=== PATIENT | female | born 1965 | race Caucasian/White ===

== ENCOUNTER 2018-03-16 10:32 | Emergency (ER) | payer OTHER, SELFPAY ==
[2018-03-16 10:34] VITALS: BP 154/106; PULSE 79; RESP 17; TEMP 36.9; O2SAT 97; BMI 42.4
--- NOTE | 2018-03-16 10:51 | RAD_ITS ---
STUDY: X-RAY - LEFT FOOT CLINICAL: Female, 52 years old. Fourth toe dislocation TECHNIQUE: 3 view(s) of the foot. COMPARISON: None. FINDINGS: There is fracture at the fourth proximal phalanx at the midshaft. The joint spaces are well-maintained. Plantar calcaneal enthesophyte. Os trigonum. No osseous destruction. RAD/Foot min 3 Views IMPRESSION: Fracture fourth proximal phalanx Electronically Signed: Doug Seals MD at 11:13 EDT Tel , Service support ,
--- NOTE | 2018-03-16 10:56 | ED.DCSUM_ITS ---
- ER Visit Summary Date of Service: 03/16/18 Chief Complaint: Left foot injury History of Present Illness: The patient is a 52 F with a history of neuropathy who presents to the emergency department with left foot injury. The patient was in her normal state of health. She states she was waking up and trying to go to the bathroom. She states that she accidentally kicked a tiled stair. She had immediate pain in her left fourth toe. She states she has had some difficulty walking because of pain. She did not fall, she did not strike her head. She denies any other injury. Physical Examination: Vital signs reviewed General: Well-nourished, well-developed Head: Normocephalic, atraumatic Eyes: Pupils equal and reactive, extraocular muscles intact Neck, supple, no lymphadenopathy Heart: Regular rate and rhythm Respiratory: No distress, clear bilaterally Abdomen: Soft, nontender, nondistended, no peritoneal signs Back: Nontender Extremities: Mild tenderness at the distal fourth phalanges of the left foot, normal pulses, skin intact, no edema, no cords Skin: Normal color no rash Neuro: Alert and oriented, no focal or lateralizing deficits Test Results: [] Emergency Department Course and Treatment: The patient has normal pulses and skin is intact. I did obtain plain films. There is evidence of minimally displaced fracture of the proximal fourth phalanx. The patient was placed in a postoperative shoe. She declined analgesics. She will be given podiatry follow -up as an outpatient. She will return with any worsening symptoms. Treatment Plan: [] Disposition: Discharge Impression: 1. Closed fourth left phalangeal fracture This note was generated with [employer] dictation software. It may contain incorrect words, spelling, and punctuation that were not noted in review of the chart prior to signing ED Disposition - Plan for ED Patient: Chief Complaint: Lower Extremity Injury Instructions: ED Fx Toe Closed Referrals: Mansoor Benitez DPM [STAFF PHYSICIAN] -
== END 2018-03-16 11:33 | disposition home or self-care (01) ==
PROVIDERS: Emergency Provider Emergency Medicine; Family Provider Internal Medicine; PCP Internal Medicine
DX: S92.512A Displaced fracture of proximal phalanx of left lesser toe(s), initial encounter for closed fracture (principal); F32.9 Major depressive disorder, single episode, unspecified; G62.9 Polyneuropathy, unspecified; W22.8XXA Striking against or struck by other objects, initial encounter; Y93.9 Activity, unspecified; Y92.9 Unspecified place or not applicable; Z79.899 Other long term (current) drug therapy
CPT/HCPCS: 73630; 99283

== ENCOUNTER → 2018-05-21 14:04 | Outpatient (CLI) | payer OTHER, SELFPAY ==
--- NOTE | 2018-05-21 14:07 | RAD_ITS ---
STUDY: X-RAY - LEFT KNEE REASON FOR EXAM: Female, 52 years old. Knee pain TECHNIQUE: 4 view(s) of the knee. COMPARISON: None. FINDINGS: Normal visualized distal femur. Normal visualized proximal tibia and fibula. Normal proximal tibiofibular articulation. There is no demonstrated fracture. Normal medial femorotibial compartment. There is mild degenerative arthrosis of the lateral femorotibial compartment. Normal patellofemoral articulation. There is no demonstrated joint effusion. The soft tissue structures are unremarkable. RAD/Knee 4 or More Views IMPRESSION: Mild degenerative changes. No acute bony abnormality. Electronically Signed: Josh Guan DO at 14:08 EDT Tel , Service support ,
--- NOTE | 2018-05-21 14:07 | RAD_ITS ---
STUDY: X-RAY - LUMBAR SPINE REASON FOR EXAM: Female, 52 years old. Low back pain TECHNIQUE: 5 view(s) of the lumbar spine were obtained. COMPARISON: None FINDINGS: Normal lumbar lordosis. There is no substantial scoliosis. There is mild anterolisthesis of L5 on S1. There is multilevel endplate spondylosis of the lumbar vertebrae. There is multi-level degenerative disc disease with multi-level disc space narrowing. There is atherosclerotic calcification of the abdominal aorta without a demonstrated aneurysm. RAD/L/S Spine Min 4 Views IMPRESSION: Grade 1 spondylolisthesis at L5-S1. Degenerative changes, without acute fracture. Electronically Signed: Josh Guan DO at 14:06 EDT Tel , Service support ,
--- NOTE | 2018-05-21 14:43 | VDLE_ITS ---
Reason For Study: LEG PAIN RIGHT LEFT CFV is compressible, spontaneous, phasic, GSV is normal. competent and demonstrates normal CFV is compressible, spontaneous, phasic, augmentation. competent, and demonstrates normal Procedure augmentation. Exam performed in department. FV is compressible, spontaneous, phasic, A preliminary report was called and/or faxed competent and demonstrates normal to León Renner. augmentation. POP V is compressible, spontaneous, phasic, competent and demonstrates normal augmentation. T/P Trunk is compressible. PTV is compressible. LT PerV is compressible. Hypoechoic structure noted lt medial pop space measuring 3.3 x 2.2 cm in transverse view. Non-vascular. Interpretation Summary Deep veins of the left lower extremity are patent and compressible segmentally. There is no evidence of left lower extremity deep vein thrombosis. Valvular competence appears intact within the proximal deep venous system on the left . The left greater saphenous vein appears patent and compressible segmentally. A non-vascular, hypoechoic structure is noted in the left medial popliteal space, measuring 3.3 cm x 2.2 cm in transverse dimension. This probably represents a popliteal cyst. Clinical correlation is advised. Ordering Physician: LYNDSEY Napoles Referring Physician: Domi Neff M.D. Performed By: Missy Momin RVT
== END ==
PROVIDERS: Family Provider Internal Medicine; PCP Internal Medicine; Visit Provider Nurse Practitioner Gerontology
DX: M54.5 Low back pain (principal); M25.562 Pain in left knee; M79.605 Pain in left leg
CPT/HCPCS: 72110; 73564; 93971

== ENCOUNTER → 2018-06-17 13:27 | Outpatient (CLI) | payer OTHER, SELFPAY ==
--- NOTE | 2018-06-17 13:29 | MRI_ITS ---
STUDY: MRI LEFT KNEE REASON FOR EXAM: Left knee and leg pain for 2 months, also locking and clicking. TECHNIQUE: Standardized fat and water weighted pulse sequences were obtained in all 3 orthogonal planes. COMPARISON: Radiographs 05/21/2018. FINDINGS: Normal medial meniscus. Normal hyaline cartilage of the medial femorotibial compartment. There are small marginal osteophytes of the medial femorotibial compartment. Normal medial femoral condyle and tibial plateau. There is mild periligamentous inflammation of the medial collateral ligament (T2 coronal image 15). Normal distal semimembranosus, gracilis and semitendinosus tendons. There is a complex of the anterior horn and anterior body of the lateral meniscus (proton-density sagittal images 29-34; proton density coronal images 15, 16) and a small horizontal tear of the free margin of the posterior horn of the lateral meniscus (proton-density sagittal images 33, 34). There is peripheral subluxation of the lateral meniscus. There is arthrosis of the lateral femorotibial compartment with chondral loss (T2 sagittal image 18. There is very mild subchondral bone edema of the lateral tibial plateau (T2 coronal image 14), a stress phenomenon. Normal proximal tibiofibular articulation. Normal lateral collateral (fibular) ligament. Normal popliteus tendon. Normal biceps femoris tendon. Normal anterior cruciate ligament (ACL). Normal posterior cruciate ligament (PCL). Normal congruent patellofemoral articulation. There is arthrosis of the patellofemoral compartment with chondral thinning (T2 sagittal image 16). Normal medial and lateral patellar retinaculum. Normal quadriceps tendon. Normal patellar tendon. Normal Hoffa's fat pad. There is a fybic-yv-kjacgvxm sized joint effusion. There is a popliteal cyst measuring 8.2 cm in length with mild extravasation of fluid (T2 sagittal images 4-10). There are superficial venous varicosities at the anterior aspect of the knee. The otherwise visualized osseous structures are unremarkable. MRI/Lower Ext Joint Only (Routine) IMPRESSION: Lateral meniscal tear. Arthrosis of the lateral femorotibial and patellofemoral compartments. Very mild subchondral bone edema of the lateral tibial plateau, a stress phenomenon. Mild periligamentous inflammation of the medial collateral ligament. Joint effusion. Popliteal cyst with mild extravasation of fluid. Electronically Signed: Dg Root MD at 15:24 EDT Tel , Service support ,
== END ==
PROVIDERS: Family Provider Internal Medicine; PCP Internal Medicine; Visit Provider Orthopaedic Surgery
DX: S83.282A Other tear of lateral meniscus, current injury, left knee, initial encounter (principal)
CPT/HCPCS: 73721

== ENCOUNTER → 2019-02-26 16:04 | Outpatient (CLI) | payer OTHER, SELFPAY ==
[2019-02-26 17:31] LABS: Absolute Lymphocyte Count 1.49 X10^3/ul (0.83-4.51); Basophil# 0.04 X10^3/uL; Basophil% 0.5 % (0-1); Eosinophil# 0.21 X10^3/uL; Eosinophils% 2.5 % (0-5); Hematocrit 41.9 % (37-47); Hemoglobin 14.1 g/dl (12.0-15.0); Lymphocyte # 1.49 X10^3/ul (4.0); Lymphocyte % 17.6 % (19-41); Mean Corp Hgb Conc 33.7 g/gl (32-36); Mean Corpuscular Hgb 29.8 pg (27.0-32.0); Mean Corpuscular Volume 88.6 fL (81-99); Mean Platelet Vol. 10.9 fl (6.2-12.0); Monocyte# 0.77 X10^3/uL; Monocyte% 9.1 % (0-10); Neutrophil # 5.97 X10^3/uL (2.7-7.7); Neutrophil % 70.2 % (47-70); Platelet Count 284 K/mm3 (150-450); RBC Distribution Width SD 41.9 fl (35.1-43.9); Red Blood Count 4.73 M/mm3 (4.2-5.4); White Blood Count 8.5 K/mm3 (4.4-11.0)
[2019-02-26 17:58] LABS: Hemoglobin A1c 5.6 % (4.2-6.3)
[2019-02-26 18:00] LABS: POSITIVE COUNT NO; POSITIVE DIFFERENTIAL NO; POSITIVE MORPHOLOGY NO
[2019-02-26 18:08] LABS: ALB/GLOB Ratio 0.9 RATIO (0.9-2.4); AST(SGOT) 21 U/L (15-37); Alanine Aminotransfer ALT/SGPT 24 U/L (13-56); Albumin, Serum 3.5 g/dL (3.2-5.0); Alkaline Phosphatase 69 U/L (45-117); Anion Gap 7 (5-15); BUN 16 mg/dL (7-18); BUN/Creat Ratio 25.9 RATIO (10-20); Calcium,Total 8.6 mg/dL (8.5-10.1); Chloride 103 mmol/L (98-107); Cholesterol 200 mg/dL (200); Creatinine, Serum 0.62 mg/dL (0.55-1.02); EST Glomerular Filtration Rate 107 mL/min (>60); Est Glom Filt Rate - Afr Amer 129 mL/min (>60); Globulin 3.9 g/dL (2.2-4.2); Glucose 76 mg/dL (74-106); High Density Lipoprotein 45 mg/dL; Potassium 3.9 mmol/L (3.5-5.1); Protein, Total 7.4 g/dL (6.4-8.2); Sodium Level 136 mmol/L (136-145); Thyroid Stim Hormone (TSH) 0.96 uIU/mL (0.358-3.74); Triglycerides 81 mg/dL; Very Low Density Lipoprotein 16 mg/dL (5-40)
== END ==
PROVIDERS: Family Provider Internal Medicine; PCP Internal Medicine; Referring Provider Registered Nurse; Visit Provider Registered Nurse
DX: M62.81 Muscle weakness (generalized) (principal); E66.9 Obesity, unspecified; R53.82 Chronic fatigue, unspecified
CPT/HCPCS: 36415; 80053; 80061; 83036; 84443; 85025

== ENCOUNTER → 2019-12-04 12:46 | Outpatient (CLI) | payer OTHER, SELFPAY ==
[2019-08-29 10:43] VITALS: BMI 42.4
[2019-12-04 13:49] LABS: Absolute Lymphocyte Count 1.34 X10^3/uL (0.83-4.51); Absolute Neutrophil Count 3.4 X10^3/uL (2.0-7.7); Basophil# 0.05 X10^3/uL; Basophil% 0.9 % (0-1); Eosinophil# 0.35 X10^3/uL; Eosinophils% 6.3 % (0-5); Hemoglobin 14.2 g/dL (12.0-15.0); Lymphocyte # 1.34 X10^3/ul (4.0); Mean Corp Hgb Conc 32.3 g/dL (32-36); Mean Corpuscular Hgb 30.5 pg (27.0-32.0); Mean Corpuscular Volume 94.6 fL (81-99); Mean Platelet Vol. 9.9 fl (6.2-12.0); Monocyte# 0.44 X10^3/uL; Monocyte% 7.9 % (0-10); NRBC Flagged by Analyzer 0 % (0-5); Neutrophil % 60.7 % (47-70); Platelet Count 251 K/mm3 (150-450); RBC Distribution Width CV 12.5 % (11.6-14.6); RBC Distribution Width SD 43.7 fl (35.1-43.9); Red Blood Count 4.65 M/mm3 (4.2-5.4); White Blood Count 5.6 K/mm3 (4.4-11.0)
[2019-12-04 14:14] LABS: Color, Urine Straw (Yellow); Glucose, Dipstick Normal (Normal); Ketone-Dipstick Negative (Negative); Leukocyte Esterase-Dipstick Negative /ul (Negative); Nitrite-Dipstick Negative (Negative); Occult Blood-Urine 10 /ul (Negative); Protein-Dipstick Negative (Negative); Specific Gravity, Urine 1.005 (1.002-1.030); Urine Bilirubin Dipstick Negative (Negative); Urine Clarity Clear (Clear); Urine Urobilinogen Normal (Normal)
[2019-12-04 14:33] LABS: AST(SGOT) 21 U/L (15-37); Alanine Aminotransfer ALT/SGPT 36 U/L (13-56); Albumin, Serum 3.9 g/dL (3.2-5.0); Alkaline Phosphatase 63 U/L (45-117); Anion Gap 4 (5-15); BUN 18 mg/dL (7-18); BUN/Creat Ratio 26.9 RATIO (10-20); Calcium,Total 9.1 mg/dL (8.5-10.1); Chloride 105 mmol/L (98-107); Cholesterol 272 mg/dL (200); Creatinine, Serum 0.67 mg/dL (0.55-1.02); EST Glomerular Filtration Rate 97 mL/min (>60); Est Glom Filt Rate - Afr Amer 118 mL/min (>60); Globulin 4.1 g/dL (2.2-4.2); Glucose 83 mg/dL (74-106); High Density Lipoprotein 73 mg/dL; Potassium 3.8 mmol/L (3.5-5.1); Sodium Level 138 mmol/L (136-145); Triglycerides 57 mg/dL; Very Low Density Lipoprotein 11 mg/dL (5-40)
[2019-12-04 14:34] LABS: BNP,B-Type NATRIURETIC PEPTIDE 50.9 pg/mL (0-100); Vitamin D,25 Hydroxy 64.4 ng/mL (29.95-100.01)
[2019-12-07 03:06] LABS: Red Blood Cell Count Test/G6PD 4.65 x10E6/uL (3.77-5.28)
[2019-12-07 14:11] LABS: G6PD Quant Test 234 (146-376)
== END ==
PROVIDERS: Family Provider Internal Medicine; PCP Internal Medicine; Referring Provider Nurse Practitioner Family; Visit Provider Nurse Practitioner Family
DX: R53.82 Chronic fatigue, unspecified (principal); M62.81 Muscle weakness (generalized); E66.9 Obesity, unspecified
CPT/HCPCS: 36415; 80053; 80061; 81002; 82306; 82955; 83880; 85025

== ENCOUNTER → 2021-03-01 10:28 | Outpatient (CLI) | payer OTHER, SELFPAY ==
[2019-08-29 10:43] VITALS: BMI 42.4
--- NOTE | 2021-03-01 10:30 | CT_ITS ---
STUDY: CT ABDOMEN AND PELVIS WITH CONTRAST REASON FOR EXAM: Female, 55 years old. ABD PAIN -- ABD PAIN,ACUTE,NONLOCALIZED RADIATION DOSAGE (If Supplied By Facility): CTDIvol = ( 15.35 ) mGy, DLP = ( 1135.81 ) mGycm TECHNIQUE: Transaxial images were obtained from the dome of the diaphragm to the symphysis pubis without oral contrast. Oral and amp; IV Readi-CAT and amp; 100mL Isovue-300 was administered. Sagittal and coronal images were reconstructed. Individualized dose optimization techniques were used for this CT. COMPARISON: 2016 FINDINGS: The visualized lung bases are unremarkable. The visualized portions of the heart are within normal limits. Normal liver. Normal gallbladder and extrahepatic biliary system. Normal spleen. Normal pancreas. Normal bilateral adrenal glands. Normal right kidney. Normal left kidney. Normal visualized stomach. Normal small intestine. Scattered sigmoid diverticulosis without CT evidence of acute diverticulitis. The appendix is visualized and appears normal. Appendix best seen on coronal reconstructed images 46 through 55 There is diffuse atherosclerotic calcification of the abdominal aorta, without a demonstrated aneurysm. Normal inferior vena cava. Normal retroperitoneum. Normal urinary bladder. Uterus is present, the endometrium cannot be accurately evaluated with CT. There is a small umbilical hernia containing fat. There are diffuse degenerative changes of the visualized lumbar spine, and pelvis. There is a stable grade 1-2 spondylolisthesis of L5 on S1 CT/Abdomen/Pelvis WITH Contrast IMPRESSION: No suspicious solid organ abnormality Diverticulosis No free intraperitoneal fluid, air, or suspicious adenopathy Electronically Signed: Jerry Longoria MD at 13:21 EDT , Service support ,
== END ==
PROVIDERS: PCP Internal Medicine; Referring Provider Nurse Practitioner; Visit Provider Nurse Practitioner
DX: R10.9 Unspecified abdominal pain (principal)
CPT/HCPCS: 74177; Q9967

== ENCOUNTER → 2021-03-15 16:43 | Outpatient (CLI) | payer OTHER, SELFPAY ==
[2021-03-07 12:55] VITALS: BMI 41.6
[2021-03-15 18:47] LABS: ALB/GLOB Ratio 0.9 RATIO (0.9-2.4); AST(SGOT) 16 U/L (15-37); Alanine Aminotransfer ALT/SGPT 24 U/L (13-56); Albumin, Serum 3.6 g/dL (3.2-5.0); Alkaline Phosphatase 86 U/L (45-117); Anion Gap 6 (5-15); BUN 15 mg/dL (7-18); BUN/Creat Ratio 21.3 RATIO (10-20); Calcium,Total 9.1 mg/dL (8.5-10.1); Chloride 103 mmol/L (98-107); Cholesterol 231 mg/dL (200); EST Glomerular Filtration Rate 91 mL/min (>60); Est Glom Filt Rate - Afr Amer 110 mL/min (>60); Glucose 81 mg/dL (74-106); Hemoglobin A1c 5.6 % (3.8-5.6); High Density Lipoprotein 52 mg/dL; Potassium 3.9 mmol/L (3.5-5.1); Protein, Total 7.6 g/dL (6.4-8.2); Sodium Level 136 mmol/L (136-145); Triglycerides 131 mg/dL; Very Low Density Lipoprotein 26 mg/dL (5-40)
== END ==
PROVIDERS: PCP Internal Medicine; Referring Provider Nurse Practitioner Family; Visit Provider Nurse Practitioner Family
DX: M62.81 Muscle weakness (generalized) (principal); R53.82 Chronic fatigue, unspecified; E66.9 Obesity, unspecified
CPT/HCPCS: 36415; 80053; 80061; 83036; 86140

== ENCOUNTER 2022-06-08 12:10 | Outpatient (RCR) | payer OTHER, SELFPAY | END 2022-06-25 23:59 | LOC: NS 12:10 | PROVIDERS: PCP Internal Medicine; Referring Provider Specialist; Visit Provider Specialist | DX: Z71.3 Dietary counseling and surveillance (principal); E66.01 Morbid (severe) obesity due to excess calories; Z68.42 Body mass index [BMI] 45.0-49.9, adult | CPT/HCPCS: 97802 ==

== ENCOUNTER 2022-06-19 16:30 | Outpatient (RCR) | payer OTHER, SELFPAY ==
--- NOTE | 2022-05-24 13:52 | HP.PTEVAL_ITS ---
Patient's Visit Information VICKIE NIEVES is a 57 year old F referred to Physical Therapy by Dr. Doug Gordon MD with a diagnosis of B knee OA. Date of Evaluation: 05/24/22 Physical Therapist: Jass Villanueva DPT - Visit Plan Frequency: 2x /Week Duration: 4-6 Weeks Plan: Start with general mobility, hip strengthening, quad/HS strengthening in aquatic setting. Progress to HEP as tolerated. Pt. has marked B knee valgus and higher levels of pain with all mobility, adjust accordingly. - Subjective Pt. is here today for her initial evaluation with diagnosis of B knee pain. She reports having increased pain for a few years now, progressing since. She does have a history of meniscal tears, which did get better. She has been doing less over the past few years due to COVID and with family members passing away. Increases pain: initially getting up, walking, stairs. Decreased pain: sitting. She does report increased pain at night after her daily activities. She also reports increased pain with pushing on gas pedal. She denies N/T in either LE, but does have pain in distal LEs frequently. She reports physician did suggest eventual need for B knee replacement and possible hip replacement. She is hopeful to reduce symptoms in order to get back to some recreational activities with decreased B knee pain. - Pain L knee Pain Intensity (Out of 10): 4 Pain Intensity Range: 2, 8 R knee Pain Intensity (Out of 10): 5 Pain Intensity Range: 2, 9 - Objective POSTURE: Pt. has general flexed posture. She is over wt. Pt. has marked B knee valgus and flexed posture. PALPATION: Pt. has increased pain at B medial and lateral joint lines. Slight pain at R posterior medial knee. NEURO: Pt. has normal sensation and normal DTR in BLEs. Pt. is able to rise on heels and toes with balance aide. ROM: L knee- 0-0-110deg. Pain with over pressures. R knee 0-0-98deg. Increased pain limiting R knee ROM more than L. Pt. has normal HS length, but has limited hip extension to neutral bilaterally. Crepitus noted with B knee flexion and extension motions. MMT: LLE: ankle 5/5; L knee: ext 4+/5, flexion 4+/5; hip: flexion 4/5, abd 4/5, ext 4/5. RLE: ankle 5/5 throughout; knee: ext 4/5 increase NW, flexion 4/5 NE; hip: flexion 4+/5, abd 4/5, ext 4/5. GAIT: Pt. ambulates without AD. She has decreased step length bilaterally. She has a marked valgus deformity Johnnie, worse in SLS phase. She does limit SLS on BLEs. Minimal hip extension noted as well. STAIRS: BHR needed. pain and difficulty with ascending, worse with descending. - Balance/Special Test Scores Lower Extremity Functional Score: 20 - Goals Goal 1:: LTG: Pt. to be I with HEP for both land and aquatics. Goal Time Frame: 4-6 Weeks Goal 2:: STG: Pt. to be able to sleep throughout the night without increase in B knee pain. Goal Time Frame: 2-4 Weeks Goal 3:: LTG: Pt. to have increased BLE strength to 5/5 throughout without increase in symptoms. Goal Time Frame: 4-6 Weeks Goal 4:: LTG: Pt. to ambulate with improved gait pattern including reduced B knee valgus, improved B hip extension and decreased B hip Trendelenburg positioning. Goal Time Frame: 4-6 Weeks Goal 5:: LTG: Pt. to negotiate 1 flight of stairs with 2 HR with 0-3/10 pain in B knees allowing for good tolerance to get to bedroom. Goal Time Frame: 4-6 Weeks - Rehabilitation Potential Physical Therapy Diagnosis: Pt. has signs and symptoms consistent with B knee OA resulting in BLE weakness, limtied B knee ROM and increased pain with all functional mobility/gait. Pt. would benefit from PT in aquatic setting in order to reduce stress to B knees allowing for an environment to progress mobility/strength and ROM. Rehabilitation Potential: Fair - Anticipated Interventions Patient/Client Instruction: Educate patient on: Condition, Plan of Care, Risk Factors, Benefits of Fitness Program For the Purpose of:: To facilitate caregiver knowledge, To improve self management, To prevent re-injury, To improve ability to perform tasks related to life management, To improve tolerance to ADL's Therapeutic Exercise to Include: Strength training, Power training, Body mechanics, Postural training, Flexibilty training, Gait and locomotor training, In an aquatic setting, Active ROM For the Purpose of:: To decrease pain, To decrease swelling/inflammation, To increase ROM, To improve nutrient delivery to tissue, To increase oxygenation perfusion, To improve muscle performance and motor function, To improve ability to perform ADL's, To increase tolerance to activity/condition/position, To improve performance and independence with ADL's, To improve gait and locomotor functions, To improve health of tissue, To decrease soft tissue restriction, To increase flexibility/ROM, To improve endurance, To improve balance Thank you for the opportunity to evaluate your patient. For Medicare and Medicare HMO plans, please review the plan of care and approve it. It will need to be FAXED BACK to us at [phone] for Medicare purposes. For Medicare only, by signing this I certify the plan of care. Please let me know if there are questions or concerns regarding this plan of care. Physician Signature: Date:
== END 2022-06-19 19:00 | disposition home or self-care (01) ==
LOC: PT 16:30
PROVIDERS: PCP Internal Medicine; Referring Provider Specialist; Visit Provider Specialist
DX: M17.0 Bilateral primary osteoarthritis of knee (principal)
CPT/HCPCS: 97113; 97161

== ENCOUNTER → 2023-01-10 | Outpatient (CLI) | payer OTHER, SELFPAY | END | disposition home or self-care (01) | PROVIDERS: PCP Nurse Practitioner Family; Referring Provider Nurse Practitioner Family; Visit Provider Nurse Practitioner Family | DX: Z00.00 Encounter for general adult medical examination without abnormal findings (principal) | CPT/HCPCS: 36415 ==

== ENCOUNTER → 2023-10-15 | Outpatient (CLI) | payer OTHER, SELFPAY ==
[2023-10-15 16:34] LABS: Absolute Lymphocyte Count 0.77 X10^3/uL (0.83-4.51); Absolute Neutrophil Count 5.4 X10^3/uL (2.0-7.7); Basophil# 0.05 X10^3/uL; Basophil% 0.7 % (0-1); Eosinophils% 4.2 % (0-5); Hematocrit 44.6 % (37-47); Hemoglobin 14.3 g/dL (12.0-15.0); Lymphocyte # 0.77 X10^3/ul (0.83-4.51); Lymphocyte % 10.7 % (19-41); Mean Corp Hgb Conc 32.1 g/dL (32-36); Mean Corpuscular Hgb 30.4 pg (27.0-32.0); Mean Corpuscular Volume 94.7 fL (81-99); Mean Platelet Vol. 10.6 fl (6.2-12.0); Monocyte# 0.71 X10^3/uL; Monocyte% 9.8 % (0-10); NRBC Flagged by Analyzer 0 % (0-5); Neutrophil # 5.37 X10^3/uL (2.7-7.7); Neutrophil % 74.5 % (47-70); Platelet Count 290 K/mm3 (150-450); RBC Distribution Width CV 12.6 % (11.6-14.6); RBC Distribution Width SD 43.8 fl (35.1-43.9); Red Blood Count 4.71 M/mm3 (4.2-5.4); White Blood Count 7.2 K/mm3 (4.4-11.0)
[2023-10-15 16:58] LABS: Progesterone Level 0.37 ng/mL (See Comment)
[2023-10-15 18:54] LABS: ALB/GLOB Ratio 0.9 RATIO (0.9-2.4); AST(SGOT) 15 U/L (15-37); Alanine Aminotransfer ALT/SGPT 26 U/L (13-56); Albumin, Serum 3.6 g/dL (3.2-5.0); Alkaline Phosphatase 64 U/L (45-117); Anion Gap 2 (5-15); BUN 18 mg/dL (7-18); BUN/Creat Ratio 23.6 RATIO (10-20); Calcium,Total 8.8 mg/dL (8.5-10.1); Chloride 104 mmol/L (98-107); Creatinine, Serum 0.76 mg/dL (0.55-1.02); EST Glomerular Filtration Rate 82 mL/min (>60); Est Glom Filt Rate - Afr Amer 100 mL/min (>60); Estradiol 26.6 pg/mL; Globulin 3.8 g/dL (2.2-4.2); Glucose 89 mg/dL (74-106); Potassium 4.3 mmol/L (3.5-5.1); Protein, Total 7.4 g/dL (6.4-8.2); Sodium Level 137 mmol/L (136-145)
== END | disposition home or self-care (01) ==
LOC: BIMLAB 15:28
PROVIDERS: PCP Nurse Practitioner Family; Visit Provider Nurse Practitioner Family
DX: M25.569 Pain in unspecified knee (principal); G60.3 Idiopathic progressive neuropathy; R29.6 Repeated falls; M79.673 Pain in unspecified foot; M51.36 Other intervertebral disc degeneration, lumbar region; M54.2 Cervicalgia; R61 Generalized hyperhidrosis; M62.81 Muscle weakness (generalized); A69.20 Lyme disease, unspecified; A44.0 Systemic bartonellosis; A79.9 Rickettsiosis, unspecified; E28.9 Ovarian dysfunction, unspecified
CPT/HCPCS: 36415; 80053; 82627; 82670; 84144; 84403; 85025; 86140; 82626

== ENCOUNTER → 2024-07-01 | Outpatient (CLI) | payer OTHER, SELFPAY | END | disposition home or self-care (01) | PROVIDERS: PCP Nurse Practitioner Family; Referring Provider Nurse Practitioner Gerontology; Visit Provider Nurse Practitioner Gerontology | DX: I48.91 Unspecified atrial fibrillation (principal) | CPT/HCPCS: 93225; 93226 ==

== ENCOUNTER → 2024-10-31 | Outpatient (CLI) | payer OTHER, SELFPAY ==
--- NOTE | 2024-10-31 16:18 | RAD_ITS ---
INDICATION: PAIN LEFT WRIST PAIN NO KNOWN INJURY EXAMINATION/TECHNIQUE: X-RAY - LEFT XR Wrist Min 3 Views 3 VIEWS COMPARISON: Prior study dated: 10/28/2010 FINDINGS: BONES: No fracture demonstrated. Mild erosion at the ulnar styloid process which was not present on the prior. JOINTS: No dislocation. SOFT TISSUES: Unremarkable. RAD/Wrist min 3 Views IMPRESSION: Mild erosion of the ulnar styloid process. Nonspecific can be seen with rheumatoid arthritis. No evidence of fracture. Electronically Signed: Mai Laguna MD at 8:12 EST ,
== END | disposition home or self-care (01) ==
LOC: MTLAB 15:55
PROVIDERS: PCP Nurse Practitioner Family; Referring Provider Nurse Practitioner Family; Visit Provider Nurse Practitioner Family
DX: M25.532 Pain in left wrist (principal)
CPT/HCPCS: 36415; 73110

== ENCOUNTER → 2024-12-01 | Outpatient (CLI) | payer OTHER, SELFPAY ==
[2024-12-01 18:34] LABS: Absolute Lymphocyte Count 0.69 X10^3/uL (0.83-4.51); Absolute Neutrophil Count 5.7 X10^3/uL (2.0-7.7); Basophil# 0.07 X10^3/uL; Eosinophil# 0.33 X10^3/uL; Eosinophils% 4.6 % (0-5); Hematocrit 44.6 % (37-47); Hemoglobin 14.9 g/dL (12.0-15.0); Lymphocyte # 0.69 X10^3/ul (0.83-4.51); Lymphocyte % 9.6 % (19-41); Mean Corp Hgb Conc 33.4 g/dL (32-36); Mean Corpuscular Hgb 31.2 pg (27.0-32.0); Mean Corpuscular Volume 93.5 fL (81-99); Mean Platelet Vol. 11.1 fl (6.2-12.0); Monocyte# 0.44 X10^3/uL; Monocyte% 6.1 % (0-10); NRBC Flagged by Analyzer 0 % (0-5); Neutrophil # 5.66 X10^3/uL (2.7-7.7); Neutrophil % 78.6 % (47-70); Platelet Count 290 K/mm3 (150-450); RBC Distribution Width CV 12.2 % (11.6-14.6); RBC Distribution Width SD 42.3 fl (35.1-43.9); Red Blood Count 4.77 M/mm3 (4.2-5.4); White Blood Count 7.2 K/mm3 (4.4-11.0)
[2024-12-01 18:38] LABS: Erythrocyte Sedimentation Rate 30 mm/hr (0-30)
[2024-12-01 18:42] LABS: ALB/GLOB Ratio 0.9 RATIO (0.9-2.4); AST(SGOT) 21 U/L (15-37); Alanine Aminotransfer ALT/SGPT 28 U/L (13-56); Albumin, Serum 3.7 g/dL (3.2-5.0); Alkaline Phosphatase 74 U/L (45-117); Anion Gap 5 (5-15); BUN 16 mg/dL (7-18); BUN/Creat Ratio 21.2 RATIO (10-20); Calcium,Total 9.5 mg/dL (8.5-10.1); Chloride 104 mmol/L (98-107); Creatinine, Serum 0.75 mg/dL (0.55-1.02); EST Glomerular Filtration Rate 83 mL/min (>60); Est Glom Filt Rate - Afr Amer 101 mL/min (>60); Globulin 3.9 g/dL (2.2-4.2); Glucose 97 mg/dL (74-106); Potassium 4.3 mmol/L (3.5-5.1); Protein, Total 7.6 g/dL (6.4-8.2); Sodium Level 136 mmol/L (136-145)
[2024-12-03 13:07] LABS: ANTINUCLEAR ANTIBODIES DIRECT Negative (Negative)
== END | disposition home or self-care (01) ==
PROVIDERS: PCP Nurse Practitioner Family; Referring Provider Nurse Practitioner Family; Visit Provider Nurse Practitioner Family
DX: Z13.220 Encounter for screening for lipoid disorders (principal); Z82.49 Family history of ischemic heart disease and other diseases of the circulatory system; Z83.2 Family history of diseases of the blood and blood-forming organs and certain disorders involving the immune mechanism; D68.59 Other primary thrombophilia
CPT/HCPCS: 36415; 80053; 85025; 85652; 86038; 86140

== ENCOUNTER → 2025-04-06 12:32 | Outpatient (REF) | payer OTHER, SELFPAY ==
[2025-04-06 14:18] LABS: D-Dimer Quantitative (DVT/PE) 1.66 FEU/ug/m (0.27-0.49)
== END ==
LOC: LABSPEC 12:32
PROVIDERS: PCP Nurse Practitioner Family; Referring Provider Nurse Practitioner Family; Visit Provider Nurse Practitioner Family
DX: R01.1 Cardiac murmur, unspecified (principal); Z86.718 Personal history of other venous thrombosis and embolism
CPT/HCPCS: 85379

== ENCOUNTER 2025-04-06 12:47 | Emergency (ER) | payer OTHER, SELFPAY ==
[2025-04-06] VITALS (8 sets, daily range): BP systolic 100–164; BP diastolic 62–97; PULSE 68–110; RESP 15–22; TEMP 36.6; O2SAT 97–100; BMI 47.0
--- NOTE | 2025-04-06 12:53 | EKG12_ITS ---
Test Reason : GENERAL Blood Pressure : */* mmHG Vent. Rate : 94 BPM Atrial Rate : * BPM P-R Int : * ms QRS Dur : 78 ms QT Int : 350 ms P-R-T Axes : * 13 29 degrees QTcB Int : 437 ms Atrial fibrillation Low voltage QRS Abnormal ECG Confirmed by Winston Amos ([id number]), design editor EMILIANO GREEN ([id number]) on 04/07/2025 9:10:08 AM Referred By: Confirmed By: Winston Amos
--- NOTE | 2025-04-06 13:38 | RAD_ITS ---
PROCEDURE: CHEST PA AND LATERAL 04/06/2025 REASON FOR EXAM: SOB TECHNIQUE: Frontal and lateral views of the chest. COMPARISON: None FINDINGS: Heart size and mediastinal configuration are within normal limits. There is no focal infiltrate or consolidation. There is no pneumothorax or effusion. Aortic calcifications are visible. There is no visible acute bony abnormality. RAD/Chest PA and Lateral IMPRESSION: No acute process is identified in the chest. Reading Location: [facility]
[2025-04-06 13:45] LABS: Absolute Lymphocyte Count 0.74 X10^3/uL (0.83-4.51); Absolute Neutrophil Count 4.9 X10^3/uL (2.0-7.7); Basophil# 0.07 X10^3/uL; Eosinophil# 0.41 X10^3/uL; Eosinophils% 6.1 % (0-5); Hematocrit 40.6 % (37-47); Hemoglobin 13.3 g/dL (12.0-15.0); Lymphocyte # 0.74 X10^3/ul (0.83-4.51); Lymphocyte % 10.9 % (19-41); Mean Corp Hgb Conc 32.8 g/dL (32-36); Mean Corpuscular Hgb 31.1 pg (27.0-32.0); Mean Corpuscular Volume 94.9 fL (81-99); Mean Platelet Vol. 10.1 fl (6.2-12.0); Monocyte# 0.65 X10^3/uL; Monocyte% 9.6 % (0-10); NRBC Flagged by Analyzer 0 % (0-5); Neutrophil # 4.88 X10^3/uL (2.7-7.7); Neutrophil % 72.3 % (47-70); Platelet Count 247 K/mm3 (150-450); RBC Distribution Width CV 13.8 % (11.6-14.6); Red Blood Count 4.28 M/mm3 (4.2-5.4); White Blood Count 6.8 K/mm3 (4.4-11.0)
[2025-04-06 14:13] LABS: Anion Gap 13 (5-15); BUN 15 mg/dL (4-19); Calcium,Total 9.2 mg/dL (7.6-11.0); Carbon Dioxide 21.6 mmol/L (21.0-32.0); Chloride 104 mmol/L (98-108); Creatinine, Serum 0.74 mg/dL (0.70-1.20); EST Glomerular Filtration Rate 93 (>60); Estimated Creatinine Clearance 101.59 ml/min (50-250); Glucose 99 mg/dL (70-99); Potassium 4.6 mmol/L (3.3-5.1); Sodium Level 138 mmol/L (133-145); Troponin T High Sensitivity 28 ng/L (<=14)
--- NOTE | 2025-04-06 14:24 | ED.RN ---
called lab to inquire about d-dimer done earlier today
--- NOTE | 2025-04-06 15:11 | CT_ITS ---
EXAM: CT Angiography Chest Without and With Intravenous Contrast CLINICAL INDICATION: SOB, ELEVATED D-DIMER TECHNIQUE: Axial computed tomographic angiography images of the chest without and with intravenous contrast. This CT exam was performed using one or more of the following dose reduction techniques: automated exposure control, adjustment of the mA and/or kV according to patient size, and/or use of iterative reconstruction technique. MIP reconstructed images were created and reviewed. COMPARISON: No relevant prior studies available. FINDINGS: LIMITATIONS: Suboptimal opacification of the pulmonary arteries. PULMONARY ARTERIES: No pulmonary embolism is identified. Some of the distal pulmonary arteries cannot be evaluated due to suboptimal opacification. AORTA: No acute findings. No thoracic aortic aneurysm. LUNGS AND PLEURAL SPACES: Unremarkable. No mass. No consolidation. No significant effusion. No pneumothorax. HEART: Unremarkable. No cardiomegaly. No significant pericardial effusion. No evidence of RV dysfunction. BONES/JOINTS: No acute fracture. No dislocation. SOFT TISSUES: Unremarkable. LYMPH NODES: Unremarkable. No enlarged lymph nodes. CT/CTA Chest W/WO Contrast IMPRESSION: No pulmonary embolism is identified. Some of the distal pulmonary arteries can not be evaluated due to suboptimal opacification. Reading Location: [id number]
--- NOTE | 2025-04-06 15:21 | ED.VIS.DYS ---
HPI History of Present Illness Chief Complaint: Shortness of Breath Informant: patient Narrative Narrative: 59-year-old female history of mild intermittent asthma states she has been dealing with pneumonia for the past month and being cared for down in [place]. She was on antibiotics for a while but still was having issues, so now she is on day #6/10 of compounded nebulized meropenem for this. She has an albuterol inhaler that she is using for rescue, she started getting short of breath/wheezy yesterday with some coughing with bronchospasm and mild chest tightness the day or 2 before that. No fevers or chills. Cough is occasionally productive. No blood. No change in chronic leg swelling. 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 However since yesterday she is wheezing a lot and it is worse. She went to her PCP today and due to this had a D-dimer. It is elevated. She states the dyspnea was better when she used her albuterol inhaler but not enough to be asymptomatic. She states she does not get asthma flareups very often but has been diagnosed with asthma since she was young. [facility] Medical History Hx of pulmonary embolus Atrial fibrillation Atypical chest pain Arthralgia Frequent falls Dysphagia Anxiety Migraine Asthma Vitamin D deficiency Mitral valve prolapse Hypercholesterolemia Psoriasis IBS (irritable bowel syndrome) Diverticulitis Depression Home Medications ?Medication ?Instructions ?Recorded ?Last Taken ?Type lactobacillus combination no.8 3 3,000 mmu cells PO DAILY 03/07/21 Unknown History billion cell capsule (Adult Probiotic) multivitamin (Multiple Vitamins 1 tablet PO DAILY 03/07/21 04/05/25 History tablet) methocarbamol 500 mg tablet 500 mg PO BID PRN muscle spasm 01/21/24 Unknown History sertraline 50 mg tablet 25 mg PO DAILY 05/16/24 04/06/25 History MEROPENEM BID 04/06/25 Unknown History acetaminophen 325 mg capsule 650 mg PO DAILY PRN fever or pain 04/06/25 04/06/25 History albuterol sulfate 2.5 mg/3 mL 2.5 mg inhalation BID PRN 04/06/25 04/06/25 History (0.083 %) solution for nebulization shortness of breath or wheezing albuterol sulfate 90 mcg/actuation 2 puff inhalation Q4H PRN 04/06/25 04/06/25 History aerosol inhaler shortness of breath or wheezing meloxicam 7.5 mg tablet 7.5 mg PO DAILY 04/06/25 04/05/25 History metoprolol succinate 50 mg 50 mg PO DAILY 04/06/25 04/06/25 History tablet,extended release 24 hr niacin PO DAILY 04/06/25 04/06/25 History prednisone 20 mg tablet 40 mg (2 x 20 mg) PO DAILY 6 days 04/06/25 Unknown Rx #12 tabs soybean, fermented 50 mg capsule 50 mg PO BID 04/06/25 04/06/25 History (Nattokinase) tramadol 50 mg tablet 50 mg PO BID PRN severe pain 04/06/25 04/06/25 History Allergy/AdvReac Type Severity Reaction Status Date / Time celecoxib (From Celebrex) Allergy Shortness Verified 04/06/25 12:49 of breath levofloxacin (From Levaquin) AdvReac Pain in Verified 04/06/25 12:49 joints Family History Mother Asthma Diabetes Heart disease Hypertension CAD (coronary artery disease) COPD (chronic obstructive pulmonary disease) Rheumatoid arthritis Sister Diabetes Heart disease Father , age 44 Sudden cardiac Myocardial infarction Surgical History s/p incision and drainage left shoulder blade abscess (~08/29/19) Detached retina S/P eye surgery S/P section Social History household members: spouse and children housing: house current occupational status: unemployed Smoking Status: Never smoker second hand exposure: Yes alcohol intake: former what type of physical activity do you participate in: none seatbelt use: always do you feel safe at home: Yes ROS ROS ED Constitutional Constitutional ED: Denies chills or fever(s) Eyes Eyes: Denies change in vision or diplopia ENT ENT ED: Denies rhinorrhea or sore throat Cardiovascular Cardiovascular: Reports easily tiring during activity; Denies chest pain, orthostatic symptoms, palpitations or syncope Respiratory/Chest Respiratory/Chest: Reports as per HPI, chest tightness, cough, dyspnea, dyspnea on exertion and wheezing Gastrointestinal Gastrointestinal: Denies abdominal pain, diarrhea, nausea or vomiting Genitourinary Genitourinary ED: Denies dysuria or hematuria Musculoskeletal Musculoskeletal: Denies back pain or neck pain Integumentary Denies abscess or rash Neurologic Neurologic: Denies headache(s), paresthesias or weakness Psychiatric Psychiatric: Denies suicidal thoughts EXAM Physical Exam Const Vital Signs: 04/06/25 12:49 04/06/25 13:42 04/06/25 15:27 Temperature 97.9 F Temperature Source Oral Pulse Rate 106 H 99 110 H Respiratory Rate 22 H 18 16 Respiratory Pattern Blood Pressure 164/97 H Blood Pressure Mean 119 Pulse Ox 98 97 Oxygen Delivery Method Room Air Room Air 04/06/25 15:35 04/06/25 18:07 04/06/25 19:00 Temperature 97.9 F 97.9 F Temperature Source Oral Oral Pulse Rate 90 92 94 Respiratory Rate 22 H 15 17 Respiratory Pattern Blood Pressure 140/85 H 104/66 100/68 Blood Pressure Mean 103 78 78 Pulse Ox 100 99 97 Oxygen Delivery Method Room Air Room Air Room Air 04/06/25 20:00 04/06/25 20:04 Temperature Temperature Source Pulse Rate 89 68 Respiratory Rate 16 18 Respiratory Pattern Normal Blood Pressure 105/62 Blood Pressure Mean 76 Pulse Ox 97 Oxygen Delivery Method Room Air Positive well nourished, well developed and obese General Appearance ED: well developed and NAD Nutritional Appearance: obese HEENT Reports moist mucous membranes normocephalic and atraumatic Eyes PERRL and EOMs intact bilaterally Neck full ROM, no lymphadenopathy, supple and no meningeal signs Resp normal respiratory effort Resp Narrative: Diffuse expiratory wheezes symmetric bilaterally. Converses in full sentences. Cardio regular rate, regular rhythm and no murmurs Rate: Negative for tachycardic GI non-tender and non-distended Auscultation: normoactive bowel sounds Palpation: soft Back/Spine no CVA tenderness General Back: other FROM Extremity normal to inspection General Extremety ED: Yes edema; Negative for pulses abnormal or tenderness General Extremity: edema bilateral lower extremity; Negative for pulses abnormal Neuro oriented x3, CN's II-XII intact bilaterally and no sensory deficits noted Sensorium / Orientation: awake and alert Motor Exam: strength 5/5 throughout Psych mental status grossly normal Skin no rashes or lesions noted and no wounds MDM MDM MDM Narrative Medical decision making narrative: I reviewed her old labs showing elevated D-dimer. Her labs here are unremarkable except for mildly nonspecifically elevated troponin 28. Two-view chest x-ray is normal in my interpretation radiology was in agreement. Given this I also added a proBNP and sent her for CT angiography of the chest to evaluate for PE, as this workup was started as an outpatient, but I think this is more consistent with an asthma exacerbation. Given this while getting these tests we gave her a series of nebulizer treatments and Solu-Medrol IV. She has significant improvement after the nebulizer treatment. Repeat troponins are similar to the prior reading. On my interpretation of the CTA is normal. No PE, no pneumonia. Radiology in agreement. Her proBNP is elevated 2830, she does not appear to be in acute congestive heart failure on the imaging, this may be due to a different reason such as pulmonary hypertension, valvular insufficiency along with cardiac/myocardial strain, she may need an outpatient echo but I do not think she needs that emergently. I am going to put her on a short burst of prednisone and have her follow-up with her primary care she is comfortable with that plan. History & Record Review Additional record(s) reviewed:: Prior labs (D-dimer elevated 1.66) Lab Data Attestation: I reviewed the patient's lab results. Labs: Laboratory Results - last 24 hr 04/06/25 04/06/25 04/06/25 13:38 16:15 18:30 WBC 6.8 RBC 4.28 Hgb 13.3 Hct 40.6 MCV 94.9 MCH 31.1 MCHC 32.8 RDW Std Deviation 48.0 H RDW Coeff of Merlyn 13.8 Plt Count 247 MPV 10.1 Immature Gran % (Auto) 0.100 Neut % (Auto) 72.3 H Lymph % (Auto) 10.9 L Wilkinson % (Auto) 9.6 Eos % (Auto) 6.1 H Baso % (Auto) 1.0 Absolute Neuts (auto) 4.9 Absolute Lymphs (auto) 0.74 L Nucleated RBC % 0 Sodium 138 Potassium 4.6 Chloride 104 Carbon Dioxide 21.6 Anion Gap 13 BUN 15 Creatinine 0.74 Estim Creat Clear Calc 101.59 Est GFR (MDRD) Non-Af 93 BUN/Creatinine Ratio 20.0 Glucose 99 Calcium 9.2 Troponin T High Sens 28 H Troponin T Hi Sens 2 Hr 23 H Troponin T Hi Sens 4Hr 29 H NT pro BNP II 2830 H Radiography Diagnostic Testing: Clinical Impression(s) from Imaging Studies Chest X-Ray 04/06/25 13:38 IMPRESSION: No acute process is identified in the chest. Reading Location: [facility] Chest CTA 04/06/25 15:11 IMPRESSION: No pulmonary embolism is identified. Some of the distal pulmonary arteries cannot be evaluated due to suboptimal opacification. Reading Location: [facility] Rhythm Strip Rhythm Strip: Sinus Rhythm Rate: 95 Ectopy: None EKG Initial EKG: Attestation: I personally reviewed and interpreted this EKG as follows: Interpretation: No Acute Injury Pattern and Atrial Fibrillation (Otherwise unremarkable EKG. Narrow complex. Normal intervals and axis.) Prior EKG tracings: available for review Prior: Unchanged Discharge Plan Triage Chief Complaint: Shortness of Breath ED Provider: Shawn Soni Dx/Rx/DC Orders Clinical Impression: Acute asthma exacerbation Instructions: ED Asthma, Acute (Adult) Prescriptions: New prednisone 20 mg tablet 40 mg PO DAILY 6 Days Qty: 12 0RF No Action multivitamin [Multiple Vitamins] Tablet 1 tablet PO DAILY Adult Probiotic 3 billion cell capsule 3,000 mmu cells PO DAILY Patient Comments: UNSURE OF STRENGTH Rx Instructions: if flare up-tid methocarbamol 500 mg tablet 500 mg PO BID PRN (Reason: muscle spasm) sertraline 50 mg tablet 25 mg PO DAILY meloxicam 7.5 mg tablet 7.5 mg PO DAILY Patient Comments: PT TAKES AT BEDTIME metoprolol succinate 50 mg tablet extended release 24 hr 50 mg PO DAILY albuterol sulfate 2.5 mg /3 mL (0.083 %) solution for nebulization 2.5 mg inhalation BID PRN (Reason: shortness of breath or wheezing) albuterol sulfate 90 mcg/actuation HFA aerosol inhaler 2 puff INHALATION Q4H PRN (Reason: shortness of breath or wheezing) tramadol 50 mg tablet 50 mg PO BID PRN (Reason: severe pain) Patient Comments: PT ONLY TKAES ONCE A DAY IN THE MORNING Nattokinase 50 mg capsule 50 mg PO BID acetaminophen 325 mg capsule 650 mg PO DAILY PRN (Reason: fever or pain) niacin PO DAILY Patient Comments: PT UNSURE OF STRENGTH MEROPENEM 200 mg inhaler BID Rx Instructions: TAKING A COMPOUNDED INHALATION; MEROPENEM 200MG/4ML INHALATION SYRINGE TWICE A DAY. Primary Care Provider: Mary Cobb NP Referrals: Mary Cobb COMPLEX CASE MANAGER, COMPLEX CASE MANAGER-C [Primary Care Provider] - 3-5 Days if not improving Print Language: Arabic Disposition Disposition: Home, Self Care
[2025-04-06] MEDS: Ipratropium/Albuterol Sulfate 3 ML AMPUL.NEB INHALATION (15:25)
[2025-04-06] MEDS: Albuterol 2.5 MG/3 ML VIAL.NEB. INHALATION ×3 (15:25→20:00)
[2025-04-06 15:55] LABS: Pro- Brain NATRIURETIC PEPTIDE 2830 pg/mL (<=900)
[2025-04-06 16:47] LABS: Troponin T High Sens 2 HR 23 ng/L (<=14)
[2025-04-06 18:53] LABS: Troponin T High Sens 4 HR 29 ng/L (<=14)
[2025-04-06] MEDS: MethylPREDNISolone 125 MG/2 ML Vial IV (19:09)
== END 2025-04-06 21:41 | disposition home or self-care (01) ==
PROVIDERS: Emergency Provider Emergency Medicine; PCP Nurse Practitioner Family; Visit Provider Emergency Medicine
DX: J45.901 Unspecified asthma with (acute) exacerbation (principal); I48.91 Unspecified atrial fibrillation; E78.00 Pure hypercholesterolemia, unspecified; R06.02 Shortness of breath; F32.A Depression, unspecified; Z79.899 Other long term (current) drug therapy; F41.9 Anxiety disorder, unspecified
CPT/HCPCS: 71046; 71275; 80048; 83880; 84484; 85025; 93005; 94640; 94760; 96374; 99283; Q9967; A4216

== ENCOUNTER → 2025-04-24 | Outpatient (CLI) | payer OTHER, SELFPAY ==
[2025-04-24 17:00] LABS: Absolute Lymphocyte Count 0.53 X10^3/uL (0.83-4.51); Absolute Neutrophil Count 6.1 X10^3/uL (2.0-7.7); Basophil# 0.09 X10^3/uL; Basophil% 1.1 % (0-1); Eosinophil# 0.76 X10^3/uL; Eosinophils% 9.5 % (0-5); Hematocrit 42.1 % (37-47); Hemoglobin 13.6 g/dL (12.0-15.0); Lymphocyte # 0.53 X10^3/ul (0.83-4.51); Lymphocyte % 6.6 % (19-41); Mean Corp Hgb Conc 32.3 g/dL (32-36); Mean Corpuscular Hgb 31.5 pg (27.0-32.0); Mean Corpuscular Volume 97.5 fL (81-99); Mean Platelet Vol. 11.2 fl (6.2-12.0); Monocyte# 0.58 X10^3/uL; Monocyte% 7.2 % (0-10); NRBC Flagged by Analyzer 0 % (0-5); Neutrophil # 6.05 X10^3/uL (2.7-7.7); Neutrophil % 75.4 % (47-70); POSITIVE DIFFERENTIAL YES; Platelet Count 260 K/mm3 (150-450); RBC Distribution Width SD 49.7 fl (35.1-43.9); Red Blood Count 4.32 M/mm3 (4.2-5.4)
[2025-04-24 17:21] LABS: Erythrocyte Sedimentation Rate 18 mm/hr (0-30)
[2025-04-24 17:24] LABS: Magnesium 2.4 mg/dL (1.5-2.2)
[2025-04-24 17:30] LABS: AST(SGOT) 39 U/L (<=31); Alanine Aminotransfer ALT/SGPT 34 U/L (<=34); Alkaline Phosphatase 64 U/L (35-104); Anion Gap 14 (5-15); BUN 13 mg/dL (4-19); Calcium,Total 9.6 mg/dL (7.6-11.0); Carbon Dioxide 23.1 mmol/L (21.0-32.0); Chloride 97 mmol/L (98-108); Creatinine, Serum 0.79 mg/dL (0.70-1.20); EST Glomerular Filtration Rate 86 (>60); Glucose 76 mg/dL (70-99); Potassium 4.8 mmol/L (3.3-5.1); Protein, Total 5.7 g/dL (5.9-8.4); Sodium Level 135 mmol/L (133-145); Total Bilirubin 0.63 mg/dL (0.00-1.30)
[2025-04-24 17:37] LABS: ALB/GLOB Ratio 2.7 RATIO (0.9-2.4); Albumin, Serum 4.2 g/dL (3.4-4.8); Globulin 1.6 g/dL (2.2-4.2)
[2025-04-26 10:08] LABS: CRP, High Sensitivity 8.42 mg/L (0.00-3.00)
== END | disposition home or self-care (01) ==
PROVIDERS: PCP Nurse Practitioner Family; Referring Provider Nurse Practitioner Family; Visit Provider Nurse Practitioner Family
DX: D68.69 Other thrombophilia (principal); J40 Bronchitis, not specified as acute or chronic; G60.3 Idiopathic progressive neuropathy; M62.81 Muscle weakness (generalized); A44.0 Systemic bartonellosis; R21 Rash and other nonspecific skin eruption; G89.29 Other chronic pain; M79.669 Pain in unspecified lower leg; M62.830 Muscle spasm of back; M62.831 Muscle spasm of calf
CPT/HCPCS: 80053; 83735; 85025; 85652; 86140; 86141

== ENCOUNTER → 2025-05-18 12:20 | Outpatient (REF) | payer OTHER, SELFPAY | LOC: LABSPEC 12:20 | PROVIDERS: PCP Nurse Practitioner Family; Referring Provider Nurse Practitioner Family; Visit Provider Nurse Practitioner Family | DX: D68.69 Other thrombophilia (principal); G60.3 Idiopathic progressive neuropathy; M62.81 Muscle weakness (generalized); R77.9 Abnormality of plasma protein, unspecified; D72.810 Lymphocytopenia; G89.29 Other chronic pain ==

== ENCOUNTER → 2025-05-26 | Outpatient (CLI) | payer OTHER, SELFPAY | END | disposition home or self-care (01) | PROVIDERS: PCP Nurse Practitioner Family; Referring Provider Nurse Practitioner Gerontology; Visit Provider Nurse Practitioner Gerontology | DX: I48.91 Unspecified atrial fibrillation (principal) | CPT/HCPCS: 93225; 93226 ==

== ENCOUNTER 2025-09-07 12:50 | Emergency (ER) | payer OTHER, SELFPAY ==
[2025-09-07 12:51] VITALS: BP 199/96; PULSE 89; RESP 14; TEMP 36; O2SAT 100; BMI 43.9
--- NOTE | 2025-09-07 15:23 | EX.ED.DYSGE1 ---
HPI History of Present Illness Chief Complaint: Wound Narrative Narrative: Patient is a 60-year-old female with past medical atrial fibrillation, PE no longer on Xarelto per the patient, IBS, hypercholesteremia, migraines, depression who presented to the emergency department chief complaint of wound to the right leg. States that she cut it on a cardboard box earlier today around 11 AM she states that the bleeding has stopped but she is unsure of what to do for this exactly therefore she came here to be further evaluated. Patient states that she is unsure when her last tetanus shot was. She states that she does not want one here today. [facility] Medical History Hx of pulmonary embolus Atrial fibrillation Atypical chest pain Arthralgia Frequent falls Dysphagia Anxiety Migraine Asthma Vitamin D deficiency Mitral valve prolapse Hypercholesterolemia Psoriasis IBS (irritable bowel syndrome) Diverticulitis Depression Home Medications ?Medication ?Instructions ?Recorded ?Last Taken ?Type lactobacillus combination no.8 3 3,000 mmu cells PO DAILY 03/07/21 Unknown History billion cell capsule (Adult Probiotic) multivitamin (Multiple Vitamins 1 tablet PO DAILY 03/07/21 04/05/25 History tablet) methocarbamol 500 mg tablet 500 mg PO BID PRN muscle spasm 01/21/24 Unknown History sertraline 50 mg tablet 25 mg PO DAILY 05/16/24 04/06/25 History acetaminophen 325 mg capsule 650 mg PO DAILY PRN fever or pain 04/06/25 04/06/25 History albuterol sulfate 2.5 mg/3 mL 2.5 mg inhalation BID PRN 04/06/25 04/06/25 History (0.083 %) solution for nebulization shortness of breath or wheezing albuterol sulfate 90 mcg/actuation 2 puff inhalation Q4H PRN 04/06/25 04/06/25 History aerosol inhaler shortness of breath or wheezing metoprolol succinate 50 mg 50 mg PO DAILY 04/06/25 04/06/25 History tablet,extended release 24 hr niacin PO DAILY 04/06/25 04/06/25 History soybean, fermented 50 mg capsule 50 mg PO BID 04/06/25 04/06/25 History (Nattokinase) tramadol 50 mg tablet 50 mg PO BID PRN severe pain 04/06/25 04/06/25 History rivaroxaban 20 mg tablet (Xarelto) 20 mg PO QDAY #30 tabs 05/14/25 Unknown Rx Allergy/AdvReac Type Severity Reaction Status Date / Time celecoxib (From Celebrex) Allergy Shortness Verified 09/07/25 12:51 of breath levofloxacin (From Levaquin) AdvReac Pain in Verified 09/07/25 12:51 joints Family History Mother Asthma Diabetes Heart disease Hypertension CAD (coronary artery disease) COPD (chronic obstructive pulmonary disease) Rheumatoid arthritis Sister Diabetes Heart disease Father , age 44 Sudden cardiac Myocardial infarction Surgical History s/p incision and drainage left shoulder blade abscess (~08/29/19) Detached retina S/P eye surgery S/P section Social History household members: spouse and children housing: house current occupational status: unemployed Smoking Status: Never smoker second hand exposure: Yes alcohol intake: former what type of physical activity do you participate in: none seatbelt use: always do you feel safe at home: Yes ROS ROS ED ROS Narrative Neurological: Denies any numbness, tingling Skin: Complains of cut to the right leg as noted above EXAM Physical Exam Narrative Exam Narrative: General: Patient lying in bed rest comfortably did not appear to be in acute distress Head: Atraumatic, normocephalic Eyes: PERRL bilaterally, EOMI bilateral, no conjunctival injection or Neck: Soft, supple, trachea midline Cardiovascular: Regular rate Extremities: DP pulses +2/4 in the right lower extremity, patient moving all extremities on exam Neurological: Patient following commands knew that she was at [facility] year is 2024 Skin: Patient has a skin abrasion noted to the right anterior benton and a V shaped this is more of a skin tear nothing to repair. Patient then has a proximately 4 cm laceration on the lateral aspect of her right leg. Mild oozing noted. Const Vital Signs: 09/07/25 12:51 Temperature 96.8 F L Temperature Source Temporal Pulse Rate 89 Respiratory Rate 14 Blood Pressure 199/96 H Blood Pressure Mean 130 Pulse Ox 100 Oxygen Delivery Method Room Air MDM MDM MDM Narrative Medical decision making narrative: Patient is a 60-year-old female who presents to the emergency department the chief complaint of cut to her right leg with a laceration. On the differential diagnose includes but not limited to laceration, skin abrasion. Patient states that she does not want a tetanus shot discussed the risks of this and she states that she believes she will be fine. Patient had laceration repaired here in the emergency department see procedure note for separate details. She was advised to keep a very close eye on this as this was a very difficult laceration. Given the thinness of her skin and it tearing when trying to approximate the laceration. She is advised to keep this area dry and clean. She is vies follow-up with her doctor outpatient setting and return with worsening symptoms or concerns. She is agreeable to plan all course concerns answered she was discharged home in stable condition. Procedure note Procedure name: Laceration repair Indication: Reduce risk of infection Location: Right anterior lateral leg 4 cm laceration Preprocedure diagnosis: Laceration Postprocedure diagnosis: Repaired laceration Informed consent was obtained prior to procedure started. Procedure: The appropriate timeout was taken. The area was prepped and draped in usual sterile fashion. Local anesthesia was achieved using 3-1/2 cc of lidocaine 1% without epinephrine. Wound was copiously irrigated. 2 4-0 Ethilon interrupted sutures were placed, however when attempting to place the first suture in the middle of the laceration and attempted to close the wound and it immediately ripped through her skin as her skin is very thin. I then attempted to place a subcutaneous stitch with Vicryl however this also ripped through her subcutaneous tissue. I then attempted to loosely approximate the ends of her laceration with interrupted sutures with 4-0 Ethilon and this was loosely approximated. I then took a 4-0 Vicryl and placed a subcutaneous stitch in the middle of the wound which slightly approximated the wound closer followed by a vertical mattress stitch in the center of the wound which then loosely approximated the wound further. I could not get the wound closed any farther as when attempting to do so it would just rip the skin. She was vies that she needs to keep a very close eye in this and follow-up with her doctor in outpatient setting. She is advised to return with worsening symptoms or other concerns. She is agreeable to plan all question concerns answered she was discharged home in stable condition. Estimated blood loss was less than 0.5 mL. Dressing was applied to the area and anticipatory guidance, as well as standard postprocedure care was explained. Return precautions are given. Patient Toller procedure well without any complications. Follow-up visit for suture removal and evaluation of laceration. Discharge Plan Triage Chief Complaint: Wound ED Provider: Dylan Herrera Dx/Rx/DC Orders Clinical Impression: Laceration of lower leg, right, complicated, Abrasion of leg, right, History of IBS Prescriptions: No Action multivitamin [Multiple Vitamins] Tablet 1 tablet PO DAILY Adult Probiotic 3 billion cell capsule 3,000 mmu cells PO DAILY Patient Comments: UNSURE OF STRENGTH Rx Instructions: if flare up-tid methocarbamol 500 mg tablet 500 mg PO BID PRN (Reason: muscle spasm) sertraline 50 mg tablet 25 mg PO DAILY Xarelto 20 mg tablet 20 mg PO QDAY Qty: 30 11RF Rx Instructions: must administer with evening meal metoprolol succinate 50 mg tablet extended release 24 hr 50 mg PO DAILY albuterol sulfate 2.5 mg /3 mL (0.083 %) solution for nebulization 2.5 mg inhalation BID PRN (Reason: shortness of breath or wheezing) albuterol sulfate 90 mcg/actuation HFA aerosol inhaler 2 puff INHALATION Q4H PRN (Reason: shortness of breath or wheezing) tramadol 50 mg tablet 50 mg PO BID PRN (Reason: severe pain) Patient Comments: PT ONLY TKAES ONCE A DAY IN THE MORNING Nattokinase 50 mg capsule 50 mg PO BID acetaminophen 325 mg capsule 650 mg PO DAILY PRN (Reason: fever or pain) niacin PO DAILY Patient Comments: PT UNSURE OF STRENGTH Primary Care Provider: Mary Cobb SPECIAL EDUCATION BUS DRIVER Referrals: Mary Cobb SPECIAL EDUCATION BUS DRIVER, SPECIAL EDUCATION BUS DRIVER-C [Primary Care Provider, Family Practice] Activity Restrictions/Additional Instructions: Keep the area dry and clean and keep a very close eye on this wound and watch out for signs infection such as surrounding redness or purulent drainage if this is to occur you need to call your doctor or return to the emergency department immediately. Follow-up your doctor within the next few days your sutures will need to come out in approximately 10 days. Return with worsening symptoms or any other concerns Print Language: Kosovan Disposition Disposition: Home, Self Care
[2025-09-07] MEDS: Lidocaine 1% (20 ml mdv) 20 ML Vial 10 ML INFILT (15:30)
[2025-09-07 16:49] VITALS: BP 136/81; PULSE 89; RESP 18; TEMP 36.6; O2SAT 98
== END 2025-09-07 16:55 | disposition home or self-care (01) ==
PROVIDERS: Emergency Provider Emergency Medicine; PCP Nurse Practitioner Family; Visit Provider Emergency Medicine
DX: S81.811A Laceration without foreign body, right lower leg, initial encounter (principal); I48.91 Unspecified atrial fibrillation; S80.811A Abrasion, right lower leg, initial encounter; E78.00 Pure hypercholesterolemia, unspecified; Z86.39 Personal history of other endocrine, nutritional and metabolic disease; W26.8XXA Contact with other sharp object(s), not elsewhere classified, initial encounter; F32.A Depression, unspecified; F41.9 Anxiety disorder, unspecified; Z79.899 Other long term (current) drug therapy
CPT/HCPCS: 12002; 99283

== ENCOUNTER → 2025-09-10 | Outpatient (CLI) | payer OTHER, SELFPAY | END | disposition home or self-care (01) | PROVIDERS: PCP Nurse Practitioner Family; Referring Provider Nurse Practitioner Family; Visit Provider Nurse Practitioner Family | DX: G60.3 Idiopathic progressive neuropathy (principal); M62.81 Muscle weakness (generalized); R77.9 Abnormality of plasma protein, unspecified; D72.810 Lymphocytopenia; G89.29 Other chronic pain; D68.69 Other thrombophilia ==

== ENCOUNTER 2025-11-10 17:36 | Observation (INO) | payer OTHER, SELFPAY ==
[2025-11-10] VITALS (30 sets, daily range): BP systolic 69–150; BP diastolic 55–115; PULSE 84–142; RESP 11–26; TEMP 37.6–38.2; O2SAT 83–100; BMI 44.9
--- NOTE | 2025-11-10 17:41 | ED.RN ---
CHRISTINE CHANGED DUE TO VITAL SIGNS
[2025-11-10 18:13] LABS: Hematocrit 41.4 % (37-47); Hemoglobin 13.8 g/dL (12.0-15.0); Immature Granulocytes Count 0.050 X10^3/uL (0.0-0.0); Mean Corp Hgb Conc 33.3 g/dL (32-36); Mean Corpuscular Volume 92.2 fL (81-99); Mean Platelet Vol. 9.9 fl (6.2-12.0); NRBC Flagged by Analyzer 0 % (0-5); POSITIVE DIFFERENTIAL YES; Platelet Count 248 K/mm3 (150-450); RBC Distribution Width CV 13.1 % (11.6-14.6); RBC Distribution Width SD 44.2 fl (35.1-43.9); Red Blood Count 4.49 M/mm3 (4.2-5.4); White Blood Count 13.1 K/mm3 (4.4-11.0)
[2025-11-10 18:20] LABS: Prothrombin Time (Protime)PT. 13.7 SECONDS (11.7-14.9)
[2025-11-10 18:21] LABS: Partial Thromboplast Time 26.7 Seconds (24.1-36.2)
--- NOTE | 2025-11-10 18:33 | RAD_ITS ---
PROCEDURE: CHEST PA AND LATERAL 11/10/2025 REASON FOR EXAM: FEVER TECHNIQUE: Procedure Code: RADCXR Modality: DX Procedure: CHEST PA AND LATERAL COMPARISON: 04/06/2025 FINDINGS: Lungs/Pleura: Clear. No airspace consolidation or pleural effusion. Heart/Mediastinum: Top-normal in size. No vascular congestion. Bones/Soft tissues: Mild multilevel degenerative changes of the spine. RAD/Chest PA and Lateral IMPRESSION: No acute pulmonary disease. Reading Location: [id number]
[2025-11-10 18:39] LABS: AST(SGOT) 28 U/L (<=31); Alanine Aminotransfer ALT/SGPT 19 U/L (<=34); Albumin, Serum 4.2 g/dL (3.4-4.8); Alkaline Phosphatase 76 U/L (35-104); Anion Gap 13 (5-15); BUN 15 mg/dL (4-19); BUN/Creat Ratio 19.4 RATIO (10-20); Calcium,Total 9.2 mg/dL (7.6-11.0); Carbon Dioxide 24.9 mmol/L (21.0-32.0); Chloride 99 mmol/L (98-108); Globulin 3.1 g/dL (2.2-4.2); Glucose 138 mg/dL (70-99); Potassium 4.1 mmol/L (3.3-5.1)
--- NOTE | 2025-11-10 18:55 | EDS_ITS ---
HPI History of Present Illness Chief Complaint: Abd Pain PFSH PFSH Medical History Hx of pulmonary embolus Atrial fibrillation Atypical chest pain Arthralgia Frequent falls Dysphagia Anxiety Migraine Asthma Vitamin D deficiency Mitral valve prolapse Hypercholesterolemia Psoriasis IBS (irritable bowel syndrome) Diverticulitis Depression Home Medications ?Medication ?Instructions ?Recorded ?Last Taken ?Type lactobacillus combination no.8 3 3,000 mmu cells PO DA DESMOND 03/07/21 Unknown History billion cell capsule (Adult Probiotic) multivitamin (Multiple Vitamins 1 tablet PO DAILY 02/2404/05/25 History tablet) albuterol sulfate 2.5 mg/3 mL 2.5 mg inhalation BID OH N 04/06/25 04/06/25 History (0.083 %) solution for nebulization shortness of breat h or wheezing soybean, fermented 50 mg capsule 50 mg PO BID 04/06/25 04/06/25 History (Nattokinase) tramadol 50 mg tablet 50 mg PO BID PRN severe pain 04/06/25 04/06/25 History metoprolol succinate 50 mg 50 mg PO DAILY #90 tabs Unknown Rx tablet,extended release 24 hr acetaminophen 500 mg tablet 1,000 mg PO Q6H PRN pain 1 01/11/25 Unknown History (Tylenol Extra Strength) niacin 500 mg tablet 500 mg PO DAILY 11/10/25 Unk nown History Allergy/AdvReac Type Severity Reaction Status Date / Time celecoxib (From Celebrex) Allergy Shortness Verified 11/10/25 17:36 of breath levofloxacin (From Levaquin) AdvReac Pain in Verified 11/10/25 17:36 joints Family History Mother Asthma Diabetes Heart disease Hypertension CAD (coronary artery disease) COPD (chronic obstructive pulmonary disease) Rheumatoid arthritis Sister Diabetes Heart disease Father , age 44 Sudden cardiac Myocardial infarction Surgical History s/p incision and drainage left shoulder blade abscess (~08/29/19) Detached retina S/P eye surgery S/P section Social History household members: spouse and children housing: house current occupational status: unemployed Smoking Status: Never smoker second hand exposure: Yes alcohol intake: former what type of physical activity do you participate in: none seatbelt use: always do you feel safe at home: Yes EXAM Physical Exam Const Vital Signs: 11/10/25 17:36 11/10/25 18:45 11/10/25 20:24 Temperature 100.7 F H 99.6 F H Temperature Source Oral Oral Pulse Rate 142 H 134 H Respiratory Rate 22 H 18 Blood Pressure 150/87 H 97/65 Blood Pressure Mean 108 75 Pulse Ox 100 93 Oxygen Delivery Method Room Air Room Air Room Air [facility] MDM Narrative Medical decision making narrative: HISTORY OF PRESENT ILLNESS: Chief complaint: Abdominal pain 60-year-old female history of diverticulitis, IBS, hyperlipidemia, A-fib, PE presents abdominal pain for 1-1/2 weeks. Notes the pain is worse today. Complains of nausea chills and decreased bowel movements. She also endorses a fever. Notes diffuse abdominal pain. Notes history of but otherwise no abdominal surgeries. Notes she cannot keep anything down but denies hematemesis melena or hematochezia. Last bowel movement was yesterday. REVIEW OF SYSTEMS: Pertinent positives: As per HPI Pertinent negatives: Urinary complaints, chest pain, shortness of breath or syncope PHYSICAL EXAM: Nursing triage notes reviewed, Vital signs reviewed Constitutional: please see mdm HENT: MMM Eyes: Pupils equal round and reactive to light, Extraocular muscles intact Neck: No stridor, no JVD, full neck ROM Lungs: Clear to auscultation, No wheezing or rales. No increased work of breathing, no conversational dyspnea, no accessory muscle use, no nasal flaring. No respiratory distress noted Heart: Regular rate and rhythm, No murmurs, No rubs and No gallops, 2+ distal pulses (radial, femoral, posterior tibial) in all extremities Abdomen: Soft, no elicited tenderness, rigidity, rebound or guarding, no obvious peritoneal signs, no palpable pulsatile abdominal masses, no auscultated abdominal bruit : No CVAT Extremities: No edema Neuro: No new focal neurological deficits, cranial nerves II through XII intact, 5/5 strength in all present extremities. Intact sensation to light touch in all present extremities, 2+ reflexes bilateral patella tendons. Skin: No rash or lesions noted MEDICAL DECISION MAKING: Chief Complaint: please see [facility] External records reviewed: Reviewed prior imaging studies: Reviewed CT scan abdomen pelvis from 2020 which showed diverticulosis Factors affecting care: As per HPI Social determinants of health: Denies illicit drug use History obtained from others: Family member Consults: none [] [facility] Narrative: The patient was initially tachycardic with heart rate 142, tachypneic with a respirate of 22, febrile with a temperature of 100.7. She was maintaining her blood pressure at 150/87 and she was saturating 100% room air. Initial abdominal exam [] I considered the following differential diagnosis: AAA, small bowel obstruction, abdominal perforation, appendicitis, pancreatitis, hepatobiliary pathology (acute cholecystitis), mesenteric ischemia, pathology (ie nephrolithiasis, pyelonephritis). Nursing protocol orders, sepsis order set placed per nursing. Including IV flui ds lactate and cultures. I added a CT scan abdomen pelvis, antipyretics (Tylenol, Toradol), to further determine if the patient was suffering from a life-threatening etiology. ALL IMAGES (IF OBTAINED) HAVE BEEN PERSONALLY REVIEWED AND INTERPRETED BY MYSELF. Lactate is wnl indicating no end-organ hypoperfusion and/or hypoxia. CBC with leukocytosis suggestive of systemic inflammation, no anemia or thrombocytopenia No coagulopathy CMP without evidence of acute kidney injury, significant electrolyte abnormality, anion gap to suggest end organ hypo-perfusion, no evidence of metabolic acidosis with a normal bicarbonate, no evidence of hepatobiliary obstructive pathology. I have personally reviewed the patient's chest x-ray. Chest x-ray is unremarkable for pulmonary edema, pneumothorax, pneumonia or focal cardiopulmonary abnormality. CT scan revealed no acute surgical abdominal pathology Of note with the patient ED course he continued to be tachycardic. I ordered EKG to further assess as well as an x-ray. EKG showed A-fib with RVR with a normal axis and normal intervals and no STEMI. Chest x-ray showed evidence of CHF. I signed the patient's A-fib with IV metoprolol, IV fluids. The patient and/or family, caregivers express understanding. The patient and/or family, caregivers agrees with the plan. Shared decision making: I will have a discussion with the patient and or visitors regarding risk/benefits of further testing or admission. They will be made aware of of the risk/benefits inherent in this decision they will be given the opportunity to voice understanding. Total critical care time today provided was at least 0 [] minutes. This excludes separately billable procedures. Critical care time (if documented) is secondary to the patient having high probability of clinically significant/life threatening deterioration in the patient's condition which required my urgent intervention. Impression: 1. [] 2. [] [] Dispo: [] This note was generated with [employer] dictation software. It may contain incorrect words, spelling, and punctuation that were not noted in review of the chart prior to signing. Lab Data Labs: Laboratory Results - last 24 hr 11/10/25 18:00 WBC 13.1 H RBC 4.49 Hgb 13.8 Hct 41.4 MCV 92.2 MCH 30.7 MCHC 33.3 RDW Std Deviation 44.2 H RDW Coeff of Merlyn 13.1 Plt Count 248 MPV 9.9 Immature Gran % (Auto) 0.400 Neut % (Auto) 93.8 H Lymph % (Auto) 1.7 L [place] % (Auto) 3.1 Eos % (Auto) 0.5 Baso % (Auto) 0.5 Absolute Neuts (auto) 12.3 H Absolute Lymphs (auto) 0.22 L Nucleated RBC % 0 PT 13.7 INR 1.0 APTT 26.7 Sodium 137 Potassium 4.1 Chloride 99 Carbon Dioxide 24.9 Anion Gap 13 BUN 15 Creatinine 0.75 Est GFR (MDRD) Non-Af 90 BUN/Creatinine Ratio 19.4 Glucose 138 H Lactic Acid < 1.0 Calcium 9.2 Total Bilirubin 0.58 AST 28 ALT 19 Alkaline Phosphatase 76 Total Protein 7.3 Albumin 4.2 Globulin 3.1 Albumin/Globulin Ratio 1.3 Radiography Diagnostic Testing: Clinical Impression(s) from Imaging Studies Chest X-Ray 11/10/25 18:33 IMPRESSION: No acute pulmonary disease. Reading Location: [facility] Abdomen/Pelvis CT 11/10/25 19:02 IMPRESSION: 1. Colonic diverticulosis without signs of diverticulitis. 2. Interval enlargement of the fat containing umbilical hernia. Reading Location: [facility] [facility] [place] Dis[place] Plan Triage Chief Complaint: Abd Pain ED Provider: Hector Morrell Dx/Rx/DC Orders Prescriptions: No Action multivitamin [Multiple Vitamins] Tablet 1 tablet PO DAILY Adult Probiotic 3 billion cell capsule 3,000 mmu cells PO DAILY Patient Comments: UNSURE OF STRENGTH Rx Instructions: if flare up-tid metoprolol succinate 50 mg tablet extended release 24 hr 50 mg PO DAILY Qty: 90 3RF albuterol sulfate 2.5 mg /3 mL (0.083 %) solution for nebulization 2.5 mg inhalation BID PRN (Reason: shortness of breath or wheezing) tramadol 50 mg tablet 50 mg PO BID PRN (Reason: severe pain) Patient Comments: PT ONLY TKAES ONCE A DAY IN THE MORNING Nattokinase 50 mg capsule 50 mg PO BID acetaminophen [Tylenol Extra Strength] 500 mg tablet 1,000 mg PO Q6H PRN (Reason: pain) niacin 500 mg tablet 500 mg PO DAILY Primary Care Provider: Mary Cobb NP Referrals: Mary Cobb [facility], [facility] [Primary Care Provider, Family Practice] Print Language: Estonian
--- NOTE | 2025-11-10 19:02 | CT_ITS ---
PROCEDURE: ABDOMEN/PELVIS W IV CONT ONLY 11/10/2025 REASON FOR EXAM: ABDOMINAL PAIN, ACUTE, NONLOCALIZED TECHNIQUE: Procedure Code: [id number] Modality: CT Procedure: ABDOMEN/PELVIS W IV CONT ONLY Coronal and Sagittal reconstruction series were provided. CONTRAST: Isovue 370 VOLUME: 95 mL One or more dose reduction techniques were used (e.g., Automated exposure control, adjustment of the mA and/or kV according to patient size, use of iterative reconstruction technique. RADIATION DOSE SUMMARY: CTDlvol: 9.97, 24.05 mGy DLP: 1191 mGycm COMPARISON: 03/01/2021 FINDINGS: LUNG BASES: No basilar airspace consolidation or pleural effusion. Minimal right middle lobe and lingula atelectasis/scarring. Calcified aortic valve. LIVER: Unremarkable. GALLBLADDER: Unremarkable. No calcified stone. BILE DUCTS: No ductal dilation. PANCREAS: Unremarkable. SPLEEN: Unremarkable. ADRENAL GLANDS: Unremarkable. KIDNEYS: The kidneys enhance symmetrically. Hypodense renal lesions again seen bilaterally, the largest is 2.1 cm, likely cysts. No hydronephrosis or hydroureter. STOMACH AND BOWEL: Small hiatal hernia. No obstruction or perforation. No wall thickening. Colonic diverticulosis. No CT evidence of colitis or acute diverticulitis. APPENDIX: Normal-appearing appendix. No CT evidence for appendicitis. RETRO/PERITONEUM: No free fluid. No free air. LYMPH NODES: No lymphadenopathy. PELVIC ORGANS: Unremarkable as visualized. VASCULATURE: No aortic aneurysm. Scattered calcified atherosclerosis. ABDOMINAL WALL AND SOFT TISSUES: Interval enlargement of the now moderate-size fat containing umbilical hernia. Small fat-containing right inguinal hernia. Diastasis recti present. BONES: No fracture or suspicious osseous abnormality. 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 Associated L5-S1 neural foraminal stenosis bilaterally. CT/Abdomen/Pelvis W IV Cont ONLY IMPRESSION: 1. Colonic diverticulosis without signs of diverticulitis. 2. Interval enlargement of the fat containing umbilical hernia. Reading Location: [facility] [place]
[2025-11-10] MEDS: 0.9% Normal Saline (1000mL) 1,000 ML 1000 ML IV (19:15)
[2025-11-10] MEDS: Ketorolac 30 MG/ML Syringe 15 MG IV (19:15)
--- NOTE | 2025-11-10 20:28 | EKG12_ITS ---
Test Reason : DYSRHYTHMIA Blood Pressure : */* mmHG Vent. Rate : 127 BPM Atrial Rate : * BPM P-R Int : * ms QRS Dur : 76 ms QT Int : 280 ms P-R-T Axes : * 17 57 degrees QTcB Int : 406 ms Atrial fibrillation with rapid ventricular response Abnormal ECG Confirmed by Winston Amos ([id number]), features editor LORENZO LOPEZ ([id number]) on 11/11/2025 10:27:08 AM Referred By: Confirmed By: Winston Amos
[2025-11-10] MEDS: 0.9% Normal Saline (500mL Bag) 500 ML 999 ML IV (21:20)
[2025-11-10 22:16] LABS: Mucous, Urine 0 SEEN /hpf (<or=2+); Red Blood Cells-Urine 0 SEEN /hpf (0-5); Squamous Epithelial Cells - UA 0 SEEN /hpf (5-10)
[2025-11-10 22:37] LABS: Color, Urine Yellow (Yellow); Glucose, Dipstick Normal (Normal); Ketone-Dipstick Negative (Negative); Leukocyte Esterase-Dipstick Negative /ul (Negative); Nitrite-Dipstick Negative (Negative); Occult Blood-Urine 25 /ul (Negative); Protein-Dipstick 30 mg/dl (Negative); Specific Gravity, Urine 1.010 (1.002-1.030); Urine Bilirubin Dipstick Negative (Negative)
--- NOTE | 2025-11-10 22:44 | CT_ITS ---
PROCEDURE: CTA CHEST W/WO CONTRAST 11/10/2025 REASON FOR EXAM: SOB, TACHYCARDIA, HYPOXIA R/O PE TECHNIQUE: Procedure Code: [id number] Modality: CT Procedure: CTA CHEST W/WO CONTRAST Multiplanar Sagittal and Coronal images were obtained. CONTRAST: Isovue 370 VOLUME: 100 mL One or more dose reduction techniques were used (e.g., Automated exposure control, adjustment of the mA and/or kV according to patient size, use of iterative reconstruction technique). RADIATION DOSE SUMMARY: CTDlvol: 28.5 mGy DLP: 564.79 mGycm COMPARISON: 04.06.2025 FINDINGS: Patent pulmonary artery and its main branches without sizable filling defects. No suspicious-appearing soft tissue pulmonary nodule or mass. There is no focal infiltrate or consolidation. Redemonstration of the bilateral pulmonary mosaic attenuation likely representing small airway disease, recommend clinical correlation. There are no pleural effusions. No pneumothorax is seen. No mediastinal or hilar adenopathy is identified. The thyroid is unremarkable. The central airways are patent. The chest wall appears unremarkable. No axillary adenopathy is identified. The thoracic aorta demonstrates mild atheromatous calcification. The heart is not enlarged. There are no appreciable coronary artery calcifications. No pericardial effusion is identified. No aggressive-appearing osseous lesions are identified. Mild degenerative changes are present in the spine. The included abdominal cuts show small left renal simple cortical cyst. CT/CTA Chest W/WO Contrast IMPRESSION: No evidence of acute arterial pulmonary thromboembolism. Redemonstration of the bilateral pulmonary mosaic attenuation likely representi ng small airway disease, recommend clinical correlation. Reading [facility] [id number]
[2025-11-11] VITALS (14 sets, daily range): BP systolic 106–141; BP diastolic 60–103; PULSE 80–109; RESP 14–23; TEMP 36.3–37.2; O2SAT 87–100; BMI 44.0
--- OUTSIDE RECORDS SUMMARY | 2025-11-11 00:26 | XMS RPT_ITS | CCD ---
Author Organization [facility] ion [facility] Care Team Providers Care Division Manager Name Role Phone Domi Handley Unavailable Dg Wylie Unavailable Rigoberto Wiggins Unavailable [phone] Denise Vilchis Unavailable Huber De Los Santos Unavailable Unavailable Fabian Nay Unavailable Zahra Head Unavailable Unavailable Shannon Cordova Unavailable Unavailable Zahra Renner Unavailable Unavailable Unavailable Unavailable Rigoberto Wigigns Unavailable Dmoi Handley DO Unavailable Dg Wylie Unavailable Rigoberto Wiggins MD Unavailable Denise Vilchis Unavailable Huber De Los Santos LPN Unavailable Unavailable Ciesa JYOTI, Nay Unavailable Shannon Cordova LPN Unavailable Unavailable Zahra Head RN Unavailable Unavailable Unavailable Unavailable Domi Handley DO Unavailable Ciesa, Arleth Unavailable Teresa DE LA CRUZ, Soheila Unavailable Unavailable Domi Handley DO Attending Unavailable Aundrea Hurt MD Referring Unavailable Domi Handley DO Consulting Unavailable Domi Handley DO Primary Care Provider MARQUES PAUL Referring Unavailable DOMI HANDLEY Primary Care Unavailab DOMI Harper Primary Care Unavailab MARQUES Rogers Attending Unavailable MARQUES PAUL Referring Unavailable DOMI HANDLEY Primary Care Unavailab GERSON Bob DO Attending Unavailable GERSON HARLEY DO Primary Care Unavailable GERSON HARLEY DO Admitting Unavailable Michener CORE JAVA ENGINEER-C, Mary K Primary Care Provider Un available Michener CORE JAVA ENGINEER-C, Mary K Attending Provider Unava ilable Billyener CORE JAVA ENGINEER-C, Mary K Referring Provider Unava ilable Zachariah EVERETT, Dr. Escobar Emergency Provider Zachariah EVERETT, Dr. Escobar Attending Provider Zurdo CORE JAVA ENGINEER-C, Zahra Attending Provider Zurdo CORE JAVA ENGINEER-C, Zahra Referring Provider Reza CORE JAVA ENGINEER-C, Mary Page Primary Care Physician U navailjacky Renner CORE JAVA ENGINEER-C, Zahra Attending Physician Armen EVERETT, Dr. Gant Attending Physician Javier SHANNON, Dr. Richardson Attending Physician Dr. Dylan Herrera DO Emergency Department Physic óscar Billyener CORE JAVA ENGINEER-C, Mary K Attending Physician Unav ailable Billyener CORE JAVA ENGINEER-C, Mary K Referring Provider Unava ilable Reza CORE JAVA ENGINEER, Mary K Primary Care UnavailStalin Prado Attending Unavailable Zahra Renner NP Referring Unavailable Reza CORE JAVA ENGINEER, Mary Page Referring Unavailabl e Reza CORE JAVA ENGINEER, Mary K Primary Care Unavailabl e Zahra Renner NP Attending Unavailable Reza SOMERS, Mary Page Primary Care Unavailabl e Dick Ruiz NP Attending Unavailable Reza CORE JAVA ENGINEER, Mary Page Referring Unavailabl e Michener CORE JAVA ENGINEER, Mary K Primary Care Unavailabl e Michener CORE JAVA ENGINEER, Mary K Attending Unavailabl e Michener CORE JAVA ENGINEER, Mary K Referring Unavailabl e Michener CORE JAVA ENGINEER, Mary K Primary Care Unavailabl e Billyener CORE JAVA ENGINEER, Mary Page Attending Unavailabl e Billyener CORE JAVA ENGINEER, Mary K Referring Unavailabl e Michener CORE JAVA ENGINEER, Mary K Attending Unavailabl e Billyener CORE JAVA ENGINEER, Mary K Referring Unavailabl e Billyener CORE JAVA ENGINEER, Mary K Primary Care Unavailabl e Zahra Renner NP Attending Unavailable Zahra Renner NP Referring Unavailable Reza CORE JAVA ENGINEER, Mary Page Primary Care Unavailabl e Reza CORE JAVA ENGINEER, Mary Page Primary Care Unavailabl e Dylan Herrera Attending Shawn Farnsworth Attending Unavailable Reza CORE JAVA ENGINEER, Mary Page Primary Care Unavailabl e Reza CORE JAVA ENGINEER, Mary Page Primary Care Unavailabl e Reza CORE JAVA ENGINEER, Mary Page Attending Unavailabl e Reza CORE JAVA ENGINEER, Mary Page Referring Unavailabl e Reza CORE JAVA ENGINEER, Mary Page Primary Care Unavailabl e Reza CORE JAVA ENGINEER, Mary Kaylee Attending Unavailabl e Reza CORE JAVA ENGINEER, Mary Kaylee Referring Unavailabl e Reza CORE JAVA ENGINEER, Mary K Primary Care Unavailabl e Reza CORE JAVA ENGINEER, Mary Page Attending Unavailabl e Reza CORE JAVA ENGINEER, Mary Page Referring Unavailabl e Reza CORE JAVA ENGINEER, Mary K Primary Care Unavailabl e Zurdo CORE JAVA ENGINEER, Zahra Attending Unavailable Reza CORE JAVA ENGINEER, Mary Kaylee Referring Unavailabl e Allergies Allergy Classification Reported Allergen(s) Allergy Type Date of Onset Reaction(s) Facility Acetaminophen / traMADol (3 sources) Acetaminophen / traMADol; Translations: [Tramadol-Acetami nophen *ANALGESICS - OPIOID*] Drug Allergy [facility] Work Phone: Comment on above: Doesnt like the way it makes her feel NSAIDs (3 sources) celecoxib Drug Allergy [facility] Work Phone: Comment on above: Wheezing, Shortness of breath Quinolones (antibiotic) (3 sources) levoFLOXacin; Translations: [Levaquin *FLUOROQUINOLONES *] Drug Allergy [facility]; [facility] Work Phone: Comment on above: body aches (13 sources) Acetaminophen / traMADol; Translations: [Tramadol-Acetami nophen *ANALGESICS - OPIOID*] Drug Allergy [facility] Work Phone: Comment on above: Doesnt like the way it makes her feel (14 sources) celecoxib; Translations: [CELEBREX] Drug Allergy [facility] Work Phone: Comment on above: Wheezing, Shortness of breath (20 sources) levoFLOXacin; Translations: [Levaquin *FLUOROQUINOLONES *] Drug Allergy 1 Pain in joints [facility] Work Phone: Comment on above: body aches (18 sources) celecoxib; Translations: [CELECOXIB] Drug Allergy 8 Shortness of Breath [facility] Work Phone: (8 sources) Lactase; Translations: [LACTASE] Drug Allergy 6 [facility] Work Phone: (1 source) celecoxib Drug Allergy [address] [facility] (1 source) levoFLOXacin Drug Allergy [address] [facility] Medications Current Medications Medication Drug Class(es) Dates Sig (Normalized) Sig (Original) acetaminophen 325 mg oral capsule (10 sources) Start: 05-16-2024 End: 04-06-2025 take 2 capsules by mouth once daily as needed for pain Acetaminophen 325 mg capsule Active 650 mg PO DAILY as needed for fever or pain April 06, 2025 12:00am Complies with drug therapy albuterol 0.83 mg/ml inhalation solution (20 sources) beta2-Adrenergic Agonist Start: 04-06-2025 take 2.5 mg by inhalation twice daily as needed for wheezing Albuterol Sulfate 2.5 mg /3 mL (0.083 %) solution for nebulization Active 2.5 mg INHALATION TWICE A DAY as needed for shortness of breath or wheezing April 06, 2025 12:00am Complies with drug therapy Start: 04-06-2025 Albuterol Sulf ate 90 mcg/actuation HFA aerosol inhaler Active 2 NMA INHALATION Q4H as needed for shortness of breath or wheezing April 06, 2025 12:00am Complies with drug therapy Start: 01-21-2024 End: 05-16-2024 Albuterol Sulfate (Proair Hf a) 90 mcg/actuation HFA aerosol inhaler Discontinued 2 NMA INHALATION EVERY 4-6 HOURS as needed January 21, 2024 1:00am May 16, 2024 11:40am Start: 05-17-2020 take 2 puff(s) by in halation three times daily as needed ProAir HFA 108 (90 Base) MCG/ACT Inhalation Aerosol Solution 2 (two) Puff(s) tid prn for 0 days Quantity: 1 {Inhaler} Refills: 0 Ordered: 17-May-2020 Arleth Peralta Start : 17-May-2020 Active Start: 05-17-2020 take 2 puff(s) by in halation three times daily as needed ProAir HFA 108 (90 Base) MCG/ACT Inhalation Aerosol Solution 2 (two) Puff(s) tid prn for 0 days Quantity: 1 {Inhaler} Refills: 0 Ordered: 17-May-2020 Arleth Peralta CNP Start : 17-May-2020 Active Start: 04-13-2017 End: 05-21-2018 ProAir HFA 108 (90 Base) MCG /ACT Inhalation Aerosol Solution 2 (two) Aerosol Soln q 6 hr prn for 0 days Quantity: 1 {Inhaler} Refills: 0 Ordered: 21-May-2018 Slarb CORRECTIONAL SUPERVISOR, Shannon Start : 13-Apr-2017 End : 21-May-2018 Inactive Start: 04-13-2017 End: 05-21-2018 ProAir HFA 108 (90 Base) MCG /ACT Inhalation Aerosol Solution 2 (two) Aerosol Soln q 6 hr prn for 0 days Quantity: 1 {Inhaler} Refills: 0 Ordered: 21-May-2018 Tasha VELAZQUEZ, Shannon Start : 13-Apr-2017 End : 21-May-2018 Inactive End: 10-28-2010 take 1-2 puff(s) by inhalation every six hours as needed for wheezing ALBUTEROL SULFATE HFA, 108MCG/ACT (Inhalation Aerosol Soln) 1-2 puffs q 6 hours prn wheezing for 0 days Refills: 0 Ordered: 28-Oct-2010 Zahra Head RN End : 28-Oct-2010 Discontinued Comments: This order discontinued per [facility]. End: 10-28-2010 take 1-2 puff(s) by inhalation every six hours as needed for wheezing ALBUTEROL SULFATE HFA, 108MCG/ACT (Inhalation Aerosol Soln) 1-2 puffs q 6 hours prn wheezing for 0 days Refills: 0 Ordered: 28-Oct-2010 Zahra Head RN End : 28-Oct-2010 Discontinued Comments: This order discontinued per [facility]. Comment on above: This order discontin ued per [facility]. amoxicillin 500 mg oral tablet (1 source) Penicillin-class Antibacterial Start: take 1 tablet by mouth twice daily Amoxicillin 500 mg tablet Active 500 mg PO TWICE A DAY September 21, 2025 12:00am Complies with drug therapy Start: 09-21-2025 take 1 tablet by kodi th twice daily Amoxicillin 500 mg tablet Active 500 mg PO TWICE A DAY September 21, 2025 12:00am Complies with drug therapy Lactobacillus Combination No.8 (Adult Probiotic) 3 billion cell capsule (10 sources) Start: 03-07-2021 take 3 capsules by mouth once daily Lactobacillus Combination No.8 (Adult Probiotic) 3 billion cell capsule Active 3000 NMA PO DAILY March 07, 2021 12:00am if flare up-tid Complies with drug therapy Start: 03-07-2021 take 3 capsules by m outh once daily Lactobacillus Combination No.8 (Adult Probiotic) 3 billion cell capsule Active 3000 NMA PO DAILY March 07, 2021 12:00am if flare up-tid Start: 03-07-2021 take 3 capsules by m outh once daily Lactobacillus Combination No.8 (Adult Probiotic) 3 billion cell capsule Active 3000 MMU CELLS PO DAILY March 06, 2021 11:00pm if flare up-tid Start: 03-07-2021 take 3 capsules by m outh once daily Lactobacillus Combination No.8 (Adult Probiotic) 3 billion cell capsule Active 3000 MMU CELLS PO DAILY March 07, 2021 12:00am if flare up-tid methocarbamol 500 mg oral tablet (12 sources) Muscle Relaxant Start: 01-21-2024 End: 09-21-2025 take 1 tablet by mouth twice daily as needed for muscle spasms Methocarbamol 500 mg tablet Discontinued 500 mg PO TWICE A DAY as needed for muscle spasm January 21, 2024 1:00am September 21, 2025 2:35pm Start: 12-24-2022 take 0.5 tablet by m outh twice daily as needed for pain methocarbamol (ROBAXIN) 500 mg tablet TAKE 1/2 TABLET BY MOUTH TWICE DAILY NEEDED FOR PAIN 0 12/24/2022 Active Comment on above: TAKE 1/2 TABLET BY M OUTH TWICE DAILY NEEDED FOR PAIN 24 hr metoprolol succinate 50 mg extended release oral tablet (20 sources) beta-Adrenergic Nathaly Start: 09-21-2025 take 1 tablet by mouth once daily Metoprolol Succinate 50 mg tablet extended release 24 hr Active 50 mg PO DAILY September 21, 2025 2:48pm Complies with drug therapy Start: 04-06-2025 End: 09-21-2025 take 1 tablet by mouth once daily Metoprolol Succinate 50 mg tablet extended release 24 hr Discontinued 50 mg PO DAILY April 06, 2025 12:00am September 21, 2025 2:48pm Start: 02-13-2024 End: 04-06-2025 take 1 tablet by mouth twice daily Metoprolol Tartrate 50 mg tablet Discontinued 50 mg PO TWICE A DAY November 05, 2024 4:03pm April 06, 2025 6:09pm Start: 01-21-2024 End: 02-13-2024 take 1 tablet by mouth twice daily Metoprolol Tartrate 25 mg tablet Discontinued 25 mg PO TWICE A DAY January 21, 2024 1:00am February 13, 2024 2:33pm Multivitamin (Multiple Vitam ins) tablet (10 sources) Start: 03-07-2021 Multivitamin ( Multiple Vitamins) tablet Active 1 {tbl} PO DAILY March 07, 2021 12:00am Complies with drug therapy Start: 03-07-2021 Multivitamin ( Multiple Vitamins) tablet Active 1 {tbl} PO DAILY March 07, 2021 12:00am Start: 03-07-2021 take 1 tablet by kodi th twice daily Multivitamin (Multiple Vitamins) tablet Active 1 TABLET PO TWICE A DAY March 06, 2021 11:00pm Start: 03-07-2021 take 1 tablet by kodi th twice daily Multivitamin (Multiple Vitamins) tablet Active 1 TABLET PO TWICE A DAY March 07, 2021 12:00am Niacin (5 sources) Nicotinic Acid Start: 04-06-2025 niacin Active PO DAILY April 06, 2025 12:00am Complies with drug therapy Start: 04-06-2025 niacin Active PO DAILY April 06, 2025 12:00am rivaroxaban 20 mg oral tablet (3 sources) Factor Xa Inhibitor Start: 05-14-2025 End: 09-21-2025 take 1 tablet by mouth once daily at dinner Rivaroxaban (Xarelto) 20 mg tablet Discontinued 20 mg PO daily 25 10May 14, 2025 12:00am September 21, 2025 2:34pm must administer with evening meal sertraline 50 mg oral tablet (20 sources) Serotonin Reuptake Inhibitor Start: 05-16-2024 End: 09-21-2025 Sertraline 50 mg tablet Discontinued 25 mg PO DAILY May 16, 2024 12:00am September 21, 2025 2:34pm Start: 01-02-2023 take 1 tablet by kodi th once daily Zoloft 50 mg oral tablet 1 (one) Tablet qd for 0 days Quantity: 90 {Tablet} Refills: 3 Ordered: 02-Jan-2023 Tawanda SHANNON Domirichard Handley DO Domi Start : 02-Jan-2023 Active Start: 12-25-2022 take 1 tablet by kodi th once daily Zoloft 50 mg oral tablet tad Tablet qd for 0 days Quantity: 90 {Tablet} Refills: 3 Ordered: 25-Dec-2022 Tawanda Domi Tawanda Hilda SHANNONeen Start : 25-Dec-2022 Active Start: 01-21-2021 End: 02-13-2024 take 1 tablet by mouth once daily Sertraline (Zoloft) 50 mg tablet Discontinued 50 mg PO DAILY March 07, 2021 12:00am February 13, 2024 2:33pm Start: 08-29-2019 End: 03-07-2021 take 1 tablet by mouth once daily Sertraline (Zoloft) 25 mg tablet Discontinued 25 mg PO DAILY August 29, 2019 12:00am March 07, 2021 12:56pm Start: 10-31-2016 End: 08-29-2019 take 1 tablet by mouth once daily Sertraline 50 MG tablet Discontinued 50 mg PO DAILY October 31, 2016 1:00am August 29, 2019 10:42am Comment on above: Take 50 mg by mouth once daily. Soybean, Fermented (Nattokinase) 50 mg capsule (5 sources) Start: 04-06-2025 take 1 capsule by mouth twice daily Soybean, Fermented (Nattokinase) 50 mg capsule Active 50 mg PO TWICE A DAY April 06, 2025 12:00am Complies with drug therapy Start: 04-06-2025 take 1 capsule by mo uth twice daily Soybean, Fermented (Nattokinase) 50 mg capsule Active 50 mg PO TWICE A DAY April 06, 2025 12:00am traMADol hydrochloride 50 mg oral tablet (20 sources) Opioid Agonist Start: 04-06-2025 take 1 tablet by mouth twice daily as needed for pain Tramadol 50 mg tablet Active 50 mg PO TWICE A DAY as needed for severe pain April 06, 2025 12:00am Complies with drug therapy Start: 05-24-2012 End: 08-25-2015 take 1 tablet by mouth every six hours as needed ULTRAM, 50MG (Oral Tablet) 1 Tablet every 6 hours prn for 0 days Quantity: 30 {Tablet} Refills: 0 Ordered: 25-Aug-2015 Shannon Cordova LPN Start : 24-May-2012 End : 25-Aug-2015 Discontinued Comments: thirty Comment on above: thirty Completed/Discontinued Medications Medication Drug Class(es) Dates Sig (Normalized) Sig (Original) ALBUTEROL SULFATE HFA, 108MCG/ACT (Inhalation Aerosol Soln) (3 sources) End: 10-28-2010 take 1-2 puff(s) by inhalation every six hours as needed for wheezing ALBUTEROL SULFATE HFA, 108MCG/ACT (Inhalation Aerosol Soln) 1-2 puffs q 6 hours prn wheezing for 0 days Refills: 0 Ordered: 28-Oct-2010 Zahra Head RN End : 28-Oct-2010 Discontinued Comments: This order discontinued per [facility]. Comment on above: This order discontin ued per [facility]. ALPRAZolam 0.5 mg oral tablet (16 sources) Benzodiazepine Start: 03-03-2016 End: 05-21-2018 take 1 tablet by mouth twice daily as needed Xanax 0.5 MG Oral Tablet 1 (one) Tablet Tablet bid prn for 0 days Quantity: 30 {Tablet} Refills: 0 Ordered: 21-May-2018 Shannon Cordova LPN Start : 03-Mar-2016 End : 21-May-2018 Inactive Comments: thirty Comment on above: thirty amoxicillin 500 mg / clavulanate 125 mg oral tablet (16 sources) Penicillin-class Antibacterial Start: 03-06-2014 End: 03-16-2014 take 1 tablet by mouth twice daily AUGMENTIN, 500-125MG (Oral Tablet) 1 (one) Tablet bid for 10 days Quantity: 20 {Tablet} Refills: 0 Ordered: 06-Mar-2014 Arleth Peralta Start : 06-Mar-2014 End : 16-Mar-2014 Inactive apixaban 5 mg oral tablet (20 sources) Factor Xa Inhibitor Start: 01-21-2024 End: 04-06-2025 take 1 tablet by mouth twice daily Apixaban (Eliquis) 5 mg tablet Discontinued 5 mg PO TWICE A DAY 180 3 November 05, 2024 4:03pm April 06, 2025 6:07pm betamethasone 0.25 mg/ml topical cream (16 sources) Corticosteroid BETAMETHASONE BENZOATE, 0.025% (External Cream) apply bid to affected areas prn (0.025 %) Inactive betamethasone 0.5 mg/ml / clotrimazole 10 mg/ml topical cream (16 sources) Azole Antifungal, Corticosteroid Start: 10-28-2010 End: 11-14-2010 LOTRISONE, 1-0.05% (External Cream) apply to affected area Cream bid for 0 days Quantity: 45 {Cream} Refills: 0 Ordered: 14-Nov-2010 KENNETH Paul LPN Start : 28-Oct-2010 End : 14-Nov-2010 Inactive cefdinir 300 mg oral capsule (16 sources) Cephalosporin Antibacterial Start: 10-26-2016 End: 11-02-2016 take 1 capsule by mouth twice daily Cefdinir 300 MG Oral Capsule 1 (one) Capsule bid for 7 days Quantity: 14 {Capsule} Refills: 0 Ordered: 26-Oct-2016 Domi Handley DO, DO, Kathleen Start : 26-Oct-2016 End : 02-Nov-2016 Inactive cetirizine hydrochloride 10 mg oral capsule (16 sources) Histamine-1 Receptor Antagonist Start: 04-02-2013 End: 08-25-2015 take 1 capsule by mouth once daily ZYRTEC ALLERGY, 10MG (Oral Capsule) 1 Capsule daily for 0 days Quantity: 30 {Capsule} Refills: 0 Ordered: 25-Aug-2015 Shannon Cordova LPN Start : 02-Apr-2013 End : 25-Aug-2015 Discontinued desonide 0.5 mg/ml topical cream (16 sources) Corticosteroid Start: 01-17-2012 End: 02-05-2012 DESONIDE, 0.05% (External Cream) 1 Cream bid or Tid for 0 days Quantity: 1 {Cream} Refills: 2 Ordered: 05-Feb-2012 Ying Richardson LPN Start : 17-Jan-2012 End : 05-Feb-2012 Inactive 24 hr dilTIAZem hydrochloride 120 mg extended release oral capsule (5 sources) Calcium Channel Nathaly Start: 01-21-2024 End: 02-13-2024 take 1 capsule by mouth once daily Diltiazem Hcl 120 mg capsule,extended release 24hr Discontinued 120 mg PO DAILY January 21, 2024 1:00am February 13, 2024 2:32pm ergocalciferol 1.25 mg oral capsule (16 sources) Provitamin D2 Compound Start: 02-05-2012 End: 04-12-2012 take 1 capsule by mouth two times weekly ERGOCALCIFEROL, [id number] (Oral Capsule) 1 Capsule twice weekly for 0 days Quantity: 24 {Capsule} Refills: 0 Ordered: 05-Feb-2012 Mast Kirti DURAN Start : 05-Feb-2012 End : 12-Apr-2012 Discontinued fluconazole 150 mg oral tablet (16 sources) Azole Antifungal Start: 09-05-2016 End: 10-05-2016 take 1 tablet by mouth every other day Diflucan 150 MG Oral Tablet 1 Tablet Tablet qod x 4 for 0 days Quantity: 4 {Tablet} Refills: 0 Ordered: 05-Oct-2016 Zahra Head RN Start : 05-Sep-2016 End : 05-Oct-2016 Inactive fluocinolone acetonide 0.1 mg/ml topical oil (16 sources) Corticosteroid Start: 01-09-2014 End: 03-27-2017 [place]-Smoothe/FS Body 0.01 % External Oil apply liberally liberally all over body and affected areas for 0 days Quantity: 4 {Ounce} Refills: 2 Ordered: 27-Mar-2017 Shannon Cordova LPN Start : 09-Jan-2014 End : 27-Mar-2017 Discontinued 60 actuat fluticasone propionate 0.23 mg/actuat / salmeterol 0.021 mg/actuat metered dose inhaler (20 sources) Corticosteroid, beta2-Adrenergic Agonist Start: 04-30-2013 End: 12-03-2013 ADVAIR HFA, 230-21MCG/ACT (Inhalation Aerosol) 1 1/2 (one and a half) Puff(s) q12hr for 0 days Quantity: 1 {Aerosol} Refills: 0 Ordered: 03-Dec-2013 Soheila Moore CMA Start : 30-Apr-2013 End : 03-Dec-2013 Inactive Start: 04-30-2013 End: 12-03-2013 ADVAIR HFA, 230-21MCG/ACT (I nhalation Aerosol) 1 1/2 (one and a half) Puff(s) q12hr for 0 days Quantity: 1 {Aerosol} Refills: 0 Ordered: 03-Dec-2013 Soheila Moore CMA Start : 30-Apr-2013 End : 03-Dec-2013 Inactive Start: 10-03-2006 End: 02-11-2007 ADVAIR DISKUS, 100-50MCG/DOS E (Inhalation Miscellaneous) 1 (one) Misc BID for 0 days Quantity: 1 {Misc} Refills: 0 Ordered: 03-Oct-2006 KENNETH Paul LPN Start : 03-Oct-2006 End : 11-Feb-2007 Inactive Comments: states not using/never filled the rx Start: 10-03-2006 End: 02-11-2007 ADVAIR DISKUS, 100-50MCG/DOS E (Inhalation Miscellaneous) 1 (one) Misc BID for 0 days Quantity: 1 {Misc} Refills: 0 Ordered: 03-Oct-2006 KENNETH Paul LPN Start : 03-Oct-2006 End : 11-Feb-2007 Inactive Comments: states not using/never filled the rx Comment on above: states not using/nev er filled the rx herbal drops (10 sources) Start: 03-07-2021 End: 02-13-2024 herbal drops Discontinued PO 0 March 07, 2021 12:00am February 13, 2024 1:37pm from a herbalist Start: 03-07-2021 End: 02-13-2024 herbal drops Discontinued PO March 07, 2021 12:00am February 13, 2024 1:37pm Start: 03-07-2021 herbal drops A ctive PO March 06, 2021 11:00pm Start: 03-07-2021 herbal drops A ctive PO March 07, 2021 12:00am Lactobacillus acidophilus (7 sources) LACTOBACILLUS ACIDOPHILUS (ACIDOPHILUS ORAL) Take by mouth. 0 Active Comment on above: Take by mouth. levoFLOXacin 500 mg oral tablet (16 sources) Quinolone Antimicrobial Start: 03-28-20 17 End: 04-04-20 17 take 1 tablet by mouth once daily LevoFLOXacin 500 MG Oral Tablet 1 (one) Tablet daily for 7 days Quantity: 7 {Tablet} Refills: 0 Ordered: 28-Mar-2017 Audrey Birch RN Start : 28-Mar-2017 End : 04-Apr-2017 Inactive loratadine 10 mg oral capsule (16 sources) Start: 04-30-20 13 End: 12-03-19 14 take 1 capsule by mouth once daily CLARITIN, 10MG (Oral Capsule) 1 Capsule daily for 0 days Quantity: 30 {Capsule} Refills: 0 Ordered: 03-Dec-2013 Soheila Moore CMA Start : 30-Apr-2013 End : 03-Dec-2013 Inactive meloxicam 7.5 mg oral tablet (20 sources) Nonsteroidal Anti-inflammatory Drug Start: 04-06-20 End: 05-14-20 take 1 tablet by mouth once daily Meloxicam 7.5 mg tablet Discontinued 7.5 mg PO DAILY April 06, 2025 12:00am May 14, 2025 1:47pm Start: 02-13-2024 End: 04-06-2025 take 7.5 mg by mouth once daily Meloxicam 15 mg tablet Discontinued 7.5 mg PO daily February 13, 2024 12:00am April 06, 2025 6:12pm Start: 10-27-2022 take 1 tablet by kodi th once daily meloxicam (MOBIC) 15 mg tablet Take 15 mg by mouth once daily. 0 12/24/2022 Active Comment on above: Take 15 mg by mouth once daily. meropenem (5 sources) Penem Antibacterial Start: 04-06-2025 End: 05-14-2025 MEROPENEM 200 mg inhaler Discontinued TWICE A DAY April 06, 2025 12:00am May 14, 2025 1:48pm TAKING A COMPOUNDED INHALATION; MEROPENEM 200MG/4ML INHALATION SYRINGE TWICE A DAY. Start: 04-06-2025 MEROPENEM 200 mg inhaler Active TWICE A DAY April 06, 2025 12:00am TAKING A COMPOUNDED INHALATION; MEROPENEM 200MG/4ML INHALATION SYRINGE TWICE A DAY. 60 actuat mometasone furoate 0.22 mg/actuat dry powder inhaler (16 sources) Corticosteroid Start: 04-02-2013 take 2 puff(s) by inhalation once daily ASMANEX 60 METERED DOSES, 220MCG/INH (Inhalation Aerosol Powder Breath Activated) 2 puffs Aero Pow Br Act qd for 0 days Quantity: 1 {Aero_Pow_Br_Act} Refills: 3 Ordered: 02-Apr-2013 Arleth Peralta Start : 02-Apr-2013 Inactive MULTIVITAMIN ORAL (7 sources) MULTIVITAMIN ORA L Take by mouth. 0 Active Comment on above: Take by mouth. naltrexone hydrochloride 50 mg oral tablet (10 sources) Opioid Antagonist Start: 01-21-2024 End: 05-16-2024 take 1 tablet by mouth once daily Naltrexone 50 mg tablet Discontinued 6 mg PO DAILY February 13, 2024 1:36pm May 16, 2024 11:32am nystatin [id number] unt/ml oral suspension (16 sources) Polyene Antifungal Start: 11-03-2010 End: 11-13-2010 NYSTATIN, [id number]/ML (Mouth/Throat Suspension) 5 Suspension tid swish and swallow for 10 days Quantity: 150 {Suspension} Refills: 0 Ordered: 03-Nov-2010 Domi Handley DO, DO, Kathleen Start : 03-Nov-2010 End : 13-Nov-2010 Inactive omeprazole 40 mg delayed release oral capsule (16 sources) Proton Pump Inhibitor Start: 05-24-2012 End: 08-25-2015 OMEPRAZOLE, 40MG (Oral Capsule Delayed Release) [address] daily for 0 days Quantity: 30 {Capsule_DR} Refills: 1 Ordered: 25-Aug-2015 Shannon Cordova LPN Start : 24-May-2012 End : 25-Aug-2015 Discontinued ondansetron 4 mg disintegrating oral tablet (18 sources) Serotonin-3 Receptor Antagonist Start: 01-21-2024 End: 02-13-2024 take 1 tablet by mouth every six hours as needed Ondansetron 4 mg tablet,disintegrating Discontinued 4 mg PO EVERY 6 HOURS as needed January 21, 2024 1:00am February 13, 2024 1:37pm Start: 03-15-2021 End: 11-01-2022 take 1-2 tablets by mouth every eight hours as needed for nausea ondansetron 4 mg oral Tablet,disintegrating 1-2 Tablet q8hrs prn nausea for 0 days Quantity: 30 {Tablet} Refills: 0 Ordered: 01-Nov-2022 Shannon Cordova LPN Start : 15-Mar-2021 End : 01-Nov-2022 Inactive prednisoLONE 1.2 mg/ml ophthalmic suspension (17 sources) Corticosteroid Start: 10-26-2015 End: 03-27-2017 Pred Mild 0.12 % Ophthalmic Suspension 2 (two) Suspension Suspension drops qd left eye for 0 days Quantity: 1 {Bottle} Refills: 0 Ordered: 27-Mar-2017 Shannon Cordova LPN Start : 26-Oct-2015 End : 27-Mar-2017 Discontinued End: 01-12-2023 prednisoLONE sodium phosphat e (INFLAMASE FORTE) 1 % ophthalmic solution Use 1 Drop in the left eye four times daily. 0 01/12/2023 Discontinued Comment on above: Use 1 Drop in the le ft eye four times daily. predniSONE 20 mg oral tablet (20 sources) Start: 04-06-2025 End: 05-14-2025 take 2 tablets by mouth once daily Prednisone 20 mg tablet Discontinued 40 mg PO DAILY 12 6 0 April 06, 2025 12:00am May 14, 2025 1:49pm Start: 10-03-2006 End: 10-11-2006 take 3 tablets by mouth once daily PREDNISONE, 10MG (Oral Tablet) 3 (three) Tablet Daily for 7 days Refills: 0 Ordered: 03-Oct-2006 RUTHIE PATEL CNP Start : 03-Oct-2006 End : 11-Oct-2006 Inactive Comments: Pt not sure if she is going to take it Comment on above: Pt not sure if she i s going to take it progesterone 100 mg oral capsule (5 sources) Progesterone Start: 01-21-20 End: 02-13-20 24 take 1 capsule by mouth once daily in the morning Progesterone Micronized 100 mg capsule Discontinued 100 mg PO EVERY MORNING January 21, 2024 1:00am February 13, 2024 1:37pm off 7 days; repeat cycle promethazine hydrochloride 25 mg oral tablet (16 sources) Phenothiazine Start: 11-22-20 15 End: 03-27-20 17 Promethazine HCl 25 MG Oral Tablet 1 (one) Tablet Tablet q6-8 hrs only as needed for nausea for 0 days Quantity: 30 {Tablet} Refills: 0 Ordered: 27-Mar-2017 Shannon Cordova LPN Start : 22-Nov-2015 End : 27-Mar-2017 Discontinued Comments: Medication taken as needed. Comment on above: Medication taken as needed. tiZANidine 4 mg oral tablet (20 sources) Central alpha-2 Adrenergic Agonist Start: 11-23-20 take 2-4 mg by mouth every twelve hours as needed tiZANidine (ZANAFLEX) 4 mg tablet Take 2-4 mg by mouth twice daily as needed. 0 11/23/2022 Active Start: 04-13-2017 End: 05-21-2018 take 1 capsule by mouth twice daily TiZANidine HCl 4 MG Oral Capsule 1 (one) Capsule bid for 0 days Quantity: 20 {Capsule} Refills: 0 Ordered: 21-May-2018 Shannon Cordova LPN Start : 13-Apr-2017 End : 21-May-2018 Inactive Comment on above: Take 2-4 mg by mouth twice daily as needed. Problems Active Problems Problem Classification Problem Date Documented Date Episodic/Chronic Abdominal hernia (7 sources) Hiatal hernia; Translations: [Diaphragmatic hernia without obstruction or gangrene] 11-21-2021 Episodic Adjustment disorders (20 sources) Stress-related problem; Translations: [Stress reaction, emotional] 04-20-2020 Chronic Comment on above: 3- deaths ,loss of v ision Administrative/social admission (3 sources) Medical examinations/reports status; Translations: [Well female exam with routine gynecological exam] 04-20-2020 Episodic Anxiety disorders (20 sources) Anxiety; Translations: [Acute stress disorder] 04-20-2020 Chronic Comment on above: improving Asthma (20 sources) Acute exacerbation of asthma; Translations: [Asthma] Onset: 6 Resolved: 6 10-05-2016 Chronic Comment on above: improved Cardiac dysrhythmias (10 sources) Atrial fibrillation; Translations: [Unspecified atrial fibrillation] Onset: 4 11-05-2024 Chronic Coagulation and hemorrhagic disorders (1 source) Other thrombophilia; Translations: [Other thrombophilia] Onset: 5 Chronic Disorders of lipid metabolism (20 sources) Hypercholesterolemia; Translations: [Hypercholesteremia] 04-20-2020 Chronic Diverticulosis and diverticulitis (20 sources) Diverticular disease; Translations: [Diverticulitis of intestine without perforation or abscess without bleeding, unspecified part of intestinal tract] Onset: 6 04-20-2020 Chronic Headache; including migraine (20 sources) Migraine; Translations: [Migraine] 04-20-2020 Chronic Headache; including migraine (20 sources) Headache; Translations: [Headache] 03-11-2021 Episodic Comment on above: on rt side Heart valve disorders (20 sources) Mitral valve prolapse; Translations: [Mitral valve prolapse] 04-20-2020 Chronic Menopausal disorders (4 sources) Postmenopausal bleeding; Translations: [Postmenopausal bleeding] Onset: 3 Chronic Mood disorders (5 sources) Depressive disorder; Translations: [Depression] 01-21-2024 Chronic Mycoses (20 sources) Tinea pedis; Translations: [Candidiasis] Resolved: 6 04-20-2020 Episodic Nausea and vomiting (20 sources) Nausea; Translations: [Nausea] Resolved: 6 10-05-2016 Episodic Nonspecific chest pain (20 sources) Chest pain, unspecified; Translations: [Chest pain, unspecified] Resolved: 1 04-20-2020 Episodic Comment on above: atypicla EKG okay. c ould be GI with eat more yesterday and gassy. could be muscular with pain on palp. have to rule out DVT/PE with FMX and plane right start with DDIMER and doppler. see how GI cocktail does Nutritional deficiencies (20 sources) Vitamin D deficiency, unspecified; Translations: [Vitamin D deficiency] 04-20-2020 Chronic Open wounds of extremities (2 sources) Laceration of right lower leg; Translations: [Laceration without foreign body, right lower leg, initial encounter] Onset: 5 09-15-2025 Episodic Other acquired deformities (7 sources) Spondylolisthesis L5/S1 level; Translations: [Spondylolisthesis, lumbosacral region] 11-21-2021 Episodic Other aftercare (2 sources) Patient encounter status; Translations: [NSAID long-term use] 11-01-2022 Episodic Other circulatory disease (20 sources) Elevated blood-pressure reading without diagnosis of hypertension; Translations: [Elevated blood-pressure reading without diagnosis of hypertension] 04-20-2020 Episodic Comment on above: only one aleve in 2 weeks. was using more. checkfor sleep apnea. Other circulatory disease (4 sources) Elevated blood pressure; Translations: [Elevated blood-pressure reading, without diagnosis of hypertension] 05-14-2025 Episodic Other connective tissue disease (20 sources) Foot pain; Translations: [Foot pain] Resolved: 6 10-05-2016 Episodic Other connective tissue disease (20 sources) Bursitis; Translations: [Bursitis] 04-20-2020 Episodic Other connective tissue disease (20 sources) Pain in lower limb; Translations: [Leg pain] Resolved: 6 10-05-2016 Episodic Other connective tissue disease (20 sources) Spasm; Translations: [Muscle spasm] 04-20-2020 Episodic Comment on above: in shoulder blade ar ea reprod with arm movemtn-- no reprod pain with cervical manipulaiton Other connective tissue disease (20 sources) Pain in left lower limb; Translations: [Leg pain, posterior, left] 05-21-2018 Episodic Other connective tissue disease (20 sources) Recurrent falls ; Translations: [Frequent falls] 03-15-2021 Episodic Comment on above: sees chiropractic an d naturapath Other diseases of kidney and ureters (7 sources) Cyst of kidney; Translations: [Cyst of kidney, acquired] 11-21-2021 Episodic Other female genital disorders (20 sources) Abnormal uterine bleeding; Translations: [DYSFUNCTIONAL UTERINE BLEEDING (Renamed from DUB (dysfunctional uterine bleeding))] 04-20-2020 Chronic Comment on above: s/p tubal Other female genital disorders (20 sources) Disorder of female genital organs; Translations: [Other specified conditions associated with female genital organs and menstrual cycle] 04-20-2020 Episodic Other gastrointestinal disorders (20 sources) Irritable bowel syndrome; Translations: [Irritable bowel syndrome] 04-20-2020 Chronic Comment on above: stable Other gastrointestinal disorders (20 sources) Constipation; Translations: [Constipation] 03-01-2021 Episodic Comment on above: constipation diarrhe a alternating Other gastrointestinal disorders (20 sources) Dysphagia; Translations: [Dysphagia] 03-01-2021 Episodic Comment on above: Feeling of food bein g stuck Other gastrointestinal disorders (20 sources) Abnormal feces; Translations: [Abnormal stools] 03-15-2021 Episodic Comment on above: she will have herbal ist check for h pylori and Cdiff Other gastrointestinal disorders (1 source) History of irritable bowel syndrome; Translations: [Personal history of other diseases of the digestive system] 09-15-2025 Episodic Other hematologic conditions (4 sources) Protein level - finding; Translations: [Elevated troponin] 03-15-2021 Episodic Other hematologic conditions (17 sources) Raised cardiac enzyme or marker; Translations: [Elevated troponin] 03-15-2021 Episodic Other inflammatory condition of skin (20 sources) Psoriasis; Translations: [Psoriasis] 04-20-2020 Chronic Comment on above: stable Other inflammatory condition of skin (20 sources) Seborrheic dermatitis; Translations: [Seborrheic dermatitis, unspecified] 04-20-2020 Episodic Other inflammatory condition of skin (5 sources) Seborrheic dermatitis, unspecified Episodic Other injuries and conditions due to external causes (20 sources) Injury of knee; Translations: [Knee injuries] Resolved: 6 10-05-2016 Episodic Other injuries and conditions due to external causes (8 sources) History of fall Episodic Other lower respiratory disease (20 sources) Dyspnea; Translations: [Dyspnea on exertion] Episodic Other lower respiratory disease (20 sources) Dyspnea on exertion; Translations: [SOB (shortness of breath) on exertion] Resolved: 6 10-05-2016 Episodic Comment on above: think asthma attack but cv w.u neg Other nervous system disorders (1 source) Idiopathic progressive neuropathy; 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 crp still up not as bad saw Dr. lewis in past. Other non-traumatic joint disorders (15 sources) Pain in unspecified knee; Translations: [Knee pain] 10-27-2022 Episodic Other nutritional; endocrine; and metabolic disorders (20 sources) Body mass index 40+ - severely obese; Translations: [BMI 40.0-44.9, adult] Onset: 3 Resolved: 0 04-20-2020 Chronic Other nutritional; endocrine; and metabolic disorders (20 sources) Morbid obesity; Translations: [Morbid obesity] 04-20-2020 Chronic Comment on above: lost alot weight and gain all back. stop focusing and gain all back. knows need lifestyle change Other nutritional; endocrine; and metabolic disorders (20 sources) Obesity; Translations: [Obesity] 04-20-2020 Chronic Comment on above: gain 20 back talk al ot about motivation. getting stuck on cappacinos will come off. Other nutritional; endocrine; and metabolic disorders (20 sources) Body mass index 30+ - obesity; Translations: [BMI 35.0-35.9,adult] 04-20-2020 Chronic Other screening for suspected conditions (not mental disorders or infectious disease) (2 sources) Endometrium thickened; Translations: [Abnormal findings on diagnostic imaging of other specified body structures] Onset: 3 Chronic Other skin disorders (20 sources) Sebaceous cyst; Translations: [Sebaceous cyst of skin] Resolved: 6 03-15-2021 Episodic Comment on above: back Other skin disorders (20 sources) Eruption; Translations: [Rash] 04-20-2020 Episodic Comment on above: thinks worsening aft er MRI dye ? eczema Other upper respiratory disease (20 sources) Allergic rhinitis due to other allergen; Translations: [Allergic rhinitis] Chronic Other upper respiratory disease (16 sources) Allergic rhinitis; Translations: [Allergic rhinitis due to other allergen] 04-20-2020 Chronic Other upper respiratory infections (20 sources) Acute sinusitis, unspecified; Translations: [Acute sinusitis] 04-20-2020 Episodic Pneumonia (except that caused by tuberculosis or sexually transmitted disease) (20 sources) Bacterial pneumonia; Translations: [Infective pneumonia] 04-20-2020 Episodic Poisoning by other medications and drugs (20 sources) Allergic reaction to drug; Translations: [Allergic reaction to drug, initial encounter] 04-20-2020 Episodic Comment on above: levaquin Residual codes; unclassified (3 sources) Needs influenza immunization; Translations: [Need for prophylactic vaccination and inoculation against influenza (Renamed from Need for immunization against influenza)] 04-20-2020 Episodic Residual codes; unclassified (20 sources) Generalized aches and pains; Translations: [Body aches] Resolved: 7 04-20-2020 Episodic Residual codes; unclassified (20 sources) Influenza vaccination declined; Translations: [Influenza vaccination declined (Renamed from Refused influenza vaccine)] 03-15-2021 Episodic Residual codes; unclassified (20 sources) Non-smoker; Translations: [Nonsmoker] 03-15-2021 Episodic Retinal detachments; defects; vascular occlusion; and retinopathy (20 sources) Retinal defect; Translations: [Retinal tear, left] 04-20-2020 Episodic Comment on above: s/p 3- surgeries and now told permanent damage Skin and subcutaneous tissue infections (20 sources) Infection of skin AND/OR subcutaneous tissue; Translations: [Skin infection] Resolved: 6 10-05-2016 Episodic Comment on above: likely sebaceous cys t Spondylosis; intervertebral disc disorders; other back problems (20 sources) Degeneration of intervertebral disc; Translations: [Degenerative disc disease] 04-20-2020 Chronic Spondylosis; intervertebral disc disorders; other back problems (20 sources) Lumbago; Translations: [Low back pain] Resolved: 6 10-05-2016 Episodic Comment on above: xray show DDD. cxr o harleen. MRI thoracic show ddd no impingement. chiropactor better now with adjustment. refuse lyrica at this point. able to sleep laying down. take aleve. ? shingles without rash. Superficial injury; contusion (1 source) Abrasion, right lower leg, initial encounter; Translations: [Abrasion of leg, right] 09-07-2025 Episodic Unclassified (20 sources) Unclassified (19 sources) Influenza vaccination declined; Translations: [Influenza vaccination declined (Renamed from Refused influenza vaccine)] 04-20-2020 Unclassified (20 sources) Hypercholesteremia (272.0) Unclassified (20 sources) Non-smoker; Translations: [Nonsmoker] 04-20-2020 Unclassified (6 sources) Degenerative Disc Disease (722.6) Unclassified (8 sources) Stress Reaction (308.4) Unclassified (20 sources) Stress reaction, emotional Unclassified (20 sources) Retinal tear, left Unclassified (20 sources) Abdominal Pain,LLQ (789.04) Unclassified (8 sources) Well Woman Exam , Medicare (V76.2) (Renamed from Well Woman Exam , Medicare (V76.2, V72.31)) Unclassified (20 sources) BMI 40.0-44.9, adult Unclassified (20 sources) Non-smoker Unclassified (16 sources) BMI 35.0-35.9,adult Unclassified (8 sources) Hypercholesteremia Unclassified (8 sources) Abdominal discomfort in left upper quadrant Varicose veins of lower extremity (20 sources) Venous varices; Translations: [Varicosity] 04-20-2020 Episodic Past or Other Problems Problem Classification Problem Date Documented Da te Episodic/Chronic Abdominal pain (20 sources) Abdominal pain; Translations: [Pain in pelvis] Onset: 6 Resolved: 6 04-20-2020 Episodic Comment on above: still has this. roman ng some aleve. pt want tests on stomach. not take PPI. has alot stress over winter. not have reflux now. history of IBS. explained to her causes and since no red flags a trial of a PPI is warrented before do all these expensive test that may not change what do. if any blood in stool, fevers, intractable vomiting then call worsening think interstitial c ystitis gave handout on. not real bad now. checkus if worsen TCA and uro see first part of no te for thoughts This is left upper q uad with history of divertic and alternating constipation/diarrhea will check abd and consider treatment of diverticulitis Asthma (16 sources) Asthma Conditions associated with dizziness or vertigo (16 sources) Dizziness and giddiness; Translations: [Dizziness and giddiness] Resolved: 6 10-05-2016 Episodic Conditions associated with dizziness or vertigo (13 sources) Conditions associated with dizziness or vertigo Headache; including migraine (14 sources) Headache; including migraine Heart valve disorders (1 source) Cardiac murmur, unspecified; Translations: [Cardiac murmur, unspecified] Onset: 5 Episodic Hemorrhoids (16 sources) Hemorrhoids; Translations: [Hemorrhoids] Resolved: 6 10-05-2016 Episodic Immunizations and screening for infectious disease (20 sources) Need for prophylactic vaccination and inoculation against influenza; Translations: [Needs influenza immunization] Onset: 3 03-15-2021 Episodic Other connective tissue disease (3 sources) Recurrent falls ; Translations: [Frequent falls] 04-20-2020 Comment on above: sees chiropractic an d naturapath Other inflammatory condition of skin (3 sources) Seborrheic dermatitis, unspecified Other lower respiratory disease (1 source) Shortness of breath; Translations: [Shortness of breath] Onset: 5 Episodic Other non-traumatic joint disorders (1 source) Pain in left wrist; Translations: [Pain in left wrist] Onset: 5 Episodic Other non-traumatic joint disorders (3 sources) Pain in left knee; Translations: [Left knee pain] 04-20-2020 Other screening for suspected conditions (not mental disorders or infectious disease) (20 sources) Blood chemistry abnormal; Translations: [Abnormal blood chemistry] Onset: 3 04-20-2020 Episodic Comment on above: elevated CRP 14.3, w as 15.86 in 06-19-07, and was 20.9 on 10-28-2010 Phlebitis; thrombophlebitis and thromboembolism (20 sources) Thrombophlebitis of superficial veins of lower extremity; Translations: [Superficial thrombophlebitis of lower extremity, unspecified laterality] Onset: 5 04-20-2020 Episodic Comment on above: Left leglast ultraso und end of march 2015 - sitll there watching progression proximally Pulmonary heart disease (9 sources) H/O: pulmonary embolus; Translations: [Personal history of pulmonary embolism] Onset: 4 02-13-2024 Episodic Unclassified (20 sources) Rash (782.1) Unclassified (16 sources) Abortions/Miscarriages ; Translations: [Abortions/Miscarriage s] 04-20-2020 Comment on above: 1 Unclassified (8 sources) Atypical Chest Pain (786.50) (Renamed from SYMPTOMS INVOLVING RESPIRATORY SYSTEM AND OTHER CHEST SYMPTOMS, UNSPECIFIED CHEST PAIN (786.50)) Unclassified (16 sources) Elevated Blood Pressure without diagnosis of Hypertension (796.2) Unclassified (20 sources) ARTHRALGIAS 719.40 Unclassified (8 sources) Steff infection (112.9) Unclassified (20 sources) DEFICIENCY, VITAMIN D NOS (268.9) Unclassified (20 sources) PSORIASIS NEC (696.1) Unclassified (16 sources) Deliveries (Parity); Translations: [Deliveries (Parity)] 04-20-2020 Comment on above: 4 Unclassified (8 sources) DYSFUNCTIONAL UTERINE BLEEDING (Renamed from DUB (dysfunctional uterine bleeding)) Unclassified (11 sources) Protein level - finding; Translations: [Elevated troponin] 06-06-2018 Unclassified (3 sources) Patient encounter status; Translations: [Encounter for screening for malignant neoplasm of cervix] 04-20-2020 Unclassified (16 sources) Abnormal blood chemistry (790.6) Unclassified (8 sources) Arthralgia (719.4) Unclassified (8 sources) Skin infection Unclassified (8 sources) Knee injuries Unclassified (8 sources) BURSITIS NOS (727.3) Unclassified (16 sources) Varicosity Unclassified (16 sources) Pregnancies (); Translations: [Pregnancies ()] 04-20-2020 Comment on above: 5 Unclassified (6 sources) Sebaceous cyst of skin; Translations: [Sebaceous cyst] Resolved: 6 04-20-2020 Comment on above: back Unclassified (20 sources) Unspecified Diagnosis 04-20-2020 Unclassified (8 sources) Lower Leg Pain (719.46) Unclassified (8 sources) Superficial thrombophlebitis of lower extremity, unspecified laterality Unclassified (8 sources) Pain of left lower extremity Unclassified (20 sources) Diverticulitis of intestine without perforation or abscess without bleeding, unspecified part of intestinal tract Unclassified (8 sources) Abdominal pain, diffuse Unclassified (20 sources) SOB (shortness of breath) on exertion Unclassified (8 sources) Chest pain, atypical Unclassified (8 sources) Leg pain, posterior, left Unclassified (8 sources) Body aches Unclassified (8 sources) Allergic reaction to drug, initial encounter Unclassified (8 sources) Muscle spasm Unclassified (8 sources) BMI 38.0-38.9,adult Unclassified (8 sources) Well Female (Younger Female) (V72.31) Unclassified (8 sources) LUQ discomfort Unclassified (8 sources) Steff infection Unclassified (5 sources) Abnormal stools Unclassified (10 sources) s/p incision and drainage left shoulder blade abscess Onset: 9 06-16-2022 Results Test Name Value Interpretation Reference Range Facility Cardiology Visit Reporton Cardiology Visit Report [facility] [address] [place], [place] [address] OFFICE VISIT Date of Service: 09/21/25 MR#: [id number] Acct: [id number] Name: VICKIE BARLOW Rep #: [id number] : 1965 Provider: LYNDSEY Eric rts Age/Sex: 60/F [place] [facility] [place] Signed HPI HPI History of Present Illness Details: This is a pleasant 60-year-old lady who presents for evaluation of atrial fibrillation. She said that while she was in [place] in November of 2023, she got short of breath very fatigued sometime after she had developed COVID. She went into the hospital and was noted to have pulmonary embolus of the right lung without any evidence of right ventricular strain, as well as new onset atrial fibrillation. She had an echocardiogram performed which demonstrated preserved left ventricular systolic function estimated EF of 55 to 60%. She was put on anticoagulation initially with heparin and then switched to Eliquis and put on Lopressor 25 twice daily. At her previous office visit, she stopped her Eliquis therapy due to increased bruising. From a cardiac standpoint, the patient is doing well. She does use a walker to help with ambulation. She denies any palpitations, chest pain, pressure or heaviness. She denies SOB, Orthopnea, and PND. She does not have bleeding issues; no blood in urine, stool, or nosebleeds. She denies any decrease in energy level, myalgias, or claudication. She does not have edema, or sudden weight gain. She denies lightheadedness, dizziness, syncopal or near syncopal episodes, and headaches. Her blood pressure at home today was 118/82. Intake Vital Signs 09/07/25 12:51 09/21/25 06:57 Height 5 ft 3 in 5 ft 3 in Weight: 249 lb BMI 44.1 BP 145/81 H Blood Pressure Location Lt brachial Position Sitting Respiration 18 Pulse 96 Pulse Source Monitor Pulse Oximetry (%) 100 Intake Visit Reasons: 4 M Process Coordinator Required: No Is patient in pain?: No Allergies celecoxib (From Celebrex) Allergy (Verified 09/21/25 14:30) Shortness of breath levofloxacin (From Levaquin) Adverse Reaction (Verified 09/21/25 14:30) Pain in joints Medications ???Medication ???Instructions ???Recorded ???Confirmed ???Type lactobacillus combination no.8 3 3,000 mmu cells PO DAILY 03/07/21 09/21/25 History billion cell capsule (Adult Probiotic) multivitamin (Multiple Vitamins 1 tablet PO DAILY 03/07/21 5 History tablet) acetaminophen 325 mg capsule 650 mg PO DAILY PRN fever or pain 04/06/25 09/21/25 History albuterol sulfate 2.5 mg/3 mL 2.5 mg inhalation BID PRN 04/06/25 09/21/25 History (0.083 %) solution for nebulization shortness of breath or wheezing albuterol sulfate 90 mcg/actuation 2 puff inhalation Q4H PRN 09/21/25 History aerosol inhaler shortness of breath or wheezing niacin PO DAILY 04/06/25 09/21/25 History soybean, fermented 50 mg capsule 50 mg PO BID 04/06/25 09/21/25 His tory (Nattokinase) tramadol 50 mg tablet 50 mg PO BID PRN severe pain 04/0609/21/25 History amoxicillin 500 mg tablet 500 mg PO BID 09/21/25 09/21/25 Hi story metoprolol succinate 50 mg 50 mg PO DAILY #90 tabs 09/21/25 1 Rx tablet,extended release 24 hr Have you fallen in the past year?: No PFSH Medical History Hx of pulmonary embolus Atrial fibrillation Atypical chest pain Arthralgia Frequent falls Dysphagia Anxiety Migraine Asthma Vitamin D deficiency Mitral valve prolapse Hypercholesterolemia Psoriasis IBS (irritable bowel syndrome) Diverticulitis Depression Surgical History s/p incision and drainage left shoulder blade abscess ( 08/29/19) Detached retina S/P eye surgery S/P section Family History Mother Asthma Diabetes Heart disease Hypertension CAD (coronary artery disease) COPD (chronic obstructive pulmonary disease) Rheumatoid arthritis Sister Diabetes Heart disease Father , age 44 Sudden cardiac Myocardial infarction Social History household members: spouse and children housing: house current occupational status: unemployed Smoking Status: Never smoker second hand exposure: Yes alcohol intake: former what type of physical activity do you participate in: none seatbelt use: always do you feel safe at home: Yes ROS Const Const: Negative for fatigue, weakness, headache(s) or frequent falls Eyes Eyes: Negative for blurry vision ENT ENT: Negative for headache(s), dizziness or Nosebleed/epistaxis Cardio Chest Pain: No Palpitati (more content not included)... Normal [facility] L3410.9992on 09-17-2025 [facility]. COMMENT Normal . [facility] Comment on above: Order Comment: [id number] 3MG RBC RMT Result Comment: Test Ordered: [id number] Magnesium, RBC Test(s) 601161-Oqttbzfpu, RBC was developed and its performance characteristics determined by [facility]. It has not been cleared or approved by the Food and Drug Administration. Magnesium, RBC 5.1 mg/dL Reference Range: 3.7-7.0 Performed at: [address] [id number] Resident Program Specialist: Juan Pablo Grady MD, Phone: [phone] Performed at: [address] [id number] Resident Program Specialist: Randy Nova PhD, Phone: [phone] Performed By: #### L 100.0100, L500.2500, L501.4021 #### [facility] Laboratory [employer] [place], [place], [address] L3410.9994on 09-16-2025 [facility]. 2 COMMENT Normal . [facility] Comment on above: Order Comment: [id number] 8AMINO ACID QN PLASMA FRZ Result Comment: Test Ordered: [id number] Amino Acid Profile, Qn, Plasma Test(s) 696016-Lopjalv; 224574-Ufuqkzhvk; 127937- Hydroxyproline; 746817-Gilzwhvah; 163984-Gqnsug; 567548- Asparagine; 299446-Ldffapden; 662078-Albqtrphs; 002024- Sarcosine; 053568-Ibupg-wfyoicpcsgnn; 767529-Pawwqfd; 328974-Qnnmfus; 031631-Dqjnsid; 364602-Qsogfqwkfq; 630136- Alpha-aminobutyrate; 263120-Puxtyj; 550638-Tspbdlp; 881832- Methionine; 235643-Engjjozrpysgoo; 677598-Wrwpngvoboyja; 508656-Qgdzufthcrtguu; 553128-Sohxtsnyui; 571872-Qssldua; 153827-Xfdodjsf; 378714-Yuxfckhmmxjkz; 712421- Argininosuccinate; 408514-Ymlt-tpftptz; 686319- Beta-aminoisobutyrate; 127273-Bogjiasktwi; 910314- Gamma-aminobutyrate; 815983-Rotebhwfdi; 501036- Hydroxylysine; 291896-Gggevybki; 979445-Oyndgx; 248680- Histidine; 195059-Swqpkirj was developed and its performance characteristics determined by [employer]. It has not been cleared or approved by the Food and Drug Administration. Taurine 71.1 umol/L Reference Range: 29.2-132.3 Aspartate 1.4 umol/L Reference Range: 0.0-7.4 Hydroxyproline 20.0 umol/L Reference Range: 4.7-35.2 Threonine 151.8 umol/L Reference Range: 67.8-211.6 Serine 82.2 umol/L Reference Range: 48.7-145.2 Asparagine 41.5 umol/L Reference Range: 29.5-84.5 Glutamate 35.7 umol/L Reference Range: 18.1-155.9 Glutamine 433.7 umol/L Reference Range: 372.8-701.4 Sarcosine <0.5 umol/L Reference Range: 0.0-4.0 Alpha-aminoadipate 1.0 umol/L Reference Range: 0.0-1.9 Proline 92.2 umol/L Reference Range: 84.8-352.5 Glycine 240.4 umol/L Reference Range: 144.0-411.0 Alanine 267.0 umol/L Reference Range: 209.2-515.5 Citrulline 22.7 umol/L Reference Range: 15.6-46.9 Alpha-aminobutyrate 17.3 umol/L Reference Range: 5.4-34.5 Valine 172.8 umol/L Reference Range: 133.0-317.1 Cystine 33.0 umol/L Reference Range: 15.8-47.3 Methionine 15.1 umol/L Reference Range: 14.7-35.2 Homocitrulline <0.5 umol/L Reference Range: 0.0-1.7 Cystathionine <0.5 umol/L Reference Range: 0.0-0.7 Alloisoleucine 0.7 umol/L Reference Range: 0.0-3.2 Isoleucine 34.2 umol/L Reference Range: 32.8-88.3 Leucine 86.7 umol/L Reference Range: 66.7-165.7 Tyrosine 51.7 umol/L Reference Range: 27.8-83.3 Phenylalanine 53.2 umol/L Reference Range: 35.8-76.9 Argininosuccinate <0.1 umol/L Reference Range: 0.0-3.0 Beta-alanine 2.9 umol/L Reference Range: 1.1-9.0 Beta-aminoisobutyrate 2.2 umol/L Reference Range: 0.0-4.3 Homocystine <0.3 umol/L Reference Range: 0.0-0.2 Gamma-aminobutyrate <0.5 umol/L Reference Range: 0.0-0.6 Tryptophan 38.5 umol/L Reference Range: 23.5-93.0 Hydroxylysine 0.2 umol/L Reference Range: 0.1-0.8 Ornithine 64.2 umol/L Reference Range: 30.1-101.3 Lysine 168.1 umol/L Reference Range: 94.0-278.0 Histidine 42.5 [L ] umol/L Reference Range: 47.2-98.5 Arginine 51.6 umol/L Reference Range: 36.3-119.2 Interpretation Comment TG Reference Range: . No evidence of aminoacidopathy by quantitative plasma amino acid analysis. Director Review Comment TG Reference Range: . Glenda Abrams, PhD Director, Biochemical Genetics To discuss these results or other testing for inborn errors of metabolism, please contact our Biochemical Geneticists at [phone] [place]([phone]), [facility] [employer] Customer Service, [place], [place]. Methodology Comment Reference Range: . Amino acid concentrations were obtained by LC-MS/MS analysis. Performed at: [address] [id number] Resident Program Specialist: Juan Pablo Grady MD, Phone: [phone] Performed at: TG - [facility] [address] [place], [place] [id number] Resident Program Specialist: Regina Montana [facility], Phone: [phone] Performed at: CB - [facility] [place] [address] [place], [place] [id number] Resident Program Specialist: Randy Nova PhD, Phone: [phone] Performed By: #### L 100.0100, L500.2500, L569.4025 #### [facility] Laboratory [address] [place], [address] Emergency Department Summary on 09-07-2025 Emergency Department Summary [facility] Medical Records Department [address] [place] [address] Emergency Department Summary 09/07/25 MR#: [id number] Acct: [id number] Name: VICKIE BARLOW Rep #: [id number] : 1965 60 From: Dylan Herrera DO PCP: Mary Cobb, C[employer] ENGINEER-C Status:REG ER Location: ED HPI History of Present Illness Chief Complaint: Wound Narrative Narrative: Patient is a 60-year-old female with past medical atrial fibrillation, PE no longer on Xarelto per the patient, IBS, hypercholesteremia, migraines, depression who presented to the emergency department chief complaint of wound to the right leg. States that she cut it on a cardboard box earlier today around 11 AM she states that the bleeding has stopped but she is unsure of what to do for this exactly therefore she came here to be further evaluated. Patient states that she is unsure when her last tetanus shot was. She states that she does not want one here today. [facility] Medical History Hx of pulmonary embolus Atrial fibrillation Atypical chest pain Arthralgia Frequent falls Dysphagia Anxiety Migraine Asthma Vitamin D deficiency Mitral valve prolapse Hypercholesterolemia Psoriasis IBS (irritable bowel syndrome) Diverticulitis Depression Home Medications ???Medication ???Instructions ???Recorded ???Last Taken ???Type lactobacillus combination no.8 3 3,000 mmu cells PO DAILY 03/07/21 Unknown History billion cell capsule (Adult Probiotic) multivitamin (Multiple Vitamins 1 tablet PO DAILY 03/07/21 5 History tablet) methocarbamol 500 mg tablet 500 mg PO BID PRN muscle spasm Unknown History sertraline 50 mg tablet 25 mg PO DAILY 05/16/24 04/06/25 H istory acetaminophen 325 mg capsule 650 mg PO DAILY PRN fever or pain 04/06/25 04/06/25 History albuterol sulfate 2.5 mg/3 mL 2.5 mg inhalation BID PRN 04/06/25 04/06/25 History (0.083 %) solution for nebulization shortness of breath or wheezing albuterol sulfate 90 mcg/actuation 2 puff inhalation Q4H PRN 04/06/25 History aerosol inhaler shortness of breath or wheezing metoprolol succinate 50 mg 50 mg PO DAILY 04/06/25 04/06/25 H istory tablet,extended release 24 hr niacin PO DAILY 04/06/25 04/06/25 History soybean, fermented 50 mg capsule 50 mg PO BID 04/06/25 04/06/25 His tory (Nattokinase) tramadol 50 mg tablet 50 mg PO BID PRN severe pain 04/0604/06/25 History rivaroxaban 20 mg tablet (Xarelto) 20 mg PO QDAY #30 tabs 05/14/25 Unknown Rx Allergy/AdvReac Type Severity Reaction Status Date / Time celecoxib (From Celebrex) Allergy Shortness Verified 09/07/25 12:51 of breath levofloxacin (From Levaquin) AdvReac Pain in Verified 09/07/25 12:51 joints Family History Mother Asthma Diabetes Heart disease Hypertension CAD (coronary artery disease) COPD (chronic obstructive pulmonary disease) Rheumatoid arthritis Sister Diabetes Heart disease Father , age 44 Sudden cardiac Myocardial infarction Surgical History s/p incision and drainage left shoulder blade abscess ( 08/29/19) Detached retina S/P eye surgery S/P section Social History household members: spouse and children housing: house current occupational status: unemployed Smoking Status: Never smoker second hand exposure: Yes alcohol intake: former what type of physical activity do you participate in: none seatbelt use: always do you feel safe at home: Yes ROS ROS ED ROS Narrative Neurological: Denies any numbness, tingling Skin: Complains of cut to the right leg as noted above EXAM Physical Exam Narrative Exam Narrative: General: Patient lying in bed rest comfortably did not appear to be in acute distress Head: Atraumatic, normocephalic Eyes: PERRL bilaterally, EOMI bilateral, no conjunctival injection or Neck: Soft, supple, trachea midline Cardiovascular: Regular rate Extremities: DP pulses +2/4 in the right lower extremity, patient moving all extremities on exam Neurological: Patient following commands knew that she was at [facility] year is 2024 Skin: Patient has a skin abrasion noted to the right anterior benton and a V shaped this is more of a skin tear nothing to repair. Patient then has a proximately 4 cm laceration on the lateral aspect of her right leg. Mild oozing noted. Const Vital Signs: 09/07/25 12:51 Temperature 96.8 F L Temperature Source Temporal Pulse Rate 89 Respiratory Rate 14 Blood Pressure 199/96 H Blood Pressure Mean 130 Pulse Ox 100 Oxygen Delivery M (more content not included)... Normal [facility] L3410.9992on 05-22-2025 [facility]. COMMENT Normal . [facility] Comment on above: Order Comment: [id number] 8AMINIO ACID PROFILE,GN, PLAZMA Result Comment: Test Ordered: [id number] Amino Acid Profile, Qn, Plasma Test(s) 167668-Legbryz; 372511-Qjtupxkqk; 110157- Hydroxyproline; 513904-Seqrcezxp; 773324-Rwsttx; 963302- Asparagine; 525365-Yajtcduor; 505784-Azpivstzs; 891974- Sarcosine; 099365-Nuxwk-ueqkfnntwtya; 595399-Eskkdof; 199976-Coyoshi; 545996-Fqhkaob; 763648-Txjhwwvjsy; 115861- Alpha-aminobutyrate; 033511-Rrloih; 994761-Cmosmfn; 879666- Methionine; 780650-Gmvdvvizhdiwfm; 324405-Leacqjchdwviy; 543090-Kcsrzxzsalxxid; 838777-Rfsqftnael; 055980-Bvdbton; 833912-Xuuccpoy; 264263-Layyqpkdxepnz; 469712- Argininosuccinate; 766067-Dvkz-tztuzqm; 130314- Beta-aminoisobutyrate; 005352-Xqiwbiyfptn; 756317- Gamma-aminobutyrate; 316418-Nrlitrtadh; 507088- Hydroxylysine; 685085-Elxlffpfw; 214089-Fnuuzj; 070360- Histidine; 876741-Haypmknf was developed and its performance characteristics determined by [employer]. It has not been cleared or approved by the Food and Drug Administration. Taurine 570.2 [H ] umol/L Reference Range: 29.2-132.3 Aspartate 13.0 [H ] umol/L Reference Range: 0.0-7.4 Hydroxyproline 11.1 umol/L Reference Range: 4.7-35.2 Threonine 118.4 umol/L Reference Range: 67.8-211.6 Serine 139.3 umol/L Reference Range: 48.7-145.2 Asparagine 55.4 umol/L Reference Range: 29.5-84.5 Glutamate 170.7 [H ] umol/L Reference Range: 18.1-155.9 Glutamine 417.6 umol/L Reference Range: 372.8-701.4 Sarcosine 1.0 umol/L Reference Range: 0.0-4.0 Alpha-aminoadipate 0.9 umol/L Reference Range: 0.0-1.9 Proline 104.1 umol/L Reference Range: 84.8-352.5 Glycine 263.3 umol/L Reference Range: 144.0-411.0 Alanine 294.9 umol/L Reference Range: 209.2-515.5 Citrulline 20.7 umol/L Reference Range: 15.6-46.9 Alpha-aminobutyrate 23.0 umol/L Reference Range: 5.4-34.5 Valine 226.0 umol/L Reference Range: 133.0-317.1 Cystine 56.1 [H ] umol/L Reference Range: 15.8-47.3 Methionine 26.9 umol/L Reference Range: 14.7-35.2 Homocitrulline 0.7 umol/L Reference Range: 0.0-1.7 Cystathionine <0.5 umol/L Reference Range: 0.0-0.7 Alloisoleucine 1.2 umol/L BN Reference Range: 0.0-3.2 Isoleucine 60.8 umol/L BN Reference Range: 32.8-88.3 Leucine 131.4 umol/L Reference Range: 66.7-165.7 Tyrosine 49.3 umol/L Reference Range: 27.8-83.3 Phenylalanine 77.2 [H ] umol/L Reference Range: 35.8-76.9 Argininosuccinate <0.1 umol/L Reference Range: 0.0-3.0 Beta-alanine 18.7 [H ] umol/L Reference Range: 1.1-9.0 Beta-aminoisobutyrate 5.2 [H ] umol/L BN Reference Range: 0.0-4.3 Homocystine <0.3 umol/L Reference Range: 0.0-0.2 Gamma-aminobutyrate <0.5 umol/L BN Reference Range: 0.0-0.6 Tryptophan 47.3 umol/L BN Reference Range: 23.5-93.0 Hydroxylysine 0.2 umol/L Reference Range: 0.1-0.8 Ornithine 81.0 umol/L Reference Range: 30.1-101.3 Lysine 188.4 umol/L Reference Range: 94.0-278.0 Histidine 33.1 [L ] umol/L Reference Range: 47.2-98.5 Arginine 52.7 umol/L Reference Range: 36.3-119.2 Interpretation Comment TG Reference Range: . Plasma amino acid analysis reveals variations from the normal reference range for several amino acids. The pattern is not suggestive of a specific aminoacidopathy. This pattern may be due to differences in normal metabolism, patient diet, or treatment. Director Review Comment TG Reference Range: . Technical Component analysis performed at [facility] Professional Component interpretation performed by: Laura Bonilla, PhD, [facility] Director, Biochemical Genetics [facility] [address] To discuss these results or other testing for inborn errors of metabolism, please contact our Biochemical Geneticists at [phone] [facility]([phone]), [facility] [employer] Customer Service, [place], [place]. Methodology Comment Reference Range: . Amino acid concentrations were obtained by LC-MS/MS analysis. Performed at: [address] [id number] Resident Program Specialist: Juan Pablo Grady MD, Phone: [phone] Performed at: [facility] [address] [place], [place] [id number] Resident Program Specialist: Regina Montana [facility], Phone: [phone] Performed at: [address] [id number] Resident Program Specialist: Randy Nova PhD, Phone: [phone] Performed By: #### L 100.0100, L500.2500, L501.4021 #### [facility] Laboratory [address] [place], [place], [id number] L3410.9992on 05-20-2025 [facility]. COMMENT Normal . [facility] Comment on above: Order Comment: [id number] 3MAGNESIUM,RBC Result Comment: Test Ordered: [id number] Magnesium, RBC Test(s) 785733-Dkhbkkqvl, RBC was developed and its performance characteristics determined by [facility]. It has not been cleared or approved by the Food and Drug Administration. Magnesium, RBC mg/dL Reference Range: . Test not performed. The required specimen for the test ordered was not received. RECEIVED PLASMA REQUIRES RBC [facility] AT YOUR FACILITY ON 05-20-2025 Performed at: [address] [id number] Resident Program Specialist: Randy Nvoa PhD, Phone: [phone] Performed at: [address] [id number] Resident Program Specialist: Juan Pablo Grady MD, Phone: [phone] Performed By: #### L 100.0100, L500.2500, L501.4021 #### [facility] Laboratory [address] [place], [address] Cardiology Visit Reporton Cardiology Visit Report [facility] [address] [place] [address] OFFICE VISIT Date of Service: 05/14/25 MR#: [id number] Acct: [id number] Name: VICKIE BARLOW Rep #: [id number] : 1965 Provider: LYNDSEY rios Age/Sex: 59/F [place] [facility] Status: Signed HPI HPI History of Present Illness Details: This is a pleasant 59-year-old lady who presents for evaluation of atrial fibrillation. She said that while she was in [place] in November of 2023, she got short of breath very fatigued sometime after she had developed COVID. She went into the hospital and was noted to have pulmonary embolus of the right lung without any evidence of right ventricular strain, as well as new onset atrial fibrillation. She had an echocardiogram performed which demonstrated preserved left ventricular systolic function estimated EF of 55 to 60%. She was put on anticoagulation initially with heparin and then switched to Eliquis and put on Lopressor 25 twice daily. She states she has stopped her Eliquis therapy 3 to 4 months ago due to increased bruising. From a cardiac standpoint, the patient is doing well. She denies any palpitations, chest pain, pressure or heaviness. She denies SOB, Orthopnea, and PND. She does not have bleeding issues; no blood in urine, stool, or nosebleeds. She denies any decrease in energy level, myalgias, or claudication. She does not have edema, or sudden weight gain. She denies lightheadedness, dizziness, syncopal or near syncopal episodes, and headaches. She does monitor her blood pressures at home, which she states the last few days have been a little bit stressful with moving to a different office. Intake Vital Signs 11/05/24 10:22 04/06/25 12:49 05/14/25 13:46 Height 5 ft 3 in 5 ft 3 in 5 ft 3 in Weight: 254 lb BMI 44.9 BP 164/94 H Blood Pressure Location Lt brachial Position Sitting Respiration 18 Pulse 94 Pulse Source Monitor Pulse Oximetry (%) 97 Oxygen Delivery Method room air Intake Visit Reasons: 6 M FU Process Coordinator Required: No Accompanied by: Self Is patient in pain?: No Allergies celecoxib (From Celebrex) Allergy (Verified 05/14/25 13:56) Shortness of breath levofloxacin (From Levaquin) Adverse Reaction (Verified 05/14/25 13:56) Pain in joints Medications ???Medication ???Instructions ???Recorded ???Confirmed ???Type lactobacillus combination no.8 3 3,000 mmu cells PO DAILY 03/07/21 05/14/25 History billion cell capsule (Adult Probiotic) multivitamin (Multiple Vitamins 1 tablet PO DAILY 03/07/21 5 History tablet) methocarbamol 500 mg tablet 500 mg PO BID PRN muscle spasm 05/14/25 History sertraline 50 mg tablet 25 mg PO DAILY 05/16/24 05/14/25 H istory acetaminophen 325 mg capsule 650 mg PO DAILY PRN fever or pain 04/06/25 05/14/25 History albuterol sulfate 2.5 mg/3 mL 2.5 mg inhalation BID PRN 04/06/25 05/14/25 History (0.083 %) solution for nebulization shortness of breath or wheezing albuterol sulfate 90 mcg/actuation 2 puff inhalation Q4H PRN 05/14/25 History aerosol inhaler shortness of breath or wheezing metoprolol succinate 50 mg 50 mg PO DAILY 04/06/25 05/14/25 H istory tablet,extended release 24 hr niacin PO DAILY 04/06/25 05/14/25 History soybean, fermented 50 mg capsule 50 mg PO BID 04/06/25 05/14/25 His tory (Nattokinase) tramadol 50 mg tablet 50 mg PO BID PRN severe pain 04/0605/14/25 History rivaroxaban 20 mg tablet (Xarelto) 20 mg PO QDAY #30 tabs 05/14/25 05/14/25 Rx Have you fallen in the past year?: No PFSH Medical History Hx of pulmonary embolus Atrial fibrillation Atypical chest pain Arthralgia Frequent falls Dysphagia Anxiety Migraine Asthma Vitamin D deficiency Mitral valve prolapse Hypercholesterolemia Psoriasis IBS (irritable bowel syndrome) Diverticulitis Depression Surgical History s/p incision and drainage left shoulder blade abscess ( 08/29/19) Detached retina S/P eye surgery S/P section Family History Mother Asthma Diabetes Heart disease Hypertension CAD (coronary artery disease) COPD (chronic obstructive pulmonary disease) Rheumatoid arthritis Sister Diabetes Heart disease Father , age 44 Sudden cardiac Myocardial infarction Social History household members: spouse and children housing: house current occupational status: unemployed Smoking Status: Never smoker second hand exposure: Yes alcohol intake: former what type of physical activity do you (more content not included)... Normal [facility] CRP, High Sensitivity [id number] on 04-26-2025 CRP, HIGH SENS 8.42 mg/L High 0.00-3.[address] [facility] Comment on above: Result Comment: Rela tive Risk for Future Cardiovascular Event Low <1.00 Average 1.00 - 3.00 High >3.00 Performed at: [facility] [place] [id number] Resident Program Specialist: Randy Nova PhD, Phone: [phone] Performed By: #### L 1000100, L500.2500, L577.4088 #### [facility] Laboratory [employer] [address] [facility] [place], [address] Absolute lymphocyte countOrd ered By: Mary Cobb on 04-24-2025 Lymphocytes Auto (Unsp spec) [#/Vol] 0.53 10*3/uL Low 0.83-4.[address] [facility] Absolute neutrophil countOrd ered By: Mary Cobb on 04-24-2025 Neutrophils (Bld) [#/Vol] 6.1 10*3/uL 2.0-7.[address] [facility] Anion gap in Serum or Plasma Ordered By: Mary Cobb on 04-24-2025 Anion gap [Moles/Vol] 14 mmol/L 5-15 [facility] Automated blood erythrocyte countOrdered By: Mary Cobb on 04-24-2025 RBC (Bld) [#/Vol] 4.32 10*6/uL Normal 4.2-5.4 [facility] Comment on above: Performed By: #### L 100.0100, L500.2500, L501.4021 #### [facility] Laboratory [address] [place], [address] Automated blood hematocrit ( percentage)Ordered By: Mary Cobb on 04-24-2025 Hematocrit (Bld) [Volume fraction] 42.1 % Normal 37-[address] [facility] Comment on above: Performed By: #### L 100.0100, L500.2500, L501.4021 #### [facility] Laboratory [address] [place], [address] Automated lymphocyte count a s percentage of total leukocytesOrdered By: Mary Cobb on 04-24-2025 Lymphocytes/100 WBC Auto (Unsp spec) 6.6 % Low 19-[address] [facility] BUN/creatinine ratioOrdered By: Mary Cobb on 04-24-2025 Urea nitrogen/Creatinine [Mass ratio] 16.0 mg/mg 10-[address] [facility] Basophil percentageOrdered B y: Mary Cobb on 04-24-2025 Basophils/100 WBC (Bld) 1.1 % High 0-[address] [facility] Comment on above: Performed By: #### L 100.0100, L500.2500, L501.4021 #### [facility] Laboratory [address] [place], [address] Bilirubin, totalOrdered By: Mary Cobb on 04-24-2025 Bilirubin [Mass/Vol] 0.63 mg/dL 0.00-1.30 [facility] C-reactive protein measureme nt by high sensitivity methodOrdered By: Mary Cobb on 04-24-2025 C-reactive protein measurement by high sensitivity method 8.42 mg/L High 0.00-3.[address] [facility] Comment on above: Relative Risk for Fu ture Cardiovascular Event Low <1.00 Average 1.00 - 3.00 High >3.00Performed at: CB - [facility] [address] [place], [place] [id number] Director: Randy Nova PhD, Phone: [phone] CBC W/Diff, Automatedon 05 0-2024 Absolute Lymph 0.53 X10 3/uL Low 0.83-4.[address] [facility] Comment on above: Performed By: #### L 100.0100, L500.2500, L501.4021 #### [facility] Laboratory [address] [place], [address] Absolute Neut 6.1 X10 3/uL Normal 2.0-7.[address] [facility] Comment on above: Performed By: #### L 100.0100, L500.2500, L501.4021 #### [facility] Laboratory [address] [place], [address] IG% 0.200 Normal 0.0-0.[address] [facility] Comment on above: Result Comment: IG% - Immature Granulocytes (promyelocytes, myelocytes and metamyelocytes) > 1% indicates that a LEFT SHIFT is Present. Performed By: #### L 100.0100, L500.2500, L501.4021 #### [facility] [address] [place], [address] Lymphocytes/100 WBC (Bld) 6.6 % Low 19-[address] [facility] Comment on above: Performed By: #### L 100.0100, L500.2500, L501.4021 #### [facility] [address] [place], [address] Nucleated RBC (Bld) [#/Vol] 0 10*3/uL Normal 0-[address] [facility] Comment on above: Performed By: #### L 100.0100, L500.2500, L501.4021 #### [facility] [address] [place], [address] RDW SD 49.7 fl High 35.1-43.[address] [facility] Comment on above: Performed By: #### L 100.0100, L500.2500, L501.4021 #### [facility] [address] [place], [address] CRPon 04-24-2025 C-REACTIVE PROT 11.80 mg/L High 0.0-3.[address] [facility] Comment on above: Performed By: #### L 100.0100, L500.2500, L501.4021 #### [facility] [address] [place], [address] Carbon dioxide, total [Moles /volume] in Central venous bloodOrdered By: Mary Cobb on 04-24-2025 CO2 [Moles/Vol] 23.1 mmol/L 21.0-32.[address] [facility] Chloride assayOrdered By: Lewis Cobb on 04-24-2025 Chloride [Moles/Vol] 97 mmol/L Low 98-108 [facility] Comprehensive Metabolic Prof ilon 04-24-2025 Albumin [Mass/Vol] 4.2 g/dL Normal 3.4-4.8 [facility] Comment on above: Result Comment: AMENDED REPORT 04/24/251736 ALB previously reported as: 0.4 L g/dL Performed By: #### L 100.0100, L500.2500, L501.4021 #### [facility] [address] [place], [address] Albumin/Globulin [Mass ratio] 2.7 {ratio} High 0.9-2.[address] [facility] Comment on above: Result Comment: AMENDED REPORT 04/24/251736 A/G previously reported as: 0.1 L RATIO Performed By: #### L 100.0100, L500.2500, L501.4021 #### [facility] Laboratory [address] [place], [address] Globulin (S) [Mass/Vol] 1.6 g/dL Low 2.2-4.[address] [facility] Comment on above: Result Comment: AMENDED REPORT 04/24/25 1737 GLOB previously reported as: 5.3 H g/dL Performed By: #### L 100.0100, L500.2500, L501.4021 #### [facility] [address] [place], [address] Eosinophil percentageOrdered By: Mary Cobb on 04-24-2025 Eosinophils/100 WBC (Bld) 9.5 % High 0-[address] [facility] Comment on above: Performed By: #### L 100.0100, L500.2500, L501.4021 #### [facility] [address] [place], [address] Erythrocyte Sed Rateon 04-24 SED RATE 18 mm/hr Normal 0-[address] [facility] Comment on above: Performed By: #### L 100.0100, L500.2500, L501.4021 #### [facility] [address] [place], [address] Erythrocyte distribution wid th ratioOrdered By: Mary Cobb on 04-24-2025 Erythrocyte distribution width (RBC) [Ratio] 14.0 % Normal 11.6-14.[address] [facility] Comment on above: Performed By: #### L 100.0100, L500.2500, L501.4021 #### [facility] [address] [place], [address] Erythrocyte distribution wid th standard deviationOrdered By: Mary Cobb on 04-24-2025 Erythrocyte distribution width (RBC) [Ratio] 49.7 fl High 35.1-43.[address] [facility] Erythrocyte sedimentation ra teOrdered By: Mary Cobb on 04-24-2025 ESR (Bld) [Velocity] 18 mm/h 0-30 [facility] Glomerular filtration rate ( GFR) estimation/1.73 sq m using serum, plasma, or whole bOrdered By: Mary Cobb on 04-24-2025 GFR/1.73 sq M.predicted among non-blacks MDRD (S/P/Bld) [Vol rate/Area] 86 mL/min/{1.73_m2} >[address] [facility] Comment on above: mL/min/1.73m2 CKD-EP I Creatinine Equation (2020) Hemoglobin measurementOrdere d By: Mary Cobb on 04-24-2025 Hemoglobin (Bld) [Mass/Vol] 13.6 g/dL Normal 12.0-15.[address] [facility] Comment on above: Performed By: #### L 100.0100, L500.2500, L501.4021 #### [facility] [address] [place], [address] Immature granulocytes/100 WB C Auto (Bld)Ordered By: Mary Cobb on 04-24-2025 Immature granulocytes/100 WBC (Bld) 0.200 % 0.0-0.[address] [facility] Comment on above: IG% - Immature Granu locytes (promyelocytes, myelocytes and metamyelocytes) > 1% indicates that a LEFT SHIFT is Present. Laboratory - Chemistry and C hemistry - challengeOrdered By: Mary Cobb on 04-24-2025 AST [Catalytic activity/Vol] 39 U/L High <[address] [facility] MCV (mean corpuscular volume ) determinationOrdered By: Mary Cobb on 04-24-2025 MCV (RBC) [Entitic vol] 97.5 fL Normal 81-[address] [facility] Comment on above: Performed By: #### L 100.0100, L500.2500, L501.4021 #### [facility] [address] [place], [address] Magnesiumon 04-24-2025 Magnesium [Mass/Vol] 2.4 mg/dL High 1.5-2.2 [facility] Comment on above: Performed By: #### L 501.5200, L500.4050 #### [facility] [address] [place], [address] Magnesium measurement (mass/ volume)Ordered By: Mary Cobb on 04-24-2025 Magnesium (Unsp spec) [Mass/Vol] 2.4 mg/dL High 1.5-2.[address] [facility] Mean corpuscular hemoglobin (MCH) determinationOrdered By: Mary Cobb on 04-24-2025 MCH (RBC) [Entitic mass] 31.5 pg Normal 27.0-32.[address] [facility] Comment on above: Performed By: #### L 100.0100, L500.2500, L501.4021 #### [facility] [address] [place], [address] Mean corpuscular hemoglobin concentration (MCHC) determinationOrdered By: Mary Cobb on 04-24-2025 MCHC (RBC) [Mass/Vol] 32.3 g/dL Normal 32-36 [facility] Comment on above: Performed By: #### L 100.0100, L500.2500, L501.4021 #### [facility] [address] [place], [address] Mean platelet volume determi nationOrdered By: Mary Cobb on 04-24-2025 Platelet mean volume (Bld) [Entitic vol] 11.2 fL Normal 6.2-12.[address] [facility] Comment on above: Performed By: #### L 100.0100, L500.2500, L501.4021 #### [facility] [address] [place], [address] Monocyte percentageOrdered B y: Mary oCbb on 04-24-2025 Monocytes/100 WBC (Bld) 7.2 % Normal 0-[address] [facility] Comment on above: Performed By: #### L 100.0100, L500.2500, L501.4021 #### [facility] [address] [place], [address] Neutrophil percentageOrdered By: Mary Cobb on 04-24-2025 Neutrophils/100 WBC (Bld) 75.4 % High 47-[address] [facility] Comment on above: Performed By: #### L 100.0100, L500.2500, L501.4021 #### [facility] [address] [place], [address] Nucleated red blood cell per centageOrdered By: Mary Cobb on 04-24-2025 Nucleated RBC/100 WBC (Bld) [Ratio] 0 % 0-[address] [facility] Platelet countOrdered By: Lewis Cobb on 04-24-2025 Platelets (Bld) [#/Vol] 260 10*3/uL Normal 150-[address] [facility] Comment on above: Performed By: #### L 100.0100, L500.2500, L501.4021 #### [facility] [address] [place], [address] Potassium measurement (mass/ volume)Ordered By: Mary Cobb on 04-24-2025 Potassium (Unsp spec) [Mass/Vol] 4.8 mmol/L 3.3-5.[address] [facility] Serum creatinine measurement (mass/volume)Ordered By: Mary Cobb on 04-24-2025 Creatinine [Mass/Vol] 0.79 mg/dL 0.70-1.20 [facility] Serum globulin measurementOr dered By: Mary Cobb on 04-24-2025 Globulin (S) [Mass/Vol] 1.6 g/dL Low 2.2-4.[address] [facility] Comment on above: Previous reported re sult: 5.3 g/dLEdited by: JAIR on 04/24/25:1737 AMENDED REPORT 04/24/25 1737 GLOB previously reported as: 5.3 H g/dL Serum glucose measurement (m ass/volume)Ordered By: Mary Cobb on 04-24-2025 Glucose [Mass/Vol] 76 mg/dL 70-99 [facility] Serum or plasma C reactive p rotein measurement (mass/volume)Ordered By: Mary Cobb on 04-24-2025 CRP [Mass/Vol] 11.80 mg/L High 0.0-3.[address] [facility] Serum or plasma alanine lan otransferase (ALT) measurementOrdered By: Mary Cobb on 04-24-2025 ALT [Catalytic activity/Vol] 34 U/L <[address] [facility] Serum or plasma albumin yuliya urement (mass/volume)Ordered By: Mary Cobb on 04-24-2025 Albumin [Mass/Vol] 4.2 g/dL 3.4-4.8 [facility] Comment on above: Previous reported re sult: 0.4 g/dLEdited by: YUMIKOS on 04/24/25:1737 AMENDED REPORT 04/24/251736 ALB previously reported as: 0.4 L g/dL Serum or plasma albumin/glob ulin mass ratioOrdered By: Mary Cobb on 04-24-2025 Albumin/Globulin [Mass ratio] 2.7 {ratio} High 0.9-2.[address] [facility] Comment on above: Previous reported re sult: 0.1 RATIOEdited by: JAIR on 04/24/25:1737 AMENDED REPORT 04/24/251736 A/G previously reported as: 0.1 L RATIO Serum or plasma alkaline deya sphatase measurementOrdered By: Mary Cobb on 04-24-2025 ALP [Catalytic activity/Vol] 64 U/L 35-[address] [facility] Serum or plasma calcium yuliya urement (mass/volume)Ordered By: Mary Cobb on 04-24-2025 Calcium [Mass/Vol] 9.6 mg/dL 7.6-11.0 [facility] Serum or plasma urea nitroge n measurement (mass/volume)Ordered By: Mary Cobb on 04-24-2025 Urea nitrogen [Mass/Vol] 13 mg/dL 4-[address] [facility] Sodium levelOrdered By: Jose Elias Cobb on 04-24-2025 Sodium [Moles/Vol] 135 mmol/L 133-145 [facility] Total proteinOrdered By: Zoya Cobb on 04-24-2025 Protein [Mass/Vol] 5.7 g/dL Low 5.9-8.4 [facility] White blood cell (WBC) count Ordered By: Mary Cobb on 04-24-2025 WBC (Bld) [#/Vol] 8.0 10*3/uL Normal 4.4-11.0 [facility] Comment on above: Performed By: #### L 100.0100, L500.2500, L501.4021 #### [facility] Laboratory [address] [place], [address] 12 Lead EKGon 04-06-2025 12 Lead EKG [facility] Cardiovascular Services [address] [place] [address] 12 Lead EKG 04/06/25 1404 MR#: [id number] Acct: [id number] Name: VICKIE BARLOW Rep #: [id number] : 1965 59 From: Winston Amos MD Attending Dr: Status: DEP ER Ordering Dr: Shawn Soni MD Date: 04/06/25 Location: ED Sex: F C Admitted: Test Reason : GENERAL Blood Pressure : */* mmHG Vent. Rate : 94 BPM Atrial Rate : * BPM P-R Int : * ms QRS Dur : 78 ms QT Int : 350 ms P-R-T Axes : * 13 29 degrees QTcB Int : 437 ms Atrial fibrillation Low voltage QRS Abnormal ECG Confirmed by Winston Amos ([id number]), magazine editor EMILIANO GREEN ([id number]) on 04/07/2025 9:10:08 AM Referred By: Confirmed By: Winston Amos 04/07/25 0910 Date Winston Amos MD CC: LYNDSEY Cobb; Dr. Shawn Soni MD Signed Normal [facility] Absolute lymphocyte countOrd ered By: ED PROVIDER on 04-06-2025 Lymphocytes Auto (Unsp spec) [#/Vol] 0.74 10*3/uL Low 0.83-4.[address] [facility] Absolute neutrophil countOrd ered By: ED PROVIDER on 04-06-2025 Neutrophils (Bld) [#/Vol] 4.9 10*3/uL 2.0-7.[address] [facility] Anion gap in Serum or Plasma Ordered By: ED PROVIDER on 04-06-2025 Anion gap [Moles/Vol] 13 mmol/L - [facility] Automated lymphocyte count a s percentage of total leukocytesOrdered By: ED PROVIDER on 04-06-2025 Lymphocytes/100 WBC Auto (Unsp spec) 10.9 % Low [facility] BUN/creatinine ratioOrdered By: ED PROVIDER on 04-06-2025 Urea nitrogen/Creatinine [Mass ratio] 20.0 mg/mg - [facility] Basic Metabolic Profile (BMP )on 04-06-2025 BUN/CRE 20.0 RATIO Normal 09-[address] [facility] Comment on above: Performed By: #### L 100.0100, L500.2500, L501.4021 #### [facility] Laboratory [address] [place], [address] Calcium [Mass/Vol] 9.2 mg/dL Normal 7.6-11.0 [facility] Comment on above: Performed By: #### L 100.0100, L500.2500, L501.4021 #### [facility] Laboratory [address] [place], [address] Chloride [Moles/Vol] 104 mmol/L Normal 98-108 [facility] Comment on above: Performed By: #### L 100.0100, L500.2500, L501.4021 #### [facility] [address] [place], [address] CO2 [Moles/Vol] 21.6 mmol/L Normal 21.0-32.[address] [facility] Comment on above: Performed By: #### L 100.0100, L500.2500, L501.4021 #### [facility] [address] [place], [address] Creatinine [Mass/Vol] 0.74 mg/dL Normal 0.70-1.20 [facility] Comment on above: Performed By: #### L 100.0100, L500.2500, L501.4021 #### [facility] [address] [place], [address] ECRCL 101.59 ml/min Normal 50-[address] [facility] Comment on above: Performed By: #### L 100.0100, L500.2500, L501.4021 #### [facility] [address] [place], [address] GAP 13 Normal 5-[address] [facility] Comment on above: Performed By: #### L 100.0100, L500.2500, L501.4021 #### [facility] [address] [place], [address] GFR/1.73 sq M.predicted among non-blacks MDRD (S/P/Bld) [Vol rate/Area] 93 mL/min/{1.73_m2} Normal >[address] [facility] Comment on above: Result Comment: mL/m in/1.73m2 CKD-EPI Creatinine Equation (2020) Performed By: #### L 100.0100, L500.2500, L501.4021 #### [facility] [address] [place], [address] Glucose [Mass/Vol] 99 mg/dL Normal 70-99 [facility] Comment on above: Performed By: #### L 100.0100, L500.2500, L501.4021 #### [facility] [address] [place], [address] Potassium [Moles/Vol] 4.6 mmol/L Normal 3.3-5.1 [facility] Comment on above: Result Comment: Hemo lysis present, Results??could be affected. ?? Performed By: #### L 100.0100, L500.2500, L501.4021 #### [facility] [address] [place], [address] Sodium [Moles/Vol] 138 mmol/L Normal 133-145 [facility] Comment on above: Performed By: #### L 100.0100, L500.2500, L501.4021 #### [facility] [address] [place], [address] Urea nitrogen [Mass/Vol] 15 mg/dL Normal 4-[address] [facility] Comment on above: Performed By: #### L 100.0100, L500.2500, L501.4021 #### [facility] [address] [place], [address] Basophil percentageOrdered B y: ED PROVIDER on 04-06-2025 Basophils/100 WBC (Bld) 1.0 % 0-[address] [facility] CBC W/Diff, Automatedon 03-26 Absolute Lymph 0.74 X10 3/uL Low 0.83-4.[address] [facility] Comment on above: Performed By: #### L 100.0100, L500.2500, L501.4021 #### [facility] [address] [place], [address] Absolute Neut 4.9 X10 3/uL Normal 2.0-7.[address] [facility] Comment on above: Performed By: #### L 100.0100, L500.2500, L501.4021 #### [facility] [address] [place], [address] Basophils/100 WBC (Bld) 1.0 % Normal 0-[address] [facility] Comment on above: Performed By: #### L 100.0100, L500.2500, L501.4021 #### [facility] [address] [place], [address] Eosinophils/100 WBC (Bld) 6.1 % High 0-[address] [facility] Comment on above: Performed By: #### L 100.0100, L500.2500, L501.4021 #### [facility] [address] [place], [address] Erythrocyte distribution width (RBC) [Ratio] 13.8 % Normal 11.6-14.[address] [facility] Comment on above: Performed By: #### L 100.0100, L500.2500, L501.4021 #### [facility] [address] [place], [address] Hematocrit (Bld) [Volume fraction] 40.6 % Normal 37-[address] [facility] Comment on above: Performed By: #### L 100.0100, L500.2500, L501.4021 #### [facility] [address] [place], [address] Hemoglobin (Bld) [Mass/Vol] 13.3 g/dL Normal 12.0-15.[address] [facility] Comment on above: Performed By: #### L 100.0100, L500.2500, L501.4021 #### [facility] [address] [place], [address] IG% 0.100 Normal 0.0-0.[address] [facility] Comment on above: Result Comment: IG% - Immature Granulocytes (promyelocytes, myelocytes and metamyelocytes) > 1% indicates that a LEFT SHIFT is Present. Performed By: #### L 100.0100, L500.2500, L501.4021 #### [facility] [address] [place], [address] Lymphocytes/100 WBC (Bld) 10.9 % Low 19-[address] [facility] Comment on above: Performed By: #### L 100.0100, L500.2500, L501.4021 #### [facility] [address] [place], [address] MCH (RBC) [Entitic mass] 31.1 pg Normal 27.0-32.[address] [facility] Comment on above: Performed By: #### L 100.0100, L500.2500, L501.4021 #### [facility] [address] [place], [address] MCHC (RBC) [Mass/Vol] 32.8 g/dL Normal 32-36 [facility] Comment on above: Performed By: #### L 100.0100, L500.2500, L501.4021 #### [facility] [address] [place], [address] MCV (RBC) [Entitic vol] 94.9 fL Normal 81-[address] [facility] Comment on above: Performed By: #### L 100.0100, L500.2500, L501.4021 #### [facility] [address] [place], [address] Monocytes/100 WBC (Bld) 9.6 % Normal 0-[address] [facility] Comment on above: Performed By: #### L 100.0100, L500.2500, L501.4021 #### [facility] [address] [place], [address] Neutrophils/100 WBC (Bld) 72.3 % High 47-[address] [facility] Comment on above: Performed By: #### L 100.0100, L500.2500, L501.4021 #### [facility] [address] [place], [address] Nucleated RBC (Bld) [#/Vol] 0 10*3/uL Normal 0-[address] [facility] Comment on above: Performed By: #### L 100.0100, L500.2500, L501.4021 #### [facility] [address] [place], [address] Platelet mean volume (Bld) [Entitic vol] 10.1 fL Normal 6.2-12.[address] [facility] Comment on above: Performed By: #### L 100.0100, L500.2500, L501.4021 #### [facility] [address] [place], [address] Platelets (Bld) [#/Vol] 247 10*3/uL Normal 150-[address] [facility] Comment on above: Performed By: #### L 100.0100, L500.2500, L501.4021 #### [facility] [address] [place], [address] RBC (Bld) [#/Vol] 4.28 10*6/uL Normal 4.2-5.4 [facility] Comment on above: Performed By: #### L 100.0100, L500.2500, L501.4021 #### [facility] [address] [place], [address] RDW SD 48.0 fl High 35.1-43.[address] [facility] Comment on above: Performed By: #### L 100.0100, L500.2500, L501.4021 #### [facility] [address] [place], [address] WBC (Bld) [#/Vol] 6.8 10*3/uL Normal 4.4-11.0 [facility] Comment on above: Performed By: #### L 100.0100, L500.2500, L501.4021 #### [facility] Laboratory [address] [place], [address] CTA Chest W/WO Contraston CTA Chest W/WO Contrast [facility] Imaging Services [address] [place] [address] CTA Chest W/WO Contrast MR#: [id number] Acct: [id number] Name: VICKIE BARLOW Rep #: [id number] : 1965 F 59 From: Rubio Bartlett MD PCP: Mary Cobb, CORE JAVA ENGINEER-C Status: [facility] ER Study: CTA Chest W/WO Contrast Date of Exam: 04/06/25 Exam# [id number] Ordering Dr: Shawn Soni MD EXAM: CT Angiography Chest Without and With Intravenous Contrast CLINICAL INDICATION: SOB, ELEVATED D-DIMER TECHNIQUE: Axial computed tomographic angiography images of the chest without and with intravenous contrast. This CT exam was performed using one or more of the following dose reduction techniques: automated exposure control, adjustment of the mA and/or kV according to patient size, and/or use of iterative reconstruction technique. MIP reconstructed images were created and reviewed. COMPARISON: No relevant prior studies available. FINDINGS: LIMITATIONS: Suboptimal opacification of the pulmonary arteries. PULMONARY ARTERIES: No pulmonary embolism is identified. Some of the distal pulmonary arteries cannot be evaluated due to suboptimal opacification. AORTA: No acute findings. No thoracic aortic aneurysm. LUNGS AND PLEURAL SPACES: Unremarkable. No mass. No consolidation. No significant effusion. No pneumothorax. HEART: Unremarkable. No cardiomegaly. No significant pericardial effusion. No evidence of RV dysfunction. BONES/JOINTS: No acute fracture. No dislocation. SOFT TISSUES: Unremarkable. LYMPH NODES: Unremarkable. No enlarged lymph nodes. CT/CTA Chest W/WO Contrast IMPRESSION: No pulmonary embolism is identified. Some of the distal pulmonary arteries cannot be evaluated due to suboptimal opacification. Reading Location: [facility] CC: CORE JAVA ENGINEER-C Mary Cobb; Dr. Shawn Soni MD Golf Ball Cover Treater: Signed Normal [facility] Carbon dioxide, total [Moles /volume] in Central venous bloodOrdered By: ED PROVIDER on 04-06-2025 CO2 [Moles/Vol] 21.6 mmol/L 21.0-32.[address] [facility] Chest PA and Lateralon 04-06 Chest PA and Lateral [facility] Imaging Services [address] [place] [address] [id number] Chest PA and Lateral MR#: [id number] Acct: [id number] Name: VICKIE BARLOW Rep #: [id number] : 1965 F 59 From: Chan Gipson MD PCP: Mary Cobb, CORE JAVA ENGINEERRoseannaC Status: PRE ER Study: Chest PA and Lateral Date of Exam: 04/06/25 Exam# [id number] Ordering Dr: Kalia,Ed P. PROCEDURE: CHEST PA AND LATERAL 04/06/2025 REASON FOR EXAM: SOB TECHNIQUE: Frontal and lateral views of the chest. COMPARISON: None FINDINGS: Heart size and mediastinal configuration are within normal limits. There is no focal infiltrate or consolidation. There is no pneumothorax or effusion. Aortic calcifications are visible. There is no visible acute bony abnormality. RAD/Chest PA and Lateral IMPRESSION: No acute process is identified in the chest. Reading Location: [facility] CC: CORE JAVA ENGINEER-C Mary Cobb; ED PHYSICIAN PROVIDER Golf Ball Cover Treater: Signed Normal [facility] [facility] Chloride assayOrdered By: ED PROVIDER on 04-06-2025 Chloride [Moles/Vol] 104 mmol/L 98-108 [facility] D-Dimer Quantitative (DVT/PE )on 04-06-2025 D-DIMER QUANT 1.66 FEU/ug/m Invalid Interpretation Code 0.27-0.[address] [facility] Comment on above: Order Comment: CRITI NELIDA VALUE CALLED TO DIIGSV45/12/25 1418 Aida Guy.RESULTS READ BACK BY SAME. Result Comment: D-Di brayden ELEVATED (>0.49): Additional studies and clinical assessments are indicated to conclude diagnosis of: Deep Vein Thrombosis (DVT) or Pulmonary Embolism (PE) Performed By: #### L 3410.9999, L501.6710, L101.9900, L100.0100, L3100.5475, L500.4050 #### [facility] [address] [place], [address] Emergency Department Summary on 04-06-2025 Emergency Department Summary [facility] Medical Records Department [address] [place] [address] Emergency Department Summary 04/06/25 MR#: [id number] Acct: [id number] Name: VICKIE BARLOW Rep #: [id number] : 1965 59 From: Shawn Soni MD PCP: Mary Cobb, [employer] ENGINEER-C Status:REG ER Location: ED HPI History of Present Illness Chief Complaint: Shortness of Breath Informant: patient Narrative Narrative: 59-year-old female history of mild intermittent asthma states she has been dealing with pneumonia for the past month and being cared for down in [place]. She was on antibiotics for a while but still was having issues, so now she is on day #6/10 of compounded nebulized meropenem for this. She has an albuterol inhaler that she is using for rescue, she started getting short of breath/wheezy yesterday with some coughing with bronchospasm and mild chest tightness the day or 2 before that. No fevers or chills. Cough is occasionally productive. No blood. No change in chronic leg swelling. 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 However since yesterday she is wheezing a lot and it is worse. She went to her PCP today and due to this had a D-dimer. It is elevated. She states the dyspnea was better when she used her albuterol inhaler but not enough to be asymptomatic. She states she does not get asthma flareups very often but has been diagnosed with asthma since she was young. [facility] Medical History Hx of pulmonary embolus Atrial fibrillation Atypical chest pain Arthralgia Frequent falls Dysphagia Anxiety Migraine Asthma Vitamin D deficiency Mitral valve prolapse Hypercholesterolemia Psoriasis IBS (irritable bowel syndrome) Diverticulitis Depression Home Medications ???Medication ???Instructions ???Recorded ???Last Taken ???Type lactobacillus combination no.8 3 3,000 mmu cells PO DAILY 03/07/21 Unknown History billion cell capsule (Adult Probiotic) multivitamin (Multiple Vitamins 1 tablet PO DAILY 03/07/21 5 History tablet) methocarbamol 500 mg tablet 500 mg PO BID PRN muscle spasm Unknown History sertraline 50 mg tablet 25 mg PO DAILY 05/16/24 04/06/25 H istory MEROPENEM BID 04/06/25 Unknown History acetaminophen 325 mg capsule 650 mg PO DAILY PRN fever or pain 04/06/25 04/06/25 History albuterol sulfate 2.5 mg/3 mL 2.5 mg inhalation BID PRN 04/06/25 04/06/25 History (0.083 %) solution for nebulization shortness of breath or wheezing albuterol sulfate 90 mcg/actuation 2 puff inhalation Q4H PRN 04/06/25 History aerosol inhaler shortness of breath or wheezing meloxicam 7.5 mg tablet 7.5 mg PO DAILY 04/06/25 04/05/25 History metoprolol succinate 50 mg 50 mg PO DAILY 04/06/25 04/06/25 H istory tablet,extended release 24 hr niacin PO DAILY 04/06/25 04/06/25 History prednisone 20 mg tablet 40 mg (2 x 20 mg) PO DAILY 6 days 04/06/25 Unknown Rx #12 tabs soybean, fermented 50 mg capsule 50 mg PO BID 04/06/25 04/06/25 His tory (Nattokinase) tramadol 50 mg tablet 50 mg PO BID PRN severe pain 04/0604/06/25 History Allergy/AdvReac Type Severity Reaction Status Date / Time celecoxib (From Celebrex) Allergy Shortness Verified 04/06/25 12:49 of breath levofloxacin (From Levaquin) AdvReac Pain in Verified 04/06/25 12:49 joints Family History Mother Asthma Diabetes Heart disease Hypertension CAD (coronary artery disease) COPD (chronic obstructive pulmonary disease) Rheumatoid arthritis Sister Diabetes Heart disease Father , age 44 Sudden cardiac Myocardial infarction Surgical History s/p incision and drainage left shoulder blade abscess ( 08/29/19) Detached retina S/P eye surgery S/P section Social History household members: spouse and children housing: house current occupational status: unemployed Smoking Status: Never smoker second hand exposure: Yes alcohol intake: former what type of physical activity do you participate in: none seatbelt use: always do you feel safe at home: Yes ROS ROS ED Constitutional Constitutional ED: Denies chills or fever(s) Eyes Eyes: Denies change in vision or diplopia ENT ENT ED: Denies rhinorrhea or sore throat Cardiovascular Cardiovascular: Reports easily tiring during activity; Denies chest pain, orthostatic symptoms, palpitations or syncope Respiratory/Chest Respiratory/Chest: Reports as per HPI, chest tightness, c (more content not included)... Normal [facility] Eosinophil percentageOrdered By: ED PROVIDER on 04-06-2025 Eosinophils/100 WBC (Bld) 6.1 % High 0-[address] [facility] Erythrocyte distribution wid th ratioOrdered By: ED PROVIDER on 04-06-2025 Erythrocyte distribution width (RBC) [Ratio] 13.8 % 11.6-14.[address] [facility] Erythrocyte distribution wid th standard deviationOrdered By: ED PROVIDER on 04-06-2025 Erythrocyte distribution width (RBC) [Ratio] 48.0 fl High 35.1-43.[address] [facility] Glomerular filtration rate ( GFR) estimation/1.73 sq m using serum, plasma, or whole bOrdered By: ED PROVIDER on 04-06-2025 GFR/1.73 sq M.predicted among non-blacks MDRD (S/P/Bld) [Vol rate/Area] 93 mL/min/{1.73_m2} >[address] [facility] Comment on above: mL/min/1.73m2 CKD-EP I Creatinine Equation (2020) Hematocrit Auto (Bld) [Volum e fraction]Ordered By: ED PROVIDER on 04-06-2025 Hematocrit (Bld) [Volume fraction] 40.6 % 37-[address] [facility] Hemoglobin measurementOrdere d By: ED PROVIDER on 04-06-2025 Hemoglobin (Bld) [Mass/Vol] 13.3 g/dL 12.0-15.[address] [facility] Immature granulocytes/100 WB C Auto (Bld)Ordered By: ED PROVIDER on 04-06-2025 Immature granulocytes/100 WBC (Bld) 0.100 % 0.0-0.[address] [facility] Comment on above: IG% - Immature Granu locytes (promyelocytes, myelocytes and metamyelocytes) > 1% indicates that a LEFT SHIFT is Present. L499.0042on 04-06-2025 Trop T High Sen 23 ng/L High <=[address] [facility] Comment on above: Performed By: #### L 100.0100, L500.2500, L501.4021 #### [facility] [address] [place], [place], [address] L499.0043on 04-06-2025 Trop T High Sen 29 ng/L High <=[address] [facility] Comment on above: Performed By: #### L 100.0100, L500.2500, L501.4021 #### [facility] [address] [place], [address] L501.4021on 04-06-2025 Trop T High Sen 28 ng/L High <=[address] [facility] Comment on above: Result Comment: Hemo lysis present, Results??could be affected. ?? Performed By: #### L 100.0100, L500.2500, L501.4021 #### [facility] [address] [place], [address] L503.7505on 04-06-2025 Natriuretic peptide B (Bld) [Mass/Vol] 2830 pg/mL High <=[address] [facility] Comment on above: Result Comment: Hear t Failure Unlikely: < 300 pg/mL Heart Failure Likely < 50 Years: > 450 pg/mL 50-75 Years: > 900 pg/mL >75 Years: > 1800 pg/mL Performed By: #### L 100.0100, L500.2500, L501.4021 #### [facility] [address] [place], [address] MCV (mean corpuscular volume ) determinationOrdered By: ED PROVIDER on 04-06-2025 MCV (RBC) [Entitic vol] 94.9 fL 81-[address] [facility] Mean corpuscular hemoglobin (MCH) determinationOrdered By: ED PROVIDER on 04-06-2025 MCH (RBC) [Entitic mass] 31.1 pg 27.0-32.[address] [facility] Mean corpuscular hemoglobin concentration (MCHC) determinationOrdered By: ED PROVIDER on 04-06-2025 MCHC (RBC) [Mass/Vol] 32.8 g/dL 32-36 [facility] Mean platelet volume determi nationOrdered By: ED PROVIDER on 04-06-2025 Platelet mean volume (Bld) [Entitic vol] 10.1 fL 6.2-12.[address] [facility] Monocyte percentageOrdered B y: ED PROVIDER on 04-06-2025 Monocytes/100 WBC (Bld) 9.6 % 0-[address] [facility] Natriuretic peptide.B prohor juana N-Terminal [Mass/volume] in Serum or PlasmaOrdered By: Shawn Soni on 04-06-2025 Natriuretic peptide.B prohormone N-Terminal [Mass/Vol] 2830 pg/mL High <[address] [facility] Comment on above: Heart Failure Unlike ly: < 300 pg/mLHeart Failure Likely< 50 Years: > 450 pg/mL50-75 Years: > 900 pg/mL>75 Years: > 1800 pg/mL Neutrophil percentageOrdered By: ED PROVIDER on 04-06-2025 Neutrophils/100 WBC (Bld) 72.3 % High 47-[address] [facility] Nucleated red blood cell per centageOrdered By: ED PROVIDER on 04-06-2025 Nucleated RBC/100 WBC (Bld) [Ratio] 0 % 0-[address] [facility] Platelet countOrdered By: ED PROVIDER on 04-06-2025 Platelets (Bld) [#/Vol] 247 10*3/uL 150-[address] [facility] Potassium measurement (mass/ volume)Ordered By: ED PROVIDER on 04-06-2025 Potassium (Unsp spec) [Mass/Vol] 4.6 mmol/L 3.3-5.[address] [facility] Comment on above: Hemolysis present, R esults could be affected. RBC Auto (Bld) [#/Vol]Ordere d By: ED PROVIDER on 04-06-2025 RBC (Bld) [#/Vol] 4.28 10*6/uL 4.2-5.4 [facility] Serum creatinine measurement (mass/volume)Ordered By: ED PROVIDER on 04-06-2025 Creatinine [Mass/Vol] 0.74 mg/dL 0.70-1.20 [facility] Serum glucose measurement (m ass/volume)Ordered By: ED PROVIDER on 04-06-2025 Glucose [Mass/Vol] 99 mg/dL 70-99 [facility] Serum or plasma calcium yuliya urement (mass/volume)Ordered By: ED PROVIDER on 04-06-2025 Calcium [Mass/Vol] 9.2 mg/dL 7.6-11.0 [facility] Serum or plasma urea nitroge n measurement (mass/volume)Ordered By: ED PROVIDER on 04-06-2025 Urea nitrogen [Mass/Vol] 15 mg/dL 4-[address] [facility] Sodium levelOrdered By: ED Melissa LINCOLN on 04-06-2025 Sodium [Moles/Vol] 138 mmol/L 133-145 [facility] Troponin T.cardiac [Mass/vol ume] in Serum or Plasma by High sensitivity methodOrdered By: Shawn Soni on 04-06-2025 Troponin T.cardiac High sensitivity method [Mass/Vol] 29 ng/L High <[address] [facility] Troponin T.cardiac High sensitivity method [Mass/Vol] 23 ng/L High <[address] [facility] Troponin T.cardiac [Mass/vol ume] in Serum or Plasma by High sensitivity methodOrdered By: ED PROVIDER on 04-06-2025 Troponin T.cardiac High sensitivity method [Mass/Vol] 28 ng/L High <[address] [facility] Comment on above: Hemolysis present, R esults could be affected. White blood cell (WBC) count Ordered By: ED PROVIDER on 04-06-2025 WBC (Bld) [#/Vol] 6.8 10*3/uL 4.4-11.0 [facility] L3410.9999on 12-15-2024 [facility] Misc. COMMENT Normal . [facility] Comment on above: Order Comment: [id number] APCR Result Comment: Test Ordered: [id number] APCR w/FV+A2APla+Fibrin+FII... Lipoprotein (a) 73 [H ] mg/dL [facility] Reference Range: . Verified by repeat analysis. The mean and median Lp(a) concentration of the -[place] population is approximately twice that of the population, although studies have shown that elevated Lp(a) concentration is not an independent risk factor for developing atherosclerotic disease in the -[place] population. Reference Range: <31 Homocysteine 8.5 umol/L [facility] Reference Range: . Homocysteine levels in patients >60 years increase 1-2 umol/L. Reference Range: 5.0 - 15.0 Fibrinogen Activity 513 [H ] mg/dL [facility] Reference Range: . Reference Range: 160 - 420 Alpha-2 Antiplasmin Assay 103 % [facility] Reference Range: . Reference Range: 80 - 150 KI-1 Activity 18.6 IU/mL [facility]Y Reference Range: . Reference Range: <31.1 Protein S Activity (clottable) 77 % [facility]Y Reference Range: . Protein S activity may be falsely increased (masking an abnormal, low result) in patients receiving direct Xa inhibitor (e.g., rivaroxaban, apixaban, edoxaban) or a direct thrombin inhibitor (e.g., dabigatran) anticoagulant treatment due to assay interference by these drugs. Reference Range: 7 months and older: 63 - 140 This test was developed and its performance characteristics determined by [employer]. It has not been cleared or approved by the Food and Drug Administration. Act. Prt C Resist w/FV Defic. 2.6 ratio UY Reference Range: . The APCR result may be falsely increased (masking an abnormal, low APCR result) in patients on direct Xa inhibitor (e.g., rivaroxaban, apixaban, edoxaban) or a direct thrombin inhibitor (e.g., dabigatran) anticoagulant therapy due to assay interference by these drugs. Reference Range: 2.2 - 3.5 Thrombin Antithrombin Complex 2.9 ng/mL [facility] Reference Range: . Pre-analytical conditions such as a difficult draw may spuriously increase test results. Reference Range: <4.3 Factor II Gene Mutation Result Comment [facility] Reference Range: . G-G (Normal-Normal) No prothrombin [id number] mutation present. Interpretation: Comment [facility] Reference Range: . While the patient does not possess this risk factor, other thrombotic risk factors may be detected through systematic clinical laboratory analysis. Methodology: Comment [facility]Y Reference Range: . Patient DNA was evaluated for the factor [place] [address] using PCR amplification followed by restriction analysis and gel electrophoresis. Comments: Comment [facility] Reference Range: . Simultaneous Risks: If a patient possesses two or more congenital or acquired thrombophilic risk factors, the risk of thrombosis may rise to more than the sum of the risk ratios for the individual risk factors. For instance, a combination of the prothrombin [id number] mutation and the factor V Leiden mutation may confer an increase in thrombotic risk in the range of 20-30 fold. Recommendations for Genetic Counseling: The prothrombin gene mutation is an inherited characteristic. If the mutation is present, we recommend that the patient and their family consider genetic counseling to obtain additional information on inheritance and to identify other family members at risk. Testing Characteristics: Genetic testing provides exceptionally high sensitivity and specificity. Inaccurate results are limited to rare polymorphisms in primer binding sites and to misidentification of specimens by collectors or laboratory personnel. This assay detects only the prothrombin [id number] mutation and does not detect other genetic abnormalities. This test was developed and its performance characteristics determined by [facility]. It has not been cleared or approved by the Food and Drug Administration. References: Mitch K, et al. Br J of Haem. 1997;98:907. Katelynn AM, et al. Br J of Haem. 1997;98:353. Mendez Elizabeth Mol.Diagn. 2001;6(3):201. Marta J, et al. Thromb Haemost. 2001;86:809-16. Bandar M, et al. Thromb Haemost. 1999;82:1583. Prothrombin Fragment 1+2 MoAb 516 [H ] pmol/L U Reference Range: . Pre-analytical conditions such as a difficult draw may spuriously increase test results. Reference Range: <326 Performed at: [facility] [address] [id number] Resident Program Specialist: Nain Chavarria MD, Phone: [phone] Performed at: [address] [id number] Resident Program Specialist: Randy Nova PhD, Phone: [phone] Performed By: #### L 3410.9999, L501.6710, L101.9900, L100.0100, L3100.5475, L500.4050 #### [facility] [address] [place] [address]. [place], [address] ANTINUCLEAR ANTIBODIES DIREC Ton 12-03-2024 WILFRED,DIRECT Negative Normal Negative [facility] Comment on above: Result Comment: Perf ormed at: [address] [id number] Resident Program Specialist: Randy Nova PhD, Phone: [phone] Performed By: #### L 3410.9999, L501.6710, L101.9900, L100.0100, L3100.5475, L500.4050 #### [facility] [address] [place], [address] CBC W/Diff, Automatedon 01-0 6-2024 Absolute Lymph 0.69 X10 3/uL Low 0.83-4.[address] [facility] Comment on above: Performed By: #### L 3410.9999, L501.6710, L101.9900, L100.0100, L3100.5475, L500.4050 #### [facility] [address] [place], [address] Absolute Neut 5.7 X10 3/uL Normal 2.0-7.[address] [facility] Comment on above: Performed By: #### L 3410.9999, L501.6710, L101.9900, L100.0100, L3100.5475, L500.4050 #### [facility] [address] [place], [address] Basophils/100 WBC (Bld) 1.0 % Normal 0-[address] [facility] Comment on above: Performed By: #### L 3410.9999, L501.6710, L101.9900, L100.0100, L3100.5475, L500.4050 #### [facility] [address] [place], [address] Eosinophils/100 WBC (Bld) 4.6 % Normal 0-[address] [facility] Comment on above: Performed By: #### L 3410.9999, L501.6710, L101.9900, L100.0100, L3100.5475, L500.4050 #### [facility] [address] [place], [address] Erythrocyte distribution width (RBC) [Ratio] 12.2 % Normal 11.6-14.[address] [facility] Comment on above: Performed By: #### L 3410.9999, L501.6710, L101.9900, L100.0100, L3100.5475, L500.4050 #### [facility] [address] [place], [address] Hematocrit (Bld) [Volume fraction] 44.6 % Normal 37-[address] [facility] Comment on above: Performed By: #### L 3410.9999, L501.6710, L101.9900, L100.0100, L3100.5475, L500.4050 #### [facility] [address] [place], [address] Hemoglobin (Bld) [Mass/Vol] 14.9 g/dL Normal 12.0-15.[address] [facility] Comment on above: Performed By: #### L 3410.9999, L501.6710, L101.9900, L100.0100, L3100.5475, L500.4050 #### [facility] [address] [facility] [place], [address] IG% 0.100 Normal 0.0-0.[address] [facility] Comment on above: Result Comment: IG% - Immature Granulocytes (promyelocytes, myelocytes and metamyelocytes) > 1% indicates that a LEFT SHIFT is Present. Performed By: #### L 3410.9999, L501.6710, L101.9900, L100.0100, L3100.5475, L500.4050 #### [facility] [address], [address] Lymphocytes/100 WBC (Bld) 9.6 % Low 19-[address] [facility] Comment on above: Performed By: #### L 3410.9999, L501.6710, L101.9900, L100.0100, L3100.5475, L500.4050 #### [facility] [address] [place], [address] MCH (RBC) [Entitic mass] 31.2 pg Normal 27.0-32.[address] [facility] Comment on above: Performed By: #### L 3410.9999, L501.6710, L101.9900, L100.0100, L3100.5475, L500.4050 #### [facility] [address] [place], [address] MCHC (RBC) [Mass/Vol] 33.4 g/dL Normal 32-36 [facility] Comment on above: Performed By: #### L 3410.9999, L501.6710, L101.9900, L100.0100, L3100.5475, L500.4050 #### [facility] [address] [place], [address] MCV (RBC) [Entitic vol] 93.5 fL Normal 81-[address] [facility] Comment on above: Performed By: #### L 3410.9999, L501.6710, L101.9900, L100.0100, L3100.5475, L500.4050 #### [facility] [address] [place], [address] Monocytes/100 WBC (Bld) 6.1 % Normal 0-[address] [facility] Comment on above: Performed By: #### L 3410.9999, L501.6710, L101.9900, L100.0100, L3100.5475, L500.4050 #### [facility] [address] [place], [address] Neutrophils/100 WBC (Bld) 78.6 % High 47-[address] [facility] Comment on above: Performed By: #### L 3410.9999, L501.6710, L101.9900, L100.0100, L3100.5475, L500.4050 #### [facility] [address] [place], [address] Nucleated RBC (Bld) [#/Vol] 0 10*3/uL Normal 0-[address] [facility] Comment on above: Performed By: #### L 3410.9999, L501.6710, L101.9900, L100.0100, L3100.5475, L500.4050 #### [facility] [address] [place], [address] Platelet mean volume (Bld) [Entitic vol] 11.1 fL Normal 6.2-12.[address] [facility] Comment on above: Performed By: #### L 3410.9999, L501.6710, L101.9900, L100.0100, L3100.5475, L500.4050 #### [facility] [address] [place], [address] Platelets (Bld) [#/Vol] 290 10*3/uL Normal 150-[address] [facility] Comment on above: Performed By: #### L 3410.9999, L501.6710, L101.9900, L100.0100, L3100.5475, L500.4050 #### [facility] [address] [place], [address] RBC (Bld) [#/Vol] 4.77 10*6/uL Normal 4.2-5.4 [facility] Comment on above: Performed By: #### L 3410.9999, L501.6710, L101.9900, L100.0100, L3100.5475, L500.4050 #### [facility] [address] [place], [address] RDW SD 42.3 fl Normal 35.1-43.[address] [facility] Comment on above: Performed By: #### L 3410.9999, L501.6710, L101.9900, L100.0100, L3100.5475, L500.4050 #### [facility] [address] [place], [address] WBC (Bld) [#/Vol] 7.2 10*3/uL Normal 4.4-11.0 [facility] Comment on above: Performed By: #### L 3410.9999, L501.6710, L101.9900, L100.0100, L3100.5475, L500.4050 #### [facility] [address] [place], [address] CRPon 12-01-2024 C-REACTIVE PROT 15.30 mg/L High 0.0-3.[address] [facility] Comment on above: Result Comment: C-Re active Protein (CRP) provides useful information for the diagnosis, therapy and monitoring of inflammatory processes and associated diseases. For the evaluation of Relative Risk for Cardiovascular Disease, a High Sensitivity CRP (HSCRP) should be ordered. Performed By: #### L 3410.9999, L501.6710, L101.9900, L100.0100, L3100.5475, L500.4050 #### [facility] [address] [place], [address] Comprehensive Metabolic Prof ilon 12-01-2024 Albumin [Mass/Vol] 3.7 g/dL Normal 3.2-5.0 [facility] Comment on above: Performed By: #### L 3410.9999, L501.6710, L101.9900, L100.0100, L3100.5475, L500.4050 #### [facility] [address] [place], [address] Albumin/Globulin [Mass ratio] 0.9 {ratio} Normal 0.9-2.[address] [facility] Comment on above: Performed By: #### L 3410.9999, L501.6710, L101.9900, L100.0100, L3100.5475, L500.4050 #### [facility] [address] [place], [address] ALK P 74 U/L Normal 45-[address] [facility] Comment on above: Performed By: #### L 3410.9999, L501.6710, L101.9900, L100.0100, L3100.5475, L500.4050 #### [facility] [address] [place], [address] ALT [Catalytic activity/Vol] 28 U/L Normal 13-56 [facility] Comment on above: Performed By: #### L 3410.9999, L501.6710, L101.9900, L100.0100, L3100.5475, L500.4050 #### [facility] [address] [place], [address] AST [Catalytic activity/Vol] 21 U/L Normal 15-[address] [facility] Comment on above: Performed By: #### L 3410.9999, L501.6710, L101.9900, L100.0100, L3100.5475, L500.4050 #### [facility] [address] [place], [address] Bilirubin [Mass/Vol] 0.40 mg/dL Normal 0.20-1.00 [facility] Comment on above: Result Comment: For patients on eltrombopag therapy, use of Dimension [place] TBIL is not recommended. Performed By: #### L 3410.9999, L501.6710, L101.9900, L100.0100, L3100.5475, L500.4050 #### [facility] [address] [place], [address] BUN/CRE 21.2 RATIO High 10-[address] [facility] Comment on above: Performed By: #### L 3410.9999, L501.6710, L101.9900, L100.0100, L3100.5475, L500.4050 #### [facility] [address] [place], [address] CA,Total 9.5 mg/dL Normal 8.5-10.[address] [facility] Comment on above: Performed By: #### L 3410.9999, L501.6710, L101.9900, L100.0100, L3100.5475, L500.4050 #### [facility] [address] [place], [address] Chloride [Moles/Vol] 104 mmol/L Normal 98-107 [facility] Comment on above: Performed By: #### L 3410.9999, L501.6710, L101.9900, L100.0100, L3100.5475, L500.4050 #### [facility] [address] [place], [address] CO2 [Moles/Vol] 27.0 mmol/L Normal 21.0-32.[address] [facility] Comment on above: Performed By: #### L 3410.9999, L501.6710, L101.9900, L100.0100, L3100.5475, L500.4050 #### [facility] [address] [place], [address] Creatinine [Mass/Vol] 0.75 mg/dL Normal 0.55-1.02 [facility] Comment on above: Result Comment: The validity of the calculated GFR GFRAA in patients over 70 years has not been determined. Clinical correlation is essential. Performed By: #### L 3410.9999, L501.6710, L101.9900, L100.0100, L3100.5475, L500.4050 #### [facility] [address] [place], [address] EST GFR - AA 101 mL/min Normal >[address] [facility] Comment on above: Result Comment: Afri can Tristanian GFR Calc Performed By: #### L 3410.9999, L501.6710, L101.9900, L100.0100, L3100.5475, L500.4050 #### [facility] [address] [place], [address] GAP 5 Normal 5-[address] [facility] Comment on above: Performed By: #### L 3410.9999, L501.6710, L101.9900, L100.0100, L3100.5475, L500.4050 #### [facility] [address] [place], [address] GFR/1.73 sq M.predicted among non-blacks MDRD (S/P/Bld) [Vol rate/Area] 83 mL/min/{1.73_m2} Normal >[address] [facility] Comment on above: Result Comment: Non- GFR Calc Performed By: #### L 3410.9999, L501.6710, L101.9900, L100.0100, L3100.5475, L500.4050 #### [facility] [address] [place], [address] Globulin (S) [Mass/Vol] 3.9 g/dL Normal 2.2-4.[address] [facility] Comment on above: Performed By: #### L 3410.9999, L501.6710, L101.9900, L100.0100, L3100.5475, L500.4050 #### [facility] [address] [place], [address] Glucose [Mass/Vol] 97 mg/dL Normal 74-106 [facility] Comment on above: Performed By: #### L 3410.9999, L501.6710, L101.9900, L100.0100, L3100.5475, L500.4050 #### [facility] [address] [place], [address] Potassium [Moles/Vol] 4.3 mmol/L Normal 3.5-5.1 [facility] Comment on above: Performed By: #### L 3410.9999, L501.6710, L101.9900, L100.0100, L3100.5475, L500.4050 #### [facility] [address] [place], [address] Sodium [Moles/Vol] 136 mmol/L Normal 136-145 [facility] Comment on above: Performed By: #### L 3410.9999, L501.6710, L101.9900, L100.0100, L3100.5475, L500.4050 #### [facility] [address] [place], [address] T PROT 7.6 g/dL Normal 6.4-8.[address] [facility] Comment on above: Performed By: #### L 3410.9999, L501.6710, L101.9900, L100.0100, L3100.5475, L500.4050 #### [facility] [address] [place], [place], [address] Urea nitrogen [Mass/Vol] 16 mg/dL Normal 7-[address] [facility] Comment on above: Performed By: #### L 3410.9999, L501.6710, L101.9900, L100.0100, L3100.5475, L500.4050 #### [facility] [address] [place], [address] Erythrocyte Sed Rateon 12-01 SED RATE 30 mm/hr Normal 0-[address] [facility] Comment on above: Performed By: #### L 3410.9999, L501.6710, L101.9900, L100.0100, L3100.5475, L500.4050 #### [facility] [address] [place], [address] Fact V Leiden Mutationon FACTOR V LEIDEN Normal [facility] Comment on above: Result Comment: DIFF ERENT REQ Performed By: #### L 100.0100, L500.2500, L501.4021 #### [facility] [address] [place], [address] Factor II, DNA Analysison FACTOR II, DNA Normal [facility] Comment on above: Result Comment: DIFF ERENT REQ Performed By: #### L 100.0100, L500.2500, L501.4021 #### [facility] [address] [place], [address] Protein S, Functionalon PROTEIN S, FUNC Normal 60-[address] [facility] Comment on above: Result Comment: DIFF ERENT REQ Performed By: #### L 100.0100, L500.2500, L501.4021 #### [facility] [address] [place], [address] 12 Lead [place] [facility] 12 Lead [facility]KG performed by [facility] [address] [place] [address] 12 Lead EKG [place] [facility] 11/05/24 1454 MR#: [id number] Acct: [id number] Name: VICKIE BARLOW Rep #: [id number] : 1965 59 From: Dick Ruiz NP CORE JAVA ENGINEER-C Attending Dr: Dick Ruiz CORE JAVA ENGINEER-C Status: DEP AMB Ordering Dr: Dick Ruiz NP CORE JAVA ENGINEER-C Date: 11/05/24 [place] [facility] [facility] [place] F C [place] [facility] Lead [place] [facility] ECG Report Interpretation -----Atrial fibrillation -RSR(V1) -nondiagnostic. Low voltage -possible pulmonary disease. ABNORMAL Electronically signed on 11/11/2024 at 08:34 by Stalin [employer] Version [id number] 11/11/24 0839 Date Dick H Roof CORE JAVA ENGINEER CORE JAVA ENGINEER-C CC: LYNDSEY Cobb Date Dictated: 11/05/241453 Date Transcribed: 11/05/241453 Golf Ball Cover Treater: JANAE Signed Normal [facility] Cardiology Visit Reporton Cardiology Visit Report [facility] [address] [place] [address] OFFICE VISIT Date of Service: 11/05/24 MR#: [id number] Acct: [id number] Name: VICKIE BARLOW Rep #: [id number] : 1965 Provider: LYNDSEY danielson Age/Sex: 59/F [place] [facility] Status: Signed HPI HPI History of Present Illness Details: This is a pleasant 59-year-old lady who presents for evaluation of atrial fibrillation. She said that while she was in [place] in November of this year she got short of breath very fatigued sometime after she had developed COVID. She went into the hospital and was noted to have pulmonary embolus of the right lung without any evidence of right ventricular strain, as well as new onset atrial fibrillation. She had an echocardiogram performed which demonstrated preserved left ventricular systolic function estimated EF of 55 to 60%. She was put on anticoagulation initially with heparin and then switched to Eliquis and put on Lopressor 25 twice daily and diltiazem 120 mg a day. She denies chest, arm, jaw, or neck discomfort. She denies palpitations. She denies bilateral lower extremity edema. She denies claudication. She states shortness of breath with activity such as rushing. She denies shortness of breath at rest, orthopnea, or PND. She denies chronic cough. She denies significant, sudden weight gain. She denies lightheadedness, dizziness, near-syncope, or syncope. She denies blood in urine, blood in stool, or epistaxis. He denies fever with chills. She denies myalgia. She denies fatigue. Her exercise level has remained stable. Intake Vital Signs 05/16/24 11:23 11/05/24 10:22 Height 5 ft 3 in 5 ft 3 in Weight: 264 lb 264 lb BMI 46.7 46.7 BP 117/88 H 125/78 H Blood Pressure Location Lt brachial Lt brachial Position Sitting Sitting Respiration 18 18 Pulse 95 98 Pulse Source Monitor Monitor Pulse Oximetry (%) 98 97 Intake Visit Reasons: 6 M FU Process Coordinator Required: No Is patient in pain?: No Allergies celecoxib (From Celebrex) Allergy (Verified 05/16/24 11:40) Shortness of breath levofloxacin (From Levaquin) Adverse Reaction (Verified 05/16/24 11:40) Pain in joints Medications ???Medication ???Instructions ???Recorded ???Confirmed ???Type lactobacillus combination no.8 3 3,000 mmu cells PO DAILY 03/07/21 11/05/24 History billion cell capsule (Adult Probiotic) multivitamin (Multiple Vitamins 1 tablet PO BID 03/07/21 11/05/24 History tablet) methocarbamol 500 mg tablet 500 mg PO BID PRN 01/21/24 11/05/24 History meloxicam 15 mg tablet 7.5 mg PO QDAY 02/13/24 11/05/24 History acetaminophen 325 mg capsule 325 mg PO ONCE PRN 05/16/24 11/05/24 History (Tylenol) sertraline 50 mg tablet 50 mg PO DAILY 05/16/24 11/05/24 History apixaban 5 mg tablet (Eliquis) 5 mg PO BID #180 tabs 11/05/24 11/05/24 Rx metoprolol tartrate 50 mg tablet 50 mg PO BID #180 tabs 11/05/24 11/05/24 Rx PFSH Medical History Hx of pulmonary embolus Atrial fibrillation Atypical chest pain Arthralgia Frequent falls Dysphagia Anxiety Migraine Asthma Vitamin D deficiency Mitral valve prolapse Hypercholesterolemia Psoriasis IBS (irritable bowel syndrome) Diverticulitis Depression Surgical History s/p incision and drainage left shoulder blade abscess ( 08/29/19) Detached retina S/P eye surgery S/P section Family History Mother Asthma Diabetes Heart disease Hypertension CAD (coronary artery disease) COPD (chronic obstructive pulmonary disease) Rheumatoid arthritis Sister Diabetes Heart disease Father , age 44 Sudden cardiac Myocardial infarction Social History household members: spouse and children housing: house current occupational status: unemployed Smoking Status: Never smoker second hand exposure: Yes alcohol intake: former what type of physical activity do you participate in: none seatbelt use: always do you feel safe at home: Yes ROS Const Const: Negative for fatigue, weakness, headache(s) or weight gain ENT ENT: Negative for headache(s), dizziness, Nosebleed/epistaxis or balance problems Cardio Chest Pain: No Palpitations: No Edema: None Muscle aches with walking: None Resp Respiratory: Positive for SOB with activity; Negative for SOB at rest or SOB orthopnea SOB lying down GI GI: Negative nausea, vomiting or heartburn : Negative for hematuria or frequent nighttime urination/ nocturia Musc Musc: Negative for muscle aches/ myalgia, muscle weakness, joint pain or balance problems (more content not included)... Normal [facility] Wrist min 3 Viewson 10-31-20 Wrist min 3 Views [facility] Imaging Services [address] [place], [place] [id number] Wrist min 3 Views MR#: [id number] Acct: [id number] Name: VICKIE BARLOW Rep #: [id number] : 1965 F 59 From: Mai Jenkins PCP: LYNDSEY Wood Status: REG CL Study: Wrist min 3 Views Date of Exam: 10/31/24 Exam# [id number] Ordering Dr: Mary Cobb NP CORE JAVA ENGINEER-C [id number] INDICATION: PAIN LEFT WRIST PAIN NO KNOWN INJURY EXAMINATION/TECHNIQUE : X-RAY - LEFT XR Wrist Min 3 Views 3 VIEWS COMPARISON: Prior study dated: 10/28/2010 __ FINDINGS: BONES: No fracture demonstrated. Mild erosion at the ulnar styloid process which was not present on the prior. JOINTS: No dislocation. SOFT TISSUES: Unremarkable. __ RAD/Wrist min 3 Views IMPRESSION: Mild erosion of the ulnar styloid process. Nonspecific can be seen with rheumatoid arthritis. No evidence of fracture. Electronically Signed: Mai Laguna MD at 8:12 EST , CC: LYNDSEY Cobb Golf Ball Cover Treater: Signed Normal [facility] Absolute lymphocyte countOrd ered By: Mary Cobb on 10-15-2023 Lymphocytes Auto (Unsp spec) [#/Vol] 0.77 10*3/uL 0.83-4.[address] [facility] Basophil percentageOrdered B y: Mary Cobb on 10-15-2023 Basophils/100 WBC (Bld) 0.7 % 0-[address] [facility] Bilirubin [Mass/Vol] 0.40 mg/dL 0.20-1.00 [facility] Comment on above: For patients on eltr ombopag therapy, use of Dimension [place] TBIL is not recommended. Chloride [Moles/Vol] 104 mmol/L 98-107 [facility] Eosinophils/100 WBC (Bld) 4.2 % 0-[address] [facility] Glucose [Mass/Vol] 89 mg/dL 74-106 [facility] Neutrophils (Bld) [#/Vol] 5.4 10*3/uL 2.0-7.[address] [facility] Neutrophils/100 WBC (Bld) 74.5 % 47-[address] [facility] Potassium [Moles/Vol] 4.3 mmol/L 3.5-5.1 [facility] Protein [Mass/Vol] 7.4 g/dL 6.4-8.2 [facility] Sodium [Moles/Vol] 137 mmol/L 136-145 [facility] Testosterone [Mass/Vol] 28.41 ng/dL [facility] Comment on above: CENTRAL 90% REFERENC E RANGES MALE AGE <50 197.44 - 669.58 ng/dL MALE AGE > or = 50 187.72 - 684.19 ng/dL FEMALE AGE <50 8.38 - 35.01 ng/dL FEMALE AGE > or = 50 <7.00 - 35.92 ng/dL Effective as of 06/21/21 WBC (Bld) [#/Vol] 7.2 10*3/uL 4.4-11.0 [facility] Blood erythrocytes count (nu mber/volume)Ordered By: Mary Cobb on 10-15-2023 RBC (Bld) [#/Vol] 4.71 10*6/uL 4.2-5.4 [facility] Blood hemoglobin measurement (mass/volume)Ordered By: Mary Cobb on 10-15-2023 Hemoglobin (Bld) [Mass/Vol] 14.3 g/dL 12.0-15.[address] [facility] Blood lymphocytes/100 leukoc ytesOrdered By: Mary Cobb on 10-15-2023 Lymphocytes/100 WBC (Bld) 10.7 % 19-[address] [facility] Blood monocytes/100 leukocyt esOrdered By: Mary Cobb on 10-15-2023 Monocytes/100 WBC (Bld) 9.8 % 0-[address] [facility] Blood platelet mean volumeOr dered By: Mary Cobb on 10-15-2023 Platelet mean volume (Bld) [Entitic vol] 10.6 fL 6.2-12.[address] [facility] Determination of erythrocyte mean corpuscular volume (MCV)Ordered By: Mary Cobb on 10-15-2023 MCV (RBC) [Entitic vol] 94.7 fL 81-[address] [facility] Hematocrit Auto (Bld) [Volum e fraction]Ordered By: Mary Cobb on 10-15-2023 Hematocrit (Bld) [Volume fraction] 44.6 % 37-[address] [facility] Laboratory - Chemistry and C hemistry - challengeOrdered By: Mary Cobb on 10-15-2023 ALP [Catalytic activity/Vol] 64 U/L 45-[address] [facility] ALT [Catalytic activity/Vol] 26 U/L 13-[address] [facility] CO2 [Moles/Vol] 31.0 mmol/L 21.0-32.[address] [facility] Globulin (S) [Mass/Vol] 3.8 g/dL 2.2-4.[address] [facility] Urea nitrogen/Creatinine [Mass ratio] 23.6 mg/mg 10-[address] [facility] Laboratory - Hematology and Cell countsOrdered By: Mary Cobb on 10-15-2023 Erythrocyte distribution width (RBC) [Entitic vol] 43.8 fL 35.1-43.[address] [facility] Erythrocyte distribution width (RBC) [Ratio] 12.6 % 11.6-14.[address] [facility] Immature granulocytes/100 WBC (Bld) 0.100 % 0.0-0.[address] [facility] Comment on above: IG% - Immature Granu locytes (promyelocytes, myelocytes and metamyelocytes) > 1% indicates that a LEFT SHIFT is Present. MCH (RBC) [Entitic mass] 30.4 pg 27.0-32.[address] [facility] Nucleated RBC/100 WBC (Bld) [Ratio] 0 % 0-[address] [facility] MCHC Auto (RBC) [Mass/Vol]Or dered By: Mary Cobb on 10-15-2023 MCHC (RBC) [Mass/Vol] 32.1 g/dL 32-36 [facility] No Panel InformationOrdered By: Mary Cobb on 10-15-2023 Estimated GFR (MDRD) Amer 100 mL/min >[address] [facility] Comment on above: GFR Calc Estimated GFR (MDRD) Non-Af Amer 82 mL/min >[address] [facility] Comment on above: Non- GFR Calc Platelets bldOrdered By: Zoya Cobb on 10-15-2023 Platelets (Bld) [#/Vol] 290 10*3/uL 150-[address] [facility] Serum or plasma C reactive p rotein measurement (mass/volume)Ordered By: Mary Cobb on 10-15-2023 CRP [Mass/Vol] 14.80 mg/L 0.0-3.[address] [facility] Comment on above: C-Reactive Protein ( CRP) provides useful information for thediagnosis, therapy and monitoring of inflammatory processesand associated diseases. For the evaluation of Relative Riskfor Cardiovascular Disease, a High Sensitivity CRP (HSCRP)should be ordered. Serum or plasma albumin yuliya urement (mass/volume)Ordered By: Mary Cobb on 10-15-2023 Albumin [Mass/Vol] 3.6 g/dL 3.2-5.0 [facility] Serum or plasma albumin/glob ulin mass ratioOrdered By: Mary Cobb on 10-15-2023 Albumin/Globulin [Mass ratio] 0.9 {ratio} 0.9-2.[address] [facility] Serum or plasma calcium yuliya urement (mass/volume)Ordered By: Mary Cobb on 10-15-2023 Calcium [Mass/Vol] 8.8 mg/dL 8.5-10.1 [facility] Serum or plasma creatinine m easurement (mass/volume)Ordered By: Mary Cobb on 10-15-2023 Creatinine [Mass/Vol] 0.76 mg/dL 0.55-1.02 [facility] Comment on above: The validity of the calculated GFR & GFRAA in patients over 70 years has not been determined. Clinical correlation is essential. Serum or plasma estradiol (E 2) measurement (mass/volume)Ordered By: Mary Cobb on 10-15-2023 E2 [Mass/Vol] 26.6 pg/mL [facility] Comment on above: NORMAL REFERENCE RAN GES FEMALE FOLLICULAR 21.4 - 164.8 pg/mL MID-CYCLE PEAK 49.9 - 367.2 pg/mL LUTEAL 40.2 - 259.0 pg/mL POST-MENOPAUSAL ON MHT <11.0 - 462.1 pg/mL NOT ON MHT <11.0 - 58.3 pg/mL MALE <11.0 - 52.5 pg/mL NOTE:[employer] HAS CONFIRMED THE DRUG FULVETRANT (FASLODEX) MAY CAUSE FALSELY ELEVATED ESTRADIOL RESULTS WHEN USING THIS TEST METHOD. IF PATIENT IS TAKING FULVESTRANT AN ALTERNATIVE METHOD SHOULD BE USED TO DETERMINE ESTRADIOL CONCENTRATION. Serum or plasma progesterone measurement (mass/volume)Ordered By: Mary Cobb on 10-15-2023 Progesterone [Mass/Vol] 0.37 ng/mL See Comment [facility] Comment on above: Progesterone Referen ce Table: UNITS Female: Follicular 0.15 - 1.40 ng/mL Luteal 3.34 - 25.56 ng/mL Mid-luteal 4.44 - 28.03 ng/mL Postmenopausal 0.0 - 0.73 ng/mL : 1st Trimester 11.22 - 90.00 ng/mL 2nd Trimester 25.55 - 89.40 ng/mL 3rd Trimester 48.40 -422.50 ng/mL Serum or plasma urea nitroge n measurement (mass/volume)Ordered By: Mary Cobb on 10-15-2023 Urea nitrogen [Mass/Vol] 18 mg/dL 7-[address] [facility] Thin prep Papanicolaou smear with manual screeningOrdered By: Mary Cobb on 10-15-2023 Thin prep Papanicolaou smear with manual screening 15 U/L 15-[address] [facility] Thin prep Papanicolaou smear with manual screening 2 5-[address] [facility] CNCOon 07-14-2023 [facility] HNO ID: [id number] Author: Coordinator, Mammography Service: ? Author Type: Physician Type: Letter Filed: 07/16/2023 11:37 PM Note Text: July 16, 2023 PID: [id number] Marilin Barlow [address] [place], [place] [address] Dear Ms. Barlow, We are pleased to inform you that the results of your recent breast imaging exam on 07/13/2023 are normal. Early detection of cancer is very important. We also understand recommendations regarding breast cancer screening are controversial. Please discuss with your primary care provider which strategy is best for you and whether a mammogram is right for you. Your imaging studies and report will be kept on file at [facility] as part of your permanent medical record and are available for your continuing care. Thank you for allowing us to help in meeting your health care needs. Sincerely, Dr. Clark Interpreting Radiologist [facility] (Normal over 40) Normal [facility] SCREENING W TOMOon 07-13 [facility] SCREENING W JIMMY * * *Final Report* * * DATE OF EXAM: Jul 13 2023 12:48PM [id number] [id number] - [facility] SCREENING W JIMMY / PROCEDURE REASON: Encounter for screening mammogram for malignant neoplasm of breast * * * * Physician Interpretation * * * * RESULT: #[id number] - [facility] SCREENING W JIMMY BILATERAL DIGITAL SCREENING MAMMOGRAM TOMOSYNTHESIS WITH CAD: 07/13/2023 HISTORY: Encounter For Screening Mammogram For Malignant Neoplasm Of Breast / Screening Mammogram-Patient reports NO symptoms. RESULT: TECHNIQUE: The study was acquired using full field digital technology and interpreted from soft copy. Digital Breast Tomosynthesis (DBT) images were obtained and used to assist in the interpretation of this examination. Current study was also evaluated with a Computer Aided Detection (CAD). Comparison is made to exams dated: 05/18/2016 mammogram and 12/24/2014 mammogram - [facility]. The tissue of both breasts is predominantly fatty. No significant masses, calcifications, or other findings are seen in either breast. There has been no significant interval change. IMPRESSION: NEGATIVE There is no mammographic evidence of malignancy. A 1 year screening mammogram is recommended. Hanna montes/selina:07/14/2023 08:12:43 Resident Caregiver(s): RT Ari(Susie)(M), [facility] letter sent: Normal over 40 Mammogram BI-RADS: 1 Negative Multiple national specialty organizations have released breast cancer screening guidelines for women at average risk for developing breast cancer - guidelines that are based on both evidence and opinion, yet differ on when to start and how often to screen for breast cancer. With representation from Breast Imaging, Internal Medicine, Women's Health, Family Medicine, and Medical/Surgical Oncology, the [facility] has carefully reviewed the data and reached the following consensus: 1) All women should engage in shared decision-making with their providers to decide when to start and how often to screen; 2) All women should have the opportunity to start screening mammography at age 40; 3) For women ages 45-55, we recommend annual screening mammograms; 4) For women ages 55 and over, we support both the transition from an annual to a biennial interval if this aligns more with patient's values and preferences, or continuation with annual screening; 5) All women should discuss with their providers when to stop screening mammograms. Golf Ball Cover Treater: Selina Transcribe Date/Time: Jul 13 2023 12:38P Dictated by: HANNA CLARK MD This examination was interpreted and the report reviewed and electronically signed by: HANNA CLARK MD on Jul 14 2023 8:12AM EST [id number] Normal [facility] CNPRisa 04-02-2023 CNPN Telephone (OBGYWM) MARILIN BARLOW ([id number]) 1965 F Date Time Provider Department 04/02/23 MARQUES PAUL OBGYWM During your visit today, we recorded the following information about you: Chanelle Boland RN 04/02/2023 3:27 PM Signed ----- Message from Marques Paul MD sent at 04/02/2023 3:05 PM EDT ----- Schedule her a follow up to discuss hysteroscopy DANDC and polyp resection. If she is comfortable scheduling, we can schedule and discuss in detail at preop. Need surgery sheet. Thanks. MD Chanelle Perez RN 04/02/2023 3:28 PM Signed Left message for patient to call office. Surgery sheet to RR. Chanelle Paul MD 04/02/2023 3:50 PM Signed See if she has preferred weeks and or [facility] vs [facility]. See surgery sheet Aicha Moore LPN 04/05/2023 4:26 PM Signed Spoke with pt today and she prefers [facility] but will need to figure out some weeks that work well for her as her is currently undergoing treatment for CA in [place] and she needs to look at her schedule. Aicha García [facility] 04/10/2023 4:04 PM Signed Attempted to call patient. Voicemail is full. [employer] message sent with next available dates Marifer Hernandez RN 04/18/2023 11:57 AM Signed 2nd message left for patient to return phone call Chanelle Boland RN 04/19/2023 4:26 PM Addendum Spoke with patient. Leaving for [place] in a week with for his CA treatments. If we haven't heard back from her with an update on a surgery date by 05/21/23. Please call her then. Chanelle García LPN 05/30/2023 11:05 AM Signed Spoke with patient and she is still traveling to [place] with her for his treatments and does not know when she will be able to schedule. Patient stated that she will reach out to office when she is ready to schedule. Allergies As of Date: 04/02/2023 Noted Allergy Reaction CELEBREX (CELECOXIB) 08/27/2008 12 - Shortness of Breath DAIRY DIGESTIVE (LACTASE) 05/03/2006 Date Reviewed: 03/29/2023 Reviewed by: Marques Paul MD - Fully Assessed Reason for Visit: Results [95] Prescriptions as of 05/31/2023 - methocarbamol (ROBAXIN) 500 mg tablet TAKE 1/2 TABLET BY MOUTH TWICE DAILY NEEDED FOR PAIN - meloxicam (MOBIC) 15 mg tablet Take 15 mg by mouth once daily. - tiZANidine (ZANAFLEX) 4 mg tablet Take 2-4 mg by mouth twice daily as needed. - sertraline (ZOLOFT) 50 mg tablet Take 50 mg by mouth once daily. - LACTOBACILLUS ACIDOPHILUS (ACIDOPHILUS ORAL) Take by mouth. - MULTIVITAMIN ORAL Take by mouth. Problem List As Of Date 04/02/2023 Noted Resolved STASIS DERMATITIS///VENOUS INSUFFICIENCY NOS [I*02/07/2007 12/24/2014 STASIS DERMATITIS///LEG VARICOSITY W INFLAM [I8*02/07/2007 12/24/2014 Contact dermatitis and other eczema, due to uns*02/07/2007 12/24/2014 Cellulitis and abscess of leg, except foot [L03*02/07/2007 12/24/2014 Unspecified pruritic disorder [L29.9] 02/07/2007 12/24/2014 ZEROSIS///SEBACEOUS GLAND DIS NEC [L73.8] 02/07/2007 12/24/2014 Vulvar lesion [N90.89] 03/28/2012 04/11/2012 Morbid obesity (HCC) [E66.01] Diverticulosis [K57.90] Spondylolisthesis at L5-S1 level [M43.17] Renal cyst, right [N28.1] Hiatal hernia [K44.9] Varicose veins [I83.90] Left upper quadrant pain [R10.12] 02/11/2016 Mild intermittent asthma without complication [*02/11/2016 Diverticulosis of intestine without bleeding [K*02/11/2016 Dysphagia [R13.10] 02/23/2016 02/23/2016 LUQ pain [R10.12] 02/23/2016 02/23/2016 Screening for colon cancer [Z12.11] 02/23/2016 02/23/2016 Obesity, Class III, BMI >= 40 [E66.01] 03/29/2023 Encounter Status:Closed by LYDIA GARCÍA LPN on 05/31/23 [facility] CNOVon 03-29-2023 CNOV Office Visit (OBGYWM ) MARILIN BARLOW ([id number]) 1965 F Date Time Provider Department 03/29/23 11:30 AM MARQUES PAUL OBGYWAmarilys During your visit today, we recorded the following information about you: Blood pressure Weight 146/84 114.3 kg Marques Paul MD 03/29/2023 11:53 AM Signed Marilin is a 57 year old who presents today for an endometrial biopsy for thickening of endometrial lining. test: n/a UNIVERSAL PROTOCOL / SAFETY CHECKLIST Procedure to be Performed: EMB Sign In: A Moment of CARE was completed. Personnel directly involved with the procedure wore the appropriate PPE (Personal Protective Equipment). Patient/Surrogate Stated/Verified: PATIENT VERIFIED(optional for EMERGENT procedures): Patient name, Date of , Relevant allergies, and The intended procedure Time Out Communication: Intended patient and procedure match the source documents. Consent documented and matches the intended procedure. Relevant labs, photos, and/or imaging studies have been reviewed. No implant(s) inserted. Sign Out: SIGN OUT (optional for EMERGENT procedures): All specimen containers correctly labeled. All instruments, equipment, possible retained foreign bodies accounted for. Post-procedure follow-up management communicated and Plan of Care Visit completed when applicable. Marques Paul M.D. PROCEDURE: EXTERNAL GENITALIA: Normal in appearance without lesions VAGINA: Normal in appearance without lesions BIOPSY: Speculum placed into the vagina with excellent visualization of the cervix. Cervix cleaned with betadine. Anterior lip of cervix grasped with single toothed tenaculum. Uterus sounded to 8 cm. Pipelle inserted into the uterus without difficulty and endometrial biopsy obtained. Specimen labeled and sent to pathology. Procedure Summary: Patient tolerated procedure well. ASSESSMENT: abnormal uterine bleeding PLAN: Specimens labeled and sent to Pathology. Will notify patient of results in 1-2 weeks. Post-procedure instructions reviewed and written material given to the patient. Pap done as well Marques [facility] MD [facility] 03/29/2023 11:25 AM Signed YOUR RECOVERY After your biopsy you may have: Vaginal bleeding (less than a normal menstrual period) Mild cramping Do NOT put anything in the vagina for 1 week after your endometrial biopsy. This includes: tampons douches and refraining from having sexual intercourse If you have any discomfort, you may take an over the counter pain medication (motrin, advil, ibuprofen, tylenol, etc). If this does not relieve your discomfort, contact the office. It is okay to wear a sanitary pad until the discharge and spotting stops. RISKS Although problems seldom occur with endometrial biopsies, there can be some complications. You may feel faint during and shortly after the procedure as well as have some bleeding after the procedure. There is also a risk of infection after the procedure. These complications are rare and can be easily treated. You should contact you doctor is you have any of the following: Heavy bleeding (more than your normal period) Bleeding with clots Severe abdominal pain Fever (more than 100.4F) Foul smelling vaginal discharge RESULTS We will have the results of your biopsy in 1-2 weeks. If you do not hear the results of your biopsy after 2 weeks, please contact the office for the results. If you have any additional questions or concerns please do not hesitate to contact the office. Allergies As of Date: 03/29/2023 Noted Allergy Reaction CELEBREX (CELECOXIB) 08/27/2008 12 - Shortness of Breath DAIRY DIGESTIVE (LACTASE) 05/03/2006 Date Reviewed: 03/29/2023 Reviewed by: Marques Paul MD - Fully Assessed Reason for Visit: Endometrial Biopsy [7501] Primary Visit Diagnosis:PMB (postmenopausal bleeding) [N95.0] Other Visit Diagnoses:Thickened endometrium [R93.89] Encounter for screening mammogram for malignant neoplasm of breast [Z12.31] Encounter for screening for malignant neoplasm of cervix [Z12.4] Special screening examination for human papillomavirus (HPV) [Z11.51] Order(s):ENDOMETRIAL BIOPSY [[id number]] Order #: [id number] SURGICAL PATHOLOGY [[id number]] Order #: [id number]. #:[id number] KAUSHIK SCREENING W JIMMY [[id number]] Order #: [id number] FUTURE PAP TEST [[id number]] Order #: [id number]. #:[id number] Prescriptions as of 03/29/2023 - methocarbamol (ROBAXIN) 500 mg tablet TAKE 1/2 TABLET BY MOUTH TWICE DAILY NEEDED FOR PAIN - meloxicam (MOBIC) 15 mg tablet Take 15 mg by mouth once daily. - tiZANidine (ZANAFLEX) 4 mg tablet Take 2-4 mg by mouth twice daily as needed. - sertraline (ZOLOFT) 50 mg tablet Take 50 mg by mouth once daily. - LACTOBACILLUS ACIDOPHILUS (ACIDOPHILUS ORAL) Take by mouth. - MULTIVITAMIN ORAL Take by mouth. Pro (more content not included)... Normal [facility] HPV W/GENOTYPE THIN PREPon 0 03-29-2023 HPV 16 Ag Ql (Unsp spec) Negative Normal Negative for HPV DNA high risk type 16 by PCR [facility] Comment on above: Order Comment: Speci men Type: FLUID SPECIMEN Ordering Facility: [facility] Address: [address] [place] [address] Performed By: #### H PVHRT #### [facility] CLIA [id number] [address] [place] [address] [place] HPV 18 Ag Ql (Unsp spec) Negative Normal Negative for HPV DNA high risk type 18 by PCR [facility] Comment on above: Order Comment: Speci men Type: FLUID SPECIMEN Ordering Facility: [facility] Address: [address] [place] [address] Performed By: #### H PVHRT #### [facility] CLIA [id number] [address] [place] [address] HPV 31+33+35+39+45+51+52+5 6+58+59+66+68 DNA DIMITRY+probe Ql (Cvx) Negative for HPV DNA high risk types: 31,33,35,39,45,51,52, 56,58,59,66,68 by PCR. Normal Negative for HPV DNA high risk types: 31,33,35,39 ,45,51,52,5 6,58,59,66, 68 by PCR. [facility] Comment on above: Order Comment: Speci men Type: FLUID SPECIMEN Ordering Facility: [facility] Address: [address] [place] [address] Performed By: #### H PVHRT #### [facility] CLIA [id number] [address] [place] [address] PAP TESTon 03-29-2023 CASE REPORT Normal [facility] Comment on above: Order Comment: Speci men Type: FLUID SPECIMEN Ordering Facility: [facility] Address: [address] [place] [address] Result Comment: Gyne cologic Cytology Report Case: [id number] Authorizing Provider: Marques Paul MD Collected: 03/29/2023 11:55 AM Ordering Location: OB/Gynecology Received: 03/29/2023 01:43 PM First Screen: ДМИТРИЙ Mello, ASCP Pathologist: Johanny Chairez MD Specimen: Pap Test, ThinPrep, Cervix Performed By: #### L [id number] #### [facility] CLIA [id number] [address] [place] [address] Order Comment: Speci men Type: TISSUE SPECIMEN Ordering Facility: [facility] Address: [address] [place] [address] Result Comment: Surg ical Pathology Report Case: [id number] Authorizing Provider: Marques Paul MD Collected: 03/29/2023 11:55 AM Ordering Location: OB/Gynecology Received: 03/29/2023 01:40 PM Pathologist: Marilee Phillips MD Specimen: ENDOMETRIUM BIOPSY Performed By: #### S #### [facility] CLIA [id number] [address] [place] [address] [place] CLINICAL HISTORY, CYTOLOGY, IT TELECOM TECHNICIAN Post Menopausal Normal [facility] Comment on above: Order Comment: Speci men Type: FLUID SPECIMEN Ordering Facility: [facility] Address: [address] [place] [address] Performed By: #### L [id number] #### [facility] CLIA [id number] [address] [place] [address] STATES [facility] CYTOLOGY INTERPRETATION PAP Normal [facility] Comment on above: Order Comment: Speci men Type: FLUID SPECIMEN Ordering Facility: [facility] Address: [address] [place] [address] Result Comment: Nega tive for Intraepithelial lesion or malignancy. Performed By: #### L [id number] #### [facility] CLIA [id number] [address] [place] [address] FINAL DIAGNOSIS A - Cervix Normal [facility] Comment on above: Order Comment: Speci men Type: FLUID SPECIMEN Ordering Facility: [facility] Address: [address] [place] [address] Result Comment: Sati sfactory for interpretation. Negative for intraepithelial lesion or malignancy. Performed By: #### L [id number] #### [facility] CLIA [id number] [address] [place] [address] [place] FINAL PERFORMING LAB Normal [facility] Comment on above: Order Comment: Speci men Type: FLUID SPECIMEN Ordering Facility: [facility] Address: [address], [place] [address] Result Comment: Tech nical component, psychiatric clinician screening performed at [facility], [address] [facility] [address] CLIA# [id number] Diagnostic interpretation performed at [facility], [address] [id number] CLIA# [id number] Press Worker Helper: Giorgi Gil M.D. Performed By: #### L [id number] #### [facility] CLIA [id number] [address] [place] Order Comment: Speci men Type: TISSUE SPECIMEN Ordering Facility: [facility] Address: [address] [place] [address] Result Comment: Diag nostic interpretation performed at [facility], [address] [id number] CLIA# [id number] Press Worker Helper: Giorgi Gil M.D. Performed By: #### S #### [facility] CLIA [id number] [address] [place] [address] [place] HPV REFLEX Auto HPV Normal [facility] Comment on above: Order Comment: Speci men Type: FLUID SPECIMEN Ordering Facility: [facility] Address: [address] [address] Performed By: #### L [id number] #### [facility] CLIA [id number] [address] [place] [address] [place] LMP Post Menopausal Normal [facility] Comment on above: Order Comment: Speci men Type: FLUID SPECIMEN Ordering Facility: [facility] Address: [address] Performed By: #### L [id number] #### [facility] CLIA [id number] [address] [place] [address] [place] PAP DISCLAIMER COMMENT The Pap Smear is a screening test for cervical cancer. False negative results occur with all screening tests, emphasizing the need for rescreening at recommended intervals, and clinical correlation. Normal [facility] Comment on above: Order Comment: Speci men Type: FLUID SPECIMEN Ordering Facility: [facility] Address: [address] [place] [address] Performed By: #### L [id number] #### [facility] CLIA [id number] [address] [place] PAP POCKETBOOK MAKER COMMENT This specimen has been analyzed by the ThinPrep Imaging System, an automated imaging and review system, which assists the laboratory in evaluating cells on ThinPrep Pap tests. Following automated imaging, selected alvarez from every slide are reviewed by a psychiatric clinician. Normal [facility] Comment on above: Order Comment: Speci men Type: FLUID SPECIMEN Ordering Facility: [facility] Address: [address] [place] [address] Performed By: #### L [id number] #### [facility] CLIA [id number] [address] [place] [address] OF [facility] SURGICAL PATHOLOGYon 023 CLINICAL HISTORY [facility]ISTERED [facility] bleeding thickened endometrial lining Normal [facility] Comment on above: Order Comment: Clarita ball Type: TISSUE SPECIMEN Ordering Facility: [facility] Address: [address] [place] [address] Performed By: #### S #### [facility] CLIA [id number] [address] [place] [address] FINAL DIAGNOSIS Normal [facility] Comment on above: Order Comment: Speci men Type: TISSUE SPECIMEN Ordering Facility: [facility] Address: [address] [place] [address] Result Comment: Endo metrium, biopsy: 1. Fragments of benign endometrial polyp. 2. Superficial fragments of inactive to weakly proliferative pattern endometrium with stromal breakdown and associated metaplastic changes. 3. Scant benign squamous and endocervical mucosa. Performed By: #### S #### [facility] CLIA [id number] [address] [place], [place] [id number] [facility] GROSS DESCRIPTION Normal [facility] Comment on above: Order Comment: Speci men Type: TISSUE SPECIMEN Ordering Facility: [facility] Address: [place] [id number] Result Comment: A. E NDOMETRIUM BIOPSY Received in formalin are multiple vogel, soft feathery segments of tissue admixed with mucinous material aggregating to 1.3 x 1.2 x 0.1 cm. Totally submitted in one cassette. Gross examination performed at [facility] [place] [address] FFS 03/29/2023 11:10 PM Performed By: #### S #### [facility] CLIA [id number] [address] [place] [address] OF [facility] Astrid 01-29-2023 CNPN Telephone (OBGYWM) MARILIN BARLOW ([id number]) 1965 F Date Time Provider Department 01/29/23 MARQUES PAUL OBGY During your visit today, we recorded the following information about you: Lydia García LPN 01/29/2023 2:48 PM Signed ----- Message from Marques Paul MD sent at 01/29/2023 2:02 PM EST ----- ORder in, schedule EMB w/ me. Her ovaries look normal. Her lining is thick and for that we need to do a biopsy. I would recommend pretreat w/ ibuprofen 400-600 mg PO about 1 hour before procedure. Thanks. MD Lydia Perez LPN 01/29/2023 2:55 PM Signed Patient notified of results and mentioned that she is leaving for [place] this weekend and won't be back until mid February. Patient asking if ok to schedule endometrial biopsy when she returns? If not, please advise where she can be added to scheduled Marques Paul MD 01/29/2023 5:17 PM Signed 1 pm on or Sun or she can have w/ an CORE JAVA ENGINEER or CNM. Thanks. MD Chanelle Perez RN 01/30/2023 8:55 AM Signed Patient notified. Declines an appointment this week before leaving for [place]. Has several other appointments. She is now scheduled for March 29. Won't be back from [place] until end of February, beginning of March. She will see a doctor [place] if she has any problems. JONA Paul MD 01/30/2023 9:03 AM Signed noted. This biopsy is important to make sure there is not evidence of uterine cancer. If she would like to wait I just want to make sure she is aware of why we wanted to do the biopsy. I will see her March 29. Thanks. MD Chanelle Perez RN 01/30/2023 9:58 AM Signed Called patient. Patient notified of the below message. States when her bleeding initially started she saw her doctor who is in integrated medicine. CA125 ordered and was normal. Also, recently lost 25 pounds on a weight program. She appreciates the call. Will keep her March 29 visit. JONA Paul MD 01/30/2023 11:18 AM Signed Thanks for the update. Marques Paul MD Allergies As of Date: 01/29/2023 Noted Allergy Reaction CELEBREX (CELECOXIB) 08/27/2008 12 - Shortness of Breath DAIRY DIGESTIVE (LACTASE) 05/03/2006 Date Reviewed: 12/09/2019 Reviewed by: Marques Paul - Fully Assessed Reason for Visit: Results [95] Prescriptions as of 01/30/2023 - methocarbamol (ROBAXIN) 500 mg tablet TAKE 1/2 TABLET BY MOUTH TWICE DAILY NEEDED FOR PAIN - meloxicam (MOBIC) 15 mg tablet Take 15 mg by mouth once daily. - tiZANidine (ZANAFLEX) 4 mg tablet Take 2-4 mg by mouth twice daily as needed. - sertraline (ZOLOFT) 50 mg tablet Take 50 mg by mouth once daily. - LACTOBACILLUS ACIDOPHILUS (ACIDOPHILUS ORAL) Take by mouth. - MULTIVITAMIN ORAL Take by mouth. Problem List As Of Date 01/29/2023 Noted Resolved STASIS DERMATITIS///VENOUS INSUFFICIENCY NOS [I*02/07/2007 12/24/2014 STASIS DERMATITIS///LEG VARICOSITY W INFLAM [I8*02/07/2007 12/24/2014 Contact dermatitis and other eczema, due to uns*02/07/2007 12/24/2014 Cellulitis and abscess of leg, except foot [L03*02/07/2007 12/24/2014 Unspecified pruritic disorder [L29.9] 02/07/2007 12/24/2014 ZEROSIS///SEBACEOUS GLAND DIS NEC [L73.8] 02/07/2007 12/24/2014 Vulvar lesion [N90.89] 03/28/2012 04/11/2012 Morbid obesity (HCC) [E66.01] Diverticulosis [K57.90] Spondylolisthesis at L5-S1 level [M43.17] Renal cyst, right [N28.1] Hiatal hernia [K44.9] Varicose veins [I83.90] Left upper quadrant pain [R10.12] 02/11/2016 Mild intermittent asthma without complication [*02/11/2016 Diverticulosis of intestine without bleeding [K*02/11/2016 Dysphagia [R13.10] 02/23/2016 02/23/2016 LUQ pain [R10.12] 02/23/2016 02/23/2016 Screening for colon cancer [Z12.11] 02/23/2016 02/23/2016 Encounter Status:Closed by MARQUES PAUL on 01/30/23 Normal [facility] No Panel Informationon 01-25 [facility] FEMALE PELVIS TRANSABD LT Don 01-25-2023 FEMALE PELVIS TRANSABD LTD * * *Final Report* * * DATE OF EXAM: Jan 25 2023 9:59AM WRU 1059 - FEMALE PELVIS TRANSABD LTD / PROCEDURE REASON: PMB (postmenopausal bleeding) * * * * Physician Interpretation * * * * EXAMINATION: TRANSVAGINAL AND LIMITED TRANSABDOMINAL PELVIC ULTRASOUND CLINICAL HISTORY: Postmenopausal bleeding TECHNIQUE: Sonography of the pelvis was performed by transvaginal and transabdominal (limited) techniques. Images were obtained and stored in a permanent archive. MQ: UFP_1 COMPARISON: None RESULT: Uterus size: 7.6 x 2.9 x 4.4 cm -Orientation: Anteverted -Myometrium: Normal sonographic appearance. -Endometrial echo complex: 0.8 cm -Cervix: normal Bilaterally the ovaries could not be visualized. Pelvis free fluid: None. IMPRESSION: Thickening of the endometrium which measures 8 mm in thickness Golf Ball Cover Treater: [facility] Transcribe Date/Time: Jan 26 2023 1:17P Dictated by : ALLI CLARK MD This examination was interpreted and the report reviewed and electronically signed by: ALLI CLARK MD on Jan 26 2023 1:18PM EST [id number] N Normal [facility] US FEMALE PELVIS TRANSVAGon 01-25-2023 US FEMALE PELVIS TRANSVAG * * *Final Report* * * DATE OF EXAM: Jan 25 2023 9:59AM WRU 1060 - US FEMALE PELVIS TRANSVAG / PROCEDURE REASON: PMB (postmenopausal bleeding) * * * * Physician Interpretation * * * * EXAMINATION: TRANSVAGINAL AND LIMITED TRANSABDOMINAL PELVIC ULTRASOUND CLINICAL HISTORY: Postmenopausal bleeding TECHNIQUE: Sonography of the pelvis was performed by transvaginal and transabdominal (limited) techniques. Images were obtained and stored in a permanent archive. MQ: UFP_1 COMPARISON: None RESULT: Uterus size: 7.6 x 2.9 x 4.4 cm -Orientation: Anteverted -Myometrium: Normal sonographic appearance. -Endometrial echo complex: 0.8 cm -Cervix: normal Bilaterally the ovaries could not be visualized. Pelvis free fluid: None. IMPRESSION: Thickening of the endometrium which measures 8 mm in thickness Golf Ball Cover Treater: [facility] Transcribe Date/Time: Jan 26 2023 1:17P Dictated by : ALLI CLARK MD This examination was interpreted and the report reviewed and electronically signed by: ALLI CLARK MD on Jan 26 2023 1:18PM EST [id number] N Normal [facility] CNPRisa 01-12-2023 CNPN Telephone (OBGYWM) MARILIN BARLOW ([id number]) 1965 F Date Time Provider Department 01/12/23 MARQUES PAUL During your visit today, we recorded the following information about you: Aicha Teresa VELAZQUEZ 01/12/2023 4:08 PM Signed Pt calling and stated that she has not had any menses for the past 7-8yrs. She began bleeding fairly heavily Sunday evening, continued through today and has almost stopped at this point. Pt is now having low back pain. Attempted to schedule pt to be seen Sunday morning. Pt unable to be seen d/t having to be on a business trip out of town and will not return until the week of the 01/22/23. Pt was scheduled 01/24/23 with RR to be evaluated. Please advise with any further instructions. Aicha Paul MD 01/12/2023 4:50 PM Signed needs US and appointment, likely EMB. If recurs let us know. MD Mary Perez RN 01/12/2023 5:01 PM Signed Patient notified and voiced understanding. Transferred to PSS to schedule pelvic ultrasound and EMB. Mary Kaiser RN 01/15/2023 10:47 AM Signed PSS: Please contact patient to schedule pelvic ultrasound. Thank you. Mary Moore LPN 01/15/2023 2:21 PM Signed Appt scheduled. Aicha Moore LPN' Marques Paul MD 01/29/2023 2:02 PM Signed Addended by: MARQUES PAUL on: 01/29/2023 02:02 PM Modules accepted: Orders Allergies As of Date: 01/12/2023 Noted Allergy Reaction CELEBREX (CELECOXIB) 08/27/2008 12 - Shortness of Breath DAIRY DIGESTIVE (LACTASE) 05/03/2006 Date Reviewed: 12/09/2019 Reviewed by: Marques Paul - Fully Assessed Reason for Visit: Patient Update [1234] Primary Visit Diagnosis:PMB (postmenopausal bleeding) [N95.0] Other Visit Diagnosis:Thickened endometrium [R93.89] Order(s):US FEMALE PELVIS TRANSVAG [1209855] Order #: [id number] FUTURE US FEMALE PELVIS TRANSABD LTD [[id number]] Order #: [id number] FUTURE ENDOMETRIAL BIOPSY [[id number]] Order #: [id number] ENDOMETRIAL BIOPSY [[id number]] Reflex Order#: [id number] (Ord#:[id number]) Prescriptions as of 01/29/2023 - methocarbamol (ROBAXIN) 500 mg tablet TAKE 1/2 TABLET BY MOUTH TWICE DAILY NEEDED FOR PAIN - meloxicam (MOBIC) 15 mg tablet Take 15 mg by mouth once daily. - tiZANidine (ZANAFLEX) 4 mg tablet Take 2-4 mg by mouth twice daily as needed. - sertraline (ZOLOFT) 50 mg tablet Take 50 mg by mouth once daily. - LACTOBACILLUS ACIDOPHILUS (ACIDOPHILUS ORAL) Take by mouth. - MULTIVITAMIN ORAL Take by mouth. Problem List As Of Date 01/12/2023 Noted Resolved STASIS DERMATITIS///VENOUS INSUFFICIENCY NOS [I*02/07/2007 12/24/2014 STASIS DERMATITIS///LEG VARICOSITY W INFLAM [I8*02/07/2007 12/24/2014 Contact dermatitis and other eczema, due to uns*02/07/2007 12/24/2014 Cellulitis and abscess of leg, except foot [L03*02/07/2007 12/24/2014 Unspecified pruritic disorder [L29.9] 02/07/2007 12/24/2014 ZEROSIS///SEBACEOUS GLAND DIS NEC [L73.8] 02/07/2007 12/24/2014 Vulvar lesion [N90.89] 03/28/2012 04/11/2012 Morbid obesity (HCC) [E66.01] Diverticulosis [K57.90] Spondylolisthesis at L5-S1 level [M43.17] Renal cyst, right [N28.1] Hiatal hernia [K44.9] Varicose veins [I83.90] Left upper quadrant pain [R10.12] 02/11/2016 Mild intermittent asthma without complication [*02/11/2016 Diverticulosis of intestine without bleeding [K*02/11/2016 Dysphagia [R13.10] 02/23/2016 02/23/2016 LUQ pain [R10.12] 02/23/2016 02/23/2016 Screening for colon cancer [Z12.11] 02/23/2016 02/23/2016 Medications Discontinued During This Encounter Prescriptions - prednisoLONE sodium phosphate (INFLAMASE FORTE) 1 % ophthalmic solution (Discontinued) Use 1 Drop in the left eye four times daily. Encounter Status:Closed by AICHA MOORE LPN on 01/15/23 Normal [facility] Urinalysis, Office ([id number])Or dered By: Huber De Los Santos on 03-15-2021 Bilirubin Ql (U) Negative Normal Comprehe nsive Internal Medicine; [facility] Work Phone: Glucose Test strip (U) [Mass/Vol] Negative Normal [facility]; [facility] Work Phone: Hemoglobin Ql (U) Negative Normal Compreh ensive [facility]; [facility] Work Phone: Ketones Ql (U) Negative Normal Comprehens ary [facility]; [facility] Work Phone: Leukocyte esterase Test strip Ql (U) Negative Normal [facility]; [facility] Work Phone: Nitrite Ql (U) Negative Normal Comprehens ar[facility]; [facility] Work Phone: pH (U) 6 [pH] Abnormal [facility]; [facility] Work Phone: Protein Ql (U) Negative Normal Comprehens ary [facility]; [facility] Work Phone: Specific gravity (U) [Rel density] 1.010 1 Normal [facility]; [facility] Work Phone: Urobilinogen (24H U) [Mass/Time] Normal Normal [facility]; [facility] Work Phone: AMYLASE ([id number])Ordered By: Isabell mckeontem [employer] Computer Mechanic on 03-01-2021 Amylase [Catalytic activity/Vol] 31 U/L Normal 31-110 [facility]; [facility] Work Phone: Comment on above: PATIENT NOT FASTINGP ERFORMED BY: DEREK [facility] Vneltc[address] [facility]blin [place] [id number] CBC, PLATELETS & AUT DIFF ([id number])Ordered By: Drug Safety Associate on 03-01-2021 Basophils (Bld) [#/Vol] 0.1 {x10E3/uL} Normal 0.0-0.2 [facility]; [facility] Work Phone: Comment on above: PATIENT NOT FASTINGP ERFORMED BY: CB [facility] Ezrbmb7[address] RoadDublin [place] [id number] Basophils (Bld) [#/Vol] 0.1 10*3/uL Normal 0.0-0.2 [facility]; [facility] Work Phone: Comment on above: PATIENT NOT FASTINGP ERFORMED BY: DEREK [facility] Nywpzo17[address] RoadDuin [place] [id number] Basophils/100 WBC (Bld) 1 % Normal [facility]; [facility] Work Phone: Comment on above: PATIENT NOT FASTINGP ERFORMED BY: DEREK [facility] Mtqzhg75[address] RoadUnc Healthin [place] [id number] Eosinophils (Bld) [#/Vol] 0.3 {x10E3/uL} Normal 0.0-0.4 [facility]; [facility] Work Phone: Comment on above: PATIENT NOT FASTINGP ERFORMED BY: CB [facility] Rfceba2[address] RoadDublin [place] [id number] Eosinophils (Bld) [#/Vol] 0.3 10*3/uL Normal 0.0-0.4 [facility]; [facility] Work Phone: Comment on above: PATIENT NOT FASTINGP ERFORMED BY: CB [facility] Xtsibo[address] RoadDublin [place] [id number] Eosinophils/100 WBC (Bld) 4 % Normal [facility]; [facility] Work Phone: Comment on above: PATIENT NOT FASTINGP ERFORMED BY: CB [facility] Lhgtrk9[address] RoadUnc Healthin [place] [id number] Erythrocyte distribution width (RBC) [Ratio] 13.3 % Normal 11.7-15.4 [facility]; [facility] Work Phone: Comment on above: PATIENT NOT FASTINGP ERFORMED BY: DEREK Sosa6370 [facility] [id number] Hematocrit (Bld) [Volume fraction] 43.5 % Normal 34.0-46.6 [facility]; [facility] Work Phone: Comment on above: PATIENT NOT FASTINGP ERFORMED BY: DEREK Avilalin6370 [facility] [id number] Hemoglobin (Bld) [Mass/Vol] 14.1 g/dL Normal 11.1-15.9 [facility]; [facility] Work Phone: Comment on above: PATIENT NOT FASTINGP ERFORMED BY: DEREK Avilalin6370 [facility] [id number] Immature granulocytes (Bld) [#/Vol] 0.0 {x10E3/uL} Normal 0.0-0.1 [facility]; [facility] Work Phone: Comment on above: PATIENT NOT FASTINGP ERFORMED BY: DEREK Avilalin6370 [facility] [id number] Immature granulocytes (Bld) [#/Vol] 0.0 10*3/uL Normal 0.0-0.1 [facility]; [facility] Work Phone: Comment on above: PATIENT NOT FASTINGP ERFORMED BY: DEREK Avilalin6370 [facility] [id number] Immature granulocytes/100 WBC (Bld) 0 % Normal [facility]; [facility] Work Phone: Comment on above: PATIENT NOT FASTINGP ERFORMED BY: DEREK Avilalin6370 [facility] [id number] Lymphocytes (Bld) [#/Vol] 0.9 {x10E3/uL} Normal 0.7-3.1 [facility]; [facility] Work Phone: Comment on above: PATIENT NOT FASTINGP ERFORMED BY: CB [facility] Ybetzk8[address] RoadDublin [place] [id number] Lymphocytes (Bld) [#/Vol] 0.9 10*3/uL Normal 0.7-3.1 [facility]; [facility] Work Phone: Comment on above: PATIENT NOT FASTINGP ERFORMED BY: CB [facility] Tuoqip[address] RoadDublin [place] [id number] Lymphocytes/100 WBC (Bld) 15 % Normal [facility]; [facility] Work Phone: Comment on above: PATIENT NOT FASTINGP ERFORMED BY: CB [facility] Mhviug5[address] Roadblin [place] [id number] MCH (RBC) [Entitic mass] 30.2 pg Normal 26.6-33.0 [facility]; [facility] Work Phone: Comment on above: PATIENT NOT FASTINGP ERFORMED BY: CB [facility] Jlrsbo77[address] RoadUnc Healthin [place] [id number] MCHC (RBC) [Mass/Vol] 32.4 g/dL Normal 31.5-35.7 [facility] prehensive Internal Medicine; [facility] Work Phone: Comment on above: PATIENT NOT FASTINGP ERFORMED BY: CB [facility] Tcuhud[address] RoadDublin [place] [id number] MCV (RBC) [Entitic vol] 93 fL Normal 79-97 [facility]; [facility] Work Phone: Comment on above: PATIENT NOT FASTINGP ERFORMED BY: CB [facility] Snyafw[address] RoadDublin [place] [id number] Monocytes (Bld) [#/Vol] 0.5 {x10E3/uL} Normal 0.1-0.9 [facility]; [facility] Work Phone: Comment on above: PATIENT NOT FASTINGP ERFORMED BY: CB [facility] Whnsns39[address] RoadDublin [place] [id number] Monocytes (Bld) [#/Vol] 0.5 10*3/uL Normal 0.1-0.9 [facility]; [facility] Work Phone: Comment on above: PATIENT NOT FASTINGP ERFORMED BY: DEREK LabCoclau SosaTqtfsb58[address] RoadDublin [place] [id number] Monocytes/100 WBC (Bld) 8 % Normal [facility]; [facility] Work Phone: Comment on above: PATIENT NOT FASTINGP ERFORMED BY: CB [facility] Yatgbg80[address] RoadDublin [place] [id number] Neutrophils (Bld) [#/Vol] 4.0 {x10E3/uL} Normal 1.4-7.0 [facility]; [facility] Work Phone: Comment on above: PATIENT NOT FASTINGP ERFORMED BY: DEREK LabHarini AvilaYpqefm57[address] RoadDublin [place] [id number] Neutrophils (Bld) [#/Vol] 4.0 10*3/uL Normal 1.4-7.0 [facility]; [facility] Work Phone: Comment on above: PATIENT NOT FASTINGP ERFORMED BY: DEREK [facility] Jtxjlp[address] RoadDublin [place] [id number] Neutrophils/100 WBC (Bld) 72 % Normal [facility]; [facility] Work Phone: Comment on above: PATIENT NOT FASTINGP ERFORMED BY: DEREK [facility] Gepyki[address] RoadDublin [place] [id number] Platelets (Bld) [#/Vol] 288 {x10E3/uL} Normal 150-450 [facility]; [facility] Work Phone: Comment on above: PATIENT NOT FASTINGP ERFORMED BY: CB [facility] Gkzdcp40[address] RoadDublin [place] [id number] Platelets (Bld) [#/Vol] 288 10*3/uL Normal 150-450 [facility]; [facility] Work Phone: Comment on above: PATIENT NOT FASTINGP ERFORMED BY: CB [facility] Zcwfsy46[address] RoadDublin [place] [id number] RBC (Bld) [#/Vol] 4.67 {x10E6/uL} Normal 3.77-5.28 [facility]; [facility] Work Phone: Comment on above: PATIENT NOT FASTINGP ERFORMED BY: DEREK Sosa[address] RoadDublin [place] [id number] RBC (Bld) [#/Vol] 4.67 10*6/uL Normal 3.77-5.28 [facility]; [facility] Work Phone: Comment on above: PATIENT NOT FASTINGP ERFORMED BY: DEREK [facility] Biidix[address] RoadDublin [place] [id number] WBC (Bld) [#/Vol] 5.6 {x10E3/uL} Normal 3.4-10.8 [facility]; [facility] Work Phone: Comment on above: PATIENT NOT FASTINGP ERFORMED BY: DEREK LabHarini AvilaJahajt7[address] RoadDublin [place] [id number] WBC (Bld) [#/Vol] 5.6 10*3/uL Normal 3.4-10.8 [facility]; [facility] Work Phone: Comment on above: PATIENT NOT FASTINGP ERFORMED BY: DEREK Sosa[address] RoadDublin [place] [id number] Celiac Disease Comphrehensiv e Profile (74160)Ordered By: Drug Safety Associate on 03-01-2021 Endomysium IgA Ql (S) Negative Normal [facility] prehensive Internal Medicine; [facility] Work Phone: Comment on above: PATIENT NOT FASTINGP ERFORMED BY: DEREK [facility] Ujhavo[address] RoadDublin [place] [id number] Endomysium IgA Ql (S) Negative Normal [facility] prehensive Internal Medicine; [facility] Work Phone: Comment on above: PATIENT NOT FASTINGP ERFORMED BY: DEREK LabHarini AvilaNomljf[address] RoadDublin [place] [id number] Gliadin peptide IgA Qn (S) 4 {units} Normal 0-19 [facility]; [facility] Work Phone: Comment on above: Negative 0 - 19 Weak Positive 20 - 30 Moderate to Strong Positive >30 PATIENT NOT FASTINGP ERFORMED BY: DEREK LabHarini Cplmqj[address] Lovestruck.comWashington [facility] Center [id number] Gliadin peptide IgG Qn (S) 2 {units} Normal 0-19 [facility]; [facility] Work Phone: Comment on above: Negative 0 - 19 Weak Positive 20 - 30 Moderate to Strong Positive >30 PATIENT NOT FASTINGP ERFORMED BY: DEREK LabCoclau Cdhoez[address] Lovestruck.comUnc Healthin [place] [id number] IgA [Mass/Vol] 158 mg/dL Normal 87-352 Comprehens ary [facility]; [facility] Work Phone: Comment on above: PATIENT NOT FASTINGP ERFORMED BY: DEREK LabHarini Srufah[address] Lovestruck.comWashington Regional [facility] Center [id number] tTG IgA Qn (S) <2 Normal 0-3 Comprehens ary [facility]; [facility] Work Phone: Comment on above: Negative 0 - 3 Weak Positive 4 - 10 Positive >10 . Tissue Transglutaminase (tTG) has been identified as the endomysial antigen. Studies have demonstr- ated that endomysial IgA antibodies have over 99% specificity for gluten sensitive enteropathy. PATIENT NOT FASTINGP ERFORMED BY: DEREK LabHarini Ksdsea[address] Lovestruck.comWashington Regional [facility] Center [id number] tTG IgG Qn (S) <2 Normal 0-5 Comprehens ary [facility]; [facility] Work Phone: Comment on above: Negative 0 - 5 Weak Positive 6 - 9 Positive >9 PATIENT NOT FASTINGP ERFORMED BY: CB [facility] Qbldgt[address] Lovestruck.comWashington Regional Medical Center [id number] LIPASE ([id number])Ordered By: Edil [employer] Computer Mechanic on 03-01-2021 Lipase [Catalytic activity/Vol] 32 U/L Normal 14-72 [facility]; [facility] Work Phone: Comment on above: PATIENT NOT FASTINGP ERFORMED BY: DEREK [facility] Mnifar[address] Lovestruck.comUnc Healthin [place] [id number] Lyme Disease Antibody W/ Ref michel ([id number])Ordered By: Drug Safety Associate on 03-01-2021 B. burgdorferi IgG+IgM Qn (S) {index_val} Normal 0.00-0.90 [facility]; [facility] Work Phone: Comment on above: Negative <0.91 Equiv ocal 0.91 - 1.09 Positive >1.09 PATIENT NOT FASTINGP ERFORMED BY: [facility]6370 [facility] [id number] B. burgdorferi IgG+IgM Qn (S) {index_val} Normal 0.00-0.90 [facility]; [facility] Work Phone: Comment on above: Negative <0.91 Equiv ocal 0.91 - 1.09 Positive >1.09 PATIENT NOT FASTINGP ERFORMED BY: [facility]6370 [facility] [id number] Metabolic Panel, Comprehensi ve ([id number])Ordered By: Drug Safety Associate on 03-01-2021 Albumin [Mass/Vol] 4.5 g/dL Normal 3.8-4.9 [facility]; [facility] Work Phone: Comment on above: PATIENT NOT FASTINGP ERFORMED BY: [facility] Uekaln5777 [facility] [id number] Albumin/Globulin [Mass ratio] 1.7 {ratio} Normal 1.2-2.2 [facility]; [facility] Work Phone: Comment on above: PATIENT NOT FASTINGP ERFORMED BY: LabCo Kuertw0283 [facility] [id number] ALP [Catalytic activity/Vol] 93 [iU]/L Normal 39-117 [facility]; [facility] Work Phone: Comment on above: PATIENT NOT FASTINGP ERFORMED BY: [facility] Jhehaf7339 [facility] [id number] ALP [Catalytic activity/Vol] 93 U/L Normal 39-117 [facility]; [facility] Work Phone: Comment on above: PATIENT NOT FASTINGP ERFORMED BY: DEREK LabCoclau SosaQsiuze38[address] RoadDublin [place] [id number] ALT [Catalytic activity/Vol] 20 [iU]/L Normal 0-32 [facility]; [facility] Work Phone: Comment on above: PATIENT NOT FASTINGP ERFORMED BY: DEREK LabHarini AvilaOmevxm[address] RoadDublin [place] [id number] ALT [Catalytic activity/Vol] 20 U/L Normal 0-32 [facility]; [facility] Work Phone: Comment on above: PATIENT NOT FASTINGP ERFORMED BY: DEREK LabHarini AvilaYkkfkx16[address] RoadDublin [place] [id number] AST [Catalytic activity/Vol] 21 [iU]/L Normal 0-40 [facility]; [facility] Work Phone: Comment on above: PATIENT NOT FASTINGP ERFORMED BY: DEREK Avilalin[address] RoadDublin [place] [id number] AST [Catalytic activity/Vol] 21 U/L Normal 0-40 [facility]; [facility] Work Phone: Comment on above: PATIENT NOT FASTINGP ERFORMED BY: DEREK Sosa[address] RoadDublin [place] [id number] Bilirubin [Mass/Vol] 0.3 mg/dL Normal 0.0-1.2 Comp rehensive Internal Medicine; [facility] Work Phone: Comment on above: PATIENT NOT FASTINGP ERFORMED BY: DEREK [facility] Abbzqa[address] RoadDublin [place] [id number] Calcium [Mass/Vol] 9.6 mg/dL Normal 8.7-10.2 [facility]; [facility] Work Phone: Comment on above: PATIENT NOT FASTINGP ERFORMED BY: DEREK [facility] Nczvql80[address] RoadDublin [place] [id number] Chloride [Moles/Vol] 100 mmol/L Normal 96-106 Comp rehensive Internal Medicine; [facility] Work Phone: Comment on above: PATIENT NOT FASTINGP ERFORMED BY: CB [facility] Lrokdm17[address] RoadDublin [place] [id number] CO2 [Moles/Vol] 25 mmol/L Normal 20-29 [facility]; [facility] Work Phone: Comment on above: PATIENT NOT FASTINGP ERFORMED BY: CB [facility] Wesxzn56[address] RoadDublin [place] [id number] Creatinine [Mass/Vol] 0.79 mg/dL Normal 0.57-1.00 [facility] prehensive Internal Medicine; [facility] Work Phone: Comment on above: PATIENT NOT FASTINGP ERFORMED BY: CB [facility] Rbsroa[address] RoadDublin [place] [id number] GFR/1.73 sq M predicted among blacks CKD-EPI (S/P/Bld) [Vol rate/Area] 97 mL/min/1.73 Normal [facility]; [facility] Work Phone: Comment on above: PATIENT NOT FASTINGP ERFORMED BY: CB [facility] Rezyxk7[address] RoadDublin [place] [id number] GFR/1.73 sq M predicted among non-blacks CKD-EPI (S/P/Bld) [Vol rate/Area] 84 mL/min/1.73 Normal [facility]; [facility] Work Phone: Comment on above: PATIENT NOT FASTINGP ERFORMED BY: CB [facility] Xdudqm37[address] RoadDublin [place] [id number] Globulin (S) [Mass/Vol] 2.6 g/dL Normal 1.5-4.5 [facility]; [facility] Work Phone: Comment on above: PATIENT NOT FASTINGP ERFORMED BY: CB [facility] Lenyjv[address] RoadDublin [place] [id number] Glucose [Mass/Vol] 89 mg/dL Normal 65-99 [facility]; [facility] Work Phone: Comment on above: PATIENT NOT FASTINGP ERFORMED BY: CB [facility] Uqowwe027[address] RoadDublin [place] [id number] Potassium [Moles/Vol] 4.6 mmol/L Normal 3.5-5.2 [facility]; [facility] Work Phone: Comment on above: PATIENT NOT FASTINGP ERFORMED BY: DEREK LabCoclau AvilaNxokdt7601 [address] RoadDublin [place] [id number] Protein [Mass/Vol] 7.1 g/dL Normal 6.0-8.5 [facility]; [facility] Work Phone: Comment on above: PATIENT NOT FASTINGP ERFORMED BY: CB [facility] Xeyxqi65[address] RoadDublin [place] [id number] Sodium [Moles/Vol] 140 mmol/L Normal 134-144 [facility]; [facility] Work Phone: Comment on above: PATIENT NOT FASTINGP ERFORMED BY: DEREK Lab[facility] Qejgvq3529 [address] RoadDuin [place] [id number] Urea nitrogen [Mass/Vol] 10 mg/dL Normal 6-24 [facility]; [facility] Work Phone: Comment on above: PATIENT NOT FASTINGP ERFORMED BY: CB [facility] Eiuhyy044[address] Roadblin [place] [id number] Urea nitrogen/Creatinine [Mass ratio] 13 mg/mg Normal 9-23 [facility] Internal Medicine; [facility] Work Phone: Comment on above: PATIENT NOT FASTINGP ERFORMED BY: CB [facility] Dsrzsl16[address] RoadDublin [place] [id number] TSH (THYROID STIMULATING HOR JUANA) ([id number])Ordered By: Drug Safety Associate on 03-01-2021 TSH Qn 1.760 {uIU/mL} Normal 0.450-4.500 [facility]; [facility] Work Phone: Comment on above: PATIENT NOT FASTINGP ERFORMED BY: CB [facility] Trlbbp6215 [address] RoadDublin [place] [id number] TSH (THYROID STIMULATING HOR JUANA) ([id number])Ordered By: Drug Safety Associate on 04-20-2020 TSH Qn 1.180 {uIU/mL} Normal 0.450-4.500 [facility]; [facility] Work Phone: Comment on above: PATIENT NOT FASTINGP ERFORMED BY: DEREK Avilalin[address] Lovestruck.comUnc Healthin [place] [id number] CALCIFIDIOL ([id number]) VIT D 25 Ordered By: Drug Safety Associate on 10-09-2016 25-Hydroxyvitamin D2+25-Hydroxyvitamin D3 [Mass/Vol] 62.0 ng/mL Normal 30.0-100.0 [facility]; [facility] Work Phone: Comment on above: Vitamin D deficiency has been defined by the [place] and an Endocrine Society practice guideline as alevel of serum 25-OH vitamin D less than 20 ng/mL (1,2).The Endocrine Society went on to further define vitamin Dinsufficiency as a level between 21 and 29 ng/mL (2).1. IOM ([place]). 2010. Dietary reference intakes for calcium and D. [place]: The National Academies Press.2. Jyoti MF, Ramana RIGGS, Jamilah MANZO, et al. Evaluation, treatment, and prevention of vitamin D deficiency: an Endocrine Society clinical practice guideline. JCEM. 2010; 96(7):1911-30. PATIENT WAS FASTINGP ERFORMED BY: DEREK [employer] [facility] HospitalMobilewallaWilson Medical Center [id number] LIPID PANEL ([id number])Ordered B y: Drug Safety Associate on 10-09-2016 Cholesterol [Mass/Vol] 210 mg/dL Abnormal 100-199 [facility]al[facility]; [facility] Work Phone: Comment on above: PATIENT WAS FASTINGP ERFORMED BY: DEREK Vitryn Lgbjct0233 [facility] Hospitalin [place] [id number] Cholesterol in HDL [Mass/Vol] 57 mg/dL Normal [facility]; [facility] Work Phone: Comment on above: According to ATP-III Guidelines, HDL-C >59 mg/dL is considered anegative risk factor for CHD. PATIENT WAS FASTINGP ERFORMED BY: Frugoton[address] [facility] [id number] Cholesterol in LDL [Mass/Vol] 137 mg/dL Abnormal 0-99 [facility]; [facility] Work Phone: Comment on above: PATIENT WAS FASTINGP ERFORMED BY: DEREK LabHarini AvilaOrkrlc6577 [facility] [id number] Cholesterol in LDL/Cholesterol in HDL [Mass ratio] 2.4 {ratio_units} Normal 0.0-3.2 [facility]; [facility] Work Phone: Comment on above: LDL/HDL Ratio Men Wo men 1/2 Avg.Risk 1.0 1.5 Avg.Risk 3.6 3.2 2X Avg.Risk 6.2 5.0 3X Avg.Risk 8.0 6.1 PATIENT WAS FASTINGP ERFORMED BY: DEREK [facility] CenterIván Fmokxd9887 [facility] [id number] Cholesterol in VLDL [Mass/Vol] 16 mg/dL Normal 5-40 [facility]; [facility] Work Phone: Comment on above: PATIENT WAS FASTINGP ERFORMED BY: DEREK Avilalin6370 [facility] [id number] Triglyceride [Mass/Vol] 81 mg/dL Normal 0-149 [facility]; [facility] Work Phone: Comment on above: PATIENT WAS FASTINGP ERFORMED BY: DEREK LabHarini Oopknf1540 [facility] [id number] AMYLASE ([id number])Ordered By: Isabell [employer] Computer Mechanic on 09-05-2016 Amylase [Catalytic activity/Vol] 31 U/L Normal 31-124 [facility]; [facility] Work Phone: Comment on above: PATIENT NOT FASTINGP ERFORMED BY: DEREK LabCo Ybyiwf5914 [facility] [id number] CBC W/AUTO DIFF WBC (90089)O rdered By: Drug Safety Associate on 09-05-2016 Basophils (Bld) [#/Vol] 0.1 {x10E3/uL} Normal 0.0-0.2 [facility]; [facility] Work Phone: Comment on above: PATIENT NOT FASTINGP ERFORMED BY: CB [facility] Lsjxlt0550 [address] RoadDublin [place] [id number] Basophils (Bld) [#/Vol] 0.1 10*3/uL Normal 0.0-0.2 [facility]; [facility] Work Phone: Comment on above: PATIENT NOT FASTINGP ERFORMED BY: CB [facility] Geodcm6034 [address] RoadDublin [place] [id number] Basophils/100 WBC (Bld) 1 % Normal [facility]; [facility] Work Phone: Comment on above: PATIENT NOT FASTINGP ERFORMED BY: CB [facility] Zgpqtx4490 [address] RoadDublin [place] [id number] Eosinophils (Bld) [#/Vol] 0.2 {x10E3/uL} Normal 0.0-0.4 [facility]; [facility] Work Phone: Comment on above: PATIENT NOT FASTINGP ERFORMED BY: CB [facility] Tvbbvk8111 [address] RoadDublin [place] [id number] Eosinophils (Bld) [#/Vol] 0.2 10*3/uL Normal 0.0-0.4 [facility]; [facility] Work Phone: Comment on above: PATIENT NOT FASTINGP ERFORMED BY: CB [facility] Jjqohj7380 [address] RoadDublin [place] [id number] Eosinophils/100 WBC (Bld) 2 % Normal [facility]; [facility] Work Phone: Comment on above: PATIENT NOT FASTINGP ERFORMED BY: CB [facility] Gmjobw0467 [address] RoadDublin [place] [id number] Erythrocyte distribution width (RBC) [Ratio] 13.2 % Normal 12.3-15.4 [facility]; [facility] Work Phone: Comment on above: PATIENT NOT FASTINGP ERFORMED BY: CB [facility] Yttoej8949 [address] RoadDublin [place] [id number] Hematocrit (Bld) [Volume fraction] 42.0 % Normal 34.0-46.6 [facility]; [facility] Work Phone: Comment on above: PATIENT NOT FASTINGP ERFORMED BY: DEREK Sosa6[address] [facility] [place] [id number] Hemoglobin (Bld) [Mass/Vol] 14.1 g/dL Normal 11.1-15.9 [facility]; [facility] Work Phone: Comment on above: PATIENT NOT FASTINGP ERFORMED BY: CB LabCoclau AvilaLalfhi9105 [address] RoadDublin [place] [id number] Immature granulocytes (Bld) [#/Vol] 0.0 {x10E3/uL} Normal 0.0-0.1 [facility]; [facility] Work Phone: Comment on above: PATIENT NOT FASTINGP ERFORMED BY: DEREK Avilalin6370 [address] RoadDuin [place] [id number] Immature granulocytes (Bld) [#/Vol] 0.0 10*3/uL Normal 0.0-0.1 [facility]; [facility] Work Phone: Comment on above: PATIENT NOT FASTINGP ERFORMED BY: DEREK Sosa[address] [facility] HospitalDuin [place] [id number] Immature granulocytes/100 WBC (Bld) 0 % Normal [facility]; [facility] Work Phone: Comment on above: PATIENT NOT FASTINGP ERFORMED BY: DEREK Avilalin6[address] [facility] [place] [id number] Lymphocytes (Bld) [#/Vol] 1.4 {x10E3/uL} Normal 0.7-3.1 [facility]; [facility] Work Phone: Comment on above: PATIENT NOT FASTINGP ERFORMED BY: DEREK [facility] Gxmltx6086 [address] RoadDublin [place] [id number] Lymphocytes (Bld) [#/Vol] 1.4 10*3/uL Normal 0.7-3.1 [facility]; [facility] Work Phone: Comment on above: PATIENT NOT FASTINGP ERFORMED BY: CB [facility] Xaypgq1346 [address] RoadDublin [place] [id number] Lymphocytes/100 WBC (Bld) 16 % Normal [facility]; [facility] Work Phone: Comment on above: PATIENT NOT FASTINGP ERFORMED BY: DEREK Sosa6370 [facility] [id number] MCH (RBC) [Entitic mass] 31.6 pg Normal 26.6-33.0 [facility]; [facility] Work Phone: Comment on above: PATIENT NOT FASTINGP ERFORMED BY: DEREK KeyCo Qatehh4556 [facility] [id number] MCHC (RBC) [Mass/Vol] 33.6 g/dL Normal 31.5-35.7 [facility] prehensive Internal Medicine; [facility] Work Phone: Comment on above: PATIENT NOT FASTINGP ERFORMED BY: [facility] Ksrkhj1681 [facility] [id number] MCV (RBC) [Entitic vol] 94 fL Normal 79-97 [facility]; [facility] Work Phone: Comment on above: PATIENT NOT FASTINGP ERFORMED BY: DEREK Qureshi Ppezpo1275 [facility] [id number] Monocytes (Bld) [#/Vol] 0.6 {x10E3/uL} Normal 0.1-0.9 [facility]; [facility] Work Phone: Comment on above: PATIENT NOT FASTINGP ERFORMED BY: DEREK Qureshi Yfyuib8207 [facility] [id number] Monocytes (Bld) [#/Vol] 0.6 10*3/uL Normal 0.1-0.9 [facility]; [facility] Work Phone: Comment on above: PATIENT NOT FASTINGP ERFORMED BY: DEREK Qureshi Jsxsib1403 [facility] [id number] Monocytes/100 WBC (Bld) 7 % Normal [facility]; [facility] Work Phone: Comment on above: PATIENT NOT FASTINGP ERFORMED BY: DEREK LabCoclau AvilaPwgyfp6024 [address] RoadDublin [place] [id number] Neutrophils (Bld) [#/Vol] 6.3 {x10E3/uL} Normal 1.4-7.0 [facility]; [facility] Work Phone: Comment on above: PATIENT NOT FASTINGP ERFORMED BY: DEREK LabHarini AvilaAyguhe9574 [address] RoadDublin [place] [id number] Neutrophils (Bld) [#/Vol] 6.3 10*3/uL Normal 1.4-7.0 [facility]; [facility] Work Phone: Comment on above: PATIENT NOT FASTINGP ERFORMED BY: DEREK LabHarini Sosa6[address] RoadDublin [place] [id number] Neutrophils/100 WBC (Bld) 74 % Normal [facility]; [facility] Work Phone: Comment on above: PATIENT NOT FASTINGP ERFORMED BY: DEREK Sosa6[address] RoadD[address] [place] [id number] Platelets (Bld) [#/Vol] 281 {x10E3/uL} Normal 150-379 [facility]; [facility] Work Phone: Comment on above: PATIENT NOT FASTINGP ERFORMED BY: DEREK Sosa6[address] RoadD[address] [place] [id number] Platelets (Bld) [#/Vol] 281 10*3/uL Normal 150-379 [facility]; [facility] Work Phone: Comment on above: PATIENT NOT FASTINGP ERFORMED BY: CB [facility] Zlcwrz1327 [address] RoadDublin [place] [id number] RBC (Bld) [#/Vol] 4.46 {x10E6/uL} Normal 3.77-5.28 [facility] Internal Medicine; [facility] Work Phone: Comment on above: PATIENT NOT FASTINGP ERFORMED BY: DEREK LabCoclau AvilaLtshsv6258 [address] RoadDublin [place] [id number] RBC (Bld) [#/Vol] 4.46 10*6/uL Normal 3.77-5.28 [facility]; [facility] Work Phone: Comment on above: PATIENT NOT FASTINGP ERFORMED BY: DEREK Sosa6[address] RoadDublin [place] [id number] WBC (Bld) [#/Vol] 8.6 {x10E3/uL} Normal 3.4-10.8 [facility] Internal Medicine; [facility] Work Phone: Comment on above: PATIENT NOT FASTINGP ERFORMED BY: DEREK [facility] Khjvye2609 [address] RoadDublin [place] [id number] WBC (Bld) [#/Vol] 8.6 10*3/uL Normal 3.4-10.8 [facility] Internal Medicine; [facility] Work Phone: Comment on above: PATIENT NOT FASTINGP ERFORMED BY: DEREK LabHarini AvilaMhgzel2[address] RoadDublin [place] [id number] LIPASE ([id number])Ordered By: [employer] Computer Mechanic on 09-05-2016 Lipase [Catalytic activity/Vol] 29 U/L Normal 0-59 [facility]; [facility] Work Phone: Comment on above: PATIENT NOT FASTINGP ERFORMED BY: DEREK LabHarini AvilaWlxkwn7601 [address] RoadDublin [place] [id number] METABOLIC PANEL, COMPREHENSI VE ([id number])Ordered By: Drug Safety Associate on 09-05-2016 Albumin [Mass/Vol] 4.3 g/dL Normal 3.5-5.5 [facility]; [facility] Work Phone: Comment on above: PATIENT NOT FASTINGP ERFORMED BY: DEREK [facility] Aygsra6694 [address] RoadDublin [place] [id number] Albumin/Globulin [Mass ratio] 1.5 {ratio} Normal 1.1-2.5 [facility] Internal Medicine; [facility] Work Phone: Comment on above: PATIENT NOT FASTINGP ERFORMED BY: DEREK [facility] Wwrxvj3767 [address] RoadDublin [place] [id number] ALP [Catalytic activity/Vol] 60 [iU]/L Normal 39-117 [facility]; [facility] Work Phone: Comment on above: PATIENT NOT FASTINGP ERFORMED BY: DEREK LabCoclau Igfffj5410 [address] RoadDublin [place] [id number] ALP [Catalytic activity/Vol] 60 U/L Normal 39-117 [facility]; [facility] Work Phone: Comment on above: PATIENT NOT FASTINGP ERFORMED BY: CB [facility] Adrbfb2935 [address] RoadDublin [place] [id number] ALT [Catalytic activity/Vol] 20 [iU]/L Normal 0-32 [facility]; [facility] Work Phone: Comment on above: PATIENT NOT FASTINGP ERFORMED BY: CB LabCoclau AvilaOjtaeo2162 [address] RoadDublin [place] [id number] ALT [Catalytic activity/Vol] 20 U/L Normal 0-32 [facility]; [facility] Work Phone: Comment on above: PATIENT NOT FASTINGP ERFORMED BY: CB LabCoclau AvilaRvqdmo[address] RoadDublin [place] [id number] AST [Catalytic activity/Vol] 21 [iU]/L Normal 0-40 [facility]; [facility] Work Phone: Comment on above: PATIENT NOT FASTINGP ERFORMED BY: DEREK Avilalin6[address] RoadDublin [place] [id number] AST [Catalytic activity/Vol] 21 U/L Normal 0-40 [facility]; [facility] Work Phone: Comment on above: PATIENT NOT FASTINGP ERFORMED BY: CB [facility] Mqdstc2902 [address] RoadDublin [place] [id number] Bilirubin [Mass/Vol] 0.3 mg/dL Normal 0.0-1.2 Comp [facility]; [facility] Work Phone: Comment on above: PATIENT NOT FASTINGP ERFORMED BY: CB [facility] Eflndo3185 [address] RoadDublin [place] [id number] Calcium [Mass/Vol] 9.7 mg/dL Normal 8.7-10.2 [facility]; [facility] Work Phone: Comment on above: PATIENT NOT FASTINGP ERFORMED BY: CB [facility] Ctnsav7545 [address] RoadDublin [place] [id number] Chloride [Moles/Vol] 96 mmol/L Abnormal 97-108 [facility] rehensive Internal Medicine; [facility] Work Phone: Comment on above: Effective September 11, 2016 the reference interval for Chloride, Serum will be changing to: 97 - 106 PATIENT NOT FASTINGP ERFORMED BY: CB [facility] Renice3834 [address] RoadDublin [place] [id number] CO2 [Moles/Vol] 25 mmol/L Normal 18-29 [facility] Internal Medicine; [facility] Work Phone: Comment on above: PATIENT NOT FASTINGP ERFORMED BY: CB [facility] Ssailn5710 [address] RoadDublin [place] [id number] Creatinine [Mass/Vol] 0.68 mg/dL Normal 0.57-1.00 [facility]; [facility] Work Phone: Comment on above: PATIENT NOT FASTINGP ERFORMED BY: CB [facility] Lyjcir9801 [address] RoadDublin [place] [id number] GFR/1.73 sq M predicted among blacks CKD-EPI (S/P/Bld) [Vol rate/Area] 116 mL/min/1.73 Normal [facility]; [facility] Work Phone: Comment on above: PATIENT NOT FASTINGP ERFORMED BY: CB [facility] Gmthqg9255 [address] RoadDublin [place] [id number] GFR/1.73 sq M predicted among non-blacks CKD-EPI (S/P/Bld) [Vol rate/Area] 101 mL/min/1.73 Normal [facility]; [facility] Work Phone: Comment on above: PATIENT NOT FASTINGP ERFORMED BY: CB [facility] Cchhvi4968 [address] RoadDublin [place] [id number] Globulin (S) [Mass/Vol] 2.8 g/dL Normal 1.5-4.5 [facility]; [facility] Work Phone: Comment on above: PATIENT NOT FASTINGP ERFORMED BY: DEREK LabHarini AvilaNhnhbl[address] [facility] [place] [id number] Glucose [Mass/Vol] 82 mg/dL Normal 65-99 [facility] Internal Medicine; [facility] Work Phone: Comment on above: PATIENT NOT FASTINGP ERFORMED BY: DEREK LabHarini AvilaPhvmpq34[address] [facility] [place] [id number] Potassium [Moles/Vol] 4.4 mmol/L Normal 3.5-5.2 [facility] Internal Medicine; [facility] Work Phone: Comment on above: Effective September 11, 2016 the reference interval for Potassium, Serum will be changing to: 0 - 7 days 3.7 - 5.2 8 - 30 days 3.7 - 6.4 1 - 6 months 3.8 - 6.0 7 months - 1 year 3.8 - 5.3 >1 year 3.5 - 5.2 PATIENT NOT FASTINGP ERFORMED BY: DEREK LabHarini AvilaPouowe[address] [facility] [place] [id number] Protein [Mass/Vol] 7.1 g/dL Normal 6.0-8.5 [facility] Internal Medicine; [facility] Work Phone: Comment on above: PATIENT NOT FASTINGP ERFORMED BY: DEREK LabHarini AvilaThztne[address] [facility] [place] [id number] Sodium [Moles/Vol] 140 mmol/L Normal 134-144 [facility] Internal [facility]; [facility] Work Phone: Comment on above: Effective September 11, 2016 the reference interval for Sodium, Serum will be changing to: 136 - 144 PATIENT NOT FASTINGP ERFORMED BY: DEREK [facility] Wqocrw7963 [address] [facility] [place] [id number] Urea nitrogen [Mass/Vol] 19 mg/dL Normal 6-24 [facility] Internal Medicine; [facility] Work Phone: Comment on above: PATIENT NOT FASTINGP ERFORMED BY: DEREK [facility] Qesaqz0854 [address] [facility] [id number] Urea nitrogen/Creatinine [Mass ratio] 28 mg/mg Abnormal 9-23 [facility]; [facility] Work Phone: Comment on above: PATIENT NOT FASTINGP ERFORMED BY: DEREK [facility] Rogooe6[address] [facility] [id number] Sed Rate Erythrocyte (76651) Ordered By: Drug Safety Associate on 09-05-2016 ESR (Bld) [Velocity] 4 mm/h Normal 0-40 [facility] Internal Medicine; [facility] Work Phone: Comment on above: PATIENT NOT FASTINGP ERFORMED BY: CB [facility] Krrdeq4863 [address] [facility] [id number] CBC (AUTO) ([id number])Ordered By : Drug Safety Associate on 01-09-2014 Erythrocyte distribution width (RBC) [Ratio] 13.3 % Normal 12.3-15.4 [facility]; [facility] Work Phone: Comment on above: PATIENT NOT FASTINGP ERFORMED BY: CB [facility] Leosgv0093 RootSSM [facility] [id number] Hematocrit (Bld) [Volume fraction] 41.6 % Normal 34.0-46.6 [facility]; [facility] Work Phone: Comment on above: PATIENT NOT FASTINGP ERFORMED BY: DEREK [facility] Nypfwt8429 [facility] [id number] Hemoglobin (Bld) [Mass/Vol] 13.7 g/dL Normal 11.1-15.9 [facility]; [facility] Work Phone: Comment on above: PATIENT NOT FASTINGP ERFORMED BY: CB [facility] Livzwm0598 [address] [facility] [id number] MCH (RBC) [Entitic mass] 30.1 pg Normal 26.6-33.0 [facility]; [facility] Work Phone: Comment on above: PATIENT NOT FASTINGP ERFORMED BY: CB [facility] Livneq3197 [facility] [id number] MCHC (RBC) [Mass/Vol] 32.9 g/dL Normal 31.5-35.7 [facility] prehensive Internal Medicine; [facility] Work Phone: Comment on above: PATIENT NOT FASTINGP ERFORMED BY: DEREK LabCoclau SosaHeddcs0499 [address] RoadDublin [place] [id number] MCV (RBC) [Entitic vol] 91 fL Normal 79-97 [facility]; [facility] Work Phone: Comment on above: PATIENT NOT FASTINGP ERFORMED BY: CB [facility] Jzubce8909 [address] RoadDublin [place] [id number] Platelets (Bld) [#/Vol] 326 {x10E3/uL} Normal 155-379 [facility]; [facility] Work Phone: Comment on above: PATIENT NOT FASTINGP ERFORMED BY: CB [facility] Opwgao2400 [address] RoadDublin [place] [id number] Platelets (Bld) [#/Vol] 326 10*3/uL Normal 155-379 [facility]; [facility] Work Phone: Comment on above: PATIENT NOT FASTINGP ERFORMED BY: CB [facility] Inqzxf3501 [address] RoadDublin [place] [id number] RBC (Bld) [#/Vol] 4.55 {x10E6/uL} Normal 3.77-5.28 [facility]; [facility] Work Phone: Comment on above: PATIENT NOT FASTINGP ERFORMED BY: CB [facility] Ljsdis9118 [address] RoadDublin [place] [id number] RBC (Bld) [#/Vol] 4.55 10*6/uL Normal 3.77-5.28 [facility]; [facility] Work Phone: Comment on above: PATIENT NOT FASTINGP ERFORMED BY: CB [facility] Mvfhfx6054 [address] RoadDublin [place] [id number] WBC (Bld) [#/Vol] 8.2 {x10E3/uL} Normal 3.4-10.8 [facility] prehensive Internal Medicine; [facility] Work Phone: Comment on above: PATIENT NOT FASTINGP ERFORMED BY: DEREK LabCoclau AvilaBjxjhc3009 [address] [facility] [place] [id number] WBC (Bld) [#/Vol] 8.2 10*3/uL Normal 3.4-10.8 [facility] Internal Medicine; [facility] Work Phone: Comment on above: PATIENT NOT FASTINGP ERFORMED BY: DEREK [facility] Zhfnhz7334 RootSSM [facility] [id number] METABOLIC PANEL, COMPREHENSI VE (40061)Ordered By: Drug Safety Associate on 01-09-2014 Albumin [Mass/Vol] 4.2 g/dL Normal 3.5-5.5 [facility] Internal Medicine; [facility] Work Phone: Comment on above: PATIENT NOT FASTINGP ERFORMED BY: DEREK LabCoclau SosaZdfzfe2202 [facility] [id number] Information: [id number], [id number] Albumin/Globulin [Mass ratio] 1.5 {ratio} Normal 1.1-2.5 [facility]; [facility] Work Phone: Comment on above: PATIENT NOT FASTINGP ERFORMED BY: DEREK LabCo Nkqjny4390 RootSSM [facility] [id number] Information: [id number], [id number] ALP [Catalytic activity/Vol] 57 [iU]/L Normal 39-117 [facility]; [facility] Work Phone: Comment on above: PATIENT NOT FASTINGP ERFORMED BY: DEREK [facility] Xqugat1146 [address] [facility] [id number] Information: [id number], [id number] ALP [Catalytic activity/Vol] 57 U/L Normal 39-117 [facility]; [facility] Work Phone: Comment on above: PATIENT NOT FASTINGP ERFORMED BY: DEREK [facility] Lrrvfm9415 RootSSM [facility] [id number] Information: [id number], [id number] ALT [Catalytic activity/Vol] 16 [iU]/L Normal 0-32 [facility]; [facility] Work Phone: Comment on above: PATIENT NOT FASTINGP ERFORMED BY: DEREK Sosa6370 [facility] [id number] Information: [id number], [id number] ALT [Catalytic activity/Vol] 16 U/L Normal 0-32 [facility]; [facility] Work Phone: Comment on above: PATIENT NOT FASTINGP ERFORMED BY: DEREK Sosa6370 [facility] [id number] Information: [id number], [id number] AST [Catalytic activity/Vol] 19 [iU]/L Normal 0-40 [facility]; [facility] Work Phone: Comment on above: PATIENT NOT FASTINGP ERFORMED BY: DEREK Sosa6370 [facility] [id number] Information: [id number], [id number] AST [Catalytic activity/Vol] 19 U/L Normal 0-40 [facility]; [facility] Work Phone: Comment on above: PATIENT NOT FASTINGP ERFORMED BY: DEREK Sosa6370 [facility] [id number] Information: [id number], [id number] Bilirubin [Mass/Vol] 0.3 mg/dL Normal 0.0-1.2 Comp rehensive Internal Medicine; [facility] Work Phone: Comment on above: PATIENT NOT FASTINGP ERFORMED BY: DEREK Avilalin6370 [facility] [id number] Information: [id number], 349717 Calcium [Mass/Vol] 9.5 mg/dL Normal 8.7-10.2 [facility]; [facility] Work Phone: Comment on above: PATIENT NOT FASTINGP ERFORMED BY: DEREK Avilalin6370 [facility] [id number] Information: [id number], [id number] Chloride [Moles/Vol] 98 mmol/L Normal 97-108 Comp rehensive Internal Medicine; [facility] Work Phone: Comment on above: PATIENT NOT FASTINGP ERFORMED BY: DEREK [facility] Ncoqoy8049 [address] [facility] [place] [id number] Information: [id number], 626680 CO2 [Moles/Vol] 27 mmol/L Normal 19-28 [facility] Internal Medicine; [facility] Work Phone: Comment on above: PATIENT NOT FASTINGP ERFORMED BY: CB [facility] Gtyipu8452 [address] [facility] [place] [id number] Information: C50192, 192282 Creatinine [Mass/Vol] 0.70 mg/dL Normal 0.57-1.00 [facility]; [facility] Work Phone: Comment on above: PATIENT NOT FASTINGP ERFORMED BY: DEREK [facility] Zyrfjz9413 [address] [facility] [id number] Information: [id number], 956527 GFR/1.73 sq M predicted among blacks CKD-EPI (S/P/Bld) [Vol rate/Area] 118 mL/min/1.73 Normal [facility]; [facility] Work Phone: Comment on above: PATIENT NOT FASTINGP ERFORMED BY: DEREK KeyCoclau AvilaQykltc5521 [address] [facility] [id number] Information: [id number], 627308 GFR/1.73 sq M predicted among non-blacks CKD-EPI (S/P/Bld) [Vol rate/Area] 102 mL/min/1.73 Normal [facility]; [facility] Work Phone: Comment on above: PATIENT NOT FASTINGP ERFORMED BY: CB [facility] Eeuujf0782 [address] [facility] [id number] Information: M08015, 470854 Globulin (S) [Mass/Vol] 2.8 g/dL Normal 1.5-4.5 [facility]; [facility] Work Phone: Comment on above: PATIENT NOT FASTINGP ERFORMED BY: CB [facility] Sunpjv3395 Root RoadUnc Healthin [place] [id number] Information: [id number], 254175 Glucose [Mass/Vol] 86 mg/dL Normal 65-99 [facility] Internal Medicine; [facility] Work Phone: Comment on above: PATIENT NOT FASTINGP ERFORMED BY: DEREK Sosa[address] [facility] [id number] Information: [id number], 026587 Potassium [Moles/Vol] 4.6 mmol/L Normal 3.5-5.2 [facility] Internal Medicine; [facility] Work Phone: Comment on above: PATIENT NOT FASTINGP ERFORMED BY: DEREK LabCoclau AvilaAzoluc8963 [address] [facility] [id number] Information: [id number], 010010 Protein [Mass/Vol] 7.0 g/dL Normal 6.0-8.5 [facility] Internal Medicine; [facility] Work Phone: Comment on above: PATIENT NOT FASTINGP ERFORMED BY: DEREK LabCoclau AvilaNkaewi2383 [facility] [id number] Information: B50241, 755803 Sodium [Moles/Vol] 138 mmol/L Normal 134-144 [facility] Internal Medicine; [facility] Work Phone: Comment on above: PATIENT NOT FASTINGP ERFORMED BY: DEREK LabCoclau AvilaVpytae5147 [facility] [id number] Information: Y00903, 255252 Urea nitrogen [Mass/Vol] 18 mg/dL Normal 6-24 [facility]; [facility] Work Phone: Comment on above: PATIENT NOT FASTINGP ERFORMED BY: CB [facility] Kodvjk6230 [address] [facility] [id number] Information: A99294, 351534 Urea nitrogen/Creatinine [Mass ratio] 26 mg/mg Abnormal 9-23 [facility]; [facility] Work Phone: Comment on above: PATIENT NOT FASTINGP ERFORMED BY: CB [facility] Fcnxgt2052 [address] [facility] [id number] Information: F09243, 906530 PROLACTIN (82586)Ordered By: Drug Safety Associate on 01-09-2014 Prolactin [Mass/Vol] 5.8 ng/mL Normal 4.8-23.3 [facility] Internal Medicine; [facility] Internal Medicine Work Phone: Comment on above: PATIENT NOT FASTINGP ERFORMED BY: CardioLogs [facility] Skkcbl9397 Root RoadDublin [place] [id number] PT (PROTHROMBIN TIME) (27612 )Ordered By: Drug Safety Associate on 01-09-2014 INR Coag (PPP) [Relative time] 0.9 {INR} Normal 0.8-1.2 [facility] Internal Medicine; [facility] Internal Medicine Work Phone: Comment on above: Reference interval i s for non-anticoagulated patients. . Suggested INR therapeutic range for Vitamin K antagonist therapy: Standard Dose (moderate intensity therapeutic range): 2.0 - 3.0 Higher intensity therapeutic range 2.5 - 3.5 PATIENT NOT FASTINGP ERFORMED BY: [facility] Cfvvuj5469 Root RoadDublin [place] [id number] PT Coag (PPP) [Time] 9.9 {sec} Normal 9.1-12.0 [facility]; [facility] Work Phone: Comment on above: PATIENT NOT FASTINGP ERFORMED BY: CB [facility] Zjtoog6348 [address] RoadDublin [place] [id number] PT Coag (PPP) [Time] 9.9 s Normal 9.1-12.0 [facility] Internal Medicine; [facility] Work Phone: Comment on above: PATIENT NOT FASTINGP ERFORMED BY: CB [facility] Xmwoji5323 [address] RoadDublin [place] [id number] PTT (ACTIVATED PARTIAL THROM BOPLASTIN TIME) (14007)Ordered By: Drug Safety Associate on 01-09-2014 aPTT Coag (PPP) [Time] 31 {sec} Normal 24-33 [facility] Internal Medicine; [facility] Internal Medicine Work Phone: Comment on above: This test has not be en validated for monitoring unfractionated heparintherapy. aPTT-based therapeutic ranges for unfractionated heparintherapy have not been established. For general guidelines onHeparin monitoring, refer to the [employer] Directory of Services. PATIENT NOT FASTINGP ERFORMED BY: [facility] Stonnu6982 [facility] [id number] aPTT Coag (PPP) [Time] 31 s Normal 24-33 [facility] Internal Medicine; [facility] Work Phone: Comment on above: This test has not be en validated for monitoring unfractionated heparintherapy. aPTT-based therapeutic ranges for unfractionated heparintherapy have not been established. For general guidelines onHeparin monitoring, refer to the [employer] Directory of Services. PATIENT NOT FASTINGP ERFORMED BY: [facility] Chwygq9929 [facility] [id number] TSH (90796)Ordered By: Sourav m Electronics Computer Mechanic on 01-09-2014 TSH Qn 1.900 {uIU/mL} Normal 0.450-4.500 [facility] Internal Medicine; [facility] Work Phone: Comment on above: PATIENT NOT FASTINGP ERFORMED BY: Scale ComputingPutnam County Memorial Hospital Wrsrij5763 [facility] [id number] Vitamin D Hydroxy (15699)Ord ered By: Drug Safety Associate on 01-09-2014 25-Hydroxyvitamin D2+25-Hydroxyvitamin D3 [Mass/Vol] 49.5 ng/mL Normal 30.0-100.0 [facility]; [facility] Work Phone: Comment on above: Vitamin D deficiency has been defined by the [place] and an Endocrine Society practice guideline as alevel of serum 25-OH vitamin D less than 20 ng/mL (1,2).The Endocrine Society went on to further define vitamin Dinsufficiency as a level between 21 and 29 ng/mL (2).1. IOM ([place]). 2010. Dietary reference intakes for calcium and D. [place]: The National Academies Press.2. Jyoti PASCAL, Ramana RIGGS, Jamilah MANZO, et al. Evaluation, treatment, and prevention of vitamin D deficiency: an Endocrine Society clinical practice guideline. JCEM. 2010; 96(7):1911-30. PATIENT NOT FASTINGP ERFORMED BY: [facility] Hvvgtk9392 [facility] [id number] Urinalysis, Office (31398)Or dered By: Soheila Moore on 12-03-2013 Bilirubin Ql (U) Negative Normal Comprehe nsive Internal Medicine; [facility] Work Phone: Bilirubin Ql (U) Negative Normal Comprehe nsive Internal Medicine; [facility] Work Phone: Glucose Test strip (U) [Mass/Vol] Negative Normal [facility]; [facility] Work Phone: Glucose Test strip (U) [Mass/Vol] Negative Normal [facility]; [facility] Work Phone: Hemoglobin Ql (U) Hemolyzed Small Normal Co mprehensive Internal Medicine; [facility] Work Phone: Ketones Ql (U) Negative Normal Comprehens ary Internal Medicine; [facility] Work Phone: Ketones Ql (U) Negative Normal Comprehens ary Internal Medicine; [facility] Work Phone: Leukocyte esterase Test strip Ql (U) Negative Normal [facility]; [facility] Work Phone: Leukocyte esterase Test strip Ql (U) Negative Normal [facility]; [facility] Work Phone: Nitrite Ql (U) Negative Normal Comprehens ary Internal Medicine; [facility] Work Phone: Nitrite Ql (U) Negative Normal Comprehens ary Internal Medicine; [facility] Work Phone: pH (U) 7.0 [pH] Normal [facility]; [facility] Work Phone: Protein Ql (U) Negative Normal Comprehens ary Internal Medicine; [facility] Work Phone: Protein Ql (U) Negative Normal Comprehens ary Internal Medicine; [facility] Work Phone: Specific gravity (U) [Rel density] 1.015 1 Normal [facility]; [facility] Work Phone: Urobilinogen (24H U) [Mass/Time] Normal Normal [facility]; [facility] Work Phone: WILFRED (ANTINUCLEAR ANTIBODY) ( 22380)Ordered By: Drug Safety Associate on 01-17-2012 Nuclear Ab Ql (S) Negative Normal Compreh ensive Internal Medicine; [facility] Work Phone: Comment on above: PATIENT NOT FASTINGP ERFORMED BY: CardioLogs [facility] Uivglv3226 [address] Lovestruck.comWashington [facility] Center [id number] BY: FlowCo[address] [id number] Nuclear Ab Ql (S) Negative Normal Compreh ensive Internal Medicine; [facility] Work Phone: Comment on above: PATIENT NOT FASTINGP ERFORMED BY: CB [facility] Eptolf5243 [address] [facility] [id number] BY: FlowCo[address] [id number] C-REACTIVE PROTEIN (22599)Or dered By: Drug Safety Associate on 01-17-2012 CRP [Mass/Vol] 14.3 mg/L Abnormal 0.0-4.9 Comprehens [facility] Internal Medicine; [facility] Work Phone: Comment on above: PATIENT NOT FASTINGP ERFORMED BY: CB [facility] Imogex5795 [facility] [id number] BY: FlowCo[address] [id number] CALCIFEDIOL (81845)Ordered B y: Drug Safety Associate on 01-17-2012 25-Hydroxyvitamin D2+25-Hydroxyvitamin D3 [Mass/Vol] 25.0 ng/mL Abnormal 30.0-100.0 [facility]; [facility] Work Phone: Comment on above: Vitamin D deficiency has been defined by the [place] and an Endocrine Society practice guideline as alevel of serum 25-OH vitamin D less than 20 ng/mL (1,2).The Endocrine Society went on to further define vitamin Dinsufficiency as a level between 21 and 29 ng/mL (2).1. IOM ([place]). 2010. Dietary reference intakes for calcium and D. [place]: The National Academies Press.2. Jyoit MF, Ramana [place], Jamilah MANZO, et al. Evaluation, treatment, and prevention of vitamin D deficiency: an Endocrine Society clinical practice guideline. JCEM. 2010; 96(7):1911-30. PATIENT NOT FASTINGP ERFORMED BY: [facility] Fpsqve3257 [facility] [id number] BY: [employer] Computing[address] [id number] CBC WITH MANUAL DIFF (11688) Ordered By: Drug Safety Associate on 01-17-2012 Basophils (Bld) [#/Vol] 0.1 {x10E3/uL} Normal 0.0-0.2 [facility]; [facility] Work Phone: Comment on above: PATIENT NOT FASTINGP ERFORMED BY: [facility] Zfwfso0834 [facility] [id number] BY: [employer] [id number] Information: 183588,B58394 Basophils (Bld) [#/Vol] 0.1 10*3/uL Normal 0.0-0.2 [facility]; [facility] Work Phone: Comment on above: PATIENT NOT FASTINGP ERFORMED BY: [facility] Vnlqxp2567 [facility] [id number] BY: [employer] Computing[address] [id number] Information: 541289,J04260 Basophils/100 WBC (Bld) 1 % Normal 0-3 [facility]; [facility] Work Phone: Comment on above: PATIENT NOT FASTINGP ERFORMED BY: LabNew Media Education [employer] Thgstn6289 [facility] [id number] BY: [address] [id number] Information: 193122,X56724 Eosinophils (Bld) [#/Vol] 0.3 {x10E3/uL} Normal 0.0-0.4 [facility]; [facility] Work Phone: Comment on above: PATIENT NOT FASTINGP ERFORMED BY: DEREK [facility] Fcaafe3363 Root RoadDuin [place] [id number] BY: LabCo[address] [id number] Information: 940097,R78291 Eosinophils (Bld) [#/Vol] 0.3 10*3/uL Normal 0.0-0.4 [facility]; [facility] Work Phone: Comment on above: PATIENT NOT FASTINGP ERFORMED BY: DEREK [facility] Cpdzsi0269 Root RoadDuWilson Medical Center [id number] BY: LabCo[address] [id number] Information: 352880,U52785 Eosinophils/100 WBC (Bld) 4 % Normal 0-7 [facility]; [facility] Work Phone: Comment on above: PATIENT NOT FASTINGP ERFORMED BY: CB [facility] Fozsor6488 [address] [facility] [id number] BY: LabCo[address] [id number] Information: 077247,Q52681 Erythrocyte distribution width (RBC) [Ratio] 12.9 % Normal 11.7-15.0 [facility]; [facility] Work Phone: Comment on above: PATIENT NOT FASTINGP ERFORMED BY: CB [facility] Zpymke2955 [address] [facility] [id number] BY: LabCo[address] [id number] Information: 324309,A84182 Hematocrit (Bld) [Volume fraction] 40.9 % Normal 34.0-44.0 [facility]; [facility] Work Phone: Comment on above: PATIENT NOT FASTINGP ERFORMED BY: CB [facility] Mkqiim6075 [address] [facility] Centerblin [place] [id number] BY: [address] [id number] Information: 871135,Y83922 Hemoglobin (Bld) [Mass/Vol] 14.0 g/dL Normal 11.5-15.0 [facility]; [facility] Work Phone: Comment on above: PATIENT NOT FASTINGP ERFORMED BY: LabPromedica [facility]6370 [facility] [id number] BY: [address] [id number] Information: 347637,R30907 Immature granulocytes (Bld) [#/Vol] 0.0 {x10E3/uL} Normal 0.0-0.1 [facility]; [facility] Work Phone: Comment on above: PATIENT NOT FASTINGP ERFORMED BY: [place] 8483970 [facility] [id number] BY: [address] [id number] Information: 427771,Y38331 Immature granulocytes (Bld) [#/Vol] 0.0 10*3/uL Normal 0.0-0.1 [facility]; [facility] Work Phone: Comment on above: PATIENT NOT FASTINGP ERFORMED BY: LabProm[facility]6370 [facility] [id number] BY: [address] [id number] Information: 620086,Y04875 Immature granulocytes/100 WBC (Bld) 0 % Normal 0-2 [facility]; [facility] Work Phone: Comment on above: PATIENT NOT FASTINGP ERFORMED BY: [facility] Hospital - CantonCoHackettstown Medical CenterEvdtmf1625 [facility] [id number] BY: [address] [id number] Information: 209680,[id number] Lymphocytes (Bld) [#/Vol] 1.5 {x10E3/uL} Normal 0.7-4.5 [facility]; [facility] Work Phone: Comment on above: PATIENT NOT FASTINGP ERFORMED BY: CB [facility] Eipwrr0208 [facility] [id number] BY: [address] [id number] Information: 618055,O90885 Lymphocytes (Bld) [#/Vol] 1.5 10*3/uL Normal 0.7-4.5 [facility]; [facility] Work Phone: Comment on above: PATIENT NOT FASTINGP ERFORMED BY: CB [facility] Gzazra1577 [facility] [id number] BY: [address] [id number] Information: 999307,G59366 Lymphocytes/100 WBC (Bld) 19 % Normal 14-46 [facility]; [facility] Work Phone: Comment on above: PATIENT NOT FASTINGP ERFORMED BY: CB [facility] Rtbfcq5052 [facility] [id number] BY: [address] [id number] Information: 181037,G14178 MCH (RBC) [Entitic mass] 31.3 pg Normal 27.0-34.0 [facility]; [facility] Work Phone: Comment on above: PATIENT NOT FASTINGP ERFORMED BY: CB [facility] Ccbffa9747 [facility] [id number] BY: [address] [id number] Information: 100869,X81377 MCHC (RBC) [Mass/Vol] 34.2 g/dL Normal 32.0-36.0 [facility] prehensive Internal Medicine; [facility] Work Phone: Comment on above: PATIENT NOT FASTINGP ERFORMED BY: CB [facility] Rwvavv4234 [address] [facility] [id number] BY: Lab[address] [id number] Information: 831277,D88452 MCV (RBC) [Entitic vol] 91 fL Normal 80-98 [facility]; [facility] Work Phone: Comment on above: PATIENT NOT FASTINGP ERFORMED BY: CB [facility] Xbwoyd6440 [address] [facility] [id number] BY: [address] [id number] Information: 315560,D04816 Monocytes (Bld) [#/Vol] 0.6 {x10E3/uL} Normal 0.1-1.0 [facility]; [facility] Work Phone: Comment on above: PATIENT NOT FASTINGP ERFORMED BY: CB [facility] Rkbsvd1556 RootSS[facility] [id number] BY: [address] [id number] Information: 432500,O48750 Monocytes (Bld) [#/Vol] 0.6 10*3/uL Normal 0.1-1.0 [facility]; [facility] Work Phone: Comment on above: PATIENT NOT FASTINGP ERFORMED BY: CB [facility] Plmlau7138 [facility] [id number] BY: [address] [id number] Information: 102853,Q36149 Monocytes/100 WBC (Bld) 7 % Normal 4-13 [facility]; [facility] Work Phone: Comment on above: PATIENT NOT FASTINGP ERFORMED BY: CB [facility] Ushlid3197 [address] [facility] [id number] BY: LabCo[address] [id number] Information: 372514,J97441 Neutrophils (Bld) [#/Vol] 5.6 {x10E3/uL} Normal 1.8-7.8 [facility]; [facility] Work Phone: Comment on above: PATIENT NOT FASTINGP ERFORMED BY: CB [facility] Gjoigk0822 [facility] [id number] BY: [facility] [address] [id number] Information: 461273,E66206 Neutrophils (Bld) [#/Vol] 5.6 10*3/uL Normal 1.8-7.8 [facility]; [facility] Work Phone: Comment on above: PATIENT NOT FASTINGP ERFORMED BY: [facility] Iqndgl2063 [facility] [id number] BY: [address] [id number] Information: 418402,K89061 Neutrophils/100 WBC (Bld) 69 % Normal 40-74 [facility]; [facility] Work Phone: Comment on above: PATIENT NOT FASTINGP ERFORMED BY: CB [facility] Qwkjbj5374 [facility] [id number] BY: LabCo[address] [id number] Information: 202910,S91287 Platelets (Bld) [#/Vol] 310 {x10E3/uL} Normal 140-415 [facility]; [facility] Work Phone: Comment on above: PATIENT NOT FASTINGP ERFORMED BY: CB [facility] Ioeomg5105 [facility] [id number] BY: [address] [id number] Information: 290713,Z06064 Platelets (Bld) [#/Vol] 310 10*3/uL Normal 140-415 [facility]; [facility] Work Phone: Comment on above: PATIENT NOT FASTINGP ERFORMED BY: DEREK [facility] Zwefym7206 [facility] [id number] BY: FlowCo[address] [id number] Information: 782218,Y83933 RBC (Bld) [#/Vol] 4.48 {x10E6/uL} Normal 3.80-5.10 [facility] Internal Medicine; [facility] Work Phone: Comment on above: PATIENT NOT FASTINGP ERFORMED BY: DEREK FlowCoclau AvilaJzexwe5839 [facility] [id number] BY: [employer] [id number] Information: 839461,X85632 RBC (Bld) [#/Vol] 4.48 10*6/uL Normal 3.80-5.10 [facility] Internal Medicine; [facility] Work Phone: Comment on above: PATIENT NOT FASTINGP ERFORMED BY: DEREK FlowCoclau AvilaSvyajs0339 [facility] [id number] BY: Motopia[address] [id number] Information: 874028,K17307 WBC (Bld) [#/Vol] 8.1 {x10E3/uL} Normal 4.0-10.5 [facility] Internal Medicine; [facility] Work Phone: Comment on above: PATIENT NOT FASTINGP ERFORMED BY: DEREK Vitryn Iwawwr1565 [facility] [id number] BY: FlowCo[address] [id number] Information: 543635,O05739 WBC (Bld) [#/Vol] 8.1 10*3/uL Normal 4.0-10.5 [facility] Internal Medicine; [facility] Work Phone: Comment on above: PATIENT NOT FASTINGP ERFORMED BY: CB [facility] Vefmoe1517 Root RoadDublUofL Health - Frazier Rehabilitation Institute [id number] BY: LabCo[address] [id number] Information: 351971,[id number] METABOLIC PANEL, COMPREHENSI VE (61683)Ordered By: Drug Safety Associate on 01-17-2012 Albumin [Mass/Vol] 4.1 g/dL Normal 3.5-5.5 [facility] Internal Medicine; [facility] Work Phone: Comment on above: PATIENT NOT FASTINGP ERFORMED BY: CB [facility] Wfblbx9792 [address] [facility] [id number] BY: LabCo[address] [id number] Albumin/Globulin [Mass ratio] 1.6 {ratio} Normal 1.1-2.5 [facility]; [facility] Work Phone: Comment on above: PATIENT NOT FASTINGP ERFORMED BY: CB [facility] Amwqnl5368 Root RoadDuWilson Medical Center [id number] BY: Lab[address] [id number] ALP [Catalytic activity/Vol] 60 [iU]/L Normal 25-150 [facility]; [facility] Work Phone: Comment on above: PATIENT NOT FASTINGP ERFORMED BY: CB [facility] Uqikxz3341 Root RoadWashington Regional Medical Center [id number] BY: Lab[address] [id number] ALP [Catalytic activity/Vol] 60 U/L Normal 25-150 [facility]; [facility] Work Phone: Comment on above: PATIENT NOT FASTINGP ERFORMED BY: CB [facility] Pumdcx5030 [address] RoadDublin [place] [id number] BY: Lab[address] [id number] ALT [Catalytic activity/Vol] 22 [iU]/L Normal 0-40 [facility]; [facility] Work Phone: Comment on above: PATIENT NOT FASTINGP ERFORMED BY: CB [facility] Xmnfyr3941 [address] RoadDublin [place] [id number] BY: LabCo[address] [id number] ALT [Catalytic activity/Vol] 22 U/L Normal 0-40 [facility]; [facility] Work Phone: Comment on above: PATIENT NOT FASTINGP ERFORMED BY: CB [facility] Cmzoli0054 Root RoadDuin [place] [id number] BY: [facility] [address] [id number] AST [Catalytic activity/Vol] 22 [iU]/L Normal 0-40 [facility]; [facility] Work Phone: Comment on above: PATIENT NOT FASTINGP ERFORMED BY: CB [facility] Oyqems8492 Root RoadWashington Regional Medical Center [id number] BY: LabCo[address] [id number] AST [Catalytic activity/Vol] 22 U/L Normal 0-40 [facility]; [facility] Work Phone: Comment on above: PATIENT NOT FASTINGP ERFORMED BY: CB [facility] Gxukxt1774 [address] [facility] [id number] BY: Lab[address] [id number] Bilirubin [Mass/Vol] 0.2 mg/dL Normal 0.0-1.2 Comp [facility]; [facility] Work Phone: Comment on above: PATIENT NOT FASTINGP ERFORMED BY: CB [facility] Mtcvsz9900 [address] [facility] [id number] BY: Lab[address] [id number] Calcium [Mass/Vol] 9.3 mg/dL Normal 8.7-10.2 [facility]; [facility] Work Phone: Comment on above: PATIENT NOT FASTINGP ERFORMED BY: CB [facility] Mkwuko1219 [address] [facility] [id number] BY: [facility] [address] [id number] Chloride [Moles/Vol] 98 mmol/L Normal 97-108 [facility] rehensive Internal Medicine; [facility] Work Phone: Comment on above: PATIENT NOT FASTINGP ERFORMED BY: CB [facility] Mqpyjh0816 [address] [facility] [id number] BY: [facility] [address] [id number] CO2 [Moles/Vol] 24 mmol/L Normal 20-32 [facility]; [facility] Work Phone: Comment on above: PATIENT NOT FASTINGP ERFORMED BY: CB [facility] Ccutek6923 [facility] [id number] BY: [facility] [address] [id number] Creatinine [Mass/Vol] 0.62 mg/dL Normal 0.57-1.00 [facility]; [facility] Work Phone: Comment on above: PATIENT NOT FASTINGP ERFORMED BY: CB [facility] Lpwrig1879 [facility] [id number] BY: [facility] [address] [id number] GFR/1.73 sq M predicted among blacks MDRD (S/P/Bld) [Vol rate/Area] 124 mL/min/{1.73_m2} Normal Comprehensi ve Internal Medicine; [facility] Work Phone: Comment on above: Note: A persistent e GFR <60 mL/min/1.73 m2 (3 months or more) mayindicate chronic kidney disease. An eGFR >59 mL/min/1.73 m2 with anelevated urine protein also may indicate chronic kidney disease.Calculated using CKD-EPI formula. PATIENT NOT FASTINGP ERFORMED BY: CB [facility] Lhkggh6483 [facility] [id number] BY: [address] [id number] GFR/1.73 sq M predicted among non-blacks CKD-EPI (S/P/Bld) [Vol rate/Area] 108 mL/min/1.73 Normal [facility]; [facility] Work Phone: Comment on above: PATIENT NOT FASTINGP ERFORMED BY: [facility] Zvxtkb8211 [facility] [id number] BY: [address] [id number] Globulin (S) [Mass/Vol] 2.6 g/dL Normal 1.5-4.5 [facility]; [facility] Work Phone: Comment on above: PATIENT NOT FASTINGP ERFORMED BY: LabNew Media Education LtdHackettstown Medical CenterNadqyj3608 [facility] [id number] BY: [employer] [id number] Glucose [Mass/Vol] 90 mg/dL Normal 65-99 [facility]; [facility] Work Phone: Comment on above: PATIENT NOT FASTINGP ERFORMED BY: [facility] Hqiqrs7600 [facility] [id number] BY: Lab[address] [id number] Potassium [Moles/Vol] 4.4 mmol/L Normal 3.5-5.2 [facility]; [facility] Work Phone: Comment on above: PATIENT NOT FASTINGP ERFORMED BY: [facility] Gsxsfs9113 [facility] [id number] BY: [address] [id number] Protein [Mass/Vol] 6.7 g/dL Normal 6.0-8.5 [facility]; [facility] Work Phone: Comment on above: PATIENT NOT FASTINGP ERFORMED BY: CB [facility] Ghfoqt3817 [facility] [id number] BY: [facility] [address] [id number] Sodium [Moles/Vol] 136 mmol/L Normal 134-144 [facility]; [facility] Work Phone: Comment on above: PATIENT NOT FASTINGP ERFORMED BY: CB [facility] Uuzxzo1323 [address] [facility] [id number] BY: [facility] [address] [id number] Urea nitrogen [Mass/Vol] 17 mg/dL Normal 6-24 [facility]; [facility] Work Phone: Comment on above: PATIENT NOT FASTINGP ERFORMED BY: CB [facility] Bbtfpa0217 [address] [facility] [id number] BY: [facility]Co[address] [id number] Urea nitrogen/Creatinine [Mass ratio] 27 mg/mg Abnormal 9-23 [facility]; [facility] Work Phone: Comment on above: PATIENT NOT FASTINGP ERFORMED BY: CB [facility] Aiugbm1653 [facility] [id number] BY: [facility]Co[address] [id number] RHEUMATOID FACTOR-QUANT (864 31)Ordered By: Drug Safety Associate on 01-17-2012 Rheumatoid factor Qn 9.9 {IU/mL} Normal 0.0-13.9 [facility] prehensive Internal Medicine; [facility] Work Phone: Comment on above: PATIENT NOT FASTINGP ERFORMED BY: CB [facility] Jahrtv1809 [address] [facility] [id number] BY: LabCo[address] [id number] Rheumatoid factor Qn 9.9 [IU]/mL Normal 0.0-13.9 [facility] prehensive Internal Medicine; [facility] Work Phone: Comment on above: PATIENT NOT FASTINGP ERFORMED BY: [facility] Bjothn6985 [address] [facility] [id number] BY: Scale ComputingKristen V[place] 763047 [facility] [id number] SED RATE ERYTHROCYTE (05224) Ordered By: Drug Safety Associate on 01-17-2012 ESR (Bld) [Velocity] 23 mm/h Normal 0-32 Comp rehensive Internal Medicine; [facility] Work Phone: Comment on above: PATIENT NOT FASTINGP ERFORMED BY: [facility] Njtwjp8996 [address] [facility] [id number] BY: [employer] [id number] TSH (47394)Ordered By: TrepUpe m Electronics Computer Mechanic on 01-17-2012 TSH Qn 2.550 {uIU/mL} Normal 0.450-4.500 [facility] Internal Medicine; [facility] Work Phone: Comment on above: PATIENT NOT FASTINGP ERFORMED BY: [facility] Cfaxnl3453 [address] [facility] [id number] BY: [employer] [id number] GARDNERELLA VAG, NUCLEIC ACI D DIR PROBE (22381)Ordered By: Drug Safety Associate on 11-08-2011 GARDNERELLA VAG, NUCLEIC ACID DIR PROBE (88843) Negative Normal [facility]; [facility] Work Phone: Comment on above: PATIENT NOT FASTINGP ERFORMED BY: [facility] Aortcd7145 [address] [facility] [id number] Information: [id number] GARDNERELLA VAG, NUCLEIC ACID DIR PROBE (32704) Negative Normal [facility]; [facility] Work Phone: Comment on above: PATIENT NOT FASTINGP ERFORMED BY: [facility] Uklwhd5623 [address] [facility] [id number] Information: [id number] URINE CEDRIC CULTURE (ESTIVEN COL COUNT) (28558)Ordered By: Drug Safety Associate on 11-08-2011 Bacteria identified Cx Nom (U) NG36 Normal [facility]; [facility] Work Phone: Comment on above: No growth in 36 - 48 hours. PATIENT NOT FASTINGP ERFORMED BY: CB [facility] Wbxfjt1796 Root RoadDublin [place] [id number] Information: SRC:UR [id number] Bacteria identified Cx Nom (U) Final report Normal [facility]; [facility] Work Phone: Comment on above: PATIENT NOT FASTINGP ERFORMED BY: CB [facility] Ktolsw0824 Root RoadUnc Healthin [place] [id number] Information: SRC:UR [id number] CBC (Auto) (35898)Ordered By : Drug Safety Associate on 10-30-2011 Erythrocyte distribution width (RBC) [Ratio] 13.1 % Normal 11.7-15.0 [facility]; [facility] Work Phone: Comment on above: PATIENT WAS FASTINGP ERFORMED BY: CB [facility] Xfikpv8524 [address] [facility] [id number] Hematocrit (Bld) [Volume fraction] 41.8 % Normal 34.0-44.0 [facility]; [facility] Work Phone: Comment on above: PATIENT WAS FASTINGP ERFORMED BY: CB [facility] Rqqgpw0955 [address] [facility] [id number] Hemoglobin (Bld) [Mass/Vol] 13.4 g/dL Normal 11.5-15.0 [facility]; [facility] Work Phone: Comment on above: PATIENT WAS FASTINGP ERFORMED BY: CB [facility] Bwjuod0421 [address] RoadDublin [place] [id number] MCH (RBC) [Entitic mass] 30.3 pg Normal 27.0-34.0 [facility]; [facility] Work Phone: Comment on above: PATIENT WAS FASTINGP ERFORMED BY: CB [facility] Wqnveu4463 Root RoadDublin [place] [id number] MCHC (RBC) [Mass/Vol] 32.1 g/dL Normal 32.0-36.0 [facility] prehensive Internal Medicine; [facility] Work Phone: Comment on above: PATIENT WAS FASTINGP ERFORMED BY: DEREK [facility] Qdjycd0230 Root RoadDublin [place] [id number] MCV (RBC) [Entitic vol] 95 fL Normal 80-98 [facility]; [facility] Work Phone: Comment on above: PATIENT WAS FASTINGP ERFORMED BY: CB [facility] Kbzzit0248 [address] RoadDublin [place] [id number] Platelets (Bld) [#/Vol] 285 {x10E3/uL} Normal 140-415 [facility]; [facility] Work Phone: Comment on above: PATIENT WAS FASTINGP ERFORMED BY: DEREK [facility] Qivqca2758 [address] RoadDublin [place] [id number] Platelets (Bld) [#/Vol] 285 10*3/uL Normal 140-415 [facility]; [facility] Work Phone: Comment on above: PATIENT WAS FASTINGP ERFORMED BY: CB [facility] Ielenm7948 [address] RoadDublin [place] [id number] RBC (Bld) [#/Vol] 4.42 {x10E6/uL} Normal 3.80-5.10 [facility]; [facility] Work Phone: Comment on above: PATIENT WAS FASTINGP ERFORMED BY: CB [facility] Qfpcqm4569 [address] RoadDublin [place] [id number] RBC (Bld) [#/Vol] 4.42 10*6/uL Normal 3.80-5.10 [facility]; [facility] Work Phone: Comment on above: PATIENT WAS FASTINGP ERFORMED BY: CB [facility] Eczqtu3677 [address] RoadDublin [place] [id number] WBC (Bld) [#/Vol] 6.2 {x10E3/uL} Normal 4.0-10.5 [facility] prehensive Internal Medicine; [facility] Work Phone: Comment on above: PATIENT WAS FASTINGP ERFORMED BY: DEREK LabCoclau Bzzrqn9182 [address] [facility] [place] [id number] WBC (Bld) [#/Vol] 6.2 10*3/uL Normal 4.0-10.5 [facility]; [facility] Work Phone: Comment on above: PATIENT WAS FASTINGP ERFORMED BY: DEREK LabHarini Bfnnfs9441 [address] [facility] [id number] Lipid Panel (36181)Ordered B y: Drug Safety Associate on 10-30-2011 Cholesterol [Mass/Vol] 208 mg/dL Abnormal 100-199 [facility]; [facility] Work Phone: Comment on above: PATIENT WAS FASTINGP ERFORMED BY: DEREK [place] Tdrkaq6128 [facility]in [place] [id number] Cholesterol in HDL [Mass/Vol] 50 mg/dL Normal [facility]; [facility] Work Phone: Comment on above: According to ATP-III Guidelines, HDL-C >59 mg/dL is considered anegative risk factor for CHD. PATIENT WAS FASTINGP ERFORMED BY: DEREK LabHarini Updvbd4381 [address] [facility] Centerin [place] [id number] Cholesterol in LDL [Mass/Vol] 142 mg/dL Abnormal 0-99 [facility]; [facility] Work Phone: Comment on above: PATIENT WAS FASTINGP ERFORMED BY: DEREK LabCoclau Bjecmb5598 [address] [facility] [id number] Cholesterol in LDL/Cholesterol in HDL [Mass ratio] 2.8 {ratio_units} Normal 0.0-3.2 [facility]; [facility] Work Phone: Comment on above: PATIENT WAS FASTINGP ERFORMED BY: DEREK [facility] Skmceg9270 [address] [facility] Centerblin [place] [id number] Cholesterol in VLDL [Mass/Vol] 16 mg/dL Normal 5-40 [facility]; [facility] Work Phone: Comment on above: PATIENT WAS FASTINGP ERFORMED BY: DEREK Qureshi Ovyiwa1419 [facility] [id number] Triglyceride [Mass/Vol] 78 mg/dL Normal 0-149 [facility]; [facility] Work Phone: Comment on above: PATIENT WAS FASTINGP ERFORMED BY: DEREK Avilalin6370 [facility] [id number] Metabolic Panel, Comprehensi ve (09838)Ordered By: Drug Safety Associate on 10-30-2011 Albumin [Mass/Vol] 4.0 g/dL Normal 3.5-5.5 [facility]; [facility] Work Phone: Comment on above: PATIENT WAS FASTINGP ERFORMED BY: DEREK Qureshi Keiaee2788 [facility] [id number] Information: [id number]; appt 11/08/11 Albumin/Globulin [Mass ratio] 1.4 {ratio} Normal 1.1-2.5 [facility]; [facility] Work Phone: Comment on above: PATIENT WAS FASTINGP ERFORMED BY: DEREK Qureshi Xctvxo8653 [facility] [id number] Information: [id number]; appt 11/08/11 ALP [Catalytic activity/Vol] 60 [iU]/L Normal 25-150 [facility]; [facility] Work Phone: Comment on above: PATIENT WAS FASTINGP ERFORMED BY: [facility] Kdyuvl0512 [facility] [id number] Information: [id number]; appt 11/08/11 ALP [Catalytic activity/Vol] 60 U/L Normal 25-150 [facility]; [facility] Work Phone: Comment on above: PATIENT WAS FASTINGP ERFORMED BY: DEREK Qureshi Bwsjaa6510 [facility] [id number] Information: [id number]; appt 11/08/11 ALT [Catalytic activity/Vol] 15 [iU]/L Normal 0-40 [facility]; [facility] Work Phone: Comment on above: PATIENT WAS FASTINGP ERFORMED BY: DEREK LabCoclau SosaRgqjbz3896 Root RoadEvanblin [place] [id number] Information: [id number]; appt 11/08/11 ALT [Catalytic activity/Vol] 15 U/L Normal 0-40 [facility]; [facility] Work Phone: Comment on above: PATIENT WAS FASTINGP ERFORMED BY: CB [facility] Jczrra7206 Root RoadEvanblin [place] [id number] Information: [id number]; appt 11/08/11 AST [Catalytic activity/Vol] 19 [iU]/L Normal 0-40 [facility]; [facility] Work Phone: Comment on above: PATIENT WAS FASTINGP ERFORMED BY: DEREK [facility] Zwqgmw9948 [address] [facility] [place] [id number] Information: [id number]; appt 11/08/11 AST [Catalytic activity/Vol] 19 U/L Normal 0-40 [facility]; [facility] Work Phone: Comment on above: PATIENT WAS FASTINGP ERFORMED BY: DEREK ShahidCoclau AvilaQlfagf6043 [address] [facility] [place] [id number] Information: [id number]; appt 11/08/11 Bilirubin [Mass/Vol] 0.3 mg/dL Normal 0.0-1.2 Comp rehensive Internal Medicine; [facility] Work Phone: Comment on above: PATIENT WAS FASTINGP ERFORMED BY: DEREK [facility] Vmvife4526 [address] [facility]in [place] [id number] Information: [id number]; appt 11/08/11 Calcium [Mass/Vol] 8.8 mg/dL Normal 8.7-10.2 Compre [facility]; [facility] Work Phone: Comment on above: PATIENT WAS FASTINGP ERFORMED BY: DEREK [facility] Gzrknu1204 Root RoadUnc Healthin [place] [id number] Information: [id number]; appt 11/08/11 Chloride [Moles/Vol] 102 mmol/L Normal 97-108 [facility] rehensive Internal Medicine; [facility] Work Phone: Comment on above: PATIENT WAS FASTINGP ERFORMED BY: [facility] Zhammj3699 [facility] [id number] Information: [id number]; appt 11/08/11 CO2 [Moles/Vol] 26 mmol/L Normal 20-32 Comprehen sive Internal Medicine; [facility] Work Phone: Comment on above: PATIENT WAS FASTINGP ERFORMED BY: [facility] Cvjgnd9636 [facility] [id number] Information: [id number]; appt 11/08/11 Creatinine [Mass/Vol] 0.67 mg/dL Normal 0.57-1.00 [facility] prehensive Internal Medicine; [facility] Work Phone: Comment on above: PATIENT WAS FASTINGP ERFORMED BY: [facility] Lhlaag2362 [facility] [id number] Information: [id number]; appt 11/08/11 GFR/1.73 sq M predicted among blacks MDRD (S/P/Bld) [Vol rate/Area] 121 mL/min/{1.73_m2} Normal Comprehensi ve Internal Medicine; [facility] Work Phone: Comment on above: Note: A persistent e GFR <60 mL/min/1.73 m2 (3 months or more) mayindicate chronic kidney disease. An eGFR >59 mL/min/1.73 m2 with anelevated urine protein also may indicate chronic kidney disease.Calculated using CKD-EPI formula. PATIENT WAS FASTINGP ERFORMED BY: [facility] Apxduj4347 [facility] [id number] Information: [id number]; appt 11/08/11 GFR/1.73 sq M predicted among non-blacks CKD-EPI (S/P/Bld) [Vol rate/Area] 105 mL/min/1.73 Normal [facility]; [facility] Work Phone: Comment on above: PATIENT WAS FASTINGP ERFORMED BY: DEREK Qureshi Qjqlfx9903 [facility] [id number] Information: [id number]; appt 11/08/11 Globulin (S) [Mass/Vol] 2.8 g/dL Normal 1.5-4.5 [facility]; [facility] Work Phone: Comment on above: PATIENT WAS FASTINGP ERFORMED BY: DEREK [facility]6370 [facility] [id number] Information: [id number]; appt 11/08/11 Glucose [Mass/Vol] 87 mg/dL Normal 65-99 [facility] Internal [facility]; [facility] Work Phone: Comment on above: PATIENT WAS FASTINGP ERFORMED BY: DEREK [facility]Put[facility] Kqpwdy8017 [facility] [id number] Information: [id number]; appt 11/08/11 Potassium [Moles/Vol] 4.0 mmol/L Normal 3.5-5.2 [facility]; [facility] Work Phone: Comment on above: PATIENT WAS FASTINGP ERFORMED BY: [facility]6370 [facility] [id number] Information: [id number]; appt 11/08/11 Protein [Mass/Vol] 6.8 g/dL Normal 6.0-8.5 [facility]; [facility] Work Phone: Comment on above: PATIENT WAS FASTINGP ERFORMED BY: [facility]6370 [facility] [id number] Information: [id number]; appt 11/08/11 Sodium [Moles/Vol] 139 mmol/L Normal 135-145 [facility]; [facility] Work Phone: Comment on above: Effective November 13, 2011 Sodium, Serum reference interval will be changing to: 134 - 144 mmol/L PATIENT WAS FASTINGP ERFORMED BY: [facility] Zjzkxb3700 [facility] [id number] Information: [id number]; appt 11/08/11 Urea nitrogen [Mass/Vol] 11 mg/dL Normal 6-24 [facility]; [facility] Work Phone: Comment on above: PATIENT WAS FASTINGP ERFORMED BY: FlowCoHackettstown Medical CenterNukmfq2159 [facility] [id number] Information: [id number]; appt 11/08/11 Urea nitrogen/Creatinine [Mass ratio] 16 mg/mg Normal 9-23 [facility]; [facility] Work Phone: Comment on above: PATIENT WAS FASTINGP ERFORMED BY: FlowCoHackettstown Medical CenterZwhrni7321 [facility] [id number] Information: [id number]; appt 11/08/11 Urinalysis, Office ([id number])Or dered By: Marybel Almonte on 10-27-2011 Bilirubin Ql (U) Negative Normal Comprehe nsive Internal Medicine; [facility] Work Phone: Bilirubin Ql (U) Negative Normal Comprehe nsive Internal Medicine; [facility] Work Phone: Glucose Test strip (U) [Mass/Vol] Negative Normal [facility]; [facility] Work Phone: Glucose Test strip (U) [Mass/Vol] Negative Normal [facility]; [facility] Work Phone: Hemoglobin Ql (U) Hemolyzed Small Normal Co mprehensive [facility]; [facility] Work Phone: Ketones Ql (U) Negative Normal Comprehens ary [facility] Medicine; [facility] Work Phone: Ketones Ql (U) Negative Normal Comprehens ary [facility]; [facility] Work Phone: Leukocyte esterase Test strip Ql (U) Negative Normal [facility]; [facility] Work Phone: Leukocyte esterase Test strip Ql (U) Negative Normal [facility]; [facility] Internal Medicine Work Phone: Nitrite Ql (U) Negative Normal Comprehens ary Internal Medicine; [facility] Work Phone: Nitrite Ql (U) Negative Normal Comprehens ary Internal Medicine; [facility] Internal [facility] Work Phone: pH (U) 6.0 [pH] Normal [facility]; [facility] Internal [facility] Work Phone: Protein Ql (U) Negative Normal Comprehens ary Internal Medicine; [facility] Internal [facility] Work Phone: Protein Ql (U) Negative Normal Comprehens ary Internal Medicine; [facility] Internal [facility] Work Phone: Specific gravity (U) [Rel density] 1.005 1 Normal [facility]; [facility] Internal Medicine Work Phone: Urobilinogen (24H U) [Mass/Time] Normal Normal [facility] Internal Medicine; [facility] Work Phone: Vital Signs Date Time Vital Sign Value Performing Clinician Facility 09-21-2025 06:57-0400 Body mass index (BMI) [Ratio] 44.1 kg/m2 [facility] 09-21-2025 06:57-0400 Body weight 112.94 kg [facility] 09-21-2025 06:57-0400 Diastolic blood pressure 81 mm[Hg] [facility] 09-21-2025 06:57-0400 Heart rate 96 /min [facility] 09-21-2025 06:57-0400 Respiratory rate 18 /min [facility] 09-21-2025 06:57-0400 SaO2% (BldA) [Mass fraction] 100 % [facility] 09-21-2025 06:57-0400 Systolic blood pressure 145 mm[Hg] [facility] 09-07-2025 16:49-0400 Body temperature 97.8 [degF] [facility] 09-07-2025 16:49-0400 Diastolic blood pressure 81 mm[Hg] [facility] 09-07-2025 16:49-0400 Heart rate 89 /min [facility] 09-07-2025 16:49-0400 Respiratory rate 18 /min [facility] 09-07-2025 16:49-0400 SaO2% (BldA) [Mass fraction] 98 % [facility] 09-07-2025 16:49-0400 Systolic blood pressure 136 mm[Hg] [facility] 09-07-2025 12:51-0400 Body height 160.02 cm [facility] 09-07-2025 12:51-0400 Body mass index (BMI) [Ratio] 43.9 kg/m2 [facility] 09-07-2025 12:51-0400 Body weight 112.53 kg [facility] 05-14-2025 13:46-0400 Body height 160.02 cm [facility] 05-14-2025 13:46-0400 Body mass index (BMI) [Ratio] 44.9 kg/m2 [facility] 05-14-2025 13:46-0400 Body weight 115.21 [facility] 05-14-2025 13:46-0400 Diastolic blood pressure 94 mm[Hg] [facility] 05-14-2025 13:46-0400 Heart rate 94 /min [facility] 05-14-2025 13:46-0400 Respiratory rate 18 /min [facility] 05-14-2025 13:46-0400 SaO2% (BldA) [Mass fraction] 97 % [facility] 05-14-2025 13:46-0400 Systolic blood pressure 164 mm[Hg] [facility] 04-06-2025 20:04-0400 Diastolic blood pressure 62 mm[Hg] Mary Reza [facility] 04-06-2025 20:04-0400 Heart rate 68 /min [facility] 04-06-2025 20:04-0400 Respiratory rate 18 /min [facility] 04-06-2025 20:04-0400 SaO2% (BldA) [Mass fraction] 97 % [facility] 04-06-2025 20:04-0400 Systolic blood pressure 105 mm[Hg] [facility] 04-06-2025 18:07-0400 Body temperature 97.9 [degF] [facility] 04-06-2025 13:39-0400 Body mass index (BMI) [Ratio] 47 kg/m2 [facility] 04-06-2025 13:39-0400 Body weight 120.4 kg [facility] 04-06-2025 12:49-0400 Body height 160.02 cm [facility] 03-29-2023 11:30-0400 Body weight 114.31 kg Marques Paul MD Work Phone: [facility] 03-29-2023 11:30-0400 Diastolic blood pressure 84 mm[Hg] Marques Paul MD Work Phone: [facility] 03-29-2023 11:30-0400 Systolic blood pressure 146 mm[Hg] Marques Paul MD Work Phone: [facility] 11-01-2022 14:22-0500 Body height 160.02 cm Shannon Cordova LPN [facility]; [facility] Work Phone: 11-01-2022 14:22-0500 Body mass index (BMI) [Ratio] 42.87 kg/m2 Shannon Cordova LPN [facility]; [facility] Work Phone: 11-01-2022 14:22-0500 Body surface area Derived from formula 2.1 m2 Shannon Mathurrb [employer] [facility]; [facility] Work Phone: 11-01-2022 14:22-0500 Body temperature 97.2 [degF] Shannon Mathurrb [employer] [facility]; [facility] Work Phone: 11-01-2022 14:22-050 Body weight 109.77 kg Shannon Mathurrb [employer] [facility]; [facility] Work Phone: 11-01-2022 14:22-0500 Diastolic blood pressure 90 mm[Hg] Shannon Mathurrb [employer] [facility]; [facility] Work Phone: Comment on above: Patient Position: Sitting; Cuff Location : Left Arm; Cuff Size: Standard 11-01-2022 14:22-0500 Heart rate 81 /min Shannon Mathurrb [employer]PER[employer] [facility]; [facility] Work Phone: Comment on above: Pattern: Regular 11-01-2022 14:22-0500 Respiratory rate 16 /min Shannon Mathurrb [employer] SUPER[employer] [facility]; [facility] Work Phone: Comment on above: Pattern: Unlabored 11-01-2022 14:22-0500 SaO2% (BldA) [Mass fraction] 98 % Shannon Slarb [employer] SUPER[employer] [facility]; [facility] Work Phone: Comment on above: Room air 11-01-2022 14:22-0500 Systolic blood pressure 140 mm[Hg] Shannon Mathurrb [employer] SUPER[employer] [facility]; [facility] Work Phone: Comment on above: Patient Position: Sitting; Cuff Location : Left Arm; Cuff Size: Standard 06-08-2022 15:32-0400 Body weight 117.11 kg [facility] Work Phone: 03-15-2021 11:25-0400 Body height 160.02 cm Huber De Los Santos [employer]CTIONAL SUPER[employer]OR [facility]; [facility] Work Phone: 03-15-2021 11:25-0400 Body mass index (BMI) [Ratio] 42.87 kg/m2 Huber De Los Santos LPN [facility]; [facility] Work Phone: 03-15-2021 11:25-0400 Body surface area Derived from formula 2.1 m2 Huber De Los Santos LPN [facility]; [facility] Work Phone: 03-15-2021 11:25-0400 Body temperature 97.1 [degF] Huber De Los Santos LPN [facility]; [facility] Work Phone: Comment on above: Method: Infrared 03-15-2021 11:25-0400 Body weight 109.77 kg Huber De Los Santos LPN [facility]; [facility] Work Phone: 03-15-2021 11:25-0400 Diastolic blood pressure 78 mm[Hg] Huber De Los Santos LPN [facility]; [facility] Work Phone: Comment on above: Patient Position: Sitting; Cuff Location : Left Arm; Cuff Size: Standard 03-15-2021 11:25-0400 Heart rate 98 /min Huber De Los Santos LPN [facility]; [facility] Work Phone: Comment on above: Pattern: Regular 03-15-2021 11:25-0400 Respiratory rate 16 /min Huber De Los Santos LPN [facility]; [facility] Work Phone: Comment on above: Pattern: Unlabored 03-15-2021 11:25-0400 SaO2% (BldA) [Mass fraction] 96 % Huber De Los Santos LPN [facility]; [facility] Work Phone: Comment on above: Room air 03-15-2021 11:25-0400 Systolic blood pressure 126 mm[Hg] Huber De Los Santos LPN [facility]; [facility] Work Phone: Comment on above: Patient Position: Sitting; Cuff Location : Left Arm; Cuff Size: Standard 03-11-2021 09:25-0400 BMI (Body Mass Index) 42.87 kg/m2 Shannon Cordova LPN [facility]; [facility] Work Phone: Comment on above: pt did not report 03-11-2021 09:25-0400 Body weight 109.77 kg Shannon Mathurjosh [employer]AL SUPER[employer]OR [facility]; [facility] Work Phone: Comment on above: pt did not report 03-11-2021 09:25-0400 BSA (Body Surface Area) 2.1 m2 Shannon Slarb [employer]CTIONAL SUPERVISOR [facility]; [facility] Work Phone: Comment on above: pt did not report 03-11-2021 09:25-0400 Height 160.02 cm Shannon Tasha [employer]CTIONAL SUPERVISOR [facility]; [facility] Work Phone: Comment on above: pt did not report 03-01-2021 07:53-0400 BMI (Body Mass Index) 42.87 kg/m2 Huber De Los Santos LPN [facility]; [facility] Work Phone: 03-01-2021 07:53-0400 Body Temperature 97.3 [degF] Huber De Los Santos LPN [facility]; [facility] Work Phone: Comment on above: Method: Infrared 03-01-2021 07:53-0400 Body weight 109.77 kg Huber De Los Santos LPN [facility]; [facility] Work Phone: 03-01-2021 07:53-0400 BP Diastolic 78 mm[Hg] Huber De Los Santos LPN [facility]; [facility] Work Phone: Comment on above: Patient Position: Sitting; Cuff Location : Left Arm; Cuff Size: Standard 03-01-2021 07:53-0400 BP Systolic 136 mm[Hg] Huber De Los Santos LPN [facility]; [facility] Work Phone: Comment on above: Patient Position: Sitting; Cuff Location : Left Arm; Cuff Size: Standard 03-01-2021 07:53-0400 BSA (Body Surface Area) 2.1 m2 Huber De Los Santos LPN [facility]; [facility] Work Phone: 03-01-2021 07:53-0400 Height 160.02 cm Huber De Los Santos LPN [facility]; [facility] Work Phone: 03-01-2021 07:53-0400 Pulse (Heart Rate) 87 /min Huber De Los Santos LPN [facility]; [facility] Work Phone: Comment on above: Pattern: Regular 03-01-2021 07:53-0400 Pulse Oximetry 97 % Domi Handley [facility]; [facility] Work Phone: Comment on above: Room air 03-01-2021 07:53-0400 Respiratory Rate 16 /min Huber De Los Santos LPN [facility]; [facility] Work Phone: Comment on above: Pattern: Unlabored 03-01-2021 07:53-0400 SaO2% (BldA) [Mass fraction] 97 % Huber De Los Santos LPN [facility]; [facility] Work Phone: Comment on above: Room air 04-20-2020 13:01-0400 BMI (Body Mass Index) 43.84 kg/m2 Shannon Cordova LPN [facility]; [facility] Work Phone: 04-20-2020 13:01-0400 Body Temperature 97.9 [degF] Shannon Cordova LPN [facility]; [facility] Work Phone: 04-20-2020 13:01-0400 Body weight 112.27 kg Shannon Cordova LPN [facility]; [facility] Work Phone: 04-20-2020 13:01-0400 BP Diastolic 84 mm[Hg] Shannon Cordova LPN [facility]; [facility] Work Phone: Comment on above: Patient Position: Sitting; Cuff Location : Left Arm; Cuff Size: Standard 04-20-2020 13:01-0400 BP Systolic 152 mm[Hg] Shannon Tasha VELAZQUEZ [facility]; [facility] Work Phone: Comment on above: Patient Position: Sitting; Cuff Location : Left Arm; Cuff Size: Standard 04-20-2020 13:01-0400 BSA (Body Surface Area) 2.12 m2 Shannon Cordova LPN [facility]; [facility] Work Phone: 04-20-2020 13:01-0400 Height 160.02 cm Shannon Tasha VELAZQUEZ [facility]; [facility] Work Phone: 04-20-2020 13:01-0400 Pulse (Heart Rate) 89 /min Shannon Tasha VELAZQUEZ [facility]; [facility] Work Phone: Comment on above: Pattern: Regular 04-20-2020 13:01-0400 Pulse Oximetry 96 % Domi Handley [facility]; [facility] Work Phone: Comment on above: Room air 04-20-2020 13:01-0400 Respiratory Rate 16 /min Shannon Cordova LPN [facility]; [facility] Work Phone: Comment on above: Pattern: Unlabored 04-20-2020 13:01-0400 SaO2% (BldA) [Mass fraction] 96 % Shannon Cordova LPN [facility]; [facility] Work Phone: Comment on above: Room air 06-06-2018 09:01-0400 BMI (Body Mass Index) 43.84 kg/m2 Zahra Head RN [facility]; [facility] Work Phone: 06-06-2018 09:01-0400 Body weight 112.27 kg Zahra Head RN [facility]; [facility] Work Phone: 06-06-2018 09:01-0400 BP Diastolic 98 mm[Hg] Zahra Head RN [facility]; [facility] Work Phone: Comment on above: Patient Position: Sitting; Cuff Location : Left Arm; Cuff Size: Large 06-06-2018 09:01-0400 BP Systolic 142 mm[Hg] Zahra Head RN [facility]; [facility] Work Phone: Comment on above: Patient Position: Sitting; Cuff Location : Left Arm; Cuff Size: Large 06-06-2018 09:01-0400 BSA (Body Surface Area) 2.12 m2 Zahra Head RN [facility]; [facility] Work Phone: 06-06-2018 09:01-0400 Height 160.02 cm Zahra Head RN [facility]; [facility] Work Phone: 06-06-2018 09:01-0400 Pulse (Heart Rate) 77 /min Zahra Head RN [facility]; [facility] Work Phone: Comment on above: Pattern: Regular 06-06-2018 09:01-0400 Pulse Oximetry 96 % Domi Handley [facility]; [facility] Work Phone: Comment on above: Room air 06-06-2018 09:01-0400 Respiratory Rate 18 /min Zahra Head RN [facility]; [facility] Work Phone: Comment on above: Pattern: Unlabored 06-06-2018 09:01-0400 SaO2% (BldA) [Mass fraction] 96 % Zahra Head RN [facility]; [facility] Work Phone: Comment on above: Room air 05-21-2018 13:26-0400 BMI (Body Mass Index) 43.4 kg/m2 Shannon Cordova LPN [facility]; [facility] Work Phone: 05-21-2018 13:26-0400 Body Temperature 98.1 [degF] Shannon Tasha VELAZQUEZ [facility]; [facility] Work Phone: 05-21-2018 13:26-0400 Body weight 111.13 kg Shannon Tasha VELAZQUEZ [facility]; [facility] Work Phone: 05-21-2018 13:26-0400 BP Diastolic 84 mm[Hg] Shannon Kareenrb MARCUS [facility]; [facility] Work Phone: Comment on above: Patient Position: Sitting; Cuff Location : Left Arm; Cuff Size: Standard 05-21-2018 13:26-0400 BP Systolic 138 mm[Hg] Shannon Slarb MARCUS [facility]; [facility] Work Phone: Comment on above: Patient Position: Sitting; Cuff Location : Left Arm; Cuff Size: Standard 05-21-2018 13:26-0400 BSA (Body Surface Area) 2.11 m2 Shannon Kareenrb MARCUS [facility]; [facility] Work Phone: 05-21-2018 13:26-0400 Height 160.02 cm Shannon Tasha VELAZQUEZ [facility]; [facility] Work Phone: 05-21-2018 13:26-0400 Pulse (Heart Rate) 96 /min Shannon Cordova LPN [facility]; [facility] Work Phone: Comment on above: Pattern: Regular 05-21-2018 13:26-0400 Pulse Oximetry 95 % Domi Handley [facility]; [facility] Work Phone: Comment on above: Room air 05-21-2018 13:26-0400 Respiratory Rate 17 /min Shannon Cordova LPN [facility]; [facility] Work Phone: Comment on above: Pattern: Unlabored 05-21-2018 13:26-0400 SaO2% (BldA) [Mass fraction] 95 % Shannon Cordova LPN [facility]; [facility] Work Phone: Comment on above: Room air 04-13-2017 15:16-0400 BMI (Body Mass Index) 43.4 kg/m2 Zahra Head RN [facility]; [facility] Work Phone: 04-13-2017 15:16-0400 Body weight 111.13 kg Zahra Head RN [facility]; [facility] Work Phone: 04-13-2017 15:16-0400 BP Diastolic 82 mm[Hg] Zahra Head RN [facility]; [facility] Work Phone: Comment on above: Patient Position: Sitting; Cuff Location : Left Arm; Cuff Size: Large 04-13-2017 15:16-0400 BP Systolic 124 mm[Hg] Zahra Head RN [facility]; [facility] Work Phone: Comment on above: Patient Position: Sitting; Cuff Location : Left Arm; Cuff Size: Large 04-13-2017 15:16-0400 BSA (Body Surface Area) 2.11 m2 Zahra Head RN [facility]; [facility] Work Phone: 04-13-2017 15:16-0400 Height 160.02 cm Zahra Head RN [facility]; [facility] Work Phone: 04-13-2017 15:16-0400 Pulse (Heart Rate) 78 /min Zahra Head RN [facility]; [facility] Work Phone: Comment on above: Pattern: Regular 04-13-2017 15:16-0400 Pulse Oximetry 99 % Domi Handley [facility]; [facility] Work Phone: Comment on above: Room air 04-13-2017 15:16-0400 Respiratory Rate 18 /min Zahra Head RN [facility]; [facility] Work Phone: Comment on above: Pattern: Unlabored 04-13-2017 15:16-0400 SaO2% (BldA) [Mass fraction] 99 % Zahra Head RN [facility]; [facility] Work Phone: Comment on above: Room air 03-27-2017 13:24-0400 BMI (Body Mass Index) 42.2 kg/m2 Shannon Cordova LPN [facility]; [facility] Work Phone: 03-27-2017 13:24-0400 Body Temperature 97.2 [degF] Shannon Kareenrb MARCUS [facility]; [facility] Work Phone: 03-27-2017 13:24-0400 Body weight 108.07 kg Shannon Tasha VELAZQUEZ [facility]; [facility] Work Phone: 03-27-2017 13:24-0400 BP Diastolic 84 mm[Hg] Shannon Kareenrb MARCUS [facility]; [facility] Work Phone: Comment on above: Patient Position: Sitting; Cuff Location : Left Arm; Cuff Size: Standard 03-27-2017 13:24-0400 BP Systolic 138 mm[Hg] Shannon Slarb MARCUS [facility]; [facility] Work Phone: Comment on above: Patient Position: Sitting; Cuff Location : Left Arm; Cuff Size: Standard 03-27-2017 13:24-0400 BSA (Body Surface Area) 2.08 m2 Shannon Slarb MARCUS [facility]; [facility] Work Phone: 03-27-2017 13:24-0400 Height 160.02 cm Shannon Tasha VELAZQUEZ [facility]; [facility] Work Phone: 03-27-2017 13:24-0400 Pulse (Heart Rate) 100 /min Shannon Cordova LPN [facility]; [facility] Work Phone: Comment on above: Pattern: Regular 03-27-2017 13:24-0400 Pulse Oximetry 94 % Domi Handley [facility]; [facility] Work Phone: Comment on above: Room air 03-27-2017 13:24-0400 Respiratory Rate 16 /min Shannon Cordova LPN [facility]; [facility] Work Phone: Comment on above: Pattern: Unlabored 03-27-2017 13:24-0400 SaO2% (BldA) [Mass fraction] 94 % Shannon Cordova LPN [facility]; [facility] Work Phone: Comment on above: Room air 12-28-2016 12:34-0500 BMI (Body Mass Index) 38.53 kg/m2 Zahra Head RN [facility]; [facility] Work Phone: 12-28-2016 12:34-0500 Body weight 98.66 kg Zahra Head RN [facility]; [facility] Work Phone: 12-28-2016 12:34-0500 BP Diastolic 78 mm[Hg] Zahra Head RN [facility]; [facility] Work Phone: Comment on above: Patient Position: Sitting; Cuff Location : Left Arm; Cuff Size: Large 12-28-2016 12:34-0500 BP Systolic 142 mm[Hg] Zahra Head RN [facility]; [facility] Work Phone: Comment on above: Patient Position: Sitting; Cuff Location : Left Arm; Cuff Size: Large 12-28-2016 12:34-0500 BSA (Body Surface Area) 2 m2 Zahra Head RN [facility]; [facility] Work Phone: 12-28-2016 12:34-0500 Height 160.02 cm Zahra Head RN [facility]; [facility] Work Phone: 12-28-2016 12:34-0500 Pulse (Heart Rate) 76 /min Zahra Head RN [facility]; [facility] Work Phone: Comment on above: Pattern: Regular 12-28-2016 12:34-0500 Pulse Oximetry 98 % Domi Handley [facility]; [facility] Work Phone: Comment on above: Room air 12-28-2016 12:34-0500 Respiratory Rate 18 /min Zahra Head RN [facility]; [facility] Work Phone: Comment on above: Pattern: Unlabored 12-28-2016 12:34-0500 SaO2% (BldA) [Mass fraction] 98 % Zahra Head RN [facility]; [facility] Work Phone: Comment on above: Room air 10-26-2016 13:52-0500 BMI (Body Mass Index) 35.49 kg/m2 Zahra Head RN [facility]; [facility] Work Phone: 10-26-2016 13:52-0500 Body Temperature 97.8 [degF] Zahra Head RN [facility]; [facility] Work Phone: Comment on above: Method: Temporal 10-26-2016 13:52-0500 Body weight 90.89 kg Zahra Head RN [facility]; [facility] Work Phone: 10-26-2016 13:52-0500 BP Diastolic 52 mm[Hg] Zahra Head RN [facility]; [facility] Work Phone: Comment on above: Patient Position: Sitting; Cuff Location : Left Arm; Cuff Size: Large 10-26-2016 13:52-0500 BP Systolic 98 mm[Hg] Zahra Head RN [facility]; [facility] Work Phone: Comment on above: Patient Position: Sitting; Cuff Location : Left Arm; Cuff Size: Large 10-26-2016 13:52-0500 BSA (Body Surface Area) 1.94 m2 Zahra Head RN [facility]; [facility] Work Phone: 10-26-2016 13:52-0500 Height 160.02 cm Zahra Head RN [facility]; [facility] Work Phone: 10-26-2016 13:52-0500 Pulse (Heart Rate) 89 /min Zahra Haed RN [facility]; [facility] Work Phone: Comment on above: Pattern: Regular 10-26-2016 13:52-0500 Pulse Oximetry 98 % Domi Handley [facility]; [facility] Work Phone: Comment on above: Room air 10-26-2016 13:52-0500 Respiratory Rate 18 /min Zahra Head RN [facility]; [facility] Work Phone: Comment on above: Pattern: Unlabored 10-26-2016 13:52-0500 SaO2% (BldA) [Mass fraction] 98 % Zahra Head RN [facility]; [facility] Work Phone: Comment on above: Room air 10-05-2016 12:05-0500 BMI (Body Mass Index) 35.49 kg/m2 Zahra Head RN [facility]; [facility] Work Phone: 10-05-2016 12:05-0500 Body weight 90.89 kg Zahra Head RN [facility]; [facility] Work Phone: 10-05-2016 12:05-0500 BP Diastolic 82 mm[Hg] Zahra Head RN [facility]; [facility] Work Phone: Comment on above: Patient Position: Sitting; Cuff Location : Left Arm; Cuff Size: Large 10-05-2016 12:05-0500 BP Systolic 138 mm[Hg] Zahra Head RN [facility]; [facility] Work Phone: Comment on above: Patient Position: Sitting; Cuff Location : Left Arm; Cuff Size: Large 10-05-2016 12:05-0500 BSA (Body Surface Area) 1.94 m2 Zahra Head RN [facility]; [facility] Work Phone: 10-05-2016 12:05-0500 Height 160.02 cm Zahra Head RN [facility]; [facility] Work Phone: 10-05-2016 12:05-0500 Pulse (Heart Rate) 63 /min Zahra Head RN [facility]; [facility] Work Phone: Comment on above: Pattern: Regular 10-05-2016 12:05-0500 Pulse Oximetry 98 % Domi Handley [facility]; [facility] Work Phone: Comment on above: Room air 10-05-2016 12:05-0500 Respiratory Rate 18 /min Zahra Head RN [facility]; [facility] Work Phone: Comment on above: Pattern: Unlabored 10-05-2016 12:05-0500 SaO2% (BldA) [Mass fraction] 98 % Zahra Head RN [facility]; [facility] Work Phone: Comment on above: Room air 09-05-2016 11:42-0400 BMI (Body Mass Index) 35.49 kg/m2 Zahra Head RN [facility]; [facility] Work Phone: 09-05-2016 11:42-0400 Body weight 90.89 kg Zahra Head RN [facility]; [facility] Work Phone: 09-05-2016 11:42-0400 BP Diastolic 80 mm[Hg] Zahra Head RN [facility]; [facility] Work Phone: Comment on above: Patient Position: Sitting; Cuff Location : Left Arm; Cuff Size: Large 09-05-2016 11:42-0400 BP Systolic 120 mm[Hg] Zahra Head RN [facility]; [facility] Work Phone: Comment on above: Patient Position: Sitting; Cuff Location : Left Arm; Cuff Size: Large 09-05-2016 11:42-0400 BSA (Body Surface Area) 1.94 m2 Zahra Head RN [facility]; [facility] Work Phone: 09-05-2016 11:42-0400 Height 160.02 cm Zahra Head RN [facility]; [facility] Work Phone: 09-05-2016 11:42-0400 Pulse (Heart Rate) 86 /min Zahra Head RN [facility]; [facility] Work Phone: Comment on above: Pattern: Regular 09-05-2016 11:42-0400 Pulse Oximetry 96 % Domi Handley [facility]; [facility] Work Phone: Comment on above: Room air 09-05-2016 11:42-0400 Respiratory Rate 18 /min Zahra Head RN [facility]; [facility] Work Phone: Comment on above: Pattern: Unlabored 09-05-2016 11:42-0400 SaO2% (BldA) [Mass fraction] 96 % Zahra Head RN [facility]; [facility] Work Phone: Comment on above: Room air 04-05-2016 14:17-0400 BMI (Body Mass Index) 42.16 kg/m2 Zahra Head RN [facility]; [facility] Work Phone: 04-05-2016 14:17-0400 Body weight 107.96 kg Zahra Head RN [facility]; [facility] Work Phone: 04-05-2016 14:17-0400 BP Diastolic 76 mm[Hg] Zahra Head RN [facility]; [facility] Work Phone: Comment on above: Patient Position: Sitting; Cuff Location : Left Arm; Cuff Size: Large 04-05-2016 14:17-0400 BP Systolic 128 mm[Hg] Zahra Head RN [facility]; [facility] Work Phone: Comment on above: Patient Position: Sitting; Cuff Location : Left Arm; Cuff Size: Large 04-05-2016 14:17-0400 BSA (Body Surface Area) 2.08 m2 Zahra Head RN [facility]; [facility] Work Phone: 04-05-2016 14:17-0400 Height 160.02 cm Zahra Head RN [facility]; [facility] Work Phone: 04-05-2016 14:17-0400 Pulse (Heart Rate) 68 /min Zahra Head RN [facility]; [facility] Work Phone: Comment on above: Pattern: Regular 04-05-2016 14:17-0400 Pulse Oximetry 98 % Domi Handley [facility]; [facility] Work Phone: Comment on above: Room air 04-05-2016 14:17-0400 Respiratory Rate 18 /min Zahra Head RN [facility]; [facility] Work Phone: Comment on above: Pattern: Unlabored 04-05-2016 14:17-0400 SaO2% (BldA) [Mass fraction] 98 % Zahra Head RN [facility]; [facility] Work Phone: Comment on above: Room air 01-19-2016 12:18-0500 BMI (Body Mass Index) 43.78 kg/m2 Zahra Head RN [facility]; [facility] Work Phone: 01-19-2016 12:18-0500 Body weight 112.1 kg Zahra Head RN [facility]; [facility] Work Phone: 01-19-2016 12:18-0500 BP Diastolic 82 mm[Hg] Zahra Head RN [facility]; [facility] Work Phone: Comment on above: Patient Position: Sitting; Cuff Location : Left Arm; Cuff Size: Large 01-19-2016 12:18-0500 BP Systolic 138 mm[Hg] Zahra Head RN [facility]; [facility] Work Phone: Comment on above: Patient Position: Sitting; Cuff Location : Left Arm; Cuff Size: Large 01-19-2016 12:18-0500 BSA (Body Surface Area) 2.12 m2 Zahra Head RN [facility]; [facility] Work Phone: 01-19-2016 12:18-0500 Height 160.02 cm Zahra Head RN [facility]; [facility] Work Phone: 01-19-2016 12:18-0500 Pulse (Heart Rate) 88 /min Zahra Head RN [facility]; [facility] Work Phone: Comment on above: Pattern: Regular 01-19-2016 12:18-0500 Pulse Oximetry 97 % Domi Handley [facility]; [facility] Work Phone: Comment on above: Room air 01-19-2016 12:18-0500 Respiratory Rate 18 /min Zahra Head RN [facility]; [facility] Work Phone: Comment on above: Pattern: Unlabored 01-19-2016 12:18-0500 SaO2% (BldA) [Mass fraction] 97 % Zahra Head RN [facility]; [facility] Work Phone: Comment on above: Room air 12-06-2015 11:18-0500 BMI (Body Mass Index) 42.89 kg/m2 Zahra Head RN [facility]; [facility] Work Phone: 12-06-2015 11:18-0500 Body weight 109.83 kg Zahra Head RN [facility]; [facility] Work Phone: 12-06-2015 11:18-0500 BP Diastolic 82 mm[Hg] Zahra Head RN [facility]; [facility] Work Phone: Comment on above: Patient Position: Sitting; Cuff Location : Left Arm; Cuff Size: Large 12-06-2015 11:18-0500 BP Systolic 128 mm[Hg] Zahra Head RN [facility]; [facility] Work Phone: Comment on above: Patient Position: Sitting; Cuff Location : Left Arm; Cuff Size: Large 12-06-2015 11:18-0500 BSA (Body Surface Area) 2.1 m2 Zahra Head RN [facility]; [facility] Work Phone: 12-06-2015 11:18-0500 Height 160.02 cm Zahra Head RN [facility]; [facility] Work Phone: 12-06-2015 11:18-0500 Pulse (Heart Rate) 104 /min Zahra Head RN [facility]; [facility] Work Phone: Comment on above: Pattern: Regular 12-06-2015 11:18-0500 Pulse Oximetry 94 % Domi Handley [facility]; [facility] Work Phone: Comment on above: Room air 12-06-2015 11:18-0500 Respiratory Rate 20 /min Zahra Head RN [facility]; [facility] Work Phone: Comment on above: Pattern: Unlabored 12-06-2015 11:18-0500 SaO2% (BldA) [Mass fraction] 94 % Zahra Head RN [facility]; [facility] Work Phone: Comment on above: Room air 11-29-2015 13:44-0500 BMI (Body Mass Index) 43.44 kg/m2 Zahra Head RN [facility]; [facility] Work Phone: 11-29-2015 13:44-0500 Body weight 111.25 kg Zahra Head RN [facility]; [facility] Work Phone: 11-29-2015 13:44-0500 BP Diastolic 86 mm[Hg] Zahra Head RN [facility]; [facility] Work Phone: Comment on above: Patient Position: Sitting; Cuff Location : Left Arm; Cuff Size: Large 11-29-2015 13:44-0500 BP Systolic 128 mm[Hg] Zahra Head RN [facility]; [facility] Work Phone: Comment on above: Patient Position: Sitting; Cuff Location : Left Arm; Cuff Size: Large 11-29-2015 13:44-0500 BSA (Body Surface Area) 2.11 m2 Zahra Head RN [facility]; [facility] Work Phone: 11-29-2015 13:44-0500 Height 160.02 cm Zahra Head RN [facility]; [facility] Work Phone: 11-29-2015 13:44-0500 Pulse (Heart Rate) 84 /min Zahra Head RN [facility]; [facility] Work Phone: Comment on above: Pattern: Regular 11-29-2015 13:44-0500 Pulse Oximetry 98 % Domi Handley [facility]; [facility] Work Phone: Comment on above: Room air 11-29-2015 13:44-0500 Respiratory Rate 18 /min Zahra Head RN [facility]; [facility] Work Phone: Comment on above: Pattern: Unlabored 11-29-2015 13:44-0500 SaO2% (BldA) [Mass fraction] 98 % Zahra Head RN [facility]; [facility] Work Phone: Comment on above: Room air 11-04-2015 09:54-0500 BMI (Body Mass Index) 43.75 kg/m2 Zahra Head RN [facility]; [facility] Work Phone: 11-04-2015 09:54-0500 Body Temperature 97.5 [degF] Zahra Head RN [facility]; [facility] Work Phone: Comment on above: Method: Temporal 11-04-2015 09:54-0500 Body weight 112.04 kg Zahra Head RN [facility]; [facility] Work Phone: 11-04-2015 09:54-0500 BP Diastolic 70 mm[Hg] Zahra Head RN [facility]; [facility] Work Phone: Comment on above: Patient Position: Sitting; Cuff Location : Left Arm; Cuff Size: Large 11-04-2015 09:54-0500 BP Systolic 122 mm[Hg] Zahra Head RN [facility]; [facility] Work Phone: Comment on above: Patient Position: Sitting; Cuff Location : Left Arm; Cuff Size: Large 11-04-2015 09:54-0500 BSA (Body Surface Area) 2.12 m2 Zahra Head RN [facility]; [facility] Work Phone: 11-04-2015 09:54-0500 Height 160.02 cm Zahra Head RN [facility]; [facility] Work Phone: 11-04-2015 09:54-0500 Pulse (Heart Rate) 87 /min Zahra Head RN [facility]; [facility] Work Phone: Comment on above: Pattern: Regular 11-04-2015 09:54-0500 Pulse Oximetry 95 % Domi Handley [facility]; [facility] Work Phone: Comment on above: Room air 11-04-2015 09:54-0500 Respiratory Rate 20 /min Zahra Head RN [facility]; [facility] Work Phone: Comment on above: Pattern: Unlabored 11-04-2015 09:54-0500 SaO2% (BldA) [Mass fraction] 95 % Zahra Head RN [facility]; [facility] Work Phone: Comment on above: Room air 10-20-2015 11:51-0500 BMI (Body Mass Index) 44.73 kg/m2 Zahra Head RN [facility]; [facility] Work Phone: 10-20-2015 11:51-0500 Body weight 114.53 kg Zahra Head RN [facility]; [facility] Work Phone: 10-20-2015 11:51-0500 BP Diastolic 78 mm[Hg] Zahra Head RN [facility]; [facility] Work Phone: Comment on above: Patient Position: Sitting; Cuff Location : Left Arm; Cuff Size: Large 10-20-2015 11:51-0500 BP Systolic 148 mm[Hg] Zahra Head RN [facility]; [facility] Work Phone: Comment on above: Patient Position: Sitting; Cuff Location : Left Arm; Cuff Size: Large 10-20-2015 11:51-0500 BSA (Body Surface Area) 2.14 m2 Zahra Head RN [facility]; [facility] Work Phone: 10-20-2015 11:51-0500 Height 160.02 cm Zahra Head RN [facility]; [facility] Work Phone: 10-20-2015 11:51-0500 Pulse (Heart Rate) 96 /min Zahra Head RN [facility]; [facility] Work Phone: Comment on above: Pattern: Regular 10-20-2015 11:51-0500 Pulse Oximetry 98 % Domi Handley [facility]; [facility] Work Phone: Comment on above: Room air 10-20-2015 11:51-0500 Respiratory Rate 20 /min Zahra Head RN [facility]; [facility] Work Phone: Comment on above: Pattern: Unlabored 10-20-2015 11:51-0500 SaO2% (BldA) [Mass fraction] 98 % Zahra Head RN [facility]; [facility] Work Phone: Comment on above: Room air 08-25-2015 09:50-0400 BMI (Body Mass Index) 43.83 kg/m2 Shannon Cordova [employer] [facility]; [facility] Work Phone: 08-25-2015 09:50-0400 Body Temperature 97.8 [degF] Shannon Mathurrb [employer] [facility]; [facility] Work Phone: 08-25-2015 09:50-0400 Body weight 112.24 kg Shannon Cordova [employer] [facility]; [facility] Work Phone: 08-25-2015 09:50-0400 BP Diastolic 90 mm[Hg] Shannon Slarb [employer] [facility]; [facility] Work Phone: Comment on above: Patient Position: Sitting; Cuff Location : Left Arm; Cuff Size: Standard 08-25-2015 09:50-0400 BP Systolic 170 mm[Hg] Shannon Mathurrb [employer] [facility]; [facility] Work Phone: Comment on above: Patient Position: Sitting; Cuff Location : Left Arm; Cuff Size: Standard 08-25-2015 09:50-0400 BSA (Body Surface Area) 2.12 m2 Shannon Mathurrb [employer] [facility]; [facility] Work Phone: 08-25-2015 09:50-0400 Height 160.02 cm Shannon Cordova [employer] [facility]; [facility] Work Phone: 08-25-2015 09:50-0400 Pulse (Heart Rate) 87 /min Shannon Cordova [employer] [facility]; [facility] Work Phone: Comment on above: Pattern: Regular 08-25-2015 09:50-0400 Pulse Oximetry 96 % Domi Handley [facility]; [facility] Work Phone: Comment on above: Room air 08-25-2015 09:50-0400 Respiratory Rate 18 /min Shannon Cordova [employer] [facility]; [facility] Work Phone: Comment on above: Pattern: Unlabored 08-25-2015 09:50-0400 SaO2% (BldA) [Mass fraction] 96 % Shannon Tasha VELAZQUEZ [facility]; [facility] Work Phone: Comment on above: Room air 01-28-2015 14:31-0500 BMI (Body Mass Index) 43.83 kg/m2 Zahra Head RN [facility]; [facility] Work Phone: 01-28-2015 14:31-0500 Body weight 112.24 kg Zahra Head RN [facility]; [facility] Work Phone: 01-28-2015 14:31-0500 BP Diastolic 82 mm[Hg] Zahra Head RN [facility]; [facility] Work Phone: Comment on above: Patient Position: Sitting; Cuff Location : Left Arm; Cuff Size: Large 01-28-2015 14:31-0500 BP Systolic 144 mm[Hg] Zahra Head RN [facility]; [facility] Work Phone: Comment on above: Patient Position: Sitting; Cuff Location : Left Arm; Cuff Size: Large 01-28-2015 14:31-0500 BSA (Body Surface Area) 2.12 m2 Zahra Head RN [facility]; [facility] Work Phone: 01-28-2015 14:31-0500 Height 160.02 cm Zahra Head RN [facility]; [facility] Work Phone: 01-28-2015 14:31-0500 Pulse (Heart Rate) 82 /min Zahra Head RN [facility]; [facility] Work Phone: Comment on above: Pattern: Regular 01-28-2015 14:31-0500 Pulse Oximetry 96 % Domi Handley [facility]; [facility] Work Phone: Comment on above: Room air 01-28-2015 14:31-0500 Respiratory Rate 18 /min Zahra Head RN [facility]; [facility] Work Phone: Comment on above: Pattern: Unlabored 01-28-2015 14:31-0500 SaO2% (BldA) [Mass fraction] 96 % Zahra Head RN [facility]; [facility] Work Phone: Comment on above: Room air 03-06-2014 09:35-0400 BMI (Body Mass Index) 43.83 kg/m2 Ying Richardson MARCUS [facility]; [facility] Work Phone: 03-06-2014 09:35-0400 Body Temperature 98.7 [degF] Ying Richardson MARCUS [facility]; [facility] Work Phone: Comment on above: Method: Oral 03-06-2014 09:35-0400 Body weight 112.24 kg Ying Richardson MARCUS [facility]; [facility] Work Phone: 03-06-2014 09:35-0400 BP Diastolic 86 mm[Hg] iYng Richardson MARCUS [facility]; [facility] Work Phone: Comment on above: Patient Position: Sitting; Cuff Location : Left Arm; Cuff Size: Standard 03-06-2014 09:35-0400 BP Systolic 142 mm[Hg] Ying Richardson MARCUS [facility]; [facility] Work Phone: Comment on above: Patient Position: Sitting; Cuff Location : Left Arm; Cuff Size: Standard 03-06-2014 09:35-0400 BSA (Body Surface Area) 2.12 m2 Ying Richardson MARCUS [facility]; [facility] Work Phone: 03-06-2014 09:35-0400 Height 160.02 cm Ying Meansanuj VELAZQUEZ [facility]; [facility] Work Phone: 03-06-2014 09:35-0400 Pulse (Heart Rate) 84 /min Ying Richardson MARCUS [facility]; [facility] Work Phone: Comment on above: Pattern: Regular 03-06-2014 09:35-0400 Pulse Oximetry 98 % Domi Handley [facility]; [facility] Work Phone: Comment on above: Room air 03-06-2014 09:35-0400 SaO2% (BldA) [Mass fraction] 98 % Ying Richardson LPN [facility]; [facility] Work Phone: Comment on above: Room air 01-09-2014 11:13-0500 BMI (Body Mass Index) 43.83 kg/m2 Zahra Head RN [facility]; [facility] Work Phone: 01-09-2014 11:13-0500 Body weight 112.24 kg Zahra Head RN [facility]; [facility] Work Phone: 01-09-2014 11:13-0500 BP Diastolic 82 mm[Hg] Zahra Head RN [facility]; [facility] Work Phone: Comment on above: Patient Position: Sitting; Cuff Location : Left Arm; Cuff Size: Large 01-09-2014 11:13-0500 BP Systolic 140 mm[Hg] Zahra Head RN [facility]; [facility] Work Phone: Comment on above: Patient Position: Sitting; Cuff Location : Left Arm; Cuff Size: Large 01-09-2014 11:13-0500 BSA (Body Surface Area) 2.12 m2 Zahra Head RN [facility]; [facility] Work Phone: 01-09-2014 11:13-0500 Height 160.02 cm Zahra Head RN [facility]; [facility] Work Phone: 01-09-2014 11:13-0500 Pulse (Heart Rate) 82 /min Zahra Head RN [facility]; [facility] Work Phone: Comment on above: Pattern: Regular 01-09-2014 11:13-0500 Pulse Oximetry 95 % Domi Handley [facility]; [facility] Work Phone: Comment on above: Room air 01-09-2014 11:13-0500 Respiratory Rate 20 /min Zahra Head RN [facility]; [facility] Work Phone: Comment on above: Pattern: Unlabored 01-09-2014 11:13-0500 SaO2% (BldA) [Mass fraction] 95 % Zahra Head RN [facility]; [facility] Work Phone: Comment on above: Room air 12-03-2013 10:33-0500 BMI (Body Mass Index) 44.11 kg/m2 Soheila Moore CMA [facility]; [facility] Work Phone: 12-03-2013 10:33-0500 Body weight 112.95 kg Soheila Moore [facility]; [facility] Work Phone: 12-03-2013 10:33-0500 BP Diastolic 82 mm[Hg] Soheila Moore [facility]; [facility] Work Phone: Comment on above: Patient Position: Sitting; Cuff Location : Left Arm; Cuff Size: Standard 12-03-2013 10:33-0500 BP Systolic 130 mm[Hg] Soheila Moore [facility]; [facility] Work Phone: Comment on above: Patient Position: Sitting; Cuff Location : Left Arm; Cuff Size: Standard 12-03-2013 10:33-0500 BSA (Body Surface Area) 2.12 m2 Soheila Moore [facility]; [facility] Work Phone: 12-03-2013 10:33-0500 Height 160.02 cm Soheila Moore [facility]; [facility] Work Phone: 12-03-2013 10:33-0500 Pulse (Heart Rate) 95 /min Soheila Moore [facility]; [facility] Work Phone: Comment on above: Pattern: Regular 12-03-2013 10:33-0500 Pulse Oximetry 98 % Domi Handley [facility]; [facility] Work Phone: Comment on above: Room air 12-03-2013 10:33-0500 Respiratory Rate 16 /min Soheila Moore [facility]; [facility] Work Phone: Comment on above: Pattern: Unlabored 12-03-2013 10:33-0500 SaO2% (BldA) [Mass fraction] 98 % Soheila Moore [facility]; [facility] Work Phone: Comment on above: Room air 04-30-2013 10:34-0400 BMI (Body Mass Index) 44.11 kg/m2 Ying Richardson LPN [facility]; [facility] Work Phone: 04-30-2013 10:34-0400 Body Temperature 98.2 [degF] Ying Richardson LPN [facility]; [facility] Work Phone: Comment on above: Method: Oral 04-30-2013 10:34-0400 Body weight 112.95 kg Ying Richardson LPN [facility]; [facility] Work Phone: 04-30-2013 10:34-0400 BP Diastolic 74 mm[Hg] Ying Richardson LPN [facility]; [facility] Work Phone: Comment on above: Patient Position: Sitting; Cuff Location : Left Arm; Cuff Size: Standard 04-30-2013 10:34-0400 BP Systolic 126 mm[Hg] Ying Richardson MARCUS [facility]; [facility] Work Phone: Comment on above: Patient Position: Sitting; Cuff Location : Left Arm; Cuff Size: Standard 04-30-2013 10:34-0400 BSA (Body Surface Area) 2.12 m2 Ying Richardson LPN [facility]; [facility] Work Phone: 04-30-2013 10:34-0400 Height 160.02 cm Ying Richardson MARCUS [facility]; [facility] Work Phone: 04-30-2013 10:34-0400 Pulse (Heart Rate) 84 /min Ying Richardson [employer] [facility]; [facility] Work Phone: Comment on above: Pattern: Regular 04-30-2013 10:34-0400 Pulse Oximetry 98 % Domi Handley [facility]; [facility] Work Phone: Comment on above: Room air 04-30-2013 10:34-0400 Respiratory Rate 18 /min Ying Richardson MARCUS [facility]; [facility] Work Phone: 04-30-2013 10:34-0400 SaO2% (BldA) [Mass fraction] 98 % Ying Richardson MARCUS [facility]; [facility] Work Phone: Comment on above: Room air 04-02-2013 11:35-0400 BMI (Body Mass Index) 44.11 kg/m2 Ying Richardson MARCUS [facility]; [facility] Work Phone: 04-02-2013 11:35-0400 Body Temperature 98.4 [degF] Ying Richardson MARCUS [facility]; [facility] Work Phone: Comment on above: Method: Oral 04-02-2013 11:35-0400 Body weight 112.95 kg Ying Richardson MARCUS [facility]; [facility] Work Phone: 04-02-2013 11:35-0400 BP Diastolic 80 mm[Hg] Ying Richardson MARCUS [facility]; [facility] Work Phone: Comment on above: Patient Position: Sitting; Cuff Location : Left Arm; Cuff Size: Standard 04-02-2013 11:35-0400 BP Systolic 138 mm[Hg] Ying Richardson MARCUS [facility]; [facility] Work Phone: Comment on above: Patient Position: Sitting; Cuff Location : Left Arm; Cuff Size: Standard 04-02-2013 11:35-0400 BSA (Body Surface Area) 2.12 m2 Ying Richardson MARCUS [facility]; [facility] Work Phone: 04-02-2013 11:35-0400 Height 160.02 cm Ying Richardson MARCUS [facility]; [facility] Work Phone: 04-02-2013 11:35-0400 Pulse (Heart Rate) 90 /min Ying Richardson MARCUS [facility]; [facility] Work Phone: Comment on above: Pattern: Regular 04-02-2013 11:35-0400 Pulse Oximetry 97 % Domi Handley [facility]; [facility] Work Phone: Comment on above: Room air 04-02-2013 11:35-0400 SaO2% (BldA) [Mass fraction] 97 % Ying Dylan VELAZQUEZ [facility]; [facility] Work Phone: Comment on above: Room air 06-06-2012 10:57-0400 BMI (Body Mass Index) 44.11 kg/m2 Audrey Birch RN [facility]; [facility] Work Phone: 06-06-2012 10:57-0400 Body weight 112.95 kg Audrey Birch RN [facility]; [facility] Work Phone: 06-06-2012 10:57-0400 BP Diastolic 88 mm[Hg] Audrey Birch RN [facility]; [facility] Work Phone: Comment on above: Patient Position: Sitting; Cuff Location : Left Arm; Cuff Size: Standard 06-06-2012 10:57-0400 BP Systolic 140 mm[Hg] Audrey Birch RN [facility]; [facility] Work Phone: Comment on above: Patient Position: Sitting; Cuff Location : Left Arm; Cuff Size: Standard 06-06-2012 10:57-0400 BSA (Body Surface Area) 2.12 m2 Audrey Birch RN [facility]; [facility] Work Phone: 06-06-2012 10:57-0400 Height 160.02 cm Audrey Birch RN [facility]; [facility] Work Phone: 06-06-2012 10:57-0400 Pulse (Heart Rate) 70 /min Audrey Birch RN [facility]; [facility] Work Phone: Comment on above: Pattern: Regular 06-06-2012 10:57-0400 Respiratory Rate 16 /min Audrey Birch RN [facility]; [facility] Work Phone: Comment on above: Pattern: Unlabored 05-24-2012 08:01-0400 BMI (Body Mass Index) 44.11 kg/m2 KENNETH Paul LPN [facility]; [facility] Work Phone: 05-24-2012 08:01-0400 Body Temperature 98 [degF] KENNETH Paul LPN [facility]; [facility] Work Phone: Comment on above: Method: Oral 05-24-2012 08:01-0400 Body weight 112.95 kg KENNETH Paul LPN [facility]; [facility] Work Phone: 05-24-2012 08:01-0400 BP Diastolic 94 mm[Hg] KENNETH Paul LPN [facility]; [facility] Work Phone: Comment on above: Patient Position: Sitting; Cuff Location : Left Arm; Cuff Size: Large 05-24-2012 08:01-0400 BP Systolic 164 mm[Hg] KENNETH Paul LPN [facility]; [facility] Work Phone: Comment on above: Patient Position: Sitting; Cuff Location : Left Arm; Cuff Size: Large 05-24-2012 08:01-0400 BSA (Body Surface Area) 2.12 m2 KENNETH Paul LPN [facility] Work Phone: 05-24-2012 08:01-0400 Height 160.02 cm KENNETH Paul LPN [facility]; [facility] Work Phone: 05-24-2012 08:01-0400 Pulse (Heart Rate) 78 /min KENNETH Paul LPN [facility]; [facility] Work Phone: Comment on above: Pattern: Regular 05-24-2012 08:01-0400 Respiratory Rate 24 /min KENNETH Paul LPN [facility]; [facility] Work Phone: Comment on above: Pattern: Unlabored 04-25-2012 14:04-0400 BMI (Body Mass Index) 44.2 kg/m2 Audrey Birch RN [facility]; [facility] Work Phone: 04-25-2012 14:04-0400 Body weight 113.17 kg Audrey Birch RN [facility]; [facility] Work Phone: 04-25-2012 14:04-0400 BP Diastolic 82 mm[Hg] Audrey Birch RN [facility]; [facility] Work Phone: Comment on above: Patient Position: Sitting; Cuff Location : Left Arm; Cuff Size: Large 04-25-2012 14:04-0400 BP Systolic 140 mm[Hg] Audrey Birch RN [facility]; [facility] Work Phone: Comment on above: Patient Position: Sitting; Cuff Location : Left Arm; Cuff Size: Large 04-25-2012 14:040400 BSA (Body Surface Area) 2.12 m2 Audrey Birch RN [facility]; [facility] Work Phone: 04-25-2012 14:04040 Height 160.02 cm Audrey Birch RN [facility]; [facility] Work Phone: 04-25-2012 14:040400 Pulse (Heart Rate) 92 /min Audrye Birch RN [facility]; [facility] Work Phone: Comment on above: Pattern: Regular 04-25-2012 14:040400 Respiratory Rate 18 /min Audrey Birch RN [facility]; [facility] Work Phone: Comment on above: Pattern: Unlabored 04-12-2012 14:26-0400 BMI (Body Mass Index) 44.11 kg/m2 Kirti Berger RN [facility]; [facility] Work Phone: 04-12-2012 14:26-0400 Body Temperature 98.7 [degF] Kirti Berger RN [facility]; [facility] Work Phone: Comment on above: Method: Oral 04-12-2012 14:0400 Body weight 112.95 kg Kirti Berger RN [facility]; [facility] Work Phone: 04-12-2012 14:26-0400 BP Diastolic 94 mm[Hg] Kirti Berger RN [facility]; [facility] Work Phone: Comment on above: Patient Position: Sitting; Cuff Location : Left Arm; Cuff Size: Large 04-12-2012 14:26-0400 BP Systolic 158 mm[Hg] Kirti Berger RN [facility]; [facility] Work Phone: Comment on above: Patient Position: Sitting; Cuff Location : Left Arm; Cuff Size: Large 04-12-2012 14:260400 BSA (Body Surface Area) 2.12 m2 Kirti Berger RN [facility]; [facility] Work Phone: 04-12-2012 [id number] Height 160.02 cm Kirti Berger RN [facility]; [facility] Work Phone: 04-12-2012 14:26-0400 Pulse (Heart Rate) 108 /min Kirti Berger RN [facility]; [facility] Work Phone: Comment on above: Pattern: Regular 04-12-2012 14:26-0400 Respiratory Rate 20 /min Kirti Berger RN [facility]; [facility] Work Phone: Comment on above: Pattern: Unlabored 02-05-2012 13:32-0400 BMI (Body Mass Index) 40.8 kg/m2 Ying Richardson LPN [facility]; [facility] Work Phone: 02-05-2012 13:32-0400 Body Temperature 98.2 [degF] Ying Richardson LPN [facility]; [facility] Work Phone: Comment on above: Method: Oral 02-05-2012 13:32-0400 Body weight 104.46 kg Ying Richardson LPN [facility]; [facility] Work Phone: 02-05-2012 13:32-0400 BP Diastolic 80 mm[Hg] Ying Richardson LPN [facility]; [facility] Work Phone: Comment on above: Patient Position: Sitting; Cuff Location : Left Arm; Cuff Size: Standard 02-05-2012 13:32-0400 BP Systolic 142 mm[Hg] Ying Richardson LPN [facility]; [facility] Work Phone: Comment on above: Patient Position: Sitting; Cuff Location : Left Arm; Cuff Size: Standard 02-05-2012 13:32-0400 BSA (Body Surface Area) 2.05 m2 Ying Richardson LPN [facility]; [facility] Work Phone: 02-05-2012 13:32-0400 Height 160.02 cm Ying Richardson LPN [facility]; [facility] Work Phone: 02-05-2012 13:32-0400 Pulse (Heart Rate) 78 /min Ying Richardson LPN [facility]; [facility] Work Phone: Comment on above: Pattern: Regular 02-05-2012 13:32-0400 Respiratory Rate 16 /min Ying Richardson LPN [facility]; [facility] Work Phone: 01-17-2012 12:09-0500 BMI (Body Mass Index) 40.8 kg/m2 Ying Richardson LPN [facility]; [facility] Work Phone: 01-17-2012 12:09-0500 Body Temperature 97.2 [degF] Ying Richardson LPN [facility]; [facility] Work Phone: Comment on above: Method: Oral 01-17-2012 12:09-0500 Body weight 104.46 kg Ying Richardson LPN [facility]; [facility] Work Phone: 01-17-2012 12:09-0500 BP Diastolic 80 mm[Hg] Ying Richardson LPN [facility]; [facility] Work Phone: Comment on above: Patient Position: Sitting; Cuff Location : Left Arm; Cuff Size: Standard 01-17-2012 12:09-0500 BP Systolic 124 mm[Hg] Ying Richardson LPN [facility]; [facility] Work Phone: Comment on above: Patient Position: Sitting; Cuff Location : Left Arm; Cuff Size: Standard 01-17-2012 12:09-0500 BSA (Body Surface Area) 2.05 m2 Ying Richardson LPN [facility]; [facility] Work Phone: 01-17-2012 12:09-0500 Height 160.02 cm Ying Richardson MARCUS [facility]; [facility] Work Phone: 01-17-2012 12:09-0500 Pulse (Heart Rate) 82 /min Ying Richardson MARCUS [facility]; [facility] Work Phone: Comment on above: Pattern: Regular 01-17-2012 12:09-0500 Pulse Oximetry 97 % Domi Handley [facility]; [facility] Work Phone: Comment on above: Room air 01-17-2012 12:09-0500 Respiratory Rate 17 /min Ying Richardson LPN [facility]; [facility] Work Phone: 01-17-2012 12:09-0500 SaO2% (BldA) [Mass fraction] 97 % Ying Richardson LPN [facility]; [facility] Work Phone: Comment on above: Room air 11-08-2011 10:06-0500 BMI (Body Mass Index) 40.8 kg/m2 Audrey Birch RN [facility]; [facility] Work Phone: 11-08-2011 10:06-0500 Body Temperature 98.4 [degF] Audrey Birch RN [facility]; [facility] Work Phone: Comment on above: Method: Oral 11-08-2011 10:06-0500 Body weight 104.46 kg Audrey Birch RN [facility]; [facility] Work Phone: 11-08-2011 10:06-0500 BP Diastolic 82 mm[Hg] Audrey Birch RN [facility]; [facility] Work Phone: Comment on above: Patient Position: Sitting; Cuff Location : Left Arm; Cuff Size: Standard 11-08-2011 10:06-0500 BP Systolic 128 mm[Hg] Audrey Birch RN [facility]; [facility] Work Phone: Comment on above: Patient Position: Sitting; Cuff Location : Left Arm; Cuff Size: Standard 11-08-2011 10:06-0500 BSA (Body Surface Area) 2.05 m2 Audrey Birch RN [facility]; [facility] Work Phone: 11-08-2011 10:06-0500 Height 160.02 cm Audrey Birch RN [facility]; [facility] Work Phone: 11-08-2011 10:06-0500 Pulse (Heart Rate) 76 /min Audrey Birch RN [facility]; [facility] Work Phone: Comment on above: Pattern: Regular 11-08-2011 10:06-0500 Respiratory Rate 18 /min Audrey Birch RN [facility]; [facility] Work Phone: Comment on above: Pattern: Unlabored 10-27-2011 09:32-0500 Body Temperature 97.2 [degF] Audrey Birch RN [facility]; [facility] Work Phone: Comment on above: Method: Oral 10-27-2011 09:32-0500 Body weight 104.65 kg Audrey Birch RN [facility]; [facility] Work Phone: 10-27-2011 09:32-0500 BP Diastolic 72 mm[Hg] Audrey Birch RN [facility]; [facility] Work Phone: Comment on above: Patient Position: Sitting; Cuff Location : Left Arm; Cuff Size: Standard 10-27-2011 09:32-0500 BP Systolic 122 mm[Hg] Audrey Birch RN [facility]; [facility] Work Phone: Comment on above: Patient Position: Sitting; Cuff Location : Left Arm; Cuff Size: Standard 10-27-2011 09:32-0500 Pulse (Heart Rate) 62 /min Audrey Birch RN [facility]; [facility] Work Phone: Comment on above: Pattern: Regular 10-27-2011 09:32-0500 Respiratory Rate 16 /min Audrey Birch RN [facility]; [facility] Work Phone: Comment on above: Pattern: Unlabored 03-20-2011 15:18-0400 BMI (Body Mass Index) 37.66 kg/m2 KENNETH Paul LPN [facility]; [facility] Work Phone: 03-20-2011 15:18-0400 Body Temperature 97.6 [degF] KENNETH Paul LPN [facility]; [facility] Work Phone: Comment on above: Method: Oral 03-20-2011 15:18-0400 Body weight 97.98 kg KENNETH Paul LPN [facility]; [facility] Work Phone: 03-20-2011 15:18-0400 BP Diastolic 84 mm[Hg] KENNETH Paul LPN [facility]; [facility] Work Phone: Comment on above: Patient Position: Sitting; Cuff Location : Left Arm; Cuff Size: Standard 03-20-2011 15:18-0400 BP Systolic 126 mm[Hg] KENNETH Paul LPN [facility]; [facility] Work Phone: Comment on above: Patient Position: Sitting; Cuff Location : Left Arm; Cuff Size: Standard 03-20-2011 15:18-0400 BSA (Body Surface Area) 2.01 m2 KENNETH Paul LPN [facility]; [facility] Work Phone: 03-20-2011 15:18-0400 Height 161.29 cm KENNETH Paul MARCUS [facility]; [facility] Work Phone: 03-20-2011 15:18-0400 Pulse (Heart Rate) 76 /min KENNETH Paul LPN [facility]; [facility] Work Phone: Comment on above: Pattern: Regular 03-20-2011 15:18-0400 Respiratory Rate 22 /min KENNETH Paul LPN [facility]; [facility] Work Phone: Comment on above: Pattern: Unlabored 11-14-2010 14:57-0500 BMI (Body Mass Index) 43.76 kg/m2 KENNETH Paul MARCUS [facility]; [facility] Work Phone: 11-14-2010 14:57-0500 Body Temperature 97.6 [degF] KENNETH Paul LPN [facility]; [facility] Work Phone: Comment on above: Method: Oral 11-14-2010 14:57-0500 Body weight 113.85 kg KENNETH Paul LPN [facility]; [facility] Work Phone: 11-14-2010 14:57-0500 BP Diastolic 80 mm[Hg] KENNETH Paul MARCUS [facility]; [facility] Work Phone: Comment on above: Patient Position: Sitting; Cuff Location : Left Arm; Cuff Size: Large 11-14-2010 14:57-0500 BP Systolic 128 mm[Hg] KENNETH Paul LPN [facility]; [facility] Work Phone: Comment on above: Patient Position: Sitting; Cuff Location : Left Arm; Cuff Size: Large 11-14-2010 14:57-0500 BSA (Body Surface Area) 2.14 m2 KENNETH Paul LPN [facility]; [facility] Work Phone: 11-14-2010 14:57-0500 Height 161.29 cm KENNETH Paul LPN [facility]; [facility] Work Phone: 11-14-2010 14:57-0500 Pulse (Heart Rate) 74 /min KENNETH Paul LPN [facility]; [facility] Work Phone: Comment on above: Pattern: Regular 11-14-2010 14:57-0500 Respiratory Rate 20 /min KENNETH Paul LPN [facility]; [facility] Work Phone: Comment on above: Pattern: Unlabored 11-03-2010 10:25-0500 BMI (Body Mass Index) 43.67 kg/m2 Zahra Head RN [facility]; [facility] Work Phone: 11-03-2010 10:25-0500 Body weight 113.6 kg Zahra Head RN [facility]; [facility] Work Phone: 11-03-2010 10:25-0500 BP Diastolic 80 mm[Hg] Zahra Head RN [facility]; [facility] Work Phone: Comment on above: Patient Position: Sitting; Cuff Location : Left Arm; Cuff Size: Large 11-03-2010 10:25-0500 BP Systolic 128 mm[Hg] Zahra Head RN [facility]; [facility] Work Phone: Comment on above: Patient Position: Sitting; Cuff Location : Left Arm; Cuff Size: Large 11-03-2010 10:25-0500 BSA (Body Surface Area) 2.14 m2 Zahra Head RN [facility]; [facility] Work Phone: 11-03-2010 10:25-0500 Height 161.29 cm Zahra Head RN [facility]; [facility] Work Phone: 11-03-2010 10:25-0500 Pulse (Heart Rate) 60 /min Zahra Head RN [facility]; [facility] Work Phone: Comment on above: Pattern: Regular 11-03-2010 10:25-0500 Respiratory Rate 20 /min Zahra Head RN [facility]; [facility] Work Phone: Comment on above: Pattern: Unlabored 10-28-2010 09:30-0500 BMI (Body Mass Index) 43.5 kg/m2 Zahra Head RN [facility]; [facility] Work Phone: 10-28-2010 09:30-0500 Body weight 113.17 kg Zahra Head RN [facility]; [facility] Work Phone: 10-28-2010 09:30-0500 BP Diastolic 84 mm[Hg] Zahra Head RN [facility]; [facility] Work Phone: Comment on above: Patient Position: Sitting; Cuff Location : Left Arm; Cuff Size: Large 10-28-2010 09:30-0500 BP Systolic 124 mm[Hg] Zahra Head RN [facility]; [facility] Work Phone: Comment on above: Patient Position: Sitting; Cuff Location : Left Arm; Cuff Size: Large 10-28-2010 09:30-0500 BSA (Body Surface Area) 2.14 m2 Zahra Head RN [facility]; [facility] Work Phone: 10-28-2010 09:30-0500 Height 161.29 cm Zahra Head RN [facility]; [facility] Work Phone: 10-28-2010 09:30-0500 Pulse (Heart Rate) 84 /min Zahra Head RN [facility]; [facility] Work Phone: Comment on above: Pattern: Regular 10-28-2010 09:30-0500 Respiratory Rate 20 /min Zahra Head RN [facility]; [facility] Work Phone: Comment on above: Pattern: Unlabored 06-27-2007 10:40-0400 Body weight 0 kg KENNETH Paul LPN [facility]; [facility] Work Phone: 06-27-2007 10:40-0400 BP Diastolic 64 mm[Hg] KENNETH Paul CORRECTIONAL SUPERVISOR [facility]; [facility] Work Phone: Comment on above: Patient Position: Sitting; Cuff Location : Left Arm; Cuff Size: Large 06-27-2007 10:40-0400 BP Systolic 110 mm[Hg] KENNETH Paul CORRECTIONAL SUPERVISOR [facility]; [facility] Work Phone: Comment on above: Patient Position: Sitting; Cuff Location : Left Arm; Cuff Size: Large 06-27-2007 10:40-0400 Head Circumference 0 cm Domi Handley [facility]; [facility] Work Phone: 06-27-2007 10:40-0400 Head Occipital-frontal circumference 0 cm KENNETH Paul MARCUS [facility]; [facility] Work Phone: 06-27-2007 10:40-0400 Height 0 cm KENNETH Paul MARCUS [facility]; [facility] Work Phone: 06-27-2007 10:40-0400 Pulse (Heart Rate) 72 /min KENNETH Paul CORRECTIONAL SUPERVISOR [facility]; [facility] Work Phone: Comment on above: Pattern: Regular 06-27-2007 10:40-0400 Respiratory Rate 20 /min KENNETH Paul MARCUS [facility]; [facility] Work Phone: Comment on above: Pattern: Unlabored 02-11-2007 14:24-0400 Body Temperature 98 [degF] KENNETH Paul LPN [facility]; [facility] Work Phone: Comment on above: Method: Oral 02-11-2007 14:24-0400 Body weight 0 kg KENNETH Paul CORRECTIONAL SUPERVISOR [facility]; [facility] Work Phone: 02-11-2007 14:24-0400 BP Diastolic 80 mm[Hg] KENNETH Paul MARCUS [facility]; [facility] Work Phone: Comment on above: Patient Position: Sitting; Cuff Location : Left Arm; Cuff Size: Large 02-11-2007 14:24-0400 BP Systolic 122 mm[Hg] KENNETH Paul MARCUS [facility]; [facility] Work Phone: Comment on above: Patient Position: Sitting; Cuff Location : Left Arm; Cuff Size: Large 02-11-2007 14:24-0400 Head Circumference 0 cm Domi Tawanda [facility]; [facility] Work Phone: 02-11-2007 14:24-0400 Head Occipital-frontal circumference 0 cm KENNETH Paul MARCUS [facility]; [facility] Work Phone: 02-11-2007 14:24-0400 Height 0 cm KENNETH Artem MARCUS [facility]; [facility] Work Phone: 02-11-2007 14:24-0400 Pulse (Heart Rate) 78 /min KENNETHKAVIN Paul LPN [facility]; [facility] Work Phone: Comment on above: Pattern: Regular 02-11-2007 14:24-0400 Respiratory Rate 20 /min KENNETH Paul MARCUS [facility]; [facility] Work Phone: Comment on above: Pattern: Unlabored 10-03-2006 11:43-0500 BMI (Body Mass Index) 46.21 kg/m2 Domi Tawanda [facility]; [facility] Work Phone: 10-03-2006 11:43-0500 Body Temperature 98.8 [degF] Domi Handley [facility]; [facility] Work Phone: Comment on above: Method: Undefined 10-03-2006 11:43-0500 Body weight 120.2 kg Domi Handley [facility]; [facility] Work Phone: 10-03-2006 11:43-0500 BP Diastolic 88 mm[Hg] Domi Handley [facility]; [facility] Work Phone: Comment on above: Patient Position: Sitting; Cuff Location : Left Arm; Cuff Size: Large 10-03-2006 11:43-0500 BP Systolic 124 mm[Hg] Domi Handley [facility]; [facility] Work Phone: Comment on above: Patient Position: Sitting; Cuff Location : Left Arm; Cuff Size: Large 10-03-2006 11:43-0500 BSA (Body Surface Area) 2.19 m2 Domi Handley [facility]; [facility] Work Phone: 10-03-2006 11:43-0500 Head Circumference 0 cm Domi Handley [facility]; [facility] Work Phone: 10-03-2006 11:43-0500 Head Occipital-frontal circumference 0 cm Domi Handley DO Work Phone: [facility]; [facility] Work Phone: 10-03-2006 11:43-0500 Height 161.29 cm Domi Handley [facility]; [facility] Work Phone: 10-03-2006 11:43-0500 Pulse (Heart Rate) 82 /min Domi Handley [facility]; [facility] Work Phone: Comment on above: Pattern: Regular 10-03-2006 11:43-0500 Respiratory Rate 20 /min Domi Handley [facility]; [facility] Work Phone: Comment on above: Pattern: Undefined Encounters Encounter Date Encounter Type Care Provider Facility Start: 09-21-2025 End: 09-21-2025 ambulatory Mary Cobb CORE JAVA ENGINEER [place]: 09-10-2025 End: 09-10-2025 ambulatory Mary Cobb CORE JAVA ENGINEER Facility:[facility] Start: 09-07-2025 End: 09-07-2025 Emergency department patient visit Dr. Dylan Herrera DO -Emergency Department Work Phone: Start: 05-26-2025 Non-patient / Non-visit Dr. Nuvia EVERETT -[facility] Work Phone: Start: 05-26-2025 End: 05-26-2025 ambulatory Mary Cobb CORE JAVA ENGINEER-C -Pulmonary Services/Neurology Start: 05-26-2025 End: 05-26-2025 Patient encounter procedure Zahra Renner CORE JAVA ENGINEER-C -Pulmonary Services/Neurology Work Phone: Start: 05-26-2025 End: 05-26-2025 ambulatory Zahra Renner NP Facility:[facility] Start: 05-18-2025 Registered Referred Mary santillan CORE JAVA ENGINEER-C -Laboratory Specimen Work Phone: Start: 05-18-2025 ambulatory Mary Cobb NP Fa cility:[facility] Start: 05-14-2025 End: 05-14-2025 Patient encounter procedure Zahra Renner CORE JAVA ENGINEER-C -[facility] Work Phone: Start: 05-14-2025 End: 05-14-2025 ambulatory Mary Cobb CORE JAVA ENGINEER-C [facility] Work Phone: Start: 04-24-2025 End: 04-24-2025 ambulatory Mary Cobb CORE JAVA ENGINEER-C [facility] Work Phone: Start: 04-24-2025 End: 04-24-2025 Patient encounter procedure Mary Cobb CORE JAVA ENGINEER-C -Laboratory Work Phone: Start: 04-24-2025 End: 04-24-2025 ambulatory Mary Cobb NP Facility:[facility] Start: 04-06-2025 End: 04-06-2025 Emergency department patient visit Mary Cobb CORE JAVA ENGINEER-C -Emergency Department Work Phone: Start: 04-06-2025 Registered Referred Mary santillan CORE JAVA ENGINEER-C -Laboratory, Specimen Work Phone: Start: 04-06-2025 ambulatory Mary Cobb NP Fa cility:[facility] Start: 12-01-2024 End: 12-01-2024 ambulatory Mary Cobb NP Facility:[facility] Start: 11-05-2024 End: 11-05-2024 ambulatory Mary Cobb NP [place] Start: 10-31-2024 End: 10-31-2024 ambulatory Mary Cobb NP Facility:[facility] Start: 01-26-2024 End: 03-02-2024 Emergency department patient visit GERSON KEEGRIS[facility] Start: 10-15-2023 End: 10-15-[address] [facility] Work Phone: Start: 10-15-2023 End: 10-15-2023 Patient encounter procedure [facility]atory, [facility] Start: 07-14-2023 Documentation procedure Mammog nick Coordinator [facility] Start: 07-14-2023 Letter encounter Mammography Coordinator [facility] Start: 07-13-2023 End: 07-13-2023 ambulatory MARQUES PAUL Facility:[facility] Start: 07-13-2023 End: 07-13-2023 Subsequent hospital visit by physician [facility] Comment on above: Encounter for screen ing mammogram for malignant neoplasm of breast [Z12.31] Start: 04-02-2023 Telephone encounter Marques Paul MD Work Phone: OB/Gynecology Comment on above: Results Start: 03-29-2023 End: 03-30-2023 ambulatory DOMIRICHARD HANDLEY Facility:[facility] Start: 03-29-2023 End: 03-29-2023 Patient encounter procedure Marques Paul MD Work Phone: OB/Gynecology Comment on above: PMB (postmenopausal bleeding) (Primary Dx); Thickened endometrium; Encounter for screening mammogram for malignant neoplasm of breast; Encounter for screening for malignant neoplasm of cervix; Special screening examination for human papillomavirus (HPV) Start: 01-29-2023 Telephone encounter Marques Paul MD Work Phone: OB/Gynecology Comment on above: Results Start: 01-25-2023 End: 01-25-2023 ambulatory MARQUES PAUL Facility:[facility] Start: 01-25-2023 End: 01-25-2023 Subsequent hospital visit by physician Us Counts Include 234 Beds At [facility] Wstr Mob 2 Work Phone: Radiology Comment on above: PMB (postmenopausal bleeding) [N95.0] Start: 01-12-2023 Telephone encounter Marques Paul MD Work Phone: OB/Gynecology Comment on above: Patient Update Start: 01-10-2023 End: 01-10-[address] [facility] Work Phone: Start: 01-10-2023 End: 01-10-2023 Patient encounter procedure [facility]-Laboratory, BIM Start: 11-01-2022 ambulatory Domi Handley DO Comp rehensive Internal Med Start: 11-01-2022 End: 11-02-2022 Annotation/Addendum Domi Tawanda DO Work Phone: [facility] Start: 11-01-2022 Review Domi Dougherty n DO Work Phone: [facility] Start: 10-27-2022 End: 10-27-2022 Phone Encounter Domi Handley DO Work Phone: [facility] Start: 06-19-2022 Registered [facility]-Physical Therapy Start: 06-08-2022 End: 06-25-2022 Discharged [address] [facility]-Nutritional Services Start: 03-15-2021 End: 03-15-2021 Office outpatient visit 25 minutes Domi Handley DO Work Phone: [facility] Start: 03-11-2021 End: 03-11-2021 Office outpatient visit 10 minutes Domi Handley [facility] Start: 03-01-2021 Review Domi Handley Compreh ensive Internal Medicine Start: 03-01-2021 End: 03-01-2021 Office outpatient visit 25 minutes Domi Handley [facility] Start: 04-20-2020 End: 04-20-2020 Office outpatient visit 15 minutes Domi Handley [facility] Start: 06-06-2018 End: 06-07-2018 Office outpatient visit 15 minutes Domi Handley [facility] Start: 05-21-2018 End: 05-21-2018 Office outpatient visit 15 minutes Domi Handley [facility] Start: 04-13-2017 End: 04-13-2017 Office outpatient visit 25 minutes Domi [facility] Start: 03-28-2017 End: 03-28-2017 Phone Encounter Domi Chandler In Home [facility] Start: 03-27-2017 End: 03-27-2017 Office outpatient visit 15 minutes Domi Handley [facility] Start: 12-28-2016 End: 12-28-2016 Office outpatient visit 10 minutes Domi Handley [facility] Internal Medicine Start: 10-26-2016 End: 10-26-2016 Office outpatient visit 10 minutes Domi Chandler [facility] Start: 10-05-2016 End: 10-05-2016 Office outpatient visit 25 minutes Domi Chandler Internal [facility] Start: 09-05-2016 End: 09-05-2016 Office outpatient visit 40 minutes Domi Handley [facility] Internal Medicine Start: 04-05-2016 End: 04-05-2016 Office outpatient visit 25 minutes Domi Handley [facility] Internal Medicine Start: 01-19-2016 End: 01-19-2016 Office outpatient visit 25 minutes Domi Handley [facility] Internal Medicine Start: 12-06-2015 End: 12-06-2015 Office outpatient visit 15 minutes Domi Handley [facility] Internal Medicine Start: 11-29-2015 End: 11-29-2015 Office outpatient visit 25 minutes Domi Handley [facility] Internal [facility] Start: 11-22-2015 End: 11-22-2015 Postop follow up visit related to original px Domi Chandler Internal [facility] Start: 11-04-2015 End: 11-04-2015 Office outpatient visit 15 minutes Domi Handley [facility] Internal [facility] Start: 10-26-2015 End: 10-26-2015 Refill Request Domi [facility] Start: 10-20-2015 End: 10-20-2015 Office outpatient visit 25 minutes Domi Handley [facility] Internal [facility] Start: 08-25-2015 End: 08-25-2015 Patient encounter procedure Domi Chandler [facility] Start: 01-28-2015 End: 01-28-2015 Office outpatient visit 15 minutes Domi Handley [facility] Internal Medicine Start: 03-06-2014 End: 03-06-2014 Office outpatient visit 25 minutes Domi Handley [facility] Internal Medicine Start: 01-09-2014 End: 01-09-2014 Patient encounter procedure Domi Handley [facility] Internal Medicine Start: 12-03-2013 End: 12-03-2013 Patient encounter procedure Domi Chandler [facility] Start: 04-30-2013 End: 04-30-2013 Office outpatient visit 15 minutes Domi Handley [facility] Internal Medicine Start: 04-02-2013 End: 04-02-2013 Office outpatient visit 25 minutes Domi Tawanda [facility] Internal Medicine Start: 06-06-2012 End: 06-10-2012 Patient encounter procedure Domi Handley [facility] Internal Medicine Start: 05-24-2012 End: 05-24-2012 Patient encounter procedure Domi Handley [facility] Internal Medicine Start: 04-25-2012 End: 04-25-2012 Patient encounter procedure Domi Handley [facility] Internal Medicine Start: 04-15-2012 End: 04-15-2012 Lab Order Domierick Handley [facility] In Home [facility] Start: 04-12-2012 End: 04-12-2012 Office outpatient visit 25 minutes Domi Handley [facility] Internal Medicine Start: 02-05-2012 End: 02-05-2012 Office outpatient visit 15 minutes Domi Handley [facility] Internal Medicine Start: 01-17-2012 End: 01-17-2012 Office outpatient visit 25 minutes Domi Handley [facility] Internal Medicine Start: 11-08-2011 End: 11-08-2011 Medical examinations/reports status Domi Handley DO Work Phone: [facility] Internal Medicine Start: 11-08-2011 End: 11-08-2011 Patient encounter procedure Domi Handley [facility] Internal Medicine Start: 11-08-2011 End: 11-08-2011 Phone Encounter Domi Handley [facility] In [facility] Start: 10-27-2011 End: 10-27-2011 Patient encounter procedure Domi Handley [facility] Internal Medicine Start: 03-21-2011 End: 03-21-2011 Annotation/Addendum Domi Handley [facility] Start: 03-20-2011 End: 03-20-2011 Patient encounter procedure Domi Handley [facility] Internal Medicine Start: 11-14-2010 End: 11-14-2010 Patient encounter procedure Domi Handley [facility] Internal Medicine Start: 11-03-2010 End: 11-03-2010 Patient encounter procedure Domi Handley [facility] Internal Medicine Start: 10-28-2010 End: 10-28-2010 Patient encounter procedure Domi Handley [facility] Internal Medicine Start: 06-27-2007 End: 06-27-2007 Office outpatient visit 15 minutes Domierick Bolanoson [facility] Internal Medicine Start: 02-11-2007 End: 02-12-2007 Patient encounter procedure Domierick Handley [facility] Internal Medicine Start: 02-06-2007 End: 02-06-2007 Historical Summary Domi Handley [facility] Start: 10-03-2006 End: 10-03-2006 Office outpatient visit 25 minutes Domi Handley [facility] Medical examinations/reports status Huber De Los Santos MARCUS [facility]; [facility] Work Phone: Procedures Date Procedure Procedure Detail Performing Clinician Start: 09-10-2025 Procedure Mary SOLORIO Comment on above: Test Ordered: 999103 Magnesium, RBCTest( s) 321074-Svhtonkbr, RBCwas developed and its performance characteristicsdetermined by [employer]. It has not been cleared or approvedby the Food and Drug Administration.Magnesium, RBC 5.1 mg/dL Reference Range: 3.7-7.0Performed at: [address] [id number] Director: Juan Pablo Grady MD, Phone: [phone] at: [address] [id number] Director: Randy Nova PhD, Phone: [phone] Test Ordered: [id number] Amino Acid Profile, Qn, PlasmaTest(s) 377041-Qaqwccm; 157038-Ztvywzqhl; 999168-Uhxnxvisjnfqov; 242174-Wcmkekdde; 330245-Obqmbw; 016109-Mdoqskgpps; 386843-Ywklwurjb; 805239-Mfctkjfeg; 640427-Zfhycbxux; 837323-Dsrbt-ouqtvpxgndar; 688816-Hurmesi;489593-Pjabwwj; 765664-Gbklsmt; 921448-Tnzupijsjq; 329734-Vmjty-odpiyfwztcsxz; 802491-Piwdbw; 106102-Srhdggi; 773496-Vtohhgkhuo; 276707-Gpksyatebyizqk; 601156-Yyjnhcosohoqz;731931-Esrmrmcjtzuikf; 143678-Vtidmzfmrb; 507197-Ipedwsv;965059-Obcmzber; 609625-Skjyjvznnrwwa; 107913-Bxuviwzncoczwboet; 273172-Ykkp-lrrxckw; 811593-Appl-yqzztoazsqjuolsu; 847905-Hpxlfikzzfc; 953853-Gabdm-nqteuoaahilzq; 763160-Yxrcoepwzn; 294644-Wsncsjenbpfzq; 637476-Uowohtxrm; 255228-Vujhqz; 502761-Aztjoskcm; 024588-Hxtbvjhyaai developed and its performance characteristicsdetermined by [employer]. It has not been cleared or approvedby the Food and Drug Administration.Taurine 71.1 umol/L BN Reference Range: 29.2-132.3Aspartate 1.4 umol/L BN Reference Range: 0.0-7.4Hydroxyproline 20.0 umol/L BN Reference Range: 4.7-35.2Threonine 151.8 umol/L BN Reference Range: 67.8-211.6Serine 82.2 umol/L BN Reference Range: 48.7-145.2Asparagine 41.5 umol/L BN Reference Range: 29.5-84.5Glutamate 35.7 umol/L BN Reference Range: 18.1-155.9Glutamine 433.7 umol/L BN Reference Range: 372.8-701.4Sarcosine <0.5 umol/L BN Reference Range: 0.0-4.0Alpha-aminoadipate 1.0 umol/L BN Reference Range: 0.0-1.9Proline 92.2 umol/L BN Reference Range: 84.8-352.5Glycine 240.4 umol/L BN Reference Range: 144.0-411.0Alanine 267.0 umol/L BN Reference Range: 209.2-515.5Citrulline 22.7 umol/L BN Reference Range: 15.6-46.9Alpha-aminobutyrate 17.3 umol/L BN Reference Range: 5.4-34.5Valine 172.8 umol/L BN Reference Range: 133.0-317.1Cystine 33.0 umol/L BN Reference Range: 15.8-47.3Methionine 15.1 umol/L BN Reference Range: 14.7-35.2Homocitrulline <0.5 umol/L BN Reference Range: 0.0-1.7Cystathionine <0.5 umol/L BN Reference Range: 0.0-0.7Alloisoleucine 0.7 umol/L BN Reference Range: 0.0-3.2Isoleucine 34.2 umol/L BN Reference Range: 32.8-88.3Leucine 86.7 umol/L BN Reference Range: 66.7-165.7Tyrosine 51.7 umol/L Reference Range: 27.8-83.3Phenylalanine 53.2 umol/L Reference Range: 35.8-76.9Argininosuccinate <0.1 umol/L Reference Range: 0.0-3.0Beta-alanine 2.9 umol/L Reference Range: 1.1-9.0Beta-aminoisobutyrate 2.2 umol/L BN Reference Range: 0.0-4.3Homocystine <0.3 umol/L Reference Range: 0.0-0.2Gamma-aminobutyrate <0.5 umol/L Reference Range: 0.0-0.6Tryptophan 38.5 umol/L Reference Range: 23.5-93.0Hydroxylysine 0.2 umol/L Reference Range: 0.1-0.8Ornithine 64.2 umol/L Reference Range: 30.1-101.3Lysine 168.1 umol/L Reference Range: 94.0-278.0Histidine 42.5 [L ] umol/L Reference Range: 47.2-98.5Arginine 51.6 umol/L Reference Range: 36.3-119.2Interpretation Comment TG Reference Range: .No evidence of aminoacidopathy by quantitative plasma aminoacid analysis.Director Review Comment TG Reference Range: .Glenda Abrams, PhDDirector, Biochemical GeneticsTo discuss these results or other testing for inborn errorsof metabolism, please contact our Biochemical Geneticistsat [phone] [id number]), [employer] Customer Service,[place], [place].Methodology Comment Reference Range: .Amino acid concentrations were obtained by LC-MS/MSanalysis.Performed at: [address] [id number] Director: Juan Pablo Grady MD, Phone: [phone] at: [facility] [id number] [place], [place] [id number] Director: Regina Montana [facility], Phone: [phone] at: [facility] [place], [place] [id number] Director: Randy Nova PhD, Phone: [phone] Start: 05-18-2025 Procedure Mary SOLORIO Comment on above: Test Ordered: 322773 Amino Acid Profile, Qn, PlasmaTest(s) 864006-Laiesqb; 586603-Pesfvsawz; 786240-Uljgrzwhkuxsdu; 008951-Hvqcgjmnw; 099873-Ctyfxz; 015859-Ptzffmcvph; 427900-Shbmxmomk; 599335-Bacxkmxjl; 710692-Qmsbdkknm; 900427-Xevdn-bgfgabcrrxeq; 236721-Ntcvfus;612824-Zthvsdi; 898717-Qzfbzkn; 453942-Jgwzqlgswy; 160997-Butsm-ktignrniqsrvd; 617295-Pllfwf; 385030-Oahvsen; 264833-Gnfmvyboyv; 361814-Jahtxvszwudtzp; 556542-Lbnmbuecbakvo;375476-Rdpkvdevyphxjj; 195649-Pvrsnidqdd; 227012-Obukkjk;848011-Glkhrbhg; 607666-Soatcmsfqktoy; 339663-Rluvzuczjvxexikwx; 449289-Mxij-onlpirt; 069746-Gmpw-qkhljqiveeenakcg; 741707-Pnwkjjezlhf; 227294-Zvjmx-ejstxbtlprmby; 853039-Cwecmcxqnp; 839370-Hwdtjrbqcnpiq; 267257-Pulzmzrkn; 653645-Xynuoc; 071915-Yungbhfiw; 685762-Dduslfxwjyd developed and its performance characteristicsdetermined by [employer]. It has not been cleared or approvedby the Food and Drug Administration.Taurine 570.2 [H ] umol/L Reference Range: 29.2-132.3Aspartate 13.0 [H ] umol/L Reference Range: 0.0-7.4Hydroxyproline 11.1 umol/L Reference Range: 4.7-35.2Threonine 118.4 umol/L Reference Range: 67.8-211.6Serine 139.3 umol/L BN Reference Range: 48.7-145.2Asparagine 55.4 umol/L Reference Range: 29.5-84.5Glutamate 170.7 [H ] umol/L Reference Range: 18.1-155.9Glutamine 417.6 umol/L Reference Range: 372.8-701.4Sarcosine 1.0 umol/L Reference Range: 0.0-4.0Alpha-aminoadipate 0.9 umol/L Reference Range: 0.0-1.9Proline 104.1 umol/L Reference Range: 84.8-352.5Glycine 263.3 umol/L Reference Range: 144.0-411.0Alanine 294.9 umol/L Reference Range: 209.2-515.5Citrulline 20.7 umol/L Reference Range: 15.6-46.9Alpha-aminobutyrate 23.0 umol/L Reference Range: 5.4-34.5Valine 226.0 umol/L Reference Range: 133.0-317.1Cystine 56.1 [H ] umol/L Reference Range: 15.8-47.3Methionine 26.9 umol/L Reference Range: 14.7-35.2Homocitrulline 0.7 umol/L Reference Range: 0.0-1.7Cystathionine <0.5 umol/L Reference Range: 0.0-0.7Alloisoleucine 1.2 umol/L Reference Range: 0.0-3.2Isoleucine 60.8 umol/L Reference Range: 32.8-88.3Leucine 131.4 umol/L Reference Range: 66.7-165.7Tyrosine 49.3 umol/L Reference Range: 27.8-83.3Phenylalanine 77.2 [H ] umol/L Reference Range: 35.8-76.9Argininosuccinate <0.1 umol/L Reference Range: 0.0-3.0Beta-alanine 18.7 [H ] umol/L Reference Range: 1.1-9.0Beta-aminoisobutyrate 5.2 [H ] umol/L Reference Range: 0.0-4.3Homocystine <0.3 umol/L Reference Range: 0.0-0.2Gamma-aminobutyrate <0.5 umol/L Reference Range: 0.0-0.6Tryptophan 47.3 umol/L BN Reference Range: 23.5-93.0Hydroxylysine 0.2 umol/L BN Reference Range: 0.1-0.8Ornithine 81.0 umol/L BN Reference Range: 30.1-101.3Lysine 188.4 umol/L BN Reference Range: 94.0-278.0Histidine 33.1 [L ] umol/L Reference Range: 47.2-98.5Arginine 52.7 umol/L Reference Range: 36.3-119.2Interpretation Comment TG Reference Range: .Plasma amino acid analysis reveals variations from thenormal reference range for several amino acids. Thepattern is not suggestive of a specific aminoacidopathy.This pattern may be due to differences in normalmetabolism, patient diet, or treatment.Director Review Comment Reference Range: .Technical Component [facility] Component interpretation performed by:Laura Bonilla, PhD, FACMGDirector, Biochemical GeneticsHar[facility] Hospital RTPLCTG, [address] [facility] [address]St discuss these results or other testing for inborn errorsof metabolism, please contact our Biochemical Geneticistsat [phone] [facility]([id number]), [facility] [employer] Customer Service,[place], [place].Methodology Comment Reference Range: .Amino acid concentrations were obtained by LC-MS/MSanalysis.Performed at: [address] [id number] Director: Juan Pablo Grady MD, Phone: [phone] at: [facility] [id number] [place], [place] [id number] Director: Regina Montana [facility], Phone: [phone] at: [address] [id number] Director: Randy Nova PhD, Phone: [phone] Start: 04-06-2025 CT angiography of chest with contrast Mary Cobb CORE JAVA ENGINEER-C Start: 04-06-2025 Estimated creatinine clearance Mary roger CORE JAVA ENGINEER-C Start: 04-06-2025 X-ray of chest, PA and lateral views Mary Cobb CORE JAVA ENGINEER-C Start: 04-06-2025 D-dimer assay, quantitative Mary smith CORE JAVA ENGINEER-C Comment on above: D-Dimer ELEVATED (>0.49): Additional phil dies and clinicalassessments are indicated to conclude diagnosis of:Deep Vein Thrombosis (DVT) or Pulmonary Embolism (PE) Start: 07-13-2023 End: 07-13-2023 Mammography Marques Paul MD Work Phone: Start: 01-25-2023 Us pelvic nonobstetric image dcmtn limited/f/u Marques Paul MD Work Phone: Start: 03-01-2021 End: 03-07-2021 Abdomen/Pelvis WITH Contrast Comments: See Note; NOTES: [facility] Imaging Services [address] [place] [address] Abdomen/Pelvis WITH Contrast MR#: [id number] Acct: [id number] Name: VICKIE BARLOW Rep #: [id number] : 1965 F 55 From: Jose J Longoria MD PCP: Domi Handley DO Status: REG CLI Study: Abdomen/Pelvis WITH Contrast Date of Exam: 05/16 Exam# [id number] Ordering Dr: Arleth Peralta NP CORE JAVA ENGINEER-C STUDY: CT ABDOMEN AND PELVIS WITH CONTRAST REASON FOR EXAM: Female, 55 years old. ABD PAIN -- ABD PAIN,ACUTE,NONLOCALIZED RADIATION DOSAGE (If Supplied By Facility): CTDIvol = ( 15.35 ) mGy, DLP = ( 1135.81 ) mGycm TECHNIQUE: Transaxial images were obtained from the dome of the diaphragm to the symphysis pubis without oral contrast. Oral and amp; IV Readi-CAT and amp; 100mL Isovue-300 was administered. Sagittal and coronal images were reconstructed. Individualized dose optimization techniques were used for this CT. COMPARISON: 2016 FINDINGS: The visualized lung bases are unremarkable. The visualized portions of the heart are within normal limits. Normal liver. Normal gallbladder and extrahepatic biliary system. Normal spleen. Normal pancreas. Normal bilateral adrenal glands. Normal right kidney. Normal left kidney. Normal visualized stomach. Normal small intestine. Scattered sigmoid diverticulosis without CT evidence of acute diverticulitis. The appendix is visualized and appears normal. Appendix best seen on coronal reconstructed images 46 through 55 There is diffuse atherosclerotic calcification of the abdominal aorta, without a demonstrated aneurysm. Normal inferior vena cava. Normal retroperitoneum. Normal urinary bladder. Uterus is present, the endometrium cannot be accurately evaluated with CT. There is a small umbilical hernia containing fat. There are diffuse degenerative changes of the visualized lumbar spine, and pelvis. There is a stable grade 1-2 spondylolisthesis of L5 on S1 CT/Abdomen/Pelvis WITH Contrast IMPRESSION: No suspicious solid organ abnormality Diverticulosis No free intraperitoneal fluid, air, or suspicious adenopathy Electronically Signed: Jerry Longoria MD at 13:21 EDT , Service support , CC: LYNDSEY Peralta; Domi Handley DO Golf Ball Cover Treater: Signed Arleth Peralta Work Phone: Start: 06-20-2018 End: 06-20-2018 Orthopedic Visit Report Comments: See Note; NOTES: [facility] Orthopaedics AND Sports Medicine [address] [place] [address] OFFICE VISIT Date of Service: 06/20/18 MR#: [id number] Acct: [id number] Name: MARILIN BARLOW Rep #: [id number] : 1965 Provider: Rubi Ocampo DO Age/Sex: 53/F [place] [facility] Status: Signed Intake Intake Visit Reasons: LEFT KNEE Is patient in pain?: Yes Pain scale (1-10): 2 Allergies celecoxib [From Celebrex] Allergy (Verified 06/20/18 09:43) Shortness of breath levofloxacin [From Levaquin] Adverse Reaction (Verified 06/20/18 09:43) Pain in joints Medications Sertraline HCl [Zoloft] 50 mg PO DAILY 10/31/16 [History Confirmed 03/16/18] [facility] Social History Smoking Status: Never smoker HPI LEFT KNEE: Details: MARILIN BARLOW is a 53 year old F here today for a followup after her left knee MRI. She states that she continues to have knee pain but her knee has decreased in pain since she had a massage yesterday. Patient has increased pain with ambulating stairs. Patient is falling frequently and she has a referral to a neurologist from her PCP. Her MRI is here for review. ROS Const Reports system reviewed and no additional complaints, except as docu Eyes Reports system reviewed and no additional complaints, except as docu ENT Reports system reviewed and no additional complaints, except as docu Card Reports system reviewed and no additional complaints, except as docu Resp Reports system reviewed and no additional complaints, except as docu GI Reports system reviewed and no additional complaints, except as docu Reports system reviewed and no additional complaints, except as docu Musc Reports joint pain, Reports joint swelling Skin/Breast Reports system reviewed and no additional complaints, except as docu Neuro Yes system reviewed and no additional complaints, except as docu Psych Reports system reviewed and no additional complaints, except as docu Endo Reports system reviewed and no additional complaints, except as docu Ortho Exam Left Knee Contralateral Normal: Yes Swelling: No Homans Sign: No Knee ROM: Yes ROM-Flexion 0-140 Examination: Yes Lat jt line tenderness, Yes Yadira's Test, Yes Crepitus Assessment AND Plan Plan Patient states she would like to do relive which is holistic homeopathic treatment for her tear. Discussed risks benefits and alternatives to surgery. Patient this point is not interested in any surgical intervention she would like to try the relive and if that does not work a steroid injection. Encouraged her to do physical therapy at home exercise program to strengthen her leg she is still obese is putting a lot of pressure through her knees. She is not a candidate for a brace as in the past she has had a brace and developed a blood clot from this. States no pain in her calf no issues she is tender along her lateral joint line. Patient is aware of all possible treatment options and states she will continue with what she is aforementioned. All questions answered patient agreement of plan. Coding Level of Care Code Off vis,est,level 4 06/20/18 1400 <Electronically signed by Rubi Ocampo DO> Date Rubi Ocampo DO Cosigner Signature: Date (if applicable) CC: Domi Handley Start: 06-17-2018 End: 06-17-2018 Lower Ext Joint Only (Routine) Comments: See Note; NOTES: [facility] Imaging Services [address] [place] [address] Lower Ext Joint Only (Routine) MR#: [id number] Acct: [id number] Name: MARILIN BARLOW Rep #: [id number] : 1965 F 53 From: Dg Root MD PCP: Domi Handley DO Status: REG CLI Study: Lower Ext Joint Only (Routine) Date of Exam: 06/17/18 Exam# [id number] Ordering Dr: Rubi Ocampo DO STUDY: MRI LEFT KNEE REASON FOR EXAM: Left knee and leg pain for 2 months, also locking and clicking. TECHNIQUE: Standardized fat and water weighted pulse sequences were obtained in all 3 orthogonal planes. COMPARISON: Radiographs 05/21/2018. FINDINGS: Normal medial meniscus. Normal hyaline cartilage of the medial femorotibial compartment. There are small marginal osteophytes of the medial femorotibial compartment. Normal medial femoral condyle and tibial plateau. There is mild periligamentous inflammation of the medial collateral ligament (T2 coronal image 15). Normal distal semimembranosus, gracilis and semitendinosus tendons. There is a complex of the anterior horn and anterior body of the lateral meniscus (proton-density sagittal images 29-34; proton density coronal images 15, 16) and a small horizontal tear of the free margin of the posterior horn of the lateral meniscus (proton-density sagittal images 33, 34). There is peripheral subluxation of the lateral meniscus. There is arthrosis of the lateral femorotibial compartment with chondral loss (T2 sagittal image 18. There is very mild subchondral bone edema of the lateral tibial plateau (T2 coronal image 14), a stress phenomenon. Normal proximal tibiofibular articulation. Normal lateral collateral (fibular) ligament. Normal popliteus tendon. Normal biceps femoris tendon. Normal anterior cruciate ligament (ACL). Normal posterior cruciate ligament (PCL). Normal congruent patellofemoral articulation. There is arthrosis of the patellofemoral compartment with chondral thinning (T2 sagittal image 16). Normal medial and lateral patellar retinaculum. Normal quadriceps tendon. Normal patellar tendon. Normal Hoffa's fat pad. There is a iindm-od-xykigtmo sized joint effusion. There is a popliteal cyst measuring 8.2 cm in length with mild extravasation of fluid (T2 sagittal images 4-10). There are superficial venous varicosities at the anterior aspect of the knee. The otherwise visualized osseous structures are unremarkable. MRI/Lower Ext Joint Only (Routine) IMPRESSION: Lateral meniscal tear. Arthrosis of the lateral femorotibial and patellofemoral compartments. Very mild subchondral bone edema of the lateral tibial plateau, a stress phenomenon. Mild periligamentous inflammation of the medial collateral ligament. Joint effusion. Popliteal cyst with mild extravasation of fluid. Electronically Signed: Dg Root MD at 15:24 EDT Tel , Service support , CC: Rubi Ocampo DO; Domi Handley DO Golf Ball Cover Treater: Signed Domi Handley Start: 06-13-2018 End: 06-13-2018 Orthopedic Visit Report Comments: See Note; NOTES: [facility] Orthopaedics AND Sports Medicine [address] [place] [address] OFFICE VISIT Date of Service: 06/06/18 MR#: [id number] Acct: [id number] Name: MARILIN BARLOW Rep #: [id number] : 1965 Provider: Rubi Ocampo DO Age/Sex: 53/F [place] [facility] [place] Status: Signed Intake Intake Visit Reasons: LEFT KNEE Allergies celecoxib [From Celebrex] Allergy (Verified 03/16/18 10:34) Shortness of breath levofloxacin [From Levaquin] Adverse Reaction (Verified 03/16/18 10:34) Pain in joints Medications Sertraline HCl [Zoloft] 50 mg PO DAILY 10/31/16 [History Confirmed 03/16/18] PFSH Social History Smoking Status: Never smoker HPI LEFT KNEE: Details: MARILIN BARLOW is a 53 year old F here today for increased left knee pain after a recent fall. She has been falling more often and complaining of pain, heaviness and weakness in both lower extremities but she is set to be seeing somebody for those concerns. She just saw Dr Handley who referred her to a vascular doctor. Her knee pain today is lateral and constant. She is experiencing some instability but unsure if that is from the weakness or joint problem, however she does have locking and clicking that is worsening. She also had issues with her depth perception from an eye problem. Ortho Exam Left Knee Homans Sign: No Knee ROM: Yes ROM-Extension -20 to 0, Yes ROM-Flexion 0-140 Examination: Yes Yadira's Test, Yes Lat jt line tenderness, Yes med jt line tenderness (minor ), No Crepitus, Yes Pain with flexion, No TTP inf pole patella Quad Atrophy: No Stability: NML: Anterior Drawer, 1+: Varus 30 Apprehension with Lateral Translation: No Patella Grind: No Assessment AND Plan Problems 1. Acute pain of left knee M25.562 2. Tear of lateral meniscus of left knee, current, unspecified tear type, initial encounter S83.282A Plan - TAI Anderson Patient has an injury with a twisting mechanism and now has symptoms and signs on PE that point to meniscus injury. She has some pains and minor laxity of the LCL as well. We discussed some treatment options today and she would like to proceed with diagnostic imaging to help better determine her options for treatment. She has done some exercises at the same time we are going to give her a program for strengthening of the surrounding muscles. She does not like taking NSAIDS and prefers more natural anti-inflammatories and thus can take those PRN. she will f/u after her MRI to go over those results and discuss Orders Orders: Plan Detail Follow Up after MRI Coding Level of Care Code Off vis,est,level 3 Diagnoses Acute pain of left knee M25.562 Chronicity: acute Tear of lateral meniscus of left knee, current, unspecified tear type, initial encounter S83.282A Encounter type: initial encounter Meniscus of knee: lateral Meniscus tear of knee type: unspecified type Tear current or old: current 06/13/18 9147 <Electronically signed by Rubi Ocampo DO> Date Rubi Ocampo DO 06/07/18 1109<Electronically signed by Gerson LUJAN> Cosigner Signature: Date (if applicable) Gerson Delarosa CC: Domi Handley Start: 05-21-2018 End: 05-21-2018 Venous Duplex Lower Extremity Comments: See Note; NOTES: [facility] Cardiovascular Services [address] [place] [address] Venous Duplex US, Unilateral 05/21/18 1445 MR#: [id number] Acct: [id number] Name: MARILIN BARLOW Rep #: [id number] : 1965 52 From: Colyb Trevino MD Attending Dr: Zahra Renner NP-C Status: REG CLI Ordering Dr: Zahra RennerC Date: 05/21/18 Location: [facility] Sex: F C Admitted: Reason For Study: LEG PAIN RIGHT LEFT CFV is compressible, spontaneous, phasic, GSV is normal. competent and demonstrates normal CFV is compressible, spontaneous, phasic, augmentation. competent, and demonstrates normal Procedure augmentation. Exam performed in department. FV is compressible, spontaneous, phasic, A preliminary report was called and/or faxed competent and demonstrates normal to León Renner. augmentation. POP V is compressible, spontaneous, phasic, competent and demonstrates normal augmentation. T/P Trunk is compressible. PTV is compressible. LT PerV is compressible. Hypoechoic structure noted lt medial pop space measuring 3.3 x 2.2 cm in transverse view. Non-vascular. Interpretation Summary Deep veins of the left lower extremity are patent and compressible segmentally. There is no evidence of left lower extremity deep vein thrombosis. Valvular competence appears intact within the proximal deep venous system on the left . The left greater saphenous vein appears patent and compressible segmentally. A non-vascular, hypoechoic structure is noted in the left medial popliteal space, measuring 3.3 cm x 2.2 cm in transverse dimension. This probably represents a popliteal cyst. Clinical correlation is advised. Ordering Physician: LYNDSEY Napoles Referring Physician: Domi Handley M.D. Performed By: Missy Momin RVT 05/21/18 1536 Date Colby Trevino MD CC: LYNDSEY Renner; Domi Handley DO Date Dictated: 05/21/18 1445 Date Transcribed: 05/21/18 153 Golf Ball Cover Treater: Signed Domi Handley Start: 05-21-2018 End: 05-22-2018 Knee 4 or More Views Comments: See Note; NOTES: [facility] Imaging Services [address] [place], [place] [address] [address] Knee 4 or More Views MR#: [id number] Acct: [id number] Name: MARILIN BARLOW Rep #: [id number] : 1965 F 52 From: Josh Guan DO PCP: Domi Handley DO Status: REG CLI Study: Knee 4 or More Views Date of Exam: 05/21/18 Exam# [id number] Ordering Dr: Zahra Renner STUDY: X-RAY - LEFT KNEE REASON FOR EXAM: Female, 52 years old. Knee pain TECHNIQUE: 4 view(s) of the knee. COMPARISON: None. FINDINGS: Normal visualized distal femur. Normal visualized proximal tibia and fibula. Normal proximal tibiofibular articulation. There is no demonstrated fracture. Normal medial femorotibial compartment. There is mild degenerative arthrosis of the lateral femorotibial compartment. Normal patellofemoral articulation. There is no demonstrated joint effusion. The soft tissue structures are unremarkable. RAD/Knee 4 or More Views IMPRESSION: Mild degenerative changes. No acute bony abnormality. Electronically Signed: Josh Guan DO at 14:08 EDT Tel , Service support , CC: LYNDSEY Renner; Domi Handley DO Golf Ball Cover Treater: Signed Zahra Renner Start: 05-21-2018 End: 05-22-2018 L/S Spine Min 4 Views Comments: See Note; NOTES: [facility] Imaging Services [address] [place] [address] L/S Spine Min 4 Views MR#: [id number] Acct: [id number] Name: MARILIN BARLOW Rep #: [id number] : 1965 F 52 From: Josh Guan DO PCP: Domi Handley DO Status: REG CLI Study: L/S Spine Min 4 Views Date of Exam: 05/21/18 Exam# [id number] Ordering Dr: Zahra eRnner STUDY: X-RAY - LUMBAR SPINE REASON FOR EXAM: Female, 52 years old. Low back pain TECHNIQUE: 5 view(s) of the lumbar spine were obtained. COMPARISON: None FINDINGS: Normal lumbar lordosis. There is no substantial scoliosis. There is mild anterolisthesis of L5 on S1. There is multilevel endplate spondylosis of the lumbar vertebrae. There is multi-level degenerative disc disease with multi-level disc space narrowing. There is atherosclerotic calcification of the abdominal aorta without a demonstrated aneurysm. RAD/L/S Spine Min 4 Views IMPRESSION: Grade 1 spondylolisthesis at L5-S1. Degenerative changes, without acute fracture. Electronically Signed: Josh Guan DO at 14:06 EDT Tel , Service support , CC: LYNDSEY Renner; Domi Handley DO Golf Ball Cover Treater: Signed Zahra Renner Start: 03-16-2018 End: 03-16-2018 Emergency Department Summary Comments: See Note; NOTES: [facility] Medical Records Department [address] [place] [address] Emergency Department Summary 03/16/18 1055 MR#: [id number] Acct: [id number] Name: MARILIN BARLOW Rep #: [id number] : 1965 52 From: Winston Roper MD PCP: Domi Handley DO Status: DEP ER - ER Visit Summary Date of Service: 03/16/18 Chief Complaint: Left foot injury History of Present Illness: The patient is a 52 F with a history of neuropathy who presents to the emergency department with left foot injury. The patient was in her normal state of health. She states she was waking up and trying to go to the bathroom. She states that she accidentally kicked a tiled stair. She had immediate pain in her left fourth toe. She states she has had some difficulty walking because of pain. She did not fall, she did not strike her head. She denies any other injury. Physical Examination: Vital signs reviewed General: Well-nourished, well-developed Head: Normocephalic, atraumatic Eyes: Pupils equal and reactive, extraocular muscles intact Neck, supple, no lymphadenopathy Heart: Regular rate and rhythm Respiratory: No distress, clear bilaterally Abdomen: Soft, nontender, nondistended, no peritoneal signs Back: Nontender Extremities: Mild tenderness at the distal fourth phalanges of the left foot, normal pulses, skin intact, no edema, no cords Skin: Normal color no rash Neuro: Alert and oriented, no focal or lateralizing deficits Test Results: [] Emergency Department Course and Treatment: The patient has normal pulses and skin is intact. I did obtain plain films. There is evidence of minimally displaced fracture of the proximal fourth phalanx. The patient was placed in a postoperative shoe. She declined analgesics. She will be given podiatry follow-up as an outpatient. She will return with any worsening symptoms. Treatment Plan: [] Disposition: Discharge Impression: 1. Closed fourth left phalangeal fracture This note was generated with [employer] dictation software. It may contain incorrect words, spelling, and punctuation that were not noted in review of the chart prior to signing ED Disposition - Plan for ED Patient: Chief Complaint: Lower Extremity Injury Instructions: ED Fx Toe Closed Referrals: Mansoor Benitez DPM [STAFF PHYSICIAN] - What to do if you have Problems For any increased pain, shortness of breath, bleeding, nausea or vomiting, chest pain, or any unexpected problems, contact your Primary Care Provider. Call [facility] ([phone]) or report to the closest Emergency Room. Call 911 if necessary. 03/16/18 1239 <Electronically signed by Winston Roper MD> Date Winston Roper MD Cosigner Signature (If Indicated): Date CC: Domi Colmenares Start: 03-16-2018 End: 03-16-2018 Foot min 3 Views Comments: See Note; NOTES: [facility] Imaging Services [address] [place] [address] Foot min 3 Views MR#: [id number] Acct: [id number] Name: MARILIN BARLOW Shay Rep #: [id number] : 1965 F 52 From: Doug Seals MD PCP: Domi Handley DO Status: REG ER Study: Foot min 3 Views Date of Exam: 03/16/18 Exam# [id number] Ordering Dr: Winston Roper MD STUDY: X-RAY - LEFT FOOT CLINICAL: Female, 52 years old. Fourth toe dislocation TECHNIQUE: 3 view(s) of the foot. COMPARISON: None. FINDINGS: There is fracture at the fourth proximal phalanx at the midshaft. The joint spaces are well-maintained. Plantar calcaneal enthesophyte. Os trigonum. No osseous destruction. RAD/Foot min 3 Views IMPRESSION: Fracture fourth proximal phalanx Electronically Signed: Doug Seals MD at 11:13 EDT Tel , Service support , CC: Domi Handley DO; Winston Roper MD Golf Ball Cover Treater: Signed Domi Handley Start: 04-23-2017 End: 04-23-2017 Emergency Department Summary Comments: See Note; NOTES: [facility] Medical Records Department [address] [place] [address] Emergency Department Summary MR#: [id number] Acct: [id number] Name: KD BARLOWJANICE Day Rep #: [id number] : 1965 51 From: Leighton Mckenna MD PCP: Domi Handley DO Status: [facility] DATE OF SERVICE: 04/22/2017 HISTORY OF PRESENT ILLNESS: A 51-year-old heavyset woman who presents with chief complaint of left-sided abdominal pain. She states when she had a similar episode she was diagnosed with diverticulitis. She has a known right renal calculus. She also reports history of degenerative disk disease. She denies any fever, chills or night sweats. She denies weight gain or weight loss. She denies any visual, ocular or auditory symptoms. She denies any cardiac or respiratory symptoms. She denies dysuria, frequency, urgency or hematuria. She denies any back pain. She denies any skin lesions. She has no other complaints. PAST MEDICAL HISTORY: Renal calculus, diverticulosis and diverticulitis, anxiety and degenerative disk disease. PAST SURGICAL HISTORY: and colonoscopy. PRIMARY CARE PHYSICIAN: Dr. Handley. RED HAT LINUX ADMINISTRATOR: Dr. Agarwal. PHYSICAL EXAMINATION: VITAL SIGNS: Remarkable for blood pressure 156/82. Her BMI is 43.9. HEENT: Unremarkable. NECK: Trachea midline. LUNGS: Clear to auscultation. HEART: Regular, without murmur, gallop, rub. ABDOMEN: Remarkable for tenderness on the left side. Question of guarding, no percussion tenderness. There is no CVA tenderness noted. There is no evidence of umbilical or inguinal hernia. SKIN: There is no dermatologic lesions noted and specifically lesions to suggest herpes varicella zoster. There is no evidence of trauma. NEUROLOGIC: Nonfocal. EMERGENCY DEPARTMENT COURSE: CBC, BMP, UA was obtained. CBC and BMP are unremarkable. Urine is positive for microscopic hematuria. CT was obtained, which reveals evidence of diverticulosis with no evidence of renal, hepatic or splenic problems. There is no evidence of inflammatory changes either. The patient was medicated with improvement. IMPRESSION: 1. Abdominal pain, unknown etiology. 2. Microscopic hematuria. 3. Diverticulosis. DISPOSITION: Discharge. MD Dodie Cota C: Domi Handley DO T: NTS JOB: [id number] 04/23/17 0646 <Electronically signed by Leighton Mckenna MD> Date Leighton Mckenna MD Cosigner Signature (If Indicated): Date CC: Domi Handley DO Date Dictated: 04/22/171525 Date Transcribed: 04/22/171525 Golf Ball Cover Treater: Signed Domi Handley Start: 04-22-2017 End: 04-22-2017 Discharge Instruction Comments: See Note; NOTES: [facility] Medical Records Department [address] [place] [address] Discharge Instruction 04/22/17 1524 MR#: [id number] Acct: [id number] Name: MARILIN BARLOW Rep #: [id number] : 1965 51 From: Leighton Mckenna MD PCP: Domi Handley DO Status: REG ER ED Disposition - Plan for ED Patient: Disposition: Home or Assisted Living Chief Complaint: Abd Pain Instructions: ED Abdominal Pain Unkn Cause Prescriptions: Dicyclomine HCl [Bentyl] 20 mg PO ACHS #10 capsule Referrals: Domi Handley DO [Primary Care Provider] - 3-5 Days if not improving What to do if you have Problems For any increased pain, shortness of breath, bleeding, nausea or vomiting, chest pain, or any unexpected problems, contact your Primary Care Provider. Call [facility] ([phone]) or report to the closest Emergency Room. Call 911 if necessary. 04/22/17 1527 <Electronically signed by Leighton Mckenna MD> Date Leighton Mckenna MD Cosigner Signature (If Indicated): Date CC: Domi Colmenares Start: 04-22-2017 End: 04-22-2017 Abdomen/Pelvis WITH Contrast Comments: See Note; NOTES: [facility] Imaging Services [address] [place] [address] Griseldana 4d Abdomen/Pelvis WITH Contrast MR#: [id number] Acct: [id number] Name: MARILIN BARLOW Rep #: [id number] : 1965 F 51 From: Aquilino Mckeon DO PCP: Domi Handley DO Status: REG ER Study: Abdomen/Pelvis WITH Contrast Date of Exam: 04/22/17 Exam# [id number] Ordering Dr: Leighton Mckenna MD STUDY: CT ABDOMEN AND PELVIS WITH CONTRAST REASON FOR EXAM: Female, 51 years old. Left-sided abdominal pain and history of diverticulitis RADIATION DOSAGE (If Supplied By Facility): CTDIvol = ( 15.41 ) mGy, DLP = ( 1187.22 ) mGycm TECHNIQUE: Transaxial images were obtained from the dome of the diaphragm to the symphysis pubis with oral contrast. 100 ml of Isovue 300 contrast was administered. Sagittal and coronal images were reconstructed. Individualized dose optimization techniques were used for this CT. COMPARISON: 11/14/15 FINDINGS: The visualized lung bases are unremarkable. The visualized portions of the heart are within normal limits. Normal liver. Normal gallbladder and extrahepatic biliary system. Normal spleen. Normal pancreas. Normal bilateral adrenal glands. Normal right kidney. Normal left kidney. Normal visualized stomach. Normal small intestine. There are multiple colonic diverticula consistent with diverticulosis. There is non-visualization of the appendix. Normal abdominal aorta. Normal inferior vena cava. Normal retroperitoneum. Normal urinary bladder. Normal visualized uterus. Normal abdominal wall. There are diffuse degenerative changes of the visualized lumbar spine. Grade 1 anterolisthesis of L5 on S1. CT/Abdomen/Pelvis WITH Contrast IMPRESSION: Diverticulosis without acute diverticulitis. Remainder is within normal limits. Electronically Signed: Aquilino Mckeon DO at 14:32 EDT Tel , Service support , CC: Domi Handley DO; Leighton Mckenna MD Golf Ball Cover Treater: Signed Domi Tawanda Start: 03-29-2017 End: 03-29-2017 Venous Duplex Lower Extremity Comments: See Note; NOTES: [facility] Cardiovascular Services [address] [place] [address] Venous Duplex US, Unilateral 03/27/17 1510 MR#: [id number] Acct: [id number] Name: MARILIN BARLOW Rep #: [id number] : 1965 51 From: Colby Trevino MD Attending Dr: Zahra Renner CORE JAVA ENGINEER-C Status: REG CLI Ordering Dr: Zahra Renner CORE JAVA ENGINEER-C Date: 03/27/17 Location: CT Sex: F C Admitted: Reason For Study: LLE pain RIGHT LEFT CFV is compressible, spontaneous, phasic, GSV is normal. competent and demonstrates normal CFV is compressible, spontaneous, phasic , augmentation. competent, and demonstrates normal Procedure augmentation. Exam performed in department. FV is compressible, spontaneous, phasic, The exam was diagnostic. competent and demonstrates normal A preliminary report was called and/or faxed augmentation. to Zahra Renner @ [phone]. POP V is compressible, spontaneous, phasic, competent and demonstrates normal augmentation. T/P Trunk is compressible. PTV is compressible. LT PerV is compressible. LLE varocosities are compressible. Interpretation Summary Deep veins of the left lower extremity are patent and compressible segmentally. There is no evidence of left lower extremity deep vein thrombosis. Valvular competence appears intact within the proximal deep venous system on the left . The left greater saphenous vein appears patent and compressible segmentally. There is no evidence of acute superficial thrombophlebitis in the left lower extremity. Ordering Physician: Zahra Renner Referring Physician: Domi Handley M.D. Performed By: Quynh Moraes, ARLEY, RVT 03/29/172215 Date Colby Trevino MD CC: Zahra Renner; Domi Handley DO Date Dictated: 03/27/17 1510 Date Transcribed: 03/29/172215 Golf Ball Cover Treater: Signed Zahra Renner Start: 03-27-2017 End: 03-27-2017 CTA Chest W/WO Contrast Comments: See Note; NOTES: [facility] Imaging Services [address] [place] [address] Verdana 4d CTA Chest W/WO Contrast MR#: [id number] Acct: [id number] Name: MARILIN BARLOW Rep #: [id number] : 1965 F 51 From: Clover Rojas MD PCP: Domi Handley DO Status: REG CLI Study: CTA Chest W/WO Contrast Date of Exam: 03/27/17 Exam# [id number] Ordering Dr: Zahra Renner STUDY: CTA CHEST REASON FOR EXAM: Female, 51 years old. Shortness of breath after recent travel. RADIATION DOSAGE (If Supplied By Facility): CTDIvol = ( 29.9 ) mGy, DLP = ( 624.75 ) mGycm TECHNIQUE: The examination was performed with the intravenous administration of 100 ml of Isovue 370 contrast material. Post-processing of the angiographic images was performed, with multiplanar reformation and 3D reconstruction. Individualized dose optimization techniques were used for this CT. COMPARISON: None. FINDINGS: Normal enhancement of the main pulmonary artery and right and left pulmonary arteries. Normal enhancement of the bilateral peripheral pulmonary arteries. There is no demonstrated pulmonary embolism. There is prominence of the main pulmonary arteries and peripheral pulmonary arteries. There is atherosclerotic tortuosity of the aortic arch and descending thoracic aorta. There is no demonstrated aortic dissection. Normal heart and pericardium. Normal mediastinum. Normal hilar regions. Normal visualized trachea and bronchi. The lungs are well expanded. There is mild groundglass attenuation right upper lobe that may represent some atelectasis or early airspace disease. The lungs otherwise appear to be clear. Normal pleura. Normal chest wall structures. Normal osseous structures. Normal visualized upper abdomen. CT/CTA Chest W/WO Contrast IMPRESSION: 1. No CTA demonstrated pulmonary embolism or arterial dissection. 2. Right upper lobe groundglass attenuation could represent early pneumonia. Electronically Signed: Clover Rojas MD at 17:05 EDT , Service support , CC: Zahra Renner; Domi Handley DO Golf Ball Cover Treater: Signed Zahra Renner Start: 11-14-2016 End: 11-14-2016 Discharge Instruction Comments: See Note; NOTES: [facility] Medical Records Department [address] [place] [address] Discharge Instruction 10/31/166 MR#: [id number] Acct: [id number] Name: MARILIN BARLOW Rep #: [id number] : 1965 51 From: Wally Sosa MD PCP: Domi Handley DO Status: DEP ER ED Disposition - Plan for ED Patient: Disposition: Home or Assisted Living Chief Complaint: Wound Check Instructions: Abscess Drainage Referrals: Domi Handley DO [Primary Care Provider] - What to do if you have Problems For any increased pain, shortness of breath, bleeding, nausea or vomiting, chest pain, or any unexpected problems, contact your Primary Care Provider. Call [facility] ([phone]) or report to the closest Emergency Room. Call 911 if necessary. 11/14/16 9802 <Electronically signed by Wally Sosa MD> Date Wally Sosa MD Cosigner Signature (If Indicated): Date CC: Domi Colmenares Start: 11-14-2016 End: 11-14-2016 Emergency Department Summary Comments: See Note; NOTES: [facility] Medical Records Department [address] [place] [address] Emergency Department Summary MR#: [id number] Acct: [id number] Name: MARILIN BARLOW Rep #: [id number] : 1965 51 From: Wally Sosa MD PCP: Domi Handley DO Status: [facility] DATE OF SERVICE: 10/31/2016 CHIEF COMPLAINT: Infected cyst. MODE OF TRANSPORT: Private vehicle. HISTORY OF PRESENT ILLNESS: This is a 51-year-old female with an infected cyst on her left back. She has had the cyst before. It has been infected before. It went away for a couple of years and then came back last week. She noticed over the last 4 days it started hurting. She saw her family doctor today. It did open and drained some pus out. She was started on Omnicef. She came in because she is unsure if it needs to be drained more. PHYSICAL EXAMINATION: VITAL SIGNS: Reviewed. Afebrile. EXTREMITIES: She has a 0.5 x 0.5 necrotic cyst with an abscess noted. It is spontaneously draining from a large central necrotic area over 50% of the diameter. She has a 1 x 1 inch surrounding cellulitis. EMERGENCY DEPARTMENT COURSE: I squeezed this area and opened and drained the rest of the purulence out of the infected cyst. It is very superficial and soft. There is nothing left in it. I removed all the necrotic debris on the surface of it. She continued to drain. It was cleaned with chlorhexidine and a dressing was placed. She will be discharged and to follow up as an outpatient. She is instructed on wound care. She will continue her antibiotics. DISPOSITION: Home. IMPRESSION: 1. Left posterior back abscess secondary to an infected cyst. 2. Left back cellulitis. Wally Sosa MD T: NTS JOB: [id number] 11/14/16 2305 <Electronically signed by Wally Sosa MD> Date Wally Sosa MD Cosigner Signature (If Indicated): Date CC: Domi Handley DO Date Dictated: 10/31/162228 Date Transcribed: 10/31/162228 Golf Ball Cover Treater: Signed Domi Handley Start: 09-07-2016 End: 09-07-2016 Abdomen Complete Comments: See Note; NOTES: [facility] Imaging Services [address] [place] [address] Verdana 4d Abdomen Complete MR#: [id number] Acct: [id number] Name: MARILIN BARLOW Rep #: [id number] : 1965 F 51 From: Minh Schmid DO PCP: Domi Handley DO Status: REG CLI Study: Abdomen Complete Date of Exam: 09/07/16 Exam# [id number] Ordering Dr: Domi Handley DO STUDY: ABDOMINAL ULTRASOUND REASON FOR EXAM: Female, 51 years old. Left upper quadrant pain. TECHNIQUE: Transabdominal ultrasound was performed with real-time and static sood scale imaging. TECHNICAL QUALITY: Adequate. COMPARISON: CT the abdomen pelvis, November 21, 2015 FINDINGS: Liver: The liver measures 14.5 cm. There is normal echogenicity of the liver. The bile ducts are within normal limits. There is hepatic color flow. The direction of portal flow is hepatopetal. There is no demonstrated mass lesion. Gallbladder: Normal distended gallbladder. The gallbladder wall measures 2 mm. There is a negative sonographic Garcia's sign. There is no pericholecystic fluid. There is minimal sludge. Common Bile Duct (C.B.D.): The common bile duct measures 2.6 mm. Pancreas: Normal size of the head, body and tail of the pancreas. There is normal echogenicity of the pancreas. There is no demonstrated pancreatic mass or cyst. Spleen: Normal size of the spleen. The spleen measures 10.7 cm. Right Kidney: Normal size of the right kidney. The right kidney measures 10.7 cm. Normal renal cortex. The right cortex measures 1.1 cm. There is a 1.6 x 1.0 x 0.7 cm cortical cyst. There are also small echogenic foci which may represent small nonobstructing renal calculi. There is no right hydronephrosis. Left Kidney: Normal size of the left kidney. The left kidney measures 10.9 cm. Normal renal cortex. The left cortex measures 1.9 cm. There is no demonstrated renal mass or cyst. There is no left hydronephrosis. Aorta: The aorta is without aneurysm. I.V.C.: The IVC is patent. There is no ascites. US/Abdomen Complete IMPRESSION: 1. Right renal cyst. 2. Question nonobstructing right renal calculi. 3. Minimal gallbladder sludge without evidence of acute cholecystitis. 4. Otherwise normal abdominal ultrasound. Electronically Signed: Minh Schmid DO at 16:04 EDT Tel [phone], Service support [phone], CC: Domi Handley DO Golf Ball Cover Treater: Signed Domi Handley Work Phone: Start: 05-18-2016 Mammography Marques Paul MD Work Phone: Start: 02-23-2016 Colonoscopy Marques Paul MD Work Phone: Start: 12-08-2015 End: 12-08-2015 Operative Report Comments: See Note; NOTES: [facility] Medical Records Department [address] [place] [address] Operative Report MR#: [id number] Acct: [id number] Name: MARILIN BARLOW Rep #: [id number] : 1965 50 From: Mansoor Pino MD PCP: Domi Handley DO Status: [facility] DATE OF SERVICE: 12/03/2015 DATE OF SERVICE: December 03, 2015 PREOPERATIVE DIAGNOSIS: Visually significant cataract, left eye. POSTOPERATIVE DIAGNOSIS: Visually significant cataract, left eye. PROCEDURE: Left eye cataract extraction with posterior chamber intraocular lens. It was a Tecnis Z9005, 22.5 diopter lens and estimated phaco time was 1.2 seconds at 6.5%. COMPLICATIONS: None. ANESTHESIA: MAC and topical anesthesia. DESCRIPTION OF PROCEDURE: The patient was taken to the operating room, placed in the supine position and placed under MAC anesthesia by the anesthesia service. The left eye and periorbital area were prepped and draped in the usual sterile ophthalmic fashion and the surgeon was seated temporally. A clear corneal incision was made at the temporal and inferior limbus and the anterior chamber was inflated using 1% nonpreserved lidocaine and viscoelastic. Capsulorrhexis was then made using a bent needle and capsulorrhexis forceps. The lens was hydrodissected and hydrodelineated using BSS on a cannula. The lens was then removed using the phacoemulsification handpiece and the remaining cortical material was removed using the I and A handpiece. The anterior chambers inflated using viscoelastic and a Tecnis Z9002, 22.5 diopter lens was placed into the capsular bag without complication. The remaining viscoelastic was irrigated from the eye using the I and A handpiece and the wound was hydrated. At the end of the procedure, the wound was watertight, lens was well centered within the capsular bag and the anterior chamber was deep. The patient was then taken to recovery room in stable and comfortable condition. Mansoor Pino MD T: NTS JOB: [id number] 12/08/15 1130 <Electronically signed by Mansoor Pino MD> Date Mansoor Pino MD Cosigner Signature (If Indicated): Date CC: Mansoor Pino MD; Domi Handley DO Date Dictated: 12/03/15828 Date Transcribed: 12/03/15828 Golf Ball Cover Treater: Signed Domi Handley Start: 12-06-2015 End: 12-06-2015 Abd Inc Decub and/or Erect Comments: See Note; NOTES: [facility] Imaging Services [address] [place] [address] Verdana 4d Abd Inc Decub and/or Erect MR#: [id number] Acct: [id number] Name: MARILIN BARLOW Rep #: [id number] : 1965 F 50 From: Nicola Flores MD PCP: Domi Handley DO Status: REG CLI Study: Abd Inc Decub and/or Erect Date of Exam: 12/06/15 Exam# [id number] Ordering Dr: Domi Handley DO STUDY: X-RAY - ABDOMEN/PELVIS REASON FOR EXAM: Female, 50 years old. Lower abdominal and left upper quadrant pain. TECHNIQUE: AP supine and upright views of the abdomen and pelvis. COMPARISON: None. FINDINGS: Normal visualized lung bases. There is an unremarkable bowel gas pattern. There is no demonstrated free abdominal air. The visualized liver, spleen and kidneys are grossly normal in size and morphology. Normal soft tissue structures. There are diffuse degenerative changes of the visualized lumbar spine. Sclerosis and narrowing of the symphysis pubis. IMPRESSION: No acute abnormality is seen. Electronically Signed: Nicola Flores MD at 12:37 EST Tel [phone], Service support [phone], RAD/Abd Inc Decub and/or Erect IMPRESSION: No acute abnormality is seen. Electronically Signed: Nicola Flores MD at 12:37 EST Tel [phone], Service support [phone], CC: Domi Handley DO Golf Ball Cover Treater: Signed Domi Handley Work Phone: Start: 12-03-2015 End: 12-03-2015 Discharge Instruction Comments: See Note; NOTES: [facility] Medical Records Department [address] [place] [address] Instructions for Home/Discharge Instructions 12/03/15 0826 MR#: [id number] Acct: [id number] Name: MARILIN BARLOW Rep #: [id number] : 1965 50 From: Mansoor Pino MD PCP: Domi Handley DO Status: REG SD Discharge Diet: No Restrictions Discharge Activity: - - Take it easy the rest of the day of surgery. Be careful not to trip or fall. Avoid bumping the operated eye and do not rub the eye. You may stay alone, but need to be able to call and/or come in if necessary. Try to sleep on the unoperated side or on your back tonight. Call your doctor if you observe: - - new or increased pain, a worsening of vision, or if you have any questions. Also call the office if you are experiencing a severe headache on the operative side, nausea or vomiting. Allergies/Adverse Reactions: Allergies celecoxib [From Celebrex] Allergy (Verified 11/30/15 14:42) Shortness of breath Medications to take at Discharge PrednisoLONE Acetate 1ML [Pred Forte 1 ml] 2 drop LEFT EYE BID 11/30/15 Ciprofloxacin [Cipro] 500 mg PO BID 12/03/15 Metronidazole [Flagyl] 500 mg PO 4X/DAY 12/03/15 -Take a pain reliever such as Tylenol, Aspirin or Ibuprofen if needed for eye aching or pain. If this is not enough relief for you pain, call your doctor (or the doctor vacation sales advisor), even at night. -You are [facility] the day after surgery. You should have someone drive you. -Transient pain and irritation are due to the incision that was made at the time of surgery and do not indicate any trouble. Our office numbers are or toll-free . If there is no answer, or if it is after our normal business hours, call your surgeon. Our home phone numbers are: Dr. Wagner Dr. Burroughs Dr. Pino Dr. Dominguez Dr. Yumiko Gamez If you are still unable to reach your doctor, call the answering service and [facility] , and the heat treat furnace operator can contact the on-call doctor through a long-range beeper system. INSTRUCTIONS FOLLOWING TOPICAL ANESTHETIC CATARACT SURGERY Protect operated eye with glasses or metal shield at all times. Instill one drop of Cipro (or other antibiotic drop), one drop of Prednisolone and one drop of Flurbiprofen in the operated eye four times a day (breakfast, lunch, dinner and bedtime) until the doctor tells you to quit or decrease them. Wait 3-5 minutes between each drop. Your first drop for today was given after surgery. INSTRUCTIONS FOLLOWING RETROBULBAR CATARACT SURGERY Keep the eye patch and metal shield on until you see your surgeon the day after surgery - these will be removed in the office that day. Do not drive while the patch is on your eye. You will be instructed about the use of drops for the operated eye at that visit. 12/03/15 0826 <Electronically signed by Mansoor Pino MD> Date Mansoor Pino MD CC: Domi Colmenares Start: 11-23-2015 End: 11-23-2015 Emergency Department Summary Comments: See Note; NOTES: [facility] Medical Records Department [address] [place] [address] Emergency Department Summary MR#: [id number] Acct: [id number] Name: MARILIN BARLOW Rep #: [id number] : 1965 50 From: Chanelle Knutson MD PCP: Domi Handley DO Status: [facility] DATE OF SERVICE: 11/21/2015 CHIEF COMPLAINT: Abdominal pain. GIORDANO HISTORY: The patient is a 50-year-old female with lower abdominal pain for the past 4 days. She has been complaining of back pain for 2 weeks. She states she was constipated for a few days and this is very abnormal for her. She did pass some narrow caliber stool. Since then, she is concerned that she may have diverticulitis. She has a family history, but she herself has never been diagnosed. She has had no fever. No nausea or vomiting. PHYSICAL EXAMINATION: VITAL SIGNS: Reveal blood pressure 179/95, temperature 96.9, heart rate 87, respiratory rate is 15, and pulse oximetry is 98% on room air. GENERAL: The patient is sitting upright in bed, in no acute distress. She is nontoxic appearing. HEAD AND NECK: Unremarkable. HEART: Regular. LUNGS: Clear. ABDOMEN: Soft with mild lower abdominal tenderness. There is no guarding or rebound. She has hypoactive bowel sounds. HOSPITAL COURSE: CBC reveals a white count of 11.3 with 82% neutrophils. Chemistry studies are normal. Urinalysis shows some blood, but she is currently menstruating. CT of the abdomen and pelvis with contrast shows acute diverticulitis of the distal descending colon. The patient declined anything for pain while here. Repeat blood pressure is 136/71. She will be treated with Cipro and Flagyl, first dose is given here. Encouraged to return for worsening pain, fever or inability to tolerate the medicine. DISPOSITION: Discharge. IMPRESSION: Acute diverticulitis. Chanelle Knutson MD T: NTS JOB: [id number] 11/23/15 0046 <Electronically signed by Chanelle Knutson MD> Date Chanelle Knutson MD Cosigner Signature (If Indicated): Date CC: Domi Handley DO Date Dictated: 11/21/151555 Date Transcribed: 11/21/151555 Golf Ball Cover Treater: Signed Domi Handley Start: 11-21-2015 End: 11-21-2015 Discharge Instruction Comments: See Note; NOTES: [facility] Medical Records Department [address] [place] [address] Discharge Instruction 11/21/151553 MR#: [id number] Acct: [id number] Name: MARILIN BARLOW Rep #: [id number] : 1965 50 From: Chanelle Knutson MD PCP: Domi Handley DO Status: REG ER ED Disposition - Plan for ED Patient: Disposition: Home or Assisted Living Chief Complaint: Abd Pain Instructions: ED Diverticulitis Prescriptions: Metronidazole [Flagyl] 500 mg PO Q6H #40 tablet Ciprofloxacin [Cipro] 500 mg PO BID #14 tablet Referrals: Domi Handley DO [Primary Care Provider] - 1-2 Weeks What to do if you have Problems For any increased pain, shortness of breath, bleeding, nausea or vomiting, chest pain, or any unexpected problems, contact your doctor. Call [facility] ([phone]) or report to the closest Emergency Room. Call 911 if necessary. 11/21/151555 <Electronically signed by Chanelle Knutson MD> Date Chanelle Knutson MD Cosigner Signature (If Indicated): Date CC: Domi Colmenares Start: 11-21-2015 End: 11-21-2015 Abdomen/Pelvis WITH Contrast Comments: See Note; NOTES: [facility] Imaging Services [address] [place] [address] Verdana 4d Abdomen/Pelvis WITH Contrast MR#: [id number] Acct: [id number] Name: MARILIN BARLOW Rep #: [id number] : 1965 F 50 From: Leidy Aleman MD PCP: Domi Handley DO Status: REG ER Study: Abdomen/Pelvis WITH Contrast Date of Exam: 11/21/15 Exam# [id number] Ordering Dr: Chanelle Knutson MD STUDY: CT ABDOMEN AND PELVIS WITH CONTRAST REASON FOR EXAM: Female, 50 years old. Pain across lower abdomen 3 days RADIATION DOSAGE (If Supplied By Facility): CTDIvol = ( 26.58 ) mGy, DLP = ( 2862.72 ) mGycm TECHNIQUE: Transaxial images were obtained from the dome of the diaphragm to the symphysis pubis without oral contrast. 100CC ml of Isovue 300 contrast was administered. Sagittal and coronal images were reconstructed. COMPARISON: None. FINDINGS: The visualized lung bases are unremarkable. The visualized portions of the heart are within normal limits. Normal liver. Normal gallbladder and extrahepatic biliary system. Normal spleen. Normal pancreas. Normal bilateral adrenal glands. There is a well-circumscribed cystic structure in the right kidney measuring 1.2 cm. Normal left kidney. There is a small hiatal hernia. Normal small intestine. There are diverticula present within the descending colon. Within the distal descending colon there is a focus of thickening of the wall of the colon measuring approximately 7 cm in length with inflammation of the diverticula compatible with acute diverticulitis. This is seen on image #62. The appendix is visualized and appears normal. There is minimal calcification of the aorta. Normal inferior vena cava. Normal retroperitoneum. Normal urinary bladder. Normal visualized uterus. There is a small umbilical hernia containing fat. There is a grade 1 normal screening 2 spondylolisthesis at the level of L5-S1 the spondylolysis. There is disc space narrowing endplate sclerosis spondylosis broad disc bulge with moderate neural foraminal narrowing and minimal central stenosis. At L4-L5 there is moderate neural foraminal narrowing left greater than right. IMPRESSION: Acute diverticulitis of the distal descending colon. Grade 1 with grade 2 spondylolisthesis at L5-S1 9-appearing right renal cyst N.B. : The above information has been verbally conveyed by Leidy Aleman MD to Dr Chanelle Knutson, Referring Physician, on 11/21/2015 15:48:52 (ET). Electronically Signed: Leidy Aleman MD at 15:39 EST Tel , Service support [phone], N.B. : The above information has been verbally conveyed by Leidy Aleman MD to Dr Chanelle Knutson, Referring Physician, on 11/21/2015 15:48:52 (ET). CC: Chanelle Knutson MD; Domi Handley DO Golf Ball Cover Treater: Signed Domi Handley Start: 08-26-2015 End: 08-26-2015 Emergency Department Summary Comments: See Note; NOTES: [facility] Medical Records Department [address] [place] [address] Emergency Department Summary MR#: [id number] Acct: [id number] Name: MARILIN BARLOW Rep #: [id number] : 1965 50 From: Anita Barrera DO PCP: Domi Handley DO Status: [facility] ER DATE OF SERVICE: 08/25/2015 CHIEF COMPLAINT: Visual field loss. HISTORY OF PRESENT ILLNESS: A 50-year-old female with some loss of vision in her left eye. She states it is like a blob in her lateral vision when she turns her head, the blob seems to move like a floater would and this has been there since yesterday. Denies any trauma to her head. She has had floaters before. She is not currently on any blood thinners. She denies any real headache. She states it may be a mild one, but she has these chronically because of her chronic neck and back pain. PAST MEDICAL HISTORY: Significant for DJD. SURGICAL HISTORY: None. PRIMARY CARE PHYSICIAN: Domi Handley D.O. ALLERGIES: CELEBREX. SOCIAL HISTORY: She does not smoke. Drinks alcohol occasionally. Denies any illicit drug use. PHYSICAL EXAMINATION: VITAL SIGNS: Blood pressure 150/80, heart rate 80, respirations 16, pulse oximetry 96. Visual acuity 30/30 left eye, 30/30 right eye and 30/30 with both eyes. GENERAL APPEARANCE: She is awake, alert, in no acute distress. HEENT: Normocephalic, atraumatic. Pupils equal, react to light bilaterally. Extraocular muscle movement is normal. Anterior chambers normal bilaterally. EXTREMITIES: Evaluation of the left eye, I was able to perform a funduscopic exam and she does have a black dark discoloration to the upper portion of the retina, concern for hemorrhage. Exam otherwise unremarkable. EMERGENCY DEPARTMENT COURSE: The patient's case was discussed with Dr. Pino, who will see the patient this afternoon at 1:00 p.m. for exam and further treatment and evaluation at this point, the patient will be discharged to home. DIAGNOSIS: Visual field loss, suspect retinal hemorrhage. The patient is instructed to follow up with Dr. Pino in the office at 1:00 p.m. Anita Barrera DO T: CHER JOB: [id number] 08/26/152326 <Electronically signed by Anita Barrera DO> Date Anita Barrera DO 08/26/152326 <Electronically signed by Anita Barrera DO> Cosigner Signature (If Indicated): Date Anita Barrera DO CC: Domi Handley DO Date Dictated: 08/25/151105 Date Transcribed: 08/25/151105 Golf Ball Cover Treater: Signed Domi Handley Start: 08-25-2015 End: 08-25-2015 Discharge Instruction Comments: See Note; NOTES: [facility] Medical Records Department [address] [place] [address] Discharge Instruction 08/25/15 110 MR#: [id number] Acct: [id number] Name: MARILIN BARLOW Rep #: [id number] : 1965 50 From: Anita Barrera DO PCP: Domi Handley DO Status: REG ER ED Disposition - Plan for ED Patient: Chief Complaint: Eye Problem Instructions: ED Blurred Vision Referrals: Domi Handley DO [Primary Care Provider] - Mansoor Pino MD [STAFF PHYSICIAN] - 08/25/15 1:00 pm What to do if you have Problems For any increased pain, shortness of breath, bleeding, nausea or vomiting, chest pain, or any unexpected problems, contact your doctor. Call [facility] ([phone]) or report to the closest Emergency Room. Call 911 if necessary. 08/25/15 1104 <Electronically signed by Anita Barrera DO> Date Anita Barrera DO Cosigner Signature (If Indicated): Date CC: Domi Colmenares Start: 01-30-2015 End: 01-30-2015 Lower Ext Joint Only (Routine) Comments: See Note; NOTES: [facility] Imaging Services [address] [place] [address] MRI Report MR#: [id number] Acct: [id number] Name: MARILIN BARLOW Rep #: [id number] : 1965 F 49 From: Doug Seals MD PCP: Aundrea Hurt MD Status: REG CLI Study: Lower Ext Joint Only (Routine) Date of Exam: 01/30/15 Exam# [id number] Ordering Dr: Rubi Ocampo DO STUDY: MRI LEFT KNEE REASON FOR EXAM: Female, 49 years old. Pain TECHNIQUE: Standardized fat and water weighted pulse sequences were obtained in all 3 orthogonal planes. COMPARISON: X-ray left knee 01/23/15 FINDINGS: There is a joint effusion and a popliteal cyst (image 15, 17/30 axial T2 fat-sat). There is extensive edema at the subcutaneous fat (image 7/30 axial T2 fat-sat). Varicosities. There is loss of articular cartilage the patellofemoral joint compartment predominating at the lateral facet. There are small osteochondral lesions at the patella at the apex and lateral facet (image 13, 11, 10/30 axial T2 fat sat). There is tear at the junction of the body/anterior horn lateral meniscus (image 33, 32, 30/42 sagittal proton-density, 19/24 sagittal T2 fat sat, 17/30 coronal proton density). Normal medial meniscus. Normal hyaline cartilage of the medial femorotibial compartment. Normal medial femoral condyle and tibial plateau. Normal medial collateral ligamentous complex (MCL). Normal distal semimembranosus, gracilis and semitendinosus tendons. Normal proximal tibiofibular articulation. Normal lateral collateral (fibular) ligament. Normal popliteus tendon. Normal biceps femoris tendon. Normal anterior cruciate ligament (ACL). Normal posterior cruciate ligament (PCL). Normal quadriceps tendon. Normal patellar tendon. Normal Hoffa's fat pad. IMPRESSION: Lateral meniscus tear Patellofemoral osteoarthritis Joint effusion and popliteal cyst Electronically Signed: Doug Seals MD at 10:44 EST Tel , Service support [phone], CC: Rubi Ocampo DO; Aundrea Hurt MD Golf Ball Cover Treater: Signed Domi Handley Start: 01-27-2015 End: 01-27-2015 Emergency Department Summary Comments: See Note; NOTES: [facility] Medical Records Department [address] [place] [address] Emergency Department Summary MR#: [id number] Acct: [id number] Name: MARILIN BARLOW Rep #: [id number] : 1965 49 From: Waldo Arevalo MD PCP: Aundrea Hurt MD Status: DEP ER DATE OF SERVICE: 01/23/2015 CHIEF COMPLAINT: Left leg pain. HISTORY OF PRESENT ILLNESS: The patient has left knee pain. His left chest discomfort is minimal. She is worried about her knee is very painful, getting worse. She just got off a flight 2 days ago after being down for a few days in [place]. She knows the knee was hurting even a couple of days before the flight. She has not had any PE history. There is some heart history in the family. She has chronic knee pain, but never this severe. She points to the anterior knee subpatellar and somewhat to the very proximal upper leg. She has old injury with some venous dilatation sense. She describes the pain as achy in the chest, but more severe. The left chest discomfort is somewhat high and up the left clavicle area and posterior shoulder area. She said it hurt to move her shoulder and arm. Leg hurts with flexion and extension, but not into the calf. She has history of asthma. No other cardiac risk factors other than family. PHYSICAL EXAMINATION: VITAL SIGNS: Stable, pulse oximetry 100%, a little tachycardic about 100, but she seems uncomfortable. GENERAL: Well developed, well nourished, slightly heavy female lying on stretcher. HEENT: Normal. Membranes are moist. NECK: Supple. Trachea midline. No stridor. No adenopathy. HEART: Regular now in the 80s, no murmurs or gallops, clicks or rubs. LUNGS: Clear, no wheeze or rhonchi. No chest wall discomfort, left arm movement does not hurt. ABDOMEN: Soft and rotund without pain on palpation. EXTREMITIES: Her left knee has very severe diffuse pain, but it seems more subpatellar and over the very proximal tibia. She has possibly some swelling. She says her left leg is always bigger and her calf is at 51 cm as compared to right at 47 cm. I do not feel any cords, calf pain. No suggestion of DVT. Negative Homans sign. Distal motor, sensory and vascular intact. She has no instability to the knee, but it is painful to test it. No popliteal fullness or pain. No proximal or distal discomfort. Other joints do not appear to be involved. NEUROLOGIC: She is alert and oriented, a little anxious, but no focal neurological deficits. TREATMENT: Portable one-view chest x-ray shows no acute process. Her left knee films show some chronic changes. CTA chest showed no obvious PE. Her D-dimer was up a little at 0.62. Troponin was normal as well as EKG in the 80s. CBC and chemistries normal. Toradol 30 mg IV was of little help. Morphine 4 mg, Zofran 4 mg again for knee was of little help, but Dilaudid 1 mg IV markedly helped and she is smiling now and says she can make it home. They are going to try to arrange a walker for her and try to follow up with Dr. Hurt in 5-7 days. I gave her Percocet x20, 4 to go for severe pain and watch for constipation, drowsiness, no driving. If her pain persists or swelling develops, she may still have to have an ultrasound, but I do not believe the exam was consistent with it at all other than the history, which was suspicious. She is going to keep the leg elevated. Ice or heat, whichever feels better and recheck sooner for any return of any chest discomfort, trouble breathing, worse or persistent knee pain, swelling, discoloration, numbness or tingling. DIAGNOSES: 1. Acute left knee pain. 2. Atypical chest pain. Waldo Arevalo MD C C: Aundrea Hurt MD T: NTS JOB: [id number] 01/27/15 1540 <Electronically signed by Waldo Arevalo MD> Date Waldo Arevalo MD CC: Aundrea Hurt MD Date Dictated: 01/24/1514 Date Transcribed: 01/24/1514 Golf Ball Cover Treater: Signed Domi Handley Start: 01-26-2015 End: 01-26-2015 12 lead ECG Comments: See Note; NOTES: [facility] Cardiovascular Services [address] [place] [address] 12 Lead EKG 01/23/151950 MR#: [id number] Acct: [id number] Name: MARILIN BARLOW Rep #: [id number] : 1965 49 From: Stalin Ayers MD Attending Dr: Status: DEP ER Ordering Dr: Waldo Arevalo MD Date: 01/23/15 Location: ED Sex: F C Admitted: Test Reason : PAIN Blood Pressure : / mmHG Vent. Rate : 081 BPM Atrial Rate : 081 BPM P-R Int : 140 ms QRS Dur : 078 ms QT Int : 386 ms P-R-T Axes : 058 012 045 degrees QTc Int : 448 ms Normal sinus rhythm Normal ECG Confirmed by STALIN AYERS MD ([id number]), magazine editor VINH ROJAS ([id number]) on 01/26/2015 3: 09:11 PM Referred By: JOHN Confirmed By:STALIN AYERS MD 01/26/15 1509 Date Stalin Ayers MD CC: Aundrea Hurt MD Date Dictated: 01/23/151950 Date Transcribed: 01/23/151950 Golf Ball Cover Treater: Signed Domi Handley Start: 01-23-2015 End: 01-25-2015 Discharge Instruction Comments: See Note; NOTES: [facility] Medical Records Department [address] [place] [address] Discharge Instruction 01/23/154 MR#: [id number] Acct: [id number] Name: MARILIN BARLOW Rep #: [id number] : 1965 49 From: Waldo Arevalo MD PCP: Aundrea Hurt MD Status: REG ER ED Disposition - Plan for ED Patient: Chief Complaint: Chest Other Instructions: ED Knee Pain, Uncertain Cause Prescriptions: Oxycodone HCl/Acetaminophen [Percocet 5/325] 1 - 2 tablet PO Q6H PRN PRN #20 tablet PRN Reason: Pain Referrals: Aundrea Hurt MD [Primary Care Provider] - 1-2 Days if not improving What to do if you have Problems For any increased pain, shortness of breath, bleeding, nausea or vomiting, chest pain, or any unexpected problems, contact your doctor. Call [facility] ) or report to the closest Emergency Room. Call 911 if necessary. 02/28/15 2316 <Electronically signed by Waldo Arevalo MD> Date Waldo Arevalo MD Cosigner Signature (If Indicated): Date CC: Aundrea Stevensrichard Bolanoson Start: 01-23-2015 End: 01-25-2015 Knee 3 Views Comments: See Note; NOTES: [facility] Imaging Services [address] [place] [address] Radiology Report MR#: [id number] Acct: [id number] Name: MARILIN BARLOW Rep #: [id number] : 1965 F 49 From: Minh Schmid DO PCP: Aundrea Hurt MD Status: DEP ER Study: Knee 3 Views Date of Exam: 01/23/15 Exam# [id number] Ordering Dr: Waldo Arevalo MD STUDY: X-RAY - LEFT KNEE REASON FOR EXAM: Female, 49 years old. Knee pain. Decreased range of motion. TECHNIQUE: There are view(s) of the knee. COMPARISON: None. FINDINGS: Normal visualized distal femur. Normal visualized proximal tibia and fibula. Normal proximal tibiofibular articulation. There is no acute fracture, dislocation or destructive osseous pathology. There is mild degenerative arthrosis of the medial femorotibial compartment. Normal lateral femorotibial compartment. There is mild degenerative arthrosis of the patellofemoral articulation. There is no demonstrated joint effusion. There are soft tissue densities overlying the anterior thigh that have the appearance of distended varices. IMPRESSION: Degenerative arthrosis. Electronically Signed: Minh Schmid DO at 9:54 EST Tel [phone], Service support [phone], CC: Aundrea Hurt MD; Waldo Arevalo MD Golf Ball Cover Treater: Signed Domi Handley Start: 01-23-2015 End: 01-25-2015 CTA Chest W/WO Contrast Comments: See Note; NOTES: [facility] Imaging Services [address] [place] [address] CAT Scan Report MR#: [id number] Acct: [id number] Name: MARILIN BARLOW Rep #: [id number] : 1965 F 49 From: Mansoor Walker MD PCP: Aundrea Hurt MD Status: REG ER Study: CTA Chest W/WO Contrast Date of Exam: 01/23/15 Exam# [id number] Ordering Dr: Waldo Arevalo MD STUDY: CTA CHEST REASON FOR EXAM: Female, 49 years old. Elevated d-dimer RADIATION DOSAGE (If Supplied By Facility): CTDIvol = ( 16.25 ) mGy, DLP = ( 690.5 ) mGycm TECHNIQUE: The examination was performed with the intravenous administration of 100 ml of Isovue 370 contrast material. Post-processing of the angiographic images was performed, with multiplanar reformation and 3D reconstruction. COMPARISON: None. FINDINGS: Normal enhancement of the main pulmonary artery and right and left pulmonary arteries. Normal enhancement of the bilateral peripheral pulmonary arteries. There is no demonstrated pulmonary embolism. Normal thoracic aorta and visualized great vessels. There is no demonstrated aortic dissection. Normal heart and pericardium. Normal mediastinum. Normal hilar regions. Normal visualized trachea and bronchi. The lungs are well expanded. Minor nonspecific interstitial prominence is noted. There is no focal infiltrate or pulmonary nodule. Normal pleura. Normal chest wall structures. Dorsal spine demonstrates moderate spondylosis Small hiatal hernia is demonstrated Normal visualized upper abdomen. IMPRESSION: Minor interstitial prominence. No evidence for pulmonary embolus. Electronically Signed: Mansoor Walker MD at 20:53 EST , Service support [phone], CC: Aundrea Hurt MD; Waldo Arevalo MD Golf Ball Cover Treater: Signed Domi Handley Start: 01-23-2015 End: 01-25-2015 Chest 1 View (Portable) Comments: See Note; NOTES: [facility] Imaging Services [address] [place] [address] Radiology Report MR#: [id number] Acct: [id number] Name: MARILIN BARLOW Rep #: [id number] : 1965 F 49 From: Mansoor Walker MD PCP: Aundrea Hurt MD Status: REG ER Study: Chest 1 View (Portable) Date of Exam: 01/23/15 Exam# [id number] Ordering Dr: Waldo Arevalo MD STUDY: X-RAY CHEST REASON FOR EXAM: Female, 49 years old. Left-sided pain TECHNIQUE: AP portable COMPARISON: None. FINDINGS: Mild nonspecific diffuse interstitial prominence is seen. No focal infiltrates are observed There is no demonstrated pleural abnormality. Normal size heart. Normal mediastinum and yovani. Normal visualized pulmonary arteries. Normal visualized aortic arch and descending thoracic aorta. Normal visualized thoracic spine. Normal visualized ribs, clavicles, and shoulders. There is no demonstrated abnormality of the visualized soft tissue structures of the upper abdomen. IMPRESSION: Mild diffuse nonspecific interstitial prominence Electronically Signed: Mansoor Walker MD at 21:38 EST , Service support [phone], CC: Aundrea Hurt MD; Waldo Arevalo MD Golf Ball Cover Treater: Signed Domi Handley Start: 01-13-2014 End: 01-15-2014 Pelvic (Non ) Comments: See Note; NOTES: [facility] Imaging Services [address] [place] [address] Ultrasound Report MR#: [id number] Acct: [id number] Name: MARILIN BARLOW Rep #: [id number] : 1965 F 48 From: Nicola Flores MD PCP: Aundrea Hurt MD Status: REG CLI Study: Pelvic (Non ) Date of Exam: 01/13/14 Exam# [id number] Ordering Dr: Domi Handley DO STUDY: ULTRASOUND OF THE FEMALE PELVIS - COMPLETE REASON FOR EXAM: Female, 48 years old. LMP: December 26, 2013. Pelvic pain. TECHNIQUE: Transabdominal TECHNICAL QUALITY: Adequate. COMPARISON: None. FINDINGS: The uterus is anteverted and is in a midline position. The uterus measures 10.4 cm x 4.7 cm x 4.8 cm. Normal uterine cervix. The endometrium measures 1.8 mm in thickness, and is hyperechoic. There is no demonstrated endometrial mass. There is no demonstrated myometrial mass. I.U.D. - No The right ovary is visualized. The right ovary measures 2.0 cm x 2.0 cm x 1.2 cm. There is no right ovarian cyst or ovarian mass. There is no visualized right adnexal mass or complex lesion. There is normal arterial and normal venous vascularity. The left ovary is visualized. The left ovary measures 2.7 cm x 3.1 cm x 1.8 cm. There is no left ovarian cyst or ovarian mass. Small follicles are seen within it. There is no visualized left adnexal mass or complex lesion. There is normal arterial and normal venous vascularity. There is no fluid in the cul-de-sac. The distended urinary bladder had a volume of 401 ml at the time of the exam. IMPRESSION: Normal female pelvis. Electronically Signed: Nicola Flores M.D. at 15:05 EST , Service support [phone], CC: Aundrea Hurt MD; Domi Handley DO Golf Ball Cover Treater: Signed Domi Handley Work Phone: 2 tears in lt knee Huber Agapito vis 2 tears in lt knee Huber Da vis 2 tears in lt knee Shannon Sl arb 2 tears in lt knee Huber Da vis [employer]CTIONAL SUPERVISOR D&C Huber De [place] D&C Huber De [place] D&C Shannon Mathurrb D&C Huber De [place] LP N eye sx [facility]er De [place] Comment on above: lt 2 sx eye sx Huber De [place] Comment on above: lt 2 sx eye sx Shannon Slarb Comment on above: lt 2 sx eye sx Huber De [place] LP N Comment on above: lt 2 sx H/O: section Huber De [place] Santos Comment on above: X 2 H/O: section Huber De [place] Comment on above: X 2 H/O: section Shannon Mathurrb Comment on above: X 2 H/O: section Huber De Los Santos [employer]CTIONAL SUPERVISOR Comment on above: X 2 H/O: tubal ligation Huber Jenkins fern H/O: tubal ligation Huber Jenkins fern H/O: tubal ligation Shannon S larb H/O: tubal ligation Huber Jenkins fern [employer]RECTIONAL SUPERVISOR superfical blood clot [facility]er De [place] superfical blood clot Huber De [place] superfical blood clot Shannon Mathurrb superfical blood clot Huber De [place] CORRECTIONAL SUPERVISOR Plan of Treatment Date Care Activity Detail Author Start: 03-29-2028 HPV TESTING HPV TESTING [facility] Start: 03-29-2028 PAP TESTING PAP TESTING [facility] Start: 09-21-2025 End: 09-21-2025 Patient encounter procedure Atrial fibrillation -[facility] Work Phone: Start: 09-10-2025 Patient encounter procedure Registered Clinical -Laboratory Specimen Work Phone: Start: 09-07-[address] [facility] Start: 09-07-2025 Smpl repair scalp/neck/ax/genit/trunk 2.6-7.5cm RPR S/N/AX/GEN/TRNK2.6-7.5C M [facility] Start: 04-06-[address] [facility] Start: 04-06-2025 End: 04-06-[address] [facility] Start: 12-09-2024 HPV TESTING HPV TESTING [facility] Start: 12-09-2024 PAP TESTING PAP TESTING [facility] Start: 07-13-2024 Mammography [facility] Start: 07-27-2023 Influenza vaccination [facility] Start: 01-10-[address] [facility] Start: 11-26-2022 DEPRESSION ASSESSMENT DEPRESSION ASSESSMENT [facility] Start: 11-01-2022 Procedure Education Eprescribed prescriptions (G8553) [facility] Work Phone: Start: 07-27-2022 Influenza vaccination INFLUENZA (#1) [facility] Start: 03-15-2021 Procedure Education Eprescribed prescriptions (G8553) [facility]; [facility] Work Phone: Start: 03-15-2021 Provider Instructions for Treatment COVID SCREENING FORM [facility]; [facility] Work Phone: Start: 03-11-2021 Procedure Education Eprescribed prescriptions (G8553) [facility]; [facility] Work Phone: Start: 03-01-2021 Procedure Education Eprescribed prescriptions (G8553) [facility]; [facility] Work Phone: Start: 03-01-2021 Provider Instructions for Treatment [facility] Work Phone: Start: 03-01-2021 TSH Qn TSH (THYROID STIMULATING HORMONE) (88066) [facility]; [facility] Work Phone: Start: 03-01-2021 Assay of gammaglobulin iga igd igg igm each Celiac Disease Comphrehensive Profile (91842) [facility]; [facility] Work Phone: Start: 03-01-2021 Antibody borrelia burgdorferi lyme disease Lyme Disease Antibody W/ Reflex (16507) [facility]; [facility] Work Phone: Start: 03-01-2021 Comprehensive metabolic panel Metabolic Panel, Comprehensive (13030) [facility]; [facility] Work Phone: Start: 03-01-2021 Blood count complete auto&auto difrntl wbc CBC, PLATELETS & AUT DIFF (35548) [facility]; [facility] Work Phone: Start: 03-01-2021 Amylase [Catalytic activity/Vol] AMYLASE (66738) [facility]; [facility] Work Phone: Start: 03-01-2021 Assay of lipase LIPASE (41987) [facility]; [facility] Work Phone: Start: 02-22-2021 Colonoscopy COLONOSCOPY [facility] Start: 02-22-2021 COLORECTAL CANCER SCREENING COLORECTAL CANCER SCREENING [facility] Start: 04-20-2020 Procedure Education Eprescribed prescriptions (G8553) [facility]; [facility] Work Phone: Start: 04-20-2020 Provider Instructions for Treatment Follow up if no improvement or if symptoms worsen [facility]; [facility] Work Phone: Start: 06-06-2018 Provider Instructions for Treatment [facility] Work Phone: Start: 05-21-2018 Procedure Education Eprescribed prescriptions (G8553) [facility]; [facility] Work Phone: Start: 05-21-2018 Provider Instructions for Treatment Follow up if no improvement or if symptoms worsen [facility]; [facility] Work Phone: Start: 05-18-2017 Mammography MAMMOGRAM [facility] Start: 04-13-2017 Provider Instructions for Treatment Reviewed Diagnostic Tests [facility]; [facility] Work Phone: Start: 03-27-2017 Comprehensive metabolic panel METABOLIC PANEL, COMPREHENSIVE (81909) [facility]; [facility] Work Phone: Start: 03-27-2017 Patient Education Superficial Thrombophlebitis *: blood clot [facility]; [facility] Work Phone: Start: 03-27-2017 Procedure Education Eprescribed prescriptions (G8553) [facility]; [facility] Work Phone: Start: 03-27-2017 Provider Instructions for Treatment Follow up if no improvement or if symptoms worsen [facility]; [facility] Work Phone: Start: 03-27-2017 Fibrin dgradj products d-dimer quantitative D-Dimer (28156) [facility]; [facility] Work Phone: Comment on above: STAT Start: 10-05-2016 Provider Instructions for Treatment [facility]; [facility] Work Phone: Start: 09-05-2016 Provider Instructions for Treatment [facility] Work Phone: Start: 01-19-2016 Provider Instructions for Treatment Follow up in 7 weeks- std process fu [facility]; [facility] Work Phone: Start: 12-06-2015 Provider Instructions for Treatment Continue Current Prescription(s) [facility]; [facility] Work Phone: Start: 11-04-2015 Patient Education Anxiety: emotional health [facility]; [facility] Work Phone: Start: 11-04-2015 Procedure Education Eprescribed prescriptions (G8553) [facility]; [facility] Work Phone: Start: 11-04-2015 Provider Instructions for Treatment Follow up in 6 weeks- sp fu 30 min [facility]; [facility] Work Phone: Start: 10-20-2015 Patient Education Anxiety: anxiety [facility]; [facility] Work Phone: Start: 10-20-2015 Procedure Education Eprescribed prescriptions (G8553) [facility]; [facility] Work Phone: Start: 10-20-2015 Provider Instructions for Treatment Follow up in 2-3 weeks [facility]; [facility] Work Phone: Start: 01-28-2015 Provider Instructions for Treatment Reviewed Stucco Mason Letter: dr jung and mri ordered [facility]; [facility] Work Phone: Start: 2014 SHINGRIX VACCINE (1 of 2) SHINGRIX VACCINE (1 of 2) [facility] Start: 03-06-2014 Provider Instructions for Treatment Follow up if no improvement or if symptoms worsen [facility]; [facility] Work Phone: Start: 01-09-2014 Provider Instructions for Treatment Reviewed Stucco Mason Letter [facility]; [facility] Work Phone: Start: 04-30-2013 Provider Instructions for Treatment Follow up if no improvement or if symptoms worsen [facility]; [facility] Work Phone: Start: 04-02-2013 Provider Instructions for Treatment Follow up in 2 weeks [facility]; [facility] Work Phone: Start: 04-15-2012 C-reactive protein C-Reactive Protein (15788) [facility]; [facility] Work Phone: Start: 04-15-2012 CRP [Mass/Vol] C-Reactive Protein (10572) [facility]; [facility] Work Phone: Start: 04-15-2012 25 hydroxy includes fractions if performed CALCIFEDIOL (28767) [facility]; [facility] Work Phone: Start: 04-12-2012 Comprehensive metabolic panel Metabolic Panel, Comprehensive (01924) [facility]; [facility] Work Phone: Start: 04-12-2012 Assay of thyroid stimulating hormone tsh TSH (47068) [facility]; [facility] Work Phone: Start: 04-12-2012 TSH Qn TSH (40275) [facility]; [facility] Work Phone: Start: 04-12-2012 Blood count manual cell count each CBC WITH MANUAL DIFF (91024) [facility]; [facility] Work Phone: Start: 04-12-2012 Provider Instructions for Treatment [facility]; [facility] Work Phone: Start: 02-05-2012 Provider Instructions for Treatment [facility]; [facility] Work Phone: Start: 01-17-2012 Provider Instructions for Treatment Follow up in 2 weeks [facility]; [facility] Work Phone: Start: 01-17-2012 Cyclic citrullinated peptide antibody CCP ANTIBODY (39954) [facility]; [facility] Work Phone: Start: 11-08-2011 Provider Instructions for Treatment [facility]; [facility] Work Phone: Start: 11-08-2011 Hpv, dna, amp probe HUMAN PAPILVS, NUCLEIC ACID AMPL PROBE (16841) [facility]; [facility] Work Phone: Start: 11-08-2011 Iadna neisseria gonorrhoeae amplified probe tq NEISSERIA (45934) (THIN PREP OBTAINED) [facility]; [facility] Work Phone: Start: 11-08-2011 I[place]na chlamydia trachomatis amplified probe tq CHLAMYDIA (26712) (thin prep obtained) [facility]; [facility] Work Phone: Start: 11-08-2011 [place] trichomonas vaginalis direct probe tq INFCT ANTGN TRICH VAGIN DIRECT PRB (93473) [facility]; [facility] Work Phone: Start: 11-08-2011 [place] steff species direct probe tq STEFF, NUCLEIC ACID DIRECT PROBE (56049) [facility]; [facility] Work Phone: Start: 11-08-2011 Cytp cerv/vag auto thin layer prep mnl screen Thin prep Pap (09418) (no STD testing) [facility]; [facility] Work Phone: Start: 03-20-2011 Sedimentation rate rbc non-automated Sed Rate Erythrocyte (00689) [facility]; [facility] Work Phone: Start: 03-20-2011 Fibrin dgradj products d-dimer quantitative D-Dimer (39189) [facility]; [facility] Work Phone: Start: 11-14-2010 Comprehensive metabolic panel METABOLIC PANEL, COMPREHENSIVE (87799) [facility]; [facility] Work Phone: Start: 11-14-2010 Assay of thyroid stimulating hormone tsh TSH (70808) [facility]; [facility] Work Phone: Start: 11-14-2010 TSH Qn TSH (22422) [facility]; [facility] Work Phone: Start: 11-14-2010 Lipoprotein blood estiven numbers & subclasses LIPOPROTEIN, BLD, BY NMR (09344) [facility]; [facility] Work Phone: Start: 11-14-2010 Protein [Mass/Vol] LIPOPROTEIN, BLD, BY NMR (03929) [facility]; [facility] Work Phone: Start: 11-03-2010 Provider Instructions for Treatment [facility]; [facility] Work Phone: Start: 10-28-2010 Provider Instructions for Treatment FOLLOW UP - MAKE APPT AFTER DIAGNOSTIC TESTS [facility]; [facility] Work Phone: Start: 10-28-2010 Assay of thyroid stimulating hormone tsh TSH (29895) [facility]; [facility] Work Phone: Start: 10-28-2010 C-reactive protein C-REACTIVE PROTEIN (98899) [facility]; [facility] Work Phone: Start: 10-28-2010 CRP [Mass/Vol] C-REACTIVE PROTEIN (25397) [facility]; [facility] Work Phone: Start: 10-28-2010 Cyclic citrullinated peptide antibody CCP ANTIBODY (48408) [facility]; [facility] Work Phone: Start: 10-28-2010 Rheumatoid factor quantitative RHEUMATOID FACTOR-QUANT (23729) [facility]; [facility] Work Phone: Start: 10-28-2010 Sedimentation rate rbc non-automated SED RATE ERYTHROCYTE (64643) [facility]; [facility] Work Phone: Start: 10-28-2010 TSH Qn TSH (78330) [facility]; [facility] Work Phone: Start: 10-28-2010 Antinuclear antibodies wilfred WILFRED (ANTINUCLEAR ANTIBODY) (62145) [facility]; [facility] Work Phone: Start: 10-28-2010 Blood count manual cell count each CBC WITH MANUAL DIFF (60301) [facility]; [facility] Work Phone: Start: 10-28-2010 Comprehensive metabolic panel METABOLIC PANEL, COMPREHENSIVE (58002) [facility] Work Phone: Start: 10-28-2010 Nuclear Ab IF (S) [Titer] WILFRED (ANTINUCLEAR ANTIBODY) (18212) [facility]; [facility] Work Phone: Start: 2009 COLOGUARD (FIT-DNA) COLOGUARD (FIT-DNA) [facility] Start: [address] COLONOGRAPHY [facility] Start: 2009 DIABETES SCREEN DIABETES SCREEN [facility] Start: 2009 Diabetes Screening Diabetes Screening [facility] Start: 2009 FECAL OCCULT BLOOD FECAL OCCULT BLOOD [facility] Start: 2009 Lipid 1996 panel - Serum or Plasma Lipid Screening [facility] Start: 2009 LIPID SCREEN LIPID SCREEN [facility] Start: 2009 SIGMOIDOSCOPY SIGMOIDOSCOPY [facility] Start: 1983 Urine microalbumin profile [facility] Start: 1982 ANNUAL PCP TEAM CHRONIC DISEASE VISIT ANNUAL PCP TEAM CHRONIC DISEASE VISIT [facility] Start: 1982 HEPATITIS C SCREENING HEPATITIS C SCREENING [facility] Start: 1982 HIV SCREENING HIV SCREENING [facility] Start: 1982 SPIROMETRY SPIROMETRY [facility] Start: 1970 PNEUMOCOCCAL (1 - PCV) PNEUMOCOCCAL (1 - PCV) [facility] ic Start: 1970 Pneumococcal vaccination Pneumococcal Vaccine (1 - PCV) [facility] Start: 1964 COVID-19 VACCINE (#1) COVID-19 VACCINE (#1) [facility] Start: 1964 HEPATITIS B (1 of 3 - 3-dose series) HEPATITIS B (1 of 3 - 3-dose series) [facility] 24 Hour ECG [facility] Dehydroepiandrostero ne sulfate (DHEA-S) [Mass/volume] in Serum or Plasma [facility] Endometrial bx w/wo endocervix bx w/o dilat spx ENDOMETRIAL BIOPSY Procedures Routine PMB (postmenopausal bleeding) Ordered: 01/12/2023 [facility] Work Phone: Comment on above: Ordered: 01/12/2023 Endometrial bx w/wo endocervix bx w/o dilat spx ENDOMETRIAL BIOPSY Procedures Routine PMB (postmenopausal bleeding) Thickened endometrium Ordered: 03/29/2023 [facility] Work Phone: Comment on above: Ordered: 03/29/2023 End: 04-27-2024 KAUSHIK SCREENING W JIMMY KAUSHIK SCREENING W JIMMY Radiology Routine Encounter for screening mammogram for malignant neoplasm of breast 1 Occurrences starting 03/29/2023 until 04/27/2024 [facility] Work Phone: Comment on above: 1 Occurrences starting 03/29/2023 until 04/27/2024 PAP TEST PAP TEST Lab Rou laxmi PMB (postmenopausal bleeding) Encounter for screening for malignant neoplasm of cervix Special screening examination for human papillomavirus (HPV) 03/29/2023 11:55 AM EDT [facility] Work Phone: Patient Education ED Asthma, Acu te (Adult) [facility] Work Phone: Patient referral [facility] Work Phone: SURGICAL PATHOLOGY SURGICAL PATH OLOGY Lab Routine PMB (postmenopausal bleeding) Thickened endometrium 03/29/2023 11:55 AM EDT [facility] Work Phone: End: 02-11-2024 Us pelvic nonobstetric image dcmtn limited/f/u US FEMALE PELVIS TRANSABD LTD Radiology Routine PMB (postmenopausal bleeding) 1 Occurrences starting 01/12/2023 until 02/11/2024 [facility] Work Phone: Comment on above: 1 Occurrences starting 01/12/2023 until 02/11/2024 End: 02-11-2024 Us transvaginal US FEMALE PELVIS TRANSVAG Radiology Routine PMB (postmenopausal bleeding) 1 Occurrences starting 01/12/2023 until 02/11/2024 [facility] Work Phone: Comment on above: 1 Occurrences starting 01/12/2023 until 02/11/2024 [facility] Work Phone: [facility]; [facility] Work Phone: [facility]; [facility] Work Phone: [facility]; [facility] Work Phone: [facility]; [facility] Work Phone: [facility]; [facility] Work Phone: [facility]; [facility] Work Phone: [facility]; [facility] Work Phone: [facility] Work Phone: [facility]; [facility] Work Phone: [facility] Work Phone: [facility] Work Phone: [facility] Work Phone: [facility] Work Phone: [facility]; [facility] Work Phone: [facility]; [facility] Work Phone: [facility]; [facility] Work Phone: [facility]; [facility] Work Phone: [facility]; [facility] Work Phone: [facility]; [facility] Work Phone: [facility]; [facility] Work Phone: [facility]; [facility] Work Phone: [facility]; [facility] Work Phone: [facility] Payers Date Payer Category Payer Private Health Insurance [id number] 2024 Self-pay [id number] 2024 Private Health Insurance [id number] 2020 Private Health Insurance [id number] 2017 Private Health Insurance [id number] 2017 Private Health Insurance [id number] 2015 Unknown [id number] 2006 Unknown [id number] 2004 Unknown [id number] 1964 Unknown [id number] 1964 Unknown [id number] Private Health Insurance [id number] Private Health Insurance [id number] Unknown Cigna PPO Unknown [facility] [employer] [id number] Unknown [id number] Unknown [id number] Unknown [id number] Unknown [id number] Unknown [id number] Unknown [id number] Unknown [id number] Unknown [id number] Unknown [id number] Unknown [id number] Unknown [id number] Unknown [id number] Unknown [id number] Social History Date Type Detail Facility Start: 01-24-2023 End: 03-29-2023 Alcohol Use Alcohol Use [facility]; [facility] Work Phone: Comment on above: Occasional alcohol u se - Wine very little Water aerobics , heterosexua l Housewife 4 Tobacco use: Tobacco use: [facility]; [facility] Work Phone: Tobacco use: Tobacco use: [facility]; [facility] Work Phone: Start: 03-07-2021 End: 03-07-2021 Tobacco smoking status NHIS Unknown if ever smoked [facility] Start: 1965 Sex Assigned At Female W [facility] Start: 02-11-2016 End: 09-07-2025 Tobacco smoking status NHIS Never smoked tobacco [facility] Work Phone: Start: 02-11-2016 End: 03-29-2023 Tobacco use and exposure Smokeless tobacco non-user [facility] Work Phone: Start: 12-09-2019 End: 03-29-2023 Alcohol intake Current non-drinker of alcohol (finding) [facility] Start: 02-11-2016 End: 03-29-2023 Tobacco Comment grew up around smokers [facility] Start: 1965 Sex Assigned At Not on file C [facility] Start: 01-24-2023 End: 03-29-2023 Tobacco use panel [facility] National Score (1-10 0), lower number is lower risk 50 [facility] Clinical Notes 02-23-2016 to 09-07-2025 Note Date & Type Note Facility 09-07-[address] [facility] 09-07-2025 Discharge summary Note Date/Time September 07, 2025 4:44pm [facility] Medical Records Department [address] [place] [address] Emergency Department Summary 09/07/25 MR#: [id number] Acct: [id number] Name: VICKIE BARLOW Rep #:[id number] : 1965 60 From: Dylan Herrera DO PCP: Mary Cobb, CORE JAVA ENGINEER-C Status:RE G ER Location: ED HPI History of Present Illness Chief Complaint: Wound Narrative Narrative: Patient is a 60-year-old female with past medical atrial fibrillation, PE no longer on Xarelto per the patient, IBS, hypercholesteremia, migraines, depression who presented to the emergency department chief complaint of wound tothe right leg. States that she cut it on a cardboard box earlier today around 11 AM she states that the bleeding has stopped but she is unsure of what to do for this exactly therefore she came here to be further evaluated. Patient states that she is unsure when her last tetanus shot was. She states that she does not want one here today. [facility] Medical History Hx of pulmonary embolus Atrial fibrillation Atypical chest pain Arthralgia Frequent falls Dysphagia Anxiety Migraine Asthma Vitamin D deficiency Mitral valve prolapse Hypercholesterolemia Psoriasis IBS (irritable bowel syndrome) Diverticulitis Depression Home Medications ?Medication ?Instructions ?Recorded ?Last Taken ?Type lactobacillus combination no.8 3 3,000 mmu cells PO DA DESMOND 03/07/21 Unknown History billion cell capsule (Adult Probiotic) multivitamin (Multiple Vitamins 1 tablet PO DAILY 02/2404/05/25 History tablet) methocarbamol 500 mg tablet 500 mg PO BID PRN muscle s pasm 01/21/24 Unknown History sertraline 50 mg tablet 25 mg PO DAILY 05/16/2403/26 History acetaminophen 325 mg capsule 650 mg PO DAILY PRN fever or pain 04/06/25 04/06/25 History albuterol sulfate 2.5 mg/3 mL 2.5 mg inhalation BID LA N 04/06/25 04/06/25 History (0.083 %) solution for nebulization shortness of breat h or wheezing albuterol sulfate 90 mcg/actuation 2 puff inhalation Q 4H PRN 04/06/25 04/06/25 History aerosol inhaler shortness of breath or wheez ing metoprolol succinate 50 mg 50 mg PO DAILY 04/06/2511/19 History tablet,extended release 24 hr niacin PO DAILY 04/06/25 04/06/25 H istory soybean, fermented 50 mg capsule 50 mg PO BID 04/06/25 04/06/25 History (Nattokinase) tramadol 50 mg tablet 50 mg PO BID PRN severe pain 04/06/25 04/06/25 History rivaroxaban 20 mg tablet (Xarelto) 20 mg PO QDAY #30 t abs 05/14/25 Unknown Rx Allergy/AdvReac Type Severity Reaction Status Date / Time celecoxib (From Celebrex) Allergy Shortness Verified 09/07/25 12:51 of breath levofloxacin (From Levaquin) AdvReac Pain in Verified 09/07/25 12:51 joints Family History Mother Asthma Diabetes Heart disease Hypertension CAD (coronary artery disease) COPD (chronic obstructive pulmonary disease) Rheumatoid arthritis Sister Diabetes Heart disease Father , age 44 Sudden cardiac Myocardial infarction Surgical History s/p incision and drainage left shoulder blade abscess (~08/29/19) Detached retina S/P eye surgery S/P section Social History household members: spouse and children housing: house current occupational status: unemployed Smoking Status: Never smoker second hand exposure: Yes alcohol intake: former what type of physical activity do you participate in: none seatbelt use: always do you feel safe at home: Yes ROS ROS ED ROS Narrative Neurological: Denies any numbness, tingling Skin: Complains of cut to the right leg as noted above EXAM Physical Exam Narrative Exam Narrative: General: Patient lying in bed rest comfortably did not appear to be in acute distress Head: Atraumatic, normocephalic Eyes: PERRL bilaterally, EOMI bilateral, no conjunctival injection or Neck: Soft, supple, trachea midline Cardiovascular: Regular rate Extremities: DP pulses +2/4 in the right lower extremity, patient moving all extremities on exam Neurological: Patient following commands knew that she was at [facility] year is 2024 Skin: Patient has a skin abrasion noted to the right anterior benton and a V shaped this is more of a skin tear nothing to repair. Patient then has a proximately 4 cm laceration on the lateral aspect of her right leg. Mild oozingnoted. Const Vital Signs: 09/07/25 12:51 Temperature 96.8 F L Temperature Source Temporal Pulse Rate 89 Respiratory Rate 14 Blood Pressure 199/96 H Blood Pressure Mean 130 Pulse Ox 100 Oxygen Delivery Method Room Air MDM MDM MDM Narrative Medical decision making narrative: Patient is a 60-year-old female who presents to the emergency department the chief complaint of cut to her right leg with a laceration. On the differential diagnose includes but not limited to laceration, skin abrasion. Patient states that she does not want a tetanus shot discussed the risks of this and she statesthat she believes she will be fine. Patient had laceration repaired here in theemergency department see procedure note for separate details. She was advised to keep a very close eye on this as this was a very difficult laceration. Giventhe thinness of her skin and it tearing when trying to approximate the laceration. She is advised to keep this area dry and clean. She is vies follow-up with her doctor outpatient setting and return with worsening symptoms orconcerns. She is agreeable to plan all course concerns answered she was discharged home in stable condition. Procedure note Procedure name: Laceration repair Indication: Reduce risk of infection Location: Right anterior lateral leg 4 cm laceration Preprocedure diagnosis: Laceration Postprocedure diagnosis: Repaired laceration Informed consent was obtained prior to procedure started. Procedure: The appropriate timeout was taken. The area was prepped and draped in usual sterile fashion. Local anesthesia was achieved using 3-1/2 cc of lidocaine 1% without epinephrine. Wound was copiously irrigated. 2 4-0 Ethilon interruptedsutures were placed, however when attempting to place the first suture in the middle of the laceration and attempted to close the wound and it immediately ripped through her skin as her skin is very thin. I then attempted to place a subcutaneous stitch with Vicryl however this also ripped through her subcutaneous tissue. I then attempted to loosely approximate the ends of her laceration with interrupted sutures with 4-0 Ethilon and this was loosely approximated. I then took a 4-0 Vicryl and placed a subcutaneous stitch in the middle of the wound which slightly approximated the wound closer followed by a vertical mattress stitch in the center of the wound which then loosely approximated the wound further. I could not get the wound closed any farther aswhen attempting to do so it would just rip the skin. She was vies that she needs to keep a very close eye in this and follow-up with her doctor in outpatient setting. She is advised to return with worsening symptoms or other concerns. She is agreeable to plan all question concerns answered she was discharged home in stable condition. Estimated blood loss was less than 0.5 mL. Dressing was applied to the area andanticipatory guidance, as well as standard postprocedure care was explained. Return precautions are given. Patient Toller procedure well without any complications. Follow-up visit for suture removal and evaluation of laceration. Discharge Plan Triage Chief Complaint: Wound ED Provider: Dylan Herrera Dx/Rx/DC Orders Clinical Impression: Laceration of lower leg, right, complicated, Abrasion of leg, right, History ofIBS Prescriptions: No Action multivitamin [Multiple Vitamins] Tablet 1 tablet PO DAILY Adult Probiotic 3 billion cell capsule 3,000 mmu cells PO DAILY Patient Comments: UNSURE OF STRENGTH Rx Instructions: if flare up-tid methocarbamol 500 mg tablet 500 mg PO BID PRN (Reason: muscle spasm) sertraline 50 mg tablet 25 mg PO DAILY Xarelto 20 mg tablet 20 mg PO QDAY Qty: 30 11RF Rx Instructions: must administer with evening meal metoprolol succinate 50 mg tablet extended release 24 hr 50 mg PO DAILY albuterol sulfate 2.5 mg /3 mL (0.083 %) solution for nebulization 2.5 mg inhalation BID PRN (Reason: shortness of breath or wheezing) albuterol sulfate 90 mcg/actuation HFA aerosol inhaler 2 puff INHALATION Q4H PRN (Reason: shortness of breath or wheezing) tramadol 50 mg tablet 50 mg PO BID PRN (Reason: severe pain) Patient Comments: PT ONLY TKAES ONCE A DAY IN THE MORNING Nattokinase 50 mg capsule 50 mg PO BID acetaminophen 325 mg capsule 650 mg PO DAILY PRN (Reason: fever or pain) niacin PO DAILY Patient Comments: PT UNSURE OF STRENGTH Primary Care Provider: Mary Cobb CORE JAVA ENGINEER Referrals: Mary Cobb NP, CORE JAVA ENGINEER-C [Primary Care Provider, Family Practice] Activity Restrictions/Additional Instructions: Keep the area dry and clean and keep a very close eye on this wound and watch out for signs infection such as surrounding redness or purulent drainage if thisis to occur you need to call your doctor or return to the emergency department immediately. Follow-up your doctor within the next few days your sutures will need to come out in approximately 10 days. Return with worsening symptoms or any other concerns Print Language: Mosotho Disposition Disposition: Home, Self Care What to do if you have Problems For any increased pain, shortness of breath, bleeding, nausea or vomiting, chestpain, or any unexpected problems, contact your Primary Care Provider. Call [facility] ([phone]) or report to the closest Emergency Room. Call 911 if necessary. 09/07/25 1644 <Electronically signed by Dylan Herrera DO> Cosigner Signature (if applicable): CC: CORE JAVA ENGINEER-C Mary Cobb ~ Signed [facility] Work Phone: [phone]) 336-945406-19-2025 Evaluation note* Diagnosis Onset Date Resolution Status Admit Date Atrial fibrillation acute May 14, 2025 1:42pm Elevated blood pressure reading acut e May 14, 2025 1:42pm Hx of pulmonary embolus acute J [facility] 2024 1:42pm [facility] Work Phone: 1(493) 688-178705-12-2025 Discharge summary [facility] Medical Records Department [address] [place] [address] Emergency Department Summary 04/06/25 MR#: [id number] Acct: [id number] Name: VICKIE BARLOW Rep #:[id number] : 1965 59 From: Shawn Soni MD PCP: LYNDSEY Wood Status:RE G ER Location: ED HPI History of Present Illness Chief Complaint: Shortness of Breath Informant: patient Narrative Narrative: 59-year-old female history of mild intermittent asthma states she has been dealing with pneumonia for the past month and being cared for down in [place]. She was on antibiotics for a while but still was having issues, so now she is onday #610 of compounded nebulized meropenem for this. She has an albuterol inhaler that she is using for rescue, she started getting short of breath/wheezyyesterday with some coughing with bronchospasm and mild chest tightness the day or 2 before that. No fevers orchills. Cough is occasionally productive. No blood. No change in chronic leg swelling. She had a blood clot in her lung a year ago, she was anticoagulated on Eliquis but has since been removed from thatand never really has not been having dyspnea with exertion. However since yesterday she is wheezing a lot and it is worse. She went to her PCP today and due to this had a D-dimer. It is elevated. She states the dyspnea was better when she used her albuterol inhaler but not enough to be asymptomati c. She states she does not get asthma flareups very often but has been diagnosed with asthma since she was young. [facility] Medical History Hx of pulmonary embolus Atrial fibrillation Atypical chest pain Arthralgia Frequent falls Dysphagia Anxiety Migraine Asthma Vitamin D deficiency Mitral valve prolapse Hypercholesterolemia Psoriasis IBS (irritable bowel syndrome) Diverticulitis Depression Home Medications ?Medication ?Instructions ?Recorded ?Last Taken ?Type lactobacillus combination no.8 3 3,000 mmu cells PO DA DESMOND 03/07/21 Unknown History billion cell capsule (Adult Probiotic) multivitamin (Multiple Vitamins 1 tablet PO DAILY 02/2404/05/25 History tablet) methocarbamol 500 mg tablet 500 mg PO BID PRN muscle s pasm 01/21/24 Unknown History sertraline 50 mg tablet 25 mg PO DAILY 05/16/2403/26 History MEROPENEM BID 04/06/25 Unknown History acetaminophen 325 mg capsule 650 mg PO DAILY PRN fever or pain 04/06/25 04/06/25 History albuterol sulfate 2.5 mg/3 mL 2.5 mg inhalation BID LA N 04/06/25 04/06/25 History (0.083 %) solution for nebulization shortness of breat h or wheezing albuterol sulfate 90 mcg/actuation 2 puff inhalation Q 4H PRN 04/06/25 04/06/25 History aerosol inhaler shortness of breath or wheez ing meloxicam 7.5 mg tablet 7.5 mg PO DAILY 04/06/2510/20 History metoprolol succinate 50 mg 50 mg PO DAILY 04/06/2511/19 History tablet,extended release 24 hr niacin PO DAILY 04/06/25 04/06/25 H istory prednisone 20 mg tablet 40 mg (2 x 20 mg) PO DAILY 6 days 04/06/25 Unknown Rx #12 tabs soybean, fermented 50 mg capsule 50 mg PO BID 04/06/25 04/06/25 History (Nattokinase) tramadol 50 mg tablet 50 mg PO BID PRN severe pain 04/06/25 04/06/25 History Allergy/AdvReac Type Severity Reaction Status Date / Time celecoxib (From Celebrex) Allergy Shortness Verified 04/06/25 12:49 of breath levofloxacin (From Levaquin) AdvReac Pain in Verified 04/06/25 12:49 joints Family History Mother Asthma Diabetes Heart disease Hypertension CAD (coronary artery disease) COPD (chronic obstructive pulmonary disease) Rheumatoid arthritis Sister Diabetes Heart disease Father , age 44 Sudden cardiac Myocardial infarction Surgical History s/p incision and drainage left shoulder blade abscess (~08/29/19) Detached retina S/P eye surgery S/P section Social History household members: spouse and children housing: house current occupational status: unemployed Smoking Status: Never smoker second hand exposure: Yes alcohol intake: former what type of physical activity do you participate in: none seatbelt use: always do you feel safe at home: Yes ROS ROS ED Constitutional Constitutional ED: Denies chills or fever(s) Eyes Eyes: Denies change in vision or diplopia ENT ENT ED: Denies rhinorrhea or sore throat Cardiovascular Cardiovascular: Reports easily tiring during activity; Denies chest pain, orthostatic symptoms, palpitations or syncope Respiratory/Chest Respiratory/Chest: Reports as per HPI, chest tightness, cough, dyspnea, dyspnea on exertion and wheezing Gastrointestinal Gastrointestinal: Denies abdominal pain, diarrhea, nausea or vomiting Genitourinary Genitourinary ED: Denies dysuria or hematuria Musculoskeletal Musculoskeletal: Denies back pain or neck pain Integumentary Denies abscess or rash Neurologic Neurologic: Denies headache(s), paresthesias or weakness Psychiatric Psychiatric: Denies suicidal thoughts EXAM Physical Exam Const Vital Signs: 04/06/25 12:49 04/06/25 13:42 04/06/25 15:27 Temperature 97.9 F Temperature Source Oral Pulse Rate 106 H 99 110 H Respiratory Rate 22 H 18 16 Respiratory Pattern Blood Pressure 164/97 H Blood Pressure Mean 119 Pulse Ox 98 97 Oxygen Delivery Method Room Air Room Air 04/06/25 15:35 04/06/25 18:07 04/06/25 19:00 Temperature 97.9 F 97.9 F Temperature Source Oral Oral Pulse Rate 90 92 94 Respiratory Rate 22 H 15 17 Respiratory Pattern Blood Pressure 140/85 H 104/66 100/68 Blood Pressure Mean 103 78 78 Pulse Ox 100 99 97 Oxygen Delivery Method Room Air Room Air Room Air 04/06/25 20:00 04/06/25 20:04 Temperature Temperature Source Pulse Rate 89 68 Respiratory Rate 16 18 Respiratory Pattern Normal Blood Pressure 105/62 Blood Pressure Mean 76 Pulse Ox 97 Oxygen Delivery Method Room Air Positive well nourished, well developed and obese General Appearance ED: well developed and NAD Nutritional Appearance: obese HEENT Reports moist mucous membranes normocephalic and atraumatic Eyes PERRL and EOMs intact bilaterally Neck full ROM, no lymphadenopathy, supple and no meningeal signs Resp normal respiratory effort Resp Narrative: Diffuse expiratory wheezes symmetric bilaterally. Converses in full sentences. Cardio regular rate, regular rhythm and no murmurs Rate: Negative for tachycardic GI non-tender and non-distended Auscultation: normoactive bowel sounds Palpation: soft Back/Spine no CVA tenderness General Back: other FROM Extremity normal to inspection General Extremety ED: Yes edema; Negative for pulses abnormal or tenderness General Extremity: edema bilateral lower extremity; Negative for pulses abnormal Neuro oriented x3, CN's II-XII intact bilaterally and no sensory deficits noted Sensorium / Orientation: awake and alert Motor Exam: strength 5/5 throughout Psych mental status grossly normal Skin no rashes or lesions noted and no wounds MDM MDM MDM Narrative Medical decision making narrative: I reviewed her old labs showing elevated D-dimer. Her labs here are unremarkable except for mildly nonspecifically elevated troponin 28. Two-view chestx-ray is normal in my interpretation radiology was in agreement. Given this I also added a proBNP and sent her for CT angiography of the chest to evaluate forPE, as this workup was started as an outpatient, but I think this is more consistent with an asthma exacerbation. Given this while getting these tests wegave her a series of nebulizer treatments and Solu-Medrol IV. She has significant improvement after the nebulizer treatment. Repeat troponins are similar to the prior reading. On my interpretation of the CTA is normal. No PE, no pneumonia. Radiology in agreement. Her proBNP is elevated 2830, she does not appear to be in acute congestive heart failure on the imaging, this maybe due to a different reason such as pulmonary hypertension,valvular insufficiency along with cardiac/myocardial strain, she may need an outpatient echo but I do not think she needs that emergently. I am going to put her on a short burst of prednisone and have her follow-up with her primary care she is comfortable with that plan. History & Record Review Additional record(s) reviewed:: Prior labs (D-dimer elevated 1.66) Lab Data Attestation: I reviewed the patient's lab results. Labs: Laboratory Results - last 24 hr 04/06/25 04/06/25 04/06/25 13:38 16:15 18:30 WBC 6.8 RBC 4.28 Hgb 13.3 Hct 40.6 MCV 94.9 MCH 31.1 MCHC 32.8 RDW Std Deviation 48.0 H RDW Coeff of Merlyn 13.8 Plt Count 247 MPV 10.1 Immature Gran % (Auto) 0.100 Neut % (Auto) 72.3 H Lymph % (Auto) 10.9 L [place] % (Auto) 9.6 Eos % (Auto) 6.1 H Baso % (Auto) 1.0 Absolute Neuts (auto) 4.9 Absolute Lymphs (auto) 0.74 L Nucleated RBC % 0 Sodium 138 Potassium 4.6 Chloride 104 Carbon Dioxide 21.6 Anion Gap 13 BUN 15 Creatinine 0.74 Estim Creat Clear Calc 101.59 Est GFR (MDRD) Non-Af 93 BUN/Creatinine Ratio 20.0 Glucose 99 Calcium 9.2 Troponin T High Sens 28 H Troponin T Hi Sens 2 Hr 23 H Troponin T Hi Sens 4Hr 29 H NT pro BNP II 2830 H Radiography Diagnostic Testing: Clinical Impression(s) from Imaging Studies Chest X-Ray 04/06/25 13:38 IMPRESSION: No acute process is identified in the chest. Reading Location: [facility] Chest CTA 04/06/25 15:11 IMPRESSION: No pulmonary embolism is identified. Some of the distal pulmonary arteries cannot be evaluated due to suboptimal opacification. Reading Location: [facility] Rhythm Strip Rhythm Strip: Sinus Rhythm Rate: 95 Ectopy: None EKG Initial EKG: Attestation: I personally reviewed and interpreted this EKG as follows: Interpretation: No Acute Injury Pattern and Atrial Fibrillation (Otherwiseunremarkable EKG. Narrow complex. Normal intervals and axis.) Prior EKG tracings: available for review Prior: Unchanged Discharge Plan Triage Chief Complaint: Shortness of Breath ED Provider: Shawn Soni Dx/Rx/DC Orders Clinical Impression: Acute asthma exacerbation Instructions: ED Asthma, Acute (Adult) Prescriptions: New prednisone 20 mg tablet 40 mg PO DAILY 6 Days Qty: 12 0RF No Action multivitamin [Multiple Vitamins] Tablet 1 tablet PO DAILY Adult Probiotic 3 billion cell capsule 3,000 mmu cells PO DAILY Patient Comments: UNSURE OF STRENGTH Rx Instructions: if flare up-tid methocarbamol 500 mg tablet 500 mg PO BID PRN (Reason: muscle spasm) sertraline 50 mg tablet 25 mg PO DAILY meloxicam 7.5 mg tablet 7.5 mg PO DAILY Patient Comments: PT TAKES AT BEDTIME metoprolol succinate 50 mg tablet extended release 24 hr 50 mg PO DAILY albuterol sulfate 2.5 mg /3 mL (0.083 %) solution for nebulization 2.5 mg inhalation BID PRN (Reason: shortness of breath or wheezing) albuterol sulfate 90 mcg/actuation HFA aerosol inhaler 2 puff INHALATION Q4H PRN (Reason: shortness of breath or wheezing) tramadol 50 mg tablet 50 mg PO BID PRN (Reason: severe pain) Patient Comments: PT ONLY TKAES ONCE A DAY IN THE MORNING Nattokinase 50 mg capsule 50 mg PO BID acetaminophen 325 mg capsule 650 mg PO DAILY PRN (Reason: fever or pain) niacin PO DAILY Patient Comments: PT UNSURE OF STRENGTH MEROPENEM 200 mg inhaler BID Rx Instructions: TAKING A COMPOUNDED INHALATION; MEROPENEM 200MG/4ML INHALATION SYRINGE TWICE A DAY. Primary Care Provider: Mary Cobb NP Referrals: Mary Cobb CORE JAVA ENGINEER, CORE JAVA ENGINEER-C [Primary Care Provider] - 3-5 Days if not improving Print Language: Mosotho Disposition Disposition: Home, Self Care What to do if you have Problems For any increased pain, shortness of breath, bleeding, nausea or vomiting, chestpain, or any unexpected problems, contact your Primary Care Provider. Call [facility] ([phone]) or report tothe closest Emergency Room. Call 911 if necessary. 04/06/252128 Cosigner Signature (if applicable): CC: CORE JAVA ENGINEER-C Mary Cobb ~ Signed [facility]05-12-2025 Radiology Diagnostic study note [facility] Imaging Services [address] [place] [address] CTA Chest W/WO Contrast MR#: [id number] Acct: [id number] Name: VICKIE BARLOW Rep #: [id number] : 1965 F 59 From: Anne Bartlett MD PCP: LYNDSEY Wood Status: RE G ER Study:CTA Chest W/WO Contrast Date of Exam: 04/06/25 Exam# [id number] Ordering Dr: Richard Soni MD EXAM: CT Angiography Chest Without and With Intravenous Contrast CLINICAL INDICATION: SOB, ELEVATED D-DIMER TECHNIQUE: Axial computed tomographic angiography images of the chest without and with intravenous contrast. This CT exam was performed using one or more of the following dose reduction techniques: automated exposure control,adjustment of the mA and/or kV according to patient size, and/or use of iterative reconstruction technique. MIP reconstructed images were created and reviewed. COMPARISON: No relevant prior studies available. FINDINGS: LIMITATIONS: Suboptimal opacification of the pulmonary arteries. PULMONARY ARTERIES: No pulmonary embolism is identified. Some of the distal pulmonary arteries cannot be evaluated due to suboptimal opacification. AORTA: No acute findings. No thoracic aortic aneurysm. LUNGS AND PLEURAL SPACES: Unremarkable. No mass. No consolidation. No significant effusion. No pneumothorax. HEART: Unremarkable. No cardiomegaly. No significant pericardial effusion. No evidence of RV dysfunction. BONES/JOINTS: No acute fracture. No dislocation. SOFT TISSUES: Unremarkable. LYMPH NODES: Unremarkable. No enlarged lymph nodes. CT/CTA Chest W/WO Contrast IMPRESSION: No pulmonary embolism is identified. Some of the distal pulmonary arteries cannot be evaluated due to suboptimal opacification. Reading Location: [facility] CC: CORE JAVA ENGINEER-C Mary Cobb; Dr. Shawn Soni MD ~ Golf Ball Cover Treater: Signed [facility]05-12-2025 Discharge summary Author Shawn Soni [facility] Note Date/Time April 06, 2025 9:29p m [facility] Medical Records Department [address] [place] [address] Emergency Department Summary 04/06/25 MR#: [id number] Acct: [id number] Name: VICKIE BARLOW Rep #:[id number] : 1965 59 From: Shawn Soni MD PCP: LYNDSEY Wood Status:RE G ER Location: ED HPI History of Present Illness Chief Complaint: Shortness of Breath Informant: patient Narrative Narrative: 59-year-old female history of mild intermittent asthma states she has been dealing with pneumonia for the past month and being cared for down in [place]. She was on antibiotics for a while but still was having issues, so now she is onday #05/05 of compounded nebulized meropenem for this. She has an albuterol inhaler that she is using for rescue, she started getting short of breath/wheezyyesterday with some coughing with bronchospasm and mild chest tightness the day or 2 before that. No fevers or chills. Cough is occasionally productive. No blood. No change in chronic leg swelling. She had a blood clot in her lung a year ago, she was anticoagulated on Eliquis but has since been removed from thatand never really has not been having dyspnea with exertion. However since yesterday she is wheezing a lot and it is worse. She went to her PCP today and due to this had a D-dimer. It is elevated. She states the dyspnea was better when she used her albuterol inhaler but not enough to be asymptomatic. She states she does not get asthma flareups very often but has been diagnosed with asthma since she was young. [facility] Medical History Hx of pulmonary embolus Atrial fibrillation Atypical chest pain Arthralgia Frequent falls Dysphagia Anxiety Migraine Asthma Vitamin D deficiency Mitral valve prolapse Hypercholesterolemia Psoriasis IBS (irritable bowel syndrome) Diverticulitis Depression Home Medications ?Medication ?Instructions ?Recorded ?Last Taken ?Type lactobacillus combination no.8 3 3,000 mmu cells PO DA DESMOND 03/07/21 Unknown History billion cell capsule (Adult Probiotic) multivitamin (Multiple Vitamins 1 tablet PO DAILY 02/2404/05/25 History tablet) methocarbamol 500 mg tablet 500 mg PO BID PRN muscle s pasm 01/21/24 Unknown History sertraline 50 mg tablet 25 mg PO DAILY 05/16/2403/26 History MEROPENEM BID 04/06/25 Unknown History acetaminophen 325 mg capsule 650 mg PO DAILY PRN fever or pain 04/06/25 04/06/25 History albuterol sulfate 2.5 mg/3 mL 2.5 mg inhalation BID LA N 04/06/25 04/06/25 History (0.083 %) solution for nebulization shortness of breat h or wheezing albuterol sulfate 90 mcg/actuation 2 puff inhalation Q 4H PRN 04/06/25 04/06/25 History aerosol inhaler shortness of breath or wheez ing meloxicam 7.5 mg tablet 7.5 mg PO DAILY 04/06/2510/20 History metoprolol succinate 50 mg 50 mg PO DAILY 04/06/2511/19 History tablet,extended release 24 hr niacin PO DAILY 04/06/25 04/06/25 H istory prednisone 20 mg tablet 40 mg (2 x 20 mg) PO DAILY 6 days 04/06/25 Unknown Rx #12 tabs soybean, fermented 50 mg capsule 50 mg PO BID 04/06/25 04/06/25 History (Nattokinase) tramadol 50 mg tablet 50 mg PO BID PRN severe pain 04/06/25 04/06/25 History Allergy/AdvReac Type Severity Reaction Status Date / Time celecoxib (From Celebrex) Allergy Shortness Verified 04/06/25 12:49 of breath levofloxacin (From Levaquin) AdvReac Pain in Verified 04/06/25 12:49 joints Family History Mother Asthma Diabetes Heart disease Hypertension CAD (coronary artery disease) COPD (chronic obstructive pulmonary disease) Rheumatoid arthritis Sister Diabetes Heart disease Father , age 44 Sudden cardiac Myocardial infarction Surgical History s/p incision and drainage left shoulder blade abscess (~08/29/19) Detached retina S/P eye surgery S/P section Social History household members: spouse and children housing: house current occupational status: unemployed Smoking Status: Never smoker second hand exposure: Yes alcohol intake: former what type of physical activity do you participate in: none seatbelt use: always do you feel safe at home: Yes ROS ROS ED Constitutional Constitutional ED: Denies chills or fever(s) Eyes Eyes: Denies change in vision or diplopia ENT ENT ED: Denies rhinorrhea or sore throat Cardiovascular Cardiovascular: Reports easily tiring during activity; Denies chest pain, orthostatic symptoms, palpitations or syncope Respiratory/Chest Respiratory/Chest: Reports as per HPI, chest tightness, cough, dyspnea, dyspnea on exertion and wheezing Gastrointestinal Gastrointestinal: Denies abdominal pain, diarrhea, nausea or vomiting Genitourinary Genitourinary ED: Denies dysuria or hematuria Musculoskeletal Musculoskeletal: Denies back pain or neck pain Integumentary Denies abscess or rash Neurologic Neurologic: Denies headache(s), paresthesias or weakness Psychiatric Psychiatric: Denies suicidal thoughts EXAM Physical Exam Const Vital Signs: 04/06/25 12:49 04/06/25 13:42 04/06/25 15:27 Temperature 97.9 F Temperature Source Oral Pulse Rate 106 H 99 110 H Respiratory Rate 22 H 18 16 Respiratory Pattern Blood Pressure 164/97 H Blood Pressure Mean 119 Pulse Ox 98 97 Oxygen Delivery Method Room Air Room Air 04/06/25 15:35 04/06/25 18:07 04/06/25 19:00 Temperature 97.9 F 97.9 F Temperature Source Oral Oral Pulse Rate 90 92 94 Respiratory Rate 22 H 15 17 Respiratory Pattern Blood Pressure 140/85 H 104/66 100/68 Blood Pressure Mean 103 78 78 Pulse Ox 100 99 97 Oxygen Delivery Method Room Air Room Air Room Air 04/06/25 20:00 04/06/25 20:04 Temperature Temperature Source Pulse Rate 89 68 Respiratory Rate 16 18 Respiratory Pattern Normal Blood Pressure 105/62 Blood Pressure Mean 76 Pulse Ox 97 Oxygen Delivery Method Room Air Positive well nourished, well developed and obese General Appearance ED: well developed and NAD Nutritional Appearance: obese HEENT Reports moist mucous membranes normocephalic and atraumatic Eyes PERRL and EOMs intact bilaterally Neck full ROM, no lymphadenopathy, supple and no meningeal signs Resp normal respiratory effort Resp Narrative: Diffuse expiratory wheezes symmetric bilaterally. Converses in full sentences. Cardio regular rate, regular rhythm and no murmurs Rate: Negative for tachycardic GI non-tender and non-distended Auscultation: normoactive bowel sounds Palpation: soft Back/Spine no CVA tenderness General Back: other FROM Extremity normal to inspection General Extremety ED: Yes edema; Negative for pulses abnormal or tenderness General Extremity: edema bilateral lower extremity; Negative for pulses abnormal Neuro oriented x3, CN's II-XII intact bilaterally and no sensory deficits noted Sensorium / Orientation: awake and alert Motor Exam: strength 5/5 throughout Psych mental status grossly normal Skin no rashes or lesions noted and no wounds MDM MDM MDM Narrative Medical decision making narrative: I reviewed her old labs showing elevated D-dimer. Her labs here are unremarkable except for mildly nonspecifically elevated troponin 28. Two-view chestx-ray is normal in my interpretation radiology was in agreement. Given this I also added a proBNP and sent her for CT angiography of the chest to evaluate forPE, as this workup was started as an outpatient, but I think this is more consistent with an asthma exacerbation. Given this while getting these tests wegave her a series of nebulizer treatments and Solu-Medrol IV. She has significant improvement after the nebulizer treatment. Repeat troponins are similar to the prior reading. On my interpretation of the CTA is normal. No PE, no pneumonia. Radiology in agreement. Her proBNP is elevated 2830, she does not appear to be in acute congestive heart failure on the imaging, this maybe due to a different reason such as pulmonary hypertension, valvular insufficiency along with cardiac/myocardial strain, she may need an outpatient echo but I do not think she needs that emergently. I am going to put her on a short burst of prednisone and have her follow-up with her primary care she is comfortable with that plan. History & Record Review Additional record(s) reviewed:: Prior labs (D-dimer elevated 1.66) Lab Data Attestation: I reviewed the patient's lab results. Labs: Laboratory Results - last 24 hr 04/06/25 04/06/25 04/06/25 13:38 16:15 18:30 WBC 6.8 RBC 4.28 Hgb 13.3 Hct 40.6 MCV 94.9 MCH 31.1 MCHC 32.8 RDW Std Deviation 48.0 H RDW Coeff of Merlyn 13.8 Plt Count 247 MPV 10.1 Immature Gran % (Auto) 0.100 Neut % (Auto) 72.3 H Lymph % (Auto) 10.9 L [place] % (Auto) 9.6 Eos % (Auto) 6.1 H Baso % (Auto) 1.0 Absolute Neuts (auto) 4.9 Absolute Lymphs (auto) 0.74 L Nucleated RBC % 0 Sodium 138 Potassium 4.6 Chloride 104 Carbon Dioxide 21.6 Anion Gap 13 BUN 15 Creatinine 0.74 Estim Creat Clear Calc 101.59 Est GFR (MDRD) Non-Af 93 BUN/Creatinine Ratio 20.0 Glucose 99 Calcium 9.2 Troponin T High Sens 28 H Troponin T Hi Sens 2 Hr 23 H Troponin T Hi Sens 4Hr 29 H NT pro BNP II 2830 H Radiography Diagnostic Testing: Clinical Impression(s) from Imaging Studies Chest X-Ray 04/06/25 13:38 IMPRESSION: No acute process is identified in the chest. [facility] Chest CTA 04/06/25 15:11 IMPRESSION: No pulmonary embolism is identified. Some of the distal pulmonary arteries cannot be evaluated due to suboptimal opacification. Reading Location: [facility] Rhythm Strip Rhythm Strip: Sinus Rhythm Rate: 95 Ectopy: None EKG Initial EKG: Attestation: I personally reviewed and interpreted this EKG as follows: Interpretation: No Acute Injury Pattern and Atrial Fibrillation (Otherwiseunremarkable EKG. Narrow complex. Normal intervals and axis.) Prior EKG tracings: available for review Prior: Unchanged Discharge Plan Triage Chief Complaint: Shortness of Breath ED Provider: Shawn Soni Dx/Rx/DC Orders Clinical Impression: Acute asthma exacerbation Instructions: ED Asthma, Acute (Adult) Prescriptions: New prednisone 20 mg tablet 40 mg PO DAILY 6 Days Qty: 12 0RF No Action multivitamin [Multiple Vitamins] Tablet 1 tablet PO DAILY Adult Probiotic 3 billion cell capsule 3,000 mmu cells PO DAILY Patient Comments: UNSURE OF STRENGTH Rx Instructions: if flare up-tid methocarbamol 500 mg tablet 500 mg PO BID PRN (Reason: muscle spasm) sertraline 50 mg tablet 25 mg PO DAILY meloxicam 7.5 mg tablet 7.5 mg PO DAILY Patient Comments: PT TAKES AT BEDTIME metoprolol succinate 50 mg tablet extended release 24 hr 50 mg PO DAILY albuterol sulfate 2.5 mg /3 mL (0.083 %) solution for nebulization 2.5 mg inhalation BID PRN (Reason: shortness of breath or wheezing) albuterol sulfate 90 mcg/actuation HFA aerosol inhaler 2 puff INHALATION Q4H PRN (Reason: shortness of breath or wheezing) tramadol 50 mg tablet 50 mg PO BID PRN (Reason: severe pain) Patient Comments: PT ONLY TKAES ONCE A DAY IN THE MORNING Nattokinase 50 mg capsule 50 mg PO BID acetaminophen 325 mg capsule 650 mg PO DAILY PRN (Reason: fever or pain) niacin PO DAILY Patient Comments: PT UNSURE OF STRENGTH MEROPENEM 200 mg inhaler BID Rx Instructions: TAKING A COMPOUNDED INHALATION; MEROPENEM 200MG/4ML INHALATION SYRINGE TWICE A DAY. Primary Care Provider: Mary Cobb NP Referrals: Mary Cobb CORE JAVA ENGINEER, YONIS-C [Primary Care Provider] - 3-5 Days if not improving Print Language: Mosotho Disposition Disposition: Home, Self Care What to do if you have Problems For any increased pain, shortness of breath, bleeding, nausea or vomiting, chestpain, or any unexpected problems, contact your Primary Care Provider. Call [facility] ([phone]) or report to the closest Emergency Room. Call 911 if necessary. 04/06/252128 <Electronically signed by Shawn Soni MD> Cosigner Signature (if applicable): CC: LYNDSEY Cobb ~ Signed [facility] Work Phone: 1(664) 409-446405-12-2025 Radiology Diagnostic study note [facility] Imaging Services [address] [place] [id number] Chest PA and Lateral MR#: [id number] Acct: [id number] Name: VICKIE BARLOW Rep #: [id number] : 1965 F 59 From: Godfrey Gipson MD PCP: Mary Cobb, PAMELLAC Status: LA E ER Study:Chest PA and Lateral Date of Exam: 04/06/25 Exam# [id number] Ordering Dr: Provider ,Ed P. PROCEDURE: CHEST PA AND LATERAL 04/06/2025 REASON FOR EXAM: SOB TECHNIQUE: Frontal and lateral views of the chest. COMPARISON: None FINDINGS: Heart size and mediastinal configuration are within normal limits. There is no focal infiltrate or consolidation. There is no pneumothorax or effusion. Aortic calcifications are visible. There is no visible acute bony abnormality. RAD/Chest PA and Lateral IMPRESSION: No acute process is identified in the chest. Reading Location: [facility] CC: CORE JAVA ENGINEER-C Mary Cobb; ED PHYSICIAN PROVIDER ~ Golf Ball Cover Treater: Signed [facility]08-19-2023 Miscellaneous Notes* Letter - Coordinator, Mammography - 07/14/2023 8:12 AM EDT July 16, 2023 PID: [id number] Marilin Barlow [address] [place] [id number] Dear Ms. Barlow, We are pleased to inform you that the results of your recent breast imaging exam on 07/13/2023 are normal. Early detection of cancer is very important. We also understand recommendations regarding breast cancer screening are controversial. Please discuss with your primary care provider which strategy is best for you and whether a mammogram is right for you. Your imaging studies and report will be kept on file at [facility] as part of your permanent medical record and are available for your continuing care. Thank you for allowing us to help in meeting your health care needs. Sincerely, Dr. Clark Interpreting Radiologist [facility] (Normal over 40) documented in this encounterCleveland Clinic [facility]08-18-2023 NoteHNO ID: [id number] Author: Chanelle Wilkerson RT(Susie) Service: Radiology Author Type: Door To Door Selling Distributor Type: Progress Notes Filed: 07/13/2023 12:48 PM Note Text: Radiology Service Progress Note PATIENT NAME: Marilin Barlow DATE OF SERVICE: July 13, 2023 TIME: 12:48 PM PATIENT IDENTITY VERIFICATION COMPLETED USING TWO (2) IDENTIFIERS: Name and Date of confirmed by patient verbally. FALL SCREENING: Has the patient had 2 falls in the last year or 1 fall with injury or currently using an Ambulatory Assistive Device (Walker, Cane, Wheelchair, Crutches, etc.)? No PATIENT GENDER DATA: Female. status: : No status: NO. PATIENT RELEVANT IMPLANT DATA REVIEWED: Yes RADIOLOGY DEPARTMENT: Mammography PERIPHERAL IV DATA: Not applicable SIGNED BY: RT Armando(R) July 13, 2023 12:48 [facility]08-18-2023 History of Present illness Narrative* Chanelle Wilkerson RT(Susie) - 07/13/2023 12:50 PM EDT Radiology Service Progress Note PATIENT NAME: Marilin Barlow DATE OF SERVICE: July 13, 2023 TIME: 12:48 PM PATIENT IDENTITY VERIFICATION COMPLETED USING TWO (2) IDENTIFIERS: Name and Date of confirmedby patient verbally. FALL SCREENING: Has the patient had 2 falls in the last year or 1 fall with injury or currently using an Ambulatory Assistive Device (Walker, Cane, Wheelchair, Crutches, etc.)? No PATIENT GENDER DATA: Female. status: : No status: NO. PATIENT RELEVANT IMPLANT DATA REVIEWED: Yes RADIOLOGY DEPARTMENT: Mammography PERIPHERAL IV DATA: Not applicable SIGNED BY: RT Armando(Susie) July 13, 2023 12:48 PM documented in this encounterCleveland Clinic Foundation07-05-2023 Miscellaneous Notes* Telephone Encounter - Lydia García LPN - 05/30/2023 11:03 AM EDT Spoke with patient and she is still traveling to [place] with her for his treatments and does not know when she will be able to schedule. Patient stated that she will reach out to office when she is ready to schedule. * Telephone Encounter - Chanelle Boland RN - 04/19/2023 4:21 PM EDT Spoke with patient. Leaving for [place] in a week with for his CA treatments. If we haven't heard back from her with an update on a surgery date by 05/21/23. Please call her then. Chanelle Boland RN * Telephone Encounter - Marifer Hernandez RN - 04/18/2023 11:57 AM EDT 2nd message left for patient to return phone call * Telephone Encounter - Lydia García LPN - 04/10/2023 4:03 PM EDT Attempted to call patient. Voicemail is full. Mychart message sent with next available dates * Telephone Encounter - Aicha Moore LPN - 04/05/2023 4:22 PM EDT Spoke with pt today and she prefers [facility] but will need to figure out some weeks that work well for her as her is currently undergoing treatment for CA in [place] and she needs to look at her schedule. Aicha Moore LPN * Telephone Encounter - Marques Paul MD - 04/02/2023 3:49 PM EDT See if she has preferred weeks and or [facility] vs [facility]. See surgery sheet * Telephone Encounter - Chanelle Boland RN - 04/02/2023 3:28 PM EDT Left message for patient to call office. Surgery sheet to [facility]. Chanelle Boland RN * Telephone Encounter - Chanelle Boland RN - 04/02/2023 3:27 PM EDT ----- Message from Marques Paul MD sent at 04/02/2023 3:05 PM EDT ----- Schedule her a follow up to discuss hysteroscopy D&C and polyp resection. If she is comfortablescheduling, we can schedule and discuss in detail at preop. Need surgery sheet. Thanks. Marques Paul MD documented in this encounterCleveland [facility] Foundation05-04-2023 NoteHNO ID: [id number] Author: Marques Paul MD Service: ? Author Type: Physician Type: Progress Notes Filed: 03/29/2023 11:53 AM Note Text: Marilin is a 57 year old who presents today for an endometrial biopsy for thickening of endometrial lining. test: n/a UNIVERSAL PROTOCOL / SAFETY CHECKLIST Procedure to be Performed: EMB Sign In: A Moment of CARE was completed. Personnel directly involved with the procedure wore the appropriate PPE (Personal Protective Equipment). Patient/Surrogate Stated/Verified: PATIENT VERIFIED(optional for EMERGENT procedures): Patient name, Date of , Relevant allergies, and The intended procedure Time Out Communication: Intended patient and procedure match the source documents. Consent documented and matches the intended procedure. Relevant labs, photos, and/or imaging studies have been reviewed. No implant(s) inserted. Sign Out: SIGN OUT (optional for EMERGENT procedures): All specimen containers correctly labeled. All instruments, equipment, possible retained foreign bodies accounted for. Post-procedure follow-up management communicated and Plan of Care Visit completed when applicable. Marques Paul M.D. PROCEDURE: EXTERNAL GENITALIA: Normal in appearance without lesions VAGINA: Normal in appearance without lesions BIOPSY: Speculum placed into the vagina with excellent visualization of the cervix. Cervix cleaned with betadine. Anterior lip of cervix grasped with single toothed tenaculum. Uterus sounded to 8 cm. Pipelle inserted into the uterus without difficulty and endometrial biopsy obtained. Specimen labeled and sent to pathology. Procedure Summary: Patient tolerated procedure well. ASSESSMENT: abnormal uterine bleeding PLAN: Specimens labeled and sent to Pathology. Will notify patient of results in 1-2 weeks. Post-procedure instructions reviewed and written material given to the patient. Pap done as well [facility]* Patient Instructions* Milady Azevedo Ma - 03/29/2023 11:25 AM EDT YOUR RECOVERY After your biopsy you may have: Vaginal bleeding (less than a normal menstrual period) Mild cramping Do NOT put anything in the vagina for 1 week after your endometrial biopsy. This includes: tampons douches and refraining from having sexual intercourse If you have any discomfort, you may take an over the counter pain medication (motrin, advil, ibuprofen, tylenol, etc). If this does not relieve your discomfort, contact the office. It is okay to wear a sanitary pad until the discharge and spotting stops. RISKS Although problems seldom occur with endometrial biopsies, there can be some complications. You may feel faint during and shortly after the procedure as well as have some bleeding after the procedure.There is also a risk of infection after the procedure. These complications are rare and can be easily treated. You should contact you doctor is you have any of the following: Heavy bleeding (more than your normal period) Bleeding with clots Severe abdominal pain Fever (more than 100.4F) Foul smelling vaginal discharge RESULTS We will have the results of your biopsy in 1-2 weeks. If you do not hear the results of your biopsyafter 2 weeks, please contact the office for the results. If you have any additional questions or concerns please do not hesitate to contact the office. documented in this encounterCleveland Clinic Foundation05-04-2023 History of Present illness Narrative* Marques Paul MD - 03/29/2023 11:23 AM EDT Marilin is a 57 year old who presents today for an endometrial biopsy for thickening of endometriallining. test: n/a UNIVERSAL PROTOCOL / SAFETY CHECKLIST Procedure to be Performed: EMB Sign In: A Moment of CARE was completed. Personnel directly involved with the procedure wore the appropriate PPE (Personal Protective Equipment). Patient/Surrogate Stated/Verified: PATIENT VERIFIED(optional for EMERGENT procedures): Patient name, Date of , Relevant allergies, and The intended procedure Time Out Communication: Intended patient and procedure match the source documents. Consent documented and matches the intended procedure. Relevant labs, photos, and/or imaging studies have been reviewed. No implant(s) inserted. Sign Out: SIGN OUT (optional for EMERGENT procedures): All specimen containers correctly labeled. All instruments, equipment, possible retained foreign bodies accounted for. Post-procedure follow-up management communicated and Plan of Care Visit completed when applicable. Marques Paul M.D. PROCEDURE: EXTERNAL GENITALIA: Normal in appearance without lesions VAGINA: Normal in appearance without lesions BIOPSY: Speculum placed into the vagina with excellent visualization of the cervix. Cervix cleaned with betadine. Anterior lip of cervix grasped with single toothed tenaculum. Uterus sounded to 8 cm.Pipelle inserted into the uterus without difficulty and endometrial biopsy obtained. Specimen labeled and sent to pathology. Procedure Summary: Patient tolerated procedure well. ASSESSMENT: abnormal uterine bleeding PLAN: Specimens labeled and sent to Pathology. Will notify patient of results in 1-2 weeks. Post-procedure instructions reviewed and written material given to the patient. Pap done as well Marques Paul MD documented in this encounterCleveland Clinic Foundation03-07-2023 Miscellaneous Notes* Telephone Encounter - Marques Paul MD - 01/30/2023 11:18 AM EST Thanks for the update. Marques Paul MD * Telephone Encounter - Chanelle Boland RN - 01/30/2023 9:56 AM EST Called patient. Patient notified of the below message. States when her bleeding initially started she saw her doctor who is in integrated [facility]. CA125 ordered and was normal. Also, recently lost 25 pounds on a weight program. She appreciates the call. Will keep her March 29 visit. JONA Boland RN * Telephone Encounter - Marques Paul MD - 01/30/2023 9:02 AM EST noted. This biopsy is important to make sure there is not evidence of uterine cancer. If she would like to wait I just want to make sure she is aware of why we wanted to do the biopsy. I will see [facility]. Thanks. Marques Paul MD * Telephone Encounter - Chanelle Boland RN - 01/30/2023 8:53 AM EST Patient notified. Declines an appointment this week before leaving for [place]. Has several other appointments. She is now scheduled for March 29. Won't be back from [place] until end of February, beginning of March. She will see a doctor in [place] if she has any problems. JONA Boland RN * Telephone Encounter - Marques Paul MD - 01/29/2023 5:17 PM EST 1 pm on or Sun or she can have w/ an C[employer] J[employer] ENGINEER or CNM. Thanks. Marques Paul MD * Telephone Encounter - Lydia García LPN - 01/29/2023 2:49 PM EST Patient notified of results and mentioned that she is leaving for [place] this weekend and won't beback until mid February. Patient asking if ok to schedule endometrial biopsy when she returns? If not,please advise where she can be added to scheduled * Telephone Encounter - Lydia García LPN - 01/29/2023 2:48 PM EST ----- Message from Marques Paul MD sent at 01/29/2023 2:02 PM EST ----- ORder in, schedule EMB w/ me. Her ovaries look normal. Her lining is thick and for that we need to do a biopsy. I would recommend pretreat w/ ibuprofen 400-600 mg PO about 1 hour before procedure. Thanks. Marques Paul MD documented in this encounterCleveland Clinic Foundation03-02-2023 NoteHNO ID: [id number] Author: Marybel Lux RDMS Service: ? Author Type: [employer] Selling [employer] Type: Progress Notes Filed: 01/25/2023 9:56 AM Note Text: Radiology Service Progress Note PATIENT NAME: Marilin Barlow DATE OF SERVICE: January 25, 2023 TIME: 9:56 AM PATIENT IDENTITY VERIFICATION COMPLETED USING TWO (2) IDENTIFIERS: Name and Date of confirmed by patient verbally. FALL SCREENING: Has the patient had 2 falls in the last year or 1 fall with injury or currently using an Ambulatory Assistive Device (Walker, Cane, Wheelchair, Crutches, etc.)? Yes, Patient High Risk for Falls What interventions were put in place to prevent falls during this visit? Offered Assistance with Transfers/Clothing, Increased Observations by Caregivers, and Escorted to/from Restroom PATIENT GENDER DATA: Female. status: : No status: NO. PATIENT RELEVANT IMPLANT DATA REVIEWED: Not Applicable RADIOLOGY DEPARTMENT: Ultrasound PERIPHERAL IV DATA: Not applicable SIGNED BY: Marybel Lux RDMS January 25, 2023 9:56 [facility]03-02-2023 History of Present illness Narrative* Marybel Lux RDMS - 01/25/2023 9:15 AM EST Radiology Service Progress Note PATIENT NAME: Marilin Barlow DATE OF SERVICE: January 25, 2023 TIME: 9:56 AM PATIENT IDENTITY VERIFICATION COMPLETED USING TWO (2) IDENTIFIERS: Name and Date of confirmedby patient verbally. FALL SCREENING: Has the patient had 2 falls in the last year or 1 fall with injury or currently using an Ambulatory Assistive Device (Walker, Cane, Wheelchair, Crutches, etc.)? Yes, Patient High Riskfor Falls What interventions were put in place to prevent falls during this visit? Offered Assistance with Transfers/Clothing, Increased Observations by Caregivers, and Escorted to/from Restroom PATIENT GENDER DATA: Female. status: : No status: NO. PATIENT RELEVANT IMPLANT DATA REVIEWED: Not Applicable RADIOLOGY DEPARTMENT: Ultrasound PERIPHERAL IV DATA: Not applicable SIGNED BY: Marybel Lux RDMS January 25, 2023 9:56 AM documented in this encounterCleveland Clinic Foundation02-20-2023 Miscellaneous Notes* Telephone Encounter - Aicha Moore LPN - 01/15/2023 2:20 PM EST Appt scheduled. Aicha Moore LPN' * Telephone Encounter - Mary Kaiser RN - 01/15/2023 10:46 AM EST PSS: Please contact patient to schedule pelvic ultrasound. Thank you. Mary Kaiser RN * Telephone Encounter - Mary Kaiser RN - 01/12/2023 5:01 PM EST Patient notified and voiced understanding. Transferred to PSS to schedule pelvic ultrasound and EMB. Mary Kaiser RN * Telephone Encounter - Marques Paul MD - 01/12/2023 4:47 PM EST needs US and appointment, likely EMB. If recurs let us know. Marques Paul MD * Telephone Encounter - Aicha Moore LPN - 01/12/2023 4:03 PM EST Pt calling and stated that she has not had any menses for the past 7-8yrs. She began bleeding fairly heavily Sunday evening, continued through today and has almost stopped at this point. Pt is now having low back pain. Attempted to schedule pt to be seen Sunday morning. Pt unable to be seen d/t having to be on a business trip out of town and will not return until the week of the 01/22/23. Pt was scheduled 01/24/23 with RR to be evaluated. Please advise with any further instructions. Aicha Moore LPN documented in this encounterCleveland Clinic Foundation03-30-2016 History of Past illness Narrative* Problem Noted Date Resolved Date Dysphagia 02/23/2016 02/23/2016 LUQ pain 02/23/2016 02/23/2016 Screening for colon cancer 02/23/201602/22 Vulvar lesion 03/28/2012 04/11/2012 STASIS DERMATITIS///VENOUS INSUFFICIENCY NOS 12/24/2014 STASIS DERMATITIS///LEG VARICOSITY W INFLAM 01/2412/24/2014 Contact dermatitis and other eczema, due to unspecified cause 02/07/2007 12/24/2014 Cellulitis and abscess of leg, except foot 02/0712/24/2014 Unspecified pruritic disorder 02/07/2007 ZEROSIS///SEBACEOUS GLAND DIS NEC 02/07/2007 12/24/2014 documented as of this encounter (statuses as of 01/15/2023) [facility] History of Past illness Narrative* Problem Noted Date Resolved Date Dysphagia 02/23/2016 02/23/2016 LUQ pain 02/23/2016 02/23/2016 Screening for colon cancer 02/23/201602/22 Vulvar lesion 03/28/2012 04/11/2012 STASIS DERMATITIS///VENOUS INSUFFICIENCY NOS 12/24/2014 STASIS DERMATITIS///LEG VARICOSITY W INFLAM 01/2412/24/2014 Contact dermatitis and other eczema, due to unspecified cause 02/07/2007 12/24/2014 Cellulitis and abscess of leg, except foot 02/0712/24/2014 Unspecified pruritic disorder 02/07/2007 ZEROSIS///SEBACEOUS GLAND DIS NEC 02/07/2007 12/24/2014 documented as of this encounter (statuses as of 01/30/2023) [facility] History of Past illness Narrative* Problem Noted Date Resolved Date Dysphagia 02/23/2016 02/23/2016 LUQ pain 02/23/2016 02/23/2016 Screening for colon cancer 02/23/201602/22 Vulvar lesion 03/28/2012 04/11/2012 STASIS DERMATITIS///VENOUS INSUFFICIENCY NOS 12/24/2014 STASIS DERMATITIS///LEG VARICOSITY W INFLAM 01/2412/24/2014 Contact dermatitis and other eczema, due to unspecified cause 02/07/2007 12/24/2014 Cellulitis and abscess of leg, except foot 02/0712/24/2014 Unspecified pruritic disorder 02/07/2007 ZEROSIS///SEBACEOUS GLAND DIS NEC 02/07/2007 12/24/2014 documented as of this encounter (statuses as of 03/29/2023) [facility] History of Past illness Narrative* Problem Noted Date Resolved Date Dysphagia 02/23/2016 02/23/2016 LUQ pain 02/23/2016 02/23/2016 Screening for colon cancer 02/23/201602/22 Vulvar lesion 03/28/2012 04/11/2012 STASIS DERMATITIS///VENOUS INSUFFICIENCY NOS 12/24/2014 STASIS DERMATITIS///LEG VARICOSITY W INFLAM 01/2412/24/2014 Contact dermatitis and other eczema, due to unspecified cause 02/07/2007 12/24/2014 Cellulitis and abscess of leg, except foot 02/0712/24/2014 Unspecified pruritic disorder 02/07/2007 ZEROSIS///SEBACEOUS GLAND DIS NEC 02/07/2007 12/24/2014 documented as of this encounter (statuses as of 05/31/2023) [facility] History of Past illness Narrative* Problem Noted Date Diagnosed Date Resolved Date Dysphagia 02/23/2016 02/23/2016 LUQ pain 02/23/2016 02/23/2016 Screening for colon cancer 02/23/2016 0 02/23/2016 Vulvar lesion 03/28/2012 04/11/2012 STASIS DERMATITIS///VENOUS INSUFFICIENCY NOS 7 12/24/2014 STASIS DERMATITIS///LEG VARICOSITY W INFLAM 02/07/2007 12/24/2014 Contact dermatitis and other eczema, due to unspecified cause 02/07/2007 12/24/2014 Cellulitis and abscess of leg, except foot 02/07/2007 12/24/2014 Unspecified pruritic disorder 02/07/2007 12/24/2014 ZEROSIS///SEBACEOUS GLAND DIS NEC 02/07/2007 12/24/2014 documented as of this encounter (statuses as of 07/17/2023) [facility] History of Past illness Narrative* Problem Noted Date Diagnosed Date Resolved Date Dysphagia 02/23/2016 02/23/2016 LUQ pain 02/23/2016 02/23/2016 Screening for colon cancer 02/23/2016 0 02/23/2016 Vulvar lesion 03/28/2012 04/11/2012 STASIS DERMATITIS///VENOUS INSUFFICIENCY NOS 7 12/24/2014 STASIS DERMATITIS///LEG VARICOSITY W INFLAM 02/07/2007 12/24/2014 Contact dermatitis and other eczema, due to unspecified cause 02/07/2007 12/24/2014 Cellulitis and abscess of leg, except foot 02/07/2007 12/24/2014 Unspecified pruritic disorder 02/07/2007 12/24/2014 ZEROSIS///SEBACEOUS GLAND DIS NEC 02/07/2007 12/24/2014 documented as of this encounter (statuses as of 09/30/2023) [facility] History of Past illness Narrative* Problem Noted Date Diagnosed Date Resolved Date Dysphagia 02/23/2016 02/23/2016 LUQ pain 02/23/2016 02/23/2016 Screening for colon cancer 02/23/2016 0 02/23/2016 Vulvar lesion 03/28/2012 04/11/2012 STASIS DERMATITIS///VENOUS INSUFFICIENCY NOS 7 12/24/2014 STASIS DERMATITIS///LEG VARICOSITY W INFLAM 02/07/2007 12/24/2014 Contact dermatitis and other eczema, due to unspecified cause 02/07/2007 12/24/2014 Cellulitis and abscess of leg, except foot 02/07/2007 12/24/2014 Unspecified pruritic disorder 02/07/2007 12/24/2014 ZEROSIS///SEBACEOUS GLAND DIS NEC 02/07/2007 12/24/2014 documented as of this encounter (statuses as of 09/30/2023) [facility] noteNo assessment information availableWSelect [facility] Work Phone: Evaluation note* Diagnosis PMB (postmenopausal bleeding)- Primary Postmenopausal bleeding documented in this encounter [facility] note* Diagnosis PMB (postmenopausal bleeding)- Primary Postmenopausal bleeding Thickened endometrium Nonspecific (abnormal) findings on radiological and other examination of genitourinary organs Encounter for screening mammogram for malignant neoplasm of breast Other screening mammogram Encounter for screening for malignant neoplasm of cervix Screening for malignant neoplasm of the cervix Special screening examination for human papillomavirus (HPV) documented in this encounter [facility] note* Diagnosis Encounter for screening mammogram for malignant neoplasm of breast Other screening mammogram documented in this encounter [facility] note* Diagnosis PMB (postmenopausal bleeding) Postmenopausal bleeding documented in this encounter [facility] note* Diagnosis Onset Date Resolution Status Admit Date Atrial fibrillation acute May 14, 2025 1:42pm Hx of pulmonary embolus acute J une 2024 1:42pm [facility] Work Phone: Evaluation note* Diagnosis Onset Date Resolution Status Admit Date Atrial fibrillation acute Octob er 2024 2:23pm Elevated blood pressure reading acut e September 21, 2025 2:23pm Hx of pulmonary embolus acute O ctober 2024 2:23pm [facility] Work Phone: Hospital Discharge instructionsAdditional Instructions Keep the area dry and clean and keep a very close eye on this wound and watch out for signs infection such as surrounding redness or purulent drainage if this is to occur you need to call your doctor or return to the emergency department immediately. Follow-up your doctor within the next few days your sutures will need to come out in approximately 10 days. Return with worsening symptoms or any other concernsWSelect Medical Special[facility] Work Phone: Instructions* Name Dates Details Patient Instructions Indication:Nonsmoker Start:15-Mar-2021 Instruction Type:Provider Instructions for Treatment How to Access Health Informa tion Online using Patient Portal and 3rd [employer] Apps Indication:Nonsmoker Start:15-Mar-2021 Instruction Type:Patient Education Patient Instructions Indication:Nonsmoker Start:11-Mar-2021 Instruction Type:Provider Instructions for Treatment How to Access Health Informa tion Online using Patient Portal and 3rd [employer] Apps Indication:Nonsmoker Start:11-Mar-2021 Instruction Type:Patient Education Patient Instructions Indication:Nonsmoker Start:01-Mar-2021 Instruction Type:Provider Instructions for Treatment How to Access Health Informa tion Online using Patient Portal and 3rd [employer] Apps Indication:Nonsmoker Start:01-Mar-2021 Instruction Type:Patient Education How to access health informa tion online Indication:Nonsmoker Start:20-Apr-2020 Instruction Type:Patient Education How to access health informa tion online - Detail Indication:Nonsmoker Start:20-Apr-2020 Instruction Type:Patient Education Patient Instructions Indication:BMI 40.0-44.9, adult Start:20-Apr-2020 Instruction Type:Provider Instructions for Treatment How to access health informa tion online Indication:Nonsmoker Start:06-Jun-2018 Instruction Type:Patient Education How to access health informa tion online - Detail Indication:Nonsmoker Start:06-Jun-2018 Instruction Type:Patient Education Patient Instructions Indication:Nonsmoker Start:06-Jun-2018 Instruction Type:Provider Instructions for Treatment How to access health informa tion online Indication:BMI 40.0-44.9, adult Start:21-May-2018 Instruction Type:Patient Education How to access health informa tion online - Detail Indication:BMI 40.0-44.9, adult Start:21-May-2018 Instruction Type:Patient Education Patient Instructions Indication:Left knee pain Start:21-May-2018 Instruction Type:Provider Instructions for Treatment How to access health informa tion online Indication:Non-smoker Start:13-Apr-2017 Instruction Type:Patient Education How to access health informa tion online - Detail Indication:Non-smoker Start:13-Apr-2017 Instruction Type:Patient Education Patient Instructions Indication:Non-smoker Start:13-Apr-2017 Instruction Type:Provider Instructions for Treatment How to access health informa tion online Indication:Leg pain Start:27-Mar-2017 Instruction Type:Patient Education How to access health informa tion online - Detail Indication:Leg pain Start:27-Mar-2017 Instruction Type:Patient Education Patient Instructions Indication:Leg pain Start:27-Mar-2017 Instruction Type:Provider Instructions for Treatment How to access health informa tion online Indication:Non-smoker Start:28-Dec-2016 Instruction Type:Patient Education How to access health informa tion online - Detail Indication:Non-smoker Start:28-Dec-2016 Instruction Type:Patient Education Patient Instructions Indication:Non-smoker Start:28-Dec-2016 Instruction Type:Provider Instructions for Treatment How to access health informa tion online Indication:BMI 35.0-35.9,adult Start:26-Oct-2016 Instruction Type:Patient Education How to access health informa tion online - Detail Indication:BMI 35.0-35.9,adult Start:26-Oct-2016 Instruction Type:Patient Education Patient Instructions Indication:BMI 35.0-35.9,adult Start:26-Oct-2016 Instruction Type:Provider Instructions for Treatment How to access health informa tion online Indication:Hypercholesteremia Start:05-Oct-2016 Instruction Type:Patient Education How to access health informa tion online - Detail Indication:Hypercholesteremia Start:05-Oct-2016 Instruction Type:Patient Education Patient Instructions Indication:Hypercholesteremia Start:05-Oct-2016 Instruction Type:Provider Instructions for Treatment How to access health informa tion online Indication:LUQ discomfort Start:05-Sep-2016 Instruction Type:Patient Education How to access health informa tion online - Detail Indication:LUQ discomfort Start:05-Sep-2016 Instruction Type:Patient Education Patient Instructions Indication:LUQ discomfort Start:05-Sep-2016 Instruction Type:Provider Instructions for Treatment Patient Instructions Indication:Retinal tear, left Start:05-Apr-2016 Instruction Type:Provider Instructions for Treatment Patient Instructions Indication:Anxiety Start:05-Apr-2016 Instruction Type:Provider Instructions for Treatment How to access health informa tion online Indication:Anxiety Start:19-Jan-2016 Instruction Type:Patient Education How to access health informa tion online - Detail Indication:Anxiety Start:19-Jan-2016 Instruction Type:Patient Education Patient Instructions Indication:Anxiety Start:19-Jan-2016 Instruction Type:Provider Instructions for Treatment Patient Instructions Indication:Abdominal pain, diffuse Start:06-Dec-2015 Instruction Type:Provider Instructions for Treatment How to access health informa tion online Indication:Diverticulitis of intestine without perforation or abscess without bleeding, unspecified part of intestinal tract Start:29-Nov-2015 Instruction Type:Patient Education How to access health informa tion online - Detail Indication:Diverticulitis of intestine without perforation or abscess without bleeding, unspecified part of intestinal tract Start:29-Nov-2015 Instruction Type:Patient Education Patient Instructions Indication:Diverticulitis of intestine without perforation or abscess without bleeding, unspecified part of intestinal tract Start:29-Nov-2015 Instruction Type:Provider Instructions for Treatment How to access health informa tion online Indication:Anxiety Start:04-Nov-2015 Instruction Type:Patient Education How to access health informa tion online - Detail Indication:Anxiety Start:04-Nov-2015 Instruction Type:Patient Education Patient Instructions Indication:Anxiety Start:04-Nov-2015 Instruction Type:Provider Instructions for Treatment How to access health informa tion online Indication:Stress reaction, emotional Start:20-Oct-2015 Instruction Type:Patient Education How to access health informa tion online - Detail Indication:Stress reaction, emotional Start:20-Oct-2015 Instruction Type:Patient Education Patient Instructions Indication:Stress reaction, emotional Start:20-Oct-2015 Instruction Type:Provider Instructions for Treatment Patient Instructions Indication:Skin infection Start:06-Mar-2014 Instruction Type:Provider Instructions for Treatment Patient Instructions Indication:Abdominal pain Start:03-Dec-2013 Instruction Type:Provider Instructions for Treatment [facility]; [facility] Work Phone: Instructions* Name Dates Details Patient Instructions Indication:Nonsmoker Start:15-Mar-2021 Instruction Type:Provider Instructions for Treatment How to Access Health Informa tion Online using Patient Portal and [employer] Apps Indication:Nonsmoker Start:15-Mar-2021 Instruction Type:Patient Education Patient Instructions Indication:Nonsmoker Start:11-Mar-2021 Instruction Type:Provider Instructions for Treatment How to Access Health Informa tion Online using Patient Portal and [employer] Apps Indication:Nonsmoker Start:11-Mar-2021 Instruction Type:Patient Education Patient Instructions Indication:Nonsmoker Start:01-Mar-2021 Instruction Type:Provider Instructions for Treatment How to Access Health Informa tion Online using Patient Portal and [employer] Apps Indication:Nonsmoker Start:01-Mar-2021 Instruction Type:Patient Education How to access health informa tion online Indication:Nonsmoker Start:20-Apr-2020 Instruction Type:Patient Education How to access health informa tion online - Detail Indication:Nonsmoker Start:20-Apr-2020 Instruction Type:Patient Education Patient Instructions Indication:BMI 40.0-44.9, adult Start:20-Apr-2020 Instruction Type:Provider Instructions for Treatment How to access health informa tion online Indication:Nonsmoker Start:06-Jun-2018 Instruction Type:Patient Education How to access health informa tion online - Detail Indication:Nonsmoker Start:06-Jun-2018 Instruction Type:Patient Education Patient Instructions Indication:Nonsmoker Start:06-Jun-2018 Instruction Type:Provider Instructions for Treatment How to access health informa tion online Indication:BMI 40.0-44.9, adult Start:21-May-2018 Instruction Type:Patient Education How to access health informa tion online - Detail Indication:BMI 40.0-44.9, adult Start:21-May-2018 Instruction Type:Patient Education Patient Instructions Indication:Left knee pain Start:21-May-2018 Instruction Type:Provider Instructions for Treatment How to access health informa tion online Indication:Non-smoker Start:13-Apr-2017 Instruction Type:Patient Education How to access health informa tion online - Detail Indication:Non-smoker Start:13-Apr-2017 Instruction Type:Patient Education Patient Instructions Indication:Non-smoker Start:13-Apr-2017 Instruction Type:Provider Instructions for Treatment How to access health informa tion online Indication:Leg pain Start:27-Mar-2017 Instruction Type:Patient Education How to access health informa tion online - Detail Indication:Leg pain Start:27-Mar-2017 Instruction Type:Patient Education Patient Instructions Indication:Leg pain Start:27-Mar-2017 Instruction Type:Provider Instructions for Treatment How to access health informa tion online Indication:Non-smoker Start:28-Dec-2016 Instruction Type:Patient Education How to access health informa tion online - Detail Indication:Non-smoker Start:28-Dec-2016 Instruction Type:Patient Education Patient Instructions Indication:Non-smoker Start:28-Dec-2016 Instruction Type:Provider Instructions for Treatment How to access health informa tion online Indication:BMI 35.0-35.9,adult Start:26-Oct-2016 Instruction Type:Patient Education How to access health informa tion online - Detail Indication:BMI 35.0-35.9,adult Start:26-Oct-2016 Instruction Type:Patient Education Patient Instructions Indication:BMI 35.0-35.9,adult Start:26-Oct-2016 Instruction Type:Provider Instructions for Treatment How to access health informa tion online Indication:Hypercholesteremia Start:05-Oct-2016 Instruction Type:Patient Education How to access health informa tion online - Detail Indication:Hypercholesteremia Start:05-Oct-2016 Instruction Type:Patient Education Patient Instructions Indication:Hypercholesteremia Start:05-Oct-2016 Instruction Type:Provider Instructions for Treatment How to access health informa tion online Indication:LUQ discomfort Start:05-Sep-2016 Instruction Type:Patient Education How to access health informa tion online - Detail Indication:LUQ discomfort Start:05-Sep-2016 Instruction Type:Patient Education Patient Instructions Indication:LUQ discomfort Start:05-Sep-2016 Instruction Type:Provider Instructions for Treatment Patient Instructions Indication:Retinal tear, left Start:05-Apr-2016 Instruction Type:Provider Instructions for Treatment Patient Instructions Indication:Anxiety Start:05-Apr-2016 Instruction Type:Provider Instructions for Treatment How to access health informa tion online Indication:Anxiety Start:19-Jan-2016 Instruction Type:Patient Education How to access health informa tion online - Detail Indication:Anxiety Start:19-Jan-2016 Instruction Type:Patient Education Patient Instructions Indication:Anxiety Start:19-Jan-2016 Instruction Type:Provider Instructions for Treatment Patient Instructions Indication:Abdominal pain, diffuse Start:06-Dec-2015 Instruction Type:Provider Instructions for Treatment How to access health informa tion online Indication:Diverticulitis of intestine without perforation or abscess without bleeding, unspecified part of intestinal tract Start:29-Nov-2015 Instruction Type:Patient Education How to access health informa tion online - Detail Indication:Diverticulitis of intestine without perforation or abscess without bleeding, unspecified part of intestinal tract Start:29-Nov-2015 Instruction Type:Patient Education Patient Instructions Indication:Diverticulitis of intestine without perforation or abscess without bleeding, unspecified part of intestinal tract Start:29-Nov-2015 Instruction Type:Provider Instructions for Treatment How to access health informa tion online Indication:Anxiety Start:04-Nov-2015 Instruction Type:Patient Education How to access health informa tion online - Detail Indication:Anxiety Start:04-Nov-2015 Instruction Type:Patient Education Patient Instructions Indication:Anxiety Start:04-Nov-2015 Instruction Type:Provider Instructions for Treatment How to access health informa tion online Indication:Stress reaction, emotional Start:20-Oct-2015 Instruction Type:Patient Education How to access health informa tion online - Detail Indication:Stress reaction, emotional Start:20-Oct-2015 Instruction Type:Patient Education Patient Instructions Indication:Stress reaction, emotional Start:20-Oct-2015 Instruction Type:Provider Instructions for Treatment Patient Instructions Indication:Skin infection Start:06-Mar-2014 Instruction Type:Provider Instructions for Treatment Patient Instructions Indication:Abdominal pain Start:03-Dec-2013 Instruction Type:Provider Instructions for Treatment [facility]; [facility] Work Phone: Instructions* Name Dates Details Patient Instructions Indication:Nonsmoker Start:15-Mar-2021 Instruction Type:Provider Instructions for Treatment How to Access Health Informa tion Online using Patient Portal and [employer] Apps Indication:Nonsmoker Start:15-Mar-2021 Instruction Type:Patient Education Patient Instructions Indication:Nonsmoker Start:11-Mar-2021 Instruction Type:Provider Instructions for Treatment How to Access Health Informa tion Online using Patient Portal and [employer] Apps Indication:Nonsmoker Start:11-Mar-2021 Instruction Type:Patient Education Patient Instructions Indication:Nonsmoker Start:01-Mar-2021 Instruction Type:Provider Instructions for Treatment How to Access Health Informa tion Online using Patient Portal and [employer] Apps Indication:Nonsmoker Start:01-Mar-2021 Instruction Type:Patient Education How to access health informa tion online Indication:Nonsmoker Start:20-Apr-2020 Instruction Type:Patient Education How to access health informa tion online - Detail Indication:Nonsmoker Start:20-Apr-2020 Instruction Type:Patient Education Patient Instructions Indication:BMI 40.0-44.9, adult Start:20-Apr-2020 Instruction Type:Provider Instructions for Treatment How to access health informa tion online Indication:Nonsmoker Start:06-Jun-2018 Instruction Type:Patient Education How to access health informa tion online - Detail Indication:Nonsmoker Start:06-Jun-2018 Instruction Type:Patient Education Patient Instructions Indication:Nonsmoker Start:06-Jun-2018 Instruction Type:Provider Instructions for Treatment How to access health informa tion online Indication:BMI 40.0-44.9, adult Start:21-May-2018 Instruction Type:Patient Education How to access health informa tion online - Detail Indication:BMI 40.0-44.9, adult Start:21-May-2018 Instruction Type:Patient Education Patient Instructions Indication:Left knee pain Start:21-May-2018 Instruction Type:Provider Instructions for Treatment How to access health informa tion online Indication:Non-smoker Start:13-Apr-2017 Instruction Type:Patient Education How to access health informa tion online - Detail Indication:Non-smoker Start:13-Apr-2017 Instruction Type:Patient Education Patient Instructions Indication:Non-smoker Start:13-Apr-2017 Instruction Type:Provider Instructions for Treatment How to access health informa tion online Indication:Leg pain Start:27-Mar-2017 Instruction Type:Patient Education How to access health informa tion online - Detail Indication:Leg pain Start:27-Mar-2017 Instruction Type:Patient Education Patient Instructions Indication:Leg pain Start:27-Mar-2017 Instruction Type:Provider Instructions for Treatment How to access health informa tion online Indication:Non-smoker Start:28-Dec-2016 Instruction Type:Patient Education How to access health informa tion online - Detail Indication:Non-smoker Start:28-Dec-2016 Instruction Type:Patient Education Patient Instructions Indication:Non-smoker Start:28-Dec-2016 Instruction Type:Provider Instructions for Treatment How to access health informa tion online Indication:BMI 35.0-35.9,adult Start:26-Oct-2016 Instruction Type:Patient Education How to access health informa tion online - Detail Indication:BMI 35.0-35.9,adult Start:26-Oct-2016 Instruction Type:Patient Education Patient Instructions Indication:BMI 35.0-35.9,adult Start:26-Oct-2016 Instruction Type:Provider Instructions for Treatment How to access health informa tion online Indication:Hypercholesteremia Start:05-Oct-2016 Instruction Type:Patient Education How to access health informa tion online - Detail Indication:Hypercholesteremia Start:05-Oct-2016 Instruction Type:Patient Education Patient Instructions Indication:Hypercholesteremia Start:05-Oct-2016 Instruction Type:Provider Instructions for Treatment How to access health informa tion online Indication:LUQ discomfort Start:05-Sep-2016 Instruction Type:Patient Education How to access health informa tion online - Detail Indication:LUQ discomfort Start:05-Sep-2016 Instruction Type:Patient Education Patient Instructions Indication:LUQ discomfort Start:05-Sep-2016 Instruction Type:Provider Instructions for Treatment Patient Instructions Indication:Retinal tear, left Start:05-Apr-2016 Instruction Type:Provider Instructions for Treatment Patient Instructions Indication:Anxiety Start:05-Apr-2016 Instruction Type:Provider Instructions for Treatment How to access health informa tion online Indication:Anxiety Start:19-Jan-2016 Instruction Type:Patient Education How to access health informa tion online - Detail Indication:Anxiety Start:19-Jan-2016 Instruction Type:Patient Education Patient Instructions Indication:Anxiety Start:19-Jan-2016 Instruction Type:Provider Instructions for Treatment Patient Instructions Indication:Abdominal pain, diffuse Start:06-Dec-2015 Instruction Type:Provider Instructions for Treatment How to access health informa tion online Indication:Diverticulitis of intestine without perforation or abscess without bleeding, unspecified part of intestinal tract Start:29-Nov-2015 Instruction Type:Patient Education How to access health informa tion online - Detail Indication:Diverticulitis of intestine without perforation or abscess without bleeding, unspecified part of intestinal tract Start:29-Nov-2015 Instruction Type:Patient Education Patient Instructions Indication:Diverticulitis of intestine without perforation or abscess without bleeding, unspecified part of intestinal tract Start:29-Nov-2015 Instruction Type:Provider Instructions for Treatment How to access health informa tion online Indication:Anxiety Start:04-Nov-2015 Instruction Type:Patient Education How to access health informa tion online - Detail Indication:Anxiety Start:04-Nov-2015 Instruction Type:Patient Education Patient Instructions Indication:Anxiety Start:04-Nov-2015 Instruction Type:Provider Instructions for Treatment How to access health informa tion online Indication:Stress reaction, emotional Start:20-Oct-2015 Instruction Type:Patient Education How to access health informa tion online - Detail Indication:Stress reaction, emotional Start:20-Oct-2015 Instruction Type:Patient Education Patient Instructions Indication:Stress reaction, emotional Start:20-Oct-2015 Instruction Type:Provider Instructions for Treatment Patient Instructions Indication:Skin infection Start:06-Mar-2014 Instruction Type:Provider Instructions for Treatment Patient Instructions Indication:Abdominal pain Start:03-Dec-2013 Instruction Type:Provider Instructions for Treatment [facility]; [facility] Work Phone: Instructions* Name Dates Details Patient Instructions Indication:Nonsmoker Start:15-Mar-2021 Instruction Type:Provider Instructions for Treatment How to Access Health Informa tion Online using Patient Portal and [employer] Apps Indication:Nonsmoker Start:15-Mar-2021 Instruction Type:Patient Education Patient Instructions Indication:Nonsmoker Start:11-Mar-2021 Instruction Type:Provider Instructions for Treatment How to Access Health Informa tion Online using Patient Portal and [employer] Apps Indication:Nonsmoker Start:11-Mar-2021 Instruction Type:Patient Education Patient Instructions Indication:Nonsmoker Start:01-Mar-2021 Instruction Type:Provider Instructions for Treatment How to Access Health Informa tion Online using Patient Portal and [employer] Apps Indication:Nonsmoker Start:01-Mar-2021 Instruction Type:Patient Education How to access health informa tion online Indication:Nonsmoker Start:20-Apr-2020 Instruction Type:Patient Education How to access health informa tion online - Detail Indication:Nonsmoker Start:20-Apr-2020 Instruction Type:Patient Education Patient Instructions Indication:BMI 40.0-44.9, adult Start:20-Apr-2020 Instruction Type:Provider Instructions for Treatment How to access health informa tion online Indication:Nonsmoker Start:06-Jun-2018 Instruction Type:Patient Education How to access health informa tion online - Detail Indication:Nonsmoker Start:06-Jun-2018 Instruction Type:Patient Education Patient Instructions Indication:Nonsmoker Start:06-Jun-2018 Instruction Type:Provider Instructions for Treatment How to access health informa tion online Indication:BMI 40.0-44.9, adult Start:21-May-2018 Instruction Type:Patient Education How to access health informa tion online - Detail Indication:BMI 40.0-44.9, adult Start:21-May-2018 Instruction Type:Patient Education Patient Instructions Indication:Left knee pain Start:21-May-2018 Instruction Type:Provider Instructions for Treatment How to access health informa tion online Indication:Non-smoker Start:13-Apr-2017 Instruction Type:Patient Education How to access health informa tion online - Detail Indication:Non-smoker Start:13-Apr-2017 Instruction Type:Patient Education Patient Instructions Indication:Non-smoker Start:13-Apr-2017 Instruction Type:Provider Instructions for Treatment How to access health informa tion online Indication:Leg pain Start:27-Mar-2017 Instruction Type:Patient Education How to access health informa tion online - Detail Indication:Leg pain Start:27-Mar-2017 Instruction Type:Patient Education Patient Instructions Indication:Leg pain Start:27-Mar-2017 Instruction Type:Provider Instructions for Treatment How to access health informa tion online Indication:Non-smoker Start:28-Dec-2016 Instruction Type:Patient Education How to access health informa tion online - Detail Indication:Non-smoker Start:28-Dec-2016 Instruction Type:Patient Education Patient Instructions Indication:Non-smoker Start:28-Dec-2016 Instruction Type:Provider Instructions for Treatment How to access health informa tion online Indication:BMI 35.0-35.9,adult Start:26-Oct-2016 Instruction Type:Patient Education How to access health informa tion online - Detail Indication:BMI 35.0-35.9,adult Start:26-Oct-2016 Instruction Type:Patient Education Patient Instructions Indication:BMI 35.0-35.9,adult Start:26-Oct-2016 Instruction Type:Provider Instructions for Treatment How to access health informa tion online Indication:Hypercholesteremia Start:05-Oct-2016 Instruction Type:Patient Education How to access health informa tion online - Detail Indication:Hypercholesteremia Start:05-Oct-2016 Instruction Type:Patient Education Patient Instructions Indication:Hypercholesteremia Start:05-Oct-2016 Instruction Type:Provider Instructions for Treatment How to access health informa tion online Indication:LUQ discomfort Start:05-Sep-2016 Instruction Type:Patient Education How to access health informa tion online - Detail Indication:LUQ discomfort Start:05-Sep-2016 Instruction Type:Patient Education Patient Instructions Indication:LUQ discomfort Start:05-Sep-2016 Instruction Type:Provider Instructions for Treatment Patient Instructions Indication:Retinal tear, left Start:05-Apr-2016 Instruction Type:Provider Instructions for Treatment Patient Instructions Indication:Anxiety Start:05-Apr-2016 Instruction Type:Provider Instructions for Treatment How to access health informa tion online Indication:Anxiety Start:19-Jan-2016 Instruction Type:Patient Education How to access health informa tion online - Detail Indication:Anxiety Start:19-Jan-2016 Instruction Type:Patient Education Patient Instructions Indication:Anxiety Start:19-Jan-2016 Instruction Type:Provider Instructions for Treatment Patient Instructions Indication:Abdominal pain, diffuse Start:06-Dec-2015 Instruction Type:Provider Instructions for Treatment How to access health informa tion online Indication:Diverticulitis of intestine without perforation or abscess without bleeding, unspecified part of intestinal tract Start:29-Nov-2015 Instruction Type:Patient Education How to access health informa tion online - Detail Indication:Diverticulitis of intestine without perforation or abscess without bleeding, unspecified part of intestinal tract Start:29-Nov-2015 Instruction Type:Patient Education Patient Instructions Indication:Diverticulitis of intestine without perforation or abscess without bleeding, unspecified part of intestinal tract Start:29-Nov-2015 Instruction Type:Provider Instructions for Treatment How to access health informa tion online Indication:Anxiety Start:04-Nov-2015 Instruction Type:Patient Education How to access health informa tion online - Detail Indication:Anxiety Start:04-Nov-2015 Instruction Type:Patient Education Patient Instructions Indication:Anxiety Start:04-Nov-2015 Instruction Type:Provider Instructions for Treatment How to access health informa tion online Indication:Stress reaction, emotional Start:20-Oct-2015 Instruction Type:Patient Education How to access health informa tion online - Detail Indication:Stress reaction, emotional Start:20-Oct-2015 Instruction Type:Patient Education Patient Instructions Indication:Stress reaction, emotional Start:20-Oct-2015 Instruction Type:Provider Instructions for Treatment Patient Instructions Indication:Skin infection Start:06-Mar-2014 Instruction Type:Provider Instructions for Treatment Patient Instructions Indication:Abdominal pain Start:03-Dec-2013 Instruction Type:Provider Instructions for Treatment [facility]; [facility] Work Phone: Instructions* Name Dates Details Patient Instructions Indication:Nonsmoker Start:15-Mar-2021 Instruction Type:Provider Instructions for Treatment How to Access Health Informa tion Online using Patient Portal and [employer] Apps Indication:Nonsmoker Start:15-Mar-2021 Instruction Type:Patient Education Patient Instructions Indication:Nonsmoker Start:11-Mar-2021 Instruction Type:Provider Instructions for Treatment How to Access Health Informa tion Online using Patient Portal and [employer] Apps Indication:Nonsmoker Start:11-Mar-2021 Instruction Type:Patient Education Patient Instructions Indication:Nonsmoker Start:01-Mar-2021 Instruction Type:Provider Instructions for Treatment How to Access Health Informa tion Online using Patient Portal and [employer] Apps Indication:Nonsmoker Start:01-Mar-2021 Instruction Type:Patient Education How to access health informa tion online Indication:Nonsmoker Start:20-Apr-2020 Instruction Type:Patient Education How to access health informa tion online - Detail Indication:Nonsmoker Start:20-Apr-2020 Instruction Type:Patient Education Patient Instructions Indication:BMI 40.0-44.9, adult Start:20-Apr-2020 Instruction Type:Provider Instructions for Treatment How to access health informa tion online Indication:Nonsmoker Start:06-Jun-2018 Instruction Type:Patient Education How to access health informa tion online - Detail Indication:Nonsmoker Start:06-Jun-2018 Instruction Type:Patient Education Patient Instructions Indication:Nonsmoker Start:06-Jun-2018 Instruction Type:Provider Instructions for Treatment How to access health informa tion online Indication:BMI 40.0-44.9, adult Start:21-May-2018 Instruction Type:Patient Education How to access health informa tion online - Detail Indication:BMI 40.0-44.9, adult Start:21-May-2018 Instruction Type:Patient Education Patient Instructions Indication:Left knee pain Start:21-May-2018 Instruction Type:Provider Instructions for Treatment How to access health informa tion online Indication:Non-smoker Start:13-Apr-2017 Instruction Type:Patient Education How to access health informa tion online - Detail Indication:Non-smoker Start:13-Apr-2017 Instruction Type:Patient Education Patient Instructions Indication:Non-smoker Start:13-Apr-2017 Instruction Type:Provider Instructions for Treatment How to access health informa tion online Indication:Leg pain Start:27-Mar-2017 Instruction Type:Patient Education How to access health informa tion online - Detail Indication:Leg pain Start:27-Mar-2017 Instruction Type:Patient Education Patient Instructions Indication:Leg pain Start:27-Mar-2017 Instruction Type:Provider Instructions for Treatment How to access health informa tion online Indication:Non-smoker Start:28-Dec-2016 Instruction Type:Patient Education How to access health informa tion online - Detail Indication:Non-smoker Start:28-Dec-2016 Instruction Type:Patient Education Patient Instructions Indication:Non-smoker Start:28-Dec-2016 Instruction Type:Provider Instructions for Treatment How to access health informa tion online Indication:BMI 35.0-35.9,adult Start:26-Oct-2016 Instruction Type:Patient Education How to access health informa tion online - Detail Indication:BMI 35.0-35.9,adult Start:26-Oct-2016 Instruction Type:Patient Education Patient Instructions Indication:BMI 35.0-35.9,adult Start:26-Oct-2016 Instruction Type:Provider Instructions for Treatment How to access health informa tion online Indication:Hypercholesteremia Start:05-Oct-2016 Instruction Type:Patient Education How to access health informa tion online - Detail Indication:Hypercholesteremia Start:05-Oct-2016 Instruction Type:Patient Education Patient Instructions Indication:Hypercholesteremia Start:05-Oct-2016 Instruction Type:Provider Instructions for Treatment How to access health informa tion online Indication:LUQ discomfort Start:05-Sep-2016 Instruction Type:Patient Education How to access health informa tion online - Detail Indication:LUQ discomfort Start:05-Sep-2016 Instruction Type:Patient Education Patient Instructions Indication:LUQ discomfort Start:05-Sep-2016 Instruction Type:Provider Instructions for Treatment Patient Instructions Indication:Retinal tear, left Start:05-Apr-2016 Instruction Type:Provider Instructions for Treatment Patient Instructions Indication:Anxiety Start:05-Apr-2016 Instruction Type:Provider Instructions for Treatment How to access health informa tion online Indication:Anxiety Start:19-Jan-2016 Instruction Type:Patient Education How to access health informa tion online - Detail Indication:Anxiety Start:19-Jan-2016 Instruction Type:Patient Education Patient Instructions Indication:Anxiety Start:19-Jan-2016 Instruction Type:Provider Instructions for Treatment Patient Instructions Indication:Abdominal pain, diffuse Start:06-Dec-2015 Instruction Type:Provider Instructions for Treatment How to access health informa tion online Indication:Diverticulitis of intestine without perforation or abscess without bleeding, unspecified part of intestinal tract Start:29-Nov-2015 Instruction Type:Patient Education How to access health informa tion online - Detail Indication:Diverticulitis of intestine without perforation or abscess without bleeding, unspecified part of intestinal tract Start:29-Nov-2015 Instruction Type:Patient Education Patient Instructions Indication:Diverticulitis of intestine without perforation or abscess without bleeding, unspecified part of intestinal tract Start:29-Nov-2015 Instruction Type:Provider Instructions for Treatment How to access health informa tion online Indication:Anxiety Start:04-Nov-2015 Instruction Type:Patient Education How to access health informa tion online - Detail Indication:Anxiety Start:04-Nov-2015 Instruction Type:Patient Education Patient Instructions Indication:Anxiety Start:04-Nov-2015 Instruction Type:Provider Instructions for Treatment How to access health informa tion online Indication:Stress reaction, emotional Start:20-Oct-2015 Instruction Type:Patient Education How to access health informa tion online - Detail Indication:Stress reaction, emotional Start:20-Oct-2015 Instruction Type:Patient Education Patient Instructions Indication:Stress reaction, emotional Start:20-Oct-2015 Instruction Type:Provider Instructions for Treatment Patient Instructions Indication:Skin infection Start:06-Mar-2014 Instruction Type:Provider Instructions for Treatment Patient Instructions Indication:Abdominal pain Start:03-Dec-2013 Instruction Type:Provider Instructions for Treatment [facility] Work Phone: Instructions* Name Dates Details Patient Instructions Indication:Nonsmoker Start:15-Mar-2021 Instruction Type:Provider Instructions for Treatment How to Access Health Informa tion Online using Patient Portal and [employer]rd [employer] Apps Indication:Nonsmoker Start:15-Mar-2021 Instruction Type:Patient Education Patient Instructions Indication:Nonsmoker Start:11-Mar-2021 Instruction Type:Provider Instructions for Treatment How to Access Health Informa tion Online using Patient Portal and [employer]rd [employer] Apps Indication:Nonsmoker Start:11-Mar-2021 Instruction Type:Patient Education Patient Instructions Indication:Nonsmoker Start:01-Mar-2021 Instruction Type:Provider Instructions for Treatment How to Access Health Informa tion Online using Patient Portal and [employer]rd [employer] Apps Indication:Nonsmoker Start:01-Mar-2021 Instruction Type:Patient Education How to access health informa tion online Indication:Nonsmoker Start:20-Apr-2020 Instruction Type:Patient Education How to access health informa tion online - Detail Indication:Nonsmoker Start:20-Apr-2020 Instruction Type:Patient Education Patient Instructions Indication:BMI 40.0-44.9, adult Start:20-Apr-2020 Instruction Type:Provider Instructions for Treatment How to access health informa tion online Indication:Nonsmoker Start:06-Jun-2018 Instruction Type:Patient Education How to access health informa tion online - Detail Indication:Nonsmoker Start:06-Jun-2018 Instruction Type:Patient Education Patient Instructions Indication:Nonsmoker Start:06-Jun-2018 Instruction Type:Provider Instructions for Treatment How to access health informa tion online Indication:BMI 40.0-44.9, adult Start:21-May-2018 Instruction Type:Patient Education How to access health informa tion online - Detail Indication:BMI 40.0-44.9, adult Start:21-May-2018 Instruction Type:Patient Education Patient Instructions Indication:Left knee pain Start:21-May-2018 Instruction Type:Provider Instructions for Treatment How to access health informa tion online Indication:Non-smoker Start:13-Apr-2017 Instruction Type:Patient Education How to access health informa tion online - Detail Indication:Non-smoker Start:13-Apr-2017 Instruction Type:Patient Education Patient Instructions Indication:Non-smoker Start:13-Apr-2017 Instruction Type:Provider Instructions for Treatment How to access health informa tion online Indication:Leg pain Start:27-Mar-2017 Instruction Type:Patient Education How to access health informa tion online - Detail Indication:Leg pain Start:27-Mar-2017 Instruction Type:Patient Education Patient Instructions Indication:Leg pain Start:27-Mar-2017 Instruction Type:Provider Instructions for Treatment How to access health informa tion online Indication:Non-smoker Start:28-Dec-2016 Instruction Type:Patient Education How to access health informa tion online - Detail Indication:Non-smoker Start:28-Dec-2016 Instruction Type:Patient Education Patient Instructions Indication:Non-smoker Start:28-Dec-2016 Instruction Type:Provider Instructions for Treatment How to access health informa tion online Indication:BMI 35.0-35.9,adult Start:26-Oct-2016 Instruction Type:Patient Education How to access health informa tion online - Detail Indication:BMI 35.0-35.9,adult Start:26-Oct-2016 Instruction Type:Patient Education Patient Instructions Indication:BMI 35.0-35.9,adult Start:26-Oct-2016 Instruction Type:Provider Instructions for Treatment How to access health informa tion online Indication:Hypercholesteremia Start:05-Oct-2016 Instruction Type:Patient Education How to access health informa tion online - Detail Indication:Hypercholesteremia Start:05-Oct-2016 Instruction Type:Patient Education Patient Instructions Indication:Hypercholesteremia Start:05-Oct-2016 Instruction Type:Provider Instructions for Treatment How to access health informa tion online Indication:LUQ discomfort Start:05-Sep-2016 Instruction Type:Patient Education How to access health informa tion online - Detail Indication:LUQ discomfort Start:05-Sep-2016 Instruction Type:Patient Education Patient Instructions Indication:LUQ discomfort Start:05-Sep-2016 Instruction Type:Provider Instructions for Treatment Patient Instructions Indication:Retinal tear, left Start:05-Apr-2016 Instruction Type:Provider Instructions for Treatment Patient Instructions Indication:Anxiety Start:05-Apr-2016 Instruction Type:Provider Instructions for Treatment How to access health informa tion online Indication:Anxiety Start:19-Jan-2016 Instruction Type:Patient Education How to access health informa tion online - Detail Indication:Anxiety Start:19-Jan-2016 Instruction Type:Patient Education Patient Instructions Indication:Anxiety Start:19-Jan-2016 Instruction Type:Provider Instructions for Treatment Patient Instructions Indication:Abdominal pain, diffuse Start:06-Dec-2015 Instruction Type:Provider Instructions for Treatment How to access health informa tion online Indication:Diverticulitis of intestine without perforation or abscess without bleeding, unspecified part of intestinal tract Start:29-Nov-2015 Instruction Type:Patient Education How to access health informa tion online - Detail Indication:Diverticulitis of intestine without perforation or abscess without bleeding, unspecified part of intestinal tract Start:29-Nov-2015 Instruction Type:Patient Education Patient Instructions Indication:Diverticulitis of intestine without perforation or abscess without bleeding, unspecified part of intestinal tract Start:29-Nov-2015 Instruction Type:Provider Instructions for Treatment How to access health informa tion online Indication:Anxiety Start:04-Nov-2015 Instruction Type:Patient Education How to access health informa tion online - Detail Indication:Anxiety Start:04-Nov-2015 Instruction Type:Patient Education Patient Instructions Indication:Anxiety Start:04-Nov-2015 Instruction Type:Provider Instructions for Treatment How to access health informa tion online Indication:Stress reaction, emotional Start:20-Oct-2015 Instruction Type:Patient Education How to access health informa tion online - Detail Indication:Stress reaction, emotional Start:20-Oct-2015 Instruction Type:Patient Education Patient Instructions Indication:Stress reaction, emotional Start:20-Oct-2015 Instruction Type:Provider Instructions for Treatment Patient Instructions Indication:Skin infection Start:06-Mar-2014 Instruction Type:Provider Instructions for Treatment Patient Instructions Indication:Abdominal pain Start:03-Dec-2013 Instruction Type:Provider Instructions for Treatment [facility]; [facility] Work Phone: Instructions* Name Dates Details Patient Instructions Indication:Knee pain Start:01-Nov-2022 Instruction Type:Provider Instructions for Treatment How to Access Health Informa tion Online using Patient Portal and [employer]rd [employer] Apps Indication:Knee pain Start:01-Nov-2022 Instruction Type:Patient Education Patient Instructions Indication:Nonsmoker Start:15-Mar-2021 Instruction Type:Provider Instructions for Treatment How to Access Health Informa tion Online using Patient Portal and [employer]rd [employer] Apps Indication:Nonsmoker Start:15-Mar-2021 Instruction Type:Patient Education Patient Instructions Indication:Nonsmoker Start:11-Mar-2021 Instruction Type:Provider Instructions for Treatment How to Access Health Informa tion Online using Patient Portal and [employer]rd [employer] Apps Indication:Nonsmoker Start:11-Mar-2021 Instruction Type:Patient Education Patient Instructions Indication:Nonsmoker Start:01-Mar-2021 Instruction Type:Provider Instructions for Treatment How to Access Health Informa tion Online using Patient Portal and [employer]rd [employer] Apps Indication:Nonsmoker Start:01-Mar-2021 Instruction Type:Patient Education How to access health informa tion online Indication:Nonsmoker Start:20-Apr-2020 Instruction Type:Patient Education How to access health informa tion online - Detail Indication:Nonsmoker Start:20-Apr-2020 Instruction Type:Patient Education Patient Instructions Indication:BMI 40.0-44.9, adult Start:20-Apr-2020 Instruction Type:Provider Instructions for Treatment How to access health informa tion online Indication:Nonsmoker Start:06-Jun-2018 Instruction Type:Patient Education How to access health informa tion online - Detail Indication:Nonsmoker Start:06-Jun-2018 Instruction Type:Patient Education Patient Instructions Indication:Nonsmoker Start:06-Jun-2018 Instruction Type:Provider Instructions for Treatment How to access health informa tion online Indication:BMI 40.0-44.9, adult Start:21-May-2018 Instruction Type:Patient Education How to access health informa tion online - Detail Indication:BMI 40.0-44.9, adult Start:21-May-2018 Instruction Type:Patient Education Patient Instructions Indication:Left knee pain Start:21-May-2018 Instruction Type:Provider Instructions for Treatment How to access health informa tion online Indication:Non-smoker Start:13-Apr-2017 Instruction Type:Patient Education How to access health informa tion online - Detail Indication:Non-smoker Start:13-Apr-2017 Instruction Type:Patient Education Patient Instructions Indication:Non-smoker Start:13-Apr-2017 Instruction Type:Provider Instructions for Treatment How to access health informa tion online Indication:Leg pain Start:27-Mar-2017 Instruction Type:Patient Education How to access health informa tion online - Detail Indication:Leg pain Start:27-Mar-2017 Instruction Type:Patient Education Patient Instructions Indication:Leg pain Start:27-Mar-2017 Instruction Type:Provider Instructions for Treatment How to access health informa tion online Indication:Non-smoker Start:28-Dec-2016 Instruction Type:Patient Education How to access health informa tion online - Detail Indication:Non-smoker Start:28-Dec-2016 Instruction Type:Patient Education Patient Instructions Indication:Non-smoker Start:28-Dec-2016 Instruction Type:Provider Instructions for Treatment How to access health informa tion online Indication:BMI 35.0-35.9,adult Start:26-Oct-2016 Instruction Type:Patient Education How to access health informa tion online - Detail Indication:BMI 35.0-35.9,adult Start:26-Oct-2016 Instruction Type:Patient Education Patient Instructions Indication:BMI 35.0-35.9,adult Start:26-Oct-2016 Instruction Type:Provider Instructions for Treatment How to access health informa tion online Indication:Hypercholesteremia Start:05-Oct-2016 Instruction Type:Patient Education How to access health informa tion online - Detail Indication:Hypercholesteremia Start:05-Oct-2016 Instruction Type:Patient Education Patient Instructions Indication:Hypercholesteremia Start:05-Oct-2016 Instruction Type:Provider Instructions for Treatment How to access health informa tion online Indication:LUQ discomfort Start:05-Sep-2016 Instruction Type:Patient Education How to access health informa tion online - Detail Indication:LUQ discomfort Start:05-Sep-2016 Instruction Type:Patient Education Patient Instructions Indication:LUQ discomfort Start:05-Sep-2016 Instruction Type:Provider Instructions for Treatment Patient Instructions Indication:Retinal tear, left Start:05-Apr-2016 Instruction Type:Provider Instructions for Treatment Patient Instructions Indication:Anxiety Start:05-Apr-2016 Instruction Type:Provider Instructions for Treatment How to access health informa tion online Indication:Anxiety Start:19-Jan-2016 Instruction Type:Patient Education How to access health informa tion online - Detail Indication:Anxiety Start:19-Jan-2016 Instruction Type:Patient Education Patient Instructions Indication:Anxiety Start:19-Jan-2016 Instruction Type:Provider Instructions for Treatment Patient Instructions Indication:Abdominal pain, diffuse Start:06-Dec-2015 Instruction Type:Provider Instructions for Treatment How to access health informa tion online Indication:Diverticulitis of intestine without perforation or abscess without bleeding, unspecified part of intestinal tract Start:29-Nov-2015 Instruction Type:Patient Education How to access health informa tion online - Detail Indication:Diverticulitis of intestine without perforation or abscess without bleeding, unspecified part of intestinal tract Start:29-Nov-2015 Instruction Type:Patient Education Patient Instructions Indication:Diverticulitis of intestine without perforation or abscess without bleeding, unspecified part of intestinal tract Start:29-Nov-2015 Instruction Type:Provider Instructions for Treatment How to access health informa tion online Indication:Anxiety Start:04-Nov-2015 Instruction Type:Patient Education How to access health informa tion online - Detail Indication:Anxiety Start:04-Nov-2015 Instruction Type:Patient Education Patient Instructions Indication:Anxiety Start:04-Nov-2015 Instruction Type:Provider Instructions for Treatment How to access health informa tion online Indication:Stress reaction, emotional Start:20-Oct-2015 Instruction Type:Patient Education How to access health informa tion online - Detail Indication:Stress reaction, emotional Start:20-Oct-2015 Instruction Type:Patient Education Patient Instructions Indication:Stress reaction, emotional Start:20-Oct-2015 Instruction Type:Provider Instructions for Treatment Patient Instructions Indication:Skin infection Start:06-Mar-2014 Instruction Type:Provider Instructions for Treatment Patient Instructions Indication:Abdominal pain Start:03-Dec-2013 Instruction Type:Provider Instructions for Treatment [facility]; [facility] Work Phone: Instructions* Name Dates Details Patient Instructions Indication:Nonsmoker Start:15-Mar-2021 Instruction Type:Provider Instructions for Treatment How to Access Health Informa tion Online using Patient Portal and [employer]rd [employer] Apps Indication:Nonsmoker Start:15-Mar-2021 Instruction Type:Patient Education Patient Instructions Indication:Nonsmoker Start:11-Mar-2021 Instruction Type:Provider Instructions for Treatment How to Access Health Informa tion Online using Patient Portal and [employer]rd [employer] Apps Indication:Nonsmoker Start:11-Mar-2021 Instruction Type:Patient Education Patient Instructions Indication:Nonsmoker Start:01-Mar-2021 Instruction Type:Provider Instructions for Treatment How to Access Health Informa tion Online using Patient Portal and [employer]rd [employer] Apps Indication:Nonsmoker Start:01-Mar-2021 Instruction Type:Patient Education How to access health informa tion online Indication:Nonsmoker Start:20-Apr-2020 Instruction Type:Patient Education How to access health informa tion online - Detail Indication:Nonsmoker Start:20-Apr-2020 Instruction Type:Patient Education Patient Instructions Indication:BMI 40.0-44.9, adult Start:20-Apr-2020 Instruction Type:Provider Instructions for Treatment How to access health informa tion online Indication:Nonsmoker Start:06-Jun-2018 Instruction Type:Patient Education How to access health informa tion online - Detail Indication:Nonsmoker Start:06-Jun-2018 Instruction Type:Patient Education Patient Instructions Indication:Nonsmoker Start:06-Jun-2018 Instruction Type:Provider Instructions for Treatment How to access health informa tion online Indication:BMI 40.0-44.9, adult Start:21-May-2018 Instruction Type:Patient Education How to access health informa tion online - Detail Indication:BMI 40.0-44.9, adult Start:21-May-2018 Instruction Type:Patient Education Patient Instructions Indication:Left knee pain Start:21-May-2018 Instruction Type:Provider Instructions for Treatment How to access health informa tion online Indication:Non-smoker Start:13-Apr-2017 Instruction Type:Patient Education How to access health informa tion online - Detail Indication:Non-smoker Start:13-Apr-2017 Instruction Type:Patient Education Patient Instructions Indication:Non-smoker Start:13-Apr-2017 Instruction Type:Provider Instructions for Treatment How to access health informa tion online Indication:Leg pain Start:27-Mar-2017 Instruction Type:Patient Education How to access health informa tion online - Detail Indication:Leg pain Start:27-Mar-2017 Instruction Type:Patient Education Patient Instructions Indication:Leg pain Start:27-Mar-2017 Instruction Type:Provider Instructions for Treatment How to access health informa tion online Indication:Non-smoker Start:28-Dec-2016 Instruction Type:Patient Education How to access health informa tion online - Detail Indication:Non-smoker Start:28-Dec-2016 Instruction Type:Patient Education Patient Instructions Indication:Non-smoker Start:28-Dec-2016 Instruction Type:Provider Instructions for Treatment How to access health informa tion online Indication:BMI 35.0-35.9,adult Start:26-Oct-2016 Instruction Type:Patient Education How to access health informa tion online - Detail Indication:BMI 35.0-35.9,adult Start:26-Oct-2016 Instruction Type:Patient Education Patient Instructions Indication:BMI 35.0-35.9,adult Start:26-Oct-2016 Instruction Type:Provider Instructions for Treatment How to access health informa tion online Indication:Hypercholesteremia Start:05-Oct-2016 Instruction Type:Patient Education How to access health informa tion online - Detail Indication:Hypercholesteremia Start:05-Oct-2016 Instruction Type:Patient Education Patient Instructions Indication:Hypercholesteremia Start:05-Oct-2016 Instruction Type:Provider Instructions for Treatment How to access health informa tion online Indication:LUQ discomfort Start:05-Sep-2016 Instruction Type:Patient Education How to access health informa tion online - Detail Indication:LUQ discomfort Start:05-Sep-2016 Instruction Type:Patient Education Patient Instructions Indication:LUQ discomfort Start:05-Sep-2016 Instruction Type:Provider Instructions for Treatment Patient Instructions Indication:Retinal tear, left Start:05-Apr-2016 Instruction Type:Provider Instructions for Treatment Patient Instructions Indication:Anxiety Start:05-Apr-2016 Instruction Type:Provider Instructions for Treatment How to access health informa tion online Indication:Anxiety Start:19-Jan-2016 Instruction Type:Patient Education How to access health informa tion online - Detail Indication:Anxiety Start:19-Jan-2016 Instruction Type:Patient Education Patient Instructions Indication:Anxiety Start:19-Jan-2016 Instruction Type:Provider Instructions for Treatment Patient Instructions Indication:Abdominal pain, diffuse Start:06-Dec-2015 Instruction Type:Provider Instructions for Treatment How to access health informa tion online Indication:Diverticulitis of intestine without perforation or abscess without bleeding, unspecified part of intestinal tract Start:29-Nov-2015 Instruction Type:Patient Education How to access health informa tion online - Detail Indication:Diverticulitis of intestine without perforation or abscess without bleeding, unspecified part of intestinal tract Start:29-Nov-2015 Instruction Type:Patient Education Patient Instructions Indication:Diverticulitis of intestine without perforation or abscess without bleeding, unspecified part of intestinal tract Start:29-Nov-2015 Instruction Type:Provider Instructions for Treatment How to access health informa tion online Indication:Anxiety Start:04-Nov-2015 Instruction Type:Patient Education How to access health informa tion online - Detail Indication:Anxiety Start:04-Nov-2015 Instruction Type:Patient Education Patient Instructions Indication:Anxiety Start:04-Nov-2015 Instruction Type:Provider Instructions for Treatment How to access health informa tion online Indication:Stress reaction, emotional Start:20-Oct-2015 Instruction Type:Patient Education How to access health informa tion online - Detail Indication:Stress reaction, emotional Start:20-Oct-2015 Instruction Type:Patient Education Patient Instructions Indication:Stress reaction, emotional Start:20-Oct-2015 Instruction Type:Provider Instructions for Treatment Patient Instructions Indication:Skin infection Start:06-Mar-2014 Instruction Type:Provider Instructions for Treatment Patient Instructions Indication:Abdominal pain Start:03-Dec-2013 Instruction Type:Provider Instructions for Treatment [facility]; [facility] Work Phone: reason for referral (narrative)* Outpatient Procedure (Routine) - Authorized Specialty Diagnoses / Procedures Referred By Contac t Referred To Contact [facility] Diagnoses PMB (postmenopausal bleeding) Procedures ENDOMETRIAL BIOPSY ENDOMETRIAL BX W/WO ENDOCERVIX BX W/O DILAT SPX Marques Paul MD [address] [place] [address] [address] Referral ID Status Reason Start Date Expiration Date Visits Requested Visits Authorized [id number] Authorized Auto-Generat ed Referral 01/12/2023 01/12/2024 1 1 * Diagnostic Procedure Only (Routine) - Authorized Specialty Diagnoses / Procedures Referred By Yonis cutler Referred To Contact US IMAGING Diagnoses PMB (postmenopausal bleeding) Procedures US FEMALE PELVIS TRANSABD LTD US PELVIC NONOBSTETRIC IMAGE DCMTN LIMITED/F/U Marques Paul MD [address] [place] [address] Us Imaging Referral ID Status Reason Start Date Expiration Date Visits Requested Visits Authorized [id number] Authorized Auto-Generat ed Referral 01/12/2023 02/11/2024 1 1 * Diagnostic Procedure Only (Routine) - Authorized Specialty Diagnoses / Procedures Referred By Yonis cutler Referred To Contact US IMAGING Diagnoses PMB (postmenopausal bleeding) Procedures US FEMALE PELVIS TRANSVAG US TRANSVAGINAL Marques Paul MD [address] [place] [address] Us Imaging Referral ID Status Reason Start Date Expiration Date Visits Requested Visits Authorized [id number] Authorized Auto-Generat ed Referral 01/12/2023 02/11/2024 1 1 [facility] for referral (narrative)* Diagnostic Procedure Only (Routine) - Authorized Specialty Diagnoses / Procedures Referred By Yonis cutler Referred To Contact [facility] Diagnoses Encounter for screening mammogram for malignant neoplasm of breast Procedures KAUSHIK SCREENING W JIMMY SCREENING DIGITAL BREAST TOMOSYNTHESIS BI SCREENING MAMMOGRAPHY BI 2-VIEW BREAST INC CAD Marques Paul MD [address] [place] [address] [facility] [address] [place] [address] Referral ID Status Reason Start Date Expiration Date Visits Requested Visits Authorized [id number] Authorized Auto-Generat ed Referral 03/29/2023 04/27/2024 1 1 * Outpatient Procedure (Routine) - Pending Review Specialty Diagnoses / Procedures Referred By Yonis cutler Referred To Contact [facility] Diagnoses PMB (postmenopausal bleeding) Thickened endometrium Procedures ENDOMETRIAL BIOPSY ENDOMETRIAL BX W/WO ENDOCERVIX BX W/O DILAT SPX Marques Paul MD [address] [place] [address] [facility] [address] [place] [address] Referral ID Status Reason Start Date Expiration Date Visits Requested Visits Authorized [id number] Pending Review Auto-Generat ed Referral 03/29/2023 03/28/2024 1 1 [facility] for referral (narrative)* Diagnostic Procedure Only (Routine) - Closed Specialty Diagnoses / Procedures Referred By Yonis cutler Referred To Contact [facility] Diagnoses Encounter for screening mammogram for malignant neoplasm of breast Procedures KAUSHIK SCREENING W JIMMY SCREENING DIGITAL BREAST TOMOSYNTHESIS BI SCREENING MAMMOGRAPHY BI 2-VIEW BREAST INC CAD Marques Paul MD [address] [place] [address] [facility] [address] [place] [id number] Referral ID Status Reason Start Date Expiration Date V isits Requested Visits Authorized [id number] Closed Auto-Generate d Referral 03/29/2023 04/27/2024 1 1 [facility] for referral (narrative)* Diagnostic Procedure Only (Routine) - Closed Specialty Diagnoses / Procedures Referred By Yonis t Referred To Contact US IMAGING Diagnoses PMB (postmenopausal bleeding) Procedures US FEMALE PELVIS TRANSABD LTD US PELVIC NONOBSTETRIC IMAGE DCMTN LIMITED/F/U Marques Paul MD [address] [place] [address] [place] [address] Referral ID Status Reason Start Date Expiration Date V isits Requested Visits Authorized [id number] Closed Auto-Generate d Referral 01/12/2023 02/11/2024 1 1 * Diagnostic Procedure Only (Routine) - Closed Specialty Diagnoses / Procedures Referred By Yonis cutler Referred To Contact [facility] IMAGING Diagnoses PMB (postmenopausal bleeding) Procedures US FEMALE PELVIS TRANSVAG US TRANSVAGINAL Marques Paul MD [address] [place] [address] [place] [address] Referral ID Status Reason Start Date Expiration Date V isits Requested Visits Authorized [id number] Closed Auto-Generate d Referral 01/12/2023 02/11/2024 1 1 [facility]No reason for referral information availableWSelect [facility] Phone: Reason for visit Narrative* Diagnostic Procedure Only (Routine) - Closed Specialty Diagnoses / Procedures Referred By Yonis cutler Referred To Contact [facility] Diagnoses Encounter for screening mammogram for malignant neoplasm of breast Procedures KAUSHIK SCREENING W JIMMY SCREENING DIGITAL BREAST TOMOSYNTHESIS BI SCREENING MAMMOGRAPHY BI 2-VIEW BREAST INC CAD Marques Paul MD [address] [place] [address] [facility] [address] [place] [address] Referral ID Status Reason Start Date Expiration Date V isits Requested Visits Authorized [id number] Closed Auto-Generate d Referral 03/29/2023 04/27/2024 1 1 [facility] Family History No Family History Records FoundUnknown Family Member Name Dates Details Father Comments:[place], Heart/Lung, [place] BP 44 [place] Status:Active Mother Comments:[place], Emotional, He art/Lung, HBP, Ovarian disease, COPD Status:Active Unknown Family Member Name Dates Details Father Comments:[place], Heart/Lung, H BP 44 yo [place] Status:Active Mother Comments:[place], Emotional, He art/Lung, HBP, Ovarian disease, COPD Status:Active Unknown Family Member Name Dates Details Father Comments:[place], Heart/Lung, H BP 44 yo [place] Status:Active Mother Comments:[place], Emotional, He art/Lung, HBP, Ovarian disease, COPD Status:Active Unknown Family Member Name Dates Details Father Comments:[place], Heart/Lung, H BP 44 yo [place] Status:Active Mother Comments:[place], Emotional, He art/Lung, HBP, Ovarian disease, COPD Status:Active Unknown Family Member Name Dates Details Father Comments:[place], Heart/Lung, H BP 44 yo [place] Status:Active Mother Comments:[place], Emotional, He art/Lung, HBP, Ovarian disease, COPD Status:Active Unknown Family Member Name Dates Details Father Comments:[place], Heart/Lung, H BP 44 yo [place] Status:Active Mother Comments:[place], Emotional, He art/Lung, HBP, Ovarian disease, COPD Status:Active Unknown Family Member Name Dates Details Father Comments:[place], Heart/Lung, H BP 44 yo [place] Status:Active Mother Comments:[place], Emotional, He art/Lung, HBP, Ovarian disease, COPD Status:Active Relationship Condition Age at Onset Recorded Date/T paola mother Asthma Unknown Diabetes mellitus Unknown Cardiac disease Unknown Hypertension Unknown Coronary artery disease Unknown Chronic obstructive pulmonary disease Unk nown Rheumatoid arthritis Unknown sister Diabetes mellitus Unknown father Sudden cardiac Unknown Myocardial infarction Unknown Unknown Family Member Name Dates Details Father Comments:[place], Heart/Lung, H BP 44 yo [place] Status:Active Mother Comments:[place], Emotional, He art/Lung, HBP, Ovarian disease, COPD Status:Active Unknown Family Member Name Dates Details Father Comments:[place], Heart/Lung, H BP 44 yo [place] Status:Active Mother Comments:[place], Emotional, He art/Lung, HBP, Ovarian disease, COPD Status:Active Unknown Family Member Name Dates Details Father Comments:[place], Heart/Lung, H BP 44 yo [place] Status:Active Mother Comments:[place], Emotional, He art/Lung, HBP, Ovarian disease, COPD Status:Active Unknown Family Member Name Dates Details Father Comments:[place], Heart/Lung, H BP 44 yo [place] Status:Active Mother Comments:[place], Emotional, He art/Lung, HBP, Ovarian disease, COPD Status:Active Instructions Name Dates Details How to access health informa tion online Indication:Nonsmoker Start:20-Apr-2020 Instruction Type:Patient Education How to access health informa tion online - Detail Indication:Nonsmoker Start:20-Apr-2020 Instruction Type:Patient Education Patient Instructions Indication:BMI 40.0-44.9, adult Start:20-Apr-2020 Instruction Type:Provider Instructions for Treatment How to access health informa tion online Indication:Nonsmoker Start:06-Jun-2018 Instruction Type:Patient Education How to access health informa tion online - Detail Indication:Nonsmoker Start:06-Jun-2018 Instruction Type:Patient Education Patient Instructions Indication:Nonsmoker Start:06-Jun-2018 Instruction Type:Provider Instructions for Treatment How to access health informa tion online Indication:BMI 40.0-44.9, adult Start:21-May-2018 Instruction Type:Patient Education How to access health informa tion online - Detail Indication:BMI 40.0-44.9, adult Start:21-May-2018 Instruction Type:Patient Education Patient Instructions Indication:Left knee pain Start:21-May-2018 Instruction Type:Provider Instructions for Treatment How to access health informa tion online Indication:Non-smoker Start:13-Apr-2017 Instruction Type:Patient Education How to access health informa tion online - Detail Indication:Non-smoker Start:13-Apr-2017 Instruction Type:Patient Education Patient Instructions Indication:Non-smoker Start:13-Apr-2017 Instruction Type:Provider Instructions for Treatment How to access health informa tion online Indication:Leg pain Start:27-Mar-2017 Instruction Type:Patient Education How to access health informa tion online - Detail Indication:Leg pain Start:27-Mar-2017 Instruction Type:Patient Education Patient Instructions Indication:Leg pain Start:27-Mar-2017 Instruction Type:Provider Instructions for Treatment How to access health informa tion online Indication:Non-smoker Start:28-Dec-2016 Instruction Type:Patient Education How to access health informa tion online - Detail Indication:Non-smoker Start:28-Dec-2016 Instruction Type:Patient Education Patient Instructions Indication:Non-smoker Start:28-Dec-2016 Instruction Type:Provider Instructions for Treatment How to access health informa tion online Indication:BMI 35.0-35.9,adult Start:26-Oct-2016 Instruction Type:Patient Education How to access health informa tion online - Detail Indication:BMI 35.0-35.9,adult Start:26-Oct-2016 Instruction Type:Patient Education Patient Instructions Indication:BMI 35.0-35.9,adult Start:26-Oct-2016 Instruction Type:Provider Instructions for Treatment How to access health informa tion online Indication:Hypercholesteremia Start:05-Oct-2016 Instruction Type:Patient Education How to access health informa tion online - Detail Indication:Hypercholesteremia Start:05-Oct-2016 Instruction Type:Patient Education Patient Instructions Indication:Hypercholesteremia Start:05-Oct-2016 Instruction Type:Provider Instructions for Treatment How to access health informa tion online Indication:LUQ discomfort Start:05-Sep-2016 Instruction Type:Patient Education How to access health informa tion online - Detail Indication:LUQ discomfort Start:05-Sep-2016 Instruction Type:Patient Education Patient Instructions Indication:LUQ discomfort Start:05-Sep-2016 Instruction Type:Provider Instructions for Treatment Patient Instructions Indication:Retinal tear, left Start:05-Apr-2016 Instruction Type:Provider Instructions for Treatment Patient Instructions Indication:Anxiety Start:05-Apr-2016 Instruction Type:Provider Instructions for Treatment How to access health informa tion online Indication:Anxiety Start:19-Jan-2016 Instruction Type:Patient Education How to access health informa tion online - Detail Indication:Anxiety Start:19-Jan-2016 Instruction Type:Patient Education Patient Instructions Indication:Anxiety Start:19-Jan-2016 Instruction Type:Provider Instructions for Treatment Patient Instructions Indication:Abdominal pain, diffuse Start:06-Dec-2015 Instruction Type:Provider Instructions for Treatment How to access health informa tion online Indication:Diverticulitis of intestine without perforation or abscess without bleeding, unspecified part of intestinal tract Start:29-Nov-2015 Instruction Type:Patient Education How to access health informa tion online - Detail Indication:Diverticulitis of intestine without perforation or abscess without bleeding, unspecified part of intestinal tract Start:29-Nov-2015 Instruction Type:Patient Education Patient Instructions Indication:Diverticulitis of intestine without perforation or abscess without bleeding, unspecified part of intestinal tract Start:29-Nov-2015 Instruction Type:Provider Instructions for Treatment How to access health informa tion online Indication:Anxiety Start:04-Nov-2015 Instruction Type:Patient Education How to access health informa tion online - Detail Indication:Anxiety Start:04-Nov-2015 Instruction Type:Patient Education Patient Instructions Indication:Anxiety Start:04-Nov-2015 Instruction Type:Provider Instructions for Treatment How to access health informa tion online Indication:Stress reaction, emotional Start:20-Oct-2015 Instruction Type:Patient Education How to access health informa tion online - Detail Indication:Stress reaction, emotional Start:20-Oct-2015 Instruction Type:Patient Education Patient Instructions Indication:Stress reaction, emotional Start:20-Oct-2015 Instruction Type:Provider Instructions for Treatment Patient Instructions Indication:Skin infection Start:06-Mar-2014 Instruction Type:Provider Instructions for Treatment Patient Instructions Indication:Abdominal pain Start:03-Dec-2013 Instruction Type:Provider Instructions for Treatment Name Dates Details Patient Instructions Indication:Nonsmoker Start:01-Mar-2021 Instruction Type:Provider Instructions for Treatment How to Access Health Informa tion Online using Patient Portal and 3rd [employer] Apps Indication:Nonsmoker Start:01-Mar-2021 Instruction Type:Patient Education How to access health informa tion online Indication:Nonsmoker Start:20-Apr-2020 Instruction Type:Patient Education How to access health informa tion online - Detail Indication:Nonsmoker Start:20-Apr-2020 Instruction Type:Patient Education Patient Instructions Indication:BMI 40.0-44.9, adult Start:20-Apr-2020 Instruction Type:Provider Instructions for Treatment How to access health informa tion online Indication:Nonsmoker Start:06-Jun-2018 Instruction Type:Patient Education How to access health informa tion online - Detail Indication:Nonsmoker Start:06-Jun-2018 Instruction Type:Patient Education Patient Instructions Indication:Nonsmoker Start:06-Jun-2018 Instruction Type:Provider Instructions for Treatment How to access health informa tion online Indication:BMI 40.0-44.9, adult Start:21-May-2018 Instruction Type:Patient Education How to access health informa tion online - Detail Indication:BMI 40.0-44.9, adult Start:21-May-2018 Instruction Type:Patient Education Patient Instructions Indication:Left knee pain Start:21-May-2018 Instruction Type:Provider Instructions for Treatment How to access health informa tion online Indication:Non-smoker Start:13-Apr-2017 Instruction Type:Patient Education How to access health informa tion online - Detail Indication:Non-smoker Start:13-Apr-2017 Instruction Type:Patient Education Patient Instructions Indication:Non-smoker Start:13-Apr-2017 Instruction Type:Provider Instructions for Treatment How to access health informa tion online Indication:Leg pain Start:27-Mar-2017 Instruction Type:Patient Education How to access health informa tion online - Detail Indication:Leg pain Start:27-Mar-2017 Instruction Type:Patient Education Patient Instructions Indication:Leg pain Start:27-Mar-2017 Instruction Type:Provider Instructions for Treatment How to access health informa tion online Indication:Non-smoker Start:28-Dec-2016 Instruction Type:Patient Education How to access health informa tion online - Detail Indication:Non-smoker Start:28-Dec-2016 Instruction Type:Patient Education Patient Instructions Indication:Non-smoker Start:28-Dec-2016 Instruction Type:Provider Instructions for Treatment How to access health informa tion online Indication:BMI 35.0-35.9,adult Start:26-Oct-2016 Instruction Type:Patient Education How to access health informa tion online - Detail Indication:BMI 35.0-35.9,adult Start:26-Oct-2016 Instruction Type:Patient Education Patient Instructions Indication:BMI 35.0-35.9,adult Start:26-Oct-2016 Instruction Type:Provider Instructions for Treatment How to access health informa tion online Indication:Hypercholesteremia Start:05-Oct-2016 Instruction Type:Patient Education How to access health informa tion online - Detail Indication:Hypercholesteremia Start:05-Oct-2016 Instruction Type:Patient Education Patient Instructions Indication:Hypercholesteremia Start:05-Oct-2016 Instruction Type:Provider Instructions for Treatment How to access health informa tion online Indication:LUQ discomfort Start:05-Sep-2016 Instruction Type:Patient Education How to access health informa tion online - Detail Indication:LUQ discomfort Start:05-Sep-2016 Instruction Type:Patient Education Patient Instructions Indication:LUQ discomfort Start:05-Sep-2016 Instruction Type:Provider Instructions for Treatment Patient Instructions Indication:Retinal tear, left Start:05-Apr-2016 Instruction Type:Provider Instructions for Treatment Patient Instructions Indication:Anxiety Start:05-Apr-2016 Instruction Type:Provider Instructions for Treatment How to access health informa tion online Indication:Anxiety Start:19-Jan-2016 Instruction Type:Patient Education How to access health informa tion online - Detail Indication:Anxiety Start:19-Jan-2016 Instruction Type:Patient Education Patient Instructions Indication:Anxiety Start:19-Jan-2016 Instruction Type:Provider Instructions for Treatment Patient Instructions Indication:Abdominal pain, diffuse Start:06-Dec-2015 Instruction Type:Provider Instructions for Treatment How to access health informa tion online Indication:Diverticulitis of intestine without perforation or abscess without bleeding, unspecified part of intestinal tract Start:29-Nov-2015 Instruction Type:Patient Education How to access health informa tion online - Detail Indication:Diverticulitis of intestine without perforation or abscess without bleeding, unspecified part of intestinal tract Start:29-Nov-2015 Instruction Type:Patient Education Patient Instructions Indication:Diverticulitis of intestine without perforation or abscess without bleeding, unspecified part of intestinal tract Start:29-Nov-2015 Instruction Type:Provider Instructions for Treatment How to access health informa tion online Indication:Anxiety Start:04-Nov-2015 Instruction Type:Patient Education How to access health informa tion online - Detail Indication:Anxiety Start:04-Nov-2015 Instruction Type:Patient Education Patient Instructions Indication:Anxiety Start:04-Nov-2015 Instruction Type:Provider Instructions for Treatment How to access health informa tion online Indication:Stress reaction, emotional Start:20-Oct-2015 Instruction Type:Patient Education How to access health informa tion online - Detail Indication:Stress reaction, emotional Start:20-Oct-2015 Instruction Type:Patient Education Patient Instructions Indication:Stress reaction, emotional Start:20-Oct-2015 Instruction Type:Provider Instructions for Treatment Patient Instructions Indication:Skin infection Start:06-Mar-2014 Instruction Type:Provider Instructions for Treatment Patient Instructions Indication:Abdominal pain Start:03-Dec-2013 Instruction Type:Provider Instructions for Treatment Name Dates Details Patient Instructions Indication:Nonsmoker Start:11-Mar-2021 Instruction Type:Provider Instructions for Treatment How to Access Health Informa tion Online using Patient Portal and [employer]rd [employer] Apps Indication:Nonsmoker Start:11-Mar-2021 Instruction Type:Patient Education Patient Instructions Indication:Nonsmoker Start:01-Mar-2021 Instruction Type:Provider Instructions for Treatment How to Access Health Informa tion Online using Patient Portal and [employer]rd [employer] Apps Indication:Nonsmoker Start:01-Mar-2021 Instruction Type:Patient Education How to access health informa tion online Indication:Nonsmoker Start:20-Apr-2020 Instruction Type:Patient Education How to access health informa tion online - Detail Indication:Nonsmoker Start:20-Apr-2020 Instruction Type:Patient Education Patient Instructions Indication:BMI 40.0-44.9, adult Start:20-Apr-2020 Instruction Type:Provider Instructions for Treatment How to access health informa tion online Indication:Nonsmoker Start:06-Jun-2018 Instruction Type:Patient Education How to access health informa tion online - Detail Indication:Nonsmoker Start:06-Jun-2018 Instruction Type:Patient Education Patient Instructions Indication:Nonsmoker Start:06-Jun-2018 Instruction Type:Provider Instructions for Treatment How to access health informa tion online Indication:BMI 40.0-44.9, adult Start:21-May-2018 Instruction Type:Patient Education How to access health informa tion online - Detail Indication:BMI 40.0-44.9, adult Start:21-May-2018 Instruction Type:Patient Education Patient Instructions Indication:Left knee pain Start:21-May-2018 Instruction Type:Provider Instructions for Treatment How to access health informa tion online Indication:Non-smoker Start:13-Apr-2017 Instruction Type:Patient Education How to access health informa tion online - Detail Indication:Non-smoker Start:13-Apr-2017 Instruction Type:Patient Education Patient Instructions Indication:Non-smoker Start:13-Apr-2017 Instruction Type:Provider Instructions for Treatment How to access health informa tion online Indication:Leg pain Start:27-Mar-2017 Instruction Type:Patient Education How to access health informa tion online - Detail Indication:Leg pain Start:27-Mar-2017 Instruction Type:Patient Education Patient Instructions Indication:Leg pain Start:27-Mar-2017 Instruction Type:Provider Instructions for Treatment How to access health informa tion online Indication:Non-smoker Start:28-Dec-2016 Instruction Type:Patient Education How to access health informa tion online - Detail Indication:Non-smoker Start:28-Dec-2016 Instruction Type:Patient Education Patient Instructions Indication:Non-smoker Start:28-Dec-2016 Instruction Type:Provider Instructions for Treatment How to access health informa tion online Indication:BMI 35.0-35.9,adult Start:26-Oct-2016 Instruction Type:Patient Education How to access health informa tion online - Detail Indication:BMI 35.0-35.9,adult Start:26-Oct-2016 Instruction Type:Patient Education Patient Instructions Indication:BMI 35.0-35.9,adult Start:26-Oct-2016 Instruction Type:Provider Instructions for Treatment How to access health informa tion online Indication:Hypercholesteremia Start:05-Oct-2016 Instruction Type:Patient Education How to access health informa tion online - Detail Indication:Hypercholesteremia Start:05-Oct-2016 Instruction Type:Patient Education Patient Instructions Indication:Hypercholesteremia Start:05-Oct-2016 Instruction Type:Provider Instructions for Treatment How to access health informa tion online Indication:LUQ discomfort Start:05-Sep-2016 Instruction Type:Patient Education How to access health informa tion online - Detail Indication:LUQ discomfort Start:05-Sep-2016 Instruction Type:Patient Education Patient Instructions Indication:LUQ discomfort Start:05-Sep-2016 Instruction Type:Provider Instructions for Treatment Patient Instructions Indication:Retinal tear, left Start:05-Apr-2016 Instruction Type:Provider Instructions for Treatment Patient Instructions Indication:Anxiety Start:05-Apr-2016 Instruction Type:Provider Instructions for Treatment How to access health informa tion online Indication:Anxiety Start:19-Jan-2016 Instruction Type:Patient Education How to access health informa tion online - Detail Indication:Anxiety Start:19-Jan-2016 Instruction Type:Patient Education Patient Instructions Indication:Anxiety Start:19-Jan-2016 Instruction Type:Provider Instructions for Treatment Patient Instructions Indication:Abdominal pain, diffuse Start:06-Dec-2015 Instruction Type:Provider Instructions for Treatment How to access health informa tion online Indication:Diverticulitis of intestine without perforation or abscess without bleeding, unspecified part of intestinal tract Start:29-Nov-2015 Instruction Type:Patient Education How to access health informa tion online - Detail Indication:Diverticulitis of intestine without perforation or abscess without bleeding, unspecified part of intestinal tract Start:29-Nov-2015 Instruction Type:Patient Education Patient Instructions Indication:Diverticulitis of intestine without perforation or abscess without bleeding, unspecified part of intestinal tract Start:29-Nov-2015 Instruction Type:Provider Instructions for Treatment How to access health informa tion online Indication:Anxiety Start:04-Nov-2015 Instruction Type:Patient Education How to access health informa tion online - Detail Indication:Anxiety Start:04-Nov-2015 Instruction Type:Patient Education Patient Instructions Indication:Anxiety Start:04-Nov-2015 Instruction Type:Provider Instructions for Treatment How to access health informa tion online Indication:Stress reaction, emotional Start:20-Oct-2015 Instruction Type:Patient Education How to access [employer] online - Detail Indication:Stress reaction, emotional Start:20-Oct-2015 Instruction Type:Patient Education Patient Instructions Indication:Stress reaction, emotional Start:20-Oct-2015 Instruction Type:Provider Instructions for Treatment Patient Instructions Indication:Skin infection Start:06-Mar-2014 Instruction Type:Provider Instructions for Treatment Patient Instructions Indication:Abdominal pain Start:03-Dec-2013 Instruction Type:Provider Instructions for Treatment Chief Complaint and Reason for Visit Chief Complaint MORBID OBESITY BILAT KNEE PAIN/RX HERE Chief Complaint Admit Date SOB April 06, 2025 12:47 pm Chief Complaint Admit Date SOB April 06, 2025 12:47 pm 6 M FU May 14, 2025 1:42 pm Reason for Visit Admit Date Atrial fibrillation May 14, 2025 1:42 pm Hx of pulmonary embolus May 14, 2025 1:42pm Chief Complaint Admit Date SOB April 06, 2025 12:47 pm 6 M FU May 14, 2025 1:42 pm D68.69,G60.3,M62.81,R77.9,D72.810,G89.29 May 18, 2025 12:20pm AFIB May 26, 2025 12:11 pm Reason for Visit Admit Date Atrial fibrillation May 14, 2025 1:42 pm Elevated blood pressure reading April 1:42pm Hx of pulmonary embolus May 14, 2025 1:42pm Chief Complaint Admit Date AFIB May 26, 2025 12:11 pm Atrial fibrillation May 26, 2025 12:21 pm CUT MY LEG September 07, 2025 1 2:50pm 4 M FU September 21, 2025 2 :23pm Reason for Visit Admit Date Atrial fibrillation September 21, 2025 2 :23pm Elevated blood pressure reading September 21, 2025 2:23pm Hx of pulmonary embolus September 21 2:23pm Advance Directives No Advanced Directives Records Found Advance Directive Response Recorded Date/ Time Advance Directives No November 30, 2015 3:44pm Living Will No August 15, 2019 3:40pm Power of Senior Accounts Payable Specialist No July 3:40pm Advance Directive Response Recorded Date/ Time Advance Directives No November 30, 2015 2:44pm Living Will No August 15, 2019 2:40pm Power of Senior Accounts Payable Specialist No July 2:40pm Advance Directive Response Recorded Date/ Time Do you have a Healthcare Power of Senior Accounts Payable Specialist? No April 06, 2025 3:25pm Advance Directives No November 30, 2015 3:44pm Advance Directive Response Recorded Date/ Time Do you have a Healthcare Power of Senior Accounts Payable Specialist? Yes September 07, 2025 3:26pm Advance Directives No November 30, 2015 3:44pm Summary Purpose Additional Source Comments Goals (unrecognized section and content) Goals may be documented in a n alternate sectionGoals may be documented in an alternate sectionGoals may be documented in an alternate sectionGoals may be documented in an alternate sectionGoals may be documented in an alternate sectionGoals may be documented in an alternate sectionGoals may be documented in an alternate sectionGoals may be documented in an alternate sectionGoals may be documented in an alternate sectionGoals may be documented in an alternate section INFORMATION SOURCE (unrecogn ized section and content) DATE CREATED AUTHOR 11/02/2022 [facility] DATE CREATED AUTHOR AUTHOR'S ORGANIZ ATION 07/17/2023 [facility] DATE CREATED AUTHOR AUTHOR'S ORGANIZ ATION 01/28/2024 [facility] DATE CREATED AUTHOR AUTHOR'S ORGANIZ ATION 09/26/2025 [facility] Source Comments (unrecognize d section and content) In the event this informatio n is protected by the Federal Confidentiality of Alcohol and Drug Abuse Patient Records regulations: The Federal rules restrict any use of the information to criminally investigate or prosecute any alcohol or drug abuse patient.[facility] FoundationIn the event this information is protected by the Federal Confidentiality of Alcohol and Drug Abuse Patient Records regulations: The Federal rules restrict any use of the information to criminally investigate or prosecute any alcohol or drug abuse patient.[facility] FoundationIn the event this information is protected by the Federal Confidentiality of Alcohol and Drug Abuse Patient Records regulations: The Federal rules restrict any use of the information to criminally investigate or prosecute any alcohol or drug abuse patient.[facility] FoundationIn the event this information is protected by the Federal Confidentiality of Alcohol and Drug Abuse Patient Records regulations: The Federal rules restrict any use of the information to criminally investigate or prosecute any alcohol or drug abuse patient.[facility] FoundationIn the event this information is protected by the Federal Confidentiality of Alcohol and Drug Abuse Patient Records regulations: The Federal rules restrict any use of the information to criminally investigate or prosecute any alcohol or drug abuse patient.[facility] FoundationIn the event this information is protected by the Federal Confidentiality of Alcohol and Drug Abuse Patient Records regulations: The Federal rules restrict any use of the information to criminally investigate or prosecute any alcohol or drug abuse patient.[facility] FoundationIn the event this information is protected by the Federal Confidentiality of Alcohol and Drug Abuse Patient Records regulations: The Federal rules restrict any use of the information to criminally investigate or prosecute any alcohol or drug abuse patient.[facility] Reason for Visit (unrecogniz ed section and content) Reason Comments Patient Update Reason Comments Results Reason Comments Endometrial Biopsy Reason Comments Radiology US Specialty Diagnoses / Procedures Referred By Contac t Referred To Contact US IMAGING Diagnoses PMB (postmenopausal bleeding) Procedures US FEMALE PELVIS TRANSABD LTD US PELVIC NONOBSTETRIC IMAGE DCMTN LIMITED/F/U Marques Paul MD [address] [place] [address] [place] [address] Referral ID Status Reason Start Date Expiration Date V isits Requested Visits Authorized [id number] Closed Auto-Generate d Referral 01/12/2023 02/11/2024 1 1 Care Teams (unrecognized sec tion and content) Division Manager Relationship Specialty Start Date End Date Domi Handley DO PCP - General Internal Medicine 11/24/15 Team Status: Active Member Role Status Dates Dr. Domi Handley DO Family Provider Active Mary Cobb CORE JAVA ENGINEER, CORE JAVA ENGINEER-C Primary Care Provider Activ e Team Status: Inactive Member Role Status Dates Mary Cobb NP, CORE JAVA ENGINEER-C Primary Care Provider, Attending Provider, Referring Provider Active Division Manager Relationship Specialty Start Date End Date Domi Handley DO PCP - General Internal Medicine 11/24/15 Division Manager Relationship Specialty Start Date End Date Marlena Handleyerick Sweeney DO PCP - General Internal Medicine 11/24/15 Division Manager Relationship Specialty Start Date End Date TawandaDomi DO PCP - General Internal Medicine 11/24/15 Division Manager Relationship Specialty Start Date End Date Tawanda, Domirichard Sweeney DO PCP - General Internal Medicine 11/24/15 Division Manager Relationship Specialty Start Date End Date Hilda Handleyrichard Sweeney DO PCP - General Internal Medicine 11/24/15 Division Manager Relationship Specialty Start Date End Date Tawanda Domi Sweeney DO PCP - General Internal Medicine 11/24/15 Team Status: Inactive Member Role Status Dates Mary Cobb NP, CORE JAVA ENGINEER-C Primary Care Provider, Atte nding Provider Active Team Status: Active Member Role Status Dates Mary Cobb NP, CORE JAVA ENGINEER-C Primary Care Provider Activ e Team Status: Active Member Role Status Dates Mary oCbb CORE JAVA ENGINEER, CORE JAVA ENGINEER-C Primary Care Provider Activ e Start: April 06, 2025 Mary Cobb CORE JAVA ENGINEER, CORE JAVA ENGINEER-C Attending Provider Active Start: April 06, 2025 Mary Cobb CORE JAVA ENGINEER, CORE JAVA ENGINEER-C Referring Provider Active Start: April 06, 2025 Team Status: Inactive Member Role Status Dates Mary Cobb NP, CORE JAVA ENGINEER-C Primary Care Provider Activ e Start: April 06, 2025 End: April 06, 2025 Dr. Shawn Soni MD Emergency Provider Active Start: April 06, 2025 End: April 06, 2025 Team Status: Inactive Member Role Status Dates Mary Cobb NP, CORE JAVA ENGINEER-C Primary Care Provider Activ e Start: April 06, 2025 End: April 06, 2025 Dr. Shawn Soni MD Attending Provider Active Start: April 06, 2025 End: April 06, 2025 Dr. Shawn Soni MD Emergency Provider Active Start: April 06, 2025 End: April 06, 2025 Team Status: Inactive Member Role Status Dates Mary Cobb CORE JAVA ENGINEER, CORE JAVA ENGINEER-C Primary Care Provider Activ e Start: April 24, 2025 End: April 24, 2025 Mary Cobb CORE JAVA ENGINEER, CORE JAVA ENGINEER-C Attending Provider Active Start: April 24, 2025 End: April 24, 2025 Mary Cobb CORE JAVA ENGINEER, CORE JAVA ENGINEER-C Referring Provider Active Start: April 24, 2025 End: April 24, 2025 Team Status: Inactive Member Role Status Dates Mary Cobb CORE JAVA ENGINEER, CORE JAVA ENGINEER-C Primary Care Provider Activ e Start: May 14, 2025 End: May 14, 2025 Mary Cobb CORE JAVA ENGINEER, CORE JAVA ENGINEER-C Referring Provider Active Start: May 14, 2025 End: May 14, 2025 Zahra Renner CORE JAVA ENGINEER, CORE JAVA ENGINEER-C Attending Provider Active Start: May 14, 2025 End: May 14, 2025 Team Status: Active Member Role/Relationship Status Dates Mary Cobb CORE JAVA ENGINEER, CORE JAVA ENGINEER-C Primary Care Provider Activ e Team Status: Active Member Role/Relationship Status Dates Mary Cobb CORE JAVA ENGINEER, CORE JAVA ENGINEER-C Primary Care Provider Activ e Start: April 06, 2025 Mary Cobb CORE JAVA ENGINEER, CORE JAVA ENGINEER-C Attending Provider Active Start: April 06, 2025 Mary Cobb CORE JAVA ENGINEER, CORE JAVA ENGINEER-C Referring Provider Active Start: April 06, 2025 Team Status: Inactive Member Role/Relationship Status Dates Mary Cobb CORE JAVA ENGINEER, CORE JAVA ENGINEER-C Primary Care Provider Activ e Start: April 06, 2025 End: April 06, 2025 Dr. Shawn Soni MD Attending Provider Active Start: April 06, 2025 End: April 06, 2025 Dr. Shawn Soni MD Emergency Provider Active Start: April 06, 2025 End: April 06, 2025 Team Status: Inactive Member Role/Relationship Status Dates Mary Cobb CORE JAVA ENGINEER, CORE JAVA ENGINEER-C Primary Care Provider Activ e Start: April 24, 2025 End: April 24, 2025 Mary Cobb CORE JAVA ENGINEER, CORE JAVA ENGINEER-C Attending Provider Active Start: April 24, 2025 End: April 24, 2025 Mary Cobb CORE JAVA ENGINEER, CORE JAVA ENGINEER-C Referring Provider Active Start: April 24, 2025 End: April 24, 2025 Team Status: Inactive Member Role/Relationship Status Dates Mary Cobb CORE JAVA ENGINEER, CORE JAVA ENGINEER-C Primary Care Provider Activ e Start: May 14, 2025 End: May 14, 2025 Mary Cobb CORE JAVA ENGINEER, CORE JAVA ENGINEER-C Referring Provider Active Start: May 14, 2025 End: May 14, 2025 Zahra Renner CORE JAVA ENGINEER, CORE JAVA ENGINEER-C Attending Provider Active Start: May 14, 2025 End: May 14, 2025 Team Status: Active Member Role/Relationship Status Dates Mary Cobb CORE JAVA ENGINEER, CORE JAVA ENGINEER-C Primary Care Provider Activ e Start: May 18, 2025 Mary Cobb CORE JAVA ENGINEER, CORE JAVA ENGINEER-C Attending Provider Active Start: May 18, 2025 Mary Cobb CORE JAVA ENGINEER, CORE JAVA ENGINEER-C Referring Provider Active Start: May 18, 2025 Team Status: Inactive Member Role/Relationship Status Dates Mary Cobb CORE JAVA ENGINEER, CORE JAVA ENGINEER-C Primary Care Provider Activ e Start: May 26, 2025 End: May 26, 2025 Zahra Renner CORE JAVA ENGINEER, CORE JAVA ENGINEER-C Attending Provider Active Start: May 26, 2025 End: May 26, 2025 Zahra Renner CORE JAVA ENGINEER, CORE JAVA ENGINEER-C Referring Provider Active Start: May 26, 2025 End: May 26, 2025 Team Status: Active Member Role/Relationship Status Dates Mary Cobb CORE JAVA ENGINEER, CORE JAVA ENGINEER-C Primary care physician Acti ve Team Status: Inactive Member Role/Relationship Status Dates Mary Cobb CORE JAVA ENGINEER, CORE JAVA ENGINEER-C Primary care physician Acti ve Start: May 26, 2025 End: May 26, 2025 Zahra Renner CORE JAVA ENGINEER, CORE JAVA ENGINEER-C Attending physician Active Start: May 26, 2025 End: May 26, 2025 Zahra Renner CORE JAVA ENGINEER, CORE JAVA ENGINEER-C Referring Provider Active Start: May 26, 2025 End: May 26, 2025 Team Status: Active Member Role/Relationship Status Dates Mary Cobb CORE JAVA ENGINEER, CORE JAVA ENGINEER-C Primary care physician Acti ve Start: May 26, 2025 Dr. Stalin Ayers MD Attending physician Active Start: May 26, 2025 Zahra Renner CORE JAVA ENGINEER, CORE JAVA ENGINEER-C Referring Provider Active Start: May 26, 2025 Team Status: Inactive Member Role/Relationship Status Dates Mary Cobb CORE JAVA ENGINEER, CORE JAVA ENGINEER-C Primary care physician Acti ve Start: September 07, 2025 End: September 07, 2025 Dr. Dylan Herrera DO Attending physician Active Start: September 07, 2025 End: September 07, 2025 Dr. Dylan Herrera DO Emergency Departme nt Physician Active Start: September 07, 2025 End: September 07, 2025 Team Status: Active Member Role/Relationship Status Dates Mary Cobb CORE JAVA ENGINEER, CORE JAVA ENGINEER-C Primary care physician Acti ve Start: September 10, 2025 Mary Cobb CORE JAVA ENGINEER, CORE JAVA ENGINEER-C Attending physician Active Start: September 10, 2025 Mary Cobb NP, CORE JAVA ENGINEER-C Referring Provider Active Start: September 10, 2025 Team Status: Inactive Member Role/Relationship Status Dates Mary Cobb NP, CORE JAVA ENGINEER-C Primary care physician Acti ve Start: September 21, 2025 End: September 21, 2025 Mary Cobb NP, CORE JAVA ENGINEER-C Referring Provider Active Start: September 21, 2025 End: September 21, 2025 Zahra Renner NP, CORE JAVA ENGINEER-C Attending physician Active Start: September 21, 2025 End: September 21, 2025 FOR RECORDS PERTAINING TO PATIENTS WHO ARE OR HAVE BEEN ENROLLED IN A CHEMICAL DEPENDENCY/SUBSTANCEABUSE PROGRAM, SOME INFORMATION MAY BE OMITTED. This clinical summary was aggregated from multiple sources. Caution should be exercised in using it in the provision of clinical care. This summary normalizes information from multiple sources, and as a consequence, information in this document may materially change the coding, format and clinical context of patient data. In addition, data may be omitted in some cases. CLINICAL DECISIONS SHOULD BE BASED ON THE PRIMARY CLINICAL RECORDS. [employer] provides no warranty or guarantee of the accuracy or completeness of information in this document.
[2025-11-11 00:48] LABS: Troponin T High Sensitivity 44 ng/L (<=14)
--- NOTE | 2025-11-11 01:01 | PCM.HP.STD ---
HPI - General General Date of Admission: 11/11/25 HPI Narrative VICKIE NIEVES, is a 60 F who presents to the hospital with shortness of breath this morning that was relieved with albuterol which she has been using 4 times in the last week. She also develops severe abdominal pain but it was fairly vague in location and onset. She does have an umbilical hernia that she is aware of. She said that she felt ill this morning with fevers and chills but that has since resolved. In the emergency room she was found to be afebrile with a leukocytosis of 13.1. She was oxygenating fine on admission however she went into A-fib with RVR which improved with a dose of IV metoprolol at that time though her oxygen saturations dropped and she was ambulating from the bathroom and dropped to 87% on room air which is when she was placed on oxygen. During my conversation in the room for about 10 to 15 minutes I had turned her oxygen off and she maintained anywhere between 95 and 98% on room air. Significant radiologic workup with a CTA and CT of the abdomen pelvis was negative for any kind of acute pathology, CTA of the lung demonstrates pulmonary mosaic attenuation representing small airway disease. She does have a history of asthma but does not follow with a oil operator, she does see an integrative medicine individual who has been providing her with inhaled meropenem, the patient states that that she has approximately 13 different bacterial organisms in her lung and the first couple of treatments with the inhaled meropenem has removed 3 of those 13 organisms and that she has to go back to get treatment for the other 10. She states that she feels better since she started the inhaled meropenem, though the CTA does not show any type of infectious appearing etiology. [facility] Medical History Hx of pulmonary embolus Atrial fibrillation Atypical chest pain Arthralgia Frequent falls Dysphagia Anxiety Migraine Asthma Vitamin D deficiency Mitral valve prolapse Hypercholesterolemia Psoriasis IBS (irritable bowel syndrome) Diverticulitis Depression Home Medications ?Medication ?Instructions ?Recorded ?Last Taken ?Type lactobacillus combination no.8 3 3,000 mmu cells PO DAILY 03/07/21 Unknown History billion cell capsule (Adult Probiotic) multivitamin (Multiple Vitamins 1 tablet PO DAILY 03/07/21 04/05/25 History tablet) albuterol sulfate 2.5 mg/3 mL 2.5 mg inhalation BID PRN 04/06/25 04/06/25 History (0.083 %) solution for nebulization shortness of breath or wheezing soybean, fermented 50 mg capsule 50 mg PO BID 04/06/25 04/06/25 History (Nattokinase) tramadol 50 mg tablet 50 mg PO BID PRN severe pain 04/06/25 04/06/25 History metoprolol succinate 50 mg 50 mg PO DAILY #90 tabs 09/21/25 Unknown Rx tablet,extended release 24 hr acetaminophen 500 mg tablet 1,000 mg PO Q6H PRN pain 11/10/25 Unknown History (Tylenol Extra Strength) niacin 500 mg tablet 500 mg PO DAILY 11/10/25 Unknown History Allergy/AdvReac Type Severity Reaction Status Date / Time celecoxib (From Celebrex) Allergy Shortness Verified 11/10/25 17:36 of breath levofloxacin (From Levaquin) AdvReac Pain in Verified 11/10/25 17:36 joints Family History Mother Asthma Diabetes Heart disease Hypertension CAD (coronary artery disease) COPD (chronic obstructive pulmonary disease) Rheumatoid arthritis Sister Diabetes Heart disease Father , age 44 Sudden cardiac Myocardial infarction Surgical History s/p incision and drainage left shoulder blade abscess (~08/29/19) Detached retina S/P eye surgery S/P section Social History household members: spouse and children housing: house current occupational status: unemployed Smoking Status: Never smoker second hand exposure: Yes alcohol intake: former what type of physical activity do you participate in: none seatbelt use: always do you feel safe at home: Yes ROS Constitutional Constitutional: Reports fever(s); Denies chills, fatigue or malaise Eyes Eyes: Denies blurry vision ENT HEENT: Denies headache(s) or nasal discharge Cardiovascular Cardiovascular: Denies chest pain, dyspnea on exertion or syncope Respiratory/Chest Respiratory/Chest: Reports shortness of breath at rest; Denies cough or shortness of breath with exertion Gastrointestinal Gastrointestinal: Reports abdominal pain; Denies constipation, diarrhea, nausea or vomiting Genitourinary Genitourinary: Denies dysuria Neurologic Neurologic: Denies focal weakness, numbness or tremor(s) Psychiatric Psychiatric: Denies anxiety or depression Vital Signs Vital Signs Vital Signs: 11/10/25 17:36 11/10/25 18:45 11/10/25 19:26 Temperature 100.7 F H Temperature Source Oral Pulse Rate 142 H 141 H Respiratory Rate 22 H 22 H Respiratory Pattern Blood Pressure 150/87 H Blood Pressure Mean 108 Pulse Ox 100 88 Oxygen Delivery Method Room Air Room Air Oxygen Flow Rate (L/min) 11/10/25 19:30 11/10/25 19:45 11/10/25 20:00 Temperature Temperature Source Pulse Rate 136 H Respiratory Rate Respiratory Pattern Blood Pressure Blood Pressure Mean Pulse Ox 90 92 Oxygen Delivery Method Oxygen Flow Rate (L/min) 11/10/25 20:15 11/10/25 20:16 11/10/25 20:24 Temperature 99.6 F H Temperature Source Oral Pulse Rate 134 H Respiratory Rate 18 Respiratory Pattern Blood Pressure 97/65 97/65 Blood Pressure Mean 77 75 Pulse Ox 90 92 93 Oxygen Delivery Method Room Air Oxygen Flow Rate (L/min) 11/10/25 20:30 11/10/25 20:45 11/10/25 20:55 Temperature Temperature Source Pulse Rate 124 H 124 H 102 H Respiratory Rate 18 16 15 Respiratory Pattern Blood Pressure 103/72 69/59 L 95/72 Blood Pressure Mean 84 64 80 Pulse Ox 94 94 92 Oxygen Delivery Method Oxygen Flow Rate (L/min) 11/10/25 21:00 11/10/25 21:15 11/10/25 21:21 Temperature 99.8 F H Temperature Source Oral Pulse Rate 110 H 125 H 111 H Respiratory Rate 18 18 26 H Respiratory Pattern Blood Pressure 110/90 H Blood Pressure Mean 96 Pulse Ox 91 87 98 Oxygen Delivery Method Room Air Oxygen Flow Rate (L/min) 11/10/25 21:22 11/10/25 21:27 11/10/25 21:30 Temperature Temperature Source Pulse Rate 112 H 110 H 107 H Respiratory Rate 13 15 21 H Respiratory Pattern Blood Pressure 110/90 H 97/73 97/58 L Blood Pressure Mean 98 80 69 Pulse Ox 97 93 92 Oxygen Delivery Method Oxygen Flow Rate (L/min) 11/10/25 21:45 11/10/25 22:00 11/10/25 22:09 Temperature Temperature Source Pulse Rate 96 101 H Respiratory Rate 18 17 Respiratory Pattern Blood Pressure 90/55 L 101/55 L 119/86 H Blood Pressure Mean 66 69 98 Pulse Ox 83 93 Oxygen Delivery Method Room Air Oxygen Flow Rate (L/min) 11/10/25 22:12 11/10/25 22:14 11/10/25 22:15 Temperature Temperature Source Pulse Rate 100 Respiratory Rate 13 Respiratory Pattern Blood Pressure 107/65 Blood Pressure Mean 80 Pulse Ox 87 95 96 Oxygen Delivery Method Room Air Nasal Cannula Oxygen Flow Rate (L/min) 2 11/10/25 22:30 11/10/25 22:45 11/10/25 23:00 Temperature Temperature Source Pulse Rate 98 85 93 Respiratory Rate 16 16 17 Respiratory Pattern Blood Pressure 109/65 112/67 127/75 H Blood Pressure Mean 78 78 90 Pulse Ox 97 97 97 Oxygen Delivery Method Nasal Cannula Nasal Cannula Oxygen Flow Rate (L/min) 2 2 11/10/25 23:00 11/10/25 23:15 11/10/25 23:15 Temperature Temperature Source Pulse Rate 102 H 84 Respiratory Rate 18 11 L Respiratory Pattern Normal Blood Pressure 145/115 H 145/115 H Blood Pressure Mean 124 124 Pulse Ox 96 Oxygen Delivery Method Nasal Cannula Oxygen Flow Rate (L/min) 2 11/10/25 23:30 11/10/25 23:45 11/11/25 00:12 Temperature 97.8 F Temperature Source Pulse Rate 95 97 Respiratory Rate 16 14 Respiratory Pattern Blood Pressure 113/96 H 135/76 H Blood Pressure Mean 103 95 Pulse Ox 97 95 Oxygen Delivery Method Oxygen Flow Rate (L/min) Weight Weight: 253 lb 4.978 oz Body Mass Index (BMI) 44.9 Physical Exam Narrative General: Alert, Oriented x3, Cooperative, No apparent distress HEENT: Atraumatic, PERRLA, EOMI, Normocephalic Oral: Moist Mucosa Neck: Supple, No JVD Lungs: Diminished, Normal air movement, No rhonchi, No wheeze, No rales Cardiovascular: Regular rate, irregular rhythm, Normal S1, Normal S2, No murmurs Abdomen: Soft, Non Tender, Non-Distended, No Hepato-splenomegaly, reducible fat-containing umbilical hernia Extremities: No edema, Capillary Refill Less than 3 Seconds Skin: No rashes, No breakdown Musculoskeletal: No Tenderness to Palpation of Joints or Extremities Neurological: No focal neurological deficits, moves all extremities Psych/Mental Status: Normal Affect, Appropriate Results Lab / Micro Data 11/10/25 18:00 11/10/25 18:00 Labs: Laboratory Results - last 24 hr 11/10/25 18:00: WBC 13.1 H, RBC 4.49, Hgb 13.8, Hct 41.4, MCV 92.2, MCH 30.7, MCHC 33.3, RDW Std Deviation 44.2 H, RDW Coeff of Merlyn 13.1, Plt Count 248, MPV 9.9, Immature Gran % (Auto) 0.400, Neut % (Auto) 93.8 H, Lymph % (Auto) 1.7 L, Miller % (Auto) 3.1, Eos % (Auto) 0.5, Baso % (Auto) 0.5, Absolute Neuts (auto) 12.3 H, Absolute Lymphs (auto) 0.22 L, Nucleated RBC % 0, PT 13.7, INR 1.0, APTT 26.7, Sodium 137, Potassium 4.1, Chloride 99, Carbon Dioxide 24.9, Anion Gap 13, BUN 15, Creatinine 0.75, Est GFR (MDRD) Non-Af 90, BUN/Creatinine Ratio 19.4, Glucose 138 H, Lactic Acid < 1.0, Calcium 9.2, Total Bilirubin 0.58, AST 28, ALT 19, Alkaline Phosphatase 76, Total Protein 7.3, Albumin 4.2, Globulin 3.1, Albumin/Globulin Ratio 1.3 11/10/25 22:00: Urine Color Yellow, Urine Clarity Clear, Urine pH 7.0, Ur Specific Kimberly 1.010, Urine Protein 30 H, Urine Glucose (UA) Normal, Urine Ketones Negative, Urine Occult Blood 25 H, Urine Nitrite Negative, Urine Bilirubin Negative, Urine Urobilinogen Normal, Ur Leukocyte Esterase Negative, Urine RBC 0 SEEN, Urine WBC 0 SEEN, Ur Squamous Epith Cells 0 SEEN, Urine Bacteria 0 SEEN, Urine Mucus 0 SEEN 11/11/25 00:13: Troponin T High Sens 44 H D Micro: Microbiology 11/10/25 19:35 Mucosa - Nose SARS-CoV-2, Influenza & RSV (PCR) - Final Imaging Radiology Impression Chest X-Ray 11/10/25 18:33 IMPRESSION: No acute pulmonary disease. Reading Location: [facility] Abdomen/Pelvis CT 11/10/25 19:02 IMPRESSION: 1. Colonic diverticulosis without signs of diverticulitis. 2. Interval enlargement of the fat containing umbilical hernia. Reading Location: [facility] Chest CTA 11/10/25 22:44 IMPRESSION: No evidence of acute arterial pulmonary thromboembolism. Redemonstration of the bilateral pulmonary mosaic attenuation likely representing small airway disease, recommend clinical correlation. [facility] & Plan Assessment/Plan (1) Hypoxia: PLAN: Plan 1. Transient intermittent hypoxia in the setting of a history of asthma ? This is likely due to a combination of her asthma as well as going into A-fib while here in the hospital ? On my evaluation she was maintaining her oxygen saturations on room air ? And for an ambulatory pulse ox in the morning prior to discharge ? Plan for pulmonary referral for asthma management ? She uses natural gas heating at home and has only had an increase use of her asthma inhaler over the last week and 1/2 to 2 weeks 2. Leukocytosis ? Unclear etiology, she is afebrile ? Will recheck in the morning 3. A-fib with RVR ? She is currently out of A-fib and out of RVR ? This is not a new diagnosis for her, will increase her metoprolol to 75 mg p.o. daily for better heart rate control hopefully this will help with her shortness of breath ? She had been on Eliquis due to her new onset A-fib as well as a PE in the setting of COVID back in 2023 however she discontinued Eliquis due to increased bruising ? Based on cardiology notes she is in chronic A-fib however she continues to refuse blood thinners and that she takes nattokinase to thin her blood DVT: Ambulation Charges/Coding Visit Charges Inpatient E&M: 16471 Init Hosp L2
--- OUTSIDE RECORDS SUMMARY | 2025-11-11 01:16 | XMS RPT_ITS | CCD ---
Author Organization [facility] Care Team Providers Care Hurricane Tracker Name Role Phone Domi Handley Unavailable Dg Wylie Unavailable Rigoberto Wiggins Unavailable Denise Vilchis Unavailable Huber De Los Santos Unavailable Unavailable Fabian Nay Unavailable Zahra Head Unavailable Unavailable Shannon Cordova Unavailable Unavailable Zahra Renner Unavailable Unavailable Unavailable Unavailable Rigoberto Wiggins Unavailable Domi Handley DO Unavailable Dg Wylie Unavailable Rigoberto [...] Unavailable GERSON HARLEY DO Admitting Unavailable Michener BRUSH MATERIAL PREPARER-C, Mary K Primary Care Provider Un available Michener BRUSH MATERIAL PREPARER-C, Mary K Attending Provider Unava ilable Billyener BRUSH MATERIAL PREPARER-C, Mary K Referring Provider Unava ilable Zachariah EVERETT, Dr. Escobar Emergency Provider Zachariah EVERETT, Dr. Escobar Attending Provider Zurdo BRUSH MATERIAL PREPARER-C, Zahra Attending Provider [phone] Zurdo BRUSH MATERIAL PREPARER-C, Zahra Referring Provider Reza BRUSH MATERIAL PREPARER-C, Mary Page Primary Care Physician U navailjacky Renner BRUSH MATERIAL PREPARER-C, Zahra Attending Physician Armen EVERETT, Dr. Gant Attending Physician Javier SHANNON, Dr. Richardson Attending Physician Dr. Dylan Herrera DO Emergency Department Physic óscar Billyener BRUSH MATERIAL PREPARER-C, Mray K Attending Physician Unav ailable Billyener BRUSH MATERIAL PREPARER-C, Mary K Referring Provider Unava ilable Reza BRUSH MATERIAL PREPARER, Mary K Primary Care UnavailStalin Prado Attending Unavailable Zahra Renner NP Referring Unavailable Reza BRUSH MATERIAL PREPARER, Mary Page Referring Unavailabl e Reza BRUSH MATERIAL PREPARER, Mary K Primary Care Unavailabl e Zahra Renner NP Attending Unavailable Reza SOMERS, Mary Page Primary Care Unavailabl e Dick Ruiz NP Attending Unavailable Reza BRUSH MATERIAL PREPARER, Mary Page Referring Unavailabl e Michener BRUSH MATERIAL PREPARER, Mary K Primary Care Unavailabl e Michener BRUSH MATERIAL PREPARER, Mary K Attending Unavailabl e Michener BRUSH MATERIAL PREPARER, Mary K Referring Unavailabl e Michener BRUSH MATERIAL PREPARER, Mary K Primary Care Unavailabl e Billyener BRUSH MATERIAL PREPARER, Mary Page Attending Unavailabl e Billyener BRUSH MATERIAL PREPARER, Mary K Referring Unavailabl e Michener BRUSH MATERIAL PREPARER, Mary K Attending Unavailabl e Billyener BRUSH MATERIAL PREPARER, Mary K Referring Unavailabl e Billyener BRUSH MATERIAL PREPARER, Mary K Primary Care Unavailabl e Zahra Renner NP Attending Unavailable Zahra Renner NP Referring Unavailable Reza BRUSH MATERIAL PREPARER, Mary Page Primary Care Unavailabl e Reza BRUSH MATERIAL PREPARER, Mary Page Primary Care Unavailabl e Dylan Herrera Attending Shawn Farnsworth Attending Unavailable Reza BRUSH MATERIAL PREPARER, Mary Page Primary Care Unavailabl e Reza BRUSH MATERIAL PREPARER, Mary Page Primary Care Unavailabl e Reza BRUSH MATERIAL PREPARER, Mary Page Attending Unavailabl e Reza BRUSH MATERIAL PREPARER, Mary Page Referring Unavailabl e Reza BRUSH MATERIAL PREPARER, Mary Page Primary Care Unavailabl e Reza BRUSH MATERIAL PREPARER, Mary Kaylee Attending Unavailabl e Reza BRUSH MATERIAL PREPARER, Mary Kaylee Referring Unavailabl e Reza BRUSH MATERIAL PREPARER, Mary K Primary Care Unavailabl e Reza BRUSH MATERIAL PREPARER, Mary Page Attending Unavailabl e Reza BRUSH MATERIAL PREPARER, Mary Page Referring Unavailabl e Reza BRUSH MATERIAL PREPARER, Mary K Primary Care Unavailabl e Zurdo BRUSH MATERIAL PREPARER, Zahra Attending Unavailable Reza BRUSH MATERIAL PREPARER, Mary Kaylee Referring Unavailabl e Allergies Allergy [...] [CELECOXIB] Drug Allergy 8 Shortness of Breath [facility] Work Phone: (8 sources) Lactase; Translations: [LACTASE] Drug Allergy 6 [facility] Work Phone: (1 source) celecoxib Drug Allergy 5 [facility] Repository (1 source) levoFLOXacin Drug Allergy 5 [facility] Repository Medications Current Medications Medication Drug Class(es) [...] 1 {Inhaler} Refills: 0 Ordered: 21-May-2018 Slarb VARIETY PERFORMER, Shannon Start : 13-Apr-2017 End : 21-May-2018 [...] capsule by mouth two times weekly ERGOCALCIFEROL, 20258IKHQ (Oral Capsule) 1 Capsule twice weekly for [...] (16 sources) Corticosteroid Start: 01-09-2014 End: 03-27-2017 Jordan-Smoothe/FS Body 0.01 % External Oil apply liberally [...] 1 {Misc} Refills: 0 Ordered: 03-Oct-2006 KENNETH aPul LPN Start : 03-Oct-2006 End : 11-Feb-2007 [...] 2024 1:36pm May 16, 2024 11:32am nystatin 040904 unt/ml oral suspension (16 sources) Polyene Antifungal Start: 11-03-2010 End: 11-13-2010 NYSTATIN, 968820HNDM/ML (Mouth/Throat Suspension) 5 Suspension tid swish and [...] Facility Cardiology Visit Reporton Cardiology Visit Report [facility] [address] [place], [place] [address] OFFICE VISIT Date of Service: 09/21/25 MR#: [id number] Acct: [id number] Name: VICKIE BARLOW Rep #: [id number] : 1965 Provider: LYNDSEY Eric rts Age/Sex: 60/F Location: [facility] Status: Signed HPI HPI History of Present Illness Details: This is a pleasant 60-year-old lady who presents for evaluation of atrial fibrillation. She said that while she was in [place] in November of 2023, she got short [...] (%) 100 Intake Visit Reasons: 4 M Guide Rail Cleaner Required: No Is patient in pain?: No [...] No Palpitati (more content not included)... Normal [facility] L3410.9992on 09-17-2025 [facility]. COMMENT Normal . [facility] Comment on above: Order Comment: 72935 3MG RBC RMT Result Comment: Test Ordered: 405061 Magnesium, RBC Test(s) 179944-Frleicvbq, RBC was developed and its performance characteristics determined by [facility]. It has not been cleared or approved by the Food and Drug Administration. Magnesium, RBC 5.1 mg/dL Reference Range: 3.7-7.0 Performed at: [address] [id number] Digital Forensic Examiner: Juan Pablo Grady MD, Phone: [phone] Performed at: [address] [id number] Digital Forensic Examiner: Randy Noav PhD, Phone: [phone] Performed By: #### L 100.0100, L500.2500, L501.4021 #### [facility] [address] [place], [place], [address] L3410.9994on 09-16-2025 [facility]. 2 COMMENT Normal . [facility] Comment on above: Order Comment: 01023 8AMINO ACID QN PLASMA FRZ Result Comment: Test Ordered: 445687 Amino Acid Profile, Qn, Plasma Test(s) 391350-Jaeivvi; 148187-Xanqrlvol; 412268- Hydroxyproline; 444505-Jawuumgrv; 356285-Ambwcp; 415690- Asparagine; 316590-Myeglbjbg; 373058-Xsyiavwty; 368414- Sarcosine; 647624-Vuiby-mkkbwwvexsmv; 481400-Zivrubh; 491158-Krqvrpt; 720151-Lsktpwp; 281057-Bmlzencjnd; 879934- Alpha-aminobutyrate; 653635-Fxgfay; 902882-Dpfapai; 173721- Methionine; 371337-Tjdfbfltpypuso; 532522-Iwddrwhzannei; 049658-Umtffhcnjwqrsm; 179214-Vpxlhyrftl; 328231-Ehqudun; 468953-Kcyzjuyn; 984589-Itlfmcrdpfeeq; 151672- Argininosuccinate; 534408-Bajf-mvnebuu; 015050- Beta-aminoisobutyrate; 362386-Abpleexluda; 806863- Gamma-aminobutyrate; 352551-Jkocvykxds; 885009- Hydroxylysine; 510323-Ldemarlvw; 912857-Wackev; 642834- Histidine; 999337-Kshuqmiy was developed and its performance characteristics determined by [employer]. It has not been cleared or approved [...] metabolism, please contact our Biochemical Geneticists at [phone] oneforty([phone]), [facility] [employer] Customer [employer], [place], [place]. Methodology Comment Reference Range: . Amino acid concentrations were obtained by LC-MS/MS analysis. Performed at: [address] [id number] Digital Forensic Examiner: Juan Pablo Grady MD, Phone: [phone] Performed at: TG - [facility] [address] [place], [place] [id number] Digital Forensic Examiner: Regina [facility], Phone: [phone] Performed at: CB - [facility] [place] [address] [place], [place] [id number] Digital Forensic Examiner: Randy Nova PhD, Phone: [phone] Performed By: #### L 100.0100, L500.2500, L519.4023 #### [facility] [address] [facility] [place], [address] Emergency Department Summary on 09-07-2025 Emergency Department Summary [facility] Medical Records Department [address] [place] [address] Emergency Department Summary 09/07/25 MR#: [id number] Acct: [id number] Name: VICKIE BARLOW Rep #: [id number] : 1965 60 From: Dylan Herrera DO PCP: Mary Cobb, BRUSH MATERIAL PREPARER-C Status:REG ER Location: ED HPI History of [...] she does not want one here today. [facility] Medical History Hx of pulmonary embolus Atrial [...] following commands knew that she was at [facility] year is 2024 Skin: Patient has [...] Delivery M (more content not included)... Normal [facility] L3410.9992on 05-22-2025 [facility]. COMMENT Normal . [facility] Comment on above: Order Comment: 45027 8AMINIO ACID PROFILE,GN, PLAZMA Result Comment: Test Ordered: [id number] Amino Acid Profile, Qn, Plasma Test(s) 091761-Qfaqeng; 866189-Aivumtokd; 534047- Hydroxyproline; 853434-Kofsmanvm; 697575-Urzqzz; 851170- Asparagine; 058677-Muvuenuai; 028720-Dchhlfouf; 219712- Sarcosine; 495696-Cailm-ypcrvidwewjn; 195035-Flhdwtb; 933890-Rwllfwx; 672062-Rbayxvi; 403022-Jegnbodwxx; 914112- Alpha-aminobutyrate; 671061-Xmluxr; 242143-Yezkovm; 217583- Methionine; 603225-Ckbxoxustbdjhx; 035722-Btvswpzojzrqq; 563773-Wlbflsdjjuwayv; 431604-Jifcrhogqe; 119514-Kazxtqn; 427098-Kjefowad; 090922-Wppvuqatnhuqm; 626780- Argininosuccinate; 743498-Vchm-akrxszn; 148759- Beta-aminoisobutyrate; 632653-Wzghxjxmgqx; 354017- Gamma-aminobutyrate; 138808-Cktfdqttot; 621854- Hydroxylysine; 031159-Plrjylrji; 840152-Deofbb; 094568- Histidine; 017989-Rzpcjuzp was developed and its performance characteristics determined by [employer]. It has not been cleared or approved [...] Range: . Technical Component analysis performed at [facility] Professional Component interpretation performed by: Laura Bonilla, PhD, [facility] Director, [employer] [facility] [address] To discuss these results or other testing for inborn errors of metabolism, please contact our Biochemical Geneticists at [phone] [phone]), [facility] [employer] Customer Service, [place], [place]. Methodology Comment Reference Range: . Amino acid concentrations were obtained by LC-MS/MS analysis. Performed at: [address] [id number] Digital Forensic Examiner: Juan Pablo Grady MD, Phone: [phone] Performed at: [facility] [address] [place], [place] [id number] Digital Forensic Examiner: Regina [facility], Phone: [phone] Performed at: [address] [id number] Digital Forensic Examiner: Randy Nova PhD, Phone: [phone] Performed By: #### L 100.0100, L500.2500, L501.4021 #### [facility] [address] [place], [place], [address] L3410.9992on 05-20-2025 [facility]. COMMENT Normal . [facility] Comment on above: Order Comment: 37545 3MAGNESIUM,RBC Result Comment: Test Ordered: 322285 Magnesium, RBC Test(s) 226342-Vsuxbqont, RBC was developed and its performance characteristics determined by [facility]. It has not been cleared or approved by the Food and Drug Administration. Magnesium, RBC mg/dL Reference Range: . Test not performed. The required specimen for the test ordered was not received. RECEIVED PLASMA REQUIRES RBC [facility] AT YOUR FACILITY ON 05-20-2025 Performed at: [address] [id number] Digital Forensic Examiner: Randy Nova PhD, Phone: [phone] Performed at: [address] [id number] Digital Forensic Examiner: Juan Pablo Grady MD, Phone: [phone] Performed By: #### L 100.0100, L500.2500, L501.4021 #### [facility] [address] [place], [address] Cardiology Visit Reporton Cardiology Visit Report [facility] [address] [place] [address] OFFICE VISIT Date of Service: 05/14/25 MR#: [id number] Acct: [id number] Name: VICKIE BARLOW Rep #: [id number] : 1965 Provider: LYNDSEY rios Age/Sex: 59/F [place] [facility] [place] Status: Signed HPI HPI History of Present Illness Details: This is a pleasant 59-year-old lady who presents for evaluation of atrial fibrillation. She said that while she was in [place] in November of 2023, she got short [...] air Intake Visit Reasons: 6 M FU Guide Rail Cleaner Required: No Accompanied by: Self Is patient [...] do you (more content not included)... Normal [facility] CRP, High Sensitivity 624727 on 04-26-2025 CRP, HIGH SENS 8.42 mg/L High 0.00-3.00 [facility] Comment on above: Result Comment: Rela tive Risk for Future Cardiovascular Event Low <1.00 Average 1.00 - 3.00 High >3.00 Performed at: [employer] [place] [id number] Digital Forensic Examiner: Randy Nova PhD, Phone: [phone] Performed By: #### L 1000100, L500.2500, L507.9234 #### [facility] [address] [facility] [place], [address] Absolute lymphocyte countOrd ered By: Mary Cobb on 04-24-2025 Lymphocytes Auto (Unsp spec) [#/Vol] 0.53 10*3/uL Low 0.83-4.51 [facility] Absolute neutrophil countOrd ered By: Mary Cobb on 04-24-2025 Neutrophils (Bld) [#/Vol] 6.1 10*3/uL 2.0-7.7 [facility] Anion gap in Serum or Plasma Ordered By: Mary Cobb on 04-24-2025 Anion gap [Moles/Vol] 14 mmol/L 5-15 [facility] Automated blood erythrocyte countOrdered By: Mary Cobb on 04-24-2025 RBC (Bld) [#/Vol] 4.32 10*6/uL Normal 4.2-5.4 [facility] Comment on above: Performed By: #### L 100.0100, L500.2500, L501.4021 #### [facility] [address] [place], [address] Automated blood hematocrit ( percentage)Ordered By: Mary Cobb on 04-24-2025 Hematocrit (Bld) [Volume fraction] 42.1 % Normal 37-47 [facility] Comment on above: Performed By: #### L 100.0100, L500.2500, L501.4021 #### [facility] [address] [place], [address] Automated lymphocyte count a s percentage of total leukocytesOrdered By: Mary Cobb on 04-24-2025 Lymphocytes/100 WBC Auto (Unsp spec) 6.6 % Low 19-41 [facility] BUN/creatinine ratioOrdered By: Mayr Cobb on 04-24-2025 Urea nitrogen/Creatinine [Mass ratio] 16.0 mg/mg 10-20 [facility] Basophil percentageOrdered B y: Mary Cobb on 04-24-2025 Basophils/100 WBC (Bld) 1.1 % High 0-1 [facility] Comment on above: Performed By: #### L 100.0100, L500.2500, L501.4021 #### [facility] [address] [place], [address] Bilirubin, totalOrdered By: Mary Cobb on 04-24-2025 Bilirubin [Mass/Vol] 0.63 mg/dL 0.00-1.30 [facility] C-reactive protein measureme nt by high sensitivity methodOrdered By: Mary Cobb on 04-24-2025 C-reactive protein measurement by high sensitivity method 8.42 mg/L High 0.00-3.00 [facility] Comment on above: Relative Risk for Fu ture Cardiovascular Event Low <1.00 Average 1.00 - 3.00 High >3.00Performed at: CB - [facility] [id number] [place], [place] [id number] Director: Randy Nova PhD, Phone: [phone] CBC W/Diff, Automatedon 05 0-2024 Absolute Lymph 0.53 X10 3/uL Low 0.83-4.51 [facility] Comment on above: Performed By: #### L 100.0100, L500.2500, L501.4021 #### [facility] [address] [place], [address] Absolute Neut 6.1 X10 3/uL Normal 2.0-7.7 [facility] Comment on above: Performed By: #### L 100.0100, L500.2500, L501.4021 #### [facility] [address] [place], [address] IG% 0.200 Normal 0.0-0.9 [facility] Comment on above: Result Comment: IG% - Immature Granulocytes (promyelocytes, myelocytes and metamyelocytes) > 1% indicates that a LEFT SHIFT is Present. Performed By: #### L 100.0100, L500.2500, L501.4021 #### [facility] [address] [place], [address] Lymphocytes/100 WBC (Bld) 6.6 % Low 19-41 [facility] Comment on above: Performed By: #### L 100.0100, L500.2500, L501.4021 #### [facility] [address] [place], [address] Nucleated RBC (Bld) [#/Vol] 0 10*3/uL Normal 0-5 [facility] Comment on above: Performed By: #### L 100.0100, L500.2500, L501.4021 #### [facility] [address] [place], [address] RDW SD 49.7 fl High 35.1-43.9 [facility] Comment on above: Performed By: #### L 100.0100, L500.2500, L501.4021 #### [facility] [address] [place], [address] CRPon 04-24-2025 C-REACTIVE PROT 11.80 mg/L High 0.0-3.0 [facility] Comment on above: Performed By: #### L 100.0100, L500.2500, L501.4021 #### [facility] [address] [place], [address] Carbon dioxide, total [Moles /volume] in Central venous bloodOrdered By: Mary Cobb on 04-24-2025 CO2 [Moles/Vol] 23.1 mmol/L 21.0-32.0 [facility] Chloride assayOrdered By: Lewis Cobb on 04-24-2025 Chloride [Moles/Vol] 97 mmol/L Low 98-108 [facility] Comprehensive Metabolic Prof ilon 04-24-2025 Albumin [Mass/Vol] 4.2 g/dL Normal 3.4-4.8 [facility] Comment on above: Result Comment: AMENDED REPORT 04/24/251736 ALB previously reported as: 0.4 L g/dL Performed By: #### L 100.0100, L500.2500, L501.4021 #### [facility] [address] [place], [address] Albumin/Globulin [Mass ratio] 2.7 {ratio} High 0.9-2.4 [facility] Comment on above: Result Comment: AMENDED REPORT 04/24/251736 A/G previously reported as: 0.1 L RATIO Performed By: #### L 100.0100, L500.2500, L501.4021 #### [facility] [address] [place], [address] Globulin (S) [Mass/Vol] 1.6 g/dL Low 2.2-4.2 [facility] Comment on above: Result Comment: AMENDED REPORT 04/24/25 1737 GLOB previously reported as: 5.3 H g/dL Performed By: #### L 100.0100, L500.2500, L501.4021 #### [facility] [address] [place], [address] Eosinophil percentageOrdered By: Mary Cobb on 04-24-2025 Eosinophils/100 WBC (Bld) 9.5 % High 0-5 [facility] Comment on above: Performed By: #### L 100.0100, L500.2500, L501.4021 #### [facility] [address] [place], [address] Erythrocyte Sed Rateon 04-24 SED RATE 18 mm/hr Normal 0-30 [facility] Comment on above: Performed By: #### L 100.0100, L500.2500, L501.4021 #### [facility] [address] [place], [address] Erythrocyte distribution wid th ratioOrdered By: Mary Cobb on 04-24-2025 Erythrocyte distribution width (RBC) [Ratio] 14.0 % Normal 11.6-14.6 [facility] Comment on above: Performed By: #### L 100.0100, L500.2500, L501.4021 #### [facility] [address] [place], [address] Erythrocyte distribution wid th standard deviationOrdered By: Mary Cobb on 04-24-2025 Erythrocyte distribution width (RBC) [Ratio] 49.7 fl High 35.1-43.9 [facility] Erythrocyte sedimentation ra teOrdered By: Mary Cobb on 04-24-2025 ESR (Bld) [Velocity] 18 mm/h 0-30 [facility] Glomerular filtration rate ( GFR) estimation/1.73 sq m using serum, plasma, or whole bOrdered By: Mary Cobb on 04-24-2025 GFR/1.73 sq M.predicted among non-blacks MDRD (S/P/Bld) [Vol rate/Area] 86 mL/min/{1.73_m2} >60 [facility] Comment on above: mL/min/1.73m2 CKD-EP I Creatinine Equation (2020) Hemoglobin measurementOrdere d By: Mary Cobb on 04-24-2025 Hemoglobin (Bld) [Mass/Vol] 13.6 g/dL Normal 12.0-15.0 [facility] Comment on above: Performed By: #### L 100.0100, L500.2500, L501.4021 #### [facility] [address] [place], [address] Immature granulocytes/100 WB C Auto (Bld)Ordered By: Mary Cobb on 04-24-2025 Immature granulocytes/100 WBC (Bld) 0.200 % 0.0-0.9 [facility] Comment on above: IG% - Immature Granu locytes (promyelocytes, myelocytes and metamyelocytes) > 1% indicates that a LEFT SHIFT is Present. Laboratory - Chemistry and C hemistry - challengeOrdered By: Mary Cobb on 04-24-2025 AST [Catalytic activity/Vol] 39 U/L High <32 [facility] MCV (mean corpuscular volume ) determinationOrdered By: Mary Cobb on 04-24-2025 MCV (RBC) [Entitic vol] 97.5 fL Normal 81-99 [facility] Comment on above: Performed By: #### L 100.0100, L500.2500, L501.4021 #### [facility] [address] [place], [address] Magnesiumon 04-24-2025 Magnesium [Mass/Vol] 2.4 mg/dL High 1.5-2.2 [facility] Comment on above: Performed By: #### L 501.5200, L500.4050 #### [facility] [address] [place], [address] Magnesium measurement (mass/ volume)Ordered By: Mary Cobb on 04-24-2025 Magnesium (Unsp spec) [Mass/Vol] 2.4 mg/dL High 1.5-2.2 [facility] Mean corpuscular hemoglobin (MCH) determinationOrdered By: Mary Cobb on 04-24-2025 MCH (RBC) [Entitic mass] 31.5 pg Normal 27.0-32.0 [facility] Comment on above: Performed By: #### L 100.0100, L500.2500, L501.4021 #### [facility] [address] [place], [address] Mean corpuscular hemoglobin concentration (MCHC) determinationOrdered By: Mary Cobb on 04-24-2025 MCHC (RBC) [Mass/Vol] 32.3 g/dL Normal 32-36 [facility] Comment on above: Performed By: #### L 100.0100, L500.2500, L501.4021 #### [facility] [address] [place], [address] Mean platelet volume determi nationOrdered By: Mary Cobb on 04-24-2025 Platelet mean volume (Bld) [Entitic vol] 11.2 fL Normal 6.2-12.0 [facility] Comment on above: Performed By: #### L 100.0100, L500.2500, L501.4021 #### [facility] [address] [place], [address] Monocyte percentageOrdered B y: Mary Cobb on 04-24-2025 Monocytes/100 WBC (Bld) 7.2 % Normal 0-10 [facility] Comment on above: Performed By: #### L 100.0100, L500.2500, L501.4021 #### [facility] [address] [place], [address] Neutrophil percentageOrdered By: Mary Cobb on 04-24-2025 Neutrophils/100 WBC (Bld) 75.4 % High 47-70 [facility] Comment on above: Performed By: #### L 100.0100, L500.2500, L501.4021 #### [facility] [address] [place], [address] Nucleated red blood cell per centageOrdered By: Mary Cobb on 04-24-2025 Nucleated RBC/100 WBC (Bld) [Ratio] 0 % 0-5 [facility] Platelet countOrdered By: Lewis Cobb on 04-24-2025 Platelets (Bld) [#/Vol] 260 10*3/uL Normal 150-450 [facility] Comment on above: Performed By: #### L 100.0100, L500.2500, L501.4021 #### [facility] [address] [place], [address] Potassium measurement (mass/ volume)Ordered By: Mary Cobb on 04-24-2025 Potassium (Unsp spec) [Mass/Vol] 4.8 mmol/L 3.3-5.1 [facility] Serum creatinine measurement (mass/volume)Ordered By: Mary Cobb on 04-24-2025 Creatinine [Mass/Vol] 0.79 mg/dL 0.70-1.20 [facility] Serum globulin measurementOr dered By: Mary Cobb on 04-24-2025 Globulin (S) [Mass/Vol] 1.6 g/dL Low 2.2-4.2 [facility] Comment on above: Previous reported re sult: 5.3 g/dLEdited by: JAIR on 04/24/25:1737 AMENDED REPORT 04/24/25 1737 GLOB previously reported as: 5.3 H g/dL Serum glucose measurement (m ass/volume)Ordered By: Mary Cobb on 04-24-2025 Glucose [Mass/Vol] 76 mg/dL 70-99 [facility] Serum or plasma C reactive p rotein measurement (mass/volume)Ordered By: Mary Cobb on 04-24-2025 CRP [Mass/Vol] 11.80 mg/L High 0.0-3.0 [facility] Serum or plasma alanine lan otransferase (ALT) measurementOrdered By: Mary Cobb on 04-24-2025 ALT [Catalytic activity/Vol] 34 U/L <35 [facility] Serum or plasma albumin yuliya urement (mass/volume)Ordered By: Mary Cobb on 04-24-2025 Albumin [Mass/Vol] 4.2 g/dL 3.4-4.8 [facility] Comment on above: Previous reported re sult: 0.4 g/dLEdited by: YUMIKOS on 04/24/25:1737 AMENDED REPORT 04/24/251736 ALB previously reported as: 0.4 L g/dL Serum or plasma albumin/glob ulin mass ratioOrdered By: Mary Cobb on 04-24-2025 Albumin/Globulin [Mass ratio] 2.7 {ratio} High 0.9-2.4 [facility] Comment on above: Previous reported re sult: 0.1 RATIOEdited by: JAIR on 04/24/25:1737 AMENDED REPORT 04/24/251736 A/G previously reported as: 0.1 L RATIO Serum or plasma alkaline deya sphatase measurementOrdered By: Mary Cobb on 04-24-2025 ALP [Catalytic activity/Vol] 64 U/L 35-104 [facility] Serum or plasma calcium yuliya urement (mass/volume)Ordered By: Mary Cobb on 04-24-2025 Calcium [Mass/Vol] 9.6 mg/dL 7.6-11.0 [facility] Serum or plasma urea nitroge n measurement (mass/volume)Ordered By: Mary Cobb on 04-24-2025 Urea nitrogen [Mass/Vol] 13 mg/dL 4-19 [facility] Sodium levelOrdered By: Jose Elias Cobb on 04-24-2025 Sodium [Moles/Vol] 135 mmol/L 133-145 [facility] Total proteinOrdered By: Zoya Cobb on 04-24-2025 Protein [Mass/Vol] 5.7 g/dL Low 5.9-8.4 [facility] White blood cell (WBC) count Ordered By: Mary Cobb on 04-24-2025 WBC (Bld) [#/Vol] 8.0 10*3/uL Normal 4.4-11.0 [facility] Comment on above: Performed By: #### L 100.0100, L500.2500, L501.4021 #### [facility] [address] [place], [address] 12 Lead EKGon 04-06-2025 12 Lead EKG [facility] Cardiovascular Services [address] [place] [address] 12 Lead EKG 04/06/25 1404 MR#: [id number] Acct: [id number] Name: VICKIE BARLOW Rep #: [id number] : 1965 59 From: Winston Amos MD [...] Abnormal ECG Confirmed by Winston Amos ([id number]), news assignment editor EMILIANO GREEN ([id number]) on 04/07/2025 9:10:08 AM Referred By: Confirmed By: Winston Amos 04/07/25 0910 Date Winston Amos MD CC: LYNDSEY Cobb; Dr. Shawn Soni MD Signed Normal [facility] Absolute lymphocyte countOrd ered By: ED PROVIDER on 04-06-2025 Lymphocytes Auto (Unsp spec) [#/Vol] 0.74 10*3/uL Low 0.83-4.51 [facility] Absolute neutrophil countOrd ered By: ED PROVIDER on 04-06-2025 Neutrophils (Bld) [#/Vol] 4.9 10*3/uL 2.0-7.7 [facility] Anion gap in Serum or Plasma Ordered By: ED PROVIDER on 04-06-2025 Anion gap [Moles/Vol] 13 mmol/L - [facility] Automated lymphocyte count a s percentage of total leukocytesOrdered By: ED PROVIDER on 04-06-2025 Lymphocytes/100 WBC Auto (Unsp spec) 10.9 % Low [facility] BUN/creatinine ratioOrdered By: ED PROVIDER on 04-06-2025 Urea nitrogen/Creatinine [Mass ratio] 20.0 mg/mg - [facility] Basic Metabolic Profile (BMP )on 04-06-2025 BUN/CRE 20.0 RATIO Normal 09-14 [facility] Comment on above: Performed By: #### L 100.0100, L500.2500, L501.4021 #### [facility] [address] [place], [address] Calcium [Mass/Vol] 9.2 mg/dL Normal 7.6-11.0 [facility] Comment on above: Performed By: #### L 100.0100, L500.2500, L501.4021 #### [facility] [address] [place], [address] Chloride [Moles/Vol] 104 mmol/L Normal 98-108 [facility] Comment on above: Performed By: #### L 100.0100, L500.2500, L501.4021 #### [facility] [address] [place], [address] CO2 [Moles/Vol] 21.6 mmol/L Normal 21.0-32.0 [facility] Comment on above: Performed By: #### L 100.0100, L500.2500, L501.4021 #### [facility] [address] [place], [address] Creatinine [Mass/Vol] 0.74 mg/dL Normal 0.70-1.20 [facility] Comment on above: Performed By: #### L 100.0100, L500.2500, L501.4021 #### [facility] [address] [place], [address] ECRCL 101.59 ml/min Normal 50-250 [facility] Comment on above: Performed By: #### L 100.0100, L500.2500, L501.4021 #### [facility] [address] [place], [address] GAP 13 Normal 5-15 [facility] Comment on above: Performed By: #### L 100.0100, L500.2500, L501.4021 #### [facility] [address] [place], [address] GFR/1.73 sq M.predicted among non-blacks MDRD (S/P/Bld) [Vol rate/Area] 93 mL/min/{1.73_m2} Normal >60 [facility] Comment on above: Result Comment: mL/m in/1.73m2 CKD-EPI Creatinine Equation (2020) Performed By: #### L 100.0100, L500.2500, L501.4021 #### [facility] [address] [place], [address] Glucose [Mass/Vol] 99 mg/dL Normal 70-99 [facility] Comment on above: Performed By: #### L 100.0100, L500.2500, L501.4021 #### [facility] [address] [place], [address] Potassium [Moles/Vol] 4.6 mmol/L Normal 3.3-5.1 [facility] Comment on above: Result Comment: Hemo lysis present, Results??could be affected. ?? Performed By: #### L 100.0100, L500.2500, L501.4021 #### [facility] [address] [place], [address] Sodium [Moles/Vol] 138 mmol/L Normal 133-145 [facility] Comment on above: Performed By: #### L 100.0100, L500.2500, L501.4021 #### [facility] [address] [place], [address] Urea nitrogen [Mass/Vol] 15 mg/dL Normal 4-19 [facility] Comment on above: Performed By: #### L 100.0100, L500.2500, L501.4021 #### [facility] [address] [place], [address] Basophil percentageOrdered B y: ED PROVIDER on 04-06-2025 Basophils/100 WBC (Bld) 1.0 % 0-1 [facility] CBC W/Diff, Automatedon 03-26 Absolute Lymph 0.74 X10 3/uL Low 0.83-4.51 [facility] Comment on above: Performed By: #### L 100.0100, L500.2500, L501.4021 #### [facility] [address] [place], [address] Absolute Neut 4.9 X10 3/uL Normal 2.0-7.7 [facility] Comment on above: Performed By: #### L 100.0100, L500.2500, L501.4021 #### [facility] [address] [place], [address] Basophils/100 WBC (Bld) 1.0 % Normal 0-1 [facility] Comment on above: Performed By: #### L 100.0100, L500.2500, L501.4021 #### [facility] [address] [place], [address] Eosinophils/100 WBC (Bld) 6.1 % High 0-5 [facility] Comment on above: Performed By: #### L 100.0100, L500.2500, L501.4021 #### [facility] [address] [place], [address] Erythrocyte distribution width (RBC) [Ratio] 13.8 % Normal 11.6-14.6 [facility] Comment on above: Performed By: #### L 100.0100, L500.2500, L501.4021 #### [facility] [address] [place], [address] Hematocrit (Bld) [Volume fraction] 40.6 % Normal 37-47 [facility] Comment on above: Performed By: #### L 100.0100, L500.2500, L501.4021 #### [facility] [address] [place], [address] Hemoglobin (Bld) [Mass/Vol] 13.3 g/dL Normal 12.0-15.0 [facility] Comment on above: Performed By: #### L 100.0100, L500.2500, L501.4021 #### [facility] [address] [place], [address] IG% 0.100 Normal 0.0-0.9 [facility] Comment on above: Result Comment: IG% - Immature Granulocytes (promyelocytes, myelocytes and metamyelocytes) > 1% indicates that a LEFT SHIFT is Present. Performed By: #### L 100.0100, L500.2500, L501.4021 #### [facility] [address] [place], [address] Lymphocytes/100 WBC (Bld) 10.9 % Low 19-41 [facility] Comment on above: Performed By: #### L 100.0100, L500.2500, L501.4021 #### [facility] [address] [place], [address] MCH (RBC) [Entitic mass] 31.1 pg Normal 27.0-32.0 [facility] Comment on above: Performed By: #### L 100.0100, L500.2500, L501.4021 #### [facility] [address] [place], [address] MCHC (RBC) [Mass/Vol] 32.8 g/dL Normal 32-36 [facility] Comment on above: Performed By: #### L 100.0100, L500.2500, L501.4021 #### [facility] [address] [place], [address] MCV (RBC) [Entitic vol] 94.9 fL Normal 81-99 [facility] Comment on above: Performed By: #### L 100.0100, L500.2500, L501.4021 #### [facility] [address] [place], [address] Monocytes/100 WBC (Bld) 9.6 % Normal 0-10 [facility] Comment on above: Performed By: #### L 100.0100, L500.2500, L501.4021 #### [facility] [address] [place], [address] Neutrophils/100 WBC (Bld) 72.3 % High 47-70 [facility] Comment on above: Performed By: #### L 100.0100, L500.2500, L501.4021 #### [facility] [address] [place], [address] Nucleated RBC (Bld) [#/Vol] 0 10*3/uL Normal 0-5 [facility] Comment on above: Performed By: #### L 100.0100, L500.2500, L501.4021 #### [facility] [address] [place], [address] Platelet mean volume (Bld) [Entitic vol] 10.1 fL Normal 6.2-12.0 [facility] Comment on above: Performed By: #### L 100.0100, L500.2500, L501.4021 #### [facility] [address] [place], [address] Platelets (Bld) [#/Vol] 247 10*3/uL Normal 150-450 [facility] Comment on above: Performed By: #### L 100.0100, L500.2500, L501.4021 #### [facility] [address] [place], [address] RBC (Bld) [#/Vol] 4.28 10*6/uL Normal 4.2-5.4 [facility] Comment on above: Performed By: #### L 100.0100, L500.2500, L501.4021 #### [facility] [address] [place], [address] RDW SD 48.0 fl High 35.1-43.9 [facility] Comment on above: Performed By: #### L 100.0100, L500.2500, L501.4021 #### [facility] [address] [place], [address] WBC (Bld) [#/Vol] 6.8 10*3/uL Normal 4.4-11.0 [facility] Comment on above: Performed By: #### L 100.0100, L500.2500, L501.4021 #### [facility] [address] [place], [address] CTA Chest W/WO Contraston CTA Chest W/WO Contrast [facility] Imaging Services [address] [place] [address] CTA Chest W/WO Contrast MR#: [id number] Acct: [id number] Name: VICKIE ABRLOW Rep #: [id number] : 1965 F 59 From: Rubio Bartlett MD PCP: Mary Cobb, BRUSH MATERIAL PREPARER-C Status: [facility] ER Study: CTA Chest W/WO Contrast Date of Exam: 04/06/25 Exam# [id number] Ordering Dr: Shawn Soni MD EXAM: CT [...] evaluated due to suboptimal opacification. Reading Location: [facility] CC: BR[employer] MATERIAL PREPARER-C Mary Cobb; Dr. Shawn Soni MD Marine Safety Officer: Signed Normal [facility] Carbon dioxide, total [Moles /volume] in Central venous bloodOrdered By: ED PROVIDER on 04-06-2025 CO2 [Moles/Vol] 21.6 mmol/L 21.0-32.0 [facility] Chest PA and Lateralon 04-06 Chest PA and Lateral [facility] Imaging Services [address] [place] [id number] Chest PA and Lateral MR#: [id number] Acct: [id number] Name: VICKIE BARLOW Rep #: [id number] : 1965 F 59 From: Chan Gipson MD PCP: Mary Cobb, BRUSH MATERIAL PREPARERRoseannaC Status: PRE ER Study: Chest PA and Lateral Date of Exam: 04/06/25 Exam# [id number] Ordering Dr: Kalia,Ed P. PROCEDURE: CHEST PA [...] in the chest. Reading Location: [facility] CC: BR[employer] PREPARER-C Mary Cobb; ED PHYSICIAN PROVIDER Marine Safety Officer: Signed Normal [facility] Chloride assayOrdered By: ED PROVIDER on 04-06-2025 Chloride [Moles/Vol] 104 mmol/L 98-108 [facility] D-Dimer Quantitative (DVT/PE )on 04-06-2025 D-DIMER QUANT 1.66 FEU/ug/m Invalid Interpretation Code 0.27-0.49 [facility] Comment on above: Order Comment: CRITI NELIDA VALUE CALLED TO LZLBYG57/12/25 1418 Aida Guy.RESULTS READ BACK BY SAME. Result Comment: D-Di brayden ELEVATED (>0.49): Additional studies and clinical assessments are indicated to conclude diagnosis of: Deep Vein Thrombosis (DVT) or Pulmonary Embolism (PE) Performed By: #### L 3410.9999, L501.6710, L101.9900, L100.0100, L3100.5475, L500.4050 #### [facility] [address] [facility] [place], [address] Emergency Department Summary on 04-06-2025 Emergency Department Summary [facility] Medical Records Department [address] [place] [address] Emergency Department Summary 04/06/25 MR#: [id number] Acct: [id number] Name: VICKIE BARLOW Rep #: [id number] : 1965 59 From: Shawn Soni MD PCP: Mary Cobb, BR[employer] MATERIAL PREPARER-C Status:REG ER Location: ED HPI History of Present Illness Chief Complaint: Shortness of Breath Informant: patient Narrative Narrative: 59-year-old female history of mild intermittent asthma states she has been dealing with pneumonia for the past month and being cared for down in [place]. She was on antibiotics for a while [...] diagnosed with asthma since she was young. [facility] Medical History Hx of pulmonary embolus Atrial [...] in Verified 04/06/25 12:49 joints Family History (Reviewed 05/16/24 @ 11:32 by Zahra Renner BRUSH MATERIAL PREPARER, [employer]ERIAL PREPARER-C) Mother Asthma Diabetes Heart disease Hypertension CAD (coronary artery disease) COPD (chronic obstructive pulmonary disease) Rheumatoid arthritis Sister Diabetes Heart disease Father , age 44 Sudden cardiac Myocardial infarction Surgical History (Reviewed 05/16/24 @ 11:32 by Zahra Renner BRUSH MATERIAL PREPARER, [employer] MATERIAL PREPARER-C) s/p incision and drainage left shoulder blade [...] tightness, c (more content not included)... Normal [facility] Eosinophil percentageOrdered By: ED PROVIDER on 04-06-2025 Eosinophils/100 WBC (Bld) 6.1 % High 0-5 [facility] Erythrocyte distribution wid th ratioOrdered By: ED PROVIDER on 04-06-2025 Erythrocyte distribution width (RBC) [Ratio] 13.8 % 11.6-14.6 [facility] Erythrocyte distribution wid th standard deviationOrdered By: ED PROVIDER on 04-06-2025 Erythrocyte distribution width (RBC) [Ratio] 48.0 fl High 35.1-43.9 [facility] Glomerular filtration rate ( GFR) estimation/1.73 sq m using serum, plasma, or whole bOrdered By: ED PROVIDER on 04-06-2025 GFR/1.73 sq M.predicted among non-blacks MDRD (S/P/Bld) [Vol rate/Area] 93 mL/min/{1.73_m2} >60 [facility] Comment on above: mL/min/1.73m2 CKD-EP I Creatinine Equation (2020) Hematocrit Auto (Bld) [Volum e fraction]Ordered By: ED PROVIDER on 04-06-2025 Hematocrit (Bld) [Volume fraction] 40.6 % 37-47 [facility] Hemoglobin measurementOrdere d By: ED PROVIDER on 04-06-2025 Hemoglobin (Bld) [Mass/Vol] 13.3 g/dL 12.0-15.0 [facility] Immature granulocytes/100 WB C Auto (Bld)Ordered By: ED PROVIDER on 04-06-2025 Immature granulocytes/100 WBC (Bld) 0.100 % 0.0-0.9 [facility] Comment on above: IG% - Immature Granu locytes (promyelocytes, myelocytes and metamyelocytes) > 1% indicates that a LEFT SHIFT is Present. L499.0042on 04-06-2025 Trop T High Sen 23 ng/L High <=14 [facility] Comment on above: Performed By: #### L 100.0100, L500.2500, L501.4021 #### [facility] [address] [place], [place], [address] L499.0043on 04-06-2025 Trop T High Sen 29 ng/L High <=14 [facility] Comment on above: Performed By: #### L 100.0100, L500.2500, L501.4021 #### [facility] [address] [place], [address] L501.4021on 04-06-2025 Trop T High Sen 28 ng/L High <=14 [facility] Comment on above: Result Comment: Hemo lysis present, Results??could be affected. ?? Performed By: #### L 100.0100, L500.2500, L501.4021 #### [facility] [address] [place], [address] L503.7505on 04-06-2025 Natriuretic peptide B (Bld) [Mass/Vol] 2830 pg/mL High <=900 [facility] Comment on above: Result Comment: Hear t Failure Unlikely: < 300 pg/mL Heart Failure Likely < 50 Years: > 450 pg/mL 50-75 Years: > 900 pg/mL >75 Years: > 1800 pg/mL Performed By: #### L 100.0100, L500.2500, L501.4021 #### [facility] [address] [place], [address] MCV (mean corpuscular volume ) determinationOrdered By: ED PROVIDER on 04-06-2025 MCV (RBC) [Entitic vol] 94.9 fL 81-99 [facility] Mean corpuscular hemoglobin (MCH) determinationOrdered By: ED PROVIDER on 04-06-2025 MCH (RBC) [Entitic mass] 31.1 pg 27.0-32.0 [facility] Mean corpuscular hemoglobin concentration (MCHC) determinationOrdered By: ED PROVIDER on 04-06-2025 MCHC (RBC) [Mass/Vol] 32.8 g/dL 32-36 [facility] Mean platelet volume determi nationOrdered By: ED PROVIDER on 04-06-2025 Platelet mean volume (Bld) [Entitic vol] 10.1 fL 6.2-12.0 [facility] Monocyte percentageOrdered B y: ED PROVIDER on 04-06-2025 Monocytes/100 WBC (Bld) 9.6 % 0-10 [facility] Natriuretic peptide.B prohor juana N-Terminal [Mass/volume] in Serum or PlasmaOrdered By: Shawn Soni on 04-06-2025 Natriuretic peptide.B prohormone N-Terminal [Mass/Vol] 2830 pg/mL High <900 [facility] Comment on above: Heart Failure Unlike ly: < 300 pg/mLHeart Failure Likely< 50 Years: > 450 pg/mL50-75 Years: > 900 pg/mL>75 Years: > 1800 pg/mL Neutrophil percentageOrdered By: ED PROVIDER on 04-06-2025 Neutrophils/100 WBC (Bld) 72.3 % High 47-70 [facility] Nucleated red blood cell per centageOrdered By: ED PROVIDER on 04-06-2025 Nucleated RBC/100 WBC (Bld) [Ratio] 0 % 0-5 [facility] Platelet countOrdered By: ED PROVIDER on 04-06-2025 Platelets (Bld) [#/Vol] 247 10*3/uL 150-450 [facility] Potassium measurement (mass/ volume)Ordered By: ED PROVIDER on 04-06-2025 Potassium (Unsp spec) [Mass/Vol] 4.6 mmol/L 3.3-5.1 [facility] Comment on above: Hemolysis present, R esults could be affected. RBC Auto (Bld) [#/Vol]Ordere d By: ED PROVIDER on 04-06-2025 RBC (Bld) [#/Vol] 4.28 10*6/uL 4.2-5.4 [facility] Serum creatinine measurement (mass/volume)Ordered By: ED PROVIDER on 04-06-2025 Creatinine [Mass/Vol] 0.74 mg/dL 0.70-1.20 [facility] Serum glucose measurement (m ass/volume)Ordered By: ED PROVIDER on 04-06-2025 Glucose [Mass/Vol] 99 mg/dL 70-99 [facility] Serum or plasma calcium yuliya urement (mass/volume)Ordered By: ED PROVIDER on 04-06-2025 Calcium [Mass/Vol] 9.2 mg/dL 7.6-11.0 [facility] Serum or plasma urea nitroge n measurement (mass/volume)Ordered By: ED PROVIDER on 04-06-2025 Urea nitrogen [Mass/Vol] 15 mg/dL 4-19 [facility] Sodium levelOrdered By: ED Melissa LINCOLN on 04-06-2025 Sodium [Moles/Vol] 138 mmol/L 133-145 [facility] Troponin T.cardiac [Mass/vol ume] in Serum or Plasma by High sensitivity methodOrdered By: Shawn Soni on 04-06-2025 Troponin T.cardiac High sensitivity method [Mass/Vol] 29 ng/L High <14 [facility] Troponin T.cardiac High sensitivity method [Mass/Vol] 23 ng/L High <14 [facility] Troponin T.cardiac [Mass/vol ume] in Serum or Plasma by High sensitivity methodOrdered By: ED PROVIDER on 04-06-2025 Troponin T.cardiac High sensitivity method [Mass/Vol] 28 ng/L High <14 [facility] Comment on above: Hemolysis present, R esults could be affected. White blood cell (WBC) count Ordered By: ED PROVIDER on 04-06-2025 WBC (Bld) [#/Vol] 6.8 10*3/uL 4.4-11.0 [facility] L3410.9999on 12-15-2024 [facility] Misc. COMMENT Normal . [facility] Comment on above: Order Comment: [id number] APCR Result Comment: Test Ordered: [id number] APCR w/FV+A2APla+Fibrin+FII... Lipoprotein (a) 73 [H ] mg/dL UY Reference Range: . Verified by repeat analysis. The mean and median Lp(a) concentration of the -[place] population is approximately twice that of the population, although studies have shown that elevated Lp(a) concentration is not an independent risk factor for developing atherosclerotic disease in the -[place] population. Reference Range: <31 Homocysteine 8.5 umol/L [...] developed and its performance characteristics determined by [employer]. It has not been cleared or approved [...] Reference Range: . G-G (Normal-Normal) No prothrombin [id number] mutation present. Interpretation: Comment [facility]Y Reference Range: . While the patient does not possess this risk factor, other thrombotic risk factors may be detected through systematic clinical laboratory analysis. Methodology: Comment UY Reference Range: . Patient DNA was evaluated [place] 53359 using PCR amplification followed by restriction analysis and gel electrophoresis. Comments: Comment UY Reference Range: . Simultaneous Risks: If a patient possesses two or more congenital or acquired thrombophilic risk factors, the risk of thrombosis may rise to more than the sum of the risk ratios for the individual risk factors. For instance, a combination of the prothrombin [id number] mutation and the factor V Leiden mutation [...] personnel. This assay detects only the prothrombin H19835L mutation and does not detect other genetic abnormalities. This test was developed and its performance characteristics determined by [employer]. It has not been cleared or approved [...] test results. Reference Range: <326 Performed at: [employer] [address] [id number] Digital Forensic Examiner: Nain Chavarria MD, Phone: [phone] Performed at: [address] [id number] Digital Forensic Examiner: Randy Nova PhD, Phone: [phone] Performed By: #### L 3410.9999, L501.6710, L101.9900, L100.0100, L3100.5475, L500.4050 #### [facility] [address] [place] [address]. [place], [address] ANTINUCLEAR ANTIBODIES DIREC Ton 12-03-2024 WILFRED,DIRECT Negative Normal Negative [facility] Comment on above: Result Comment: Perf ormed at: [address] [id number] Digital Forensic Examiner: Randy Nova PhD, Phone: [phone] Performed By: #### L 3410.9999, L501.6710, L101.9900, L100.0100, L3100.5475, L500.4050 #### [facility] [address] [place], [address] CBC W/Diff, Automatedon 01-0 6-2024 Absolute Lymph 0.69 X10 3/uL Low 0.83-4.51 [facility] Comment on above: Performed By: #### L 3410.9999, L501.6710, L101.9900, L100.0100, L3100.5475, L500.4050 #### [facility] [address] [place], [address] Absolute Neut 5.7 X10 3/uL Normal 2.0-7.7 [facility] Comment on above: Performed By: #### L 3410.9999, L501.6710, L101.9900, L100.0100, L3100.5475, L500.4050 #### [facility] [address] [place], [address] Basophils/100 WBC (Bld) 1.0 % Normal 0-1 [facility] Comment on above: Performed By: #### L 3410.9999, L501.6710, L101.9900, L100.0100, L3100.5475, L500.4050 #### [facility] [address] [place], [address] Eosinophils/100 WBC (Bld) 4.6 % Normal 0-5 [facility] Comment on above: Performed By: #### L 3410.9999, L501.6710, L101.9900, L100.0100, L3100.5475, L500.4050 #### [facility] [address] [place], [address] Erythrocyte distribution width (RBC) [Ratio] 12.2 % Normal 11.6-14.6 [facility] Comment on above: Performed By: #### L 3410.9999, L501.6710, L101.9900, L100.0100, L3100.5475, L500.4050 #### [facility] [address] [place], [address] Hematocrit (Bld) [Volume fraction] 44.6 % Normal 37-47 [facility] Comment on above: Performed By: #### L 3410.9999, L501.6710, L101.9900, L100.0100, L3100.5475, L500.4050 #### [facility] [address] [place], [address] Hemoglobin (Bld) [Mass/Vol] 14.9 g/dL Normal 12.0-15.0 [facility] Comment on above: Performed By: #### L 3410.9999, L501.6710, L101.9900, L100.0100, L3100.5475, L500.4050 #### [facility] [address] [facility] [place], [address] IG% 0.100 Normal 0.0-0.9 [facility] Comment on above: Result Comment: IG% - Immature Granulocytes (promyelocytes, myelocytes and metamyelocytes) > 1% indicates that a LEFT SHIFT is Present. Performed By: #### L 3410.9999, L501.6710, L101.9900, L100.0100, L3100.5475, L500.4050 #### [facility] [address] [place], [address] Lymphocytes/100 WBC (Bld) 9.6 % Low 19-41 [facility] Comment on above: Performed By: #### L 3410.9999, L501.6710, L101.9900, L100.0100, L3100.5475, L500.4050 #### [facility] [address] [place], [address] MCH (RBC) [Entitic mass] 31.2 pg Normal 27.0-32.0 [facility] Comment on above: Performed By: #### L 3410.9999, L501.6710, L101.9900, L100.0100, L3100.5475, L500.4050 #### [facility] [address] [place], [address] MCHC (RBC) [Mass/Vol] 33.4 g/dL Normal 32-36 [facility] Comment on above: Performed By: #### L 3410.9999, L501.6710, L101.9900, L100.0100, L3100.5475, L500.4050 #### [facility] [address] [place], [address] MCV (RBC) [Entitic vol] 93.5 fL Normal 81-99 [facility] Comment on above: Performed By: #### L 3410.9999, L501.6710, L101.9900, L100.0100, L3100.5475, L500.4050 #### [facility] [address] [place], [address] Monocytes/100 WBC (Bld) 6.1 % Normal 0-10 [facility] Comment on above: Performed By: #### L 3410.9999, L501.6710, L101.9900, L100.0100, L3100.5475, L500.4050 #### [facility] [address] [place], [address] Neutrophils/100 WBC (Bld) 78.6 % High 47-70 [facility] Comment on above: Performed By: #### L 3410.9999, L501.6710, L101.9900, L100.0100, L3100.5475, L500.4050 #### [facility] [address] [place], [address] Nucleated RBC (Bld) [#/Vol] 0 10*3/uL Normal 0-5 [facility] Comment on above: Performed By: #### L 3410.9999, L501.6710, L101.9900, L100.0100, L3100.5475, L500.4050 #### [facility] [address] [place], [address] Platelet mean volume (Bld) [Entitic vol] 11.1 fL Normal 6.2-12.0 [facility] Comment on above: Performed By: #### L 3410.9999, L501.6710, L101.9900, L100.0100, L3100.5475, L500.4050 #### [facility] [address] [place], [address] Platelets (Bld) [#/Vol] 290 10*3/uL Normal 150-450 [facility] Comment on above: Performed By: #### L 3410.9999, L501.6710, L101.9900, L100.0100, L3100.5475, L500.4050 #### [facility] [address] [place], [address] RBC (Bld) [#/Vol] 4.77 10*6/uL Normal 4.2-5.4 [facility] Comment on above: Performed By: #### L 3410.9999, L501.6710, L101.9900, L100.0100, L3100.5475, L500.4050 #### [facility] [address] [place], [address] RDW SD 42.3 fl Normal 35.1-43.9 [facility] Comment on above: Performed By: #### L 3410.9999, L501.6710, L101.9900, L100.0100, L3100.5475, L500.4050 #### [facility] [address] [place], [address] WBC (Bld) [#/Vol] 7.2 10*3/uL Normal 4.4-11.0 [facility] Comment on above: Performed By: #### L 3410.9999, L501.6710, L101.9900, L100.0100, L3100.5475, L500.4050 #### [facility] [address] [place], [address] CRPon 12-01-2024 C-REACTIVE PROT 15.30 mg/L High 0.0-3.0 [facility] Comment on above: Result Comment: C-Re active Protein (CRP) provides useful information for the diagnosis, therapy and monitoring of inflammatory processes and associated diseases. For the evaluation of Relative Risk for Cardiovascular Disease, a High Sensitivity CRP (HSCRP) should be ordered. Performed By: #### L 3410.9999, L501.6710, L101.9900, L100.0100, L3100.5475, L500.4050 #### [facility] [address] [place], [address] Comprehensive Metabolic Prof ilon 12-01-2024 Albumin [Mass/Vol] 3.7 g/dL Normal 3.2-5.0 [facility] Comment on above: Performed By: #### L 3410.9999, L501.6710, L101.9900, L100.0100, L3100.5475, L500.4050 #### [facility] [address] [place], [address] Albumin/Globulin [Mass ratio] 0.9 {ratio} Normal 0.9-2.4 [facility] Comment on above: Performed By: #### L 3410.9999, L501.6710, L101.9900, L100.0100, L3100.5475, L500.4050 #### [facility] [address] [place], [address] ALK P 74 U/L Normal 45-117 [facility] Comment on above: Performed By: #### L 3410.9999, L501.6710, L101.9900, L100.0100, L3100.5475, L500.4050 #### [facility] [address] [place], [address] ALT [Catalytic activity/Vol] 28 U/L Normal 13-56 [facility] Comment on above: Performed By: #### L 3410.9999, L501.6710, L101.9900, L100.0100, L3100.5475, L500.4050 #### [facility] [address] [place], [address] AST [Catalytic activity/Vol] 21 U/L Normal 15-37 [facility] Comment on above: Performed By: #### L 3410.9999, L501.6710, L101.9900, L100.0100, L3100.5475, L500.4050 #### [facility] [address] [place], [address] Bilirubin [Mass/Vol] 0.40 mg/dL Normal 0.20-1.00 [facility] Comment on above: Result Comment: For patients on eltrombopag therapy, use of Dimension [place] TBIL is not recommended. Performed By: #### L 3410.9999, L501.6710, L101.9900, L100.0100, L3100.5475, L500.4050 #### [facility] [address] [place], [address] BUN/CRE 21.2 RATIO High 10-20 [facility] Comment on above: Performed By: #### L 3410.9999, L501.6710, L101.9900, L100.0100, L3100.5475, L500.4050 #### [facility] [address] [place], [address] CA,Total 9.5 mg/dL Normal 8.5-10.1 [facility] Comment on above: Performed By: #### L 3410.9999, L501.6710, L101.9900, L100.0100, L3100.5475, L500.4050 #### [facility] [address] [place], [address] Chloride [Moles/Vol] 104 mmol/L Normal 98-107 [facility] Comment on above: Performed By: #### L 3410.9999, L501.6710, L101.9900, L100.0100, L3100.5475, L500.4050 #### [facility] [address] [place], [address] CO2 [Moles/Vol] 27.0 mmol/L Normal 21.0-32.0 [facility] Comment on above: Performed By: #### L 3410.9999, L501.6710, L101.9900, L100.0100, L3100.5475, L500.4050 #### [facility] [address] [place], [address] Creatinine [Mass/Vol] 0.75 mg/dL Normal 0.55-1.02 [facility] Comment on above: Result Comment: The validity of the calculated GFR GFRAA in patients over 70 years has not been determined. Clinical correlation is essential. Performed By: #### L 3410.9999, L501.6710, L101.9900, L100.0100, L3100.5475, L500.4050 #### [facility] [address] [place], [address] EST GFR - AA 101 mL/min Normal >60 [facility] Comment on above: Result Comment: Afri can Faroese GFR Calc Performed By: #### L 3410.9999, L501.6710, L101.9900, L100.0100, L3100.5475, L500.4050 #### [facility] [address] [place], [address] GAP 5 Normal 5-15 [facility] Comment on above: Performed By: #### L 3410.9999, L501.6710, L101.9900, L100.0100, L3100.5475, L500.4050 #### [facility] [address] [place], [address] GFR/1.73 sq M.predicted among non-blacks MDRD (S/P/Bld) [Vol rate/Area] 83 mL/min/{1.73_m2} Normal >60 [facility] Comment on above: Result Comment: Non- GFR Calc Performed By: #### L 3410.9999, L501.6710, L101.9900, L100.0100, L3100.5475, L500.4050 #### [facility] [address] [place], [address] Globulin (S) [Mass/Vol] 3.9 g/dL Normal 2.2-4.2 [facility] Comment on above: Performed By: #### L 3410.9999, L501.6710, L101.9900, L100.0100, L3100.5475, L500.4050 #### [facility] [address] [place], [address] Glucose [Mass/Vol] 97 mg/dL Normal 74-106 [facility] Comment on above: Performed By: #### L 3410.9999, L501.6710, L101.9900, L100.0100, L3100.5475, L500.4050 #### [facility] [address] [place], [address] Potassium [Moles/Vol] 4.3 mmol/L Normal 3.5-5.1 [facility] Comment on above: Performed By: #### L 3410.9999, L501.6710, L101.9900, L100.0100, L3100.5475, L500.4050 #### [facility] [address] [place], [address] Sodium [Moles/Vol] 136 mmol/L Normal 136-145 [facility] Comment on above: Performed By: #### L 3410.9999, L501.6710, L101.9900, L100.0100, L3100.5475, L500.4050 #### [facility] [address] [place], [address] T PROT 7.6 g/dL Normal 6.4-8.2 [facility] Comment on above: Performed By: #### L 3410.9999, L501.6710, L101.9900, L100.0100, L3100.5475, L500.4050 #### [facility] [address] [place], [place], [address] Urea nitrogen [Mass/Vol] 16 mg/dL Normal 7-18 [facility] Comment on above: Performed By: #### L 3410.9999, L501.6710, L101.9900, L100.0100, L3100.5475, L500.4050 #### [facility] [address] [place], [address] Erythrocyte Sed Rateon 12-01 SED RATE 30 mm/hr Normal 0-30 [facility] Comment on above: Performed By: #### L 3410.9999, L501.6710, L101.9900, L100.0100, L3100.5475, L500.4050 #### [facility] [address] [place], [address] Fact V Leiden Mutationon FACTOR V LEIDEN Normal [facility] Comment on above: Result Comment: DIFF ERENT REQ Performed By: #### L 100.0100, L500.2500, L501.4021 #### [facility] [address] [place], [address] Factor II, DNA Analysison FACTOR II, DNA Normal [facility] Comment on above: Result Comment: DIFF ERENT REQ Performed By: #### L 100.0100, L500.2500, L501.4021 #### [facility] [address] [place], [address] Protein S, Functionalon PROTEIN S, FUNC Normal 60-145 [facility] Comment on above: Result Comment: DIFF ERENT REQ Performed By: #### L 100.0100, L500.2500, L501.4021 #### [facility] [address] [place], [address] 12 Lead [place] [facility] [place]-05-[place]24 12 Lead [facility]KG performed by [facility] [address] [place] [address] 12 Lead EKG [place] [facility] [place] 11/05/24 1454 MR#: [id number] Acct: [id number] Name: VICKIE BARLOW Rep #: [id number] : 1965 59 From: Dick Ruiz NP [employer]C Attending Dr: Dikc Ruiz [employer] Status: DEP AMB Ordering Dr: Dick Ruiz NP [employer] Date: 11/05/24 Location: [facility] [place] Sex: F C [place] [facility] [place] [place]12 Lead [place] [facility] ECG Report Interpretation -----Atrial fibrillation -RSR(V1) -nondiagnostic. Low voltage -possible pulmonary disease. ABNORMAL Electronically signed on 11/11/2024 at 08:34 by Stalin [employer] Version [id number] 11/11/24 0839 Date Dick H Roof [employer]ER [employer] CC: LYNDSEY Cobb Date Dictated: 11/05/241453 Date Transcribed: 11/05/241453 Marine Safety Officer: JANAE Signed Normal [facility] Cardiology Visit Reporton Cardiology Visit Report [facility] [address] [place] [address] OFFICE VISIT Date of Service: 11/05/24 MR#: [id number] Acct: [id number] Name: VICKIE BARLOW Rep #: [id number] : 1965 Provider: LYNDSEY danielson Age/Sex: 59/F [place] [facility] [place] Status: Signed HPI HPI History of Present Illness Details: This is a pleasant 59-year-old lady who presents for evaluation of atrial fibrillation. She said that while she was in [place] in November of this year she got [...] 97 Intake Visit Reasons: 6 M FU Guide Rail Cleaner Required: No Is patient in pain?: No [...] balance problems (more content not included)... Normal [facility] Wrist min 3 Viewson 10-31-20 Wrist min 3 Views [facility] [address] [place], [place] [id number] Wrist min 3 Views MR#: [id number] Acct: [id number] Name: VICKIE BARLOW Rep #: [id number] : 1965 F 59 From: Mai Jenkins PCP: LYNDSEY Wood Status: REG CL Study: Wrist min 3 Views Date of Exam: 10/31/24 Exam# [id number] Ordering Dr: Mary Cobb NP [employer] [id number] INDICATION: PAIN LEFT WRIST PAIN NO KNOWN [...] at 8:12 EST , CC: LYNDSEY Cobb Marine Safety Officer: Signed Normal [facility] Absolute lymphocyte countOrd ered By: Mary Cobb on 10-15-2023 Lymphocytes Auto (Unsp spec) [#/Vol] 0.77 10*3/uL 0.83-4.51 [facility] Basophil percentageOrdered B y: Mary Cobb on 10-15-2023 Basophils/100 WBC (Bld) 0.7 % 0-1 [facility] Bilirubin [Mass/Vol] 0.40 mg/dL 0.20-1.00 [facility] Comment on above: For patients on eltr ombopag therapy, use of Dimension [place] TBIL is not recommended. Chloride [Moles/Vol] 104 mmol/L 98-107 [facility] Eosinophils/100 WBC (Bld) 4.2 % 0-5 [facility] Glucose [Mass/Vol] 89 mg/dL 74-106 [facility] Neutrophils (Bld) [#/Vol] 5.4 10*3/uL 2.0-7.7 [facility] Neutrophils/100 WBC (Bld) 74.5 % 47-70 [facility] Potassium [Moles/Vol] 4.3 mmol/L 3.5-5.1 [facility] Protein [Mass/Vol] 7.4 g/dL 6.4-8.2 [facility] Sodium [Moles/Vol] 137 mmol/L 136-145 [facility] Testosterone [Mass/Vol] 28.41 ng/dL [facility] Comment on above: CENTRAL 90% REFERENC E RANGES MALE AGE <50 197.44 - 669.58 ng/dL MALE AGE > or = 50 187.72 - 684.19 ng/dL FEMALE AGE <50 8.38 - 35.01 ng/dL FEMALE AGE > or = 50 <7.00 - 35.92 ng/dL Effective as of 06/21/21 WBC (Bld) [#/Vol] 7.2 10*3/uL 4.4-11.0 [facility] Blood erythrocytes count (nu mber/volume)Ordered By: Mary Cobb on 10-15-2023 RBC (Bld) [#/Vol] 4.71 10*6/uL 4.2-5.4 [facility] Blood hemoglobin measurement (mass/volume)Ordered By: Mary Cobb on 10-15-2023 Hemoglobin (Bld) [Mass/Vol] 14.3 g/dL 12.0-15.0 [facility] Blood lymphocytes/100 leukoc ytesOrdered By: Mary Cobb on 10-15-2023 Lymphocytes/100 WBC (Bld) 10.7 % 19-41 [facility] Blood monocytes/100 leukocyt esOrdered By: Mary Cobb on 10-15-2023 Monocytes/100 WBC (Bld) 9.8 % 0-10 [facility] Blood platelet mean volumeOr dered By: Mary Cobb on 10-15-2023 Platelet mean volume (Bld) [Entitic vol] 10.6 fL 6.2-12.0 [facility] Determination of erythrocyte mean corpuscular volume (MCV)Ordered By: Mary Cobb on 10-15-2023 MCV (RBC) [Entitic vol] 94.7 fL 81-99 [facility] Hematocrit Auto (Bld) [Volum e fraction]Ordered By: Mary Cobb on 10-15-2023 Hematocrit (Bld) [Volume fraction] 44.6 % 37-47 [facility] - Chemistry and C hemistry - challengeOrdered By: Mary Cobb on 10-15-2023 ALP [Catalytic activity/Vol] 64 U/L 45-117 [facility] ALT [Catalytic activity/Vol] 26 U/L 13-56 [facility] CO2 [Moles/Vol] 31.0 mmol/L 21.0-32.0 [facility] Globulin (S) [Mass/Vol] 3.8 g/dL 2.2-4.2 [facility] Urea nitrogen/Creatinine [Mass ratio] 23.6 mg/mg 10-20 [facility] - Hematology and Cell countsOrdered By: Mary Cobb on 10-15-2023 Erythrocyte distribution width (RBC) [Entitic vol] 43.8 fL 35.1-43.9 [facility] Erythrocyte distribution width (RBC) [Ratio] 12.6 % 11.6-14.6 [facility] Immature granulocytes/100 WBC (Bld) 0.100 % 0.0-0.9 [facility] Comment on above: IG% - Immature Granu locytes (promyelocytes, myelocytes and metamyelocytes) > 1% indicates that a LEFT SHIFT is Present. MCH (RBC) [Entitic mass] 30.4 pg 27.0-32.0 [facility] Nucleated RBC/100 WBC (Bld) [Ratio] 0 % 0-5 [facility] MCHC Auto (RBC) [Mass/Vol]Or dered By: Mary Cobb on 10-15-2023 MCHC (RBC) [Mass/Vol] 32.1 g/dL 32-36 [facility] No Panel InformationOrdered By: Mary Cobb on 10-15-2023 Estimated GFR (MDRD) Amer 100 mL/min >60 [facility] Comment on above: GFR Calc Estimated GFR (MDRD) Non-Af Amer 82 mL/min >60 [facility] Comment on above: Non- GFR Calc Platelets bldOrdered By: Zoya Cobb on 10-15-2023 Platelets (Bld) [#/Vol] 290 10*3/uL 150-450 [facility] Serum or plasma C reactive p rotein measurement (mass/volume)Ordered By: Mary Cobb on 10-15-2023 CRP [Mass/Vol] 14.80 mg/L 0.0-3.0 [facility] Comment on above: C-Reactive Protein ( CRP) provides useful information for thediagnosis, therapy and monitoring of inflammatory processesand associated diseases. For the evaluation of Relative Riskfor Cardiovascular Disease, a High Sensitivity CRP (HSCRP)should be ordered. Serum or plasma albumin yuliya urement (mass/volume)Ordered By: Mary Cobb on 10-15-2023 Albumin [Mass/Vol] 3.6 g/dL 3.2-5.0 [facility] Serum or plasma albumin/glob ulin mass ratioOrdered By: Mary Cobb on 10-15-2023 Albumin/Globulin [Mass ratio] 0.9 {ratio} 0.9-2.4 [facility] Serum or plasma calcium yuliya urement (mass/volume)Ordered By: Mary Cobb on 10-15-2023 Calcium [Mass/Vol] 8.8 mg/dL 8.5-10.1 [facility] Serum or plasma creatinine m easurement (mass/volume)Ordered By: Mary Cobb on 10-15-2023 Creatinine [Mass/Vol] 0.76 mg/dL 0.55-1.02 [facility] Comment on above: The validity of the calculated GFR & GFRAA in patients over 70 years has not been determined. Clinical correlation is essential. Serum or plasma estradiol (E 2) measurement (mass/volume)Ordered By: Mary Cobb on 10-15-2023 E2 [Mass/Vol] 26.6 pg/mL [facility] Comment on above: NORMAL REFERENCE RAN GES [...] 10-15-2023 Progesterone [Mass/Vol] 0.37 ng/mL See Comment [facility] Comment on above: Progesterone Referen ce Table: [...] 10-15-2023 Urea nitrogen [Mass/Vol] 18 mg/dL 7-18 [facility] Thin prep Papanicolaou smear with manual screeningOrdered By: Mary Cobb on 10-15-2023 Thin prep Papanicolaou smear with manual screening 15 U/L 15-37 [facility] Thin prep Papanicolaou smear with manual screening 2 5-15 [facility] CNCOon 07-14-2023 [facility] HNO ID: [id number] Author: Coordinator, Mammography Service: ? Author Type: Physician Type: Letter Filed: 07/16/2023 11:37 PM Note Text: July 16, 2023 PID: [id number] Marilin Barlow [address] [place], [place] [address] Dear Ms. Barlow, We are pleased to [...] report will be kept on file at [facility] as part of your permanent medical record and are available for your continuing care. Thank you for allowing us to help in meeting your health care needs. Sincerely, Dr. Clark Interpreting Radiologist [facility] (Normal over 40) Normal [facility] SCREENING W TOMOon 07-13 KAUSHIK SCREENING W JIMMY * * *Final Report* * * DATE OF EXAM: Jul 13 2023 12:48PM WRW [id number] - [facility] SCREENING W JIMMY / PROCEDURE REASON: Encounter for screening mammogram for malignant neoplasm of breast * * * * Physician Interpretation * * * * RESULT: #[id number] - [facility] SCREENING W JIMMY BILATERAL DIGITAL SCREENING MAMMOGRAM [...] dated: 05/18/2016 mammogram and 12/24/2014 mammogram - [facility]. The tissue of both breasts is predominantly fatty. No significant masses, calcifications, or other findings are seen in either breast. There has been no significant interval change. IMPRESSION: NEGATIVE There is no mammographic evidence of malignancy. A 1 year screening mammogram is recommended. Hanna montes/selina:07/14/2023 08:12:43 Crimper Operator(s): RT Ari(Susie)(M), [facility] letter sent: Normal over 40 Mammogram BI-RADS: [...] Health, Family Medicine, and Medical/Surgical Oncology, the [facility] has carefully reviewed the data and reached [...] their providers when to stop screening mammograms. Marine Safety Officer: Selina Transcribe Date/Time: Jul 13 2023 12:38P Dictated by: HANNA CLARK MD This examination was interpreted and the report reviewed and electronically signed by: HANNA CLARK MD on Jul 14 2023 8:12AM EST [id number] Normal [facility] CNPRisa 04-02-2023 CNPN Telephone (OBGYWM) MARILIN BARLOW ([id number]) 1965 F Date Time Provider Department 04/02/23 [...] is currently undergoing treatment for CA in [place] and she needs to look at her schedule. Aicha García [facility] 04/10/2023 4:04 PM Signed Attempted to call patient. Voicemail is full. Cloud[employer] message sent with next available dates Marifer [...] patient and she is still traveling to [place] with her for his treatments and does [...] Status:Closed by LYDIA GARCÍA LPN on 05/31/23 [facility] CNOVon 03-29-2023 CNOV Office Visit (OBGYWM ) MARILIN BARLOW ([id number]) 1965 F Date Time Provider Department 03/29/23 [...] Pap done as well [facility]/29/[facility]23 11:25 AM Signed YOUR RECOVERY After [...] for human papillomavirus (HPV) [Z11.51] Order(s):ENDOMETRIAL BIOPSY [[id number]] Order #: [id number] SURGICAL PATHOLOGY [[id number]] Order #: [id number]. #:[id number] KAUSHIK SCREENING W JIMMY [[id number]] Order #: [id number] FUTURE PAP TEST [[id number]] Order #: [id number]. #:[id number] Prescriptions as of 03/29/2023 - methocarbamol (ROBAXIN) [...] mouth. Pro (more content not included)... Normal [facility] HPV W/GENOTYPE THIN PREPon 0 03-29-2023 HPV 16 Ag Ql (Unsp spec) Negative Normal Negative for HPV DNA high risk type 16 by PCR [facility] Comment on above: Order Comment: Speci men Type: FLUID SPECIMEN Ordering Facility: [facility] Address: [address] [place] [address] Performed By: #### H PVHRT #### [facility] CLIA [id number] [address] [place] [address] [place] HPV 18 Ag Ql (Unsp spec) Negative Normal Negative for HPV DNA high risk type 18 by PCR [facility] Comment on above: Order Comment: Speci men Type: FLUID SPECIMEN Ordering Facility: [facility] Address: [address] [place] [address] Performed By: #### H PVHRT #### [facility] CLIA [id number] [address] [place] [address] HPV 31+33+35+39+45+51+52+5 6+58+59+66+68 DNA DIMITRY+probe Ql (Cvx) Negative for HPV DNA high risk types: 31,33,35,39,45,51,52, 56,58,59,66,68 by PCR. Normal Negative for HPV DNA high risk types: 31,33,35,39 ,45,51,52,5 6,58,59,66, 68 by PCR. [facility] Comment on above: Order Comment: Speci men Type: FLUID SPECIMEN Ordering Facility: [facility] Address: [address] [place] [address] Performed By: #### H PVHRT #### [facility] CLIA [id number] [address] [place] [address] PAP TESTon 03-29-2023 CASE REPORT Normal [facility] Comment on above: Order Comment: Speci men Type: FLUID SPECIMEN Ordering Facility: [facility] Address: [address] [place] [address] Result Comment: Gyne cologic Cytology Report Case: [id number] Authorizing Provider: Marques Paul MD Collected: 03/29/2023 11:55 AM Ordering Location: OB/Gynecology Received: 03/29/2023 01:43 PM First Screen: ДМИТРИЙ Mello, ASCP Pathologist: Johanny Chairez MD Specimen: Pap Test, ThinPrep, Cervix Performed By: #### L [id number] #### [facility] CLIA [id number] [address] [place] [address] Order Comment: Speci men Type: TISSUE SPECIMEN Ordering Facility: [facility] Address: [address] [place] [address] Result Comment: Surg ical Pathology Report Case: [id number] Authorizing Provider: Marques Paul MD Collected: 03/29/2023 11:55 AM Ordering Location: OB/Gynecology Received: 03/29/2023 01:40 PM Pathologist: Marilee Phillips MD Specimen: ENDOMETRIUM BIOPSY Performed By: #### S #### [facility] CLIA [id number] [address] [place] [address] [place] CLINICAL HISTORY, CYTOLOGY, SIGN INSTALLER Post Menopausal Normal [facility] Comment on above: Order Comment: Speci men Type: FLUID SPECIMEN Ordering Facility: [facility] Address: [address] [place] [address] Performed By: #### L [id number] #### [facility] CLIA [id number] [address] [place] [address] STATES [facility] CYTOLOGY INTERPRETATION PAP Normal [facility] Comment on above: Order Comment: Speci men Type: FLUID SPECIMEN Ordering Facility: [facility] Address: [address] [place] [address] Result Comment: Nega tive for Intraepithelial lesion or malignancy. Performed By: #### L [id number] #### [facility] CLIA [id number] [address] [place] [address] FINAL DIAGNOSIS A - Cervix Normal [facility] Comment on above: Order Comment: Speci men Type: FLUID SPECIMEN Ordering Facility: [facility] Address: [address] [place] [address] Result Comment: Sati sfactory for interpretation. Negative for intraepithelial lesion or malignancy. Performed By: #### L [id number] #### [facility] CLIA [id number] [address] [place] [address] [place] FINAL PERFORMING LAB Normal [facility] Comment on above: Order Comment: Speci men Type: FLUID SPECIMEN Ordering Facility: [facility] Address: [address], [place] [address] Result Comment: Tech nical component, manufacturing worker screening performed at [facility], [address] [facility] [address] CLIA# [id number] Diagnostic interpretation performed at [facility], [address] [place] [id number] CLIA# [id number] Arts Administrator: Giorgi Gil M.D. Performed By: #### L [id number] #### [facility] CLIA [id number] [address] [place] Order Comment: Speci men Type: TISSUE SPECIMEN Ordering Facility: [facility] Address: [address] [place] [address] Result Comment: Diag nostic interpretation performed at [facility], [address] [id number] CLIA# [id number] Arts Administrator: Giorgi Gil M.D. Performed By: #### S #### [facility] CLIA [id number] [address] [place] [address] [place] HPV REFLEX Auto HPV Normal [facility] Comment on above: Order Comment: Speci men Type: FLUID SPECIMEN Ordering Facility: [facility] Address: [address] [address] Performed By: #### L [id number] #### [facility] CLIA [id number] [address] [place] [address] [place] LMP Post Menopausal Normal [facility] Comment on above: Order Comment: Speci men Type: FLUID SPECIMEN Ordering Facility: [facility] Address: [address] Performed By: #### L [id number] #### [facility] CLIA [id number] [address] [place] [address] [place] PAP DISCLAIMER COMMENT The Pap Smear is a screening test for cervical cancer. False negative results occur with all screening tests, emphasizing the need for rescreening at recommended intervals, and clinical correlation. Normal [facility] Comment on above: Order Comment: Speci men Type: FLUID SPECIMEN Ordering Facility: [facility] Address: [address] [place] [address] Performed By: #### L [id number] #### [facility] CLIA [id number] [address] [place] PAP EQUIPMENT ANALYST COMMENT This specimen has been analyzed by the ThinPrep Imaging System, an automated imaging and review system, which assists the laboratory in evaluating cells on ThinPrep Pap tests. Following automated imaging, selected alvarez from every slide are reviewed by a manufacturing worker. Normal [facility] Comment on above: Order Comment: Speci men Type: FLUID SPECIMEN Ordering Facility: [facility] Address: [address] [place] [address] Performed By: #### L [id number] #### [facility] CLIA [id number] [address] [place] [address] OF [facility] SURGICAL PATHOLOGYon 023 CLINICAL HISTORY SOFTWARE EDUCATOR bleeding thickened endometrial lining Normal [facility] Comment on above: Order Comment: Clarita ball Type: TISSUE SPECIMEN Ordering Facility: [facility] Address: [address] [place] [address] Performed By: #### S #### [facility] CLIA [id number] [address] [place] [address] FINAL DIAGNOSIS Normal [facility] Comment on above: Order Comment: Speci men Type: TISSUE SPECIMEN Ordering Facility: [facility] Address: [address] [place] [address] Result Comment: Endo metrium, biopsy: 1. Fragments of benign endometrial polyp. 2. Superficial fragments of inactive to weakly proliferative pattern endometrium with stromal breakdown and associated metaplastic changes. 3. Scant benign squamous and endocervical mucosa. Performed By: #### S #### [facility] CLIA [id number] [address] [place], [place] [id number] [facility] GROSS DESCRIPTION Normal [facility] Comment on above: Order Comment: Speci men Type: TISSUE SPECIMEN Ordering Facility: [facility] Address: [place] [place] [id number] Result Comment: A. E NDOMETRIUM BIOPSY Received in formalin are multiple vogel, soft feathery segments of tissue admixed with mucinous material aggregating to 1.3 x 1.2 x 0.1 cm. Totally submitted in one cassette. Gross examination performed at [facility] [place] [address] FFS 03/29/2023 11:10 PM Performed By: #### S #### [facility] CLIA [id number] [address] [place] [address] OF [facility] Astrid 01-29-2023 CNPN Telephone (OBGYWM) MARILIN BARLOW ([id number]) 1965 F Date Time Provider Department 01/29/23 [...] and mentioned that she is leaving for [place] this weekend and won't be back until mid February. Patient asking if ok to schedule endometrial biopsy when she returns? If not, please advise where she can be added to scheduled Marques Paul MD 01/29/2023 5:17 PM Signed 1 pm on or Sun or she can have w/ an BRUSH MATERIAL PREPARER or CNM. Thanks. MD Chanelle Perez RN 01/30/2023 8:55 AM Signed Patient notified. Declines an appointment this week before leaving for [place]. Has several other appointments. She is now scheduled for March 29. Won't be back from [place] until end of February, beginning of March. She will see a doctor in [place] if she has any problems. JONA Paul [...] Status:Closed by MARQUES PAUL on 01/30/23 Normal [facility] No Panel Informationon 01-25 [facility] FEMALE PELVIS TRANSABD LT Don 01-25-2023 FEMALE [...] endometrium which measures 8 mm in thickness Marine Safety Officer: [facility] Transcribe Date/Time: Jan 26 2023 1:17P Dictated by : ALLI CLARK MD This examination was interpreted and the report reviewed and electronically signed by: ALLI CLARK MD on Jan 26 2023 1:18PM EST [id number] Normal [facility] US FEMALE PELVIS TRANSVAGon 01-25-2023 US FEMALE [...] endometrium which measures 8 mm in thickness Marine Safety Officer: [facility] Transcribe Date/Time: Jan 26 2023 1:17P Dictated by : ALLI CLARK MD This examination was interpreted and the report reviewed and electronically signed by: ALLI CLARK MD on Jan 26 2023 1:18PM EST [id number] N Normal [facility] CNPRisa 01-12-2023 CNPN Telephone (OBGYWM) MARILIN BARLOW ([id number]) 1965 F Date Time Provider Department 01/12/23 [...] Diagnosis:Thickened endometrium [R93.89] Order(s):US FEMALE PELVIS TRANSVAG [[id number]] Order #: [id number] FUTURE US FEMALE PELVIS TRANSABD LTD [[id number]] Order #: [id number] FUTURE ENDOMETRIAL BIOPSY [[id number]] Order #: [id number] ENDOMETRIAL BIOPSY [[id number]] Reflex Order#: [id number] (Ord#:[id number]) Prescriptions as of 01/29/2023 - methocarbamol (ROBAXIN) [...] by AICHA MOORE LPN on 01/15/23 Normal [facility] Urinalysis, Office ([id number])Or dered By: Huber De Los Santos on [...] Medicine; [facility] Work Phone: AMYLASE ([phone])Ordered By: Isabell mckeontem Showcase Maker on 03-01-2021 Amylase [Catalytic activity/Vol] 31 U/L Normal 31-110 [facility]; [facility] Work Phone: Comment on above: PATIENT NOT FASTINGP ERFORMED BY: DEREK [facility] Dnmywl[address] [facility] [place] [id number] CBC, PLATELETS & AUT DIFF ([id number])Ordered By: Search Engine Optimization Strategist on 03-01-2021 Basophils (Bld) [#/Vol] 0.1 {x10E3/uL} Normal 0.0-0.2 [facility]; [facility] Work Phone: Comment on above: PATIENT NOT FASTINGP ERFORMED BY: CB [facility] Nlkczm022[address] RoadDublin [place] [id number] Basophils (Bld) [#/Vol] 0.1 10*3/uL Normal 0.0-0.2 [facility]; [facility] Work Phone: Comment on above: PATIENT NOT FASTINGP ERFORMED BY: DEREK [facility] Jtqpcc88[address] RoadDuin [place] [id number] Basophils/100 WBC (Bld) 1 % Normal [facility]; [facility] Work Phone: Comment on above: PATIENT NOT FASTINGP ERFORMED BY: DEREK [facility] Jhkmyj54[address] [facility] [place] [place] [id number] Eosinophils (Bld) [#/Vol] 0.3 {x10E3/uL} Normal 0.0-0.4 [facility]; [facility] Work Phone: Comment on above: PATIENT NOT FASTINGP ERFORMED BY: CB [facility] Hykfpg5[address] RoadDublin [place] [id number] Eosinophils (Bld) [#/Vol] 0.3 10*3/uL Normal 0.0-0.4 [facility]; [facility] Work Phone: Comment on above: PATIENT NOT FASTINGP ERFORMED BY: CB [facility] Uzzuht25[address] RoadDublin [place] [id number] Eosinophils/100 WBC (Bld) 4 % Normal [facility]; [facility] Work Phone: Comment on above: PATIENT NOT FASTINGP ERFORMED BY: CB [facility] Wbsfzk9[address] [facility]Select [facility] [place] [id number] Erythrocyte distribution width (RBC) [Ratio] 13.3 % Normal 11.7-15.4 [facility]; [facility] Work Phone: Comment on above: PATIENT NOT FASTINGP ERFORMED BY: DEREK Sosa6370 [facility] [id number] Hematocrit (Bld) [Volume fraction] 43.5 % Normal 34.0-46.6 [facility]; [facility] Work Phone: Comment on above: PATIENT NOT FASTINGP ERFORMED BY: DEREK Avilalin6370 [facility] [id number] Hemoglobin (Bld) [Mass/Vol] 14.1 g/dL Normal 11.1-15.9 [facility]; [facility] Work Phone: Comment on above: PATIENT NOT FASTINGP ERFORMED BY: DEREK Avilalin6370 [facility] [id number] Immature granulocytes (Bld) [#/Vol] 0.0 {x10E3/uL} Normal 0.0-0.1 [facility]; [facility] Work Phone: Comment on above: PATIENT NOT FASTINGP ERFORMED BY: DEREK Avilalin6370 [facility] [id number] Immature granulocytes (Bld) [#/Vol] 0.0 10*3/uL Normal 0.0-0.1 [facility]; [facility] Work Phone: Comment on above: PATIENT NOT FASTINGP ERFORMED BY: DEREK Avilalin6370 [facility] [id number] Immature granulocytes/100 WBC (Bld) 0 % Normal [facility]; [facility] Work Phone: Comment on above: PATIENT NOT FASTINGP ERFORMED BY: DEREK Avilalin6370 [facility] [id number] Lymphocytes (Bld) [#/Vol] 0.9 {x10E3/uL} Normal 0.7-3.1 [facility]; [facility] Work Phone: Comment on above: PATIENT NOT FASTINGP ERFORMED BY: CB [facility] Nunbdt04[address] RoadDublin [place] [id number] Lymphocytes (Bld) [#/Vol] 0.9 10*3/uL Normal 0.7-3.1 [facility]; [facility] Work Phone: Comment on above: PATIENT NOT FASTINGP ERFORMED BY: CB [facility] Vbigke32[address] RoadDublin [place] [id number] Lymphocytes/100 WBC (Bld) 15 % Normal [facility]; [facility] Work Phone: Comment on above: PATIENT NOT FASTINGP ERFORMED BY: CB [facility] Qrvzvv4[address] Roadblin [place] [id number] MCH (RBC) [Entitic mass] 30.2 pg Normal 26.6-33.0 [facility]; [facility] Work Phone: Comment on above: PATIENT NOT FASTINGP ERFORMED BY: CB [facility] Ujlsvp2213 [address] RoadSelect [facility] [place] [id number] MCHC (RBC) [Mass/Vol] 32.4 g/dL Normal 31.5-35.7 [facility] prehensive Internal Medicine; [facility] Work Phone: Comment on above: PATIENT NOT FASTINGP ERFORMED BY: CB [facility] Hzatss[address] RoadDublin [place] [id number] MCV (RBC) [Entitic vol] 93 fL Normal 79-97 [facility]; [facility] Work Phone: Comment on above: PATIENT NOT FASTINGP ERFORMED BY: CB [facility] Qlextd2902 [address] RoadDublin [place] [id number] Monocytes (Bld) [#/Vol] 0.5 {x10E3/uL} Normal 0.1-0.9 [facility]; [facility] Work Phone: Comment on above: PATIENT NOT FASTINGP ERFORMED BY: CB [facility] Zjyiat68[address] RoadDublin [place] [id number] Monocytes (Bld) [#/Vol] 0.5 10*3/uL Normal 0.1-0.9 [facility]; [facility] Work Phone: Comment on above: PATIENT NOT FASTINGP ERFORMED BY: DEREK Lab[facility] SosaMbuxlj9360 [address] RoadDublin [place] [id number] Monocytes/100 WBC (Bld) 8 % Normal [facility]; [facility] Work Phone: Comment on above: PATIENT NOT FASTINGP ERFORMED BY: CB [facility] Csktxn0821 [address] RoadDublin [place] [id number] Neutrophils (Bld) [#/Vol] 4.0 {x10E3/uL} Normal 1.4-7.0 [facility]; [facility] Work Phone: Comment on above: PATIENT NOT FASTINGP ERFORMED BY: DEREK LabHarini AvilaTusbim04[address] RoadDublin [place] [id number] Neutrophils (Bld) [#/Vol] 4.0 10*3/uL Normal 1.4-7.0 [facility]; [facility] Work Phone: Comment on above: PATIENT NOT FASTINGP ERFORMED BY: DEREK [facility] Qqygjm23[address] RoadDublin [place] [id number] Neutrophils/100 WBC (Bld) 72 % Normal [facility]; [facility] Work Phone: Comment on above: PATIENT NOT FASTINGP ERFORMED BY: DEREK [facility] Mnmtno2948 [address] RoadDublin [place] [id number] Platelets (Bld) [#/Vol] 288 {x10E3/uL} Normal 150-450 [facility]; [facility] Work Phone: Comment on above: PATIENT NOT FASTINGP ERFORMED BY: CB [facility] Stbklr7390 [address] RoadDublin [place] [id number] Platelets (Bld) [#/Vol] 288 10*3/uL Normal 150-450 [facility]; [facility] Work Phone: Comment on above: PATIENT NOT FASTINGP ERFORMED BY: CB [facility] Kugexi4[address] RoadDublin [place] [id number] RBC (Bld) [#/Vol] 4.67 {x10E6/uL} Normal 3.77-5.28 [facility]; [facility] Work Phone: Comment on above: PATIENT NOT FASTINGP ERFORMED BY: DEREK Sosa[address] RoadD[address] [place] [id number] RBC (Bld) [#/Vol] 4.67 10*6/uL Normal 3.77-5.28 [facility]; [facility] Work Phone: Comment on above: PATIENT NOT FASTINGP ERFORMED BY: DEREK [facility] Bharam16[address] RoadDublin [place] [id number] WBC (Bld) [#/Vol] 5.6 {x10E3/uL} Normal 3.4-10.8 [facility]; [facility] Work Phone: Comment on above: PATIENT NOT FASTINGP ERFORMED BY: DEREK LabHarini AvilaPgbavb4330 [address] RoadDublin [place] [id number] WBC (Bld) [#/Vol] 5.6 10*3/uL Normal 3.4-10.8 [facility]; [facility] Work Phone: Comment on above: PATIENT NOT FASTINGP ERFORMED BY: DEREK Sosa[address] Road[address] [place] [id number] Celiac Disease Comphrehensiv e Profile (59161)Ordered By: Search Engine Optimization Strategist on 03-01-2021 Endomysium IgA Ql (S) Negative Normal [facility] prehensive Internal Medicine; [facility] Work Phone: Comment on above: PATIENT NOT FASTINGP ERFORMED BY: DEREK [facility] Vyapxa0123 [address] RoadDublin [place] [id number] Endomysium IgA Ql (S) Negative Normal [facility] prehensive Internal Medicine; [facility] Work Phone: Comment on above: PATIENT NOT FASTINGP ERFORMED BY: DEREK LabHarini AvilaTzorrf9552 [address] RoadDublin [place] [id number] Gliadin peptide IgA Qn (S) 4 {units} Normal 0-19 [facility]; [facility] Work Phone: Comment on above: Negative 0 - 19 Weak Positive 20 - 30 Moderate to Strong Positive >30 PATIENT NOT FASTINGP ERFORMED BY: DEREK LabHarini Ynlsfj[address] YETI GroupScionHealth [id number] Gliadin peptide IgG Qn (S) 2 {units} Normal 0-19 [facility]; [facility] Work Phone: Comment on above: Negative 0 - 19 Weak Positive 20 - 30 Moderate to Strong Positive >30 PATIENT NOT FASTINGP ERFORMED BY: DEREK LabCocl[facility] Bbsyvx08[address] YETI GroupSelect [facility] [place] [place] [id number] IgA [Mass/Vol] 158 mg/dL Normal 87-352 Comprehens ary Internal Medicine; [facility] Work Phone: Comment on above: PATIENT NOT FASTINGP ERFORMED BY: DEREK LabHarini Fbkyhb[address] YETI GroupScion[facility] [id number] tTG IgA Qn (S) <2 Normal 0-3 [...] PATIENT NOT FASTINGP ERFORMED BY: DEREK LabHarini Udltzb3287 [address] YETI GroupScion[facility] [id number] tTG IgG Qn (S) <2 Normal 0-5 Comprehens ar[facility]; [facility] Work Phone: Comment on above: Negative 0 - 5 Weak Positive 6 - 9 Positive >9 PATIENT NOT FASTINGP ERFORMED BY: CB [facility] Bilzrm[address] YETI GroupScion[facility] [id number] LIPASE (49552)Ordered By: Edil stem Showcase Maker on 03-01-2021 Lipase [Catalytic activity/Vol] 32 U/L Normal 14-72 [facility]; [facility] Work Phone: Comment on above: PATIENT NOT FASTINGP ERFORMED BY: DEREK [facility] Lnbsnk9962 [address] YETI GroupSelect Specialty [facility] [place] [id number] Lyme Disease Antibody W/ Ref michel ([id number])Ordered By: Search Engine Optimization Strategist on 03-01-2021 B. burgdorferi IgG+IgM Qn (S) {index_val} Normal 0.00-0.90 [facility]; [facility] Work Phone: Comment on above: Negative <0.91 Equiv ocal 0.91 - 1.09 Positive >1.09 PATIENT NOT FASTINGP ERFORMED BY: [facility]6370 [facility] [id number] B. burgdorferi IgG+IgM Qn (S) {index_val} Normal 0.00-0.90 [facility]; [facility] Work Phone: Comment on above: Negative <0.91 Equiv ocal 0.91 - 1.09 Positive >1.09 PATIENT NOT FASTINGP ERFORMED BY: [facility]6370 [facility] [id number] Metabolic Panel, Comprehensi ve (08407)Ordered By: Search Engine Optimization Strategist on 03-01-2021 Albumin [Mass/Vol] 4.5 g/dL Normal 3.8-4.9 [facility]; [facility] Work Phone: Comment on above: PATIENT NOT FASTINGP ERFORMED BY: [facility] Rriorn6318 [facility] [id number] Albumin/Globulin [Mass ratio] 1.7 {ratio} Normal 1.2-2.2 [facility]; [facility] Work Phone: Comment on above: PATIENT NOT FASTINGP ERFORMED BY: [facility] Smjmnk3938 [facility] [id number] ALP [Catalytic activity/Vol] 93 [iU]/L Normal 39-117 [facility]; [facility] Work Phone: Comment on above: PATIENT NOT FASTINGP ERFORMED BY: [facility] Lqsgfw8906 [facility] [id number] ALP [Catalytic activity/Vol] 93 U/L Normal 39-117 [facility]; [facility] Work Phone: Comment on above: PATIENT NOT FASTINGP ERFORMED BY: DEREK LabC[facility] SosaHlpxba0009 [address] RoadDublin [place] [id number] ALT [Catalytic activity/Vol] 20 [iU]/L Normal 0-32 [facility]; [facility] Work Phone: Comment on above: PATIENT NOT FASTINGP ERFORMED BY: DEREK LabHarini AvilaZfgega57[address] RoadDublin [place] [id number] ALT [Catalytic activity/Vol] 20 U/L Normal 0-32 [facility]; [facility] Work Phone: Comment on above: PATIENT NOT FASTINGP ERFORMED BY: DEREK LabHarini AvilaXdirep0203 [address] RoadDublin [place] [id number] AST [Catalytic activity/Vol] 21 [iU]/L Normal 0-40 [facility]; [facility] Work Phone: Comment on above: PATIENT NOT FASTINGP ERFORMED BY: DEREK Avilalin6[address] RoadD[address] [place] [id number] AST [Catalytic activity/Vol] 21 U/L Normal 0-40 [facility]; [facility] Work Phone: Comment on above: PATIENT NOT FASTINGP ERFORMED BY: DEREK Sosa[address] RoadDublin [place] [id number] Bilirubin [Mass/Vol] 0.3 mg/dL Normal 0.0-1.2 Comp rehensive Internal Medicine; [facility] Work Phone: Comment on above: PATIENT NOT FASTINGP ERFORMED BY: DEREK [facility] Gaaqlb5767 [address] RoadDublin [place] [id number] Calcium [Mass/Vol] 9.6 mg/dL Normal 8.7-10.2 [facility] Internal Medicine; [facility] Work Phone: Comment on above: PATIENT NOT FASTINGP ERFORMED BY: DEREK [facility] Eewoaw45[address] RoadDublin [place] [id number] Chloride [Moles/Vol] 100 mmol/L Normal 96-106 [facility] rehensive Internal Medicine; [facility] Work Phone: Comment on above: PATIENT NOT FASTINGP ERFORMED BY: CB [facility] Afefvu[address] RoadDublin [place] [id number] CO2 [Moles/Vol] 25 mmol/L Normal 20-29 [facility] [place] Internal Medicine; [facility] Work Phone: Comment on above: PATIENT NOT FASTINGP ERFORMED BY: CB [facility] Serlds14[address] RoadDublin [place] [id number] Creatinine [Mass/Vol] 0.79 mg/dL Normal 0.57-1.00 [facility] prehensive Internal Medicine; [facility] Work Phone: Comment on above: PATIENT NOT FASTINGP ERFORMED BY: CB [facility] Shuxrv23[address] RoadDublin [place] [id number] GFR/1.73 sq M predicted among blacks CKD-EPI (S/P/Bld) [Vol rate/Area] 97 mL/min/1.73 Normal [facility]; [facility] Work Phone: Comment on above: PATIENT NOT FASTINGP ERFORMED BY: CB [facility] Apecqj26[address] RoadDublin [place] [id number] GFR/1.73 sq M predicted among non-blacks CKD-EPI (S/P/Bld) [Vol rate/Area] 84 mL/min/1.73 Normal [facility]; [facility] Work Phone: Comment on above: PATIENT NOT FASTINGP ERFORMED BY: CB [facility] Aziyjs4[address] RoadDublin [place] [id number] Globulin (S) [Mass/Vol] 2.6 g/dL Normal 1.5-4.5 [facility]; [facility] Work Phone: Comment on above: PATIENT NOT FASTINGP ERFORMED BY: CB [facility] Caobyx37[address] RoadDublin [place] [id number] Glucose [Mass/Vol] 89 mg/dL Normal 65-99 [facility] Internal Medicine; [facility] Work Phone: Comment on above: PATIENT NOT FASTINGP ERFORMED BY: CB [facility] Bdpkoo47[address] RoadDublin [place] [id number] Potassium [Moles/Vol] 4.6 mmol/L Normal 3.5-5.2 [facility]; [facility] Work Phone: Comment on above: PATIENT NOT FASTINGP ERFORMED BY: DEREK LabCocl[facility] AvilaYdfjwy13[address] RoadDublin [place] [id number] Protein [Mass/Vol] 7.1 g/dL Normal 6.0-8.5 [facility] Internal Medicine; [facility] Work Phone: Comment on above: PATIENT NOT FASTINGP ERFORMED BY: CB [facility] Mfewpe90[address] RoadDublin [place] [id number] Sodium [Moles/Vol] 140 mmol/L Normal 134-144 [facility] Internal Medicine; [facility] Work Phone: Comment on above: PATIENT NOT FASTINGP ERFORMED BY: DEREK [facility] Pezzcf16[address] RoadDuin [place] [id number] Urea nitrogen [Mass/Vol] 10 mg/dL Normal 6-24 [facility]; [facility] Work Phone: Comment on above: PATIENT NOT FASTINGP ERFORMED BY: CB [facility] Ceqorh5[address] Roadblin [place] [id number] Urea nitrogen/Creatinine [Mass ratio] 13 mg/mg Normal 9-23 [facility] Internal Medicine; [facility] Work Phone: Comment on above: PATIENT NOT FASTINGP ERFORMED BY: CB [facility] Atekvc5[address] RoadDublin [place] [id number] TSH (THYROID STIMULATING HOR JUANA) ([id number])Ordered By: Search Engine Optimization Strategist on 03-01-2021 TSH Qn 1.760 {uIU/mL} Normal 0.450-4.500 [facility] [place] Internal Medicine; [facility] Work Phone: Comment on above: PATIENT NOT FASTINGP ERFORMED BY: CB [facility] Xtekkp2642 [address] RoadDublin [place] [id number] TSH (THYROID STIMULATING HOR JUANA) (27751)Ordered By: Search Engine Optimization Strategist on 04-20-2020 TSH Qn 1.180 {uIU/mL} Normal 0.450-4.500 [facility] Internal [facility]; [facility] Work Phone: Comment on above: PATIENT NOT FASTINGP ERFORMED BY: DEREK Avilalin[address] YETI GroupSelect Specialty Hospital - Greensboroin [place] [id number] CALCIFIDIOL (41989) VIT D 25 Ordered By: Search Engine Optimization Strategist on 10-09-2016 25-Hydroxyvitamin D2+25-Hydroxyvitamin D3 [Mass/Vol] 62.0 ng/mL Normal 30.0-100.0 [facility]; [facility] Work Phone: Comment on above: Vitamin D deficiency has been defined by the [place] ofMedicine and an Endocrine Society practice guideline as alevel of serum 25-OH vitamin D less than 20 ng/mL (1,2).The Endocrine Society went on to further define vitamin Dinsufficiency as a level between 21 and 29 ng/mL (2).1. IOM ([place] of Medicine). 2010. Dietary reference intakes for calcium and D. [place]: The National Academies Press.2. Jyoti MF, Ramana RIGGS, Jamilah MANZO, et al. Evaluation, treatment, and prevention of vitamin D deficiency: an Endocrine Society clinical practice guideline. JCEM. 2010; 96(7):1911-30. PATIENT WAS FASTINGP ERFORMED BY: DEREK [employer] [facility] HospitalGreen Revolution CoolingRandolph Health [id number] LIPID PANEL (27432)Ordered B y: Search Engine Optimization Strategist on 10-09-2016 Cholesterol [Mass/Vol] 210 mg/dL Abnormal 100-199 [facility] Internal [facility]; [facility] Work Phone: Comment on above: PATIENT WAS FASTINGP ERFORMED BY: DEREK [employer] Ayostt8138 [facility] Hospitalin [place] [id number] Cholesterol in HDL [Mass/Vol] 57 mg/dL Normal [facility]; [facility] Work Phone: Comment on above: According to ATP-III Guidelines, HDL-C >59 mg/dL is considered anegative risk factor for CHD. PATIENT WAS FASTINGP ERFORMED BY: Picklive[address] [facility] [id number] Cholesterol in LDL [Mass/Vol] 137 mg/dL Abnormal 0-99 [facility]; [facility] Work Phone: Comment on above: PATIENT WAS FASTINGP ERFORMED BY: DEREK LabHarini AvilaEkipid7368 [facility] [id number] Cholesterol in LDL/Cholesterol in HDL [Mass ratio] 2.4 {ratio_units} Normal 0.0-3.2 [facility]; [facility] Work Phone: Comment on above: LDL/HDL Ratio Men Wo men 1/2 Avg.Risk 1.0 1.5 Avg.Risk 3.6 3.2 2X Avg.Risk 6.2 5.0 3X Avg.Risk 8.0 6.1 PATIENT WAS FASTINGP ERFORMED BY: DEREK [facility]2Iván Oqkzcl5785 [facility] [id number] Cholesterol in VLDL [Mass/Vol] 16 mg/dL Normal 5-40 [facility]; [facility] Work Phone: Comment on above: PATIENT WAS FASTINGP ERFORMED BY: DEREK Avilalin6370 [facility] [id number] Triglyceride [Mass/Vol] 81 mg/dL Normal 0-149 [facility]; [facility] Work Phone: Comment on above: PATIENT WAS FASTINGP ERFORMED BY: DEREK LabHarini Clpltx9063 [facility] [id number] AMYLASE ([id number])Ordered By: Isabell ystem Showcase Maker on 09-05-2016 Amylase [Catalytic activity/Vol] 31 U/L Normal 31-124 [facility]; [facility] Work Phone: Comment on above: PATIENT NOT FASTINGP ERFORMED BY: DREEK [facility] Qulort7436 [facility] [id number] CBC W/AUTO DIFF WBC ([id number])O rdered By: Search Engine Optimization Strategist on 09-05-2016 Basophils (Bld) [#/Vol] 0.1 {x10E3/uL} Normal 0.0-0.2 [facility]; [facility] Work Phone: Comment on above: PATIENT NOT FASTINGP ERFORMED BY: CB [facility] Cvdpzd2969 [address] RoadDublin [place] [id number] Basophils (Bld) [#/Vol] 0.1 10*3/uL Normal 0.0-0.2 [facility]; [facility] Work Phone: Comment on above: PATIENT NOT FASTINGP ERFORMED BY: CB [facility] Cmyyak56[address] RoadDublin [place] [id number] Basophils/100 WBC (Bld) 1 % Normal [facility]; [facility] Work Phone: Comment on above: PATIENT NOT FASTINGP ERFORMED BY: CB [facility] Fzltik45[address] RoadDublin [place] [id number] Eosinophils (Bld) [#/Vol] 0.2 {x10E3/uL} Normal 0.0-0.4 [facility]; [facility] Work Phone: Comment on above: PATIENT NOT FASTINGP ERFORMED BY: CB [facility] Yqvkta9[address] RoadDublin [place] [id number] Eosinophils (Bld) [#/Vol] 0.2 10*3/uL Normal 0.0-0.4 [facility]; [facility] Work Phone: Comment on above: PATIENT NOT FASTINGP ERFORMED BY: CB [facility] Lwkzan96[address] RoadDublin [place] [id number] Eosinophils/100 WBC (Bld) 2 % Normal [facility]; [facility] Work Phone: Comment on above: PATIENT NOT FASTINGP ERFORMED BY: CB [facility] Pyrfql80[address] RoadDublin [place] [id number] Erythrocyte distribution width (RBC) [Ratio] 13.2 % Normal 12.3-15.4 [facility]; [facility] Work Phone: Comment on above: PATIENT NOT FASTINGP ERFORMED BY: CB [facility] Ytayjz83[address] RoadDublin [place] [id number] Hematocrit (Bld) [Volume fraction] 42.0 % Normal 34.0-46.6 [facility]; [facility] Work Phone: Comment on above: PATIENT NOT FASTINGP ERFORMED BY: DEREK Sosa[address] [facility] [place] [id number] Hemoglobin (Bld) [Mass/Vol] 14.1 g/dL Normal 11.1-15.9 [facility]; [facility] Work Phone: Comment on above: PATIENT NOT FASTINGP ERFORMED BY: CB LabCoclau AvilaNioxaa7[address] RoadDublin [place] [id number] Immature granulocytes (Bld) [#/Vol] 0.0 {x10E3/uL} Normal 0.0-0.1 [facility]; [facility] Work Phone: Comment on above: PATIENT NOT FASTINGP ERFORMED BY: DEREK Avlialin6[address] RoadDuin [place] [id number] Immature granulocytes (Bld) [#/Vol] 0.0 10*3/uL Normal 0.0-0.1 [facility]; [facility] Work Phone: Comment on above: PATIENT NOT FASTINGP ERFORMED BY: DEREK Sosa[address] [facility] HospitalD[facility] [place] [id number] Immature granulocytes/100 WBC (Bld) 0 % Normal [facility]; [facility] Work Phone: Comment on above: PATIENT NOT FASTINGP ERFORMED BY: DEREK Avilalin[address] [facility]in [place] [id number] Lymphocytes (Bld) [#/Vol] 1.4 {x10E3/uL} Normal 0.7-3.1 [facility]; [facility] Work Phone: Comment on above: PATIENT NOT FASTINGP ERFORMED BY: DEREK [facility] Kiiuwn4[address] RoadDublin [place] [id number] Lymphocytes (Bld) [#/Vol] 1.4 10*3/uL Normal 0.7-3.1 [facility]; [facility] Work Phone: Comment on above: PATIENT NOT FASTINGP ERFORMED BY: CB [facility] Jspoib7[address] RoadDublin [place] [id number] Lymphocytes/100 WBC (Bld) 16 % Normal [facility]; [facility] Work Phone: Comment on above: PATIENT NOT FASTINGP ERFORMED BY: DEREK Sosa6370 [facility] [id number] MCH (RBC) [Entitic mass] 31.6 pg Normal 26.6-33.0 [facility]; [facility] Work Phone: Comment on above: PATIENT NOT FASTINGP ERFORMED BY: DEREK [employer] Pmwvea5516 [facility] [id number] MCHC (RBC) [Mass/Vol] 33.6 g/dL Normal 31.5-35.7 [facility] prehensive Internal Medicine; [facility] Work Phone: Comment on above: PATIENT NOT FASTINGP ERFORMED BY: [facility]idCitizens [facility] Healthcare Hdmfqj2732 [facility] [id number] MCV (RBC) [Entitic vol] 94 fL Normal 79-97 [facility]; [facility] Work Phone: Comment on above: PATIENT NOT FASTINGP ERFORMED BY: DEREK Qureshi Sdranr6588 [facility] [id number] Monocytes (Bld) [#/Vol] 0.6 {x10E3/uL} Normal 0.1-0.9 [facility]; [facility] Work Phone: Comment on above: PATIENT NOT FASTINGP ERFORMED BY: DEREK Qureshi Drxbbz2151 [facility] [id number] Monocytes (Bld) [#/Vol] 0.6 10*3/uL Normal 0.1-0.9 [facility]; [facility] Work Phone: Comment on above: PATIENT NOT FASTINGP ERFORMED BY: DEREK Qureshi Hyemez4135 [facility] [id number] Monocytes/100 WBC (Bld) 7 % Normal [facility]; [facility] Work Phone: Comment on above: PATIENT NOT FASTINGP ERFORMED BY: DEREK LabCoclau AvilaMabnvm8232 [address] RoadDublin [place] [id number] Neutrophils (Bld) [#/Vol] 6.3 {x10E3/uL} Normal 1.4-7.0 [facility]; [facility] Work Phone: Comment on above: PATIENT NOT FASTINGP ERFORMED BY: DEREK LabHarini AvilaUwaqno28[address] RoadDublin [place] [id number] Neutrophils (Bld) [#/Vol] 6.3 10*3/uL Normal 1.4-7.0 [facility]; [facility] Work Phone: Comment on above: PATIENT NOT FASTINGP ERFORMED BY: DEREK LabHarini Sosa[address]Dublin [place] [id number] Neutrophils/100 WBC (Bld) 74 % Normal [facility]; [facility] Work Phone: Comment on above: PATIENT NOT FASTINGP ERFORMED BY: DEREK Sosa[address] RoadDublin [place] [id number] Platelets (Bld) [#/Vol] 281 {x10E3/uL} Normal 150-379 [facility]; [facility] Work Phone: Comment on above: PATIENT NOT FASTINGP ERFORMED BY: DEREK Sosa[address]Dublin [place] [id number] Platelets (Bld) [#/Vol] 281 10*3/uL Normal 150-379 [facility]; [facility] Work Phone: Comment on above: PATIENT NOT FASTINGP ERFORMED BY: CB [facility] Zyumsn00[address] RoadDublin [place] [id number] RBC (Bld) [#/Vol] 4.46 {x10E6/uL} Normal 3.77-5.28 [facility] Internal Medicine; [facility] Work Phone: Comment on above: PATIENT NOT FASTINGP ERFORMED BY: DEREK LabCoclau AvilaPxmgow8[address] RoadDublin [place] [id number] RBC (Bld) [#/Vol] 4.46 10*6/uL Normal 3.77-5.28 [facility]; [facility] Work Phone: Comment on above: PATIENT NOT FASTINGP ERFORMED BY: DEREK Sosa[address] [place] [id number] WBC (Bld) [#/Vol] 8.6 {x10E3/uL} Normal 3.4-10.8 [facility] Internal Medicine; [facility] Work Phone: Comment on above: PATIENT NOT FASTINGP ERFORMED BY: DEREK [facility] Yhnfop9[address] RoadDublin [place] [id number] WBC (Bld) [#/Vol] 8.6 10*3/uL Normal 3.4-10.8 [facility] Internal Medicine; [facility] Work Phone: Comment on above: PATIENT NOT FASTINGP ERFORMED BY: DEREK LabHarini AvilaKwaeah94[address] RoadDublin [place] [id number] LIPASE ([id number])Ordered By: Sy stem Showcase Maker on 09-05-2016 Lipase [Catalytic activity/Vol] 29 U/L Normal 0-59 [facility]; [facility] Work Phone: Comment on above: PATIENT NOT FASTINGP ERFORMED BY: DEREK LabHarini AvilaRexrsm5[address] RoadDublin [place] [id number] METABOLIC PANEL, COMPREHENSI VE ([id number])Ordered By: Search Engine Optimization Strategist on 09-05-2016 Albumin [Mass/Vol] 4.3 g/dL Normal 3.5-5.5 [facility] Internal Medicine; [facility] Work Phone: Comment on above: PATIENT NOT FASTINGP ERFORMED BY: DEREK [facility] Czsybn3246 [address] RoadDublin [place] [id number] Albumin/Globulin [Mass ratio] 1.5 {ratio} Normal 1.1-2.5 [facility] Internal Medicine; [facility] Work Phone: Comment on above: PATIENT NOT FASTINGP ERFORMED BY: DEREK [facility] Whfivv0742 [address] RoadDublin [place] [id number] ALP [Catalytic activity/Vol] 60 [iU]/L Normal 39-117 [facility]; [facility] Work Phone: Comment on above: PATIENT NOT FASTINGP ERFORMED BY: DEREK LabCoclau Xyxobx8523 [address] RoadDublin [place] [id number] ALP [Catalytic activity/Vol] 60 U/L Normal 39-117 [facility]; [facility] Work Phone: Comment on above: PATIENT NOT FASTINGP ERFORMED BY: CB [facility] Mimpfy8572 [address] RoadDublin [place] [id number] ALT [Catalytic activity/Vol] 20 [iU]/L Normal 0-32 [facility]; [facility] Work Phone: Comment on above: PATIENT NOT FASTINGP ERFORMED BY: CB LabCoclau AvilaUzgwai0126 [address] RoadDublin [place] [id number] ALT [Catalytic activity/Vol] 20 U/L Normal 0-32 [facility]; [facility] Work Phone: Comment on above: PATIENT NOT FASTINGP ERFORMED BY: CB LabCoclau AvilaZeywkp2292 [address] RoadDublin [place] [id number] AST [Catalytic activity/Vol] 21 [iU]/L Normal 0-40 [facility]; [facility] Work Phone: Comment on above: PATIENT NOT FASTINGP ERFORMED BY: DEREK Avilalin6[address] RoadDublin [place] [id number] AST [Catalytic activity/Vol] 21 U/L Normal 0-40 [facility]; [facility] Work Phone: Comment on above: PATIENT NOT FASTINGP ERFORMED BY: CB [facility] Kyvxvg8520 [address] RoadDublin [place] [id number] Bilirubin [Mass/Vol] 0.3 mg/dL Normal 0.0-1.2 Comp [facility] healthensive Internal Medicine; [facility] Work Phone: Comment on above: PATIENT NOT FASTINGP ERFORMED BY: CB [facility] Jeqopi87[address] RoadDublin [place] [id number] Calcium [Mass/Vol] 9.7 mg/dL Normal 8.7-10.2 Com[facility] Internal Medicine; [facility] Work Phone: Comment on above: PATIENT NOT FASTINGP ERFORMED BY: CB [facility] Ckjxrd8327 [address] RoadDublin [place] [id number] Chloride [Moles/Vol] 96 mmol/L Abnormal 97-108 [facility] rehensive Internal Medicine; [facility] Work Phone: Comment on above: Effective September 11, 2016 the reference interval for Chloride, Serum will be changing to: 97 - 106 PATIENT NOT FASTINGP ERFORMED BY: CB [facility] Rvgyog7[address] RoadDublin [place] [id number] CO2 [Moles/Vol] 25 mmol/L Normal 18-29 [facility] [place] Internal Medicine; [facility] Work Phone: Comment on above: PATIENT NOT FASTINGP ERFORMED BY: CB [facility] Qrocff6675 [address] RoadDublin [place] [id number] Creatinine [Mass/Vol] 0.68 mg/dL Normal 0.57-1.00 [facility]; [facility] Work Phone: Comment on above: PATIENT NOT FASTINGP ERFORMED BY: CB [facility] Vtzgbt1237 [address] RoadDublin [place] [id number] GFR/1.73 sq M predicted among blacks CKD-EPI (S/P/Bld) [Vol rate/Area] 116 mL/min/1.73 Normal [facility]; [facility] Work Phone: Comment on above: PATIENT NOT FASTINGP ERFORMED BY: CB [facility] Ithuvv7517 [address] RoadDublin [place] [id number] GFR/1.73 sq M predicted among non-blacks CKD-EPI (S/P/Bld) [Vol rate/Area] 101 mL/min/1.73 Normal [facility]; [facility] Work Phone: Comment on above: PATIENT NOT FASTINGP ERFORMED BY: CB [facility] Abknyt5227 [address] RoadDublin [place] [id number] Globulin (S) [Mass/Vol] 2.8 g/dL Normal 1.5-4.5 [facility]; [facility] Work Phone: Comment on above: PATIENT NOT FASTINGP ERFORMED BY: DEREK LabHarini AvilaXmyoph08[address] [facility]bl[facility] [place] [id number] Glucose [Mass/Vol] 82 mg/dL Normal 65-99 [facility] Internal Medicine; [facility] Work Phone: Comment on above: PATIENT NOT FASTINGP ERFORMED BY: DEREK LabHarini AvilaFersho6[address] [facility]in [place] [id number] Potassium [Moles/Vol] 4.4 mmol/L Normal 3.5-5.2 [facility] Internal Medicine; [facility] [...] PATIENT NOT FASTINGP ERFORMED BY: DEREK LabHarini AvilaLuqmoo68[address] [facility] [place] [id number] Protein [Mass/Vol] 7.1 g/dL Normal 6.0-8.5 [facility] Internal [facility]; [facility] Work Phone: Comment on above: PATIENT NOT FASTINGP ERFORMED BY: DEREK LabHarini AvilaXykcvg7372 [address] [facility] [place] [id number] Sodium [Moles/Vol] 140 mmol/L Normal 134-144 [facility] Internal [facility]; [facility] Work Phone: Comment on above: Effective September 11, 2016 the reference interval for Sodium, Serum will be changing to: 136 - 144 PATIENT NOT FASTINGP ERFORMED BY: DEREK [facility] Oxoncv8814 [address] [facility]in [place] [id number] Urea nitrogen [Mass/Vol] 19 mg/dL Normal 6-24 [facility] Internal Medicine; [facility] Work Phone: Comment on above: PATIENT NOT FASTINGP ERFORMED BY: DEREK [facility] Smjgcl9[address] [facility] [id number] Urea nitrogen/Creatinine [Mass ratio] 28 mg/mg Abnormal 9-23 [facility]; [facility] Work Phone: Comment on above: PATIENT NOT FASTINGP ERFORMED BY: DEREK [facility] Kivccr7[address] [facility] [id number] Sed Rate Erythrocyte ([id number]) Ordered By: Search Engine Optimization Strategist on 09-05-2016 ESR (Bld) [Velocity] 4 mm/h Normal 0-40 [facility] Internal Medicine; [facility] Work Phone: Comment on above: PATIENT NOT FASTINGP ERFORMED BY: CB [facility] Dunves20[address] [facility] [id number] CBC (AUTO) ([id number])Ordered By : Search Engine Optimization Strategist on 01-09-2014 Erythrocyte distribution width (RBC) [Ratio] 13.3 % Normal 12.3-15.4 [facility]; [facility] Work Phone: Comment on above: PATIENT NOT FASTINGP ERFORMED BY: CB [facility] Npcyxh6510 [facility] [id number] Hematocrit (Bld) [Volume fraction] 41.6 % Normal 34.0-46.6 [facility]; [facility] Work Phone: Comment on above: PATIENT NOT FASTINGP ERFORMED BY: DEREK [facility] Gxcpll3208 [facility] [id number] Hemoglobin (Bld) [Mass/Vol] 13.7 g/dL Normal 11.1-15.9 [facility]; [facility] Work Phone: Comment on above: PATIENT NOT FASTINGP ERFORMED BY: CB [facility] Nohykk2198 [address] [facility] [id number] MCH (RBC) [Entitic mass] 30.1 pg Normal 26.6-33.0 [facility]; [facility] Work Phone: Comment on above: PATIENT NOT FASTINGP ERFORMED BY: CB [facility] Wtjbkm5765 [facility] [id number] MCHC (RBC) [Mass/Vol] 32.9 g/dL Normal 31.5-35.7 [facility] prehensive Internal Medicine; [facility] Work Phone: Comment on above: PATIENT NOT FASTINGP ERFORMED BY: DEREK LabCoclau SosaGvrzxf4560 [address] RoadDublin [place] [id number] MCV (RBC) [Entitic vol] 91 fL Normal 79-97 [facility]; [facility] Work Phone: Comment on above: PATIENT NOT FASTINGP ERFORMED BY: CB [facility] Qaelgn1938 [address] RoadDublin [place] [id number] Platelets (Bld) [#/Vol] 326 {x10E3/uL} Normal 155-379 [facility]; [facility] Work Phone: Comment on above: PATIENT NOT FASTINGP ERFORMED BY: CB [facility] Swrynw9999 [address] RoadDublin [place] [id number] Platelets (Bld) [#/Vol] 326 10*3/uL Normal 155-379 [facility]; [facility] Work Phone: Comment on above: PATIENT NOT FASTINGP ERFORMED BY: CB [facility] Dzfmwr0394 [address] RoadDublin [place] [id number] RBC (Bld) [#/Vol] 4.55 {x10E6/uL} Normal 3.77-5.28 [facility]; [facility] Work Phone: Comment on above: PATIENT NOT FASTINGP ERFORMED BY: CB [facility] Hyokzx1021 Root RoadDublin [place] [id number] RBC (Bld) [#/Vol] 4.55 10*6/uL Normal 3.77-5.28 [facility] Work Phone: Comment on above: PATIENT NOT FASTINGP ERFORMED BY: CB [facility] Xppjzi4150 [address] RoadDublin [place] [id number] WBC (Bld) [#/Vol] 8.2 {x10E3/uL} Normal 3.4-10.8 [facility] prehensive Internal Medicine; [facility] Work Phone: Comment on above: PATIENT NOT FASTINGP ERFORMED BY: DEREK LabCoclau AvilaNnbsdl2980 [address] [facility] [place] [id number] WBC (Bld) [#/Vol] 8.2 10*3/uL Normal 3.4-10.8 [facility] Internal Medicine; [facility] Work Phone: Comment on above: PATIENT NOT FASTINGP ERFORMED BY: DEREK [facility] Kmtgvw6147 [facility] [id number] METABOLIC PANEL, COMPREHENSI VE (49764)Ordered By: Search Engine Optimization Strategist on 01-09-2014 Albumin [Mass/Vol] 4.2 g/dL Normal 3.5-5.5 [facility] Internal Medicine; [facility] Work Phone: Comment on above: PATIENT NOT FASTINGP ERFORMED BY: DEREK LabCoclau SosaPbsyji2357 [facility] [id number] Information: [id number], 803130 Albumin/Globulin [Mass ratio] 1.5 {ratio} Normal 1.1-2.5 [facility]; [facility] Work Phone: Comment on above: PATIENT NOT FASTINGP ERFORMED BY: DEREK [facility] Nkkyak8080 [facility] [id number] Information: [id number], [id number] ALP [Catalytic activity/Vol] 57 [iU]/L Normal 39-117 [facility]; [facility] Work Phone: Comment on above: PATIENT NOT FASTINGP ERFORMED BY: DEREK [facility] Gsapdo7320 [address] [facility] [id number] Information: C52970, 500402 ALP [Catalytic activity/Vol] 57 U/L Normal 39-117 [facility]; [facility] Work Phone: Comment on above: PATIENT NOT FASTINGP ERFORMED BY: DEREK [facility] Ltloxh6832 [facility] [id number] Information: G71764, 212782 ALT [Catalytic activity/Vol] 16 [iU]/L Normal 0-32 [facility]; [facility] Work Phone: Comment on above: PATIENT NOT FASTINGP ERFORMED BY: DEREK Sosa6370 [facility] [id number] Information: Q48584, 381029 ALT [Catalytic activity/Vol] 16 U/L Normal 0-32 [facility]; [facility] Work Phone: Comment on above: PATIENT NOT FASTINGP ERFORMED BY: DEREK Sosa6370 [facility] [id number] Information: [id number], 666581 AST [Catalytic activity/Vol] 19 [iU]/L Normal 0-40 [facility]; [facility] Work Phone: Comment on above: PATIENT NOT FASTINGP ERFORMED BY: DEREK Sosa6370 [facility] [id number] Information: F30998, 518268 AST [Catalytic activity/Vol] 19 U/L Normal 0-40 [facility]; [facility] Work Phone: Comment on above: PATIENT NOT FASTINGP ERFORMED BY: DEREK Sosa6370 [facility] [id number] Information: F65411, 188244 Bilirubin [Mass/Vol] 0.3 mg/dL Normal 0.0-1.2 Comp rehensive Internal Medicine; [facility] Work Phone: Comment on above: PATIENT NOT FASTINGP ERFORMED BY: DEREK Avilalin6370 [facility] [id number] Information: Z91734, 749840 Calcium [Mass/Vol] 9.5 mg/dL Normal 8.7-10.2 [facility] Internal Medicine; [facility] Work Phone: Comment on above: PATIENT NOT FASTINGP ERFORMED BY: DEREK Avilalin6370 [facility] [id number] Information: V64544, 313139 Chloride [Moles/Vol] 98 mmol/L Normal 97-108 Comp rehensive Internal Medicine; [facility] Work Phone: Comment on above: PATIENT NOT FASTINGP ERFORMED BY: DEREK [facility] Wlmqqo2962 [address] [facility] [place] [id number] Information: L20022, 179191 CO2 [Moles/Vol] 27 mmol/L Normal 19-28 [facility] [place] Internal Medicine; [facility] Work Phone: Comment on above: PATIENT NOT FASTINGP ERFORMED BY: CB [facility] Tccfvq4840 [address] [facility] [place] [id number] Information: C25585, 922349 Creatinine [Mass/Vol] 0.70 mg/dL Normal 0.57-1.00 [facility]; [facility] Work Phone: Comment on above: PATIENT NOT FASTINGP ERFORMED BY: DEREK [facility] Ljbiad0245 [address] [facility] [id number] Information: G24674, 110395 GFR/1.73 sq M predicted among blacks CKD-EPI (S/P/Bld) [Vol rate/Area] 118 mL/min/1.73 Normal [facility]; [facility] Work Phone: Comment on above: PATIENT NOT FASTINGP ERFORMED BY: DEREK KeyCoclau AvilaKfdaxj4699 [address] [facility] [id number] Information: I49375, 547033 GFR/1.73 sq M predicted among non-blacks CKD-EPI (S/P/Bld) [Vol rate/Area] 102 mL/min/1.73 Normal [facility]; [facility] Work Phone: Comment on above: PATIENT NOT FASTINGP ERFORMED BY: CB [facility] Naaukm4410 [address] [facility] [id number] Information: Y05200, 057784 Globulin (S) [Mass/Vol] 2.8 g/dL Normal 1.5-4.5 [facility]; [facility] Work Phone: Comment on above: PATIENT NOT FASTINGP ERFORMED BY: CB [facility] Sipcad1158 [address] RoadSelect [facility] [place] [id number] Information: I38693, 674176 Glucose [Mass/Vol] 86 mg/dL Normal 65-99 [facility] Internal Medicine; [facility] Work Phone: Comment on above: PATIENT NOT FASTINGP ERFORMED BY: DEREK Sosa6370 [address] [facility] [id number] Information: V39657, 596611 Potassium [Moles/Vol] 4.6 mmol/L Normal 3.5-5.2 [facility] Internal Medicine; [facility] Work Phone: Comment on above: PATIENT NOT FASTINGP ERFORMED BY: DEREK LabCoclau AvilaAfpalz7629 [address] [facility] [id number] Information: D23034, 428409 Protein [Mass/Vol] 7.0 g/dL Normal 6.0-8.5 [facility] Internal [facility]; [facility] Work Phone: Comment on above: PATIENT NOT FASTINGP ERFORMED BY: DEREK LabCoclau AvilaVfveaz5210 [facility] [id number] Information: F11129, 987374 Sodium [Moles/Vol] 138 mmol/L Normal 134-144 [facility] Internal [facility]; [facility] Work Phone: Comment on above: PATIENT NOT FASTINGP ERFORMED BY: DEREK LabCoclau AvilaWuayvg7056 [facility] [id number] Information: F29467, 976375 Urea nitrogen [Mass/Vol] 18 mg/dL Normal 6-24 [facility]; [facility] Work Phone: Comment on above: PATIENT NOT FASTINGP ERFORMED BY: CB [facility] Jxpfgz7106 [address] [facility] [id number] Information: A94459, 052710 Urea nitrogen/Creatinine [Mass ratio] 26 mg/mg Abnormal 9-23 [facility]; [facility] Work Phone: Comment on above: PATIENT NOT FASTINGP ERFORMED BY: CB [facility] Awoccu6558 [address] [facility] [id number] Information: L73906, 897083 PROLACTIN (23643)Ordered By: Search Engine Optimization Strategist on 01-09-2014 Prolactin [Mass/Vol] 5.8 ng/mL Normal 4.8-23.3 [facility] Internal Medicine; [facility] Internal Medicine Work Phone: Comment on above: PATIENT NOT FASTINGP ERFORMED BY: [employer] [facility] Txmcqt8409 Root RoadDublin [place] [id number] PT (PROTHROMBIN TIME) (99043 )Ordered By: Search Engine Optimization Strategist on 01-09-2014 INR Coag (PPP) [Relative time] 0.9 {INR} Normal 0.8-1.2 [facility] Internal Medicine; [facility] Internal Medicine Work Phone: Comment on above: Reference interval i s for non-anticoagulated patients. . Suggested INR therapeutic range for Vitamin K antagonist therapy: Standard Dose (moderate intensity therapeutic range): 2.0 - 3.0 Higher intensity therapeutic range 2.5 - 3.5 PATIENT NOT FASTINGP ERFORMED BY: [facility] Hbnzzc1576 Root RoadDublin [place] [id number] PT Coag (PPP) [Time] 9.9 {sec} Normal 9.1-12.0 [facility]; [facility] Work Phone: Comment on above: PATIENT NOT FASTINGP ERFORMED BY: CB [facility] Gjgvfk2741 Root RoadDublin [place] [id number] PT Coag (PPP) [Time] 9.9 s Normal 9.1-12.0 [facility] Internal Medicine; [facility] Work Phone: Comment on above: PATIENT NOT FASTINGP ERFORMED BY: CB [facility] Kyixiu3003 [address] RoadDublin [place] [id number] PTT (ACTIVATED PARTIAL THROM BOPLASTIN TIME) (39171)Ordered By: Search Engine Optimization Strategist on 01-09-2014 aPTT Coag (PPP) [Time] 31 {sec} Normal 24-33 [facility] Internal Medicine; [facility] Internal Medicine Work Phone: Comment on above: This test has not be en validated for monitoring unfractionated heparintherapy. aPTT-based therapeutic ranges for unfractionated heparintherapy have not been established. For general guidelines onHeparin monitoring, refer to the [employer] Directory of Services. PATIENT NOT FASTINGP ERFORMED BY: [employer] Pysrmo7624 [facility] [id number] aPTT Coag (PPP) [Time] 31 s Normal 24-33 [facility] Internal Medicine; [facility] Work Phone: Comment on above: This test has not be en validated for monitoring unfractionated heparintherapy. aPTT-based therapeutic ranges for unfractionated heparintherapy have not been established. For general guidelines onHeparin monitoring, refer to the [employer] Directory of Services. PATIENT NOT FASTINGP ERFORMED BY: [employer] Evyzup0141 [facility] [id number] TSH (45888)Ordered By: Sourav m Showcase Maker on 01-09-2014 TSH Qn 1.900 {uIU/mL} Normal 0.450-4.500 [facility] [place] Internal Medicine; [facility] Work Phone: Comment on above: PATIENT NOT FASTINGP ERFORMED BY: [facility] Dykuzt4850 [facility] [id number] Vitamin D Hydroxy (03574)Ord ered By: Search Engine Optimization Strategist on 01-09-2014 25-Hydroxyvitamin D2+25-Hydroxyvitamin D3 [Mass/Vol] 49.5 ng/mL Normal 30.0-100.0 [facility]; [facility] Work Phone: Comment on above: Vitamin D deficiency has been defined by the [place] ofMedicine and an Endocrine Society practice guideline as alevel of serum 25-OH vitamin D less than 20 ng/mL (1,2).The Endocrine Society went on to further define vitamin Dinsufficiency as a level between 21 and 29 ng/mL (2).1. IOM ([place] of Medicine). 2010. Dietary reference intakes for calcium and D. [place]: The National Academies Press.2. Jyoti PASCAL, Ramana RIGGS, Jamilah MANZO, et al. Evaluation, treatment, and prevention of vitamin D deficiency: an Endocrine Society clinical practice guideline. JCEM. 2010; 96(7):1911-30. PATIENT NOT FASTINGP ERFORMED BY: [facility] Jwvbyz3458 [facility] [id number] Urinalysis, Office (41723)Or dered By: Soheila Moore on 12-03-2013 Bilirubin [...] Medicine Work Phone: WILFRED (ANTINUCLEAR ANTIBODY) ( 22114)Ordered By: Search Engine Optimization Strategist on 01-17-2012 Nuclear Ab Ql (S) Negative Normal Compreh ensive Internal Medicine; [facility] Work Phone: Comment on above: PATIENT NOT FASTINGP ERFORMED BY: [employer] [facility] Zliunm9284 [address] YETI GroupScionHealth [id number] BY: [employer] [id number] Nuclear Ab Ql (S) Negative Normal Compreh ensive Internal Medicine; [facility] Work Phone: Comment on above: PATIENT NOT FASTINGP ERFORMED BY: CB [facility] Myostl5410 [address] [facility] [id number] BY: [employer] [id number] C-REACTIVE PROTEIN (00889)Or dered By: Search Engine Optimization Strategist on 01-17-2012 CRP [Mass/Vol] 14.3 mg/L Abnormal 0.0-4.9 Comprehens ary Internal Medicine; [facility] Work Phone: Comment on above: PATIENT NOT FASTINGP ERFORMED BY: CB [facility] Yvoeae2418 [facility] [id number] BY: [employer] [id number] CALCIFEDIOL (26012)Ordered B y: Search Engine Optimization Strategist on 01-17-2012 25-Hydroxyvitamin D2+25-Hydroxyvitamin D3 [Mass/Vol] 25.0 ng/mL Abnormal 30.0-100.0 [facility]; [facility] Work Phone: Comment on above: Vitamin D deficiency has been defined by the [place] ofMedicine and an Endocrine Society practice guideline as alevel of serum 25-OH vitamin D less than 20 ng/mL (1,2).The Endocrine Society went on to further define vitamin Dinsufficiency as a level between 21 and 29 ng/mL (2).1. IOM (Dracut of Medicine). 2010. Dietary reference intakes for calcium and D. [place]: The National Academies Press.2. Jyoti [place], Ramana [place], Jamilah MANZO, et al. Evaluation, treatment, and prevention of vitamin D deficiency: an Endocrine Society clinical practice guideline. JCEM. 2010; 96(7):1911-30. PATIENT NOT FASTINGP ERFORMED BY: [facility] Hytdqt7530 [facility] [id number] BY: Zero[address] [id number] CBC WITH MANUAL DIFF (17766) Ordered By: Search Engine Optimization Strategist on 01-17-2012 Basophils (Bld) [#/Vol] 0.1 {x10E3/uL} Normal 0.0-0.2 [facility]; [facility] Work Phone: Comment on above: PATIENT NOT FASTINGP ERFORMED BY: [employer] Chegiu3750 [facility] [id number] BY: Zero[address] [id number] Information: 810646,W69217 Basophils (Bld) [#/Vol] 0.1 10*3/uL Normal 0.0-0.2 [facility]; [facility] Work Phone: Comment on above: PATIENT NOT FASTINGP ERFORMED BY: [employer] Jkinbl7233 [facility] [id number] BY: Zero[address] [id number] Information: 781029,Q08864 Basophils/100 WBC (Bld) 1 % Normal 0-3 [facility]; [facility] Work Phone: Comment on above: PATIENT NOT FASTINGP ERFORMED BY: [employer] Mopbcs1853 [facility] [id number] BY: [address] [id number] Information: 639838,I95218 Eosinophils (Bld) [#/Vol] 0.3 {x10E3/uL} Normal 0.0-0.4 [facility]; [facility] Work Phone: Comment on above: PATIENT NOT FASTINGP ERFORMED BY: DEREK [facility] Hlfife9637 Root RoadDuin [place] [id number] BY: LabCo[address] [id number] Information: 717429,C32986 Eosinophils (Bld) [#/Vol] 0.3 10*3/uL Normal 0.0-0.4 [facility]; [facility] Work Phone: Comment on above: PATIENT NOT FASTINGP ERFORMED BY: DEREK [facility] Ityfqo7277 Root RoadDuRandolph Health [id number] BY: LabCo[address] [id number] Information: 339192,O83208 Eosinophils/100 WBC (Bld) 4 % Normal 0-7 [facility]; [facility] Work Phone: Comment on above: PATIENT NOT FASTINGP ERFORMED BY: CB [facility] Xwhxqc9617 [address] [facility] [id number] BY: LabCo[address] [id number] Information: 729093,F78200 Erythrocyte distribution width (RBC) [Ratio] 12.9 % Normal 11.7-15.0 [facility]; [facility] Work Phone: Comment on above: PATIENT NOT FASTINGP ERFORMED BY: CB [facility] Nblcfu0006 [address] [facility] [id number] BY: LabCo[address] [id number] Information: 373273,J86741 Hematocrit (Bld) [Volume fraction] 40.9 % Normal 34.0-44.0 [facility]; [facility] Work Phone: Comment on above: PATIENT NOT FASTINGP ERFORMED BY: CB [facility] Dkjarh5067 [address] [facility] [place] [id number] BY: [address] [id number] Information: 421391,O00554 Hemoglobin (Bld) [Mass/Vol] 14.0 g/dL Normal 11.5-15.0 [facility]; [facility] Work Phone: Comment on above: PATIENT NOT FASTINGP ERFORMED BY: [facility]6370 [facility] [id number] BY: [address] [id number] Information: 430482,F95866 Immature granulocytes (Bld) [#/Vol] 0.0 {x10E3/uL} Normal 0.0-0.1 [facility]; [facility] Work Phone: Comment on above: PATIENT NOT FASTINGP ERFORMED BY: [place] 0784070 [facility] [id number] BY: [address] [id number] Information: 867706,D38097 Immature granulocytes (Bld) [#/Vol] 0.0 10*3/uL Normal 0.0-0.1 [facility]; [facility] Work Phone: Comment on above: PATIENT NOT FASTINGP ERFORMED BY: [facility]6370 [facility] [id number] BY: [address] [id number] Information: 553719,I69585 Immature granulocytes/100 WBC (Bld) 0 % Normal 0-2 [facility]; [facility] Work Phone: Comment on above: PATIENT NOT FASTINGP ERFORMED BY: [facility] CenterCoSaint Barnabas Behavioral Health CenterZzjqvc3904 [facility] [id number] BY: [address] [id number] Information: 336407,E28614 Lymphocytes (Bld) [#/Vol] 1.5 {x10E3/uL} Normal 0.7-4.5 [facility]; [facility] Work Phone: Comment on above: PATIENT NOT FASTINGP ERFORMED BY: CB [facility] Jpxpob7748 [facility] [id number] BY: [address] [id number] Information: 512843,X85596 Lymphocytes (Bld) [#/Vol] 1.5 10*3/uL Normal 0.7-4.5 [facility]; [facility] Work Phone: Comment on above: PATIENT NOT FASTINGP ERFORMED BY: CB [facility] Lliqsm6004 [facility] [id number] BY: [address] [id number] Information: 448207,O33443 Lymphocytes/100 WBC (Bld) 19 % Normal 14-46 [facility]; [facility] Work Phone: Comment on above: PATIENT NOT FASTINGP ERFORMED BY: CB [facility] Uiilhm0106 [facility] [id number] BY: [address] [id number] Information: 855659,B73401 MCH (RBC) [Entitic mass] 31.3 pg Normal 27.0-34.0 [facility]; [facility] Work Phone: Comment on above: PATIENT NOT FASTINGP ERFORMED BY: CB [facility] Eyvxpv2553 [facility] [id number] BY: [address] [id number] Information: 920285,D48402 MCHC (RBC) [Mass/Vol] 34.2 g/dL Normal 32.0-36.0 [facility] prehensive Internal Medicine; [facility] Work Phone: Comment on above: PATIENT NOT FASTINGP ERFORMED BY: CB [facility] Lejxxw4258 [address] [facility] [id number] BY: Lab[address] [id number] Information: 894872,Z74009 MCV (RBC) [Entitic vol] 91 fL Normal 80-98 [facility]; [facility] Work Phone: Comment on above: PATIENT NOT FASTINGP ERFORMED BY: CB [facility] Yjbocb5016 [address] [facility] [id number] BY: [address] [id number] Information: 851760,C44292 Monocytes (Bld) [#/Vol] 0.6 {x10E3/uL} Normal 0.1-1.0 [facility]; [facility] Work Phone: Comment on above: PATIENT NOT FASTINGP ERFORMED BY: CB [facility] Bebsit2800 [facility] [id number] BY: [address] [id number] Information: 610414,L07904 Monocytes (Bld) [#/Vol] 0.6 10*3/uL Normal 0.1-1.0 [facility]; [facility] Work Phone: Comment on above: PATIENT NOT FASTINGP ERFORMED BY: CB [facility] Fshqxr7459 [facility] [id number] BY: [address] [id number] Information: 055644,G62203 Monocytes/100 WBC (Bld) 7 % Normal 4-13 [facility]; [facility] Work Phone: Comment on above: PATIENT NOT FASTINGP ERFORMED BY: CB [facility] Ngarbn0021 [address] [facility] [id number] BY: LabCo[address] [id number] Information: 744209,R09544 Neutrophils (Bld) [#/Vol] 5.6 {x10E3/uL} Normal 1.8-7.8 [facility]; [facility] Work Phone: Comment on above: PATIENT NOT FASTINGP ERFORMED BY: CB [facility] Iuowzx0263 [facility] [id number] BY: [facility] [address] [id number] Information: 894019,I78304 Neutrophils (Bld) [#/Vol] 5.6 10*3/uL Normal 1.8-7.8 [facility]; [facility] Work Phone: Comment on above: PATIENT NOT FASTINGP ERFORMED BY: [facility] Vsjtkp3889 [facility] [id number] BY: [address] [id number] Information: 140102,M69960 Neutrophils/100 WBC (Bld) 69 % Normal 40-74 [facility]; [facility] Work Phone: Comment on above: PATIENT NOT FASTINGP ERFORMED BY: CB [facility] Fdevmm8751 [facility] [id number] BY: LabCo[address] [id number] Information: 029910,X47573 Platelets (Bld) [#/Vol] 310 {x10E3/uL} Normal 140-415 [facility]; [facility] Work Phone: Comment on above: PATIENT NOT FASTINGP ERFORMED BY: CB [facility] Xgeynd3588 [facility] [id number] BY: [address] [id number] Information: 105529,P47855 Platelets (Bld) [#/Vol] 310 10*3/uL Normal 140-415 [facility]; [facility] Work Phone: Comment on above: PATIENT NOT FASTINGP ERFORMED BY: DEREK [facility] Duxddm6196 [facility] [id number] BY: [employer] [id number] Information: 156529,L71643 RBC (Bld) [#/Vol] 4.48 {x10E6/uL} Normal 3.80-5.10 [facility] Internal Medicine; [facility] Work Phone: Comment on above: PATIENT NOT FASTINGP ERFORMED BY: DEREK [employer] AvilaMbabin6548 [facility] [id number] BY: [employer] [id number] Information: 903173,[id number] RBC (Bld) [#/Vol] 4.48 10*6/uL Normal 3.80-5.10 [facility] Internal Medicine; [facility] Work Phone: Comment on above: PATIENT NOT FASTINGP ERFORMED BY: DEREK [employer]cl[employer] AvilaCcasti0741 [facility] [id number] BY: [employer] [id number] Information: [id number] WBC (Bld) [#/Vol] 8.1 {x10E3/uL} Normal 4.0-10.5 [facility] Internal Medicine; [facility] Work Phone: Comment on above: PATIENT NOT FASTINGP ERFORMED BY: DEREK [employer] Warfol4803 [facility] [id number] BY: [employer] [id number] Information: [id number] WBC (Bld) [#/Vol] 8.1 10*3/uL Normal 4.0-10.5 [facility]; [facility] Work Phone: Comment on above: PATIENT NOT FASTINGP ERFORMED BY: CB [facility] Bbwmrs0764 Root RoadDublTrigg County Hospital [id number] BY: LabCo[address] [id number] Information: [id number] METABOLIC PANEL, COMPREHENSI VE (82171)Ordered By: Search Engine Optimization Strategist on 01-17-2012 Albumin [Mass/Vol] 4.1 g/dL Normal 3.5-5.5 [facility]; [facility] Work Phone: Comment on above: PATIENT NOT FASTINGP ERFORMED BY: CB [facility] Elkkdc5908 [address] [facility] [id number] BY: LabCo[address] [id number] Albumin/Globulin [Mass ratio] 1.6 {ratio} Normal 1.1-2.5 [facility]; [facility] Work Phone: Comment on above: PATIENT NOT FASTINGP ERFORMED BY: CB [facility] Lprmfw5561 Root RoadDuRandolph Health [id number] BY: Lab[address] [id number] ALP [Catalytic activity/Vol] 60 [iU]/L Normal 25-150 [facility]; [facility] Work Phone: Comment on above: PATIENT NOT FASTINGP ERFORMED BY: CB [facility] Gqufxk5596 Root RoadScionHealth [id number] BY: Lab[address] [id number] ALP [Catalytic activity/Vol] 60 U/L Normal 25-150 [facility]; [facility] Work Phone: Comment on above: PATIENT NOT FASTINGP ERFORMED BY: CB [facility] Uueaty6549 Root RoadDublin [place] [id number] BY: Lab[address] [id number] ALT [Catalytic activity/Vol] 22 [iU]/L Normal 0-40 [facility]; [facility] Work Phone: Comment on above: PATIENT NOT FASTINGP ERFORMED BY: CB [facility] Yoxlfy2459 Root RoadDublin [place] [id number] BY: LabCo[address] [id number] ALT [Catalytic activity/Vol] 22 U/L Normal 0-40 [facility]; [facility] Work Phone: Comment on above: PATIENT NOT FASTINGP ERFORMED BY: CB [facility] Tbymjo6898 Root RoadDuin [place] [id number] BY: [facility] [address] [id number] AST [Catalytic activity/Vol] 22 [iU]/L Normal 0-40 [facility]; [facility] Work Phone: Comment on above: PATIENT NOT FASTINGP ERFORMED BY: CB [facility] Remgav6137 Root RoadScionHealth [id number] BY: LabCo[address] [id number] AST [Catalytic activity/Vol] 22 U/L Normal 0-40 [facility]; [facility] Work Phone: Comment on above: PATIENT NOT FASTINGP ERFORMED BY: CB [facility] Axsbfa7339 [address] [facility] [id number] BY: Lab[address] [id number] Bilirubin [Mass/Vol] 0.2 mg/dL Normal 0.0-1.2 [facility]; [facility] Work Phone: Comment on above: PATIENT NOT FASTINGP ERFORMED BY: CB [facility] Vbascm2780 [address] [facility] [id number] BY: Lab[address] [id number] Calcium [Mass/Vol] 9.3 mg/dL Normal 8.7-10.2 [facility] Internal Medicine; [facility] Work Phone: Comment on above: PATIENT NOT FASTINGP ERFORMED BY: CB [facility] Vtbipc3656 [address] [facility] [id number] BY: [facility] [address] [id number] Chloride [Moles/Vol] 98 mmol/L Normal 97-108 [facility] rehensive Internal Medicine; [facility] Work Phone: Comment on above: PATIENT NOT FASTINGP ERFORMED BY: CB [facility] Msxkmo1136 [address] [facility] [id number] BY: [facility] [address] [id number] CO2 [Moles/Vol] 24 mmol/L Normal 20-32 [facility] Internal [facility]; [facility] Work Phone: Comment on above: PATIENT NOT FASTINGP ERFORMED BY: CB [facility] Sjellw8893 [facility] [id number] BY: [facility] [address] [id number] Creatinine [Mass/Vol] 0.62 mg/dL Normal 0.57-1.00 [facility]; [facility] Work Phone: Comment on above: PATIENT NOT FASTINGP ERFORMED BY: CB [facility] Zdngil3442 [facility] [id number] BY: [facility] [address] [id number] GFR/1.73 sq M predicted among blacks MDRD [...] PATIENT NOT FASTINGP ERFORMED BY: CB [facility] Xgoyur2493 [facility] [id number] BY: [address] [id number] GFR/1.73 sq M predicted among non-blacks CKD-EPI (S/P/Bld) [Vol rate/Area] 108 mL/min/1.73 Normal [facility]; [facility] Work Phone: Comment on above: PATIENT NOT FASTINGP ERFORMED BY: [facility] Crkmtl7040 [facility] [id number] BY: [address] [id number] Globulin (S) [Mass/Vol] 2.6 g/dL Normal 1.5-4.5 [facility]; [facility] Work Phone: Comment on above: PATIENT NOT FASTINGP ERFORMED BY: LabLuca TechnologiesSaint Barnabas Behavioral Health CenterMqpnki1864 [facility] [id number] BY: Zero[address] [id number] Glucose [Mass/Vol] 90 mg/dL Normal 65-99 [facility] Internal Medicine; [facility] Work Phone: Comment on above: PATIENT NOT FASTINGP ERFORMED BY: [facility] Pshdvf7811 [facility] [id number] BY: Lab[address] [id number] Potassium [Moles/Vol] 4.4 mmol/L Normal 3.5-5.2 [facility]; [facility] Work Phone: Comment on above: PATIENT NOT FASTINGP ERFORMED BY: [facility] Sddiur3371 [facility] [id number] BY: [address] [id number] Protein [Mass/Vol] 6.7 g/dL Normal 6.0-8.5 [facility]; [facility] Work Phone: Comment on above: PATIENT NOT FASTINGP ERFORMED BY: CB [facility] Wvskby6994 [address] [facility] [id number] BY: [facility] [address] [id number] Sodium [Moles/Vol] 136 mmol/L Normal 134-144 [facility] Internal [facility]; [facility] Work Phone: Comment on above: PATIENT NOT FASTINGP ERFORMED BY: CB [facility] Euziwt4110 [address] [facility] [id number] BY: [facility] [address] [id number] Urea nitrogen [Mass/Vol] 17 mg/dL Normal 6-24 [facility]; [facility] Work Phone: Comment on above: PATIENT NOT FASTINGP ERFORMED BY: CB [facility] Gqoubp3105 [address] [facility] [id number] BY: LabCo[address] [id number] Urea nitrogen/Creatinine [Mass ratio] 27 mg/mg Abnormal 9-23 [facility]; [facility] Work Phone: Comment on above: PATIENT NOT FASTINGP ERFORMED BY: CB [facility] Nnbahr1456 [facility] [id number] BY: LabCo[address] [id number] RHEUMATOID FACTOR-QUANT (864 31)Ordered By: Search Engine Optimization Strategist on 01-17-2012 Rheumatoid factor Qn 9.9 {IU/mL} Normal 0.0-13.9 [facility] prehensive Internal Medicine; [facility] Work Phone: Comment on above: PATIENT NOT FASTINGP ERFORMED BY: CB [facility] Riwfeu2545 [address] [facility] [id number] BY: [facility]Co[address] [id number] Rheumatoid factor Qn 9.9 [IU]/mL Normal 0.0-13.9 [facility] prehensive Internal Medicine; [facility] Work Phone: Comment on above: PATIENT NOT FASTINGP ERFORMED BY: [facility] Lzpnjn3118 [address] [facility] [id number] BY: [place] [address]2327 [facility] [id number] SED RATE ERYTHROCYTE (64922) Ordered By: Search Engine Optimization Strategist on 01-17-2012 ESR (Bld) [Velocity] 23 mm/h Normal 0-32 Comp rehensive Internal Medicine; [facility] Work Phone: Comment on above: PATIENT NOT FASTINGP ERFORMED BY: [facility] Dhllsf8545 [address] [facility] [id number] BY: Zero[address] [id number] TSH (59255)Ordered By: Tradeose m Showcase Maker on 01-17-2012 TSH Qn 2.550 {uIU/mL} Normal 0.450-4.500 [facility] Internal Medicine; [facility] Work Phone: Comment on above: PATIENT NOT FASTINGP ERFORMED BY: [employer] Ffiknd2184 [address] [facility] [id number] BY: [employer] [id number] GARDNERELLA VAG, NUCLEIC ACI D DIR PROBE (85956)Ordered By: Search Engine Optimization Strategist on 11-08-2011 GARDNERELLA VAG, NUCLEIC ACID DIR PROBE (65897) Negative Normal [facility]; [facility] Work Phone: Comment on above: PATIENT NOT FASTINGP ERFORMED BY: [facility] Cmenwy2823 [address] [facility] [id number] Information: [id number] GARDNERELLA VAG, NUCLEIC ACID DIR PROBE (80826) Negative Normal [facility]; [facility] Work Phone: Comment on above: PATIENT NOT FASTINGP ERFORMED BY: [facility] Xuxhxp4339 [address] [facility] [id number] Information: [id number] URINE CEDRIC CULTURE (ESTIVEN COL COUNT) (52745)Ordered By: Search Engine Optimization Strategist on 11-08-2011 Bacteria identified Cx Nom (U) NG36 Normal [facility]; [facility] Work Phone: Comment on above: No growth in 36 - 48 hours. PATIENT NOT FASTINGP ERFORMED BY: CB [facility] Uddgbo2207 Root RoadDublin [place] [id number] Information: SRC:UR [id number] Bacteria identified Cx Nom (U) Final report Normal [facility]; [facility] Work Phone: Comment on above: PATIENT NOT FASTINGP ERFORMED BY: CB [facility] Oyzwaj7485 [address] RoadSelect [facility] [place] [id number] Information: SRC:UR [id number] CBC (Auto) (65934)Ordered By : Search Engine Optimization Strategist on 10-30-2011 Erythrocyte distribution width (RBC) [Ratio] 13.1 % Normal 11.7-15.0 [facility]; [facility] Work Phone: Comment on above: PATIENT WAS FASTINGP ERFORMED BY: CB [facility] Sidrqu2081 [address] [facility] [id number] Hematocrit (Bld) [Volume fraction] 41.8 % Normal 34.0-44.0 [facility]; [facility] Work Phone: Comment on above: PATIENT WAS FASTINGP ERFORMED BY: CB [facility] Xkbkew1871 [address] [facility] [id number] Hemoglobin (Bld) [Mass/Vol] 13.4 g/dL Normal 11.5-15.0 [facility]; [facility] Work Phone: Comment on above: PATIENT WAS FASTINGP ERFORMED BY: CB [facility] Eayzpv5988 [address] RoadDublin [place] [id number] MCH (RBC) [Entitic mass] 30.3 pg Normal 27.0-34.0 [facility]; [facility] Work Phone: Comment on above: PATIENT WAS FASTINGP ERFORMED BY: CB [facility] Ztgoir2442 [address] RoadDublin [place] [id number] MCHC (RBC) [Mass/Vol] 32.1 g/dL Normal 32.0-36.0 [facility] prehensive Internal Medicine; [facility] Work Phone: Comment on above: PATIENT WAS FASTINGP ERFORMED BY: DEREK [facility] Vpodpt1338 [address] RoadDublin [place] [id number] MCV (RBC) [Entitic vol] 95 fL Normal 80-98 [facility]; [facility] Work Phone: Comment on above: PATIENT WAS FASTINGP ERFORMED BY: CB [facility] Jqibpv9402 [address] RoadDublin [place] [id number] Platelets (Bld) [#/Vol] 285 {x10E3/uL} Normal 140-415 [facility]; [facility] Work Phone: Comment on above: PATIENT WAS FASTINGP ERFORMED BY: DEREK [facility] Txhpps1533 [address] RoadDublin [place] [id number] Platelets (Bld) [#/Vol] 285 10*3/uL Normal 140-415 [facility]; [facility] Work Phone: Comment on above: PATIENT WAS FASTINGP ERFORMED BY: CB [facility] Fpvurb7903 [address] RoadDublin [place] [id number] RBC (Bld) [#/Vol] 4.42 {x10E6/uL} Normal 3.80-5.10 [facility]; [facility] Work Phone: Comment on above: PATIENT WAS FASTINGP ERFORMED BY: CB [facility] Ttaztg2978 [address] RoadDublin [place] [id number] RBC (Bld) [#/Vol] 4.42 10*6/uL Normal 3.80-5.10 [facility]; [facility] Work Phone: Comment on above: PATIENT WAS FASTINGP ERFORMED BY: CB [facility] Pvilrw5228 [address] RoadDublin [place] [id number] WBC (Bld) [#/Vol] 6.2 {x10E3/uL} Normal 4.0-10.5 [facility] prehensive Internal Medicine; [facility] Work Phone: Comment on above: PATIENT WAS FASTINGP ERFORMED BY: DEREK LabCoclau Njqrwc7129 [address] [facility] [place] [id number] WBC (Bld) [#/Vol] 6.2 10*3/uL Normal 4.0-10.5 [facility] Internal [facility]; [facility] Work Phone: Comment on above: PATIENT WAS FASTINGP ERFORMED BY: DEREK LabHarini Yzhhap9753 [address] [facility] [id number] Lipid Panel (92460)Ordered B y: Search Engine Optimization Strategist on 10-30-2011 Cholesterol [Mass/Vol] 208 mg/dL Abnormal 100-199 [facility] Internal Medicine; [facility] Work Phone: Comment on above: PATIENT WAS FASTINGP ERFORMED BY: DEREK Kieraclau Jidntt7609 [facility] Hospitalin [place] [id number] Cholesterol in HDL [Mass/Vol] 50 mg/dL Normal [facility]; [facility] Work Phone: Comment on above: According to ATP-III Guidelines, HDL-C >59 mg/dL is considered anegative risk factor for CHD. PATIENT WAS FASTINGP ERFORMED BY: DEREK LabHarini Wxycxc7574 [address] [facility]in [place] [id number] Cholesterol in LDL [Mass/Vol] 142 mg/dL Abnormal 0-99 [facility]; [facility] Work Phone: Comment on above: PATIENT WAS FASTINGP ERFORMED BY: DEREK LabCoclau Yqufyo0095 [address] [facility] [id number] Cholesterol in LDL/Cholesterol in HDL [Mass ratio] 2.8 {ratio_units} Normal 0.0-3.2 [facility]; [facility] Work Phone: Comment on above: PATIENT WAS FASTINGP ERFORMED BY: DEREK [facility] Citjql1798 [address] [facility] [place] [id number] Cholesterol in VLDL [Mass/Vol] 16 mg/dL Normal 5-40 [facility]; [facility] Work Phone: Comment on above: PATIENT WAS FASTINGP ERFORMED BY: DEREK Qureshi Dfbtqz6299 [facility] [id number] Triglyceride [Mass/Vol] 78 mg/dL Normal 0-149 [facility]; [facility] Work Phone: Comment on above: PATIENT WAS FASTINGP ERFORMED BY: DEREK Avilalin6370 [facility] [id number] Metabolic Panel, Comprehensi ve (56796)Ordered By: Search Engine Optimization Strategist on 10-30-2011 Albumin [Mass/Vol] 4.0 g/dL Normal 3.5-5.5 [facility] Internal [facility]; [facility] Work Phone: Comment on above: PATIENT WAS FASTINGP ERFORMED BY: DEREK Qureshi Ummvgw7501 [facility] [id number] Information: [id number]; appt 11/08/11 Albumin/Globulin [Mass ratio] 1.4 {ratio} Normal 1.1-2.5 [facility]; [facility] Work Phone: Comment on above: PATIENT WAS FASTINGP ERFORMED BY: DEREK Qureshi Drpzee0170 [facility] [id number] Information: 606150,[id number]; appt 11/08/11 ALP [Catalytic activity/Vol] 60 [iU]/L Normal 25-150 [facility]; [facility] Work Phone: Comment on above: PATIENT WAS FASTINGP ERFORMED BY: [facility]idCit[facility] Zeytum2096 [facility] [id number] Information: 348844,[id number]; appt 11/08/11 ALP [Catalytic activity/Vol] 60 U/L Normal 25-150 [facility]; [facility] Work Phone: Comment on above: PATIENT WAS FASTINGP ERFORMED BY: DEREK Qureshi Elmjqt0299 [facility] [id number] Information: [id number]; appt 11/08/11 ALT [Catalytic activity/Vol] 15 [iU]/L Normal 0-40 [facility]; [facility] Work Phone: Comment on above: PATIENT WAS FASTINGP ERFORMED BY: DEREK LabCoclau SosaYyidqb9080 Root RoadEvanblin [place] [id number] Information: 355666,[id number]; appt 11/08/11 ALT [Catalytic activity/Vol] 15 U/L Normal 0-40 [facility]; [facility] Work Phone: Comment on above: PATIENT WAS FASTINGP ERFORMED BY: CB [facility] Slrxvw5442 Root RoadEvanblin [place] [id number] Information: 480580,[id number]; appt 11/08/11 AST [Catalytic activity/Vol] 19 [iU]/L Normal 0-40 [facility]; [facility] Work Phone: Comment on above: PATIENT WAS FASTINGP ERFORMED BY: DEREK [facility] Eoqecv4466 Root [facility] [place] [id number] Information: 027963,D76459; appt 11/08/11 AST [Catalytic activity/Vol] 19 U/L Normal 0-40 [facility]; [facility] Work Phone: Comment on above: PATIENT WAS FASTINGP ERFORMED BY: DEREK ShahidCoclau AvilaGbwldb7062 [address] [facility] [id number] Information: 112940,[id number]; appt 11/08/11 Bilirubin [Mass/Vol] 0.3 mg/dL Normal 0.0-1.2 Comp rehensive Internal Medicine; [facility] Work Phone: Comment on above: PATIENT WAS FASTINGP ERFORMED BY: DEREK [facility] Rmvqco6715 [address] [facility]in [place] [id number] Information: 640469,G96983; appt 11/08/11 Calcium [Mass/Vol] 8.8 mg/dL Normal 8.7-10.2 Compre [facility] Internal Medicine; [facility] Work Phone: Comment on above: PATIENT WAS FASTINGP ERFORMED BY: DEREK [facility] Shuqvb2961 [address] RoadSelect [facility] [place] [id number] Information: 452980,D50931; appt 11/08/11 Chloride [Moles/Vol] 102 mmol/L Normal 97-108 [facility] rehensive Internal Medicine; [facility] Work Phone: Comment on above: PATIENT WAS FASTINGP ERFORMED BY: [facility] Xywrpt7100 [facility] [id number] Information: 337112,F59455; appt 11/08/11 CO2 [Moles/Vol] 26 mmol/L Normal 20-32 Comprehen sive Internal Medicine; [facility] Work Phone: Comment on above: PATIENT WAS FASTINGP ERFORMED BY: [facility] Ysobnb2580 [facility] [id number] Information: 212965,H07422; appt 11/08/11 Creatinine [Mass/Vol] 0.67 mg/dL Normal 0.57-1.00 [facility] prehensive Internal Medicine; [facility] Work Phone: Comment on above: PATIENT WAS FASTINGP ERFORMED BY: [facility] Cdkamd1120 [facility] [id number] Information: 600210,[id number]; appt 11/08/11 GFR/1.73 sq M predicted among [...] formula. PATIENT WAS FASTINGP ERFORMED BY: [facility] Eziysd5609 [facility] [id number] Information: 693982,H74106; appt 11/08/11 GFR/1.73 sq M predicted among non-blacks CKD-EPI (S/P/Bld) [Vol rate/Area] 105 mL/min/1.73 Normal [facility]; [facility] Work Phone: Comment on above: PATIENT WAS FASTINGP ERFORMED BY: DEREK Qureshi Tphfwc3822 [facility] [id number] Information: [id number],[id number]; appt 11/08/11 Globulin (S) [Mass/Vol] 2.8 g/dL Normal 1.5-4.5 [facility]; [facility] Work Phone: Comment on above: PATIENT WAS FASTINGP ERFORMED BY: DEREK [facility]6370 [facility] [id number] Information: 374786,F33797; appt 11/08/11 Glucose [Mass/Vol] 87 mg/dL Normal 65-99 [facility] Internal [facility]; [facility] Work Phone: Comment on above: PATIENT WAS FASTINGP ERFORMED BY: DEREK ShahidCitizens Memorial Healthcare Cwaflk5982 [facility] [id number] Information: 791684,[id number]; appt 11/08/11 Potassium [Moles/Vol] 4.0 mmol/L Normal 3.5-5.2 [facility]; [facility] Work Phone: Comment on above: PATIENT WAS FASTINGP ERFORMED BY: [facility]6370 [facility] [id number] Information: 559626,[id number]; appt 11/08/11 Protein [Mass/Vol] 6.8 g/dL Normal 6.0-8.5 [facility] Internal Medicine; [facility] Work Phone: Comment on above: PATIENT WAS FASTINGP ERFORMED BY: [facility]6370 [facility] [id number] Information: 534876,C68743; appt 11/08/11 Sodium [Moles/Vol] 139 mmol/L Normal 135-145 [facility]; [facility] Work Phone: Comment on above: Effective November 13, 2011 Sodium, Serum reference interval will be changing to: 134 - 144 mmol/L PATIENT WAS FASTINGP ERFORMED BY: [employer] Aisuas7479 [facility] [id number] Information: [id number],R21066; appt 11/08/11 Urea nitrogen [Mass/Vol] 11 mg/dL Normal 6-24 [facility]; [facility] Work Phone: Comment on above: PATIENT WAS FASTINGP ERFORMED BY: [employer] TechnologiesSaint Barnabas Behavioral Health CenterRhojdf3419 [facility] [id number] Information: 307246,[id number]; appt 11/08/11 Urea nitrogen/Creatinine [Mass ratio] 16 mg/mg Normal 9-23 [facility]; [facility] Work Phone: Comment on above: PATIENT WAS FASTINGP ERFORMED BY: [employer] TechnologiesSaint Barnabas Behavioral Health CenterZderqi0294 [facility] [id number] Information: 770041,G04601; appt 11/08/11 Urinalysis, Office (64502)Or dered By: Marybel Almonte on 10-27-2011 Bilirubin [...] Ql (U) Negative Normal [facility]; [facility] Internal Medicine Work Phone: Nitrite Ql (U) Negative Normal Comprehens ary Internal Medicine; [facility] Internal Medicine Work Phone: Nitrite Ql (U) Negative Normal Comprehens ary Internal Medicine; [facility] Internal Medicine Work Phone: pH (U) 6.0 [pH] Normal [facility]; [facility] Internal Medicine Work Phone: Protein Ql (U) Negative Normal Comprehens ary Internal Medicine; [facility] Internal Medicine Work Phone: Protein Ql (U) Negative Normal Comprehens ary Internal Medicine; [facility] Internal Medicine Work Phone: Specific gravity (U) [Rel density] 1.005 1 Normal [facility]; [facility] Internal Medicine Work Phone: Urobilinogen (24H U) [Mass/Time] Normal Normal [facility] Internal Medicine; [facility] Internal Medicine Work Phone: Vital Signs Date Time Vital Sign Value Performing Clinician Facility 09-21-2025 06:57-0400 Body mass index (BMI) [Ratio] 44.1 kg/m2 [facility] 09-21-2025 06:57-0400 Body weight 112.94 kg [facility] 09-21-2025 06:57-0400 Diastolic blood pressure 81 mm[Hg] [facility] 09-21-2025 06:57-0400 Heart rate 96 /min [facility] 09-21-2025 06:57-0400 Respiratory rate 18 /min [facility] 09-21-2025 06:57-0400 SaO2% (BldA) [Mass fraction] 100 % [facility] 09-21-2025 06:57-0400 Systolic blood pressure 145 mm[Hg] [facility] 09-07-2025 16:49-0400 Body temperature 97.8 [degF] [facility] 09-07-2025 16:49-0400 Diastolic blood pressure 81 mm[Hg] [facility] 09-07-2025 16:49-0400 Heart rate 89 /min [facility] 09-07-2025 16:49-0400 Respiratory rate 18 /min [facility] 09-07-2025 16:49-0400 SaO2% (BldA) [Mass fraction] 98 % [facility] 09-07-2025 16:49-0400 Systolic blood pressure 136 mm[Hg] [facility] 09-07-2025 12:51-0400 Body height 160.02 cm [facility] 09-07-2025 12:51-0400 Body mass index (BMI) [Ratio] 43.9 kg/m2 [facility] 09-07-2025 12:51-0400 Body weight 112.53 kg [facility] 05-14-2025 13:46-0400 Body height 160.02 cm [facility] 05-14-2025 13:46-0400 Body mass index (BMI) [Ratio] 44.9 kg/m2 [facility] 05-14-2025 13:46-0400 Body weight 115.[address] [facility] 05-14-2025 13:46-0400 Diastolic blood pressure 94 mm[Hg] [facility] 05-14-2025 13:46-0400 Heart rate 94 /min [facility] 05-14-2025 13:46-0400 Respiratory rate 18 /min [facility] 05-14-2025 13:46-0400 SaO2% (BldA) [Mass fraction] 97 % [facility] 05-14-2025 13:46-0400 Systolic blood pressure 164 mm[Hg] [facility] 04-06-2025 20:04-0400 Diastolic blood pressure 62 mm[Hg] Mary Reza [facility] 04-06-2025 20:04-0400 Heart rate 68 /min [facility] 04-06-2025 20:04-0400 Respiratory rate 18 /min [facility] 04-06-2025 20:04-0400 SaO2% (BldA) [Mass fraction] 97 % [facility] 04-06-2025 20:04-0400 Systolic blood pressure 105 mm[Hg] [facility] 04-06-2025 18:07-0400 Body temperature 97.9 [degF] [facility] 04-06-2025 13:39-0400 Body mass index (BMI) [Ratio] 47 kg/m2 [facility] 04-06-2025 13:39-0400 Body weight 120.4 kg [facility] 04-06-2025 12:49-0400 Body height 160.02 cm [facility] 03-29-2023 11:30-0400 Body weight 114.31 kg Marques Paul MD Work Phone: [facility] 03-29-2023 11:30-0400 Diastolic blood pressure 84 mm[Hg] Marques Paul MD Work Phone: [facility] 03-29-2023 11:30-0400 Systolic blood pressure 146 mm[Hg] Marques Paul MD Work Phone: [facility] 11-01-2022 14:22-0500 Body height 160.02 cm Shannon Cordova LPN [facility]; [facility] Work Phone: 11-01-2022 14:22-0500 Body mass index (BMI) [Ratio] 42.87 kg/m2 Shannon Cordova LPN [facility]; [facility] Work Phone: 11-01-2022 14:22-0500 Body surface area Derived from formula 2.1 m2 Shannon Mathurrb VARIETY PERFORMER [facility]; [facility] Work Phone: 11-01-2022 14:22-0500 Body temperature 97.2 [degF] Shannon Mathurrb VARIETY PERFORMER [facility]; [facility] Work Phone: 11-01-2022 14:22-050 Body weight 109.77 kg Shannon Mathurrb VARIETY PERFORMER [facility]; [facility] Work Phone: 11-01-2022 14:22-0500 Diastolic blood pressure 90 mm[Hg] Shannon Mathurrb VARIETY PERFORMER [facility]; [facility] Work Phone: Comment on above: Patient Position: Sitting; Cuff Location : Left Arm; Cuff Size: Standard 11-01-2022 14:22-0500 Heart rate 81 /min Shannon Mathurrb VARIETY PERFORMER [facility]; [facility] Work Phone: Comment on above: Pattern: Regular 11-01-2022 14:22-0500 Respiratory rate 16 /min Shannon Mathurrb VARIETY PERFORMER [facility]; [facility] Work Phone: Comment on above: Pattern: Unlabored 11-01-2022 14:22-0500 SaO2% (BldA) [Mass fraction] 98 % Shannon Slarb VARIETY PERFORMER [facility]; [facility] Work Phone: Comment on above: Room air 11-01-2022 14:22-0500 Systolic blood pressure 140 mm[Hg] Shannon Mathurrb VARIETY PERFORMER [facility]; [facility] Work Phone: Comment on above: Patient Position: Sitting; Cuff Location : Left Arm; Cuff Size: Standard 06-08-2022 15:32-0400 Body weight 117.11 kg [facility] Work Phone: 03-15-2021 11:25-0400 Body height 160.02 cm Huber De Los Santos VARIETY PERFORMER [facility]; [facility] Work [...] Mass Index) 42.87 kg/m2 Shannon Cordova LPN [facility] [place] Internal [facility]; [facility] Work Phone: Comment on above: pt did not report 03-11-2021 09:25-0400 Body weight 109.77 kg Shannon Mathurjosh VARIETY PERFORMER [facility]; [facility] Work Phone: Comment on above: pt did not report 03-11-2021 09:25-0400 BSA (Body Surface Area) 2.1 m2 Shannon Slarb VARIETY PERFORMER [facility]; [facility] Work Phone: Comment on above: pt did not report 03-11-2021 09:25-0400 Height 160.02 cm Shannon Tasha VARIETY PERFORMER [facility]; [facility] Work Phone: Comment on above: pt did not report 03-01-2021 07:53-0400 BMI (Body Mass Index) 42.87 kg/m2 Huber De Los Santos LPN [facility] [place] [facility]; [facility] Work Phone: 03-01-2021 07:53-0400 Body Temperature 97.3 [degF] Huber De Los Santos LPN [facility]; [facility] [...] 160.02 cm Huber De Los Santos LPN [facility]; [facility] [...] BSA (Body Surface Area) 2.12 m2 Zahra Heda RN [facility]; [facility] [...] Mass Index) 43.4 kg/m2 Shannon Cordova LPN [facility] [place] Internal [facility]; [facility] [...] Mass Index) 42.2 kg/m2 Shannon Cordova LPN [facility] [place] Internal [facility]; [facility] [...] 13:52-0500 Pulse (Heart Rate) 89 /min Zahra Head RN [facility]; [...] (Body Mass Index) 43.83 kg/m2 Shannon Cordova VARIETY PERFORMER Comprehen sive Internal Medicine; [facility] Work Phone: 08-25-2015 09:50-0400 Body Temperature 97.8 [degF] Shannon Mathurrb VARIETY PERFORMER [facility]; [facility] Work Phone: 08-25-2015 09:50-0400 Body weight 112.24 kg Shannon Cordova VARIETY PERFORMER [facility]; [facility] Work Phone: 08-25-2015 09:50-0400 BP Diastolic 90 mm[Hg] Shannon Slarb VARIETY PERFORMER [facility]; [facility] Work Phone: Comment on above: Patient Position: Sitting; Cuff Location : Left Arm; Cuff Size: Standard 08-25-2015 09:50-0400 BP Systolic 170 mm[Hg] Shannon Mathurrb VARIETY PERFORMER [facility]; [facility] Work Phone: Comment on above: Patient Position: Sitting; Cuff Location : Left Arm; Cuff Size: Standard 08-25-2015 09:50-0400 BSA (Body Surface Area) 2.12 m2 Shannon Mathurrb VARIETY PERFORMER [facility]; [facility] Work Phone: 08-25-2015 09:50-0400 Height 160.02 cm Shannon Cordova VARIETY PERFORMER [facility]; [facility] Work Phone: 08-25-2015 09:50-0400 Pulse (Heart Rate) 87 /min Shannon Cordova VARIETY PERFORMER Comprehensiv e Internal Medicine; [facility] Work Phone: Comment on above: Pattern: Regular 08-25-2015 09:50-0400 Pulse Oximetry 96 % Domi Handley [facility]; [facility] Work Phone: Comment on above: Room air 08-25-2015 09:50-0400 Respiratory Rate 18 /min Shannon Cordova VARIETY PERFORMER [facility]; [facility] Work [...] Phone: 03-06-2014 09:35-0400 BP Diastolic 86 mm[Hg] Ying Richardson MARCUS [facility]; [...] 10:33-0500 Body weight 112.95 kg Soheila Moore [facility]; [facility] Work Phone: 12-03-2013 10:33-0500 BP Diastolic 82 mm[Hg] Soheila Moore [facility]; [facility] Work Phone: Comment on above: Patient Position: Sitting; Cuff Location : Left Arm; Cuff Size: Standard 12-03-2013 10:33-0500 BP Systolic 130 mm[Hg] Soheila Moore [facility]; [facility] Work Phone: Comment on above: Patient Position: Sitting; Cuff Location : Left Arm; Cuff Size: Standard 12-03-2013 10:33-0500 BSA (Body Surface Area) 2.12 m2 Soheila Moore [facility]; [facility] Work Phone: 12-03-2013 10:33-0500 Height 160.02 cm Soheila Moore [facility]; [facility] Work Phone: 12-03-2013 10:33-0500 Pulse (Heart Rate) 95 /min Soheila Moore [facility]; [facility] Work Phone: Comment on above: Pattern: Regular 12-03-2013 10:33-0500 Pulse Oximetry 98 % Domi Handley [facility]; [facility] Work Phone: Comment on above: Room air 12-03-2013 10:33-0500 Respiratory Rate 16 /min Soheila Moore [facility]; [facility] Work Phone: Comment on above: Pattern: Unlabored 12-03-2013 10:33-0500 SaO2% (BldA) [Mass fraction] 98 % Soheila Moore [facility]; [facility] Work [...] Pulse (Heart Rate) 84 /min Ying Richardson VARIETY PERFORMER [facility]; [facility] Work [...] Mass Index) 44.11 kg/m2 Audrey Birch RN [facility]; [facility] [...] Mass Index) 44.2 kg/m2 Audrey Birch RN [facility]; [facility] [...] 04-25-2012 [id number] Pulse (Heart Rate) 92 /min Audrey Birch RN [facility]; [facility] Work Phone: Comment on above: Pattern: Regular 04-25-2012 14:040400 Respiratory Rate 18 /min Audrey Birch RN [facility]; [facility] Work Phone: Comment on above: Pattern: Unlabored 04-12-2012 14:26-0400 BMI (Body Mass Index) 44.11 kg/m2 Kirti Berger RN [facility]; [facility] [...] Mass Index) 40.8 kg/m2 Audrey Birch RN [facility]; [facility] [...] Phone: 11-14-2010 14:57-0500 Height 161.29 cm KENNETH aPul LPN [facility]; [facility] [...] 10:40-0400 BP Diastolic 64 mm[Hg] KENNETH Paul VARIETY PERFORMER [facility]; [facility] Work Phone: Comment on above: Patient Position: Sitting; Cuff Location : Left Arm; Cuff Size: Large 06-27-2007 10:40-0400 BP Systolic 110 mm[Hg] KENNETH Paul VARIETY PERFORMER [facility]; [facility] Work [...] Pulse (Heart Rate) 72 /min KENNETH Paul VARIETY PERFORMER [facility]; [facility] Work [...] 14:24-0400 Body weight 0 kg KENNETH Paul VARIETY PERFORMER [facility]; [facility] Work [...] Mass Index) 46.21 kg/m2 Domi Tawanda Aguilera [facility] Internal Medicine; [facility] Work Phone: 10-03-2006 11:43-0500 Body Temperature 98.8 [degF] Domi Handley [facility]; [facility] Work Phone: Comment on above: Method: Undefined 10-03-2006 11:43-0500 Body weight 120.2 kg Domi Handley [facility]; [facility] Work Phone: 10-03-2006 11:43-0500 BP Diastolic 88 mm[Hg] Domi Handley [facility]; [facility] [...] Start: 09-21-2025 End: 09-21-2025 ambulatory Mary Cobb [employer]PARER [place] [place] Start: 09-10-2025 End: 09-10-2025 ambulatory Mary Cbob [employer] MATERIAL PREPARER Facility:[facility] Start: 09-07-2025 End: 09-07-2025 Emergency department patient visit Dr. Dylan Herrera DO -Emergency Department Work Phone: Start: 05-26-2025 Non-patient / Non-visit Dr. Nuvia EVERETT -[facility] Work Phone: Start: 05-26-2025 End: 05-26-2025 ambulatory Mary Cobb [employer] MATERIAL PREPARER-C -Pulmonary Services/Neurology Start: 05-26-2025 End: 05-26-2025 Patient encounter procedure Zahra Renner [employer] PREPARER-C -Pulmonary Services/Neurology Work Phone: Start: 05-26-2025 End: 05-26-2025 ambulatory Zahra Renner NP Facility:[facility] Start: 05-18-2025 Registered Referred Mary santillan [employer] MATERIAL PREPARER-C -Laboratory Specimen Work Phone: Start: 05-18-2025 ambulatory Mary Cobb NP Fa cility:[facility] Start: 05-14-2025 End: 05-14-2025 Patient encounter procedure Zahra Renner [employer] MATERIAL PREPARER-C -[facility] Work Phone: Start: 05-14-2025 End: 05-14-2025 ambulatory Mary Cobb [employer] MATERIAL PREPARER-C [facility] Work Phone: Start: 04-24-2025 End: 04-24-2025 ambulatory Mary Cobb [employer] MAT[employer] PREPARER-C [facility] Work Phone: Start: 04-24-2025 End: 04-24-2025 Patient encounter procedure Mary Cobb [employer] MATERIAL PREPARER-C -Laboratory Work Phone: Start: 04-24-2025 End: 04-24-2025 ambulatory Mary Cobb NP Facility:[facility] Start: 04-06-2025 End: 04-06-2025 Emergency department patient visit Mary Cobb [employer] MATERIAL PREPARER-C -Emergency Department Work Phone: Start: 04-06-2025 Registered Referred Mary santillan [employer] MATERIAL PREPARER-C -Laboratory, Specimen Work Phone: Start: 04-06-2025 ambulatory Mary Cobb NP Fa cility:[facility] Start: 12-01-2024 End: 12-01-2024 ambulatory Mary Cobb NP Facility:[facility] Start: 11-05-2024 End: 11-05-2024 ambulatory Mary Cobb NP [place] [place] Start: 10-31-2024 End: 10-31-2024 ambulatory Mary Cobb NP Facility:[facility] Start: 01-26-2024 End: 03-02-2024 Emergency department patient visit [facility] Start: 10-15-2023 End: 10-15-2023 ambulatory [facility] Work Phone: Start: 10-15-2023 End: 10-15-2023 Patient encounter procedure [facility]-Laboratory, [facility] Start: 07-14-2023 Documentation procedure Mammog nick Coordinator [facility] Start: 07-14-2023 Letter encounter Mammography Coordinator [facility] Department Start: 07-13-2023 End: 07-13-2023 ambulatory MARQUES PAUL Facility:[facility] Start: 07-13-2023 End: 07-13-2023 Subsequent hospital visit by physician [facility] Comment on above: Encounter for screen ing mammogram for malignant neoplasm of breast [Z12.31] Start: 04-02-2023 Telephone encounter Marques Paul MD Work Phone: OB/Gynecology Comment on above: Results Start: 03-29-2023 End: 03-30-2023 ambulatory DOMIRICHARD HANDLEY Facility:[facility] Start: 03-29-2023 End: 03-29-2023 Patient encounter procedure [...] Start: 01-25-2023 End: 01-25-2023 ambulatory MARQUES PAUL Facility:[facility] Start: 01-25-2023 End: 01-25-2023 Subsequent hospital visit by physician [facility] Work Phone: Radiology Comment on above: PMB (postmenopausal bleeding) [N95.0] Start: 01-12-2023 Telephone encounter Marques Paul MD Work Phone: OB/Gynecology Comment on above: Patient Update Start: 01-10-2023 End: 01-10-2023 ambulatory [facility] Work Phone: Start: 01-10-2023 End: 01-10-2023 Patient encounter procedure [facility] Start: 11-01-2022 ambulatory Domi Handley DO Comp rehensive Internal Med Start: 11-01-2022 End: 11-02-2022 Annotation/Addendum Domi Tawanda DO Work Phone: [facility] Start: 11-01-2022 Review Domi Dougherty n DO Work Phone: [facility] Start: 10-27-2022 End: 10-27-2022 Phone Encounter Domi Handley DO Work Phone: [facility] Start: 06-19-[address] [facility]-Physical Therapy Start: 06-08-2022 End: 06-25-2022 Discharged Rec[facility]ring [facility]-Nutritional Services Start: 03-15-2021 End: 03-15-2021 Office outpatient [...] 03-28-2017 End: 03-28-2017 Phone Encounter Domi Chandler [facility] Start: 03-27-2017 End: 03-27-2017 Office outpatient visit 15 minutes Domi Handley [facility] Start: 12-28-2016 End: 12-28-2016 Office outpatient visit 10 minutes Domi Handley [facility] Internal [facility] Start: 10-26-2016 End: 10-26-2016 Office outpatient visit 10 minutes Domi Chandler [facility] Start: 10-05-2016 End: 10-05-2016 Office outpatient visit 25 minutes Domi Chandler Internal [facility] Start: 09-05-2016 End: 09-05-2016 Office outpatient visit 40 minutes Domi Handley [facility] Start: 04-05-2016 End: 04-05-2016 Office outpatient visit 25 minutes Domi Handley [facility] Start: 01-19-2016 End: 01-19-2016 Office outpatient visit 25 minutes Domi Handley [facility] Medicine Start: 12-06-2015 End: 12-06-2015 Office outpatient visit 15 minutes Domi Handley [facility] Start: 11-29-2015 End: 11-29-2015 Office outpatient visit 25 minutes Domi Handley [facility] Internal [facility] Start: 11-22-2015 End: 11-22-2015 Postop follow up visit related to original px Domi Chandler [facility] Start: 11-04-2015 End: 11-04-2015 Office outpatient visit 15 minutes Domi Handley [facility] Start: 10-26-2015 End: 10-26-2015 Refill Request Domi Chandler [facility] Start: 10-20-2015 End: 10-20-2015 Office outpatient visit 25 minutes Domi Handley [facility] Start: 08-25-2015 End: 08-25-2015 Patient encounter procedure Domi Chandler [facility] Start: 01-28-2015 End: 01-28-2015 Office outpatient visit 15 minutes Domi Handley [facility] Start: 03-06-2014 End: 03-06-2014 Office outpatient visit 25 minutes Domi Handley [facility] Start: 01-09-2014 End: 01-09-2014 Patient encounter procedure Domi Handley [facility] Start: 12-03-2013 End: 12-03-2013 Patient encounter procedure Domi Chandler [facility] Start: 04-30-2013 End: 04-30-2013 Office outpatient visit 15 minutes Domi Handley [facility] Medicine Start: 04-02-2013 End: 04-02-2013 Office outpatient visit 25 minutes Domi Tawanda [facility] Internal Medicine Start: 06-06-2012 End: 06-10-2012 Patient encounter procedure Domi Handley [facility] Medicine Start: 05-24-2012 End: 05-24-2012 Patient encounter procedure Domi Handley [facility] Medicine Start: 04-25-2012 End: 04-25-2012 Patient encounter procedure Domi Handley [facility] Start: 04-15-2012 End: 04-15-2012 Lab Order Domierick Handley [facility] Start: 04-12-2012 End: 04-12-2012 Office outpatient visit 25 minutes Domi Handley [facility] Start: 02-05-2012 End: 02-05-2012 Office outpatient visit 15 minutes Domi Handley [facility] Start: 01-17-2012 End: 01-17-2012 Office outpatient visit 25 minutes Domi Handley [facility] Start: 11-08-2011 End: 11-08-2011 Medical examinations/reports status Domi Handley DO Work Phone: [facility] Start: 11-08-2011 End: 11-08-2011 Patient encounter procedure Domi Handley [facility] Start: 11-08-2011 End: 11-08-2011 Phone Encounter Domi Handley [facility] Start: 10-27-2011 End: 10-27-2011 Patient encounter procedure Domi Handley [facility] Start: 03-21-2011 End: 03-21-2011 Annotation/Addendum Domi Handley [facility] Start: 03-20-2011 End: 03-20-2011 Patient encounter procedure Domi Handley [facility] Start: 11-14-2010 End: 11-14-2010 Patient encounter procedure Domi Handley [facility] Start: 11-03-2010 End: 11-03-2010 Patient encounter procedure Domi Handley [facility] Start: 10-28-2010 End: 10-28-2010 Patient encounter procedure Domi Handley [facility] Start: 06-27-2007 End: 06-27-2007 Office outpatient visit 15 minutes [facility] Start: 02-11-2007 End: 02-12-2007 Patient encounter procedure Domierick Handley [facility] Start: 02-06-2007 End: 02-06-2007 Historical Summary Domi Handley [facility] Start: 10-03-2006 End: 10-03-2006 Office outpatient visit 25 minutes Domi Handley [facility] Medical examinations/reports status Huber De Los Santos MARCUS [facility]; [facility] Work Phone: Procedures Date Procedure Procedure Detail Performing Clinician Start: 09-10-2025 Procedure Mary SOLORIO Comment on above: Test Ordered: [id number] Magnesium, RBCTest( s) 920644-Awbmbkiel, RBCwas developed and its performance characteristicsdetermined by [facility]. It has not been cleared or approvedby the Food and Drug Administration.Magnesium, RBC 5.1 mg/dL Reference Range: 3.7-7.0Performed at: [address] [id number] Director: Juan Pablo Grady MD, Phone: [phone] at: [address] [id number] Director: Randy Nova PhD, Phone: [phone] Test Ordered: [id number] Amino Acid Profile, Qn, PlasmaTest(s) 551078-Rhghnuq; 487867-Cyutnnxvb; 531888-Yxwstgbfpmlplf; 230286-Cwywyknrq; 000331-Ckrjzg; 310549-Xhnxajzyoq; 367712-Kyawypgab; 245460-Vnxxwwoaj; 878381-Hnxagkvak; 595150-Jirgm-zvpunwjjpufs; 183583-Wdinbbj;911461-Srktbnp; 507938-Rlsbagt; 900185-Jxzpxvmtwn; 828627-Tvfoc-otmrivijhjgko; 133208-Sqnqdc; 036811-Hewylgy; 986541-Uygtlbrhcd; 588612-Ezbzbztsflnpgq; 533311-Pntbdoyhwlxpw;876191-Itukxzofbttswx; 807835-Nmfykgbaio; 602515-Hbhanqu;577892-Pwqnuwtu; 183286-Lncjbpcdsmvmm; 452829-Yibfczanmfpyhaygi; 132771-Dmdv-nynkqpp; 680101-Hbsk-vddckdkcnhvxxpaa; 557528-Ksxbevoaryx; 921765-Qpbxn-updlphxmdqcba; 216939-Qkgdorbklx; 321478-Koynvejixpwcn; 694886-Bcjskqufk; 541357-Qumdhg; 712740-Kzfcvpiof; 717490-Zekuumdbuki developed and its performance characteristicsdetermined by [employer]. It has not been cleared or approvedby [...] errorsof metabolism, please contact our Biochemical Geneticistsat [phone] [facility]([phone]), [employer],[place], [place].Methodology Comment Reference Range: .Amino acid concentrations were obtained by LC-MS/MSanalysis.Performed at: [address] [id number] Director: Juan Pablo Grady MD, Phone: [phone] at: [facility] [address] [place], [place] [id number] Director: [facility], Phone: [phone] at: [facility] [place], [place] [id number] Director: Randy Nova PhD, Phone: [phone] Start: 05-18-2025 Procedure Mary SOLORIO Comment on above: Test Ordered: [id number] Amino Acid Profile, Qn, PlasmaTest(s) 784965-Uhxbymc; 401886-Qacvpetbv; 564348-Ejzewfeqzxxvlo; 954035-Snrqmrngj; 716013-Sfozea; 304399-Hounymqyqq; 079685-Lrakjacyz; 245980-Yhzsbhiwn; 145009-Pkknmqssk; 983781-Bhtjo-nkhkbmvkajpb; 697422-Dvejvqo;097504-Qncjxhs; 771479-Pusabmx; 912922-Tjqcbdoljy; 270427-Ehevo-fizhqyskjxuoh; 378535-Gkgrkz; 220389-Kvztnht; 062223-Tytlrxhofs; 942142-Hqlvtdrwujesad; 243995-Ptpunoevfrcse;961307-Byukhiieacqrtg; 904437-Ilcqhiavzt; 972075-Ckjdfbm;346815-Aqnteicz; 456432-Tndfxefnuvrjb; 162967-Xlqhsxnledktfewuz; 526561-Qoai-wrtirkq; 734643-Prik-ybeoggiwjhnbbncz; 930280-Zcsialugwke; 925902-Lisij-wzkwbfdejjorb; 290561-Lshojzbrwd; 705091-Uavxccoxdbieh; 255649-Mazwuzyjl; 632973-Hqgujk; 907828-Ckmwaujfh; 117747-Ravzolsecpr developed and its performance characteristicsdetermined by [employer]. It has not been cleared or approvedby [...] Reference Range: .Technical Component analysis performed at [facility] Component interpretation performed by:Laura Bonilla, PhD, FACMGDirector, [facility]eticsFal[facility] Hospital RTPLCTG, [address] [facility] [address]Ek discuss these results or other testing for inborn errorsof metabolism, please contact our Biochemical Geneticistsat [phone]), [facility] [employer],[place].Methodology Comment Reference Range: .Amino acid concentrations were obtained by LC-MS/MSanalysis.Performed at: [address] [id number] Director: Juan Pablo Grady MD, Phone: [phone] at: [facility] [address] [place], [place] [id number] Director: [facility], Phone: [phone] at: [address] [id number] Director: Randy Nova PhD, Phone: [phone] Start: 04-06-2025 CT angiography of chest with contrast Mary Cobb BRUSH MATERIAL PREPARER-C Start: 04-06-2025 Estimated creatinine clearance Mary roger [employer]USH MATERIAL PREPARER-C Start: 04-06-2025 X-ray of chest, PA and lateral views Mary Cobb BRUSH MATERIAL PREPARER-C Start: 04-06-2025 D-dimer assay, quantitative Mary smith BRUSH MATERIAL PREPARER-C Comment on above: D-Dimer ELEVATED (>0.49): Additional phil dies and clinicalassessments are indicated to conclude diagnosis of:Deep Vein Thrombosis (DVT) or Pulmonary Embolism (PE) Start: 07-13-2023 End: 07-13-2023 Mammography Marques Paul MD Work Phone: Start: 01-25-2023 Us pelvic nonobstetric image dcmtn limited/f/u Marques Paul MD Work Phone: Start: 03-01-2021 End: 03-07-2021 Abdomen/Pelvis WITH Contrast Comments: See Note; NOTES: [facility] Imaging Services [address] [place] [address] Abdomen/Pelvis WITH Contrast MR#: [id number] Acct: [id number] Name: VICKIE BARLOW Rep #: [id number] : 1965 F 55 From: Jose J Longoria MD PCP: Domi Handley DO Status: REG CLI Study: Abdomen/Pelvis WITH Contrast Date of Exam: 05/16 Exam# [id number] Ordering Dr: Arleth Peralta NP BRUSH MATERIAL PREPARER-C STUDY: CT ABDOMEN AND PELVIS WITH CONTRAST [...] , CC: LYNDSEY Peralta; Domi Handley DO Marine Safety Officer: Signed Arleth Peralta Work Phone: Start: 06-20-2018 End: 06-20-2018 Orthopedic Visit Report Comments: See Note; NOTES: [facility] Orthopaedics AND Sports Medicine [address] [place] [address] OFFICE VISIT Date of Service: 06/20/18 MR#: [id number] Acct: [id number] Name: MARILIN BARLOW Rep #: [id number] : 1965 Provider: Rubi Ocampo DO Age/Sex: 53/F [place] [facility] [place] [place] Status: Signed Intake Intake Visit Reasons: LEFT KNEE Is patient in pain?: Yes Pain scale (1-10): 2 Allergies celecoxib [From Celebrex] Allergy (Verified 06/20/18 09:43) Shortness of breath levofloxacin [From Levaquin] Adverse Reaction (Verified 06/20/18 09:43) Pain in joints Medications Sertraline HCl [Zoloft] 50 mg PO DAILY 10/31/16 [History Confirmed 03/16/18] [facility] Social History Smoking Status: Never smoker HPI [...] Joint Only (Routine) Comments: See Note; NOTES: [facility] Imaging Services [address] [place] [address] Lower Ext Joint Only (Routine) MR#: [id number] Acct: [id number] Name: MARILIN BARLOW Rep #: [id number] : 1965 F 53 From: Dg Root MD PCP: Domi Handley DO Status: REG CLI Study: Lower Ext Joint Only (Routine) Date of Exam: 06/17/18 Exam# [id number] Ordering Dr: Rubi Ocampo DO STUDY: MRI [...] Normal Hoffa's fat pad. There is a qitpi-ik-tmnggeto sized joint effusion. There is a popliteal [...] CC: Rubi Ocampo DO; Domi Handley DO Marine Safety Officer: Signed Domi Handley Start: 06-13-2018 End: 06-13-2018 Orthopedic Visit Report Comments: See Note; NOTES: [facility] Orthopaedics AND Sports Medicine [address] [place] [address] OFFICE VISIT Date of Service: 06/06/18 MR#: [id number] Acct: [id number] Name: MARILIN BARLOW Rep #: [id number] : 1965 Provider: Rubi Ocampo DO Age/Sex: 53/F [place] [facility] [place] Status: Signed Intake Intake Visit Reasons: LEFT [...] type Tear current or old: current 06/13/18 6687 <Electronically signed by Rubi Ocampo DO> Date Rubi Ocampo DO 06/07/18 1109<Electronically signed by Gerson LUJAN> Cosigner Signature: Date (if applicable) Gerson Delarosa CC: Domi Handley Start: 05-21-2018 End: 05-21-2018 Venous Duplex Lower Extremity Comments: See Note; NOTES: [facility] Cardiovascular Services [address] [place] [address] Venous Duplex US, Unilateral 05/21/18 1445 MR#: [id number] Acct: [id number] Name: MARILIN BARLOW Rep #: [id number] : 1965 52 From: Colby Trevino MD Attending Dr: Zahra Renner NP-C [...] Dictated: 05/21/18 1445 Date Transcribed: 05/21/18 153 Marine Safety Officer: Signed Domi Handley Start: 05-21-2018 End: 05-22-2018 Knee 4 or More Views Comments: See Note; NOTES: [facility] Imaging Services [address] [place], [place] [address] [address] Knee 4 or More Views MR#: [id number] Acct: [id number] Name: MARILIN BARLOW Rep #: [id number] : 1965 F 52 From: Josh Guan DO PCP: Domi Handley DO Status: REG CLI Study: Knee 4 or More Views Date of Exam: 05/21/18 Exam# [id number] Ordering Dr: Zahra Renner STUDY: X-RAY - [...] , CC: LYNDSEY Renner; Domi Handley DO Marine Safety Officer: Signed Zahra Renner Start: 05-21-2018 End: 05-22-2018 L/S Spine Min 4 Views Comments: See Note; NOTES: [facility] Imaging Services [address] [place] [address] L/S Spine Min 4 Views MR#: [id number] Acct: [id number] Name: MARILIN BARLOW Rep #: [id number] : 1965 F 52 From: Josh Guan DO PCP: Domi Handley DO Status: REG CLI Study: L/S Spine Min 4 Views Date of Exam: 05/21/18 Exam# [id number] Ordering Dr: Zahra Renner STUDY: X-RAY - LUMBAR SPINE REASON FOR [...] , CC: LYNDSEY Renner; Domi Handley DO Marine Safety Officer: Signed Zahra Renner Start: 03-16-2018 End: 03-16-2018 Emergency Department Summary Comments: See Note; NOTES: [facility] Medical Records Department [address] [place] [address] Emergency Department Summary 03/16/18 1055 MR#: [id number] Acct: [id number] Name: MARILIN BARLOW Rep #: [id number] : 1965 52 From: Winston Roper MD [...] phalangeal fracture This note was generated with mPortal dictation software. It may contain incorrect words, [...] your Primary Care Provider. Call [facility] ([phone]) or report to the closest Emergency Room. Call 911 if necessary. 03/16/18 1239 <Electronically signed by Winston Roper MD> Date Winston Roper MD Cosigner Signature (If Indicated): Date CC: Domi Colmenares Start: 03-16-2018 End: 03-16-2018 Foot min 3 Views Comments: See Note; NOTES: [facility] Imaging Services [address] [place] [address] Foot min 3 Views MR#: [id number] Acct: [id number] Name: MARILIN BARLOW Shay Rep #: [id number] : 1965 F 52 From: Doug Seals MD PCP: Domi Handley DO Status: REG ER Study: Foot min 3 Views Date of Exam: 03/16/18 Exam# [id number] Ordering Dr: Winston Roper MD STUDY: X-RAY [...] CC: Domi Handley DO; Winston Roper MD Marine Safety Officer: Signed Domi Handley Start: 04-23-2017 End: 04-23-2017 Emergency Department Summary Comments: See Note; NOTES: [facility] Medical Records Department [address] [place] [address] Emergency Department Summary MR#: [id number] Acct: [id number] Name: KD BARLOWJANICE Day Rep #: [id number] : 1965 51 From: Leighton Mckenna MD PCP: Domi Handley DO Status: [facility] DATE OF SERVICE: 04/22/2017 HISTORY OF [...] and colonoscopy. PRIMARY CARE PHYSICIAN: Dr. Handley. BUNCHER HAND: Dr. Agarwal. PHYSICAL EXAMINATION: VITAL SIGNS: Remarkable [...] C: Domi Handley DO T: NTS JOB: [id number] 04/23/17 0646 <Electronically signed by Leighton Mckenna MD> Date Leighton Mckenna MD Cosigner Signature (If Indicated): Date CC: Domi Handley DO Date Dictated: 04/22/171525 Date Transcribed: 04/22/171525 Marine Safety Officer: Signed Domi Handley Start: 04-22-2017 End: 04-22-2017 Discharge Instruction Comments: See Note; NOTES: [facility] Medical Records Department [address] [place] [address] Discharge Instruction 04/22/17 1524 MR#: [id number] Acct: [id number] Name: MARILIN BARLOW Rep #: [id number] : 1965 51 From: Leighton Mckenna MD [...] your Primary Care Provider. Call [facility] ([phone]) or report to the closest Emergency Room. Call 911 if necessary. 04/22/17 1527 <Electronically signed by Leighton Mckenna MD> Date Leighton Mckenna MD Cosigner Signature (If Indicated): Date CC: Domi Colmenares Start: 04-22-2017 End: 04-22-2017 Abdomen/Pelvis WITH Contrast Comments: See Note; NOTES: [facility] Imaging Services [address] [place] [address] Griseldana 4d Abdomen/Pelvis WITH Contrast MR#: [id number] Acct: [id number] Name: MARILIN BARLOW Rep #: [id number] : 1965 F 51 From: Aquilino Mckeon DO PCP: Domi Handley DO Status: REG ER Study: Abdomen/Pelvis WITH Contrast Date of Exam: 04/22/17 Exam# [id number] Ordering Dr: Leighton Mckenna MD STUDY: CT [...] CC: Domi Handley DO; Leighton Mckenna MD Marine Safety Officer: Signed Domi Tawanda Start: 03-29-2017 End: 03-29-2017 Venous Duplex Lower Extremity Comments: See Note; NOTES: [facility] Cardiovascular Services [address] [place] [address] Venous Duplex US, Unilateral 03/27/17 1510 MR#: [id number] Acct: [id number] Name: MARILIN BARLOW Rep #: [id number] : 1965 51 From: Colby Trevino MD Attending Dr: Zahra Renner BRUSH MATERIAL PREPARER-C Status: REG CLI Ordering Dr: Zahra Renner BRUSH MATERIAL PREPARER-C Date: 03/27/17 Location: CT Sex: F C [...] and/or faxed augmentation. to Zahra Renner @ [phone]. POP V is compressible, spontaneous, phasic, competent [...] Date Dictated: 03/27/17 1510 Date Transcribed: 03/29/172215 Marine Safety Officer: Signed Zahra Renner Start: 03-27-2017 End: 03-27-2017 CTA Chest W/WO Contrast Comments: See Note; NOTES: [facility] Imaging Services [address] [place] [address] Verdana 4d CTA Chest W/WO Contrast MR#: [id number] Acct: [id number] Name: MARILIN BARLOW Rep #: [id number] : 1965 F 51 From: Clover Rojas MD PCP: Domi Handley DO Status: REG CLI Study: CTA Chest W/WO Contrast Date of Exam: 03/27/17 Exam# [id number] Ordering Dr: Zahra Renner STUDY: CTA CHEST [...] , CC: Zahra Renner; Domi Handley DO Marine Safety Officer: Signed Zahra Renner Start: 11-14-2016 End: 11-14-2016 Discharge Instruction Comments: See Note; NOTES: [facility] Medical Records Department [address] [place] [address] Discharge Instruction 10/31/166 MR#: [id number] Acct: [id number] Name: MARILIN BARLOW Rep #: [id number] : 1965 51 From: Wally Sosa MD [...] problems, contact your Primary Care Provider. Call [facility] ([phone]) or report to the closest Emergency Room. Call 911 if necessary. 11/14/16 2211 <Electronically signed by Wally Sosa MD> Date Wally Sosa MD Cosigner Signature (If Indicated): Date CC: Domi Colmenares Start: 11-14-2016 End: 11-14-2016 Emergency Department Summary Comments: See Note; NOTES: [facility] Medical Records Department [address] [place] [address] Emergency Department Summary MR#: [id number] Acct: [id number] Name: MARILIN BARLOW Rep #: [id number] : 1965 51 From: Wally Sosa MD PCP: Domi Handley DO Status: [facility] DATE OF SERVICE: 10/31/2016 CHIEF COMPLAINT: [...] cellulitis. Wally Sosa MD T: NTS JOB: [id number] 11/14/16 2305 <Electronically signed by Wally Sosa MD> Date Wally Sosa MD Cosigner Signature (If Indicated): Date CC: Domi Handley DO Date Dictated: 10/31/162228 Date Transcribed: 10/31/162228 Marine Safety Officer: Signed Domi Handley Start: 09-07-2016 End: 09-07-2016 Abdomen Complete Comments: See Note; NOTES: [facility] Imaging Services [address] [place] [address] Verdana 4d Abdomen Complete MR#: [id number] Acct: [id number] Name: MARILIN BARLOW Rep #: [id number] : 1965 F 51 From: Minh Schmid DO PCP: Domi Handley DO Status: REG CLI Study: Abdomen Complete Date of Exam: 09/07/16 Exam# [id number] Ordering Dr: Domi Handley DO STUDY: ABDOMINAL [...] Minh Schmid DO at 16:04 EDT Tel [phone], Service support [phone], CC: Domi Handley DO Marine Safety Officer: Signed Domi Handley Work Phone: Start: 05-18-2016 Mammography Marques Paul MD Work Phone: Start: 02-23-2016 Colonoscopy Marques Paul MD Work Phone: Start: 12-08-2015 End: 12-08-2015 Operative Report Comments: See Note; NOTES: [facility] Medical Records Department [address] [place] [address] Operative Report MR#: [id number] Acct: [id number] Name: MARILIN BARLOW Rep #: [id number] : 1965 50 From: Mansoor Pino MD PCP: Domi Handley DO Status: [facility] DATE OF SERVICE: 12/03/2015 DATE OF SERVICE: [...] condition. Mansoor Pino MD T: NTS JOB: [id number] 12/08/15 1130 <Electronically signed by Mansoor Pino MD> Date Mansoor Pino MD Cosigner Signature (If Indicated): Date CC: Mansoor Pino MD; Domi Handley DO Date Dictated: 12/03/15828 Date Transcribed: 12/03/15828 Marine Safety Officer: Signed Domi Handley Start: 12-06-2015 End: 12-06-2015 Abd Inc Decub and/or Erect Comments: See Note; NOTES: [facility] Imaging Services [address] [place] [address] Verdana 4d [employer] Decub and/or Erect MR#: [id number] Acct: [id number] Name: MARILIN BARLOW Rep #: [id number] : 1965 F 50 From: Nicola Flores MD PCP: Domi Handley DO Status: REG CLI Study: [employer] Decub and/or Erect Date of Exam: 12/06/15 Exam# [id number] Ordering Dr: Domi Handley DO STUDY: X-RAY [...] Nicola Flores MD at 12:37 EST Tel [phone], Service support [phone], RAD/[employer] Decub and/or Erect IMPRESSION: No acute abnormality is seen. Electronically Signed: Nicola Flores MD at 12:37 EST Tel [phone], Service support [phone], CC: Domi Handley DO Marine Safety Officer: Signed Domi Handley Work Phone: Start: 12-03-2015 End: 12-03-2015 Discharge Instruction Comments: See Note; NOTES: [facility] Medical Records Department [address] [place] [address] Instructions for Home/Discharge Instructions 12/03/15 0826 MR#: [id number] Acct: [id number] Name: MARILIN BARLOW Rep #: [id number] : 1965 50 From: Mansoor Pino MD [...] pain, call your doctor (or the doctor plc controls engineer), even at night. -[facility]. You should [...] your doctor, call the answering service and [facility] , and the power plant operators supervisor can contact the on-call doctor through a [...] Emergency Department Summary Comments: See Note; NOTES: [facility] Medical Records Department [address] [place] [address] Emergency Department Summary MR#: [id number] Acct: [id number] Name: MARILIN BARLOW Rep #: [id number] : 1965 50 From: Chanelle Knutson MD PCP: Domi Handley DO Status: [facility] DATE OF SERVICE: 11/21/2015 CHIEF COMPLAINT: [...] diverticulitis. Chanelle Knutson MD T: NTS JOB: [id number] 11/23/15 0046 <Electronically signed by Chanelle Knutson MD> Date Chanelle Knutson MD Cosigner Signature (If Indicated): Date CC: Domi Handley DO Date Dictated: 11/21/151555 Date Transcribed: 11/21/151555 Marine Safety Officer: Signed Domi Handley Start: 11-21-2015 End: 11-21-2015 Discharge Instruction Comments: See Note; NOTES: [facility] Medical Records Department [address] [place] [address] Discharge Instruction 11/21/151553 MR#: [id number] Acct: [id number] Name: MARILIN BARLOW Rep #: [id number] : 1965 50 From: Chanelle Knutson MD [...] problems, contact your doctor. Call [facility] ([phone]) or report to the closest Emergency Room. Call 911 if necessary. 11/21/151555 <Electronically signed by Chanelle Knutson MD> Date Chanelle Knutson MD Cosigner Signature (If Indicated): Date CC: Domi Colmenares Start: 11-21-2015 End: 11-21-2015 Abdomen/Pelvis WITH Contrast Comments: See Note; NOTES: [facility] Imaging Services [address] [place] [address] Verdana 4d Abdomen/Pelvis WITH Contrast MR#: [id number] Acct: [id number] Name: MARILIN BARLOW Rep #: [id number] : 1965 F 50 From: Leidy Aleman MD PCP: Domi Handley DO Status: REG ER Study: Abdomen/Pelvis WITH Contrast Date of Exam: 11/21/15 Exam# [id number] Ordering Dr: Chanelle Knutson MD STUDY: CT [...] at 15:39 EST Tel , Service support [phone], N.B. : The above information has been verbally conveyed by Leidy Aleman MD to Dr Chanelle Knutson, Referring Physician, on 11/21/2015 15:48:52 (ET). CC: Chanelle Knutson MD; Domi Handley DO Marine Safety Officer: Signed Domi Handley Start: 08-26-2015 End: 08-26-2015 Emergency Department Summary Comments: See Note; NOTES: [facility] Medical Records Department [address] [place] [address] Emergency Department Summary MR#: [id number] Acct: [id number] Name: MARILIN BARLOW Rep #: [id number] : 1965 50 From: Anita Barrera DO PCP: Domi Handley DO Status: [facility] DATE OF SERVICE: 08/25/2015 CHIEF COMPLAINT: [...] p.m. Anita Barrera DO T: CHER JOB: [id number] 08/26/152326 <Electronically signed by Anita Barrera DO> Date Anita Barrera DO 08/26/152326 <Electronically signed by Anita Barrera DO> Cosigner Signature (If Indicated): Date Anita Barrera DO CC: Domi Handley DO Date Dictated: 08/25/151105 Date Transcribed: 08/25/151105 Marine Safety Officer: Signed Domi Handley Start: 08-25-2015 End: 08-25-2015 Discharge Instruction Comments: See Note; NOTES: [facility] Medical Records Department [address] [place] [address] Discharge Instruction 08/25/15 110 MR#: [id number] Acct: [id number] Name: MARILIN BARLOW Rep #: [id number] : 1965 50 From: Anita Barrera DO [...] problems, contact your doctor. Call [facility] ([phone]) or report to the closest Emergency Room. Call 911 if necessary. 08/25/15 1104 <Electronically signed by Anita Barrera DO> Date Anita Barrera DO Cosigner Signature (If Indicated): Date CC: Domi Colmenares Start: 01-30-2015 End: 01-30-2015 Lower Ext Joint Only (Routine) Comments: See Note; NOTES: [facility] Imaging Services [address] [place] [address] MRI Report MR#: [id number] Acct: [id number] Name: MARILIN BARLOW Rep #: [id number] : 1965 F 49 From: Doug Seals MD PCP: Aundrea Hurt MD Status: REG CLI Study: Lower Ext Joint Only (Routine) Date of Exam: 01/30/15 Exam# [id number] Ordering Dr: Rubi Ocampo DO STUDY: MRI [...] at 10:44 EST Tel , Service support [phone], CC: Rubi Ocampo DO; Aundrea Hurt MD Marine Safety Officer: Signed Domi Handley Start: 01-27-2015 End: 01-27-2015 Emergency Department Summary Comments: See Note; NOTES: [facility] Medical Records Department [address] [place] [address] Emergency Department Summary MR#: [id number] Acct: [id number] Name: MARILIN BARLOW Rep #: [id number] : 1965 49 From: Waldo Arevalo MD [...] being down for a few days in [place]. She knows the knee was hurting even [...] C: Aundrea Hurt MD T: NTS JOB: [id number] 01/27/15 1540 <Electronically signed by Waldo Arevalo MD> Date Waldo Arevalo MD CC: Aundrea Hurt MD Date Dictated: 01/24/1514 Date Transcribed: 01/24/1514 Marine Safety Officer: Signed Domi Handley Start: 01-26-2015 End: 01-26-2015 12 lead ECG Comments: See Note; NOTES: [facility] Cardiovascular Services [address] [place] [address] 12 Lead EKG 01/23/151950 MR#: [id number] Acct: [id number] Name: MARILIN BARLOW Rep #: [id number] : 1965 49 From: Stalin Ayers MD [...] ECG Confirmed by STALIN AYERS MD ([id number]), news assignment editor VINH ROJAS ([id number]) on 01/26/2015 3: 09:11 PM Referred By: JOHN Confirmed By:STALIN AYERS MD 01/26/15 1509 Date Stalin Ayers MD CC: Aundrea Hurt MD Date Dictated: 01/23/151950 Date Transcribed: 01/23/151950 Marine Safety Officer: Signed Domi Handley Start: 01-23-2015 End: 01-25-2015 Discharge Instruction Comments: See Note; NOTES: [facility] Medical Records Department [address] [place] [address] Discharge Instruction 01/23/154 MR#: [id number] Acct: [id number] Name: MARILIN BARLOW Rep #: [id number] : 1965 49 From: Waldo Arevalo MD [...] Knee 3 Views Comments: See Note; NOTES: [facility] Imaging Services [address] [place] [address] Radiology Report MR#: [id number] Acct: [id number] Name: MARILIN BARLOW Rep #: [id number] : 1965 F 49 From: Minh Schmid DO PCP: Aundrea Hurt MD Status: DEP ER Study: Knee 3 Views Date of Exam: 01/23/15 Exam# [id number] Ordering Dr: Waldo Arevalo MD STUDY: X-RAY [...] Minh Schmid DO at 9:54 EST Tel [phone], Service support [phone], CC: Aundrea Hurt MD; Waldo Arevlao MD Marine Safety Officer: Signed Domi Handley Start: 01-23-2015 End: 01-25-2015 CTA Chest W/WO Contrast Comments: See Note; NOTES: [facility] Imaging Services [address] [place] [address] CAT Scan Report MR#: [id number] Acct: [id number] Name: MARILIN BARLOW Rep #: [id number] : 1965 F 49 From: Mansoor Walker MD PCP: Aundrea Hurt MD Status: REG ER Study: CTA Chest W/WO Contrast Date of Exam: 01/23/15 Exam# [id number] Ordering Dr: Waldo Arevalo MD STUDY: CTA [...] MD at 20:53 EST , Service support [phone], CC: Aundrea Hurt MD; Waldo Arevalo MD Marine Safety Officer: Signed Domi Handley Start: 01-23-2015 End: 01-25-2015 Chest 1 View (Portable) Comments: See Note; NOTES: [facility] Imaging Services [address] [place] [address] Radiology Report MR#: [id number] Acct: [id number] Name: MARILIN BARLOW Rep #: [id number] : 1965 F 49 From: Mansoor Walker MD PCP: Aundrea Hurt MD Status: REG ER Study: Chest 1 View (Portable) Date of Exam: 01/23/15 Exam# [id number] Ordering Dr: Waldo Arevalo MD STUDY: X-RAY [...] MD at 21:38 EST , Service support [phone], CC: Aundrea Hurt MD; Waldo Arevalo MD Marine Safety Officer: Signed Domi Handley Start: 01-13-2014 End: 01-15-2014 Pelvic (Non ) Comments: See Note; NOTES: [facility] Imaging Services [address] [place] [address] Ultrasound Report MR#: [id number] Acct: [id number] Name: MARILIN BARLOW Rep #: [id number] : 1965 F 48 From: Nicola Flores MD PCP: Aundrea Hurt MD Status: REG CLI Study: Pelvic (Non ) Date of Exam: 01/13/14 Exam# [id number] Ordering Dr: Domi Handley DO STUDY: ULTRASOUND [...] M.D. at 15:05 EST , Service support [phone], CC: Aundrea Hurt MD; Domi Handley DO Marine Safety Officer: Signed Domi Handley Work Phone: 2 tears in lt knee Huber Agapito vis 2 tears in lt knee Huber Da vis 2 tears in lt knee Shannon Sl arb 2 tears in lt knee Huber Da vis VARIETY PERFORMER D&C Huber [place] D&C Huber [...] 2 H/O: section Huber De Los Santos VARIETY PERFORMER Comment on above: X 2 H/O: tubal ligation Huber Jenkins fenr H/O: tubal ligation Huber Jenkins fern H/O: tubal ligation Shannon S larb H/O: tubal ligation Huber Jenkins fern VARIETY PERFORMER superfical blood clot Huber De [place] superfical blood clot Huber [place] superfical blood clot Shannon Mathurrb superfical blood clot Huber De [place] VARIETY PERFORMER Plan of Treatment Date Care Activity Detail Author Start: 03-29-2028 HPV TESTING HPV TESTING [facility] Start: 03-29-2028 PAP TESTING PAP TESTING [facility] Start: 09-21-2025 End: 09-21-2025 Patient encounter procedure Atrial fibrillation -[facility] Work Phone: Start: 09-10-2025 Patient encounter procedure Registered Clinical -Laboratory Specimen Work Phone: Start: 09-07-2025 [facility] Start: 09-07-2025 Smpl repair scalp/neck/ax/genit/trunk 2.6-7.5cm RPR S/N/AX/GEN/TRNK2.6-7.5C M [facility] Start: 04-06-2025 [facility] Start: 04-06-2025 End: 04-06-2025 [facility] Start: 12-09-2024 HPV TESTING HPV TESTING [facility] Start: 12-09-2024 PAP TESTING PAP TESTING [facility] Start: 07-13-2024 Mammography [facility] Start: 07-27-2023 Influenza vaccination [facility] Start: 01-10-2023 Procedure [facility] Start: 11-26-2022 DEPRESSION ASSESSMENT DEPRESSION ASSESSMENT [facility] Start: 11-01-2022 Procedure Education Eprescribed prescriptions (G8553) [facility] Work Phone: Start: 07-27-2022 Influenza vaccination INFLUENZA (#1) [facility] Start: 03-15-2021 Procedure Education Eprescribed prescriptions (G8553) [...] 03-01-2021 TSH Qn TSH (THYROID STIMULATING HORMONE) (55113) [facility]; [facility] Work Phone: Start: 03-01-2021 Assay of gammaglobulin iga igd igg igm each Celiac Disease Comphrehensive Profile (00445) [facility]; [facility] Work Phone: Start: 03-01-2021 Antibody borrelia burgdorferi lyme disease Lyme Disease Antibody W/ Reflex (07850) [facility]; [facility] Work Phone: Start: 03-01-2021 Comprehensive metabolic panel Metabolic Panel, Comprehensive (10009) [facility]; [facility] Work Phone: Start: 03-01-2021 Blood count complete auto&auto difrntl wbc CBC, PLATELETS & AUT DIFF (80220) [facility]; [facility] Work Phone: Start: 03-01-2021 Amylase [Catalytic activity/Vol] AMYLASE (61616) [facility]; [facility] Work Phone: Start: 03-01-2021 Assay of lipase LIPASE (58984) [facility]; [facility] Work Phone: Start: 02-22-2021 Colonoscopy COLONOSCOPY [facility] Start: 02-22-2021 COLORECTAL CANCER SCREENING COLORECTAL CANCER SCREENING [facility] Start: 04-20-2020 Procedure Education Eprescribed prescriptions (G8553) [...] Medicine Work Phone: Start: 05-18-2017 Mammography MAMMOGRAM [facility] Start: 04-13-2017 Provider Instructions for Treatment Reviewed Diagnostic Tests [facility] Work Phone: Start: 03-27-2017 Comprehensive metabolic panel METABOLIC PANEL, COMPREHENSIVE (80917) [facility]; [facility] Work [...] 03-27-2017 Fibrin dgradj products d-dimer quantitative D-Dimer (46891) [facility]; [facility] Work [...] Start: 01-28-2015 Provider Instructions for Treatment Reviewed Vp Publisher Development Letter: dr jung and mri ordered [facility] Work Phone: Start: 2014 SHINGRIX VACCINE (1 of 2) SHINGRIX VACCINE (1 of 2) [facility] Start: 03-06-2014 Provider Instructions for Treatment Follow up if no improvement or if symptoms worsen [facility]; [facility] Work Phone: Start: 01-09-2014 Provider Instructions for Treatment Reviewed Vp Publisher Development Letter [facility] Work Phone: Start: 04-30-2013 Provider Instructions for Treatment Follow up if no improvement or if symptoms worsen [facility]; [facility] Work Phone: Start: 04-02-2013 Provider Instructions for Treatment Follow up in 2 weeks [facility]; [facility] Work Phone: Start: 04-15-2012 C-reactive protein C-Reactive Protein (34237) [facility]; [facility] Work Phone: Start: 04-15-2012 CRP [Mass/Vol] C-Reactive Protein (58843) [facility]; [facility] Work Phone: Start: 04-15-2012 25 hydroxy includes fractions if performed CALCIFEDIOL (18594) [facility]; [facility] Work Phone: Start: 04-12-2012 Comprehensive metabolic panel Metabolic Panel, Comprehensive (87959) [facility]; [facility] Work Phone: Start: 04-12-2012 Assay of thyroid stimulating hormone tsh TSH (16040) [facility]; [facility] Work Phone: Start: 04-12-2012 TSH Qn TSH (23986) [facility]; [facility] Work Phone: Start: 04-12-2012 Blood count manual cell count each CBC WITH MANUAL DIFF (28299) [facility]; [facility] Work Phone: Start: 04-12-2012 Provider Instructions for Treatment [facility]; [facility] Work Phone: Start: 02-05-2012 Provider Instructions for Treatment [facility]; [facility] Work Phone: Start: 01-17-2012 Provider Instructions for Treatment Follow up in 2 weeks [facility]; [facility] Work Phone: Start: 01-17-2012 Cyclic citrullinated peptide antibody CCP ANTIBODY (08270) [facility]; [facility] Work Phone: Start: 11-08-2011 Provider Instructions for Treatment [facility]; [facility] Work Phone: Start: 11-08-2011 Hpv, dna, amp probe HUMAN PAPILVS, NUCLEIC ACID AMPL PROBE (82856) [facility]; [facility] Work Phone: Start: 11-08-2011 Iadna neisseria gonorrhoeae amplified probe tq NEISSERIA (81663) (THIN PREP OBTAINED) [facility]; [facility] Work Phone: Start: 11-08-2011 Iadna chlamydia trachomatis amplified probe tq CHLAMYDIA (83412) (thin prep obtained) [facility]; [facility] Work Phone: Start: 11-08-2011 Iadna trichomonas vaginalis direct probe tq INFCT ANTGN TRICH VAGIN DIRECT PRB (34633) [facility]; [facility] Work Phone: Start: 11-08-2011 Iadna steff species direct probe tq STEFF, NUCLEIC ACID DIRECT PROBE (05778) [facility]; [facility] Work Phone: Start: 11-08-2011 Cytp cerv/vag auto thin layer prep mnl screen Thin prep Pap (24369) (no STD testing) [facility]; [facility] Work Phone: Start: 03-20-2011 Sedimentation rate rbc non-automated Sed Rate Erythrocyte (70723) [facility]; [facility] Work Phone: Start: 03-20-2011 Fibrin dgradj products d-dimer quantitative D-Dimer (51829) [facility]; [facility] Work Phone: Start: 11-14-2010 Comprehensive metabolic panel METABOLIC PANEL, COMPREHENSIVE (84087) [facility]; [facility] Work Phone: Start: 11-14-2010 Assay of thyroid stimulating hormone tsh TSH (64669) [facility]; [facility] Work Phone: Start: 11-14-2010 TSH Qn TSH (37040) [facility]; [facility] Work Phone: Start: 11-14-2010 Lipoprotein blood estiven numbers & subclasses LIPOPROTEIN, BLD, BY NMR (03411) [facility]; [facility] Work Phone: Start: 11-14-2010 Protein [Mass/Vol] LIPOPROTEIN, BLD, BY NMR (88819) [facility]; [facility] Work Phone: Start: 11-03-2010 Provider Instructions for Treatment [facility]; [facility] Work Phone: Start: 10-28-2010 Provider Instructions for Treatment FOLLOW UP - MAKE APPT AFTER DIAGNOSTIC TESTS [facility]; [facility] Work Phone: Start: 10-28-2010 Assay of thyroid stimulating hormone tsh TSH (06042) [facility]; [facility] Work Phone: Start: 10-28-2010 C-reactive protein C-REACTIVE PROTEIN (56176) [facility]; [facility] Work Phone: Start: 10-28-2010 CRP [Mass/Vol] C-REACTIVE PROTEIN (73513) [facility]; [facility] Work Phone: Start: 10-28-2010 Cyclic citrullinated peptide antibody CCP ANTIBODY (21614) [facility]; [facility] Work Phone: Start: 10-28-2010 Rheumatoid factor quantitative RHEUMATOID FACTOR-QUANT (34262) [facility]; [facility] Work Phone: Start: 10-28-2010 Sedimentation rate rbc non-automated SED RATE ERYTHROCYTE (20803) [facility]; [facility] Work Phone: Start: 10-28-2010 TSH Qn TSH (29777) [facility]; [facility] Work Phone: Start: 10-28-2010 Antinuclear antibodies wilfred WILFRED (ANTINUCLEAR ANTIBODY) (77954) [facility]; [facility] Work Phone: Start: 10-28-2010 Blood count manual cell count each CBC WITH MANUAL DIFF (61037) [facility]; [facility] Work Phone: Start: 10-28-2010 Comprehensive metabolic panel METABOLIC PANEL, COMPREHENSIVE (98583) [facility]; [facility] Work Phone: Start: 10-28-2010 Nuclear Ab IF (S) [Titer] WILFRED (ANTINUCLEAR ANTIBODY) (44565) [facility]; [facility] Work Phone: Start: 2009 COLOGUARD (FIT-DNA) COLOGUARD (FIT-DNA) [facility] Start: [address] COLONOGRAPHY [facility] Start: 2009 DIABETES SCREEN DIABETES SCREEN [facility] Start: 2009 Diabetes Screening Diabetes Screening [facility] Start: 2009 FECAL OCCULT BLOOD FECAL OCCULT BLOOD [facility] Start: 2009 Lipid 1996 panel - Serum or Plasma Lipid Screening [facility] Start: 2009 LIPID SCREEN LIPID SCREEN [facility] Start: 2009 SIGMOIDOSCOPY SIGMOIDOSCOPY [facility] Start: 1983 Urine microalbumin profile [facility] Start: 1982 ANNUAL PCP TEAM CHRONIC DISEASE VISIT ANNUAL PCP TEAM CHRONIC DISEASE VISIT [facility] Start: 1982 HEPATITIS C SCREENING HEPATITIS C SCREENING [facility] Start: 1982 HIV SCREENING HIV SCREENING [facility] Start: 1982 SPIROMETRY SPIROMETRY [facility] Start: 1970 PNEUMOCOCCAL (1 - PCV) PNEUMOCOCCAL (1 - PCV) [facility] Start: 1970 Pneumococcal vaccination Pneumococcal Vaccine (1 - PCV) [facility] Start: 1964 COVID-19 VACCINE (#1) COVID-19 VACCINE (#1) [facility] Start: 1964 HEPATITIS B (1 of 3 - 3-dose series) HEPATITIS B (1 of 3 - 3-dose series) [facility] 24 Hour ECG [facility] Dehydroepiandrostero ne sulfate (DHEA-S) [Mass/volume] in Serum or Plasma [facility] Endometrial bx w/wo endocervix bx w/o dilat spx ENDOMETRIAL BIOPSY Procedures Routine PMB (postmenopausal bleeding) Ordered: 01/12/2023 [facility] Work Phone: Comment on above: Ordered: 01/12/2023 Endometrial bx w/wo endocervix bx w/o dilat spx ENDOMETRIAL BIOPSY Procedures Routine PMB (postmenopausal bleeding) Thickened endometrium Ordered: 03/29/2023 [facility] Work Phone: Comment on above: Ordered: 03/29/2023 End: 04-27-2024 KAUSHIK SCREENING W JIMMY KAUSHIK SCREENING W JIMMY Radiology Routine Encounter for screening mammogram for malignant neoplasm of breast 1 Occurrences starting 03/29/2023 until 04/27/2024 [facility] Work Phone: Comment on above: 1 Occurrences starting 03/29/2023 until 04/27/2024 PAP TEST PAP TEST Lab Rou laxmi PMB (postmenopausal bleeding) Encounter for screening for malignant neoplasm of cervix Special screening examination for human papillomavirus (HPV) 03/29/2023 11:55 AM EDT [facility] Work Phone: Patient Education ED Asthma, Acu te (Adult) [facility] Work Phone: Patient referral [facility] Work Phone: SURGICAL PATHOLOGY SURGICAL PATH OLOGY Lab Routine PMB (postmenopausal bleeding) Thickened endometrium 03/29/2023 11:55 AM EDT [facility] Work Phone: End: 02-11-2024 Us pelvic nonobstetric image dcmtn limited/f/u US FEMALE PELVIS TRANSABD LTD Radiology Routine PMB (postmenopausal bleeding) 1 Occurrences starting 01/12/2023 until 02/11/2024 [facility] Work Phone: Comment on above: 1 Occurrences starting 01/12/2023 until 02/11/2024 End: 02-11-2024 Us transvaginal US FEMALE PELVIS TRANSVAG Radiology Routine PMB (postmenopausal bleeding) 1 Occurrences starting 01/12/2023 until 02/11/2024 [facility] Work Phone: Comment on above: 1 [...] Phone: [facility] Payers Date Payer Category Payer Private Health Insurance [id number] 2024 Self-pay [id number] 2024 Private Health Insurance [id number] 2020 Private Health Insurance [id number] 2017 Private Health Insurance [id number] 2017 Private Health Insurance [id number] 2015 Unknown [id number] 2006 Unknown [id number] 2004 Unknown [id number] 1965 Unknown [id number] 1965 Unknown [id number] Private Health Insurance [id number] Private Health Insurance [id number] Unknown Cigna PPO Unknown [facility] P[employer] [id number] Unknown [id number] Unknown [id number] Unknown [id number] Unknown [id number] Unknown [id number] Unknown [id number] Unknown [id number] Unknown [id number] Unknown [id number] Unknown [id number] Unknown [id number] Unknown [id number] Social History Date Type Detail Facility Start: 01-24-2023 End: 03-29-2023 Alcohol Use Alcohol Use [facility] Work Phone: Comment on above: Occasional alcohol u se - Wine very little Water aerobics , heterosexua l Housewife 4 Tobacco use: Tobacco use: [facility] Work Phone: Tobacco use: Tobacco use: [facility] Work Phone: Start: 03-07-2021 End: 03-07-2021 Tobacco smoking status NHIS Unknown if ever smoked [facility] Start: 1965 Sex Assigned At Female W [facility] Start: 02-11-2016 End: 09-07-2025 Tobacco smoking status NHIS Never smoked tobacco [facility] Work Phone: Start: 02-11-2016 End: 03-29-2023 Tobacco use and exposure Smokeless tobacco non-user [facility] Work Phone: Start: 12-09-2019 End: 03-29-2023 Alcohol intake Current non-drinker of alcohol (finding) [facility] Start: 02-11-2016 End: 03-29-2023 Tobacco Comment grew up around smokers [facility] Start: 1965 Sex Assigned At Not on file [facility] Start: 01-24-2023 End: 03-29-2023 Tobacco use panel [facility] National Score (1-10 0), lower number is lower risk 50 [facility] Clinical Notes 02-23-2016 to 09-07-2025 Note Date & Type Note Facility 09-07-2025 Discharge summary [facility] 09-07-2025 Discharge summary Note Date/Time September 07, 2025 4:44pm [facility] Medical Records Department [address] [place] [address] Emergency Department Summary 09/07/25 MR#: [id number] Acct: [id number] Name: VICKIE BARLOW Rep #:[id number] : 1965 60 From: Dylan Herrera DO PCP: Mary Cobb, BRUSH MATERIAL PREPARER-C Status:RE G ER Location: ED HPI History [...] she does not want one here today. [facility] Medical History Hx of pulmonary embolus Atrial [...] 2.5 mg/3 mL 2.5 mg inhalation BID ME N 04/06/25 04/06/25 History (0.083 %) solution [...] following commands knew that she was at [facility] year is 2024 Skin: Patient has [...] OF STRENGTH Primary Care Provider: Mary Cobb BRUSH MATERIAL PREPARER Referrals: Mary Cobb NP, BRUSH MATERIAL PREPARER-C [Primary Care Provider, Family Practice] Activity Restrictions/Additional [...] symptoms or any other concerns Print Language: Faroese Disposition Disposition: Home, Self Care What to do if you have Problems For any increased pain, shortness of breath, bleeding, nausea or vomiting, chestpain, or any unexpected problems, contact your Primary Care Provider. Call [facility] ([phone]) or report to the closest Emergency Room. Call 911 if necessary. 09/07/25 1644 <Electronically signed by Dylan Herrera DO> Cosigner Signature (if applicable): CC: BRUSH MATERIAL PREPARER-C Mary Cobb ~ Signed [facility] Work Phone: 1(872) 902-890806-19-2025 Evaluation note* Diagnosis Onset Date Resolution Status Admit Date Atrial fibrillation acute May 14, 2025 1:42pm Elevated blood pressure reading acut e May 14, 2025 1:42pm Hx of pulmonary embolus acute J [facility] 2024 1:42pm [facility] Work Phone: 1(135) 863-845005-12-2025 Discharge summary [facility] Medical Records Department [address] [place] [address] Emergency Department Summary 04/06/25 MR#: [id number] Acct: [id number] Name: VICKIE BARLOW Rep #:[id number] : 1965 59 From: Shawn Soni MD PCP: LYNDSEY Wood Status:RE G ER Location: ED HPI History of Present Illness Chief Complaint: Shortness of Breath Informant: patient Narrative Narrative: 59-year-old female history of mild intermittent asthma states she has been dealing with pneumonia for the past month and being cared for down in [place]. She was on antibiotics for a while [...] diagnosed with asthma since she was young. [facility] Medical History Hx of pulmonary embolus Atrial [...] 2.5 mg/3 mL 2.5 mg inhalation BID ME N 04/06/25 04/06/25 History (0.083 %) solution [...] in Verified 04/06/25 12:49 joints Family History (Reviewed 05/16/24 @ 11:32 by Zahra Renner BRUSH MATERIAL PREPARER, BRUSH MATERIAL PREPARER-C) Mother Asthma Diabetes Heart disease Hypertension CAD [...] 72.3 H Lymph % (Auto) 10.9 L [place] % (Auto) 9.6 Eos % (Auto) 6.1 [...] is identified in the chest. Reading Location: [facility] Chest CTA 04/06/25 15:11 IMPRESSION: No pulmonary embolism is identified. Some of the distal pulmonary arteries cannot be evaluated due to suboptimal opacification. Reading Location: [facility] Rhythm Strip Rhythm Strip: Sinus Rhythm Rate: [...] Provider: Mary Cobb NP Referrals: Mary Cobb BRUSH MATERIAL PREPARER, BRUSH MATERIAL PREPARER-C [Primary Care Provider] - 3-5 Days if not improving Print Language: Faroese Disposition Disposition: Home, Self Care What to do if you have Problems For any increased pain, shortness of breath, bleeding, nausea or vomiting, chestpain, or any unexpected problems, contact your Primary Care Provider. Call [facility] ([phone]) or report tothe closest Emergency Room. Call 911 if necessary. 04/06/252128 Cosigner Signature (if applicable): CC: BRUSH MATERIAL PREPARER-C Mary Cobb ~ Signed [facility]05-12-2025 Radiology Diagnostic study note [facility] Imaging Services [address] [place] [address] CTA Chest W/WO Contrast MR#: [id number] Acct: [id number] Name: VICKIE BARLOW Rep #: [id number] : 1965 F 59 From: Anne Bartlett MD PCP: LYNDSEY Wood Status: RE G ER Study:CTA Chest W/WO Contrast Date of Exam: 04/06/25 Exam# [id number] Ordering Dr: Richard Soni MD EXAM: CT [...] evaluated due to suboptimal opacification. Reading Location: [facility] CC: BRUSH MATERIAL PREPARER-C Mary Cobb; Dr. Shawn Soni MD ~ Marine Safety Officer: Signed [facility]05-12-2025 Discharge summary Author Shawn Soni [facility] Note Date/Time April 06, 2025 9:29p m [facility] Medical Records Department [address] [place] [address] Emergency Department Summary 04/06/25 MR#: [id number] Acct: [id number] Name: VICKIE BARLOW Rep #:[id number] : 1965 59 From: Shawn Soni MD PCP: LYNDSEY Wood Status:RE G ER Location: ED HPI History of Present Illness Chief Complaint: Shortness of Breath Informant: patient Narrative Narrative: 59-year-old female history of mild intermittent asthma states she has been dealing with pneumonia for the past month and being cared for down in [place]. She was on antibiotics for a while [...] diagnosed with asthma since she was young. [facility] Medical History Hx of pulmonary embolus Atrial [...] 2.5 mg/3 mL 2.5 mg inhalation BID ME N 04/06/25 04/06/25 History (0.083 %) solution [...] 72.3 H Lymph % (Auto) 10.9 L [place] % (Auto) 9.6 Eos % (Auto) 6.1 [...] is identified in the chest. [facility] Chest CTA 04/06/25 15:11 IMPRESSION: No pulmonary embolism is identified. Some of the distal pulmonary arteries cannot be evaluated due to suboptimal opacification. Reading Location: [facility] Rhythm Strip Rhythm Strip: Sinus Rhythm Rate: [...] Provider: Mary Cobb NP Referrals: Mary Cobb BRUSH MATERIAL PREPARER, YONIS-C [Primary Care Provider] - 3-5 Days if not improving Print Language: Faroese Disposition Disposition: Home, Self Care What to do if you have Problems For any increased pain, shortness of breath, bleeding, nausea or vomiting, chestpain, or any unexpected problems, contact your Primary Care Provider. Call [facility] ([phone]) or report to the closest Emergency Room. Call 911 if necessary. 04/06/252128 <Electronically signed by Shawn Soni MD> Cosigner Signature (if applicable): CC: LYNDSEY Cobb ~ Signed [facility] Work Phone: 1(661) 928-984005-12-2025 Radiology Diagnostic study note [facility] Imaging Services [address] [place] [id number] Chest PA and Lateral MR#: [id number] Acct: [id number] Name: VICKIE BARLOW Rep #: [id number] : 1965 F 59 From: Godfrey Gipson MD PCP: Mary Cobb, PAMELLAC Status: ME E ER Study:Chest PA and Lateral Date of Exam: 04/06/25 Exam# [id number] Ordering Dr: Provider ,Ed P. PROCEDURE: CHEST [...] in the chest. Reading Location: [facility] CC: BRUSH MATERIAL PREPARER-C Mary Cobb; ED PHYSICIAN PROVIDER ~ Marine Safety Officer: Signed [facility]08-19-2023 Miscellaneous Notes* Letter - Coordinator, Mammography - 07/14/2023 8:12 AM EDT July 16, 2023 PID: [id number] Marilin Barlow [address] [place] [id number] Dear Ms. Barlow, We are pleased to [...] report will be kept on file at [facility] as part of your permanent medical record and are available for your continuing care. Thank you for allowing us to help in meeting your health care needs. Sincerely, Dr. Clark Interpreting Radiologist [facility] (Normal over 40) documented in this encounterU[facility] Center08-18-2023 NoteHNO ID: [id number] Author: Chanelle Wilkerson RT(Susie) Service: Radiology Author Type: Ramp Attendant Type: Progress Notes Filed: 07/13/2023 12:48 PM [...] BY: RT Armando(R) July 13, 2023 12:48 [facility]08-18-2023 History of Present illness Narrative* Chanelle Wilkerson [...] 13, 2023 12:48 PM documented in this encounterU[facility]07-[facility]-2023 Miscellaneous Notes* Telephone Encounter - Lydia García LPN - 05/30/2023 11:03 AM EDT Spoke with patient and she is still traveling to [place] with her for his treatments and does [...] is currently undergoing treatment for CA in [place] and she needs to look at her [...] Thanks. Marques Paul MD documented in this encounterU[facility] Center05-04-2023 NoteHNO ID: [id number] Author: Marques Paul MD Service: ? Author [...] the patient. [facility] Instructions* Patient Instructions* Milady Azevedo Ma - [...] to contact the office. documented in this encounterU[facility]05-04-2023 History of Present illness Narrative* Marques Paul [...] well Marques Paul MD documented in this encounterU[facility] Center03-07-2023 Miscellaneous Notes* Telephone Encounter - Marques Paul [...] an appointment this week before leaving for [place]. Has several other appointments. She is now scheduled for March 29. Won't be back from [place] until end of February, beginning of March. She will see a doctor in [place] if she has any problems. JONA Boland RN * Telephone Encounter - Marques Paul MD - 01/29/2023 5:17 PM EST 1 pm on or Sun or she can have w/ an BRUSH MATERIAL PREPARER or CNM. Thanks. Marques Paul MD * Telephone Encounter - Lydia García LPN - 01/29/2023 2:49 PM EST Patient notified of results and mentioned that she is leaving for [place] this weekend and won't beback until mid [...] Thanks. Marques Paul MD documented in this encounterU[facility] Center03-02-2023 NoteHNO ID: [id number] Author: Marybel Lux RDMS Service: ? Author Type: Ramp Attendant Type: Progress Notes Filed: 01/25/2023 9:56 AM [...] Marybel Lux RDMS January 25, 2023 9:56 [facility]03-02-2023 History of Present illness Narrative* Marybel Lux [...] 25, 2023 9:56 AM documented in this encounterUc [facility] Center02-20-2023 Miscellaneous Notes* Telephone Encounter - Aicha Moore [...] instructions. Aicha Moore LPN documented in this encounterUc [facility] Center03-30-2016 History of Past illness Narrative* Problem Noted [...] of this encounter (statuses as of 01/15/2023) [facility] of Past illness Narrative* Problem Noted [...] of this encounter (statuses as of 01/30/2023) [facility] of [facility] illness Narrative* Problem Noted [...] of this encounter (statuses as of 03/29/2023) [facility] of Past illness Narrative* Problem Noted [...] of this encounter (statuses as of 05/31/2023) [facility] of [facility] illness Narrative* Problem Noted [...] of this encounter (statuses as of 07/17/2023) [facility] of [facility] illness Narrative* Problem Noted [...] of this encounter (statuses as of 09/30/2023) [facility] of [facility] illness Narrative* Problem Noted [...] of this encounter (statuses as of 09/30/2023) [facility] noteNo assessment information availableWMercy [facility] Work Phone: Evaluation note* Diagnosis PMB (postmenopausal bleeding)- Primary Postmenopausal bleeding documented in this encounter [facility] note* Diagnosis PMB (postmenopausal bleeding)- Primary Postmenopausal bleeding Thickened endometrium Nonspecific (abnormal) findings on radiological and other examination of genitourinary organs Encounter for screening mammogram for malignant neoplasm of breast Other screening mammogram Encounter for screening for malignant neoplasm of cervix Screening for malignant neoplasm of the cervix Special screening examination for human papillomavirus (HPV) documented in this encounter [facility] note* Diagnosis Encounter for screening mammogram for malignant neoplasm of breast Other screening mammogram documented in this encounter [facility] note* Diagnosis PMB (postmenopausal bleeding) Postmenopausal bleeding documented in this encounter [facility] note* Diagnosis Onset Date Resolution Status Admit Date Atrial fibrillation acute May 14, 2025 1:42pm Hx of pulmonary embolus acute J une 2024 1:42pm [facility] Work Phone: Evaluation note* Diagnosis Onset Date Resolution Status Admit Date Atrial fibrillation acute Octob er 2024 2:23pm Elevated blood pressure reading acut e September 21, 2025 2:23pm Hx of pulmonary embolus acute O ctober 2024 2:23pm [facility] Work Phone: Hospital Discharge instructionsAdditional Instructions Keep [...] Return with worsening symptoms or any other concernsWMer[facility] Work Phone: Instructions* Name Dates Details Patient Instructions Indication:Nonsmoker Start:15-Mar-2021 Instruction Type:Provider Instructions for Treatment How to Access Health Informa tion Online using Patient Portal and 3rd Libertarian Apps Indication:Nonsmoker Start:15-Mar-2021 Instruction Type:Patient Education Patient Instructions Indication:Nonsmoker Start:11-Mar-2021 Instruction Type:Provider Instructions for Treatment How to Access Health Informa tion Online using Patient Portal and 3rd Libertarian Apps Indication:Nonsmoker Start:11-Mar-2021 Instruction Type:Patient Education Patient Instructions Indication:Nonsmoker Start:01-Mar-2021 Instruction Type:Provider Instructions for Treatment How to Access Health Informa tion Online using Patient Portal and 3rd Libertarian Apps Indication:Nonsmoker Start:01-Mar-2021 Instruction Type:Patient Education How [...] Informa tion Online using Patient Portal and Goji Libertarian Apps Indication:Nonsmoker Start:15-Mar-2021 Instruction Type:Patient Education Patient Instructions Indication:Nonsmoker Start:11-Mar-2021 Instruction Type:Provider Instructions for Treatment How to Access Health Informa tion Online using Patient Portal and ShoutOut Apps Indication:Nonsmoker Start:11-Mar-2021 Instruction Type:Patient Education Patient Instructions Indication:Nonsmoker Start:01-Mar-2021 Instruction Type:Provider Instructions for Treatment How to Access Health Informa tion Online using Patient Portal and 3rd Libertarian Apps Indication:Nonsmoker Start:01-Mar-2021 Instruction Type:Patient Education How [...] tion Online using Patient Portal and 3rd Libertarian Apps Indication:Nonsmoker Start:15-Mar-2021 Instruction Type:Patient Education Patient Instructions Indication:Nonsmoker Start:11-Mar-2021 Instruction Type:Provider Instructions for Treatment How to Access Health Informa tion Online using Patient Portal and 3rd Libertarian Apps Indication:Nonsmoker Start:11-Mar-2021 Instruction Type:Patient Education Patient Instructions Indication:Nonsmoker Start:01-Mar-2021 Instruction Type:Provider Instructions for Treatment How to Access Health Informa tion Online using Patient Portal and 3rd Libertarian Apps Indication:Nonsmoker Start:01-Mar-2021 Instruction Type:Patient Education How [...] tion Online using Patient Portal and 3rd Libertarian Apps Indication:Nonsmoker Start:15-Mar-2021 Instruction Type:Patient Education Patient Instructions Indication:Nonsmoker Start:11-Mar-2021 Instruction Type:Provider Instructions for Treatment How to Access Health Informa tion Online using Patient Portal and 3rd Libertarian Apps Indication:Nonsmoker Start:11-Mar-2021 Instruction Type:Patient Education Patient Instructions Indication:Nonsmoker Start:01-Mar-2021 Instruction Type:Provider Instructions for Treatment How to Access Health Informa tion Online using Patient Portal and [employer] Libertarian Apps Indication:Nonsmoker Start:01-Mar-2021 Instruction Type:Patient Education How [...] tion Online using Patient Portal and 3rd Libertarian Apps Indication:Nonsmoker Start:15-Mar-2021 Instruction Type:Patient Education Patient Instructions Indication:Nonsmoker Start:11-Mar-2021 Instruction Type:Provider Instructions for Treatment How to Access Health Informa tion Online using Patient Portal and 3rd Libertarian Apps Indication:Nonsmoker Start:11-Mar-2021 Instruction Type:Patient Education Patient Instructions Indication:Nonsmoker Start:01-Mar-2021 Instruction Type:Provider Instructions for Treatment How to Access Health Informa tion Online using Patient Portal and 3rd Libertarian Apps Indication:Nonsmoker Start:01-Mar-2021 Instruction Type:Patient Education How [...] tion Online using Patient Portal and 3rd Libertarian Apps Indication:Nonsmoker Start:15-Mar-2021 Instruction Type:Patient Education Patient Instructions Indication:Nonsmoker Start:11-Mar-2021 Instruction Type:Provider Instructions for Treatment How to Access Health Informa tion Online using Patient Portal and 3rd Libertarian Apps Indication:Nonsmoker Start:11-Mar-2021 Instruction Type:Patient Education Patient Instructions Indication:Nonsmoker Start:01-Mar-2021 Instruction Type:Provider Instructions for Treatment How to Access Health Informa tion Online using Patient Portal and 3rd Libertarian Apps Indication:Nonsmoker Start:01-Mar-2021 Instruction Type:Patient Education How [...] tion Online using Patient Portal and 3rd Libertarian Apps Indication:Knee pain Start:01-Nov-2022 Instruction Type:Patient Education Patient Instructions Indication:Nonsmoker Start:15-Mar-2021 Instruction Type:Provider Instructions for Treatment How to Access Health Informa tion Online using Patient Portal and 3rd Libertarian Apps Indication:Nonsmoker Start:15-Mar-2021 Instruction Type:Patient Education Patient Instructions Indication:Nonsmoker Start:11-Mar-2021 Instruction Type:Provider Instructions for Treatment How to Access Health Informa tion Online using Patient Portal and 3rd Libertarian Apps Indication:Nonsmoker Start:11-Mar-2021 Instruction Type:Patient Education Patient Instructions Indication:Nonsmoker Start:01-Mar-2021 Instruction Type:Provider Instructions for Treatment How to Access Health Informa tion Online using Patient Portal and 3rd Libertarian Apps Indication:Nonsmoker Start:01-Mar-2021 Instruction Type:Patient Education How [...] tion Online using Patient Portal and 3rd Libertarian Apps Indication:Nonsmoker Start:15-Mar-2021 Instruction Type:Patient Education Patient Instructions Indication:Nonsmoker Start:11-Mar-2021 Instruction Type:Provider Instructions for Treatment How to Access Health Informa tion Online using Patient Portal and 3rd Libertarian Apps Indication:Nonsmoker Start:11-Mar-2021 Instruction Type:Patient Education Patient Instructions Indication:Nonsmoker Start:01-Mar-2021 Instruction Type:Provider Instructions for Treatment How to Access Health Informa tion Online using Patient Portal and 3rd Libertarian Apps Indication:Nonsmoker Start:01-Mar-2021 Instruction Type:Patient Education How [...] Referred By Contac t Referred To Contact [facility] Diagnoses PMB (postmenopausal bleeding) Procedures ENDOMETRIAL BIOPSY ENDOMETRIAL BX W/WO ENDOCERVIX BX W/O DILAT SPX Marques aPul MD [address] [place] [address] [address] Referral ID Status Reason Start Date Expiration Date Visits Requested Visits Authorized [id number] Authorized Auto-Generat ed Referral 01/12/2023 01/12/2024 1 1 * Diagnostic Procedure Only (Routine) - Authorized Specialty Diagnoses / Procedures Referred By Yonis cutler Referred To Contact [facility] Diagnoses PMB (postmenopausal bleeding) Procedures US FEMALE PELVIS TRANSABD LTD US PELVIC NONOBSTETRIC IMAGE DCMTN LIMITED/F/U Marques Paul MD [address] [place] [address] [facility] Referral ID Status Reason Start Date Expiration Date Visits Requested Visits Authorized [id number] Authorized Auto-Generat ed Referral 01/12/2023 02/11/2024 1 1 * Diagnostic Procedure Only (Routine) - Authorized Specialty Diagnoses / Procedures Referred By Yonis cutler Referred To Contact [facility] Diagnoses PMB (postmenopausal bleeding) Procedures US FEMALE PELVIS TRANSVAG US TRANSVAGINAL Marques Paul MD [address] [place] [address] [facility] Referral ID Status Reason Start Date Expiration Date Visits Requested Visits Authorized [id number] Authorized Auto-Generat ed Referral 01/12/2023 02/11/2024 1 1 [facility] for referral (narrative)* Diagnostic Procedure Only (Routine) - Authorized Specialty Diagnoses / Procedures Referred By Yonis cutler Referred To Contact [facility] Diagnoses Encounter for screening mammogram for malignant neoplasm of breast Procedures KAUSHIK SCREENING W JIMMY SCREENING DIGITAL BREAST TOMOSYNTHESIS BI SCREENING MAMMOGRAPHY BI 2-VIEW BREAST INC CAD Marques Paul MD [address] [place] [address] [facility] [address] [place] [address] Referral ID Status Reason Start Date Expiration Date Visits Requested Visits Authorized [id number] Authorized Auto-Generat ed Referral 03/29/2023 04/27/2024 1 1 * Outpatient Procedure (Routine) - Pending Review Specialty Diagnoses / Procedures Referred By Yonis cutler Referred To Contact [facility] Diagnoses PMB (postmenopausal bleeding) Thickened endometrium Procedures ENDOMETRIAL BIOPSY ENDOMETRIAL BX W/WO ENDOCERVIX BX W/O DILAT SPX Marques Paul MD [address] [place] [address] [facility] [address] [place] [address] Referral ID Status Reason Start Date Expiration Date Visits Requested Visits Authorized [id number] Pending Review Auto-Generat ed Referral 03/29/2023 03/28/2024 1 1 [facility] for referral (narrative)* Diagnostic Procedure Only (Routine) - Closed Specialty Diagnoses / Procedures Referred By Yonis cutler Referred To Contact [facility] Diagnoses Encounter for screening mammogram for malignant neoplasm of breast Procedures KAUSHIK SCREENING W JIMMY SCREENING DIGITAL BREAST TOMOSYNTHESIS BI SCREENING MAMMOGRAPHY BI 2-VIEW BREAST INC CAD Marques Paul MD [address] [place] [address] [facility] [address] [place] [id number] Referral ID Status Reason Start Date Expiration Date V isits Requested Visits Authorized [id number] Closed Auto-Generate d Referral 03/29/2023 04/27/2024 1 1 [facility] for referral (narrative)* Diagnostic Procedure Only (Routine) - Closed Specialty Diagnoses / Procedures Referred By Yonis t Referred To Contact [facility] Diagnoses PMB (postmenopausal bleeding) Procedures US FEMALE PELVIS TRANSABD LTD US PELVIC NONOBSTETRIC IMAGE DCMTN LIMITED/F/U Marques Paul MD [address] [place] [address] [place] [address] Referral ID Status Reason Start Date Expiration Date V isits Requested Visits Authorized [id number] Closed Auto-Generate d Referral 01/12/2023 02/11/2024 1 1 * Diagnostic Procedure Only (Routine) - Closed Specialty Diagnoses / Procedures Referred By Yonis cutler Referred To Contact [facility] Diagnoses PMB (postmenopausal bleeding) Procedures US FEMALE PELVIS TRANSVAG US TRANSVAGINAL Marques Paul MD [address] [place] [address] [place] [address] Referral ID Status Reason Start Date Expiration Date V isits Requested Visits Authorized [id number] Closed Auto-Generate d Referral 01/12/2023 02/11/2024 1 1 [facility]No reason for referral information availableWMercy [facility] Work Phone: Reason for visit Narrative* Diagnostic Procedure Only (Routine) - Closed Specialty Diagnoses / Procedures Referred By Yonis cutler Referred To Contact [facility] Diagnoses Encounter for screening mammogram for malignant neoplasm of breast Procedures KAUSHIK SCREENING W JIMMY SCREENING DIGITAL BREAST TOMOSYNTHESIS BI SCREENING MAMMOGRAPHY BI 2-VIEW BREAST INC CAD Marques Paul MD [address] [place] [address] [facility] [address] [facility] [place] [address] Referral ID Status Reason Start Date Expiration Date V isits Requested Visits Authorized [id number] Closed Auto-Generate d Referral 03/29/2023 04/27/2024 1 1 [facility] Family History No Family History Records FoundUnknown Family Member Name Dates Details Father Comments:[place], Heart/Lung, H BP 44 yo [place] Status:Active Mother Comments:[place], Emotional, He art/Lung, HBP, Ovarian disease, COPD Status:Active Unknown Family Member Name Dates Details Father Comments:[place], Heart/Lung, H BP 44 yo [place] Status:Active Mother Comments:[place], Emotional, He art/Lung, HBP, Ovarian disease, COPD Status:Active Unknown Family Member Name Dates Details Father Comments:[place], Heart/Lung, H BP 44 yo PA Status:Active Mother Comments:[place], Emotional, He art/Lung, HBP, Ovarian disease, COPD Status:Active Unknown Family Member Name Dates Details Father Comments:[place], Heart/Lung, H BP 44 yo PA Status:Active Mother Comments:[place], Emotional, He art/Lung, HBP, Ovarian disease, COPD Status:Active Unknown Family Member Name Dates Details Father Comments:[place], Heart/Lung, H BP 44 yo PA Status:Active Mother Comments:[place], Emotional, He art/Lung, HBP, Ovarian disease, COPD Status:Active Unknown Family Member Name Dates Details Father Comments:[place], Heart/Lung, H BP 44 yo PA Status:Active Mother Comments:[place], Emotional, He art/Lung, HBP, Ovarian disease, COPD Status:Active Unknown Family Member Name Dates Details Father Comments:[place], Heart/Lung, H BP 44 yo PA Status:Active Mother Comments:[place], Emotional, He art/Lung, HBP, [...] Father Comments:[place], Heart/Lung, H BP 44 yo PA Status:Active Mother Comments:[place], Emotional, He art/Lung, HBP, Ovarian disease, COPD Status:Active Unknown Family Member Name Dates Details Father Comments:[place], Heart/Lung, H BP 44 yo PA Status:Active Mother Comments:[place], Emotional, He art/Lung, HBP, Ovarian disease, COPD Status:Active Unknown Family Member Name Dates Details Father Comments:[place], Heart/Lung, H BP 44 yo PA Status:Active Mother Comments:[place], Emotional, He art/Lung, HBP, Ovarian disease, COPD Status:Active Unknown Family Member Name Dates Details Father Comments:[place], Heart/Lung, H BP 44 yo [place] Status:Active Mother Comments:[place], Emotional, He art/Lung, HBP, [...] tion Online using Patient Portal and 3rd Libertarian Apps Indication:Nonsmoker Start:01-Mar-2021 Instruction Type:Patient Education How [...] tion Online using Patient Portal and 3rd Libertarian Apps Indication:Nonsmoker Start:11-Mar-2021 Instruction Type:Patient Education Patient Instructions Indication:Nonsmoker Start:01-Mar-2021 Instruction Type:Provider Instructions for Treatment How to Access Health Informa tion Online using Patient Portal and 3rd Libertarian Apps Indication:Nonsmoker Start:01-Mar-2021 Instruction Type:Patient Education How [...] Start:20-Oct-2015 Instruction Type:Patient Education How to access [employer] online - Detail Indication:Stress reaction, emotional Start:20-Oct-2015 [...] No August 15, 2019 3:40pm Power of Reference And Instruction Librarian No July 3:40pm Advance Directive Response Recorded Date/ Time Advance Directives No November 30, 2015 2:44pm Living Will No August 15, 2019 2:40pm Power of Reference And Instruction Librarian No July 2:40pm Advance Directive Response Recorded Date/ Time Do you have a Healthcare Power of Reference And Instruction Librarian? No April 06, 2025 3:25pm Advance Directives No November 30, 2015 3:44pm Advance Directive Response Recorded Date/ Time Do you have a Healthcare Power of Reference And Instruction Librarian? Yes September 07, 2025 3:26pm Advance Directives [...] content) DATE CREATED AUTHOR 11/02/2022 [facility] DATE CREATED AUTHOR AUTHOR'S ORGANIZ ATION 07/17/2023 [facility] DATE CREATED AUTHOR AUTHOR'S ORGANIZ ATION 01/28/2024 [facility] DATE CREATED AUTHOR AUTHOR'S ORGANIZ ATION 09/26/2025 [facility] Source Comments (unrecognize d section and content) In the event this informatio n is protected by the Federal Confidentiality of Alcohol and Drug Abuse Patient Records regulations: The Federal rules restrict any use of the information to criminally investigate or prosecute any alcohol or drug abuse patient.[facility] Center[facility] the event this information is protected by the Federal Confidentiality of Alcohol and Drug Abuse Patient Records regulations: The Federal rules restrict any use of the information to criminally investigate or prosecute any alcohol or drug abuse patient.[facility] CenterIn the event this information is protected by the Federal Confidentiality of Alcohol and Drug Abuse Patient Records regulations: The Federal rules restrict any use of the information to criminally investigate or prosecute any alcohol or drug abuse patient.[facility] CenterIn the event this information is protected by the Federal Confidentiality of Alcohol and Drug Abuse Patient Records regulations: The Federal rules restrict any use of the information to criminally investigate or prosecute any alcohol or drug abuse patient.[facility] CenterIn the event this information is protected by the Federal Confidentiality of Alcohol and Drug Abuse Patient Records regulations: The Federal rules restrict any use of the information to criminally investigate or prosecute any alcohol or drug abuse patient.[facility] CenterIn the event this information is protected by the Federal Confidentiality of Alcohol and Drug Abuse Patient Records regulations: The Federal rules restrict any use of the information to criminally investigate or prosecute any alcohol or drug abuse patient.[facility] CenterIn the event this information is protected by the Federal Confidentiality of Alcohol and Drug Abuse Patient Records regulations: The Federal rules restrict any use of the information to criminally investigate or prosecute any alcohol or drug abuse patient.[facility] Reason for Visit (unrecogniz ed section and content) Reason Comments Patient Update Reason Comments Results Reason Comments Endometrial Biopsy Reason Comments Radiology US Specialty Diagnoses / Procedures Referred By Contac t Referred To Contact [facility] Diagnoses PMB (postmenopausal bleeding) Procedures US FEMALE PELVIS TRANSABD LTD US PELVIC NONOBSTETRIC IMAGE DCMTN LIMITED/F/U Marques Paul MD [address] [place] [address] [place] [address] Referral ID Status Reason Start Date Expiration Date V isits Requested Visits Authorized [id number] Closed Auto-Generate d Referral 01/12/2023 02/11/2024 1 1 Care Teams (unrecognized sec tion and content) Hurricane Tracker Relationship Specialty Start Date End Date Domi Handley DO PCP - General Internal Medicine 11/24/15 Team Status: Active Member Role Status Dates Dr. Domi Handley DO Family Provider Active Mary Cobb BRUSH MATERIAL PREPARER, BRUSH MATERIAL PREPARER-C Primary Care Provider Activ e Team Status: Inactive Member Role Status Dates Mary Cobb NP, BRUSH MATERIAL PREPARER-C Primary Care Provider, Attending Provider, Referring Provider Active Hurricane Tracker Relationship Specialty Start Date End Date Domi Handley DO PCP - General Internal Medicine 11/24/15 Hurricane Tracker Relationship Specialty Start Date End Date Marlena Handleyerick Sweeney DO PCP - General Internal Medicine 11/24/15 Hurricane Tracker Relationship Specialty Start Date End Date TawandaDomi DO PCP - General Internal Medicine 11/24/15 Hurricane Tracker Relationship Specialty Start Date End Date Tawanda, Domirichard Sweeney DO PCP - General Internal Medicine 11/24/15 Hurricane Tracker Relationship Specialty Start Date End Date Hilda Handleyrichard Sweeney DO PCP - General Internal Medicine 11/24/15 Hurricane Tracker Relationship Specialty Start Date End Date Tawanda Domi Sweeney DO PCP - General Internal Medicine 11/24/15 Team Status: Inactive Member Role Status Dates Mary Cobb NP, [employer]-C Primary Care Provider, Atte nding Provider Active Team Status: Active Member Role Status Dates Mary Cobb NP, [employer]-C Primary Care Provider Activ e Team Status: Active Member Role Status Dates Mary Cobb [employer] PREPARER, [employer]ER-C Primary Care Provider Activ e Start: April 06, 2025 Mary Cobb [employer] PREPARER, [employer]ER-C Attending Provider Active Start: April 06, 2025 Mary Cobb [employer] PREPARER, [employer]ER-C Referring Provider Active Start: April 06, 2025 Team Status: Inactive Member Role Status Dates Mary Cobb NP, [employer]-C Primary Care Provider Activ e Start: April 06, 2025 End: April 06, 2025 Dr. Shawn Soni MD Emergency Provider Active Start: April 06, 2025 End: April 06, 2025 Team Status: Inactive Member Role Status Dates Mary Cobb NP, [employer]-C Primary Care Provider Activ e Start: April 06, 2025 End: April 06, 2025 Dr. Shawn Soni MD Attending Provider Active Start: April 06, 2025 End: April 06, 2025 Dr. Shawn Soni MD Emergency Provider Active Start: April 06, 2025 End: April 06, 2025 Team Status: Inactive Member Role Status Dates Mary Cobb [employer] PREPARER, [employer]ER-C Primary Care Provider Activ e Start: April 24, 2025 End: April 24, 2025 Mary Cobb [employer] MATERIAL PREPARER, [employer]ER-C Attending Provider Active Start: April 24, 2025 End: April 24, 2025 Mary Cobb [employer]ERIAL PREPARER, [employer]ER-C Referring Provider Active Start: April 24, 2025 End: April 24, 2025 Team Status: Inactive Member Role Status Dates Mary Cobb [employer] PREPARER, [employer]ER-C Primary Care Provider Activ e Start: May 14, 2025 End: May 14, 2025 Mary Cobb [employer]ERIAL PREPARER, [employer]ER-C Referring Provider Active Start: May 14, 2025 End: May 14, 2025 Zahra Renner [employer] PREPARER, [employer]ER-C Attending Provider Active Start: May 14, 2025 End: May 14, 2025 Team Status: Active Member Role/Relationship Status Dates Mary Cobb [employer] PREPARER, [employer]ER-C Primary Care Provider Activ e Team Status: Active Member Role/Relationship Status Dates Mary Cobb [employer] PREPARER, [employer]ER-C Primary Care Provider Activ e Start: April 06, 2025 Mary Cobb [employer]ERIAL PREPARER, [employer]ER-C Attending Provider Active Start: April 06, 2025 Mary Cobb [employer]ERIAL PREPARER, [employer]ER-C Referring Provider Active Start: April 06, 2025 Team Status: Inactive Member Role/Relationship Status Dates Mary Cobb [employer]ERIAL PREPARER, [employer]ER-C Primary Care Provider Activ e Start: April 06, 2025 End: April 06, 2025 Dr. Shawn Soni MD Attending Provider Active Start: April 06, 2025 End: April 06, 2025 Dr. Shawn Soni MD Emergency Provider Active Start: April 06, 2025 End: April 06, 2025 Team Status: Inactive Member Role/Relationship Status Dates Mary Cobb [employer] PREPARER, [employer]ER-C Primary Care Provider Activ e Start: April 24, 2025 End: April 24, 2025 Mary Cobb [employer] PREPARER, [employer]ER-C Attending Provider Active Start: April 24, 2025 End: April 24, 2025 Mary Cobb [employer] MATERIAL PREPARER, [employer]ER-C Referring Provider Active Start: April 24, 2025 End: April 24, 2025 Team Status: Inactive Member Role/Relationship Status Dates Mary Cobb [employer] PREPARER, [employer]ER-C Primary Care Provider Activ e Start: May 14, 2025 End: May 14, 2025 Mary Cobb [employer] PREPARER, [employer]ER-C Referring Provider Active Start: May 14, 2025 End: May 14, 2025 Zahra Renner [employer] PREPARER, [employer]ER-C Attending Provider Active Start: May 14, 2025 End: May 14, 2025 Team Status: Active Member Role/Relationship Status Dates Mary Cobb [employer]ERIAL PREPARER, [employer]ER-C Primary Care Provider Activ e Start: May 18, 2025 Mary Cobb [employer] MATERIAL PREPARER, [employer]ER-C Attending Provider Active Start: May 18, 2025 Mary Cobb [employer]ERIAL PREPARER, [employer]ER-C Referring Provider Active Start: May 18, 2025 Team Status: Inactive Member Role/Relationship Status Dates Mary Cobb [employer] PREPARER, [employer]ER-C Primary Care Provider Activ e Start: May 26, 2025 End: May 26, 2025 Zahra Renner [employer] PREPARER, [employer]ER-C Attending Provider Active Start: May 26, 2025 End: May 26, 2025 Zahra Renner [employer]ERIAL PREPARER, [employer]ER-C Referring Provider Active Start: May 26, 2025 End: May 26, 2025 Team Status: Active Member Role/Relationship Status Dates Mary Cobb [employer] PREPARER, [employer]ER-C Primary care physician Acti ve Team Status: Inactive Member Role/Relationship Status Dates Mary Cobb [employer] PREPARER, [employer]ER-C Primary care physician Acti ve Start: May 26, 2025 End: May 26, 2025 Zahra Renner [employer] PREPARER, [employer]ER-C Attending physician Active Start: May 26, 2025 End: May 26, 2025 Zahra Renner [employer] MATERIAL PREPARER, [employer]PARER-C Referring Provider Active Start: May 26, 2025 End: May 26, 2025 Team Status: Active Member Role/Relationship Status Dates Mary Cobb [employer]ERIAL PREPARER, [employer]ER-C Primary care physician Acti ve Start: May 26, 2025 Dr. Stalin Ayers MD Attending physician Active Start: May 26, 2025 Zahra Renner [employer] PREPARER, [employer]ER-C Referring Provider Active Start: May 26, 2025 Team Status: Inactive Member Role/Relationship Status Dates Mary Cobb [employer] PREPARER, [employer]ER-C Primary care physician Acti ve Start: September 07, 2025 End: September 07, 2025 Dr. Dylan Herrera DO Attending physician Active Start: September 07, 2025 End: September 07, 2025 Dr. Dylan Herrera DO Emergency Departme nt Physician Active Start: September 07, 2025 End: September 07, 2025 Team Status: Active Member Role/Relationship Status Dates Mary Cobb [employer] PREPARER, [employer]ER-C Primary care physician Acti ve Start: September 10, 2025 Mary Cobb [employer] PREPARER, [employer]PARER-C Attending physician Active Start: September 10, 2025 Mary Cobb NP, [employer]ER-C Referring Provider Active Start: September 10, 2025 Team Status: Inactive Member Role/Relationship Status Dates Mary Cobb NP, [employer]ER-C Primary care physician Acti ve Start: September 21, 2025 End: September 21, 2025 Mary Cobb NP, [employer]ER-C Referring Provider Active Start: September 21, 2025 End: September 21, 2025 Zahra Renner NP, [employer]ER-C Attending physician Active Start: September 21, 2025 [...] BE BASED ON THE PRIMARY CLINICAL RECORDS. [employer] provides no warranty or guarantee of the accuracy or completeness of information in this document.
[2025-11-11] MEDS: 0.9% Saline Lock 10 ML Syringe IV (06:39)
[2025-11-11 06:40] LABS: Hematocrit 38.7 % (37-47); Hemoglobin 12.9 g/dL (12.0-15.0); Immature Granulocytes Count 0.040 X10^3/uL (0.0-0.0); Mean Corp Hgb Conc 33.3 g/dL (32-36); Mean Corpuscular Volume 93.7 fL (81-99); Mean Platelet Vol. 9.8 fl (6.2-12.0); NRBC Flagged by Analyzer 0 % (0-5); POSITIVE DIFFERENTIAL YES; Platelet Count 210 K/mm3 (150-450); RBC Distribution Width CV 13.2 % (11.6-14.6); RBC Distribution Width SD 45.5 fl (35.1-43.9); Red Blood Count 4.13 M/mm3 (4.2-5.4); White Blood Count 8.2 K/mm3 (4.4-11.0)
[2025-11-11] MEDS: Metoprolol(XL)Succ 25 MG Tablet 75 MG PO (09:15)
--- NOTE | 2025-11-11 10:36 | PN_ITS ---
Subjective Subjective Patient seen and examined. His son subsequently came and was by her bedside. She said she felt her breathing had improved. She denied any coughing or wheezing, chest pain, palpitations, nausea or vomiting or any other symptoms. Review of systems otherwise negative. She is on 2L of oxygen by nasal canula Objective Data Objective Data Vital Signs: Vital Signs Temp Pulse Resp BP Pulse Ox O2 Del Method O2 Flow Rate 98.2 F 80 17 122/71 H 99 Nasal Cannula 2 11/11/25 09:13 11/11/25 09:15 11/11/25 09:13 11/11/25 09:15 11/11/25 09:13 11/11/25 09:13 11/11/25 09:13 Oxygen Flow Rate (L/min) 2 Oxygen Delivery Method Nasal Cannula Weight: 248 lb 7.375 oz Body Mass Index (BMI) 44.0 Intake & Output: Intake and Output for Last 24 Hours 11/09/25 11/10/25 11/11/25 23:59 23:59 23:59 Intake Total 1500 / 1500 Output Total 400 / 400 Balance 1500 / 1500 -400 / -400 Lab / Micro Data 11/11/25 06:25 11/10/25 18:00 Labs: Laboratory Results - last 24 hr 11/10/25 18:00: WBC 13.1 H, RBC 4.49, Hgb 13.8, Hct 41.4, MCV 92.2, MCH 30.7, MCHC 33.3, RDW Std Deviation 44.2 H, RDW Coeff of Merlyn 13.1, Plt Count 248, MPV 9.9, Immature Gran % (Auto) 0.400, Neut % (Auto) 93.8 H, Lymph % (Auto) 1.7 L, Letcher % (Auto) 3.1, Eos % (Auto) 0.5, Baso % (Auto) 0.5, Absolute Neuts (auto) 12.3 H, Absolute Lymphs (auto) 0.22 L, Nucleated RBC % 0, PT 13.7, INR 1.0, APTT 26.7, Sodium 137, Potassium 4.1, Chloride 99, Carbon Dioxide 24.9, Anion Gap 13, BUN 15, Creatinine 0.75, Est GFR (MDRD) Non-Af 90, BUN/Creatinine Ratio 19.4, G lucose 138 H, Lactic Acid < 1.0, Calcium 9.2, Total Bilirubin 0.58, AST 28, ALT 19, Alkaline Phosphatase 76, Total Protein 7.3, Albumin 4.2, Globulin 3.1, Albumin/Globulin Ratio 1.3 11/10/25 22:00: Urine Color Yellow, Urine Clarity Clear, Urine pH 7.0, Ur Specific Dwight 1.010, Urine Protein 30 H, Urine Glucose (UA) Normal, Urine Ketones Negative, Urine Occult Blood 25 H, Urine Nitrite Negative, Urine Bilirubin Negative, Urine Urobilinogen Normal, Ur Leukocyte Esterase Negative, Urine RBC 0 SEEN, Urine WBC 0 SEEN, Ur Squamous Epith Cells 0 SEEN, Urine Bacteria 0 SEEN, Urine Mucus 0 SEEN 11/11/25 00:13: Troponin T High Sens 44 H D 11/11/25 06:25: WBC 8.2, RBC 4.13 L, Hgb 12.9, Hct 38.7, MCV 93.7, MCH 31.2, MCHC 33.3, RDW Std Deviation 45.5 H, RDW Coeff of Merlyn 13.2, Plt Count 210, MPV 9.8, Immature Gran % (Auto) 0.500, Neut % (Auto) 84.1 H, Lymph % (Auto) 3.2 L, Letcher % (Auto) 5.8, Eos % (Auto) 5.8 H, Baso % (Auto) 0.6, Absolute Neuts (auto) 6.9, Absolute Lymphs (auto) 0.26 L, Nucleated RBC % 0 Micro: Microbiology 11/10/25 19:35 Mucosa - Nose SARS-CoV-2, Influenza & RSV (PCR) - Final Radiography Diagnostic Testing: Radiology Impression Chest X-Ray 11/10/25 18:33 IMPRESSION: No acute pulmonary disease. Reading Location: [facility] Abdomen/Pelvis CT 11/10/25 19:02 IMPRESSION: 1. Colonic diverticulosis without signs of diverticulitis. 2. Interval enlargement of the fat containing umbilical hernia. Reading Location: [facility] Chest CTA 11/10/25 22:44 IMPRESSION: No evidence of acute arterial pulmonary thromboembolism. Redemonstration of the bilateral pulmonary mosaic attenuation likely representing small airway disease, recommend clinical correlation. Reading Location: [place] [id number] Physical Exam Const alert, oriented x3 and no apparent distress Constitutional Narrative: class III obesity HEENT normocephalic, head/scalp atraumatic, moist oral mucous membranes and oropharynx normal Eyes EOMs intact bilaterally Neck supple and no JVD Lymph Lymphatic: no lymphedema noted Resp normal respiratory effort, normal air movement and clear to auscultation bilaterally Cardio regular rate, regular rhythm, S1 normal heart sound, S2 normal heart sound and no murmurs GI normal to inspection, nondistended, normoactive bowel sounds, soft to palpation and non-tender Extremity General Extremity: no tenderness to palpation of joints or extremities Skin General Skin Exam: no breakdown Neuro no focal motor deficits, no sensory deficits noted and deep tendon reflexes 2+ bilaterally Motor Exam: general weakness Psych thought process normal, cooperative and affect normal Appearance: appropriate Assessment & Plan Assessment/Plan (1) Hypoxia: PLAN: Plan #Hypoxia likely due to acute exacerbation of asthma * Feels better today. She is on 2 L of oxygen. Says there is usually wear oxygen. She has only minimal wheezing. * Breathing treatments bronchodilators. Placed on IV Solu-Medrol. Titrate oxygen to maintain saturation above 90%. * Chest x-ray on admission showed no acute cardiopulmonary pathology and CTA showed no evidence of PE but showed redemonstration of bilateral pulmonary mosaic attenuation on likely representing small airway disease * of note, pateint says she sees an integrative medicine doctor on ouptatient basis, and has been prescribed inhaled meropenem to fight several bacteria she has in her lung. * #Leucocytosis: etiology unclera. Will monitor #Afib * Was in RVR on admission but this is now resolved. Metoprolol increased 75 mg daily. * Has refused blood platelets and says she takes natokinase for anticoagulation. * #DVT prophylaxis: SCDs Charges/Coding Visit Charges Inpatient E&M: 92207 Subs Hosp L2
--- NOTE | 2025-11-11 11:55 | CASEMGMT ---
Addendum entered by Lindsey White 11/12/25 12:05: Per the pt's RN, pt does not require or qualify for home oxygen. There is not an anticoag rx. No further needs identified. Original Note: RENEE GALICIA Assessment Face to Face with patient for initial transition planning/care coordination assessment. RENEE GALICIA introduced self and role at [facility], pt voices understanding. Pt is A&Ox4 and is resting comfortably in bed and is calm. Pt's sons at the bedside. Care providers, pharmacy, and demographics verified. Admitting dx: Transient Hypoxia LACE Strata: 2 PCP: Mary Cobb Specialists: Denies Preferred Pharmacy: [facility] Insurance: [employer] Prescription Benefit: Yes LNOK: Bharati Barlow (Dtr), Renee (Sister) Living Arrangements: Pt lives alone in a single story home with one step to enter ADLs/IADLs: Indep, 6-Click score is 21. There is not PT ordered and pt denies the need Transportation: Self, family. Denies concerns DME: Pt is currently requiring additional oxygen and may qualify for home oxygen use. A verbal list of local in-network DME companies were provided to the pt at this time. Pt prefers [employer].?Pt also has a pulse ox and nebulizer. Pt also states that she has a rollator, BP Machine, and grab bars. HHC/SNF: Denies hx of or needs Pt?s goal: Home Plan: Anticipate return home alone once medically ready, follow for new oxygen needs and new anticoag Rx due to the hx of AFib. Pt reports that she has plenty of family support at home if needed. Pt states that she feels safe returning home once medically ready and denies the need for any additional therapy or resources. Pt and pt's sons deny further questions, concerns, or needs at this time. Richard White RN, CM
[2025-11-11] MEDS: Magnesium Chloride 64 MG Delay Rel.Tablet PO (19:50)
[2025-11-12 02:00] VITALS: PULSE 102
[2025-11-12 03:10] VITALS: BP 146/94; PULSE 96; RESP 14; TEMP 36.4; O2SAT 96
[2025-11-12] MEDS: 0.9% Saline Lock 10 ML Syringe IV (06:23)
[2025-11-12 07:00] VITALS: PULSE 82
[2025-11-12 07:46] LABS: Hematocrit 37.8 % (37-47); Hemoglobin 12.6 g/dL (12.0-15.0); Immature Granulocytes Count 0.030 X10^3/uL (0.0-0.0); Mean Corp Hgb Conc 33.3 g/dL (32-36); Mean Corpuscular Volume 92.9 fL (81-99); Mean Platelet Vol. 10.3 fl (6.2-12.0); NRBC Flagged by Analyzer 0 % (0-5); POSITIVE DIFFERENTIAL YES; Platelet Count 224 K/mm3 (150-450); RBC Distribution Width CV 12.6 % (11.6-14.6); RBC Distribution Width SD 43.4 fl (35.1-43.9); Red Blood Count 4.07 M/mm3 (4.2-5.4); White Blood Count 7.3 K/mm3 (4.4-11.0)
[2025-11-12 08:13] LABS: Anion Gap 11 (5-15); BUN 16 mg/dL (4-19); BUN/Creat Ratio 25.9 RATIO (10-20); Calcium,Total 9.0 mg/dL (7.6-11.0); Carbon Dioxide 21.5 mmol/L (21.0-32.0); Chloride 106 mmol/L (98-108); Estimated Creatinine Clearance 118.94 ml/min (50-250); Glucose 150 mg/dL (70-99); Potassium 4.4 mmol/L (3.3-5.1)
[2025-11-12 08:34] VITALS: PULSE 89
[2025-11-12] MEDS: Metoprolol(XL)Succ 25 MG Tablet 75 MG PO (08:34)
[2025-11-12 08:55] VITALS: BP 150/95; PULSE 89; RESP 16; TEMP 36.3; O2SAT 95
[2025-11-12 11:00] VITALS: PULSE 85
--- NOTE | 2025-11-12 11:59 | PCM.DC ---
Discharge Instructions DC O2, CPAP, BIPAP needs Home O2 Discharge instructions: No Dressing / Incision Discharge Activity: Return to Normal Activity Weight Bearing Status: Weight bearing as tolerated Dressing / Incision Call your doctor if you observe: Fever of 101 or Higher, Shortness of breath, Dizziness, Swelling in the ankles, Chest pain and Increased palpitations (irregular heartbeat) Follow Up Care Test Results: Test results from this visit will be discussed in further detail at your follow-up appointment, if applicable. Discharge Plan Admission Admit Date/Time: 11/11/25 00:46 Primary Reason for Your Visit: asthma exacerbation Attending Provider: Thelma Palmer Primary Care Provider: Mary Cobb NP Consulting Providers: Wally Wolff Instructions Patient Instructions: Asthma Discharge Orders/Prescriptions Prescriptions: New prednisone 20 mg tablet 40 mg PO DAILY 5 Days Qty: 10 0RF Continued multivitamin [Multiple Vitamins] Tablet 1 tablet PO DAILY Adult Probiotic 3 billion cell capsule 3,000 mmu cells PO DAILY Patient Comments: UNSURE OF STRENGTH Rx Instructions: if flare up-tid metoprolol succinate 50 mg tablet extended release 24 hr 50 mg PO DAILY Qty: 90 3RF albuterol sulfate 2.5 mg /3 mL (0.083 %) solution for nebulization 2.5 mg inhalation BID PRN (Reason: shortness of breath or wheezing) tramadol 50 mg tablet 50 mg PO BID PRN (Reason: severe pain) Patient Comments: PT ONLY TKAES ONCE A DAY IN THE MORNING Nattokinase 50 mg capsule 50 mg PO BID acetaminophen [Tylenol Extra Strength] 500 mg tablet 1,000 mg PO Q6H PRN (Reason: pain) niacin 500 mg tablet 500 mg PO DAILY Referrals / Follow Up: Mary Cobb ENVIRONMENTAL AID, ENVIRONMENTAL AID-C [Primary Care Provider, Family Practice] - Within 1 Week Disposition Disposition (needs filled in before D/C Order can be placed): Home, Self Care
--- NOTE | 2025-11-12 12:00 | PCM.DC.SUM ---
Providers Date of Admission: 11/11/25 Date of Discharge: 11/12/25 Primary Care Physician: Mary Cobb, [facility] Reason For Visit: TRANSIENT HYPOXIA Diagnosis Discharge Diagnosis (1) Hypoxia: Status: Acute Code(s): R09.02 - Hypoxemia Plan #Hypoxia likely due to acute exacerbation of asthma Feels better today. She is on 2 L of oxygen. Says there is usually wear oxygen. She has only minimal wheezing. Breathing treatments bronchodilators. Placed on IV Solu-Medrol. Titrate oxygen to maintain saturation above 90%. Chest x-ray on admission showed no acute cardiopulmonary pathology and CTA showed no evidence of PE but showed redemonstration of bilateral pulmonary mosaic attenuation on likely representing small airway disease of note, pateint says she sees an integrative medicine doctor on ouptatient basis, and has been prescribed inhaled meropenem to fight several bacteria she has in her lung. #Leucocytosis: etiology unclera. Will monitor #Afib Was in RVR on admission but this is now resolved. Metoprolol increased 75 mg daily. Has refused blood platelets and says she takes natokinase for anticoagulation. #DVT prophylaxis: SCDs Medications at Discharge Home Medications lactobacillus combination no.8 3 billion cell capsule (Adult Probiotic) 3,000 mmu cells PO DAILY 03/07/21 multivitamin (Multiple Vitamins tablet) 1 tablet PO DAILY 03/07/21 albuterol sulfate 2.5 mg/3 mL (0.083 %) solution for nebulization 2.5 mg inhalation BID PRN shortness of breath or wheezing 04/06/25 soybean, fermented 50 mg capsule (Nattokinase) 50 mg PO BID 04/06/25 tramadol 50 mg tablet 50 mg PO BID PRN severe pain 04/06/25 metoprolol succinate 50 mg tablet,extended release 24 hr 50 mg PO DAILY #90 tabs 09/21/25 acetaminophen 500 mg tablet (Tylenol Extra Strength) 1,000 mg PO Q6H PRN pain 11/10/25 niacin 500 mg tablet 500 mg PO DAILY 11/10/25 prednisone 20 mg tablet 40 mg (2 x 20 mg) PO DAILY 5 days #10 tabs 11/12/25 Hospital Course Operations None Procedures None Summary of Care Provided Minutes Spent on Discharge: 45 Hospital Course: Patient is a 60-year-old female with a past medical history as outlined who was admitted through the ED on 03/12/2025 with a complaint of shortness of breath. She also complained of severe abdominal pain which was really vague in location and onset. She had a still fever and chills on the day of admission but says it had resolved by hte time she came in. She went briefly to A-fib with RVR in the ED but it resolved with IV Lopressor. Oxygen saturation dropped to 87% on room air so she required oxygen and so was admitted for this reason. CT of the chest and CT of the abdomen and pelvis was negative for any acute pathology and CT of the chest showed pulmonary mosaic attenuation representing small airway disease. Patient did have a history of asthma and says she was following with an integrative medicine physician who had her on IV meropenem to cure 13 bacteria that were in her lungs. She was admitted and managed for hypoxia due to probable asthma exacerbation. She was placed on IV Solu-Medrol and breathing treatments with bronchodilators. Her shortness of breath resolved and she was weaned off of oxygen. She felt much better and was discharged home on 11/12/2025 on p.o. prednisone 40 mg daily for 5 days. She is follow-up with her primary care doctor within 1 to 2 weeks. Patient seen and examined prior to discharge. She had no active complaints and had an uneventful night. Review of systems otherwise negative. Labs and vitals reviewed. Home medication reviewed and reconciled. Physical Exam Const alert, oriented x3 and no apparent distress Constitutional Narrative: class III obesity General Appearance: cooperative and comfortable HEENT normocephalic, head/scalp atraumatic, hearing grossly normal bilaterally, moist oral mucous membranes and oropharynx normal Mouth: oral and palatal mucosa normal Eyes EOMs intact bilaterally and conjunctivae normal Neck supple and no JVD Lymph Lymphatic: no lymphedema noted Resp normal respiratory effort, normal air movement and clear to auscultation bilaterally Cardio regular rate, regular rhythm, S1 normal heart sound, S2 normal heart sound and no murmurs GI normal to inspection, nondistended, normoactive bowel sounds, soft to palpation and non-tender Extremity normal to inspection, full ROM and no clubbing, cyanosis or edema General Extremity: no tenderness to palpation of joints or extremities Skin no rashes or lesions noted General Skin Exam: no breakdown Neuro oriented x3, moves all extremities, no focal motor deficits, no sensory deficits noted and deep tendon reflexes 2+ bilaterally Sensorium / Orientation: awake and alert Motor Exam: strength 5/5 throughout Psych thought process normal, cooperative and affect normal Appearance: appropriate Weight / BMI Weight Weight: 248 lb 7.375 oz Body Mass Index (BMI) 44.0 ABG / Lab / Microbiology Data 11/12/25 07:23 11/12/25 07:23 Laboratory: Laboratory Results - last 24 hr 11/12/25 07:23: WBC 7.3, RBC 4.07 L, Hgb 12.6, Hct 37.8, MCV 92.9, MCH 31.0, MCHC 33.3, RDW Std Deviation 43.4, RDW Coeff of Merlyn 12.6, Plt Count 224, MPV 10.3, Immature Gran % (Auto) 0.400, Neut % (Auto) 90.7 H, Lymph % (Auto) 4.3 L, Knott % (Auto) 4.5, Eos % (Auto) 0.0, Baso % (Auto) 0.1, Absolute Neuts (auto) 6.6, Absolute Lymphs (auto) 0.31 L, Nucleated RBC % 0, Sodium 138, Potassium 4.4, Chloride 106, Carbon Dioxide 21.5, Anion Gap 11, BUN 16, Creatinine 0.60 L, Estim Creat Clear Calc 118.94, Est GFR (MDRD) Non-Af 102, BUN/Creatinine Ratio 25.9 H, Glucose 150 H, Calcium 9.0 Microbiology: Microbiology 11/10/25 22:00 Urine, Clean Catch Urine Culture - Preliminary Culture exhibits no growth. 11/10/25 19:35 Mucosa - Nose SARS-CoV-2, Influenza & RSV (PCR) - Final D/C Instructions Discharge Activity: Return to Normal Activity Weight Bearing Status: Weight bearing as tolerated Call your doctor if you observe: Fever of 101 or Higher, Shortness of breath, Dizziness, Swelling in the ankles, Chest pain and Increased palpitations (irregular heartbeat) DC O2, CPAP, BIPAP Needs Home O2 Discharge instructions: No DC home with Oxygen: No Patient's Goals Of Care - F/U Goals Reviewed Goals of care reviewed with patient: Yes - No change Meaningful Use Info Meaningful Use Meaningful Use Diagnoses (Choose all that apply): None applicable Discharge Plan Admission Admit Date/Time: 11/11/25 00:46 Primary Reason for Your Visit: asthma exacerbation Attending Provider: Thelma Palmer Primary Care Provider: Mary Cobb NP Consulting Providers: Wally Wolff Instructions Patient Instructions: Asthma Discharge Orders/Prescriptions Prescriptions: New prednisone 20 mg tablet 40 mg PO DAILY 5 Days Qty: 10 0RF Continued multivitamin [Multiple Vitamins] Tablet 1 tablet PO DAILY Adult Probiotic 3 billion cell capsule 3,000 mmu cells PO DAILY Patient Comments: UNSURE OF STRENGTH Rx Instructions: if flare up-tid metoprolol succinate 50 mg tablet extended release 24 hr 50 mg PO DAILY Qty: 90 3RF albuterol sulfate 2.5 mg /3 mL (0.083 %) solution for nebulization 2.5 mg inhalation BID PRN (Reason: shortness of breath or wheezing) tramadol 50 mg tablet 50 mg PO BID PRN (Reason: severe pain) Patient Comments: PT ONLY TKAES ONCE A DAY IN THE MORNING Nattokinase 50 mg capsule 50 mg PO BID acetaminophen [Tylenol Extra Strength] 500 mg tablet 1,000 mg PO Q6H PRN (Reason: pain) niacin 500 mg tablet 500 mg PO DAILY Referrals / Follow Up: Mary Cobb [facility], [facility] [Primary Care Provider, Family Practice] - Within 1 Week Disposition Disposition (needs filled in before D/C Order can be placed): Home, Self Care Charges/Coding Visit Charges Inpatient E&M: 21096 Disch Hosp >30min
== END 2025-11-12 13:56 | disposition home or self-care (01) ==
LOC: ED 20:51 → ICU 11-11 00:55
PROVIDERS: Admitting Provider Family Medicine; Emergency Provider Emergency Medicine; PCP Nurse Practitioner Family; Visit Provider Student in an Organized Health Care Education/Training Program
DX: J45.901 Unspecified asthma with (acute) exacerbation (principal); I48.20 Chronic atrial fibrillation, unspecified; E66.813 Obesity, class 3; Z68.41 Body mass index [BMI] 40.0-44.9, adult; E78.00 Pure hypercholesterolemia, unspecified; K42.9 Umbilical hernia without obstruction or gangrene; Z86.711 Personal history of pulmonary embolism; R09.02 Hypoxemia; Z79.899 Other long term (current) drug therapy; D72.829 Elevated white blood cell count, unspecified
CPT/HCPCS: 36415; 71046; 71275; 74177; 80048; 80053; 81001; 83605; 84484; 85025; 85610; 85730; 87040; 87086; 87631; 93005; 94640; 94760; 96361; 96374; 96375; 96376; 97802; 99221; 99285; Q9967; A4216; G0378; G0379; J2405